=== PATIENT | male | born 1955 | race Caucasian/White ===

== ENCOUNTER 2016-11-10 05:40 | Inpatient (IN) | payer OTHER ==
[~2016-11-10 05:40] MED LIST: ALBUMIN HUMAN 25% 50 ML IV ONE; ALBUMIN HUMAN 5% 500 ML IVPB ONE; ASPIRIN 325 MG TAB PO ONE; ATORVASTATIN 10 MG TAB PO ONE; CALCIUM CHLORIDE 100 MG/ML 10 ML SYRINGE IV ONE; CHLORHEXIDINE GLUCONATE 15 ML CUP MUCOUS MEM ONE; CLEVIDIPINE BUTYRATE 25 MG in EMPTY BAG 1 BAG IV ONE; DEXTROSE 5% IN WATER 1,000 ML with POTASSIUM CHLORIDE 110 MEQ, MAGNESIUM SULFATE 16 MEQ... IV ONE; DEXTROSE 5% IN WATER 1,000 ML with POTASSIUM CHLORIDE 25 MEQ, SODIUM CHLORIDE 4MEQ/ML V... IV ONE; HEPARIN SODIUM 1,000 UNIT/ML VIAL IV ONE; HEPARIN SODIUM,PORCINE 5,000 UNIT in SODIUM CHLORIDE 0.9% 500 ML IV ONE; INSULIN REGULAR 100 UNIT in SODIUM CHLORIDE 0.9% 100 ML IV ONE; LACTATED RINGERS 1,000 ML IV ONE; LACTATED RINGERS 1,000 ML IV SCH; MAGNESIUM SULFATE MG 500 MG/ML VIAL IV ONE; METOPROLOL TARTRATE 12.5 MG TAB PO ONE; NITROGLYCERIN-D5W PMX 25 MG/250 ML BTL IV ONE; NITROGLYCERIN-D5W PMX 50 MG in DEXTROSE/WATER 1 250ML.BAG IV ONE; NOREPINEPHRIN 4 MG-0.9% NS PMX 4 MG/250 ML ML IV ONE; PAPAVERINE 360 MG in SODIUM CHLORIDE 0.9% 90 ML IV ONE; PHENYLEPHRINE 40 MG in SODIUM CHLORIDE 0.9% 250 ML IV ONE; PHENYLEPHRINE-0.9% NACL SYG 1 MG/10 ML SYRINGE IV ONE; PROPOFOL 50 ML IV ONE; PROTAMINE SULFATE 10 MG/ML 25 ML VIAL IV ONE; PROTAMINE SULFATE 250 MG in EMPTY BAG 1 BAG IV ONE; SODIUM BICARB 8.4% 50 ML SYR (1 MEQ/ML) IV ONE; SODIUM CHLORIDE 0.9% 1,000 ML IV ONE; ceFAZolin 1,000 MG in SODIUM CHLORIDE 0.9% IRRIGATIO 1,000 ML IRRIGATION ONE; ceFAZolin 2,000 MG in SODIUM CHLORIDE 0.9% 30 ML IVPB ONE
[2016-11-10] MEDS ORDERED: LIDOCAINE 2% SYG (PF) 100 MG/5 ML ONE (08:00)
[2016-11-10] MEDS ORDERED: HEPARIN SODIUM 1,000 UNIT/ML VIAL ONE (08:00)
[2016-11-10] MEDS ORDERED: ALBUMIN HUMAN 5% 250 ML BOTTLE IVPB ONE (08:00)
[2016-11-10] MEDS ORDERED: PROPOFOL 10 MG/ML 20 ML VIAL IV ONE (08:00)
[2016-11-10] MEDS ORDERED: ceFAZolin 1,000 MG VIAL ONE (08:00)
[2016-11-10] MEDS ORDERED: fentaNYL (PF) 50 MCG/ML 50 ML VIAL ONE (08:00)
[2016-11-10] MEDS ORDERED: ePHEDrine 50 MG/ML 1 ML AMP ONE (08:00)
[2016-11-10] MEDS ORDERED: fentaNYL (PF) 50 MCG/ML 2 ML AMP ONE (08:00)
[2016-11-10] MEDS ORDERED: ELECTROLYTE-R (PH 7.4) 1,000 ML IV.SOLN IV ONE (08:00)
[2016-11-10] MEDS ORDERED: MIDAZOLAM 2 MG/2 ML VIAL ONE (08:00)
[2016-11-10] MEDS ORDERED: HEPARIN SODIUM,PORCINE 10,000 UNIT/ML 1 ML VIAL ONE (08:00)
[2016-11-10] MEDS ORDERED: MAGNESIUM SULFATE 4 MEQ/ML 2 ML VIAL ONE (08:00)
[2016-11-10] MEDS ORDERED: POTASSIUM CHLORIDE OPEN HEART 20 MEQ/50 ML BAG IVPB ONE (08:00)
[2016-11-10] MEDS ORDERED: VECURONIUM 10 MG VIAL IV ONE (08:00)
[2016-11-10] MEDS ORDERED: PHENYLEPHRINE-0.9% NACL SYG 1 MG/10 ML SYRINGE ONE (08:00)
[2016-11-10] MEDS ORDERED: PROTAMINE SULFATE 10 MG/ML 5 ML VIAL IV ONE (08:00)
[2016-11-10] MEDS ORDERED: SODIUM CHLORIDE 0.9% IRRIG 1,000 ML BTL IRRIGATION ONE (08:00)
[2016-11-10 09:07] LABS: Glucose,Whole Blood 108 mg/dL (75-99)
[2016-11-10 09:19] LABS: ABG Base Excess 1.7 mmol/L; ABG HCO3 26 mmol/L (21-25); ABG Oxygen Saturation 96.9 % (94-97); ABG PCO2 43 mmHg (35-45); ABG PH 7.41 (7.35-7.45); ABG PO2 86 mmHg (83-108)
[2016-11-10 10:38] LABS: Glucose,Whole Blood 128 mg/dL (75-99)
[2016-11-10 11:15] LABS: Glucose,Whole Blood 116 mg/dL (75-99)
[2016-11-10 12:00] LABS: Glucose,Whole Blood 129 mg/dL (75-99)
[2016-11-10 12:55] LABS: Glucose,Whole Blood 128 mg/dL (75-99)
[2016-11-10] MEDS ORDERED: NITROGLYCERIN-D5W PMX 50 MG in DEXTROSE/WATER 1 250ML.BAG IV SCH (13:56)
[2016-11-10] MEDS ORDERED: BENZOCAINE/MENTHOL LOZENG 1 EACH LOZENGE MUCOUS MEM PRN (13:56)
[2016-11-10] MEDS ORDERED: Potassium Replacement Protocol 1 EACH MISC MISCELLANE PRN ×2 (13:56→20:04)
[2016-11-10] MEDS ORDERED: Magnesium Replacement Protocol 1 EACH MISC MISCELLANE PRN ×3 (13:56→20:05)
[2016-11-10] MEDS ORDERED: ONDANSETRON 4 MG/2 ML VIAL IVP PRN (13:56)
[2016-11-10] MEDS ORDERED: CALCIUM GLUCONATE 2,000 MG in SODIUM CHLORIDE 0.9% 100 ML IVPB PRN (13:56)
[2016-11-10] MEDS ORDERED: ASPIRIN 300 MG SUPP RECTAL ONE (13:56)
[2016-11-10] MEDS ORDERED: METOCLOPRAMIDE 5 MG/ML 2 ML VIAL IVP PRN (13:56)
[2016-11-10] MEDS ORDERED: Phosphorus Replacement Protoco 1 EACH MISC MISCELLANE PRN ×2 (13:56→20:11)
[2016-11-10 14:13] LABS: Glucose,Whole Blood 117 mg/dL (75-99)
[2016-11-10] MEDS: MORPHINE SULFATE 2 MG/ML SYRINGE IVP PRN ×3 (14:30→18:07)
[2016-11-10 14:38] LABS: Ionized Calcium 4.6 mg/dL (4.5-5.3)
[2016-11-10 14:45] LABS: Basophils % (A) 0 %; CH 33.5; CHCM 34.9; Eosinophils # (A) 0.1 k/uL (0-0.7); Eosinophils % (A) 2 %; HCT 29.5 % (39.0-53.0); HDW 2.31; Luc # (Auto) 0.07; Luc % (Auto) 1; Lymphocytes % (A) 16 %; MCH 32.5 pg (25.0-35.0); MCHC 33.8 g/dL (31.0-37.0); MCV 96.2 fL (80.0-100.0); Mean Platelet Volume 6.9; Monocytes # (A) 0.1 k/uL (0-1.0); Monocytes % (A) 2 %; Neutrophils # (A) 5.3 k/uL (1.3-7.7); Neutrophils % (A) 79 %; RBC 3.07 m/uL (4.30-5.90); RDW 13.7 % (11.5-15.5); WBC 6.7 k/uL (3.8-10.6); WBC (Perox) 7.07
[2016-11-10 14:46] LABS: ALT 31 U/L (21-72); AST 21 U/L (17-59); Alkaline Phosphatase 35 U/L (38-126); Anion Gap 9 mmol/L; Blood Urea Nitrogen 10 mg/dL (9-20); Calcium 8.1 mg/dL (8.4-10.2); Carbon Dioxide 24 mmol/L (22-30); Chloride 102 mmol/L (98-107); Glucose 116 mg/dL (74-99); Non-African American GFR(MDRD) >60 (>60 ml/min/1.73 sqM); Potassium 4.1 mmol/L (3.5-5.1); Sodium 135 mmol/L (137-145); Total Bilirubin 0.8 mg/dL (0.2-1.3); Total Protein 5.7 g/dL (6.3-8.2)
[2016-11-10 14:50] LABS: INR 1.2 (<1.1); Partial Thromboplastin Time 26.1 sec (22.0-30.0); Prothrombin Time 11.8 sec (9.0-12.0)
[2016-11-10 14:54] LABS: Glucose,Whole Blood 138 mg/dL (75-99)
--- NOTE | 2016-11-10 14:57 | XR ---
EXAMINATION TYPE: XR chest 1V portable DATE OF EXAM: 11/10/2016 2:31 PM HISTORY: Post Op CABG COMPARISON: 11/03/2016 TECHNIQUE: Single view of the chest is submitted. FINDINGS: Endotracheal tube, NG tube, SG catheter, mediastianal drains and chest tubes are appropriately placed . Post operative changes of CABG. No sizeable pneumothorax. There is a near complete opacification of the right hemithorax which may reflect large pleural effusi on or hemothorax. The heart is not enlarged. IMPRESSION: 1. Post operative changes of CABG. 2. There is a near complete opacification of the right hemithorax which may reflect large pleural eff usion or hemothorax.
[2016-11-10] MEDS: PROPOFOL 500 MG in EMPTY BAG 1 BAG IV SCH ×5 (15:10→21:50)
[2016-11-10] MEDS: LACTATED RINGERS 1,000 ML IV SCH (15:11)
--- NOTE | 2016-11-10 15:12 | XR ---
EXAMINATION TYPE: XR chest 1V portable DATE OF EXAM: 11/10/2016 3:08 PM HISTORY: Post Op CABG COMPARISON: 11/10/2016 TECHNIQUE: Single view of the chest is submitted. FINDINGS: Endotracheal tube, NG tube, SG catheter, mediastianal drains and chest tubes are appropriately placed . Post operative changes of CABG. No sizeable pneumothorax. Moderate opacification right hemithorax with slight improvement in aeration. Correlate for atelectasi s and/or pleural effusion. The left lung is clear. The heart is not enlarged. IMPRESSION: 1. Moderate opacification right hemithorax with slight improvement in aeration. Correlate for atelec tasis and/or pleural effusion. The left lung is clear.
[2016-11-10] MEDS: CLEVIDIPINE BUTYRATE 25 MG in EMPTY BAG 1 BAG IV SCH ×2 (15:13→19:00)
[2016-11-10 15:30] LABS: ABG Base Excess -0.2 mmol/L; ABG HCO3 24 mmol/L (21-25); ABG Oxygen Saturation 99.3 % (94-97); ABG PCO2 39 mmHg (35-45); ABG PO2 149 mmHg (83-108); ABG TCO2 25 mmol/L (19-24)
[2016-11-10 16:04] LABS: Glucose,Whole Blood 126 mg/dL (75-99)
[2016-11-10] MEDS: ceFAZolin 2 GM in SODIUM CHLORIDE 0.9% 100 ML IVPB SCH (16:06)
[2016-11-10] MEDS: IPRATROPIUM-ALBUTEROL 3 ML NEB INHALATION SCH ×3 (16:44→23:15)
[2016-11-10 16:59] LABS: Glucose,Whole Blood 128 mg/dL (75-99)
--- NOTE | 2016-11-10 17:07 | XR ---
EXAMINATION TYPE: XR chest 1V portable DATE OF EXAM: 11/10/2016 4:52 PM COMPARISON: NONE INDICATION: Previous abnormal chest, post bronchoscopy. TECHNIQUE: Single frontal view of the chest is obtained. FINDINGS: The heart size is normal. The pulmonary vasculature is normal. Increased lung markings are on the right. An endotracheal tube is present with the tip above the fela na. Nasogastric tube transverses the thorax. There may be a mediastinal tube present on the right. Sw an-Sergey catheter is present with tip in the distal right pulmonary artery. Right-sided chest tube is present. No pneumothorax is evident. Left-sided chest tube is present. No left pneumothorax is presen t. IMPRESSION: 1. Improving aeration to the right lung compared to the previous abnormal chest x-ray. 2. Multiple lines and catheters discussed above.
[2016-11-10 17:14] LABS: Basophils % (A) 0 %; CH 33.8; CHCM 35.9; Eosinophils # (A) 0.1 k/uL (0-0.7); Eosinophils % (A) 2 %; HGB 11.4 gm/dL (13.0-17.5); Luc # (Auto) 0.08; Luc % (Auto) 1; Lymphocytes # (A) 1.1 k/uL (1.0-4.8); Lymphocytes % (A) 16 %; MCH 33.7 pg (25.0-35.0); MCHC 35.7 g/dL (31.0-37.0); MCV 94.4 fL (80.0-100.0); Mean Platelet Volume 6.6; Monocytes # (A) 0.2 k/uL (0-1.0); Monocytes % (A) 3 %; Neutrophils # (A) 5.4 k/uL (1.3-7.7); Neutrophils % (A) 78 %; RBC 3.39 m/uL (4.30-5.90); RDW 13.4 % (11.5-15.5); WBC 6.9 k/uL (3.8-10.6); WBC (Perox) 7.53
[2016-11-10 18:00] LABS: Glucose,Whole Blood 140 mg/dL (75-99)
[2016-11-10] MEDS: ACETAMINOPHEN IV (For NPO) 1,000 MG in EMPTY BAG 1 BAG IVPB SCH (18:12)
--- NOTE | 2016-11-10 18:13 | P.CNPUL ---
History of Present Illness Consult date: 11/10/16 Requesting physician: Ollie Ortega Reason for consult: other (status post CABG, patient is on mechanical ventilation.) Chief complaint: status post CABG History of present illness: this is a 61-year-old white male with recent cardiac evaluation by Dr. Gilman, patient was found to have significant coronary artery disease. He underwent elective myocardial revascularization today, postoperatively he was on mechanical ventilation, and I was asked to see him on consultation. Based on a consultation dated 11/03/2016done by the nurse practitioner of Dr. Ortega, patient was scheduled for bypass grafting using internal mammary artery, patient is known to have history of hyperlipidemia, hypertension, nicotine dependence, patient chews tobacco, and he had a previous history of PTCA. Patient is also known to have strong family history of coronary artery disease. Upon arrival to the ICU post surgery, patient was noted to have significant opacification of the right lung, and we clearly determined that the patient has a mucus plugging involving mostly the right upper lobe, and right middle lobe. Upon arrival to the ICU, stat bronchoscopy was done, and I was able to clear mucous plugs from the right upper lobe mostly, some mucous plugs from the right middle lobe, and minimal purulent secretions in the right lower lobe. Left side was noted to be unremarkable. Review of Systems ROS unobtainable: due to endotracheal tube Past Medical History Past Medical History: Coronary Artery Disease (CAD), Hypertension, Myocardial Infarction (PA) Additional Past Medical History / Comment(s): gout Last Myocardial Infarction Date:: 1999 History of Any Multi-Drug Resistant Organisms: None Reported Past Surgical History: Heart Catheterization With Stent Additional Past Surgical History / Comment(s): stent x1 Past Anesthesia/Blood Transfusion Reactions: No Reported Reaction Date of Last Stent Placement:: 1999 Past Psychological History: No Psychological Hx Reported Smoking Status: Current every day smoker Past Alcohol Use History: Heavy Additional Past Alcohol Use History / Comment(s): chews tobacco, one tin last 3- 4 days, drinks 6-8 beers a day Past Drug Use History: None Reported - Past Family History Sister(s) Family Medical History: Cancer Additional Family Medical History / Comment(s): thyroid Medications and Allergies Home Medications Medication Instructions Recorded Confirmed Type Aspirin EC [Ecotrin] 325 mg PO DAILY 11/01/15 11/10/16 History Metoprolol Tartrate [Lopressor] 25 mg PO BID 11/01/15 11/10/16 History Atorvastatin [Lipitor] 40 mg PO HS 11/03/16 11/10/16 History Enalapril/Hydrochlorothiazide 1 tab PO DAILY 11/03/16 11/10/16 History [Vaseretic 10-25 mg] Thiamine [Vitamin B-1] 100 mg PO DAILY 11/07/16 11/10/16 History Allergies Allergy/AdvReac Type Severity Reaction Status Date / Time Penicillins Allergy Rash/Hives Verified 11/07/16 14:29 Physical Exam Vitals: Vital Signs Temp Pulse Pulse Resp BP BP BP 11/10/16 17:30 77 19 11/10/16 17:15 74 20 11/10/16 17:13 72 11/10/16 17:00 75 19 11/10/16 16:45 70 13 11/10/16 16:30 76 16 11/10/16 16:15 67 11 L 11/10/16 16:00 97.2 F L 65 75 11 L 117/77 11/10/16 15:45 65 12 11/10/16 15:30 65 12 11/10/16 15:15 67 12 11/10/16 15:00 71 24 11/10/16 14:45 65 12 11/10/16 14:30 75 17 117/77 11/10/16 14:15 73 12 117/77 11/10/16 13:56 95.9 F L 11/10/16 06:02 98.1 F 53 L 18 163/81 176/81 Pulse Ox 11/10/16 17:30 97 11/10/16 17:15 100 11/10/16 17:13 11/10/16 17:00 11/10/16 16:45 100 11/10/16 16:30 97 11/10/16 16:15 99 11/10/16 16:00 99 11/10/16 15:45 98 11/10/16 15:30 98 11/10/16 15:15 99 11/10/16 15:00 97 11/10/16 14:45 100 11/10/16 14:30 99 11/10/16 14:15 100 11/10/16 13:56 99 11/10/16 06:02 99 Intake and Output 11/10/16 11/10/1617 06:59 14:59 22:59 Intake Total 148.5 187.75 Output Total 1671 400 Balance -1522.5 -212.25 Intake: Intake, IV Titration 148.5 187.75 Amount Clevidipine Butyrate 25 12 12 mg In Empty Bag 1 bag @ 1 MG/HR 2 mls/hr IV .Q24H [facility] Rx#:[id number] Insulin Regular 100 unit 2 In Sodium Chloride 0.9% 100 ml @ Per Protocol IV .Q0M GAL[facility] Rx#:[id number] Lactated Ringers 1,000 ml 100 100 @ 50 mls/hr IV .Q20H [facility] Rx#:[id number] Nitroglycerin-D5w Pmx 50 4.5 4 mg In Dextrose/Water 1 250ml.bag @ 5 MCG/MIN 1.5 mls/hr IV .Q24H [facility] Rx#: [id number] Propofol 500 mg In Empty 32 69.75 Bag 1 bag @ Titrate IV . Q0M [facility] Rx#:[id number] Output: Chest Tube Drainage 161 100 Left Lateral Chest 20 0 Mediastinal 70 55 Right Lateral Chest 71 45 Urine 1010 300 Estimated Blood Loss 500 Other: Voiding Method Indwelling Catheter Weight 89.61 kg 89.61 kg Patient Weight 11/11/16 06:59 Weight 89.61 kg ABP, PAP, CO, CI - Last 8 Hours Arterial Blood Pressure 119/58 Arterial Blood Pressure 130/63 Arterial Blood Pressure 119/61 Arterial Blood Pressure 98/57 Arterial Blood Pressure 126/69 Arterial Blood Pressure 110/55 Arterial Blood Pressure 113/54 Arterial Blood Pressure 113/55 Arterial Blood Pressure 115/53 Arterial Blood Pressure 115/54 Arterial Blood Pressure 131/68 Arterial Blood Pressure 116/56 Arterial Blood Pressure 168/63 Arterial Blood Pressure 156/75 Pulmonary Artery Pressure 45/25 Pulmonary Artery Pressure 37/22 Pulmonary Artery Pressure 34/21 Pulmonary Artery Pressure 39/27 Pulmonary Artery Pressure 49/28 Pulmonary Artery Pressure 36/21 Pulmonary Artery Pressure 26/18 Pulmonary Artery Pressure 34/24 Pulmonary Artery Pressure 36/20 Pulmonary Artery Pressure 37/21 Pulmonary Artery Pressure 44/30 Pulmonary Artery Pressure 36/21 Pulmonary Artery Pressure 41/23 Pulmonary Artery Pressure 38/25 Cardiac Output 5.4 Cardiac Output 5.4 Cardiac Output 5.4 Cardiac Output 5.1 Cardiac Output 5.1 Cardiac Output 5.1 Cardiac Output 5.1 Cardiac Output 6 Cardiac Output 5.5 Cardiac Output 5.9 Cardiac Index 2.6 Cardiac Index 2.4 Cardiac Index 2.9 Cardiac Index 2.6 Cardiac Index 2.8 Physical Exam: Revealed a 61-year-old white male on mechanical ventilation, in no distress. HEENT:[Neck is supple.] [No neck masses.] [No thyromegaly.] [No JVD.] endotracheal tube was noted to be intact. Chest: [diminished breath sounds on the right side with expiratory rhonchi and wheezes noted bilaterally.] Cardiac Exam: [Normal S1 and S2, no S3 gallop, 2/6 systolic murmur throughout the precordium, positive pericardial rub] Abdomen: [Soft, nontender, no megaly, no rebound, no guarding, normal bowel sounds.] Extremities: [No clubbing, no edema, no cyanosis.] Neurological Exam: [cannot be assessed, patient is fully sedated on mechanical ventilation. Results - Laboratory Findings CBC and BMP: 11/10/16 16:55 11/10/16 14:11 ABG ABG pH 7.40 (7.35-7.45) 11/10/16 14:52 ABG pCO2 39 mmHg (35-45) 11/10/16 14:52 ABG pO2 149 mmHg (83-108) H 11/10/16 14:52 ABG O2 Saturation 99.3 % (94-97) H 11/10/16 14:52 PT/INR, D-dimer PT 11.8 sec (9.0-12.0) 11/10/16 14:11 INR 1.2 (<1.1) 11/10/16 14:11 Abnormal lab findings: Abnormal Labs 11/03/16 11/10/16 11/10/16 10:10 09:02 09:09 RBC Hgb Hct ABG pO2 ABG HCO3 26 H ABG Total CO2 ABG O2 Saturation Sodium Glucose POC Glucose (mg/dL) 108 H Calcium Alkaline Phosphatase Total Protein Crossmatch See Detail 11/10/16 11/10/16 11/10/16 10:35 11:14 11:58 RBC Hgb Hct ABG pO2 ABG HCO3 ABG Total CO2 ABG O2 Saturation Sodium Glucose POC Glucose (mg/dL) 128 H 116 H 129 H Calcium Alkaline Phosphatase Total Protein Crossmatch 11/10/16 11/10/1617 12:52 14:10 14:11 RBC 3.07 L Hgb 10.0 L D Hct 29.5 L ABG pO2 ABG HCO3 ABG Total CO2 ABG O2 Saturation Sodium Glucose POC Glucose (mg/dL) 128 H 117 H Calcium Alkaline Phosphatase Total Protein Crossmatch 11/10/16 11/10/16 11/10/16 14:11 14:52 14:53 RBC Hgb Hct ABG pO2 149 H ABG HCO3 ABG Total CO2 25 H ABG O2 Saturation 99.3 H Sodium 135 L Glucose 116 H POC Glucose (mg/dL) 138 H Calcium 8.1 L Alkaline Phosphatase 35 L Total Protein 5.7 L Crossmatch 11/10/16 11/10/16 11/10/16 16:03 16:55 16:55 RBC 3.39 L Hgb 11.4 L Hct 32.0 L ABG pO2 ABG HCO3 ABG Total CO2 ABG O2 Saturation Sodium Glucose POC Glucose (mg/dL) 126 H 128 H Calcium Alkaline Phosphatase Total Protein Crossmatch 11/10/16 17:59 RBC Hgb Hct ABG pO2 ABG HCO3 ABG Total CO2 ABG O2 Saturation Sodium Glucose POC Glucose (mg/dL) 140 H Calcium Alkaline Phosphatase Total Protein Crossmatch - Diagnostic Findings Chest x-ray: image reviewed (significant opacification noted of the right lung related to mucus plugging mostly involving the right upper lobe and right middle lobe) Assessment and Plan Plan: impression: 1 status post CABG, postoperative day #0. 2 history of nicotine dependence and suspect some component of COPD 3 history of documented coronary artery disease based on a recent cardiac catheterization 4 history ofpercutaneous revascularization of the proximal right coronary artery in 2000 5history of hypertension 6 history of myocardial infarction 7 status post bronchoscopy and bronchoalveolar lavage of the right upper lobe read lobe and right lower lobe upon arrival to the ICU. From the OR Recommendation: Patient will be kept on mechanical ventilation tonight, will be placed on bronchodilators, steroids, keep the patient on relatively high PEEP, and we will use a relatively higher tidal volumes. Based on the chest x-ray in a.m., may consider weaning and extubation. Discussed his condition with the family prior to bronchoscopy. Time with Patient: Greater than 30
[2016-11-10] MEDS: methylPREDNISolone SOD SUCCI 40 MG/ML 1 ML VIAL IV SCH (18:36)
[2016-11-10 19:09] LABS: Glucose,Whole Blood 147 mg/dL (75-99)
--- NOTE | 2016-11-10 19:23 | CONS ---
DATE OF CONSULTATION: REASON FOR CONSULTATION: Management of elevated blood sugars. Patient is a very pleasant 61-year-old gentleman who is admitted for coronary artery bypass grafting. Patient is intubated and sedated, calm at present. Patient is on 80% FiO2. Patient has 3 chest tubes, one right, left and sternal chest tube which is draining bloody fluid. Patient has near-complete whitening of the right chest, for which patient is undergoing extensive suctioning. Pulmonary will evaluate the patient as well. FiO2 is being tapered down. Patient will soon be extubated today or tomorrow, depending on his parameters and repeat chest x-ray findings. Patient's blood sugars are a bit elevated and patient is on IV insulin at this point of time. His elevated blood sugars are due to D5 nitroglycerin. Patient is getting IV insulin as per the protocol. Patient is also on clevidipine to prevent vasospasm. REVIEW OF SYSTEMS: Unable to obtain at this point of time because of his clinical condition. Medications were reviewed. Significant ones are discussed above. Past medical history is significant for: 1. Coronary artery disease. 2. Hypertension. 3. Myocardial infarction in the past. 4. Cardiac catheterization with stent placement in the past as well. SOCIAL HISTORY: Patient is a heavy smoker; smokes 3 to 4 cigarettes per day. Drinks about 6 to 8 beers a day. No drug abuse history. FAMILY HISTORY: Thyroid cancer. PHYSICAL EXAMINATION: VITAL SIGNS: Temperature 96.9, pulse of 68, respiratory rate of 12. Blood pressure is 117/77. Saturating at 98% on above-mentioned vent settings. Rest of the vent settings are PEEP of 5, set-up respiratory rate of 12, and patient is breathing over the ventilator. Patient is sedated, intubated, calm. RASS score of around minus 2 to minus 3. HEENT: Pupils are round and equally reacting to light. EOMI. No scleral icterus. No conjunctival pallor. Normocephalic, atraumatic. No pharyngeal erythema. No thyromegaly. CHEST EXAMINATION: Chest tubes as mentioned above. ABDOMEN: Soft, nontender, nondistended, normoactive bowel sounds. No palpable organomegaly. MUSCULOSKELETAL: No joint swelling or deformity. EXTREMITIES: No cyanosis, clubbing, or pedal edema. NEUROLOGICAL: RASS score minus 2 to minus 3. SKIN: No rashes. LABORATORY DATA: CBC, CMP essentially within normal limits. Chest x-ray findings as mentioned above. Moderate opacification of right hemithorax, for which patient already has a chest tube in, and also deep suctioning is being done. ASSESSMENT AND PLAN: 1. Acute hypoxic respiratory failure post cardiac catheterization. Patient is intubated, sedated. Pulmonary will evaluate the patient as well. Patient has near-complete opacity of the right chest. Patient already has a right chest tube and also undergoing deep suctioning. Further management as per pulmonary service. 2. Elevated blood sugars due to D5 with nitroglycerin. Continue with IV insulin as per the protocol from Cardiothoracic Surgery. 3. Myocardial infarction in the past. 4. Nicotine abuse. 5. Alcohol abuse. Patient is expected to have withdrawals. Will watch for any alcohol withdrawals. 6. Coronary artery disease, for which patient underwent CABG. Postoperative CABG management as per primary service. Thank you for letting me participate in this patient's care. Will continue to follow the patient.
[2016-11-10 19:24] LABS: Basophils % (A) 0 %; CH 33.5; CHCM 34.7; Eosinophils # (A) 0.1 k/uL (0-0.7); Eosinophils % (A) 1 %; HCT 32.8 % (39.0-53.0); HDW 2.31; HGB 11.1 gm/dL (13.0-17.5); Luc # (Auto) 0.06; Luc % (Auto) 1; Lymphocytes # (A) 0.7 k/uL (1.0-4.8); Lymphocytes % (A) 10 %; MCH 32.8 pg (25.0-35.0); MCHC 33.8 g/dL (31.0-37.0); Mean Platelet Volume 6.9; Monocytes # (A) 0.2 k/uL (0-1.0); Monocytes % (A) 3 %; Neutrophils # (A) 6.2 k/uL (1.3-7.7); Neutrophils % (A) 85 %; RBC 3.38 m/uL (4.30-5.90); RDW 13.8 % (11.5-15.5); WBC 7.3 k/uL (3.8-10.6)
[2016-11-10 19:31] LABS: ALT 31 U/L (21-72); AST 24 U/L (17-59); Alkaline Phosphatase 41 U/L (38-126); Anion Gap 9 mmol/L; Blood Urea Nitrogen 9 mg/dL (9-20); Calcium 8.3 mg/dL (8.4-10.2); Carbon Dioxide 24 mmol/L (22-30); Chloride 100 mmol/L (98-107); Glucose 142 mg/dL (74-99); Magnesium 1.9 mg/dL (1.6-2.3); Non-African American GFR(MDRD) >60 (>60 ml/min/1.73 sqM); Phosphorous 2.3 mg/dL (2.5-4.5); Potassium 3.9 mmol/L (3.5-5.1); Sodium 133 mmol/L (137-145); Total Bilirubin 0.6 mg/dL (0.2-1.3); Total Protein 6.2 g/dL (6.3-8.2)
[2016-11-10] MEDS: BUDESONIDE 1 MG/2 ML NEBU INHALATION SCH (19:31)
[2016-11-10 20:00] LABS: ABG Base Excess -1.9 mmol/L; ABG HCO3 21 mmol/L (21-25); ABG PCO2 30 mmHg (35-45); ABG PH 7.46 (7.35-7.45); ABG PO2 84 mmHg (83-108); ABG TCO2 22 mmol/L (19-24)
[2016-11-10 20:00] LABS: Glucose,Whole Blood 138 mg/dL (75-99)
[2016-11-10] MEDS: MAGNESIUM SULFATE-D5W PMX 1 GM in DEXTROSE/WATER 1 100ML.BAG IVPB SCH ×2 (20:26→21:25)
--- NOTE | 2016-11-10 20:46 | XR ---
EXAMINATION TYPE: XR chest 1V portable DATE OF EXAM: 11/10/2016 8:29 PM COMPARISON: Today HISTORY: Hypoxemia TECHNIQUE: Single frontal view of the chest is obtained. FINDINGS: There is no gross heart failure.. There is a right chest tube in good position. There is r ight jugular catheter with the tip probably in the right ventricle. Nasogastric tube is noted. Endotr acheal tube appears in good position. There is mild linear density at the lung bases. I see no pneumo thorax. There is a left chest tube noted. There is blunting of costophrenic angles. IMPRESSION: Patchy atelectasis at the lung bases with pleural effusions. No significant change katheryn red to exam earlier today at 5:00 PM.
[2016-11-10] MEDS ORDERED: POTASSIUM CHLORIDE ORAL LIQUID 40 MEQ/30 ML CUP NG-TUBE SCH (21:00)
[2016-11-10] MEDS ORDERED: SODIUM PHOSPHATE 10 MMOL in SODIUM CHLORIDE 0.9% 250 ML IVPB ONE (21:00)
[2016-11-10 21:02] LABS: Glucose,Whole Blood 192 mg/dL (75-99)
[2016-11-10] MEDS: INSULIN REGULAR 100 UNIT in SODIUM CHLORIDE 0.9% 100 ML IV SCH (21:16)
[2016-11-10] MEDS: HEPARIN SODIUM,PORCINE 5,000 UNIT/ML 1 ML VIAL SQ SCH (21:25)
[2016-11-10] MEDS: ALBUMIN HUMAN 5% 250 ML in EMPTY BAG 1 BAG IVPB PRN ×2 (21:51→22:49)
[2016-11-10 22:08] LABS: Glucose,Whole Blood 206 mg/dL (75-99)
--- NOTE | 2016-11-10 22:28 | OP ---
DATE OF SERVICE: SURGEON: Ollie Ortega MD HAT MARKER: Yony Bautista and Rianna JONES PREOPERATIVE DIAGNOSES: 1. Coronary artery disease, status post prior stenting to his right coronary artery. 2. Preserved Left ventricular function. 3. Hyperlipidemia. 4. Hypertension. 5. ETOH abuse. POSTOPERATIVE DIAGNOSES: 1. Coronary artery disease, status post prior stenting to his right coronary artery. 2. Preserved Left ventricular function. 3. Hyperlipidemia. 4. Hypertension. 5. ETOH abuse. OPERATION: 1. Total arterial non- aortic touch off-pump double coronary artery bypass grafting using in situ skeletonized right internal mammary artery to the left anterior descending artery across the anterior midline, in situ totally skeletonized left internal mammary artery to the first obtuse marginal artery. 2. Transesophageal echocardiogram and epiaortic scanning. 3. Intraoperative graft flow measurements using the [place] system. ANESTHESIA: ESTIMATED BLOOD LOSS: SPECIMENS REMOVED: COMPLICATIONS: OPERATIVE FINDINGS: INDICATION FOR SURGERY: Patient is a 61-year-old gentleman who underwent in 2000 stenting to his proximal right coronary artery. Patient failed a recent stress test and underwent cardiac catheterization that showed mild in-stent restenosis. However, he had severe stenosis of the left system. There is a small second obtuse marginal artery that is probably too small for bypass. Patient has been brought in for bypass to his LAD, and his first obtuse marginal artery with no plans to bypass the right coronary artery (non flow limiting in- stent restenosis) and this was decided along with the patient valve pipe irrigator. We will be using bilateral internal mammary artery in view of the patient's age. Risks, benefits, and alternatives were discussed with him. He understood them and agreed to proceed. DESCRIPTION OF THE PROCEDURE: Patient had a right internal jugular Draper-Sergey catheter and a right radial arterial line placed in the preoperative holding area. His PA pressure was 50/20 and cardiac index was 2.2. Subsequently he was brought to the operating room, where general endotracheal anesthesia was induced uneventfully. Patient received 2 grams of cefazolin intravenously. The Tay catheter was inserted. The chest, abdomen and both lower extremities were prepped and draped using ChloraPrep. Ioban was used to cover the skin. Transesophageal echocardiogram revealed mild mitral valve regurgitation and overall preserved left ventricular function. Midline sternotomy was performed and no bone wax was used. The left hemisternum was elevated and the left internal mammary artery was harvested in a totally skeletonized fashion. The left pleura was intentionally opened and in this process and was drained with a 8 [place] chest tube. The same was repeated on the right side. The right hemisternum was elevated and the right internal mammary artery was harvested in a totally skeletonized fashion. The right pleura was intentionally opened in this process was drained with 28 [place] chest tube the patient was given 5000 units of heparin initially before double clipping the left internal mammary artery before its bifurcation and transecting it and had an excellent pulsatile flow in it and was around 2.5 mm in diameter and we clipped the right internal mammary artery beyond the bifurcation and it had an excellent flow in it and was around 2 mm in diameter. Mediastinal fat was transected between 2 ties and epiaortic scanning revealed normal ascending aorta. Pericardium was opened in an inverted T fashion and pericardial cradle was created. Findings included a short aorta and a mildly enlarged heart. The [employer] system along with the exposed device were used to perform the surgery on a beating heart. Heparinization to achieve an ACT above 250 seconds was administered. The ACT was repeated every 20 to 30 minutes and additional heparin given if needed. The first distal anastomosis was between the in situ right internal mammary artery that crossed the midline and went anteriorly to the mid aspect of the left anterior descending artery, which was found in an intramyocardial position. That artery, accepted a 1.5 mm shunt, had profuse flow in it and the anastomosis was completed using Prolene 7-0 in continuous fashion. The anastomosis appeared satisfactory and graft flow measurement revealed a flow of 68 mL per minute with diastolic filling at 71%, showing excellent graft. Subsequently using the exposed device, we exposed the lateral wall. As predicted the second obtuse marginal artery was a small non- bypassable vessel and the first obtuse marginal artery site for bypass was seen proximally but was mainly intramyocardial. That artery was opened as it went intra-myocardial very proximally by the KATRINA, accepted a 2 mm shunt, had profuse flow in it and the left internal mammary artery was anastomosed to it using Prolene 7-0 in continuous fashion. The shunt was removed before completing the anastomosis, which was well tolerated. A deep groove was made on the right and on the left pleural pericardial fat to accommodate respective mammary medial to the lung and away from the posterior sternal table. There was no kinking noted of the grafts. Measurements of graft flow in the ROPER with the heart down and everything positioned remained excellent. Satisfied with the distal anastomoses, test dose and full dose protamine was given. A 36 [place] chest tube was left in the substernal place. The pericardial fat was loosely approximated over the conduits however, I could not cover the last third of the right internal mammary artery on the left side in view of paucity of fat. After ensuring adequate hemostasis and hemodynamics and after correct sponge, instrument and needle count, the sternum was approximated using 5 [id number] Blanco cable after interposing fibrillar between the sternal edges. Thorough irrigation with cefazolin followed. The rest of the closure proceeded in layers. Skin glue was applied. Patient did not receive any blood bank product and received 250 mL of Cell Saver.Patient was transferred to the ICU on low-dose nitroglycerin with excellent hemodynamics and normal EKG. Transesophageal echocardiogram done at the end of the case showed no changes. MTDD
[2016-11-10] MEDS ORDERED: PROPOFOL 10 MG/ML 50 ML VIAL IV ONE (23:30)
[2016-11-11] MEDS ORDERED: PROPOFOL 10 MG/ML 50 ML VIAL IV ONE ×2 (01:36)
[2016-11-11] MEDS: IPRATROPIUM-ALBUTEROL 3 ML NEB INHALATION SCH ×6 (03:07→23:24)
[2016-11-11 04:20] LABS: Glucose,Whole Blood 209 mg/dL (75-99)
[2016-11-11 04:20] LABS: Glucose,Whole Blood 182 mg/dL (75-99)
[2016-11-11 04:20] LABS: Glucose,Whole Blood 207 mg/dL (75-99)
[2016-11-11 04:20] LABS: Glucose,Whole Blood 192 mg/dL (75-99)
[2016-11-11 04:21] LABS: Glucose,Whole Blood 175 mg/dL (75-99)
[2016-11-11 04:44] LABS: Glucose,Whole Blood 165 mg/dL (75-99)
[2016-11-11 05:07] LABS: Basophils % (A) 0 %; CH 33.2; CHCM 34.3; Eosinophils % (A) 0 %; HCT 30.3 % (39.0-53.0); HDW 2.36; HGB 10.4 gm/dL (13.0-17.5); Luc # (Auto) 0.04; Luc % (Auto) 1; Lymphocytes # (A) 0.4 k/uL (1.0-4.8); Lymphocytes % (A) 6 %; MCH 33.4 pg (25.0-35.0); MCHC 34.4 g/dL (31.0-37.0); MCV 97.3 fL (80.0-100.0); Mean Platelet Volume 6.7; Monocytes # (A) 0.1 k/uL (0-1.0); Monocytes % (A) 2 %; Neutrophils # (A) 7.3 k/uL (1.3-7.7); Neutrophils % (A) 92 %; RBC 3.12 m/uL (4.30-5.90); RDW 13.7 % (11.5-15.5); WBC 7.9 k/uL (3.8-10.6); WBC (Perox) 8.42
[2016-11-11 05:12] LABS: INR 1.1 (<1.1); Partial Thromboplastin Time 24.1 sec (22.0-30.0)
[2016-11-11] MEDS: PROPOFOL 500 MG in EMPTY BAG 1 BAG IV SCH ×9 (05:14→21:50)
[2016-11-11 05:48] LABS: Glucose,Whole Blood 172 mg/dL (75-99)
[2016-11-11 05:59] LABS: Ionized Calcium 4.8 mg/dL (4.5-5.3)
[2016-11-11 06:06] LABS: ALT 22 U/L (21-72); AST 20 U/L (17-59); Alkaline Phosphatase 33 U/L (38-126); Anion Gap 17 mmol/L; Blood Urea Nitrogen 8 mg/dL (9-20); Calcium 8.5 mg/dL (8.4-10.2); Carbon Dioxide 19 mmol/L (22-30); Chloride 102 mmol/L (98-107); Glucose 162 mg/dL (74-99); Magnesium 2.5 mg/dL (1.6-2.3); Non-African American GFR(MDRD) >60 (>60 ml/min/1.73 sqM); Phosphorous 1.5 mg/dL (2.5-4.5); Potassium 3.4 mmol/L (3.5-5.1); Sodium 138 mmol/L (137-145); Total Bilirubin 0.4 mg/dL (0.2-1.3); Total Protein 6.1 g/dL (6.3-8.2)
[2016-11-11 06:52] LABS: Glucose,Whole Blood 170 mg/dL (75-99)
[2016-11-11] MEDS ORDERED: POTASSIUM CHLORIDE ORAL LIQUID 40 MEQ/30 ML CUP PO ONE ×2 (07:00→22:17)
[2016-11-11] MEDS: POTASSIUM CHLORIDE 10 MEQ in WATER FOR INJECTION 1 100ML.BAG IVPB SCH ×2 (07:00→08:05)
[2016-11-11] MEDS ORDERED: FUROSEMIDE 10 MG/ML 2 ML VIAL IV ONE ×2 (07:00→22:18)
[2016-11-11] MEDS: SODIUM PHOSPHATE 10 MMOL in SODIUM CHLORIDE 0.9% 250 ML IVPB SCH ×2 (07:08→09:29)
--- NOTE | 2016-11-11 07:19 | PCN ---
DATE OF PROCEDURE: PROCEDURE: Bronchoscopy and bronchoalveolar lavage of the right upper lobe, right middle lobe and right lower lobe. PREOPERATIVE DIAGNOSIS: Acute right lung collapse secondary to mucus plugging involving mostly the right upper lobe and right middle lobe. POSTOPERATIVE DIAGNOSIS: Acute right lung collapse secondary to mucus plugging involving mostly the right upper lobe and right middle lobe. ANESTHESIA USED: Patient was already on propofol, and he received morphine sulfate 2 mg in addition to the propofol drip. PROCEDURE: Patient was already on mechanical ventilation postoperatively from CABG. He was monitored, we were able to monitor his O2 saturation continuously, blood pressure was monitored continuously and cardiac rhythm was also continuously monitored. Patient was already on mechanical ventilation with endotracheal tube in place, and an adapter was applied to the endotracheal tube, which was also connected to mechanical ventilation. After adequate sedation, the bronchoscope was advanced through the adapter down to the endotracheal tube and down to the distal the trachea and stephanie. A thorough examination was done on the left side; there was no evidence of any endobronchial tumors or secretions on the left side. Left upper lobe, lingula, and left lower lobe were all well examined. However, as we entered the right mainstem bronchus, there was a significant mucous plugging involving the right upper lobe, completely occluding the right upper lobe. This was suctioned and the right upper lobe was lavaged. Minimal mucous plugs were noted in the right middle lobe and these were also suctioned. As we went down to the right lower lobe, there were minimal purulent secretions and these were suctioned easily. Procedure was well tolerated. No evidence of any immediate complications. The purulent secretions and mucous plugs were sent for different cultures.
[2016-11-11] MEDS: BUDESONIDE 1 MG/2 ML NEBU INHALATION SCH ×2 (07:54→19:18)
[2016-11-11 07:59] LABS: Glucose,Whole Blood 163 mg/dL (75-99)
[2016-11-11] MEDS: ACETAMINOPHEN IV (For NPO) 1,000 MG in EMPTY BAG 1 BAG IVPB SCH ×4 (08:04→19:48)
--- NOTE | 2016-11-11 08:05 | XR ---
EXAMINATION TYPE: XR chest 1V portable DATE OF EXAM: 11/11/2016 7:00 AM HISTORY: Post Operative Cardiac Surgery. REFERENCE: Previous study dated 11/10/2016. FINDINGS: There has been a previous midline sternotomy. The patient is ET tube, NG tube and [place] catheter remain in place, unchanged in appearance. The tip of the [place] catheter appears to be i n the main pulmonary outflow tract. Bilateral pleural drains are in place. There is left basilar atelectasis. There are small, bilateral effusions, worse on the left the right. Aeration at the right lung base has improved. The heart remains enlarged. IMPRESSION: CONTINUING POSTOPERATIVE CHANGE.
[2016-11-11] MEDS: ceFAZolin 2 GM in SODIUM CHLORIDE 0.9% 100 ML IVPB SCH ×3 (08:07)
[2016-11-11] MEDS: HEPARIN SODIUM,PORCINE 5,000 UNIT/ML 1 ML VIAL SQ SCH ×2 (08:07→15:17)
[2016-11-11] MEDS: methylPREDNISolone SOD SUCCI 40 MG/ML 1 ML VIAL IV SCH ×3 (08:07→15:18)
[2016-11-11] MEDS: METOPROLOL TARTRATE 12.5 MG TAB PO SCH ×3 (08:09→21:54)
[2016-11-11] MEDS: ASPIRIN 325 MG TAB PO SCH (08:09)
[2016-11-11] MEDS: PANTOPRAZOLE 40 MG/10 ML VIAL IVP SCH (08:10)
[2016-11-11 09:02] LABS: Glucose,Whole Blood 170 mg/dL (75-99)
[2016-11-11 09:11] LABS: ABG HCO3 19 mmol/L (21-25); ABG PCO2 35 mmHg (35-45); ABG PH 7.36 (7.35-7.45); ABG PO2 76 mmHg (83-108)
[2016-11-11 09:12] LABS: ABG Base Excess -5.6 mmol/L; ABG Oxygen Saturation 94.6 % (94-97); ABG TCO2 20 mmol/L (19-24)
[2016-11-11] MEDS: CLOPIDOGREL 75 MG TAB PO SCH (09:29)
[2016-11-11] MEDS: ATORVASTATIN 40 MG TAB PO SCH (09:29)
[2016-11-11 10:11] LABS: Glucose,Whole Blood 159 mg/dL (75-99)
[2016-11-11 11:09] LABS: Glucose,Whole Blood 149 mg/dL (75-99)
[2016-11-11 11:18] LABS: ABG Base Excess -3.9 mmol/L; ABG HCO3 20 mmol/L (21-25); ABG PCO2 33 mmHg (35-45); ABG PO2 63 mmHg (83-108); ABG TCO2 21 mmol/L (19-24)
--- NOTE | 2016-11-11 11:22 | P.PN ---
<Nasra Whaley - Last Filed: 11/11/16 11:11> Subjective Principal diagnosis: Coronary artery disease, status post prior stenting to his right coronary artery. Preserved left ventricular function. Hyperlipidemia. Hypertension. ETOH abuse. POD #1 total arterial non-aortic patch off-pump double coronary artery bypass grafting using in situ skeletonized right internal mammary artery to the left anterior descending artery across the anterior midline in situ totally skeletonized left internal mammary artery to the first obtuse marginal artery. Intraoperative transesophageal echocardiogram and epi-aortic scanning. Intraoperative graft flow measurements using the [employer] system Patient currently sedated on mechanical ventilation. Objective - Vital Signs Vital signs: Vital Signs Temp 98.2 F 11/10/16 20:00 Pulse 85 11/11/16 10:30 Resp 20 11/11/16 10:30 BP 158/82 11/11/16 10:30 Pulse Ox 93 L 11/11/16 10:30 Intake & Output 11/10/16 11/11/16 11/11/16 18:59 06:59 18:59 Intake Total 502.25 1819.469 865.933 Output Total 2351 1012 735 Balance -1848.75 807.469 130.933 Weight 89.61 kg 99.8 kg 99.8 kg Intake: Intake, IV Titration 502.25 1819.469 865.933 Amount ACETAMINOPHEN IV (For NPO 200 100 ) 1,000 mg In Empty Bag 1 bag @ 400 mls/hr IVPB Q6HR [facility] Rx#:[id number] Albumin Human 5% 250 ml 500 In Empty Bag 1 bag @ 250 mls/hr IVPB Q1HR [facility] Rx#: [id number] Clevidipine Butyrate 25 36 50.301 1.733 mg In Empty Bag 1 bag @ 1 MG/HR 2 mls/hr IV .Q24H [facility] Rx#:[id number] Insulin Regular 100 unit 4 13.018 60.684 In Sodium Chloride 0.9% 100 ml @ Per Protocol IV .Q0M [facility] Rx#:[id number] Lactated Ringers 1,000 ml 300 500 180 @ 20 mls/hr IV .Q24H [facility] Rx#:[id number] Magnesium Sulfate-D5w Pmx 200 1 gm In Dextrose/Water 1 100ml.bag @ 100 mls/hr IVPB Q1H [facility] Rx#: [id number] Nitroglycerin-D5w Pmx 50 10.5 52.65 17.600 mg In Dextrose/Water 1 250ml.bag @ 5 MCG/MIN 1.5 mls/hr IV .Q24H [facility] Rx#: [id number] Potassium Chloride 10 meq 100 In Water For Injection 1 100ml.bag @ 100 mls/hr IVPB Q1H [facility] Rx#: [id number] Propofol 500 mg In Empty 151.75 178.50 55.916 Bag 1 bag @ Titrate IV . Q0M [facility] Rx#:[id number] Sodium Phosphate 10 mmol 125 In Sodium Chloride 0.9% 250 ml @ 125 mls/hr IVPB ONCE ONE Rx#:[id number] Sodium Phosphate 10 mmol 250 In Sodium Chloride 0.9% 250 ml @ 125 mls/hr IVPB Q2H [facility] Rx#:[id number] ceFAZolin 2 gm In Sodium 100 Chloride 0.9% 100 ml @ 100 mls/hr IVPB Q8HR [facility] Rx#:[id number] Output: Chest Tube Drainage 341 252 50 Left Lateral Chest 20 62 20 Mediastinal 185 160 0 Right Lateral Chest 136 30 30 Urine 1510 760 685 Estimated Blood Loss 500 Other: Voiding Method Indwelling Catheter Indwelling Catheter Indwelling Catheter # Bowel Movements 0 0 ABP, PAP, CO, CI - Last Documented Arterial Blood Pressure 158/63 Pulmonary Artery Pressure 53/27 Cardiac Output 8.1 Cardiac Index 3.9 - Constitutional General appearance: Present: no acute distress - Respiratory Details: Lungs sounds diminished bilaterally. Respirations even, nonlabored on mechanical ventilation. Current settings tidal [place] 500, FiO2 50%, respiratory 20, PEEP 8. All chest tubes connected to -20 cm wall suction, no air leaks present. Left pleural chest tube draining to 23 mL serosanguineous fluid in the last 8 hours, 100 mL since surgery. Right pleural chest tube draining 10 mL serosanguineous fluid in the last 8 hours 250 mL since surgery. Mediastinal chest tube drained 110 mL serosanguineous fluid in the last 8 hours, 400 mL since surgery. - Cardiovascular Details: S1, S2 present. Regular rate and rhythm, normal sinus rhythm on telemetry. Sternum stable. Lima-Sergey catheter present through right internal jugular cordis line. Left radial arterial line present. Teds/SCDs present. - Gastrointestinal Gastrointestinal Comment(s): Abdomen soft, nontender, nondistended. Hypoactive bowel sounds present. OG tube present to low intermittent suction - Genitourinary Genitourinary Comment(s): Tay present draining clear, yellow urine. Urine output 60-125 mL per hour. - Integumentary Integumentary Comment(s): Anterior chest wall incision covered with dry intact silver dressing. - Psychiatric Psychiatric Comment(s): Currently sedated on mechanical ventilation. - Labs CBC & Chem 7: 11/11/16 04:30 11/11/16 04:30 Labs: Abnormal Lab Results - Last 24 Hours (Table) 11/03/16 11/10/16 11/10/16 Range/Units 10:10 11:14 11:58 RBC (4.30-5.90) m/uL Hgb (13.0-17.5) gm/dL Hct (39.0-53.0) % Lymphocytes # (1.0-4.8) k/uL ABG pH (7.35-7.45) ABG pCO2 (35-45) mmHg ABG pO2 (83-108) mmHg ABG HCO3 (21-25) mmol/L ABG Total CO2 (19-24) mmol/L ABG O2 Saturation (94-97) % Sodium (137-145) mmol/L Potassium (3.5-5.1) mmol/L Carbon Dioxide (22-30) mmol/L BUN (9-20) mg/dL Glucose (74-99) mg/dL POC Glucose (mg/dL) 116 H 129 H (75-99) mg/dL Calcium (8.4-10.2) mg/dL Phosphorus (2.5-4.5) mg/dL Magnesium (1.6-2.3) mg/dL Alkaline Phosphatase (38-126) U/L Total Protein (6.3-8.2) g/dL Crossmatch See Detail 11/10/16 11/10/16 11/10/16 Range/Units 12:52 14:10 14:11 RBC 3.07 L (4.30-5.90) m/uL Hgb 10.0 L D (13.0-17.5) gm/dL Hct 29.5 L (39.0-53.0) % Lymphocytes # (1.0-4.8) k/uL ABG pH (7.35-7.45) ABG pCO2 (35-45) mmHg ABG pO2 (83-108) mmHg ABG HCO3 (21-25) mmol/L ABG Total CO2 (19-24) mmol/L ABG O2 Saturation (94-97) % Sodium (137-145) mmol/L Potassium (3.5-5.1) mmol/L Carbon Dioxide (22-30) mmol/L BUN (9-20) mg/dL Glucose (74-99) mg/dL POC Glucose (mg/dL) 128 H 117 H (75-99) mg/dL Calcium (8.4-10.2) mg/dL Phosphorus (2.5-4.5) mg/dL Magnesium (1.6-2.3) mg/dL Alkaline Phosphatase (38-126) U/L Total Protein (6.3-8.2) g/dL Crossmatch 11/10/16 11/10/16 11/10/16 Range/Units 14:11 14:52 14:53 RBC (4.30-5.90) m/uL Hgb (13.0-17.5) gm/dL Hct (39.0-53.0) % Lymphocytes # (1.0-4.8) k/uL ABG pH (7.35-7.45) ABG pCO2 (35-45) mmHg ABG pO2 149 H (83-108) mmHg ABG HCO3 (21-25) mmol/L ABG Total CO2 25 H (19-24) mmol/L ABG O2 Saturation 99.3 H (94-97) % Sodium 135 L (137-145) mmol/L Potassium (3.5-5.1) mmol/L Carbon Dioxide (22-30) mmol/L BUN (9-20) mg/dL Glucose 116 H (74-99) mg/dL POC Glucose (mg/dL) 138 H (75-99) mg/dL Calcium 8.1 L (8.4-10.2) mg/dL Phosphorus (2.5-4.5) mg/dL Magnesium (1.6-2.3) mg/dL Alkaline Phosphatase 35 L (38-126) U/L Total Protein 5.7 L (6.3-8.2) g/dL Crossmatch 11/10/16 11/10/16 11/10/16 Range/Units 16:03 16:55 16:55 RBC 3.39 L (4.30-5.90) m/uL Hgb 11.4 L (13.0-17.5) gm/dL Hct 32.0 L (39.0-53.0) % Lymphocytes # (1.0-4.8) k/uL ABG pH (7.35-7.45) ABG pCO2 (35-45) mmHg ABG pO2 (83-108) mmHg ABG HCO3 (21-25) mmol/L ABG Total CO2 (19-24) mmol/L ABG O2 Saturation (94-97) % Sodium (137-145) mmol/L Potassium (3.5-5.1) mmol/L Carbon Dioxide (22-30) mmol/L BUN (9-20) mg/dL Glucose (74-99) mg/dL POC Glucose (mg/dL) 126 H 128 H (75-99) mg/dL Calcium (8.4-10.2) mg/dL Phosphorus (2.5-4.5) mg/dL Magnesium (1.6-2.3) mg/dL Alkaline Phosphatase (38-126) U/L Total Protein (6.3-8.2) g/dL Crossmatch 11/10/16 11/10/16 11/10/16 Range/Units 17:59 19:07 19:10 RBC 3.38 L (4.30-5.90) m/uL Hgb 11.1 L (13.0-17.5) gm/dL Hct 32.8 L (39.0-53.0) % Lymphocytes # 0.7 L (1.0-4.8) k/uL ABG pH (7.35-7.45) ABG pCO2 (35-45) mmHg ABG pO2 (83-108) mmHg ABG HCO3 (21-25) mmol/L ABG Total CO2 (19-24) mmol/L ABG O2 Saturation (94-97) % Sodium (137-145) mmol/L Potassium (3.5-5.1) mmol/L Carbon Dioxide (22-30) mmol/L BUN (9-20) mg/dL Glucose (74-99) mg/dL POC Glucose (mg/dL) 140 H 147 H (75-99) mg/dL Calcium (8.4-10.2) mg/dL Phosphorus (2.5-4.5) mg/dL Magnesium (1.6-2.3) mg/dL Alkaline Phosphatase (38-126) U/L Total Protein (6.3-8.2) g/dL Crossmatch 11/10/16 11/10/16 11/10/16 Range/Units 19:10 19:58 19:59 RBC (4.30-5.90) m/uL Hgb (13.0-17.5) gm/dL Hct (39.0-53.0) % Lymphocytes # (1.0-4.8) k/uL ABG pH 7.46 H (7.35-7.45) ABG pCO2 30 L (35-45) mmHg ABG pO2 (83-108) mmHg ABG HCO3 (21-25) mmol/L ABG Total CO2 (19-24) mmol/L ABG O2 Saturation (94-97) % Sodium 133 L (137-145) mmol/L Potassium (3.5-5.1) mmol/L Carbon Dioxide (22-30) mmol/L BUN (9-20) mg/dL Glucose 142 H (74-99) mg/dL POC Glucose (mg/dL) 138 H (75-99) mg/dL Calcium 8.3 L (8.4-10.2) mg/dL Phosphorus 2.3 L (2.5-4.5) mg/dL Magnesium (1.6-2.3) mg/dL Alkaline Phosphatase (38-126) U/L Total Protein 6.2 L (6.3-8.2) g/dL Crossmatch 11/10/16 11/10/16 11/10/16 Range/Units 21:00 22:03 23:04 RBC (4.30-5.90) m/uL Hgb (13.0-17.5) gm/dL Hct (39.0-53.0) % Lymphocytes # (1.0-4.8) k/uL ABG pH (7.35-7.45) ABG pCO2 (35-45) mmHg ABG pO2 (83-108) mmHg ABG HCO3 (21-25) mmol/L ABG Total CO2 (19-24) mmol/L ABG O2 Saturation (94-97) % Sodium (137-145) mmol/L Potassium (3.5-5.1) mmol/L Carbon Dioxide (22-30) mmol/L BUN (9-20) mg/dL Glucose (74-99) mg/dL POC Glucose (mg/dL) 192 H 206 H 209 H (75-99) mg/dL Calcium (8.4-10.2) mg/dL Phosphorus (2.5-4.5) mg/dL Magnesium (1.6-2.3) mg/dL Alkaline Phosphatase (38-126) U/L Total Protein (6.3-8.2) g/dL Crossmatch 11/10/16 11/11/16 11/11/16 Range/Units 23:58 01:31 02:34 RBC (4.30-5.90) m/uL Hgb (13.0-17.5) gm/dL Hct (39.0-53.0) % Lymphocytes # (1.0-4.8) k/uL ABG pH (7.35-7.45) ABG pCO2 (35-45) mmHg ABG pO2 (83-108) mmHg ABG HCO3 (21-25) mmol/L ABG Total CO2 (19-24) mmol/L ABG O2 Saturation (94-97) % Sodium (137-145) mmol/L Potassium (3.5-5.1) mmol/L Carbon Dioxide (22-30) mmol/L BUN (9-20) mg/dL Glucose (74-99) mg/dL POC Glucose (mg/dL) 207 H 192 H 182 H (75-99) mg/dL Calcium (8.4-10.2) mg/dL Phosphorus (2.5-4.5) mg/dL Magnesium (1.6-2.3) mg/dL Alkaline Phosphatase (38-126) U/L Total Protein (6.3-8.2) g/dL Crossmatch 11/11/16 11/11/16 11/11/16 Range/Units 03:48 04:30 04:30 RBC 3.12 L (4.30-5.90) m/uL Hgb 10.4 L (13.0-17.5) gm/dL Hct 30.3 L (39.0-53.0) % Lymphocytes # 0.4 L (1.0-4.8) k/uL ABG pH (7.35-7.45) ABG pCO2 (35-45) mmHg ABG pO2 (83-108) mmHg ABG HCO3 (21-25) mmol/L ABG Total CO2 (19-24) mmol/L ABG O2 Saturation (94-97) % Sodium (137-145) mmol/L Potassium 3.4 L (3.5-5.1) mmol/L Carbon Dioxide 19 L (22-30) mmol/L BUN 8 L (9-20) mg/dL Glucose 162 H (74-99) mg/dL POC Glucose (mg/dL) 175 H (75-99) mg/dL Calcium (8.4-10.2) mg/dL Phosphorus 1.5 L (2.5-4.5) mg/dL Magnesium 2.5 H (1.6-2.3) mg/dL Alkaline Phosphatase 33 L (38-126) U/L Total Protein 6.1 L (6.3-8.2) g/dL Crossmatch 11/11/16 11/11/16 11/11/16 Range/Units 04:43 05:47 06:49 RBC (4.30-5.90) m/uL Hgb (13.0-17.5) gm/dL Hct (39.0-53.0) % Lymphocytes # (1.0-4.8) k/uL ABG pH (7.35-7.45) ABG pCO2 (35-45) mmHg ABG pO2 (83-108) mmHg ABG HCO3 (21-25) mmol/L ABG Total CO2 (19-24) mmol/L ABG O2 Saturation (94-97) % Sodium (137-145) mmol/L Potassium (3.5-5.1) mmol/L Carbon Dioxide (22-30) mmol/L BUN (9-20) mg/dL Glucose (74-99) mg/dL POC Glucose (mg/dL) 165 H 172 H 170 H (75-99) mg/dL Calcium (8.4-10.2) mg/dL Phosphorus (2.5-4.5) mg/dL Magnesium (1.6-2.3) mg/dL Alkaline Phosphatase (38-126) U/L Total Protein (6.3-8.2) g/dL Crossmatch 11/11/16 11/11/16 11/11/16 Range/Units 07:58 09:00 09:03 RBC (4.30-5.90) m/uL Hgb (13.0-17.5) gm/dL Hct (39.0-53.0) % Lymphocytes # (1.0-4.8) k/uL ABG pH (7.35-7.45) ABG pCO2 (35-45) mmHg ABG pO2 76 L (83-108) mmHg ABG HCO3 19 L (21-25) mmol/L ABG Total CO2 (19-24) mmol/L ABG O2 Saturation (94-97) % Sodium (137-145) mmol/L Potassium (3.5-5.1) mmol/L Carbon Dioxide (22-30) mmol/L BUN (9-20) mg/dL Glucose (74-99) mg/dL POC Glucose (mg/dL) 163 H 170 H (75-99) mg/dL Calcium (8.4-10.2) mg/dL Phosphorus (2.5-4.5) mg/dL Magnesium (1.6-2.3) mg/dL Alkaline Phosphatase (38-126) U/L Total Protein (6.3-8.2) g/dL Crossmatch 11/11/16 11/11/16 Range/Units 10:10 11:08 RBC (4.30-5.90) m/uL Hgb (13.0-17.5) gm/dL Hct (39.0-53.0) % Lymphocytes # (1.0-4.8) k/uL ABG pH (7.35-7.45) ABG pCO2 (35-45) mmHg ABG pO2 (83-108) mmHg ABG HCO3 (21-25) mmol/L ABG Total CO2 (19-24) mmol/L ABG O2 Saturation (94-97) % Sodium (137-145) mmol/L Potassium (3.5-5.1) mmol/L Carbon Dioxide (22-30) mmol/L BUN (9-20) mg/dL Glucose (74-99) mg/dL POC Glucose (mg/dL) 159 H 149 H (75-99) mg/dL Calcium (8.4-10.2) mg/dL Phosphorus (2.5-4.5) mg/dL Magnesium (1.6-2.3) mg/dL Alkaline Phosphatase (38-126) U/L Total Protein (6.3-8.2) g/dL Crossmatch Microbiology - Last 24 Hours (Table) 11/10/16 16:40 Gram Stain - Preliminary Lung Aspirate - Right Bronchial Washings Culture - Preliminary 11/10/16 16:40 Fungal Culture - Preliminary Lung - Right 11/10/16 16:40 Acid Fast Bacilli Culture - Preliminary Lung - Right - Imaging and Cardiology Chest x-ray: report reviewed, image reviewed Assessment and Plan (1) Status post coronary artery bypass graft Status: Acute (2) Coronary artery disease Status: Acute (3) Family history of heart disease Status: Acute (4) History of PTCA Status: Acute (5) Hyperlipidemia Status: Acute (6) Hypertension Status: Acute (7) Nicotine dependence, chewing tobacco, uncomplicated Status: Acute Plan: 1. Continue aspirin, Lipitor, Plavix, heparin, Lopressor. 2. Ventilator management per pulmonology, wean O2 as tolerated. 3. Insulin drip/diabetic management per primary care service. 4. Will DC Lima today. 5. Potassium, magnesium replacement per protocol. 6. DC nitro drip. 7. Daily labs, chest x-rays. 8. GI/DVT prophylaxis. 9. More recommendations as patient progresses. Time with Patient: Greater than 30 <Thaddeus Kessler - Last Filed: 11/11/16 16:32> Objective - Vital Signs Vital signs: Vital Signs Temp 98.2 F 11/10/16 20:00 Pulse 62 11/11/16 16:00 Resp 20 11/11/16 16:00 BP 108/60 11/11/16 16:00 Pulse Ox 90 L 11/11/16 16:00 Intake & Output 11/10/16 11/11/16 11/11/16 18:59 06:59 18:59 Intake Total 502.25 8117.967 5225.116 Output Total 2351 1012 1595 Balance -1848.75 807.469 -17.884 Weight 89.61 kg 99.8 kg 99.8 kg Intake: Intake, IV Titration 502.25 0776.773 0750.116 Amount ACETAMINOPHEN IV (For NPO 200 200 ) 1,000 mg In Empty Bag 1 bag @ 400 mls/hr IVPB Q6HR [facility] Rx#:[id number] Albumin Human 5% 250 ml 500 In Empty Bag 1 bag @ 250 mls/hr IVPB Q1HR [facility] Rx#: [id number] Clevidipine Butyrate 25 36 50.301 7.266 mg In Empty Bag 1 bag @ 1 MG/HR 2 mls/hr IV .Q24H [facility] Rx#:[id number] Insulin Regular 100 unit 4 13.018 60.684 In Sodium Chloride 0.9% 100 ml @ Per Protocol IV .Q0M [facility] Rx#:[id number] Lactated Ringers 1,000 ml 300 500 430 @ 20 mls/hr IV .Q24H [facility] Rx#:[id number] Magnesium Sulfate-D5w Pmx 200 1 gm In Dextrose/Water 1 100ml.bag @ 100 mls/hr IVPB Q1H [facility] Rx#: [id number] Nitroglycerin-D5w Pmx 50 10.5 52.65 17.600 mg In Dextrose/Water 1 250ml.bag @ 5 MCG/MIN 1.5 mls/hr IV .Q24H [facility] Rx#: [id number] Potassium Chloride 10 meq 100 In Water For Injection 1 100ml.bag @ 100 mls/hr IVPB Q1H [facility] Rx#: [id number] Potassium Chloride 20 meq 100 In Water For Injection 1 100ml.bag @ 50 mls/hr IVPB ONCE ONE Rx#: [id number] Propofol 500 mg In Empty 151.75 178.50 131.566 Bag 1 bag @ Titrate IV . Q0M [facility] Rx#:[id number] Sodium Phosphate 10 mmol 125 In Sodium Chloride 0.9% 250 ml @ 125 mls/hr IVPB ONCE ONE Rx#:[id number] Sodium Phosphate 10 mmol 250 In Sodium Chloride 0.9% 250 ml @ 125 mls/hr IVPB Q2H [facility] Rx#:[id number] ceFAZolin 2 gm In Sodium 100 Chloride 0.9% 100 ml @ 100 mls/hr IVPB Q8HR [facility] Rx#:[id number] Other 180 Output: Chest Tube Drainage 341 252 140 Left Lateral Chest 20 62 40 Mediastinal 185 160 0 Right Lateral Chest 136 30 100 Urine 3532 613 1426 Estimated Blood Loss 500 Other: Voiding Method Indwelling Catheter Indwelling Catheter Indwelling Catheter # Bowel Movements 0 0 ABP, PAP, CO, CI - Last Documented Arterial Blood Pressure 133/54 Pulmonary Artery Pressure 44/21 Cardiac Output 6.8 Cardiac Index 3.3 - Labs CBC & Chem 7: 11/11/16 04:30 11/11/16 15:20 Labs: Abnormal Lab Results - Last 24 Hours (Table) 11/03/16 11/10/16 11/10/16 Range/Units 10:10 16:55 16:55 RBC 3.39 L (4.30-5.90) m/uL Hgb 11.4 L (13.0-17.5) gm/dL Hct 32.0 L (39.0-53.0) % Lymphocytes # (1.0-4.8) k/uL ABG pH (7.35-7.45) ABG pCO2 (35-45) mmHg ABG pO2 (83-108) mmHg ABG HCO3 (21-25) mmol/L ABG O2 Saturation (94-97) % Sodium (137-145) mmol/L Potassium (3.5-5.1) mmol/L Carbon Dioxide (22-30) mmol/L BUN (9-20) mg/dL Glucose (74-99) mg/dL POC Glucose (mg/dL) 128 H (75-99) mg/dL Calcium (8.4-10.2) mg/dL Phosphorus (2.5-4.5) mg/dL Magnesium (1.6-2.3) mg/dL Alkaline Phosphatase (38-126) U/L Total Protein (6.3-8.2) g/dL Crossmatch See Detail 11/10/16 11/10/16 11/10/16 Range/Units 17:59 19:07 19:10 RBC 3.38 L (4.30-5.90) m/uL Hgb 11.1 L (13.0-17.5) gm/dL Hct 32.8 L (39.0-53.0) % Lymphocytes # 0.7 L (1.0-4.8) k/uL ABG pH (7.35-7.45) ABG pCO2 (35-45) mmHg ABG pO2 (83-108) mmHg ABG HCO3 (21-25) mmol/L ABG O2 Saturation (94-97) % Sodium (137-145) mmol/L Potassium (3.5-5.1) mmol/L Carbon Dioxide (22-30) mmol/L BUN (9-20) mg/dL Glucose (74-99) mg/dL POC Glucose (mg/dL) 140 H 147 H (75-99) mg/dL Calcium (8.4-10.2) mg/dL Phosphorus (2.5-4.5) mg/dL Magnesium (1.6-2.3) mg/dL Alkaline Phosphatase (38-126) U/L Total Protein (6.3-8.2) g/dL Crossmatch 11/10/16 11/10/16 11/10/16 Range/Units 19:10 19:58 19:59 RBC (4.30-5.90) m/uL Hgb (13.0-17.5) gm/dL Hct (39.0-53.0) % Lymphocytes # (1.0-4.8) k/uL ABG pH 7.46 H (7.35-7.45) ABG pCO2 30 L (35-45) mmHg ABG pO2 (83-108) mmHg ABG HCO3 (21-25) mmol/L ABG O2 Saturation (94-97) % Sodium 133 L (137-145) mmol/L Potassium (3.5-5.1) mmol/L Carbon Dioxide (22-30) mmol/L BUN (9-20) mg/dL Glucose 142 H (74-99) mg/dL POC Glucose (mg/dL) 138 H (75-99) mg/dL Calcium 8.3 L (8.4-10.2) mg/dL Phosphorus 2.3 L (2.5-4.5) mg/dL Magnesium (1.6-2.3) mg/dL Alkaline Phosphatase (38-126) U/L Total Protein 6.2 L (6.3-8.2) g/dL Crossmatch 11/10/16 11/10/16 11/10/16 Range/Units 21:00 22:03 23:04 RBC (4.30-5.90) m/uL Hgb (13.0-17.5) gm/dL Hct (39.0-53.0) % Lymphocytes # (1.0-4.8) k/uL ABG pH (7.35-7.45) ABG pCO2 (35-45) mmHg ABG pO2 (83-108) mmHg ABG HCO3 (21-25) mmol/L ABG O2 Saturation (94-97) % Sodium (137-145) mmol/L Potassium (3.5-5.1) mmol/L Carbon Dioxide (22-30) mmol/L BUN (9-20) mg/dL Glucose (74-99) mg/dL POC Glucose (mg/dL) 192 H 206 H 209 H (75-99) mg/dL Calcium (8.4-10.2) mg/dL Phosphorus (2.5-4.5) mg/dL Magnesium (1.6-2.3) mg/dL Alkaline Phosphatase (38-126) U/L Total Protein (6.3-8.2) g/dL Crossmatch 11/10/16 11/11/16 11/11/16 Range/Units 23:58 01:31 02:34 RBC (4.30-5.90) m/uL Hgb (13.0-17.5) gm/dL Hct (39.0-53.0) % Lymphocytes # (1.0-4.8) k/uL ABG pH (7.35-7.45) ABG pCO2 (35-45) mmHg ABG pO2 (83-108) mmHg ABG HCO3 (21-25) mmol/L ABG O2 Saturation (94-97) % Sodium (137-145) mmol/L Potassium (3.5-5.1) mmol/L Carbon Dioxide (22-30) mmol/L BUN (9-20) mg/dL Glucose (74-99) mg/dL POC Glucose (mg/dL) 207 H 192 H 182 H (75-99) mg/dL Calcium (8.4-10.2) mg/dL Phosphorus (2.5-4.5) mg/dL Magnesium (1.6-2.3) mg/dL Alkaline Phosphatase (38-126) U/L Total Protein (6.3-8.2) g/dL Crossmatch 11/11/16 11/11/16 11/11/16 Range/Units 03:48 04:30 04:30 RBC 3.12 L (4.30-5.90) m/uL Hgb 10.4 L (13.0-17.5) gm/dL Hct 30.3 L (39.0-53.0) % Lymphocytes # 0.4 L (1.0-4.8) k/uL ABG pH (7.35-7.45) ABG pCO2 (35-45) mmHg ABG pO2 (83-108) mmHg ABG HCO3 (21-25) mmol/L ABG O2 Saturation (94-97) % Sodium (137-145) mmol/L Potassium 3.4 L (3.5-5.1) mmol/L Carbon Dioxide 19 L (22-30) mmol/L BUN 8 L (9-20) mg/dL Glucose 162 H (74-99) mg/dL POC Glucose (mg/dL) 175 H (75-99) mg/dL Calcium (8.4-10.2) mg/dL Phosphorus 1.5 L (2.5-4.5) mg/dL Magnesium 2.5 H (1.6-2.3) mg/dL Alkaline Phosphatase 33 L (38-126) U/L Total Protein 6.1 L (6.3-8.2) g/dL Crossmatch 11/11/16 11/11/16 11/11/16 Range/Units 04:43 05:47 06:49 RBC (4.30-5.90) m/uL Hgb (13.0-17.5) gm/dL Hct (39.0-53.0) % Lymphocytes # (1.0-4.8) k/uL ABG pH (7.35-7.45) ABG pCO2 (35-45) mmHg ABG pO2 (83-108) mmHg ABG HCO3 (21-25) mmol/L ABG O2 Saturation (94-97) % Sodium (137-145) mmol/L Potassium (3.5-5.1) mmol/L Carbon Dioxide (22-30) mmol/L BUN (9-20) mg/dL Glucose (74-99) mg/dL POC Glucose (mg/dL) 165 H 172 H 170 H (75-99) mg/dL Calcium (8.4-10.2) mg/dL Phosphorus (2.5-4.5) mg/dL Magnesium (1.6-2.3) mg/dL Alkaline Phosphatase (38-126) U/L Total Protein (6.3-8.2) g/dL Crossmatch 11/11/16 11/11/16 11/11/16 Range/Units 07:58 09:00 09:03 RBC (4.30-5.90) m/uL Hgb (13.0-17.5) gm/dL Hct (39.0-53.0) % Lymphocytes # (1.0-4.8) k/uL ABG pH (7.35-7.45) ABG pCO2 (35-45) mmHg ABG pO2 76 L (83-108) mmHg ABG HCO3 19 L (21-25) mmol/L ABG O2 Saturation (94-97) % Sodium (137-145) mmol/L Potassium (3.5-5.1) mmol/L Carbon Dioxide (22-30) mmol/L BUN (9-20) mg/dL Glucose (74-99) mg/dL POC Glucose (mg/dL) 163 H 170 H (75-99) mg/dL Calcium (8.4-10.2) mg/dL Phosphorus (2.5-4.5) mg/dL Magnesium (1.6-2.3) mg/dL Alkaline Phosphatase (38-126) U/L Total Protein (6.3-8.2) g/dL Crossmatch 11/11/16 11/11/16 11/11/16 Range/Units 10:10 11:08 11:13 RBC (4.30-5.90) m/uL Hgb (13.0-17.5) gm/dL Hct (39.0-53.0) % Lymphocytes # (1.0-4.8) k/uL ABG pH (7.35-7.45) ABG pCO2 33 L (35-45) mmHg ABG pO2 63 L (83-108) mmHg ABG HCO3 20 L (21-25) mmol/L ABG O2 Saturation 92.0 L (94-97) % Sodium (137-145) mmol/L Potassium (3.5-5.1) mmol/L Carbon Dioxide (22-30) mmol/L BUN (9-20) mg/dL Glucose (74-99) mg/dL POC Glucose (mg/dL) 159 H 149 H (75-99) mg/dL Calcium (8.4-10.2) mg/dL Phosphorus (2.5-4.5) mg/dL Magnesium (1.6-2.3) mg/dL Alkaline Phosphatase (38-126) U/L Total Protein (6.3-8.2) g/dL Crossmatch 11/11/16 11/11/16 11/11/16 Range/Units 13:02 14:02 15:16 RBC (4.30-5.90) m/uL Hgb (13.0-17.5) gm/dL Hct (39.0-53.0) % Lymphocytes # (1.0-4.8) k/uL ABG pH (7.35-7.45) ABG pCO2 (35-45) mmHg ABG pO2 (83-108) mmHg ABG HCO3 (21-25) mmol/L ABG O2 Saturation (94-97) % Sodium (137-145) mmol/L Potassium (3.5-5.1) mmol/L Carbon Dioxide (22-30) mmol/L BUN (9-20) mg/dL Glucose (74-99) mg/dL POC Glucose (mg/dL) 127 H 124 H 141 H (75-99) mg/dL Calcium (8.4-10.2) mg/dL Phosphorus (2.5-4.5) mg/dL Magnesium (1.6-2.3) mg/dL Alkaline Phosphatase (38-126) U/L Total Protein (6.3-8.2) g/dL Crossmatch 11/11/16 Range/Units 15:56 RBC (4.30-5.90) m/uL Hgb (13.0-17.5) gm/dL Hct (39.0-53.0) % Lymphocytes # (1.0-4.8) k/uL ABG pH (7.35-7.45) ABG pCO2 (35-45) mmHg ABG pO2 (83-108) mmHg ABG HCO3 (21-25) mmol/L ABG O2 Saturation (94-97) % Sodium (137-145) mmol/L Potassium (3.5-5.1) mmol/L Carbon Dioxide (22-30) mmol/L BUN (9-20) mg/dL Glucose (74-99) mg/dL POC Glucose (mg/dL) 134 H (75-99) mg/dL Calcium (8.4-10.2) mg/dL Phosphorus (2.5-4.5) mg/dL Magnesium (1.6-2.3) mg/dL Alkaline Phosphatase (38-126) U/L Total Protein (6.3-8.2) g/dL Crossmatch Microbiology - Last 24 Hours (Table) 11/10/16 16:40 Gram Stain - Preliminary Lung Aspirate - Right Bronchial Washings Culture - Preliminary 11/10/16 16:40 Fungal Culture - Preliminary Lung - Right 11/10/16 16:40 Acid Fast Bacilli Culture - Preliminary Lung - Right Assessment and Plan Plan: The patient was seen and examined. I agree with above assessment and plan. Patient had bronchoscopy performed yesterday for mucous plug. Today his chest x -rays clear. Pulmonary attempted to wean his ventilator setting afternoon however he failed. He remains intubated at this time. His Lima was removed. Otherwise he remains hemodynamically stable. We will try extubation again in the morning.
[2016-11-11] MEDS ORDERED: THIAMINE 100 MG TAB PO SCH (12:00)
--- NOTE | 2016-11-11 12:49 | CONS ---
DATE OF CONSULTATION: This is a 61-year-old gentleman who underwent aortocoronary bypass surgery with right internal mammary artery graft to LAD and a left internal mammary artery to OM. He is still intubated. There is some atelectasis with some oxygenation issues and this patient is going to probably be bronchoscoped today. However, he is in sinus rhythm, not on any drips other than a small dose of nitroglycerin, seems to be stable hemodynamically. PAST MEDICAL HISTORY: Remarkable for a recent cardiac cath by Dr. Gilman, which revealed significant disease involving the circumflex and LAD with calcification, RCA had a moderate noncritical disease. His LV function revealed anteroapical hypokinesia was about 45% to 50%. He also has a history of underlying hypertension and hyperlipidemia as well. Medications at home include aspirin, Lipitor, enalapril, metoprolol and thiamine. On examination, blood pressure is 150/80, pulse rate is about 90 per minute, sinus. HEENT unremarkable. Fundus was not examined by me. Neck is supple. No JVD. Heart exam reveals S1, S2 with distant heart sounds. No rub. Lungs reveal bilateral diminished air entry over both bases. Abdominal exam is soft. Central nervous system assessment was not performed. RECOMMENDATIONS: I am recommending that we will continue current medications. Dr. Jung is considering bronchoscopy for this patient. I will resume his cardiac oral medications when he is extubated. For now we will continue supportive care and ventilatory management is per Dr. Jung. Thank you very much for the consult.
[2016-11-11 13:05] LABS: Glucose,Whole Blood 127 mg/dL (75-99)
[2016-11-11] MEDS: MULTIVITAMINS, THERA LIQUID 237 ML BOTTLE PO SCH (13:08)
--- NOTE | 2016-11-11 13:25 | P.PN ---
Subjective Principal diagnosis: Status post CABG, postoperative day #1 This is a 61-year-old white male status post CABG, postoperative day #1, total arterial non-aortic patch off pump double coronary artery bypass grafting using in situ skeletonized right internal mammary artery to the left anterior descending across the anterior midline in situ totally skeletonized left internal mammary artery to the first obtuse marginal artery. Postoperatively patient was on mechanical ventilation, and upon arrival to the ICU he was found to have opacified right lung, he required bronchoscopy and extraction of mucous plugs mostly in the right upper lobe and right middle lobe. Remained on mechanical ventilation overnight, however this morning his gases are showing marginal oxygenation, his pO2 is only 63 on 50% and PEEP of 5. Patient was given a weaning trial with a pressure support of 8 and CPAP, ABG in half an hour is definitely poor showing very poor oxygenation, and his O2 saturation was in the 91% range. PO2 was only 63, hence I decided not to pursue any further weaning and extubation on this patient until his oxygenation improves better. Gram stain and cultures from the right upper lobe are pending. In the meantime the patient is receiving bronchodilators for underlying COPD, and he is also on steroids for significant wheezing noted yesterday after bronchoscopy. Patient remains on DuoNeb updrafts 4 times a day and when necessary. Objective - Vital Signs Vital signs: Vital Signs Temp 98.2 F 11/10/16 20:00 Pulse 77 11/11/16 13:00 Resp 5 L 11/11/16 13:00 BP 92/54 11/11/16 13:00 Pulse Ox 94 L 11/11/16 13:00 Intake & Output 11/10/16 11/11/16 11/11/16 18:59 06:59 18:59 Intake Total 502.25 1819.469 871.466 Output Total 2351 1012 735 Balance -1848.75 807.469 136.466 Weight 89.61 kg 99.8 kg 99.8 kg Intake: Intake, IV Titration 502.25 1819.469 871.466 Amount ACETAMINOPHEN IV (For NPO 200 100 ) 1,000 mg In Empty Bag 1 bag @ 400 mls/hr IVPB Q6HR [facility] Rx#:[id number] Albumin Human 5% 250 ml 500 In Empty Bag 1 bag @ 250 mls/hr IVPB Q1HR [facility] Rx#: [id number] Clevidipine Butyrate 25 36 50.301 7.266 mg In Empty Bag 1 bag @ 1 MG/HR 2 mls/hr IV .Q24H [facility] Rx#:[id number] Insulin Regular 100 unit 4 13.018 60.684 In Sodium Chloride 0.9% 100 ml @ Per Protocol IV .Q0M [facility] Rx#:[id number] Lactated Ringers 1,000 ml 300 500 180 @ 20 mls/hr IV .Q24H [facility] Rx#:[id number] Magnesium Sulfate-D5w Pmx 200 1 gm In Dextrose/Water 1 100ml.bag @ 100 mls/hr IVPB Q1H [facility] Rx#: [id number] Nitroglycerin-D5w Pmx 50 10.5 52.65 17.600 mg In Dextrose/Water 1 250ml.bag @ 5 MCG/MIN 1.5 mls/hr IV .Q24H [facility] Rx#: [id number] Potassium Chloride 10 meq 100 In Water For Injection 1 100ml.bag @ 100 mls/hr IVPB Q1H [facility] Rx#: [id number] Propofol 500 mg In Empty 151.75 178.50 55.916 Bag 1 bag @ Titrate IV . Q0M [facility] Rx#:[id number] Sodium Phosphate 10 mmol 125 In Sodium Chloride 0.9% 250 ml @ 125 mls/hr IVPB ONCE ONE Rx#:[id number] Sodium Phosphate 10 mmol 250 In Sodium Chloride 0.9% 250 ml @ 125 mls/hr IVPB Q2H [facility] Rx#:[id number] ceFAZolin 2 gm In Sodium 100 Chloride 0.9% 100 ml @ 100 mls/hr IVPB Q8HR [facility] Rx#:[id number] Output: Chest Tube Drainage 341 252 50 Left Lateral Chest 20 62 20 Mediastinal 185 160 0 Right Lateral Chest 136 30 30 Urine 1510 760 685 Estimated Blood Loss 500 Other: Voiding Method Indwelling Catheter Indwelling Catheter Indwelling Catheter # Bowel Movements 0 0 ABP, PAP, CO, CI - Last Documented Arterial Blood Pressure 126/54 Pulmonary Artery Pressure 42/22 Cardiac Output 7.7 Cardiac Index 3.7 - Exam Physical Exam: Revealed a 61-year-old white male on mechanical ventilation, in no distress. HEENT:[Neck is supple.] [No neck masses.] [No thyromegaly.] [No JVD.] endotracheal tube was noted to be intact. Chest: [diminished breath sounds on the right side with slight expiratory rhonchi and wheezes noted bilaterally.] Cardiac Exam: [Normal S1 and S2, no S3 gallop, 2/6 systolic murmur throughout the precordium, positive pericardial rub] Abdomen: [Soft, nontender, no megaly, no rebound, no guarding, normal bowel sounds.] Extremities: [No clubbing, no edema, no cyanosis.] Neurological Exam: [No gross focal neurologic deficit. Patient is awake, follows all instructions, but remains on mechanical ventilation. - Labs CBC & Chem 7: 11/11/16 04:30 11/11/16 04:30 Labs: Abnormal Lab Results - Last 24 Hours (Table) 11/03/16 11/10/16 11/10/16 Range/Units 10:10 14:10 14:11 RBC 3.07 L (4.30-5.90) m/uL Hgb 10.0 L D (13.0-17.5) gm/dL Hct 29.5 L (39.0-53.0) % Lymphocytes # (1.0-4.8) k/uL ABG pH (7.35-7.45) ABG pCO2 (35-45) mmHg ABG pO2 (83-108) mmHg ABG HCO3 (21-25) mmol/L ABG Total CO2 (19-24) mmol/L ABG O2 Saturation (94-97) % Sodium (137-145) mmol/L Potassium (3.5-5.1) mmol/L Carbon Dioxide (22-30) mmol/L BUN (9-20) mg/dL Glucose (74-99) mg/dL POC Glucose (mg/dL) 117 H (75-99) mg/dL Calcium (8.4-10.2) mg/dL Phosphorus (2.5-4.5) mg/dL Magnesium (1.6-2.3) mg/dL Alkaline Phosphatase (38-126) U/L Total Protein (6.3-8.2) g/dL Crossmatch See Detail 11/10/16 11/10/16 11/10/16 Range/Units 14:11 14:52 14:53 RBC (4.30-5.90) m/uL Hgb (13.0-17.5) gm/dL Hct (39.0-53.0) % Lymphocytes # (1.0-4.8) k/uL ABG pH (7.35-7.45) ABG pCO2 (35-45) mmHg ABG pO2 149 H (83-108) mmHg ABG HCO3 (21-25) mmol/L ABG Total CO2 25 H (19-24) mmol/L ABG O2 Saturation 99.3 H (94-97) % Sodium 135 L (137-145) mmol/L Potassium (3.5-5.1) mmol/L Carbon Dioxide (22-30) mmol/L BUN (9-20) mg/dL Glucose 116 H (74-99) mg/dL POC Glucose (mg/dL) 138 H (75-99) mg/dL Calcium 8.1 L (8.4-10.2) mg/dL Phosphorus (2.5-4.5) mg/dL Magnesium (1.6-2.3) mg/dL Alkaline Phosphatase 35 L (38-126) U/L Total Protein 5.7 L (6.3-8.2) g/dL Crossmatch 11/10/16 11/10/16 11/10/16 Range/Units 16:03 16:55 16:55 RBC 3.39 L (4.30-5.90) m/uL Hgb 11.4 L (13.0-17.5) gm/dL Hct 32.0 L (39.0-53.0) % Lymphocytes # (1.0-4.8) k/uL ABG pH (7.35-7.45) ABG pCO2 (35-45) mmHg ABG pO2 (83-108) mmHg ABG HCO3 (21-25) mmol/L ABG Total CO2 (19-24) mmol/L ABG O2 Saturation (94-97) % Sodium (137-145) mmol/L Potassium (3.5-5.1) mmol/L Carbon Dioxide (22-30) mmol/L BUN (9-20) mg/dL Glucose (74-99) mg/dL POC Glucose (mg/dL) 126 H 128 H (75-99) mg/dL Calcium (8.4-10.2) mg/dL Phosphorus (2.5-4.5) mg/dL Magnesium (1.6-2.3) mg/dL Alkaline Phosphatase (38-126) U/L Total Protein (6.3-8.2) g/dL Crossmatch 11/10/16 11/10/16 11/10/16 Range/Units 17:59 19:07 19:10 RBC 3.38 L (4.30-5.90) m/uL Hgb 11.1 L (13.0-17.5) gm/dL Hct 32.8 L (39.0-53.0) % Lymphocytes # 0.7 L (1.0-4.8) k/uL ABG pH (7.35-7.45) ABG pCO2 (35-45) mmHg ABG pO2 (83-108) mmHg ABG HCO3 (21-25) mmol/L ABG Total CO2 (19-24) mmol/L ABG O2 Saturation (94-97) % Sodium (137-145) mmol/L Potassium (3.5-5.1) mmol/L Carbon Dioxide (22-30) mmol/L BUN (9-20) mg/dL Glucose (74-99) mg/dL POC Glucose (mg/dL) 140 H 147 H (75-99) mg/dL Calcium (8.4-10.2) mg/dL Phosphorus (2.5-4.5) mg/dL Magnesium (1.6-2.3) mg/dL Alkaline Phosphatase (38-126) U/L Total Protein (6.3-8.2) g/dL Crossmatch 11/10/16 11/10/16 11/10/16 Range/Units 19:10 19:58 19:59 RBC (4.30-5.90) m/uL Hgb (13.0-17.5) gm/dL Hct (39.0-53.0) % Lymphocytes # (1.0-4.8) k/uL ABG pH 7.46 H (7.35-7.45) ABG pCO2 30 L (35-45) mmHg ABG pO2 (83-108) mmHg ABG HCO3 (21-25) mmol/L ABG Total CO2 (19-24) mmol/L ABG O2 Saturation (94-97) % Sodium 133 L (137-145) mmol/L Potassium (3.5-5.1) mmol/L Carbon Dioxide (22-30) mmol/L BUN (9-20) mg/dL Glucose 142 H (74-99) mg/dL POC Glucose (mg/dL) 138 H (75-99) mg/dL Calcium 8.3 L (8.4-10.2) mg/dL Phosphorus 2.3 L (2.5-4.5) mg/dL Magnesium (1.6-2.3) mg/dL Alkaline Phosphatase (38-126) U/L Total Protein 6.2 L (6.3-8.2) g/dL Crossmatch 11/10/16 11/10/16 11/10/16 Range/Units 21:00 22:03 23:04 RBC (4.30-5.90) m/uL Hgb (13.0-17.5) gm/dL Hct (39.0-53.0) % Lymphocytes # (1.0-4.8) k/uL ABG pH (7.35-7.45) ABG pCO2 (35-45) mmHg ABG pO2 (83-108) mmHg ABG HCO3 (21-25) mmol/L ABG Total CO2 (19-24) mmol/L ABG O2 Saturation (94-97) % Sodium (137-145) mmol/L Potassium (3.5-5.1) mmol/L Carbon Dioxide (22-30) mmol/L BUN (9-20) mg/dL Glucose (74-99) mg/dL POC Glucose (mg/dL) 192 H 206 H 209 H (75-99) mg/dL Calcium (8.4-10.2) mg/dL Phosphorus (2.5-4.5) mg/dL Magnesium (1.6-2.3) mg/dL Alkaline Phosphatase (38-126) U/L Total Protein (6.3-8.2) g/dL Crossmatch 11/10/16 11/11/16 11/11/16 Range/Units 23:58 01:31 02:34 RBC (4.30-5.90) m/uL Hgb (13.0-17.5) gm/dL Hct (39.0-53.0) % Lymphocytes # (1.0-4.8) k/uL ABG pH (7.35-7.45) ABG pCO2 (35-45) mmHg ABG pO2 (83-108) mmHg ABG HCO3 (21-25) mmol/L ABG Total CO2 (19-24) mmol/L ABG O2 Saturation (94-97) % Sodium (137-145) mmol/L Potassium (3.5-5.1) mmol/L Carbon Dioxide (22-30) mmol/L BUN (9-20) mg/dL Glucose (74-99) mg/dL POC Glucose (mg/dL) 207 H 192 H 182 H (75-99) mg/dL Calcium (8.4-10.2) mg/dL Phosphorus (2.5-4.5) mg/dL Magnesium (1.6-2.3) mg/dL Alkaline Phosphatase (38-126) U/L Total Protein (6.3-8.2) g/dL Crossmatch 11/11/16 11/11/16 11/11/16 Range/Units 03:48 04:30 04:30 RBC 3.12 L (4.30-5.90) m/uL Hgb 10.4 L (13.0-17.5) gm/dL Hct 30.3 L (39.0-53.0) % Lymphocytes # 0.4 L (1.0-4.8) k/uL ABG pH (7.35-7.45) ABG pCO2 (35-45) mmHg ABG pO2 (83-108) mmHg ABG HCO3 (21-25) mmol/L ABG Total CO2 (19-24) mmol/L ABG O2 Saturation (94-97) % Sodium (137-145) mmol/L Potassium 3.4 L (3.5-5.1) mmol/L Carbon Dioxide 19 L (22-30) mmol/L BUN 8 L (9-20) mg/dL Glucose 162 H (74-99) mg/dL POC Glucose (mg/dL) 175 H (75-99) mg/dL Calcium (8.4-10.2) mg/dL Phosphorus 1.5 L (2.5-4.5) mg/dL Magnesium 2.5 H (1.6-2.3) mg/dL Alkaline Phosphatase 33 L (38-126) U/L Total Protein 6.1 L (6.3-8.2) g/dL Crossmatch 11/11/16 11/11/16 11/11/16 Range/Units 04:43 05:47 06:49 RBC (4.30-5.90) m/uL Hgb (13.0-17.5) gm/dL Hct (39.0-53.0) % Lymphocytes # (1.0-4.8) k/uL ABG pH (7.35-7.45) ABG pCO2 (35-45) mmHg ABG pO2 (83-108) mmHg ABG HCO3 (21-25) mmol/L ABG Total CO2 (19-24) mmol/L ABG O2 Saturation (94-97) % Sodium (137-145) mmol/L Potassium (3.5-5.1) mmol/L Carbon Dioxide (22-30) mmol/L BUN (9-20) mg/dL Glucose (74-99) mg/dL POC Glucose (mg/dL) 165 H 172 H 170 H (75-99) mg/dL Calcium (8.4-10.2) mg/dL Phosphorus (2.5-4.5) mg/dL Magnesium (1.6-2.3) mg/dL Alkaline Phosphatase (38-126) U/L Total Protein (6.3-8.2) g/dL Crossmatch 11/11/16 11/11/16 11/11/16 Range/Units 07:58 09:00 09:03 RBC (4.30-5.90) m/uL Hgb (13.0-17.5) gm/dL Hct (39.0-53.0) % Lymphocytes # (1.0-4.8) k/uL ABG pH (7.35-7.45) ABG pCO2 (35-45) mmHg ABG pO2 76 L (83-108) mmHg ABG HCO3 19 L (21-25) mmol/L ABG Total CO2 (19-24) mmol/L ABG O2 Saturation (94-97) % Sodium (137-145) mmol/L Potassium (3.5-5.1) mmol/L Carbon Dioxide (22-30) mmol/L BUN (9-20) mg/dL Glucose (74-99) mg/dL POC Glucose (mg/dL) 163 H 170 H (75-99) mg/dL Calcium (8.4-10.2) mg/dL Phosphorus (2.5-4.5) mg/dL Magnesium (1.6-2.3) mg/dL Alkaline Phosphatase (38-126) U/L Total Protein (6.3-8.2) g/dL Crossmatch 11/11/16 11/11/16 11/11/16 Range/Units 10:10 11:08 11:13 RBC (4.30-5.90) m/uL Hgb (13.0-17.5) gm/dL Hct (39.0-53.0) % Lymphocytes # (1.0-4.8) k/uL ABG pH (7.35-7.45) ABG pCO2 33 L (35-45) mmHg ABG pO2 63 L (83-108) mmHg ABG HCO3 20 L (21-25) mmol/L ABG Total CO2 (19-24) mmol/L ABG O2 Saturation 92.0 L (94-97) % Sodium (137-145) mmol/L Potassium (3.5-5.1) mmol/L Carbon Dioxide (22-30) mmol/L BUN (9-20) mg/dL Glucose (74-99) mg/dL POC Glucose (mg/dL) 159 H 149 H (75-99) mg/dL Calcium (8.4-10.2) mg/dL Phosphorus (2.5-4.5) mg/dL Magnesium (1.6-2.3) mg/dL Alkaline Phosphatase (38-126) U/L Total Protein (6.3-8.2) g/dL Crossmatch 11/11/16 Range/Units 13:02 RBC (4.30-5.90) m/uL Hgb (13.0-17.5) gm/dL Hct (39.0-53.0) % Lymphocytes # (1.0-4.8) k/uL ABG pH (7.35-7.45) ABG pCO2 (35-45) mmHg ABG pO2 (83-108) mmHg ABG HCO3 (21-25) mmol/L ABG Total CO2 (19-24) mmol/L ABG O2 Saturation (94-97) % Sodium (137-145) mmol/L Potassium (3.5-5.1) mmol/L Carbon Dioxide (22-30) mmol/L BUN (9-20) mg/dL Glucose (74-99) mg/dL POC Glucose (mg/dL) 127 H (75-99) mg/dL Calcium (8.4-10.2) mg/dL Phosphorus (2.5-4.5) mg/dL Magnesium (1.6-2.3) mg/dL Alkaline Phosphatase (38-126) U/L Total Protein (6.3-8.2) g/dL Crossmatch Microbiology - Last 24 Hours (Table) 11/10/16 16:40 Gram Stain - Preliminary Lung Aspirate - Right Bronchial Washings Culture - Preliminary 11/10/16 16:40 Fungal Culture - Preliminary Lung - Right 11/10/16 16:40 Acid Fast Bacilli Culture - Preliminary Lung - Right Assessment and Plan Plan: impression: 1 status post CABG, postoperative day # 1. 2 history of nicotine dependence and suspect some component of COPD 3 history of documented coronary artery disease based on a recent cardiac catheterization 4 history ofpercutaneous revascularization of the proximal right coronary artery in 2000 5history of hypertension 6 history of myocardial infarction 7 status post bronchoscopy and bronchoalveolar lavage of the right upper lobe read lobe and right lower lobe upon arrival to the ICU. From the OR postoperative day #1 8 failure to wean on his postoperative day #1 mostly because of his underlying COPD and marginal pO2 when patient was given a weaning trial with pressure support of 8 and CPAP, his pO2 was only 63 with FiO2 of 50% and PEEP of 5. Hence the patient will be placed back on PEEP of 8 and FiO2 of 50%. We'll continue bronchodilators, and clearly not quite ready for extubation today. Recommendation: Patient will be kept on mechanical ventilation today, continue bronchodilators, steroids, keep the patient on relatively high PEEP, and we will use a relatively higher tidal volumes. Based on overall clinical improvement and improvement in his O2 saturation, may consider another weaning trial and extubation today. If not we'll address this tomorrow in a.m. Critical care time is 32 minutes Time with Patient: Greater than 30
[2016-11-11] MEDS ORDERED: MAGNESIUM HYDROXIDE 2,400 MG/10 ML CUP PO PRN (13:39)
[2016-11-11] MEDS ORDERED: HYDROcodone/APAP 5-325MG 1 EACH TAB PO PRN (13:39)
[2016-11-11] MEDS ORDERED: IPRATROPIUM-ALBUTEROL 3 ML NEB INHALATION PRN (13:40)
[2016-11-11 14:03] LABS: Glucose,Whole Blood 124 mg/dL (75-99)
[2016-11-11] MEDS: LACTATED RINGERS 1,000 ML IV SCH (14:08)
[2016-11-11 15:17] LABS: Glucose,Whole Blood 141 mg/dL (75-99)
[2016-11-11] MEDS ORDERED: Potassium Replacement Protocol 1 EACH MISC MISCELLANE PRN (15:52)
[2016-11-11] MEDS ORDERED: POTASSIUM CHLORIDE 20 MEQ in WATER FOR INJECTION 1 100ML.BAG IVPB ONE (15:52)
[2016-11-11 15:57] LABS: Glucose,Whole Blood 134 mg/dL (75-99)
[2016-11-11 17:19] LABS: Glucose,Whole Blood 123 mg/dL (75-99)
[2016-11-11 18:18] LABS: Glucose,Whole Blood 127 mg/dL (75-99)
[2016-11-11] MEDS: INSULIN REGULAR 100 UNIT in SODIUM CHLORIDE 0.9% 100 ML IV SCH (19:50)
[2016-11-11 20:30] LABS: Glucose,Whole Blood 131 mg/dL (75-99)
[2016-11-11] MEDS: SENNOSIDES-DOCUSATE SODIUM 1 EACH TAB PO SCH (21:53)
[2016-11-11 22:23] LABS: Glucose,Whole Blood 128 mg/dL (75-99)
[2016-11-12] MEDS: methylPREDNISolone SOD SUCCI 40 MG/ML 1 ML VIAL IV SCH ×3 (00:09→16:16)
[2016-11-12] MEDS: HEPARIN SODIUM,PORCINE 5,000 UNIT/ML 1 ML VIAL SQ SCH ×3 (00:09→16:16)
[2016-11-12] MEDS: PROPOFOL 500 MG in EMPTY BAG 1 BAG IV SCH ×12 (00:10→23:22)
[2016-11-12] MEDS: MORPHINE SULFATE 2 MG/ML SYRINGE IVP PRN ×3 (00:23→14:22)
[2016-11-12 00:37] LABS: Glucose,Whole Blood 126 mg/dL (75-99)
[2016-11-12] MEDS: IPRATROPIUM-ALBUTEROL 3 ML NEB INHALATION SCH ×6 (03:17→23:37)
[2016-11-12 03:28] LABS: Glucose,Whole Blood 121 mg/dL (75-99)
[2016-11-12 03:48] LABS: Basophils % (A) 0 %; CH 33.9; CHCM 35.7; Eosinophils % (A) 0 %; HCT 31.5 % (39.0-53.0); HGB 10.7 gm/dL (13.0-17.5); Luc # (Auto) 0.09; Luc % (Auto) 1; Lymphocytes # (A) 0.9 k/uL (1.0-4.8); Lymphocytes % (A) 7 %; MCH 32.3 pg (25.0-35.0); MCHC 33.9 g/dL (31.0-37.0); MCV 95.3 fL (80.0-100.0); Mean Platelet Volume 7.6; Monocytes # (A) 0.5 k/uL (0-1.0); Monocytes % (A) 4 %; Neutrophils # (A) 12.5 k/uL (1.3-7.7); Neutrophils % (A) 89 %; RBC 3.31 m/uL (4.30-5.90); RDW 13.6 % (11.5-15.5); WBC (Perox) 14.51
[2016-11-12 03:52] LABS: Prothrombin Time 10.6 sec (9.0-12.0)
[2016-11-12 03:58] LABS: Ionized Calcium 4.7 mg/dL (4.5-5.3)
[2016-11-12 04:07] LABS: ALT 24 U/L (21-72); AST 19 U/L (17-59); Alkaline Phosphatase 39 U/L (38-126); Anion Gap 15 mmol/L; Blood Urea Nitrogen 8 mg/dL (9-20); Calcium 8.8 mg/dL (8.4-10.2); Carbon Dioxide 22 mmol/L (22-30); Chloride 105 mmol/L (98-107); Glucose 121 mg/dL (74-99); Magnesium 2.3 mg/dL (1.6-2.3); Non-African American GFR(MDRD) >60 (>60 ml/min/1.73 sqM); Phosphorous 2.4 mg/dL (2.5-4.5); Potassium 3.8 mmol/L (3.5-5.1); Sodium 142 mmol/L (137-145); Total Bilirubin 0.3 mg/dL (0.2-1.3); Total Protein 5.9 g/dL (6.3-8.2)
[2016-11-12] MEDS ORDERED: SODIUM PHOSPHATE 10 MMOL in SODIUM CHLORIDE 0.9% 250 ML IVPB ONE (04:29)
[2016-11-12] MEDS ORDERED: POTASSIUM CHLORIDE ORAL LIQUID 40 MEQ/30 ML CUP NG-TUBE SCH (05:00)
[2016-11-12 05:33] LABS: Glucose,Whole Blood 147 mg/dL (75-99)
[2016-11-12] MEDS: LORazepam 2 MG/ML SYRINGE IV STA ×2 (07:00→07:29)
--- NOTE | 2016-11-12 07:50 | XR ---
EXAMINATION TYPE: XR chest 1V portable DATE OF EXAM: 11/12/2016 6:56 AM COMPARISON: Prior chest x-ray November 11 2016 HISTORY: Status post cardiac surgery, intubated TECHNIQUE: Single frontal view of the chest is obtained. FINDINGS: Endotracheal tube, NG tube are overlying appropriate positions, bilateral chest tubes are stable. No sizable pneumothorax or pleural effusion. Patient is post median sternotomy and the heart is enlarged. There are overlying cardiac leads. Lung volumes are somewhat low. Patchy basilar atelect atic changes are present bilaterally. IMPRESSION: Similar findings. Basilar atelectasis and cardiomegaly. Postop findings.
[2016-11-12] MEDS: BUDESONIDE 1 MG/2 ML NEBU INHALATION SCH ×2 (07:52→19:13)
[2016-11-12 08:05] LABS: Glucose,Whole Blood 146 mg/dL (75-99)
[2016-11-12] MEDS: ASPIRIN 325 MG TAB PO SCH (09:33)
[2016-11-12] MEDS: ATORVASTATIN 40 MG TAB PO SCH (09:33)
[2016-11-12] MEDS: CLOPIDOGREL 75 MG TAB PO SCH (09:33)
[2016-11-12] MEDS: METOPROLOL TARTRATE 12.5 MG TAB PO SCH ×2 (09:33→23:14)
[2016-11-12] MEDS: THIAMINE 100 MG TAB PO SCH ×2 (09:34→21:53)
[2016-11-12] MEDS: PANTOPRAZOLE 40 MG/10 ML VIAL IVP SCH (09:34)
[2016-11-12] MEDS: LORazepam 2 MG/ML SYRINGE IV PRN ×3 (09:47→15:43)
[2016-11-12 09:55] LABS: Glucose,Whole Blood 154 mg/dL (75-99)
[2016-11-12 10:29] LABS: ABG HCO3 19 mmol/L (21-25); ABG PCO2 33 mmHg (35-45); ABG PH 7.37 (7.35-7.45); ABG PO2 89 mmHg (83-108); ABG TCO2 20 mmol/L (19-24)
--- NOTE | 2016-11-12 11:29 | P.PN ---
Subjective Principal diagnosis: Coronary artery disease, status post prior stenting to his right coronary artery. Preserved left ventricular function. Hyperlipidemia. Hypertension. ETOH abuse. POD #2 total arterial non-aortic patch off-pump double coronary artery bypass grafting using in situ skeletonized right internal mammary artery to the left anterior descending artery across the anterior midline in situ totally skeletonized left internal mammary artery to the first obtuse marginal artery. Intraoperative transesophageal echocardiogram and epi-aortic scanning. Intraoperative graft flow measurements using the [employer] system Patient currently sedated on mechanical ventilation. Issues this morning with alcohol withdrawal requiring increased sedation. Objective - Vital Signs Vital signs: Vital Signs Temp 97.5 F L 11/12/16 09:00 Pulse 93 11/12/16 10:00 Resp 19 11/12/16 10:00 BP 109/57 11/12/16 10:00 Pulse Ox 95 11/12/16 10:00 Intake & Output 11/11/16 11/12/16 11/12/16 18:59 06:59 18:59 Intake Total 1692.116 711.748 196.875 Output Total 1899 1422 185 Balance -206.884 -710.252 11.875 Weight 99.8 kg 98.3 kg Intake: Intake, IV Titration 1512.116 711.748 196.875 Amount ACETAMINOPHEN IV (For NPO 200 ) 1,000 mg In Empty Bag 1 bag @ 400 mls/hr IVPB Q6HR [facility] Rx#:[id number] Clevidipine Butyrate 25 7.266 mg In Empty Bag 1 bag @ 1 MG/HR 2 mls/hr IV .Q24H [facility] Rx#:[id number] Insulin Regular 100 unit 60.684 31.798 In Sodium Chloride 0.9% 100 ml @ Per Protocol IV .Q0M [facility] Rx#:[id number] Lactated Ringers 1,000 ml 495 480 80 @ 20 mls/hr IV .Q24H [facility] Rx#:[id number] Nitroglycerin-D5w Pmx 50 17.600 mg In Dextrose/Water 1 250ml.bag @ 5 MCG/MIN 1.5 mls/hr IV .Q24H [facility] Rx#: [id number] Potassium Chloride 10 meq 100 In Water For Injection 1 100ml.bag @ 100 mls/hr IVPB Q1H [facility] Rx#: [id number] Potassium Chloride 20 meq 100 In Water For Injection 1 100ml.bag @ 50 mls/hr IVPB ONCE [facility] Rx#: [id number] Propofol 500 mg In Empty 181.566 199.95 116.875 Bag 1 bag @ Titrate IV . Q0M [facility] Rx#:[id number] Sodium Phosphate 10 mmol 250 In Sodium Chloride 0.9% 250 ml @ 125 mls/hr IVPB Q2H [facility] Rx#:[id number] ceFAZolin 2 gm In Sodium 100 Chloride 0.9% 100 ml @ 100 mls/hr IVPB Q8HR [facility] Rx#:[id number] Other 180 Output: Chest Tube Drainage 224 172 10 Left Lateral Chest 64 32 0 Mediastinal 20 110 0 Right Lateral Chest 140 30 10 Urine 1675 1250 175 Other: Voiding Method Indwelling Catheter Indwelling Catheter Indwelling Catheter # Bowel Movements 0 0 ABP, PAP, CO, CI - Last Documented Arterial Blood Pressure 119/54 Pulmonary Artery Pressure 46/23 Cardiac Output 6.8 Cardiac Index 3.3 - Constitutional General appearance: Present: no acute distress - Respiratory Details: Lung sounds diminished bilaterally. Resp even/non-labored on mechanical ventilation. Current settings: AC TV 500, FiO2 50%, RR 20, PEEP 8. Left pleural CT with 24 ml serosanguinous drainage in the last 8 hours, 50 ml in the last [address] with 30 ml serosanguinous drainage in the last 8 hours, 40 ml in the last 24 hours. Mediastinal chest tube with 40 ml in the last 8 hours, 250 ml in the last 24 hours. No airleak present. - Cardiovascular Details: S1/S2 present. Reg rate/rhythm, NSR on telemetry. Sternum stable. TEDs/SCDs present. - Gastrointestinal Gastrointestinal Comment(s): Abd soft/NT/ND. Hypoactive BS x 4 quad. OGT to LIS. - Genitourinary Genitourinary Comment(s): Tay present draining clear, yellow urine. Output 100-200 ml/hr. - Integumentary Integumentary Comment(s): Ant chest incision covered with dry/intact silver dressing. - Psychiatric Psychiatric Comment(s): Sedated on ventilator. Increased sedation required 2/2 agitation. - Allied health notes Allied health notes reviewed: nursing - Labs CBC & Chem 7: 11/12/16 03:30 11/12/16 03:30 Labs: Abnormal Lab Results - Last 24 Hours (Table) 11/11/16 11/11/16 11/11/16 Range/Units 11:13 13:02 14:02 WBC (3.8-10.6) k/uL RBC (4.30-5.90) m/uL Hgb (13.0-17.5) gm/dL Hct (39.0-53.0) % Neutrophils # (1.3-7.7) k/uL Lymphocytes # (1.0-4.8) k/uL ABG pCO2 33 L (35-45) mmHg ABG pO2 63 L (83-108) mmHg ABG HCO3 20 L (21-25) mmol/L ABG O2 Saturation 92.0 L (94-97) % BUN (9-20) mg/dL Glucose (74-99) mg/dL POC Glucose (mg/dL) 127 H 124 H (75-99) mg/dL Phosphorus (2.5-4.5) mg/dL Total Protein (6.3-8.2) g/dL 11/11/16 11/11/16 11/11/16 Range/Units 15:16 15:56 17:18 WBC (3.8-10.6) k/uL RBC (4.30-5.90) m/uL Hgb (13.0-17.5) gm/dL Hct (39.0-53.0) % Neutrophils # (1.3-7.7) k/uL Lymphocytes # (1.0-4.8) k/uL ABG pCO2 (35-45) mmHg ABG pO2 (83-108) mmHg ABG HCO3 (21-25) mmol/L ABG O2 Saturation (94-97) % BUN (9-20) mg/dL Glucose (74-99) mg/dL POC Glucose (mg/dL) 141 H 134 H 123 H (75-99) mg/dL Phosphorus (2.5-4.5) mg/dL Total Protein (6.3-8.2) g/dL 11/11/16 11/11/16 11/11/16 Range/Units 18:16 20:28 22:20 WBC (3.8-10.6) k/uL RBC (4.30-5.90) m/uL Hgb (13.0-17.5) gm/dL Hct (39.0-53.0) % Neutrophils # (1.3-7.7) k/uL Lymphocytes # (1.0-4.8) k/uL ABG pCO2 (35-45) mmHg ABG pO2 (83-108) mmHg ABG HCO3 (21-25) mmol/L ABG O2 Saturation (94-97) % BUN (9-20) mg/dL Glucose (74-99) mg/dL POC Glucose (mg/dL) 127 H 131 H 128 H (75-99) mg/dL Phosphorus (2.5-4.5) mg/dL Total Protein (6.3-8.2) g/dL 11/12/16 11/12/16 11/12/16 Range/Units 00:36 03:27 03:30 WBC (3.8-10.6) k/uL RBC (4.30-5.90) m/uL Hgb (13.0-17.5) gm/dL Hct (39.0-53.0) % Neutrophils # (1.3-7.7) k/uL Lymphocytes # (1.0-4.8) k/uL ABG pCO2 (35-45) mmHg ABG pO2 (83-108) mmHg ABG HCO3 (21-25) mmol/L ABG O2 Saturation (94-97) % BUN 8 L (9-20) mg/dL Glucose 121 H (74-99) mg/dL POC Glucose (mg/dL) 126 H 121 H (75-99) mg/dL Phosphorus 2.4 L (2.5-4.5) mg/dL Total Protein 5.9 L (6.3-8.2) g/dL 11/12/16 11/12/16 11/12/16 Range/Units 03:30 05:31 08:04 WBC 14.0 H (3.8-10.6) k/uL RBC 3.31 L (4.30-5.90) m/uL Hgb 10.7 L (13.0-17.5) gm/dL Hct 31.5 L (39.0-53.0) % Neutrophils # 12.5 H (1.3-7.7) k/uL Lymphocytes # 0.9 L (1.0-4.8) k/uL ABG pCO2 (35-45) mmHg ABG pO2 (83-108) mmHg ABG HCO3 (21-25) mmol/L ABG O2 Saturation (94-97) % BUN (9-20) mg/dL Glucose (74-99) mg/dL POC Glucose (mg/dL) 147 H 146 H (75-99) mg/dL Phosphorus (2.5-4.5) mg/dL Total Protein (6.3-8.2) g/dL 11/12/16 11/12/16 Range/Units 09:26 09:54 WBC (3.8-10.6) k/uL RBC (4.30-5.90) m/uL Hgb (13.0-17.5) gm/dL Hct (39.0-53.0) % Neutrophils # (1.3-7.7) k/uL Lymphocytes # (1.0-4.8) k/uL ABG pCO2 33 L (35-45) mmHg ABG pO2 (83-108) mmHg ABG HCO3 19 L (21-25) mmol/L ABG O2 Saturation (94-97) % BUN (9-20) mg/dL Glucose (74-99) mg/dL POC Glucose (mg/dL) 154 H (75-99) mg/dL Phosphorus (2.5-4.5) mg/dL Total Protein (6.3-8.2) g/dL Microbiology - Last 24 Hours (Table) 11/10/16 16:40 Gram Stain - Final Lung Aspirate - Right Bronchial Washings Culture - Final 11/10/16 16:40 Acid Fast Bacilli Smear - Final Lung - Right Acid Fast Bacilli Culture - Preliminary - Imaging and Cardiology Chest x-ray: report reviewed, image reviewed Assessment and Plan (1) Status post coronary artery bypass graft Status: Acute (2) Coronary artery disease Status: Acute (3) Family history of heart disease Status: Acute (4) History of PTCA Status: Acute (5) Hyperlipidemia Status: Acute (6) Hypertension Status: Acute (7) Nicotine dependence, chewing tobacco, uncomplicated Status: Acute Plan: 1. Continue aspirin, Lipitor, Plavix, heparin, Lopressor. 2. Ventilator management per pulmonology, wean O2 as tolerated. 3. Insulin drip/diabetic management per primary care service. 4. [facility] protocol added for alcohol withdrawal. 5. Potassium replacement per protocol. 6. Will DC mediastinal, right pleural CT today. 7. Daily labs, chest x-rays. 8. GI/DVT prophylaxis. 9. More recommendations as patient progresses. Time with Patient: Greater than 30
--- NOTE | 2016-11-12 11:49 | P.PN ---
Subjective Principal diagnosis: Status post CABG, postoperative day #2 This is a 61-year-old white male status post CABG, postoperative day #1, total arterial non-aortic patch off pump double coronary artery bypass grafting using in situ skeletonized right internal mammary artery to the left anterior descending across the anterior midline in situ totally skeletonized left internal mammary artery to the first obtuse marginal artery. Postoperatively patient was on mechanical ventilation, and upon arrival to the ICU he was found to have opacified right lung, he required bronchoscopy and extraction of mucous plugs mostly in the right upper lobe and right middle lobe. Remained on mechanical ventilation overnight, however this morning his gases are showing marginal oxygenation, his pO2 is only 63 on 50% and PEEP of 5. Patient was given a weaning trial with a pressure support of 8 and CPAP, ABG in half an hour is definitely poor showing very poor oxygenation, and his O2 saturation was in the 91% range. PO2 was only 63, hence I decided not to pursue any further weaning and extubation on this patient until his oxygenation improves better. Gram stain and cultures from the right upper lobe are pending. In the meantime the patient is receiving bronchodilators for underlying COPD, and he is also on steroids for significant wheezing noted yesterday after bronchoscopy. Patient remains on DuoNeb updrafts 4 times a day and when necessary. Reevaluated today on 11/12/2016, patient is status post CABG, postoperative day # 2 remains intubated and on mechanical ventilation. Yesterday patient could not be weaned and extubated mostly because of his marginal oxygenation. His pO2 was only 63 on 50% FiO2 and pressure support of 8 and CPAP. Hence decided not to extubate the patient, today the patient is having what seems to be a picture of alcohol withdrawal as soon as the propofol was weaned off. Hence we had to go back on the propofol, and the patient will be placed on the protocol. For alcohol withdrawal. ABG this morning seems to be a bit better, pO2 is 89 pCO2 is 33 pH of 7.37. Patient is slightly metabolically acidotic. Bicarb is 19. Hemoglobin is 10.7 WBC count is 14.0. Chest x-ray showed minimal areas of bands of atelectasis at the bases, but no further areas of collapse noted in the right upper lobe and right the lobe as seen 2 days ago. Objective - Vital Signs Vital signs: Vital Signs Temp 97.5 F L 11/12/16 09:00 Pulse 74 11/12/16 11:30 Resp 20 11/12/16 11:00 BP 97/49 11/12/16 11:00 Pulse Ox 94 L 11/12/16 11:00 Intake & Output 11/11/16 11/12/16 11/12/16 18:59 06:59 18:59 Intake Total 1692.116 711.748 216.875 Output Total 1899 1422 215 Balance -206.884 -710.252 1.875 Weight 99.8 kg 98.3 kg Intake: Intake, IV Titration 1512.116 711.748 216.875 Amount ACETAMINOPHEN IV (For NPO 200 ) 1,000 mg In Empty Bag 1 bag @ 400 mls/hr IVPB Q6HR [facility] Rx#:[id number] Clevidipine Butyrate 25 7.266 mg In Empty Bag 1 bag @ 1 MG/HR 2 mls/hr IV .Q24H [facility] Rx#:[id number] Insulin Regular 100 unit 60.684 31.798 In Sodium Chloride 0.9% 100 ml @ Per Protocol IV .Q0M [facility] Rx#:[id number] Lactated Ringers 1,000 ml 495 480 100 @ 20 mls/hr IV .Q24H [facility] Rx#:[id number] Nitroglycerin-D5w Pmx 50 17.600 mg In Dextrose/Water 1 250ml.bag @ 5 MCG/MIN 1.5 mls/hr IV .Q24H [facility] Rx#: [id number] Potassium Chloride 10 meq 100 In Water For Injection 1 100ml.bag @ 100 mls/hr IVPB Q1H [facility] Rx#: [id number] Potassium Chloride 20 meq 100 In Water For Injection 1 100ml.bag @ 50 mls/hr IVPB ONCE ONE Rx#: [id number] Propofol 500 mg In Empty 181.566 199.95 116.875 Bag 1 bag @ Titrate IV . Q0M [facility] Rx#:[id number] Sodium Phosphate 10 mmol 250 In Sodium Chloride 0.9% 250 ml @ 125 mls/hr IVPB Q2H [facility] Rx#:[id number] ceFAZolin 2 gm In Sodium 100 Chloride 0.9% 100 ml @ 100 mls/hr IVPB Q8HR [facility] Rx#:[id number] Other 180 Output: Chest Tube Drainage 224 172 10 Left Lateral Chest 64 32 0 Mediastinal 20 110 0 Right Lateral Chest 140 30 10 Urine 1675 1250 205 Other: Voiding Method Indwelling Catheter Indwelling Catheter Indwelling Catheter # Bowel Movements 0 0 ABP, PAP, CO, CI - Last Documented Arterial Blood Pressure 100/47 Pulmonary Artery Pressure 46/23 Cardiac Output 6.8 Cardiac Index 3.3 - Exam Physical Exam: Revealed a 61-year-old white male on mechanical ventilation, in no distress. HEENT:[Neck is supple.] [No neck masses.] [No thyromegaly.] [No JVD.] endotracheal tube was noted to be intact. Chest: [diminished breath sounds on the right side with slight expiratory rhonchi and wheezes noted bilaterally.] Cardiac Exam: [Normal S1 and S2, no S3 gallop, 2/6 systolic murmur throughout the precordium, positive pericardial rub] Abdomen: [Soft, nontender, no megaly, no rebound, no guarding, normal bowel sounds.] Extremities: [No clubbing, no edema, no cyanosis.] Neurological Exam: [Cannot be assessed today because patient is on a relatively high dose of propofol, and this was given because of clinical picture of alcohol withdrawal. - Labs CBC & Chem 7: 11/12/16 03:30 11/12/16 03:30 Labs: Abnormal Lab Results - Last 24 Hours (Table) 11/11/16 11/11/16 11/11/16 Range/Units 13:02 14:02 15:16 WBC (3.8-10.6) k/uL RBC (4.30-5.90) m/uL Hgb (13.0-17.5) gm/dL Hct (39.0-53.0) % Neutrophils # (1.3-7.7) k/uL Lymphocytes # (1.0-4.8) k/uL ABG pCO2 (35-45) mmHg ABG HCO3 (21-25) mmol/L BUN (9-20) mg/dL Glucose (74-99) mg/dL POC Glucose (mg/dL) 127 H 124 H 141 H (75-99) mg/dL Phosphorus (2.5-4.5) mg/dL Total Protein (6.3-8.2) g/dL 11/11/16 11/11/16 11/11/16 Range/Units 15:56 17:18 18:16 WBC (3.8-10.6) k/uL RBC (4.30-5.90) m/uL Hgb (13.0-17.5) gm/dL Hct (39.0-53.0) % Neutrophils # (1.3-7.7) k/uL Lymphocytes # (1.0-4.8) k/uL ABG pCO2 (35-45) mmHg ABG HCO3 (21-25) mmol/L BUN (9-20) mg/dL Glucose (74-99) mg/dL POC Glucose (mg/dL) 134 H 123 H 127 H (75-99) mg/dL Phosphorus (2.5-4.5) mg/dL Total Protein (6.3-8.2) g/dL 11/11/16 11/11/16 11/12/16 Range/Units 20:28 22:20 00:36 WBC (3.8-10.6) k/uL RBC (4.30-5.90) m/uL Hgb (13.0-17.5) gm/dL Hct (39.0-53.0) % Neutrophils # (1.3-7.7) k/uL Lymphocytes # (1.0-4.8) k/uL ABG pCO2 (35-45) mmHg ABG HCO3 (21-25) mmol/L BUN (9-20) mg/dL Glucose (74-99) mg/dL POC Glucose (mg/dL) 131 H 128 H 126 H (75-99) mg/dL Phosphorus (2.5-4.5) mg/dL Total Protein (6.3-8.2) g/dL 11/12/16 11/12/16 11/12/16 Range/Units 03:27 03:30 03:30 WBC 14.0 H (3.8-10.6) k/uL RBC 3.31 L (4.30-5.90) m/uL Hgb 10.7 L (13.0-17.5) gm/dL Hct 31.5 L (39.0-53.0) % Neutrophils # 12.5 H (1.3-7.7) k/uL Lymphocytes # 0.9 L (1.0-4.8) k/uL ABG pCO2 (35-45) mmHg ABG HCO3 (21-25) mmol/L BUN 8 L (9-20) mg/dL Glucose 121 H (74-99) mg/dL POC Glucose (mg/dL) 121 H (75-99) mg/dL Phosphorus 2.4 L (2.5-4.5) mg/dL Total Protein 5.9 L (6.3-8.2) g/dL 11/12/16 11/12/16 11/12/16 Range/Units 05:31 08:04 09:26 WBC (3.8-10.6) k/uL RBC (4.30-5.90) m/uL Hgb (13.0-17.5) gm/dL Hct (39.0-53.0) % Neutrophils # (1.3-7.7) k/uL Lymphocytes # (1.0-4.8) k/uL ABG pCO2 33 L (35-45) mmHg ABG HCO3 19 L (21-25) mmol/L BUN (9-20) mg/dL Glucose (74-99) mg/dL POC Glucose (mg/dL) 147 H 146 H (75-99) mg/dL Phosphorus (2.5-4.5) mg/dL Total Protein (6.3-8.2) g/dL 11/12/16 Range/Units 09:54 WBC (3.8-10.6) k/uL RBC (4.30-5.90) m/uL Hgb (13.0-17.5) gm/dL Hct (39.0-53.0) % Neutrophils # (1.3-7.7) k/uL Lymphocytes # (1.0-4.8) k/uL ABG pCO2 (35-45) mmHg ABG HCO3 (21-25) mmol/L BUN (9-20) mg/dL Glucose (74-99) mg/dL POC Glucose (mg/dL) 154 H (75-99) mg/dL Phosphorus (2.5-4.5) mg/dL Total Protein (6.3-8.2) g/dL Microbiology - Last 24 Hours (Table) 11/10/16 16:40 Gram Stain - Final Lung Aspirate - Right Bronchial Washings Culture - Final 11/10/16 16:40 Acid Fast Bacilli Smear - Final Lung - Right Acid Fast Bacilli Culture - Preliminary Assessment and Plan Plan: impression: 1 status post CABG, postoperative day # 2 2 history of nicotine dependence and suspect some component of COPD 3 history of documented coronary artery disease based on a recent cardiac catheterization 4 history ofpercutaneous revascularization of the proximal right coronary artery in 2000 5history of hypertension 6 history of myocardial infarction 7 status post bronchoscopy and bronchoalveolar lavage of the right upper lobe read lobe and right lower lobe upon arrival to the ICU. From the OR postoperative day #1 8 failure to wean on his postoperative day #1 mostly because of his underlying COPD and marginal pO2 when patient was given a weaning trial with pressure support of 8 and CPAP, his pO2 was only 63 with FiO2 of 50% and PEEP of 5. Hence the patient will be placed back on PEEP of 8 and FiO2 of 50%. We'll continue bronchodilators, and clearly not quite ready for extubation today. 9 suspect acute alcohol withdrawal considering the patient is a heavy drinker, hence the patient will be placed on the protocol, and I will hold on weaning trials today. PEEP will be placed on 5, FiO2 will remain at 50%. Continue assist control mode of mechanical ventilation, and address nutritional support. Recommendation: Patient will be kept on mechanical ventilation today, continue bronchodilators, steroids, we will address weeding and possibly extubation in the next 24 hours. Critical care time is 34 minutes Time with Patient: Greater than 30
[2016-11-12 12:04] LABS: Glucose,Whole Blood 172 mg/dL (75-99)
[2016-11-12] MEDS: MULTIVITAMINS, THERA LIQUID 237 ML BOTTLE PO SCH (12:06)
--- NOTE | 2016-11-12 14:03 | P.PN ---
Subjective Patient remains is intubated following coronary artery bypass grafting day to yesterday his weaning failed He may have alcohol withdrawal Electrolytes are reviewed On examination he is afebrile 97.5F, pulse rate in the 70s blood pressure 97/ 49 mmHg Impression Coronary artery disease status post coronary artery bypass grafting History of smoking COPD PCI to the RCA in 2000 hypertension Likely alcohol withdrawal Suggest Continue cardiac medications and continue ICU care post CABG and regarding alcohol withdrawal Objective - Vital Signs Vital signs: Vital Signs Temp 97.5 F L 11/12/16 09:00 Pulse 74 11/12/16 13:00 Resp 20 11/12/16 13:00 BP 129/64 11/12/16 13:00 Pulse Ox 94 L 11/12/16 13:00 Intake & Output 11/11/16 11/12/16 11/12/16 18:59 06:59 18:59 Intake Total 1692.116 711.748 372.458 Output Total 1899 1422 315 Balance -206.884 -710.252 57.458 Weight 99.8 kg 98.3 kg Intake: Intake, IV Titration 1512.116 711.748 372.458 Amount ACETAMINOPHEN IV (For NPO 200 ) 1,000 mg In Empty Bag 1 bag @ 400 mls/hr IVPB Q6HR [facility] Rx#:[id number] Clevidipine Butyrate 25 7.266 mg In Empty Bag 1 bag @ 1 MG/HR 2 mls/hr IV .Q24H [facility] Rx#:[id number] Insulin Regular 100 unit 60.684 31.798 65.583 In Sodium Chloride 0.9% 100 ml @ Per Protocol IV .Q0M [facility] Rx#:[id number] Lactated Ringers 1,000 ml 495 480 140 @ 20 mls/hr IV .Q24H [facility] Rx#:[id number] Nitroglycerin-D5w Pmx 50 17.600 mg In Dextrose/Water 1 250ml.bag @ 5 MCG/MIN 1.5 mls/hr IV .Q24H [facility] Rx#: [id number] Potassium Chloride 10 meq 100 In Water For Injection 1 100ml.bag @ 100 mls/hr IVPB Q1H [facility] Rx#: [id number] Potassium Chloride 20 meq 100 In Water For Injection 1 100ml.bag @ 50 mls/hr IVPB ONCE ONE Rx#: [id number] Propofol 500 mg In Empty 181.566 199.95 166.875 Bag 1 bag @ Titrate IV . Q0M [facility] Rx#:[id number] Sodium Phosphate 10 mmol 250 In Sodium Chloride 0.9% 250 ml @ 125 mls/hr IVPB Q2H [facility] Rx#:[id number] ceFAZolin 2 gm In Sodium 100 Chloride 0.9% 100 ml @ 100 mls/hr IVPB Q8HR [facility] Rx#:[id number] Other 180 Output: Chest Tube Drainage 224 172 40 Left Lateral Chest 64 32 10 Mediastinal 20 110 20 Right Lateral Chest 140 30 10 Urine 1675 1250 275 Other: Voiding Method Indwelling Catheter Indwelling Catheter Indwelling Catheter # Bowel Movements 0 0 ABP, PAP, CO, CI - Last Documented Arterial Blood Pressure 122/51 Pulmonary Artery Pressure 46/23 Cardiac Output 6.8 Cardiac Index 3.3 - Labs CBC & Chem 7: 11/12/16 03:30 11/12/16 03:30 Labs: Abnormal Lab Results - Last 24 Hours (Table) 11/11/16 11/11/16 11/11/16 Range/Units 14:02 15:16 15:56 WBC (3.8-10.6) k/uL RBC (4.30-5.90) m/uL Hgb (13.0-17.5) gm/dL Hct (39.0-53.0) % Neutrophils # (1.3-7.7) k/uL Lymphocytes # (1.0-4.8) k/uL ABG pCO2 (35-45) mmHg ABG HCO3 (21-25) mmol/L BUN (9-20) mg/dL Glucose (74-99) mg/dL POC Glucose (mg/dL) 124 H 141 H 134 H (75-99) mg/dL Phosphorus (2.5-4.5) mg/dL Total Protein (6.3-8.2) g/dL 11/11/16 11/11/16 11/11/16 Range/Units 17:18 18:16 20:28 WBC (3.8-10.6) k/uL RBC (4.30-5.90) m/uL Hgb (13.0-17.5) gm/dL Hct (39.0-53.0) % Neutrophils # (1.3-7.7) k/uL Lymphocytes # (1.0-4.8) k/uL ABG pCO2 (35-45) mmHg ABG HCO3 (21-25) mmol/L BUN (9-20) mg/dL Glucose (74-99) mg/dL POC Glucose (mg/dL) 123 H 127 H 131 H (75-99) mg/dL Phosphorus (2.5-4.5) mg/dL Total Protein (6.3-8.2) g/dL 11/11/16 11/12/16 11/12/16 Range/Units 22:20 00:36 03:27 WBC (3.8-10.6) k/uL RBC (4.30-5.90) m/uL Hgb (13.0-17.5) gm/dL Hct (39.0-53.0) % Neutrophils # (1.3-7.7) k/uL Lymphocytes # (1.0-4.8) k/uL ABG pCO2 (35-45) mmHg ABG HCO3 (21-25) mmol/L BUN (9-20) mg/dL Glucose (74-99) mg/dL POC Glucose (mg/dL) 128 H 126 H 121 H (75-99) mg/dL Phosphorus (2.5-4.5) mg/dL Total Protein (6.3-8.2) g/dL 11/12/16 11/12/16 11/12/16 Range/Units 03:30 03:30 05:31 WBC 14.0 H (3.8-10.6) k/uL RBC 3.31 L (4.30-5.90) m/uL Hgb 10.7 L (13.0-17.5) gm/dL Hct 31.5 L (39.0-53.0) % Neutrophils # 12.5 H (1.3-7.7) k/uL Lymphocytes # 0.9 L (1.0-4.8) k/uL ABG pCO2 (35-45) mmHg ABG HCO3 (21-25) mmol/L BUN 8 L (9-20) mg/dL Glucose 121 H (74-99) mg/dL POC Glucose (mg/dL) 147 H (75-99) mg/dL Phosphorus 2.4 L (2.5-4.5) mg/dL Total Protein 5.9 L (6.3-8.2) g/dL 11/12/16 11/12/16 11/12/16 Range/Units 08:04 09:26 09:54 WBC (3.8-10.6) k/uL RBC (4.30-5.90) m/uL Hgb (13.0-17.5) gm/dL Hct (39.0-53.0) % Neutrophils # (1.3-7.7) k/uL Lymphocytes # (1.0-4.8) k/uL ABG pCO2 33 L (35-45) mmHg ABG HCO3 19 L (21-25) mmol/L BUN (9-20) mg/dL Glucose (74-99) mg/dL POC Glucose (mg/dL) 146 H 154 H (75-99) mg/dL Phosphorus (2.5-4.5) mg/dL Total Protein (6.3-8.2) g/dL 11/12/16 Range/Units 12:03 WBC (3.8-10.6) k/uL RBC (4.30-5.90) m/uL Hgb (13.0-17.5) gm/dL Hct (39.0-53.0) % Neutrophils # (1.3-7.7) k/uL Lymphocytes # (1.0-4.8) k/uL ABG pCO2 (35-45) mmHg ABG HCO3 (21-25) mmol/L BUN (9-20) mg/dL Glucose (74-99) mg/dL POC Glucose (mg/dL) 172 H (75-99) mg/dL Phosphorus (2.5-4.5) mg/dL Total Protein (6.3-8.2) g/dL Microbiology - Last 24 Hours (Table) 11/10/16 16:40 Gram Stain - Final Lung Aspirate - Right Bronchial Washings Culture - Final 11/10/16 16:40 Acid Fast Bacilli Smear - Final Lung - Right Acid Fast Bacilli Culture - Preliminary
[2016-11-12 14:17] LABS: Glucose,Whole Blood 140 mg/dL (75-99)
[2016-11-12] MEDS: CLEVIDIPINE BUTYRATE 25 MG in EMPTY BAG 1 BAG IV SCH (14:18)
[2016-11-12] MEDS: LACTATED RINGERS 1,000 ML IV SCH (14:19)
[2016-11-12] MEDS ORDERED: FUROSEMIDE 10 MG/ML 2 ML VIAL IV ONE (15:15)
[2016-11-12 16:20] LABS: Glucose,Whole Blood 128 mg/dL (75-99)
--- NOTE | 2016-11-12 17:30 | PN ---
Patient is status post CABG, intubated at this point of time and patient is postoperative day 2. Please refer to pulmonology dictation for further details, unable to extubate. Suspicion is patient was having alcohol withdrawals as well and patient is presently on propofol and when it is being tapered off patient probably can go into withdrawals, right upper and lower lobe collapse appears to have improved. Patient continues to have 3 chest tubes. REVIEW OF SYSTEMS: Unable to obtain due to his clinical condition. MEDICATIONS SIGNIFICANT ONES: Patient is on atorvastatin, Plavix, clevidipine, hydrocodone acetaminophen, propofol, Reglan, metoprolol, morphine and thiamine supplementation. The patient is also on CIWA protocol. PHYSICAL EXAMINATION: Temperature is a 97.5, pulse of 74, respiratory rate of 19, blood pressure is 119/54. GENERAL: Patient is intubated, sedated, on propofol ( ) minus 2. HEENT: Pupils are round and equally reacting to light. EOMI. No scleral icterus. No conjunctival pallor. Normocephalic, atraumatic. No pharyngeal erythema. No thyromegaly. CARDIOVASCULAR: S1 and S2 present. A 2/6 systolic murmur in the aortic area. LUNG EXAMINATION: Minimal expiratory wheezing was appreciated. ABDOMEN: Soft, nontender, nondistended, normoactive bowel sounds. No palpable organomegaly. MUSCULOSKELETAL: No joint swelling or deformity. EXTREMITIES: No cyanosis, clubbing, or pedal edema. NEUROLOGICAL: Sedated on propofol. SKIN: No rashes. Laboratory data was reviewed. No significant abnormality since admission. Patient continues to be on IV insulin. ASSESSMENT AND PLAN: 1. Respiratory failure, post coronary artery bypass grafting. Patient continues to be intubated. 2. Chronic obstructive pulmonary disease with minimal exacerbation. 3. Coronary artery disease, status post coronary artery bypass graft. 4. Hypertension. 5. Right upper and lower lobe collapse, status post bronchoscopy. 6. Possible alcohol withdrawal. Plan is to continue with present medications. Weaning trials today and tomorrow. Will ( ) with other consultants. Continue with IV insulin drip.
[2016-11-12 17:56] LABS: Glucose,Whole Blood 132 mg/dL (75-99)
[2016-11-12 18:07] LABS: Glucose,Whole Blood 135 mg/dL (75-99)
[2016-11-12 20:25] LABS: Glucose,Whole Blood 162 mg/dL (75-99)
[2016-11-12] MEDS: SENNOSIDES-DOCUSATE SODIUM 1 EACH TAB PO SCH (21:54)
[2016-11-12 21:58] LABS: Glucose,Whole Blood 164 mg/dL (75-99)
[2016-11-13 00:11] LABS: Glucose,Whole Blood 151 mg/dL (75-99)
[2016-11-13] MEDS: methylPREDNISolone SOD SUCCI 40 MG/ML 1 ML VIAL IV SCH ×4 (00:13→23:21)
[2016-11-13] MEDS: HEPARIN SODIUM,PORCINE 5,000 UNIT/ML 1 ML VIAL SQ SCH ×4 (00:13→23:21)
[2016-11-13] MEDS: PROPOFOL 500 MG in EMPTY BAG 1 BAG IV SCH ×13 (00:55→23:22)
[2016-11-13 02:20] LABS: Glucose,Whole Blood 155 mg/dL (75-99)
[2016-11-13] MEDS: MORPHINE SULFATE 2 MG/ML SYRINGE IVP PRN ×3 (02:27→22:53)
[2016-11-13] MEDS: IPRATROPIUM-ALBUTEROL 3 ML NEB INHALATION SCH ×6 (03:15→23:15)
[2016-11-13] MEDS: LORazepam 2 MG/ML SYRINGE IV PRN ×3 (03:20→08:54)
[2016-11-13 04:10] LABS: Glucose,Whole Blood 147 mg/dL (75-99)
[2016-11-13 05:29] LABS: Basophils % (A) 0 %; CH 33.6; CHCM 35.2; Eosinophils % (A) 0 %; HCT 30.2 % (39.0-53.0); HDW 2.61; HGB 10.8 gm/dL (13.0-17.5); Luc # (Auto) 0.08; Luc % (Auto) 1; Lymphocytes # (A) 0.9 k/uL (1.0-4.8); Lymphocytes % (A) 6 %; MCH 34.3 pg (25.0-35.0); MCHC 35.7 g/dL (31.0-37.0); MCV 96.1 fL (80.0-100.0); Mean Platelet Volume 6.8; Monocytes # (A) 0.6 k/uL (0-1.0); Monocytes % (A) 4 %; Neutrophils # (A) 13.1 k/uL (1.3-7.7); Neutrophils % (A) 89 %; RBC 3.14 m/uL (4.30-5.90); WBC 14.7 k/uL (3.8-10.6); WBC (Perox) 15.16
[2016-11-13 05:36] LABS: Ionized Calcium 4.8 mg/dL (4.5-5.3)
[2016-11-13 05:49] LABS: ALT 30 U/L (21-72); AST 22 U/L (17-59); Alkaline Phosphatase 38 U/L (38-126); Anion Gap 11 mmol/L; Blood Urea Nitrogen 14 mg/dL (9-20); Calcium 8.6 mg/dL (8.4-10.2); Carbon Dioxide 24 mmol/L (22-30); Chloride 106 mmol/L (98-107); Glucose 151 mg/dL (74-99); Magnesium 2.2 mg/dL (1.6-2.3); Non-African American GFR(MDRD) >60 (>60 ml/min/1.73 sqM); Potassium 3.8 mmol/L (3.5-5.1); Sodium 141 mmol/L (137-145); Total Bilirubin 0.6 mg/dL (0.2-1.3); Total Protein 5.7 g/dL (6.3-8.2)
[2016-11-13 06:22] LABS: Glucose,Whole Blood 153 mg/dL (75-99)
[2016-11-13] MEDS ORDERED: Potassium Replacement Protocol 1 EACH MISC MISCELLANE PRN (06:29)
[2016-11-13] MEDS: INSULIN REGULAR 100 UNIT in SODIUM CHLORIDE 0.9% 100 ML IV SCH (06:44)
[2016-11-13] MEDS ORDERED: POTASSIUM CHLORIDE ORAL LIQUID 40 MEQ/30 ML CUP NG-TUBE SCH (07:00)
[2016-11-13] MEDS: BUDESONIDE 1 MG/2 ML NEBU INHALATION SCH ×2 (07:14→19:14)
[2016-11-13 08:09] LABS: Glucose,Whole Blood 161 mg/dL (75-99)
[2016-11-13] MEDS ORDERED: hydrALAZINE HCL 20 MG/ML 1 ML VIAL IVP PRN (08:13)
[2016-11-13] MEDS: ASPIRIN 325 MG TAB PO SCH (08:23)
[2016-11-13] MEDS: CLOPIDOGREL 75 MG TAB PO SCH (08:23)
[2016-11-13] MEDS: METOPROLOL TARTRATE 12.5 MG TAB PO SCH (08:23)
[2016-11-13] MEDS: ATORVASTATIN 40 MG TAB PO SCH (08:23)
[2016-11-13] MEDS: PANTOPRAZOLE 40 MG/10 ML VIAL IVP SCH (08:24)
[2016-11-13] MEDS: THIAMINE 100 MG TAB PO SCH ×2 (08:24→20:03)
[2016-11-13 08:57] LABS: ABG HCO3 24 mmol/L (21-25); ABG PCO2 30 mmHg (35-45); ABG PH 7.51 (7.35-7.45); ABG PO2 71 mmHg (83-108); ABG TCO2 25 mmol/L (19-24)
--- NOTE | 2016-11-13 09:05 | XR ---
EXAMINATION TYPE: XR chest 1V portable DATE OF EXAM: 11/13/2016 6:02 AM COMPARISON: Prior chest x-ray 12 November 2016 HISTORY: Postop cardiac surgery, intubated TECHNIQUE: Single frontal view of the chest is obtained. FINDINGS: Endotracheal tube, NG tube, left chest tube are present and are overlying appropriate posi tions. No sizable pneumothorax. Patient is rotated. Retrocardiac density is present, there is improve d aeration at the right lung base, right-sided chest tube has been removed. Median sternal drain is n o longer seen. IMPRESSION: Improvement in aeration, interval chest tube removal.
[2016-11-13 10:12] LABS: Glucose,Whole Blood 147 mg/dL (75-99)
[2016-11-13] MEDS: CHLORHEXIDINE GLUCONATE 15 ML CUP MUCOUS MEM SCH ×2 (10:27→20:03)
[2016-11-13] MEDS: BISACODYL 10 MG SUPP RECTAL PRN (10:27)
[2016-11-13] MEDS ORDERED: LISINOPRIL 5 MG TAB PO STA (10:32)
--- NOTE | 2016-11-13 11:36 | P.PN ---
Subjective Principal diagnosis: Coronary artery disease, status post prior stenting to his right coronary artery. Preserved left ventricular function. Hyperlipidemia. Hypertension. ETOH abuse. POD #3 total arterial non-aortic patch off-pump double coronary artery bypass grafting using in situ skeletonized right internal mammary artery to the left anterior descending artery across the anterior midline in situ totally skeletonized left internal mammary artery to the first obtuse marginal artery. Intraoperative transesophageal echocardiogram and epi-aortic scanning. Intraoperative graft flow measurements using the [facility] system Patient had postoperative intraparenchymal hemorrhage with increasing oxygen demand requiring bronchoscopy the night of surgery. Patient currently sedated on mechanical ventilation. The patient had hypertension overnight, and upon assessment this morning appeared to have an upward gaze. Objective - Vital Signs Vital signs: Vital Signs Temp 97.4 F L 11/13/16 08:00 Pulse 73 11/13/16 11:25 Resp 16 11/13/16 10:00 BP 119/68 11/13/16 10:00 Pulse Ox 94 L 11/13/16 10:00 Intake & Output 11/12/16 11/13/16 11/13/16 18:59 06:59 18:59 Intake Total 678.256 784.299 265.532 Output Total 1370 366 125 Balance -691.744 418.299 140.532 Weight 98.3 kg 96.4 kg Intake: Intake, IV Titration 608.256 604.299 215.532 Amount Insulin Regular 100 unit 85.301 15.699 8.282 In Sodium Chloride 0.9% 100 ml @ Per Protocol IV .Q0M [facility] Rx#:[id number] Lactated Ringers 1,000 ml 260 240 160 @ 20 mls/hr IV .Q24H [facility] Rx#:[id number] Propofol 500 mg In Empty 262.955 348.6 47.25 Bag 1 bag @ Titrate IV . Q0M [facility] Rx#:[id number] Tube Feeding 40 120 50 Other 30 60 Output: Chest Tube Drainage 40 20 4 Left Lateral Chest 10 20 4 Mediastinal 20 Right Lateral Chest 10 Gastric Drainage 400 Urine 930 346 121 Other: Voiding Method Indwelling Catheter Indwelling Catheter # Bowel Movements 0 ABP, PAP, CO, CI - Last Documented Arterial Blood Pressure 136/55 Pulmonary Artery Pressure 46/23 Cardiac Output 6.8 Cardiac Index 3.3 - Constitutional General appearance: Present: no acute distress - Respiratory Details: Lungs sounds diminished bilaterally. Respirations even, nonlabored on mechanical ventilation. Current settings tidal volume 500, FiO2 50%, respiratory rate 20, PEEP 5. Left pleural chest tube drained 14 mL serous drainage overnight, 50 mL in the last 24 hours. - Cardiovascular Details: S1, S2 present. Regular rate and rhythm, normal sinus rhythm on telemetry, was sinus bradycardia in the 50s overnight. Sternum stable. No edema present. Teds, SCDs present. - Gastrointestinal Gastrointestinal Comment(s): Abdomen soft, nontender, nondistended. Hypoactive bowel sounds 4 quadrants. Vital tube feeding at 20 mL/h. - Genitourinary Genitourinary Comment(s): Tay present draining clear, yellow urine. - Integumentary Integumentary Comment(s): Anterior chest wall incision covered with dry intact silver dressing. - Musculoskeletal Musculoskeletal: Present: generalized weakness - Labs CBC & Chem 7: 11/13/16 05:20 11/13/16 05:20 Labs: Abnormal Lab Results - Last 24 Hours (Table) 11/12/16 11/12/16 11/12/16 Range/Units 12:03 14:14 16:18 WBC (3.8-10.6) k/uL RBC (4.30-5.90) m/uL Hgb (13.0-17.5) gm/dL Hct (39.0-53.0) % Neutrophils # (1.3-7.7) k/uL Lymphocytes # (1.0-4.8) k/uL ABG pH (7.35-7.45) ABG pCO2 (35-45) mmHg ABG pO2 (83-108) mmHg ABG Total CO2 (19-24) mmol/L Glucose (74-99) mg/dL POC Glucose (mg/dL) 172 H 140 H 128 H (75-99) mg/dL Total Protein (6.3-8.2) g/dL Albumin (3.5-5.0) g/dL 11/12/16 11/12/16 11/12/16 Range/Units 17:55 18:05 20:21 WBC (3.8-10.6) k/uL RBC (4.30-5.90) m/uL Hgb (13.0-17.5) gm/dL Hct (39.0-53.0) % Neutrophils # (1.3-7.7) k/uL Lymphocytes # (1.0-4.8) k/uL ABG pH (7.35-7.45) ABG pCO2 (35-45) mmHg ABG pO2 (83-108) mmHg ABG Total CO2 (19-24) mmol/L Glucose (74-99) mg/dL POC Glucose (mg/dL) 132 H 135 H 162 H (75-99) mg/dL Total Protein (6.3-8.2) g/dL Albumin (3.5-5.0) g/dL 11/12/16 11/13/16 11/13/16 Range/Units 21:56 00:06 02:18 WBC (3.8-10.6) k/uL RBC (4.30-5.90) m/uL Hgb (13.0-17.5) gm/dL Hct (39.0-53.0) % Neutrophils # (1.3-7.7) k/uL Lymphocytes # (1.0-4.8) k/uL ABG pH (7.35-7.45) ABG pCO2 (35-45) mmHg ABG pO2 (83-108) mmHg ABG Total CO2 (19-24) mmol/L Glucose (74-99) mg/dL POC Glucose (mg/dL) 164 H 151 H 155 H (75-99) mg/dL Total Protein (6.3-8.2) g/dL Albumin (3.5-5.0) g/dL 11/13/16 11/13/16 11/13/16 Range/Units 04:09 05:20 05:20 WBC 14.7 H (3.8-10.6) k/uL RBC 3.14 L (4.30-5.90) m/uL Hgb 10.8 L (13.0-17.5) gm/dL Hct 30.2 L (39.0-53.0) % Neutrophils # 13.1 H (1.3-7.7) k/uL Lymphocytes # 0.9 L (1.0-4.8) k/uL ABG pH (7.35-7.45) ABG pCO2 (35-45) mmHg ABG pO2 (83-108) mmHg ABG Total CO2 (19-24) mmol/L Glucose 151 H (74-99) mg/dL POC Glucose (mg/dL) 147 H (75-99) mg/dL Total Protein 5.7 L (6.3-8.2) g/dL Albumin 3.2 L (3.5-5.0) g/dL 11/13/16 11/13/16 11/13/16 Range/Units 06:21 08:08 08:48 WBC (3.8-10.6) k/uL RBC (4.30-5.90) m/uL Hgb (13.0-17.5) gm/dL Hct (39.0-53.0) % Neutrophils # (1.3-7.7) k/uL Lymphocytes # (1.0-4.8) k/uL ABG pH 7.51 H (7.35-7.45) ABG pCO2 30 L (35-45) mmHg ABG pO2 71 L (83-108) mmHg ABG Total CO2 25 H (19-24) mmol/L Glucose (74-99) mg/dL POC Glucose (mg/dL) 153 H 161 H (75-99) mg/dL Total Protein (6.3-8.2) g/dL Albumin (3.5-5.0) g/dL 11/13/16 Range/Units 10:10 WBC (3.8-10.6) k/uL RBC (4.30-5.90) m/uL Hgb (13.0-17.5) gm/dL Hct (39.0-53.0) % Neutrophils # (1.3-7.7) k/uL Lymphocytes # (1.0-4.8) k/uL ABG pH (7.35-7.45) ABG pCO2 (35-45) mmHg ABG pO2 (83-108) mmHg ABG Total CO2 (19-24) mmol/L Glucose (74-99) mg/dL POC Glucose (mg/dL) 147 H (75-99) mg/dL Total Protein (6.3-8.2) g/dL Albumin (3.5-5.0) g/dL Microbiology - Last 24 Hours (Table) 11/10/16 16:40 Gram Stain - Final Lung Aspirate - Right Bronchial Washings Culture - Final - Imaging and Cardiology Chest x-ray: report reviewed, image reviewed Assessment and Plan (1) Status post coronary artery bypass graft Status: Acute (2) Coronary artery disease Status: Acute (3) Family history of heart disease Status: Acute (4) History of PTCA Status: Acute (5) Hyperlipidemia Status: Acute (6) Hypertension Status: Acute (7) Nicotine dependence, chewing tobacco, uncomplicated Status: Acute Plan: 1. Continue aspirin, Lipitor, Plavix, heparin. Increase Lopressor to 25 mg twice a day. Will add lisinopril 5 mg daily. 2. Ventilator management per pulmonology, wean O2 as tolerated. 3. Will obtain CT of the brain per pulmonary. 4. Insulin drip/diabetic management per primary care service. 5. Continue [place] protocol for alcohol withdrawal. 6. Obtain peripheral IVs, DC Cordis. DC pleural chest tube. 7. Give PRN Dulcolax suppository today. 8. Daily labs, chest x-rays. 9. GI/DVT prophylaxis. 10. More recommendations as patient progresses. Time with Patient: Greater than 30
--- NOTE | 2016-11-13 12:22 | P.PN ---
Subjective Principal diagnosis: Status post CABG, postoperative day #3 This is a 61-year-old white male status post CABG, postoperative day #1, total arterial non-aortic patch off pump double coronary artery bypass grafting using in situ skeletonized right internal mammary artery to the left anterior descending across the anterior midline in situ totally skeletonized left internal mammary artery to the first obtuse marginal artery. Postoperatively patient was on mechanical ventilation, and upon arrival to the ICU he was found to have opacified right lung, he required bronchoscopy and extraction of mucous plugs mostly in the right upper lobe and right middle lobe. Remained on mechanical ventilation overnight, however this morning his gases are showing marginal oxygenation, his pO2 is only 63 on 50% and PEEP of 5. Patient was given a weaning trial with a pressure support of 8 and CPAP, ABG in half an hour is definitely poor showing very poor oxygenation, and his O2 saturation was in the 91% range. PO2 was only 63, hence I decided not to pursue any further weaning and extubation on this patient until his oxygenation improves better. Gram stain and cultures from the right upper lobe are pending. In the meantime the patient is receiving bronchodilators for underlying COPD, and he is also on steroids for significant wheezing noted yesterday after bronchoscopy. Patient remains on DuoNeb updrafts 4 times a day and when necessary. Reevaluated today on 11/12/2016, patient is status post CABG, postoperative day # 2 remains intubated and on mechanical ventilation. Yesterday patient could not be weaned and extubated mostly because of his marginal oxygenation. His pO2 was only 63 on 50% FiO2 and pressure support of 8 and CPAP. Hence decided not to extubate the patient, today the patient is having what seems to be a picture of alcohol withdrawal as soon as the propofol was weaned off. Hence we had to go back on the propofol, and the patient will be placed on the protocol. For alcohol withdrawal. ABG this morning seems to be a bit better, pO2 is 89 pCO2 is 33 pH of 7.37. Patient is slightly metabolically acidotic. Bicarb is 19. Hemoglobin is 10.7 WBC count is 14.0. Chest x-ray showed minimal areas of bands of atelectasis at the bases, but no further areas of collapse noted in the right upper lobe and right the lobe as seen 2 days ago. Reevaluated today on 11/13/2016, patient is status post CABG, postoperative day # 3 remains intubated on mechanical ventilation. His gases are marginal. Today I awakened the patient, and I tried to evaluate his mental status, however the patient was noted to be extremely obtunded, his eyes were deviated upwards, and I could not assess his mental status because he was basically unresponsive. This was off propofol, patient also became extremely agitated, and we had to place him back on propofol. In the meantime I ordered a CT of the brain. Ending at this point. His blood pressure was noted to go high off propofol, patient was given Apresoline for high blood pressure. He is also on beta blockers. And he is on multiple other meds for hypertension. ABG today showed a pO2 of 71 pCO2 of 30 pH of 7.51, and this is on a FiO2 of 50% and PEEP of 5. Chest x-ray showed minimal atelectasis at the bases. And overall significant improvement in aeration of both lungs. Patient remains on the protocol for alcohol withdrawal in the meantime. Objective - Vital Signs Vital signs: Vital Signs Temp 97.4 F L 11/13/16 08:00 Pulse 63 11/13/16 11:35 Resp 16 11/13/16 10:00 BP 119/68 11/13/16 10:00 Pulse Ox 94 L 11/13/16 10:00 Intake & Output 11/12/16 11/13/16 11/13/16 18:59 06:59 18:59 Intake Total 678.256 784.299 265.532 Output Total 1370 366 125 Balance -691.744 418.299 140.532 Weight 98.3 kg 96.4 kg Intake: Intake, IV Titration 608.256 604.299 215.532 Amount Insulin Regular 100 unit 85.301 15.699 8.282 In Sodium Chloride 0.9% 100 ml @ Per Protocol IV .Q0M [facility] Rx#:[id number] Lactated Ringers 1,000 ml 260 240 160 @ 20 mls/hr IV .Q24H [facility] Rx#:[id number] Propofol 500 mg In Empty 262.955 348.6 47.25 Bag 1 bag @ Titrate IV . Q0M [facility] Rx#:[id number] Tube Feeding 40 120 50 Other 30 60 Output: Chest Tube Drainage 40 20 4 Left Lateral Chest 10 20 4 Mediastinal 20 Right Lateral Chest 10 Gastric Drainage 400 Urine 930 346 121 Other: Voiding Method Indwelling Catheter Indwelling Catheter # Bowel Movements 0 ABP, PAP, CO, CI - Last Documented Arterial Blood Pressure 136/55 Pulmonary Artery Pressure 46/23 Cardiac Output 6.8 Cardiac Index 3.3 - Exam Physical Exam: Revealed a 61-year-old white male on mechanical ventilation, in no distress. HEENT:[Neck is supple.] [No neck masses.] [No thyromegaly.] [No JVD.] endotracheal tube was noted to be intact. Chest: [diminished breath sounds on the right side with slight expiratory rhonchi and wheezes noted bilaterally.] Cardiac Exam: [Normal S1 and S2, no S3 gallop, 2/6 systolic murmur throughout the precordium, positive pericardial rub] Abdomen: [Soft, nontender, no megaly, no rebound, no guarding, normal bowel sounds.] Extremities: [No clubbing, no edema, no cyanosis.] Neurological Exam: [Patient was taken off propofol to assess his mental status, however he became extremely obtunded, stiff and rigid, and his eyes were noted to be deviating upwards, hence I recommended placing him back on propofol, given Ativan, and recommended a CT of the brain. Clearly the patient is not ready to be weaned or extubated today. - Labs CBC & Chem 7: 11/13/16 05:20 11/13/16 05:20 Labs: Abnormal Lab Results - Last 24 Hours (Table) 11/12/16 11/12/16 11/12/16 Range/Units 14:14 16:18 17:55 WBC (3.8-10.6) k/uL RBC (4.30-5.90) m/uL Hgb (13.0-17.5) gm/dL Hct (39.0-53.0) % Neutrophils # (1.3-7.7) k/uL Lymphocytes # (1.0-4.8) k/uL ABG pH (7.35-7.45) ABG pCO2 (35-45) mmHg ABG pO2 (83-108) mmHg ABG Total CO2 (19-24) mmol/L Glucose (74-99) mg/dL POC Glucose (mg/dL) 140 H 128 H 132 H (75-99) mg/dL Total Protein (6.3-8.2) g/dL Albumin (3.5-5.0) g/dL 11/12/16 11/12/16 11/12/16 Range/Units 18:05 20:21 21:56 WBC (3.8-10.6) k/uL RBC (4.30-5.90) m/uL Hgb (13.0-17.5) gm/dL Hct (39.0-53.0) % Neutrophils # (1.3-7.7) k/uL Lymphocytes # (1.0-4.8) k/uL ABG pH (7.35-7.45) ABG pCO2 (35-45) mmHg ABG pO2 (83-108) mmHg ABG Total CO2 (19-24) mmol/L Glucose (74-99) mg/dL POC Glucose (mg/dL) 135 H 162 H 164 H (75-99) mg/dL Total Protein (6.3-8.2) g/dL Albumin (3.5-5.0) g/dL 11/13/16 11/13/16 11/13/16 Range/Units 00:06 02:18 04:09 WBC (3.8-10.6) k/uL RBC (4.30-5.90) m/uL Hgb (13.0-17.5) gm/dL Hct (39.0-53.0) % Neutrophils # (1.3-7.7) k/uL Lymphocytes # (1.0-4.8) k/uL ABG pH (7.35-7.45) ABG pCO2 (35-45) mmHg ABG pO2 (83-108) mmHg ABG Total CO2 (19-24) mmol/L Glucose (74-99) mg/dL POC Glucose (mg/dL) 151 H 155 H 147 H (75-99) mg/dL Total Protein (6.3-8.2) g/dL Albumin (3.5-5.0) g/dL 11/13/16 11/13/16 11/13/16 Range/Units 05:20 05:20 06:21 WBC 14.7 H (3.8-10.6) k/uL RBC 3.14 L (4.30-5.90) m/uL Hgb 10.8 L (13.0-17.5) gm/dL Hct 30.2 L (39.0-53.0) % Neutrophils # 13.1 H (1.3-7.7) k/uL Lymphocytes # 0.9 L (1.0-4.8) k/uL ABG pH (7.35-7.45) ABG pCO2 (35-45) mmHg ABG pO2 (83-108) mmHg ABG Total CO2 (19-24) mmol/L Glucose 151 H (74-99) mg/dL POC Glucose (mg/dL) 153 H (75-99) mg/dL Total Protein 5.7 L (6.3-8.2) g/dL Albumin 3.2 L (3.5-5.0) g/dL 11/13/16 11/13/16 11/13/16 Range/Units 08:08 08:48 10:10 WBC (3.8-10.6) k/uL RBC (4.30-5.90) m/uL Hgb (13.0-17.5) gm/dL Hct (39.0-53.0) % Neutrophils # (1.3-7.7) k/uL Lymphocytes # (1.0-4.8) k/uL ABG pH 7.51 H (7.35-7.45) ABG pCO2 30 L (35-45) mmHg ABG pO2 71 L (83-108) mmHg ABG Total CO2 25 H (19-24) mmol/L Glucose (74-99) mg/dL POC Glucose (mg/dL) 161 H 147 H (75-99) mg/dL Total Protein (6.3-8.2) g/dL Albumin (3.5-5.0) g/dL Microbiology - Last 24 Hours (Table) 11/10/16 16:40 Gram Stain - Final Lung Aspirate - Right Bronchial Washings Culture - Final Assessment and Plan Plan: impression: 1 status post CABG, postoperative day # 3 2 history of nicotine dependence and suspect some component of COPD 3 history of documented coronary artery disease based on a recent cardiac catheterization 4 history ofpercutaneous revascularization of the proximal right coronary artery in 2000 5history of hypertension 6 history of myocardial infarction 7 status post bronchoscopy and bronchoalveolar lavage of the right upper lobe read lobe and right lower lobe upon arrival to the ICU. 8 failure to wean mostly secondary to relative hypoxemia, O2 saturation is very marginal, and it is in the 70s at 50%. And because of the mental status and suspected alcohol withdrawal is another major factor that delaying the weaning process. 9 suspect acute alcohol withdrawal considering the patient is a heavy drinker, hence the patient will be placed on the protocol, and I will hold on weaning trials today. PEEP will be placed on 5, FiO2 will remain at 50%. Continue assist control mode of mechanical ventilation, and address nutritional support. Arrange for a CT of the brain today Recommendation: Patient will be kept on mechanical ventilation today, continue bronchodilators, steroids, we'll continue to assess weaning process on a daily basis. Clearly the patient is not ready to be weaned or extubated today. Critical care time is 35 minutes. Time with Patient: Greater than 30
--- NOTE | 2016-11-13 12:43 | CT ---
EXAMINATION TYPE: CT brain wo con DATE OF EXAM: 11/13/2016 12:26 PM COMPARISON: NONE HISTORY: possible stroke post open heart CT DLP: 1037.1 mGycm Automated exposure control for dose reduction was used. FINDINGS: There is cerebral cortical atrophy. There is no mass effect nor midline shift. There is no sign of in tracranial hemorrhage. There is mild patchy hypodensity in the periventricular white matter. The calv arium is intact. IMPRESSION: Mild atrophy and chronic small vessel ischemia. No acute intracranial abnormality.
[2016-11-13 13:32] LABS: Glucose,Whole Blood 121 mg/dL (75-99)
[2016-11-13] MEDS: CLEVIDIPINE BUTYRATE 25 MG in EMPTY BAG 1 BAG IV SCH (13:54)
[2016-11-13] MEDS: MULTIVITAMINS, THERA LIQUID 237 ML BOTTLE PO SCH (14:52)
[2016-11-13] MEDS: LACTATED RINGERS 1,000 ML IV SCH (14:52)
[2016-11-13 15:11] LABS: Glucose,Whole Blood 133 mg/dL (75-99)
[2016-11-13 16:01] LABS: Glucose,Whole Blood 147 mg/dL (75-99)
[2016-11-13 17:42] LABS: Glucose,Whole Blood 139 mg/dL (75-99)
[2016-11-13 19:56] LABS: Glucose,Whole Blood 133 mg/dL (75-99)
[2016-11-13] MEDS: SENNOSIDES-DOCUSATE SODIUM 1 EACH TAB PO SCH (20:03)
[2016-11-13] MEDS: METOPROLOL TARTRATE 25 MG TAB PO SCH (20:04)
[2016-11-13 21:55] LABS: Glucose,Whole Blood 151 mg/dL (75-99)
[2016-11-14 00:49] LABS: Glucose,Whole Blood 133 mg/dL (75-99)
[2016-11-14] MEDS: PROPOFOL 500 MG in EMPTY BAG 1 BAG IV SCH ×9 (00:50→23:46)
[2016-11-14 02:05] LABS: Glucose,Whole Blood 181 mg/dL (75-99)
[2016-11-14] MEDS: IPRATROPIUM-ALBUTEROL 3 ML NEB INHALATION SCH ×6 (02:59→22:43)
[2016-11-14 04:36] LABS: Glucose,Whole Blood 152 mg/dL (75-99)
[2016-11-14 06:04] LABS: Glucose,Whole Blood 160 mg/dL (75-99)
[2016-11-14 07:04] LABS: Basophils % (A) 0 %; CH 33.3; Eosinophils # (A) 0.1 k/uL (0-0.7); Eosinophils % (A) 1 %; HCT 32.4 % (39.0-53.0); HDW 2.53; HGB 11.3 gm/dL (13.0-17.5); Luc # (Auto) 0.09; Luc % (Auto) 1; Lymphocytes # (A) 1.3 k/uL (1.0-4.8); Lymphocytes % (A) 10 %; MCH 34.2 pg (25.0-35.0); MCHC 34.8 g/dL (31.0-37.0); MCV 98.3 fL (80.0-100.0); Mean Platelet Volume 6.8; Monocytes # (A) 0.6 k/uL (0-1.0); Monocytes % (A) 4 %; Neutrophils # (A) 10.9 k/uL (1.3-7.7); Neutrophils % (A) 85 %; RDW 14.1 % (11.5-15.5); WBC 12.9 k/uL (3.8-10.6); WBC (Perox) 13.57
[2016-11-14] MEDS ORDERED: PROPOFOL 1,000 MG in EMPTY BAG 1 BAG IV SCH (07:26)
[2016-11-14] MEDS: BUDESONIDE 1 MG/2 ML NEBU INHALATION SCH ×2 (07:27→19:39)
[2016-11-14 07:31] LABS: Ionized Calcium 5.1 mg/dL (4.5-5.3)
--- NOTE | 2016-11-14 07:32 | XR ---
EXAMINATION TYPE: XR chest 1V portable DATE OF EXAM: 11/14/2016 6:56 AM Comparison: 11/13/2016 Clinical History: 61 year-old male tube placement Findings: ET tube tip difficult to clearly seen but estimated at 2.3 cm from the stephanie. NG tube courses below the diaphragm. Median sternotomy wires are present with post-CABG clips. Heart remains mildly enlarge d with diffuse interstitial dominance. Small left pleural effusion with patchy left basilar and retro cardiac opacity remains. No appreciable pneumothorax. Impression: Suspect small left pleural effusion with adjacent left basilar atelectasis and/or consolidation, not significantly changed from 11/13/2016. Correlate to exclude mild pulmonary vascular congestion.
[2016-11-14 07:36] LABS: Glucose,Whole Blood 149 mg/dL (75-99)
[2016-11-14 07:48] LABS: ABG Base Excess 1.7 mmol/L; ABG HCO3 25 mmol/L (21-25); ABG PCO2 34 mmHg (35-45); ABG PH 7.48 (7.35-7.45); ABG PO2 84 mmHg (83-108); ABG TCO2 26 mmol/L (19-24)
[2016-11-14] MEDS: HEPARIN SODIUM,PORCINE 5,000 UNIT/ML 1 ML VIAL SQ SCH ×3 (07:50→23:48)
[2016-11-14] MEDS: ASPIRIN 325 MG TAB PO SCH (08:02)
[2016-11-14] MEDS: METOPROLOL TARTRATE 25 MG TAB PO SCH ×2 (08:02→20:13)
[2016-11-14] MEDS: CHLORHEXIDINE GLUCONATE 15 ML CUP MUCOUS MEM SCH ×2 (08:02→20:13)
[2016-11-14] MEDS: ATORVASTATIN 40 MG TAB PO SCH (08:02)
[2016-11-14] MEDS: CLOPIDOGREL 75 MG TAB PO SCH (08:03)
[2016-11-14] MEDS: methylPREDNISolone SOD SUCCI 40 MG/ML 1 ML VIAL IV SCH ×2 (08:03→20:13)
[2016-11-14] MEDS: LISINOPRIL 5 MG TAB PO SCH (08:03)
[2016-11-14] MEDS: PANTOPRAZOLE 40 MG/10 ML VIAL IVP SCH (08:03)
[2016-11-14] MEDS: THIAMINE 100 MG TAB PO SCH ×2 (08:04→20:13)
[2016-11-14 08:08] LABS: ALT 25 U/L (21-72); AST 21 U/L (17-59); Alkaline Phosphatase 46 U/L (38-126); Anion Gap 8 mmol/L; Blood Urea Nitrogen 26 mg/dL (9-20); Calcium 8.7 mg/dL (8.4-10.2); Carbon Dioxide 25 mmol/L (22-30); Chloride 107 mmol/L (98-107); Glucose 160 mg/dL (74-99); Magnesium 2.6 mg/dL (1.6-2.3); Non-African American GFR(MDRD) >60 (>60 ml/min/1.73 sqM); Potassium 4.6 mmol/L (3.5-5.1); Sodium 140 mmol/L (137-145); Total Bilirubin 0.4 mg/dL (0.2-1.3); Total Protein 5.7 g/dL (6.3-8.2)
[2016-11-14 09:48] LABS: Glucose,Whole Blood 158 mg/dL (75-99)
--- NOTE | 2016-11-14 09:54 | P.PN ---
Subjective Principal diagnosis: Coronary artery disease, status post prior stenting to his right coronary artery. Preserved left ventricular function. Hyperlipidemia. Hypertension. ETOH abuse. POD #4 total arterial non-aortic patch off-pump double coronary artery bypass grafting using in situ skeletonized right internal mammary artery to the left anterior descending artery across the anterior midline in situ totally skeletonized left internal mammary artery to the first obtuse marginal artery. Intraoperative transesophageal echocardiogram and epi-aortic scanning. Intraoperative graft flow measurements using the [employer] system Patient had postoperative mucous plugging with increasing oxygen demand requiring bronchoscopy the night of surgery. Bronchial washings negative for bacteria/viruses to date. Pt developed postoperative alcohol withdrawal requiring increased sedation and continued mechanical ventilation. Patient currently sedated on mechanical ventilation. CT of brain performed yesterday negative for any acute process. Objective - Vital Signs Vital signs: Vital Signs Temp 98.3 F 11/14/16 08:00 Pulse 58 L 11/14/16 09:00 Resp 15 11/14/16 09:00 BP 106/65 11/14/16 09:00 Pulse Ox 93 L 11/14/16 09:00 Intake & Output 11/13/16 11/14/16 11/14/16 18:59 06:59 18:59 Intake Total 3617.499 3227.154 128.972 Output Total 396 506 40 Balance 762.628 927.154 88.972 Weight 97.4 kg Intake: Intake, IV Titration 538.628 553.154 48.972 Amount Insulin Regular 100 unit 21.378 10.317 1.7 In Sodium Chloride 0.9% 100 ml @ Per Protocol IV .Q0M [facility] Rx#:[id number] Lactated Ringers 1,000 ml 320 260 20 @ 20 mls/hr IV .Q24H [facility] Rx#:[id number] Propofol 1,000 mg In 27.272 Empty Bag 1 bag @ Titrate IV .Q0M [facility] Rx#: [id number] Propofol 500 mg In Empty 197.25 282.837 Bag 1 bag @ Titrate IV . Q0M [facility] Rx#:[id number] Tube Feeding 560 790 50 Other 60 90 30 Output: Chest Tube Drainage 4 Left Lateral Chest 4 Urine 392 506 40 Other: Voiding Method Indwelling Catheter Indwelling Catheter # Bowel Movements 1 1 ABP, PAP, CO, CI - Last Documented Arterial Blood Pressure 124/88 Pulmonary Artery Pressure 46/23 Cardiac Output 6.8 Cardiac Index 3.3 - Constitutional General appearance: Present: no acute distress - Respiratory Details: Lungs sounds diminished bilaterally. Respirations even, nonlabored on mechanical ventilation. Current settings tidal volume 500, FiO2 60%, respiratory rate 16, PEEP 5. - Cardiovascular Details: S1, S2 present. Regular rate and rhythm, normal sinus rhythm on telemetry, no events noted overnight on telemetry. Sternum stable. Teds/SCDs present. - Gastrointestinal Gastrointestinal Comment(s): Abdomen soft, nontender, nondistended. Active bowel sounds 4 quadrants. Vital tube feeding at 50 mL per hour through OG tube. - Genitourinary Genitourinary Comment(s): Tay present draining clear, yellow urine. - Integumentary Integumentary Comment(s): Anterior chest incision covered dry intact silver dressing. - Neurologic Neurologic Comment(s): Patient Sedated overnight, sedation holiday to be trialed this morning with hopes of weaning from mechanical ventilation. - Labs CBC & Chem 7: 11/14/16 06:50 11/14/16 06:50 Labs: Abnormal Lab Results - Last 24 Hours (Table) 11/13/16 11/13/16 11/13/16 Range/Units 10:10 13:31 15:09 WBC (3.8-10.6) k/uL RBC (4.30-5.90) m/uL Hgb (13.0-17.5) gm/dL Hct (39.0-53.0) % Neutrophils # (1.3-7.7) k/uL ABG pH (7.35-7.45) ABG pCO2 (35-45) mmHg ABG Total CO2 (19-24) mmol/L BUN (9-20) mg/dL Glucose (74-99) mg/dL POC Glucose (mg/dL) 147 H 121 H 133 H (75-99) mg/dL Magnesium (1.6-2.3) mg/dL Total Protein (6.3-8.2) g/dL Albumin (3.5-5.0) g/dL 11/13/16 11/13/16 11/13/16 Range/Units 16:00 17:41 19:54 WBC (3.8-10.6) k/uL RBC (4.30-5.90) m/uL Hgb (13.0-17.5) gm/dL Hct (39.0-53.0) % Neutrophils # (1.3-7.7) k/uL ABG pH (7.35-7.45) ABG pCO2 (35-45) mmHg ABG Total CO2 (19-24) mmol/L BUN (9-20) mg/dL Glucose (74-99) mg/dL POC Glucose (mg/dL) 147 H 139 H 133 H (75-99) mg/dL Magnesium (1.6-2.3) mg/dL Total Protein (6.3-8.2) g/dL Albumin (3.5-5.0) g/dL 11/13/16 11/14/16 11/14/16 Range/Units 21:53 00:48 02:04 WBC (3.8-10.6) k/uL RBC (4.30-5.90) m/uL Hgb (13.0-17.5) gm/dL Hct (39.0-53.0) % Neutrophils # (1.3-7.7) k/uL ABG pH (7.35-7.45) ABG pCO2 (35-45) mmHg ABG Total CO2 (19-24) mmol/L BUN (9-20) mg/dL Glucose (74-99) mg/dL POC Glucose (mg/dL) 151 H 133 H 181 H (75-99) mg/dL Magnesium (1.6-2.3) mg/dL Total Protein (6.3-8.2) g/dL Albumin (3.5-5.0) g/dL 11/14/16 11/14/16 11/14/16 Range/Units 04:32 06:01 06:50 WBC 12.9 H (3.8-10.6) k/uL RBC 3.30 L (4.30-5.90) m/uL Hgb 11.3 L (13.0-17.5) gm/dL Hct 32.4 L (39.0-53.0) % Neutrophils # 10.9 H (1.3-7.7) k/uL ABG pH (7.35-7.45) ABG pCO2 (35-45) mmHg ABG Total CO2 (19-24) mmol/L BUN (9-20) mg/dL Glucose (74-99) mg/dL POC Glucose (mg/dL) 152 H 160 H (75-99) mg/dL Magnesium (1.6-2.3) mg/dL Total Protein (6.3-8.2) g/dL Albumin (3.5-5.0) g/dL 11/14/16 11/14/16 11/14/16 Range/Units 06:50 07:32 07:33 WBC (3.8-10.6) k/uL RBC (4.30-5.90) m/uL Hgb (13.0-17.5) gm/dL Hct (39.0-53.0) % Neutrophils # (1.3-7.7) k/uL ABG pH 7.48 H (7.35-7.45) ABG pCO2 34 L (35-45) mmHg ABG Total CO2 26 H (19-24) mmol/L BUN 26 H (9-20) mg/dL Glucose 160 H (74-99) mg/dL POC Glucose (mg/dL) 149 H (75-99) mg/dL Magnesium 2.6 H (1.6-2.3) mg/dL Total Protein 5.7 L (6.3-8.2) g/dL Albumin 2.9 L (3.5-5.0) g/dL - Imaging and Cardiology Chest x-ray: report reviewed, image reviewed Assessment and Plan (1) Status post coronary artery bypass graft Status: Acute (2) Coronary artery disease Status: Acute (3) Family history of heart disease Status: Acute (4) History of PTCA Status: Acute (5) Hyperlipidemia Status: Acute (6) Hypertension Status: Acute (7) Nicotine dependence, chewing tobacco, uncomplicated Status: Acute Plan: 1. Continue aspirin, Lipitor, Plavix, heparin, Lopressor, lisinopril. 2. Ventilator management per pulmonology, wean O2 as tolerated. 3. Insulin/diabetic management per primary care service. 4. Continue [facility] protocol for alcohol withdrawal. 5. Daily labs, chest x-rays. 6. GI/DVT prophylaxis. 7. More recommendations as patient progresses. Time with Patient: Greater than 30
[2016-11-14] MEDS ORDERED: BENZOCAINE SPRAY 100 APPLIC/CAN MUCOUS MEM PRN (11:16)
--- NOTE | 2016-11-14 11:27 | P.PN ---
Subjective Principal diagnosis: Status post coronary artery bypass grafting, postoperative day #4. This is a 61-year-old white male status post CABG, postoperative day #1, total arterial non-aortic patch off pump double coronary artery bypass grafting using in situ skeletonized right internal mammary artery to the left anterior descending across the anterior midline in situ totally skeletonized left internal mammary artery to the first obtuse marginal artery. Postoperatively patient was on mechanical ventilation, and upon arrival to the ICU he was found to have opacified right lung, he required bronchoscopy and extraction of mucous plugs mostly in the right upper lobe and right middle lobe. Remained on mechanical ventilation overnight, however this morning his gases are showing marginal oxygenation, his pO2 is only 63 on 50% and PEEP of 5. Patient was given a weaning trial with a pressure support of 8 and CPAP, ABG in half an hour is definitely poor showing very poor oxygenation, and his O2 saturation was in the 91% range. PO2 was only 63, hence I decided not to pursue any further weaning and extubation on this patient until his oxygenation improves better. Gram stain and cultures from the right upper lobe are pending. In the meantime the patient is receiving bronchodilators for underlying COPD, and he is also on steroids for significant wheezing noted yesterday after bronchoscopy. Patient remains on DuoNeb updrafts 4 times a day and when necessary. Reevaluated today on 11/12/2016, patient is status post CABG, postoperative day # 2 remains intubated and on mechanical ventilation. Yesterday patient could not be weaned and extubated mostly because of his marginal oxygenation. His pO2 was only 63 on 50% FiO2 and pressure support of 8 and CPAP. Hence decided not to extubate the patient, today the patient is having what seems to be a picture of alcohol withdrawal as soon as the propofol was weaned off. Hence we had to go back on the propofol, and the patient will be placed on the protocol. For alcohol withdrawal. ABG this morning seems to be a bit better, pO2 is 89 pCO2 is 33 pH of 7.37. Patient is slightly metabolically acidotic. Bicarb is 19. Hemoglobin is 10.7 WBC count is 14.0. Chest x-ray showed minimal areas of bands of atelectasis at the bases, but no further areas of collapse noted in the right upper lobe and right the lobe as seen 2 days ago. Reevaluated today on 11/13/2016, patient is status post CABG, postoperative day # 3 remains intubated on mechanical ventilation. His gases are marginal. Today I awakened the patient, and I tried to evaluate his mental status, however the patient was noted to be extremely obtunded, his eyes were deviated upwards, and I could not assess his mental status because he was basically unresponsive. This was off propofol, patient also became extremely agitated, and we had to place him back on propofol. In the meantime I ordered a CT of the brain. Ending at this point. His blood pressure was noted to go high off propofol, patient was given Apresoline for high blood pressure. He is also on beta blockers. And he is on multiple other meds for hypertension. ABG today showed a pO2 of 71 pCO2 of 30 pH of 7.51, and this is on a FiO2 of 50% and PEEP of 5. Chest x-ray showed minimal atelectasis at the bases. And overall significant improvement in aeration of both lungs. Patient remains on the protocol for alcohol withdrawal in the meantime. The patient is seen again today 11/14/2016 in follow-up. He is status post CABG , postoperative day #4. He remains intubated on mechanical ventilator. Assist- control of 16, tidal volume 500, FiO2 60%, PEEP of 5. Arterial blood gases reveal a pO2 of 84, pCO2 34, pH 7.48. Mild respiratory alkalosis. Previous attempts to wean the patient failed based on significant hypertension with systolic pressure greater than 200, tachycardia as well. There was concern regarding possible alcohol withdrawal and he was started on the CIWA protocol. His initial chest x-ray had revealed a near complete white out of the right lung and he had undergone bronchoscopy with extraction of mucous plugging in the right upper and middle lobes. Today's chest x-ray show some mild pulmonary vascular congestion was small left pleural effusion/atelectasis. His current receiving lactated Ringer's at a KVO, Brovana at 40 mcg/kg/m. He is also receiving Vital HP tube feedings at 50 mL per hour which is at goal. Objective - Vital Signs Vital signs: Vital Signs Temp 98.3 F 11/14/16 08:00 Pulse 59 L 11/14/16 10:00 Resp 16 11/14/16 10:00 BP 119/69 11/14/16 10:00 Pulse Ox 94 L 11/14/16 10:00 Intake & Output 11/13/16 11/14/16 11/14/16 18:59 06:59 18:59 Intake Total 0856.989 3373.154 319.527 Output Total 396 506 120 Balance 762.628 927.154 199.527 Weight 97.4 kg Intake: Intake, IV Titration 538.628 553.154 139.527 Amount Insulin Regular 100 unit 21.378 10.317 1.7 In Sodium Chloride 0.9% 100 ml @ Per Protocol IV .Q0M [facility] Rx#:[id number] Lactated Ringers 1,000 ml 320 260 70 @ 20 mls/hr IV .Q24H [facility] Rx#:[id number] Propofol 1,000 mg In 67.827 Empty Bag 1 bag @ Titrate IV .Q0M [facility] Rx#: [id number] Propofol 500 mg In Empty 197.25 282.837 Bag 1 bag @ Titrate IV . Q0M [facility] Rx#:[id number] Tube Feeding 560 790 150 Other 60 90 30 Output: Chest Tube Drainage 4 Left Lateral Chest 4 Urine 392 506 120 Other: Voiding Method Indwelling Catheter Indwelling Catheter # Bowel Movements 1 1 ABP, PAP, CO, CI - Last Documented Arterial Blood Pressure 126/60 Pulmonary Artery Pressure 46/23 Cardiac Output 6.8 Cardiac Index 3.3 - Exam GENERAL EXAM: Intubated, sedated. HEAD: Normocephalic. EYES: Sluggish reaction of pupils, equal size. NOSE: Clear with pink turbinates. THROAT: No erythema or exudates. NECK: No masses, no JVD. CHEST: No chest wall deformity. LUNGS: Equal air entry with faint crackles in the bilateral posterior bases, more so on the left. CVS: S1 and S2 normal with no audible murmurs, regular rhythm. ABDOMEN: No hepatosplenomegaly, normal bowel sounds, no guarding or rigidity. Extremities: There is trace peripheral edema. No clubbing, no cyanosis. Peripheral pulses are intact. - Labs CBC & Chem 7: 11/14/16 06:50 11/14/16 06:50 Labs: Abnormal Lab Results - Last 24 Hours (Table) 11/13/16 11/13/16 11/13/16 Range/Units 13:31 15:09 16:00 WBC (3.8-10.6) k/uL RBC (4.30-5.90) m/uL Hgb (13.0-17.5) gm/dL Hct (39.0-53.0) % Neutrophils # (1.3-7.7) k/uL ABG pH (7.35-7.45) ABG pCO2 (35-45) mmHg ABG Total CO2 (19-24) mmol/L BUN (9-20) mg/dL Glucose (74-99) mg/dL POC Glucose (mg/dL) 121 H 133 H 147 H (75-99) mg/dL Magnesium (1.6-2.3) mg/dL Total Protein (6.3-8.2) g/dL Albumin (3.5-5.0) g/dL 11/13/16 11/13/16 11/13/16 Range/Units 17:41 19:54 21:53 WBC (3.8-10.6) k/uL RBC (4.30-5.90) m/uL Hgb (13.0-17.5) gm/dL Hct (39.0-53.0) % Neutrophils # (1.3-7.7) k/uL ABG pH (7.35-7.45) ABG pCO2 (35-45) mmHg ABG Total CO2 (19-24) mmol/L BUN (9-20) mg/dL Glucose (74-99) mg/dL POC Glucose (mg/dL) 139 H 133 H 151 H (75-99) mg/dL Magnesium (1.6-2.3) mg/dL Total Protein (6.3-8.2) g/dL Albumin (3.5-5.0) g/dL 11/14/16 11/14/16 11/14/16 Range/Units 00:48 02:04 04:32 WBC (3.8-10.6) k/uL RBC (4.30-5.90) m/uL Hgb (13.0-17.5) gm/dL Hct (39.0-53.0) % Neutrophils # (1.3-7.7) k/uL ABG pH (7.35-7.45) ABG pCO2 (35-45) mmHg ABG Total CO2 (19-24) mmol/L BUN (9-20) mg/dL Glucose (74-99) mg/dL POC Glucose (mg/dL) 133 H 181 H 152 H (75-99) mg/dL Magnesium (1.6-2.3) mg/dL Total Protein (6.3-8.2) g/dL Albumin (3.5-5.0) g/dL 11/14/16 11/14/16 11/14/16 Range/Units 06:01 06:50 06:50 WBC 12.9 H (3.8-10.6) k/uL RBC 3.30 L (4.30-5.90) m/uL Hgb 11.3 L (13.0-17.5) gm/dL Hct 32.4 L (39.0-53.0) % Neutrophils # 10.9 H (1.3-7.7) k/uL ABG pH (7.35-7.45) ABG pCO2 (35-45) mmHg ABG Total CO2 (19-24) mmol/L BUN 26 H (9-20) mg/dL Glucose 160 H (74-99) mg/dL POC Glucose (mg/dL) 160 H (75-99) mg/dL Magnesium 2.6 H (1.6-2.3) mg/dL Total Protein 5.7 L (6.3-8.2) g/dL Albumin 2.9 L (3.5-5.0) g/dL 11/14/16 11/14/16 11/14/16 Range/Units 07:32 07:33 09:46 WBC (3.8-10.6) k/uL RBC (4.30-5.90) m/uL Hgb (13.0-17.5) gm/dL Hct (39.0-53.0) % Neutrophils # (1.3-7.7) k/uL ABG pH 7.48 H (7.35-7.45) ABG pCO2 34 L (35-45) mmHg ABG Total CO2 26 H (19-24) mmol/L BUN (9-20) mg/dL Glucose (74-99) mg/dL POC Glucose (mg/dL) 149 H 158 H (75-99) mg/dL Magnesium (1.6-2.3) mg/dL Total Protein (6.3-8.2) g/dL Albumin (3.5-5.0) g/dL Assessment and Plan Plan: Impression: 1 status post CABG, postoperative day # 4 2 history of nicotine dependence and suspect some component of COPD 3 history of documented coronary artery disease based on a recent cardiac catheterization 4 history of percutaneous revascularization of the proximal right coronary artery in 2000 5 history of hypertension 6 history of myocardial infarction 7 status post bronchoscopy and bronchoalveolar lavage of the right upper lobe read lobe and right lower lobe upon arrival to the ICU. Bronchial washings are pending. 8 failure to wean mostly secondary to relative hypoxemia, O2 saturation is very marginal, and it is in the 70s at 50%. And because of the mental status and suspected alcohol withdrawal is another major factor that delaying the weaning process. 9 suspect acute alcohol withdrawal considering the patient is a heavy drinker Plan: The patient was seen and evaluated by Dr. Toro. His chest x-ray ABGs and labs were reviewed. We will initiate a daily interruption of sedation and weaning parameters if tolerated. We will continue with his current medications. He remains on heparin for DVT prophylaxis and Protonix for GI prophylaxis. Continue bronchodilators and IV Solu-Medrol. We will continue to follow and make further recommendations based on his clinical status. Critical care time 38 minutes. Time with Patient: Greater than 30
[2016-11-14 11:36] LABS: Glucose,Whole Blood 129 mg/dL (75-99)
[2016-11-14] MEDS: MULTIVITAMINS, THERA LIQUID 237 ML BOTTLE PO SCH (13:53)
[2016-11-14 14:00] LABS: Glucose,Whole Blood 150 mg/dL (75-99)
[2016-11-14 14:20] LABS: ABG PH 7.46 (7.35-7.45); ABG PO2 149 mmHg (83-108)
[2016-11-14 14:22] LABS: ABG Base Excess 1.5 mmol/L; ABG HCO3 24 mmol/L (21-25); ABG Oxygen Saturation 98.7 % (94-97); ABG PCO2 32 mmHg (35-45); ABG PH 7.49 (7.35-7.45); ABG PO2 108 mmHg (83-108); ABG TCO2 25 mmol/L (19-24)
[2016-11-14 14:23] LABS: ABG Base Excess -1.5 mmol/L; ABG HCO3 21 mmol/L (21-25); ABG Oxygen Saturation 99.5 % (94-97); ABG PCO2 30 mmHg (35-45); ABG PH 7.47 (7.35-7.45); ABG PO2 149 mmHg (83-108); ABG TCO2 22 mmol/L (19-24)
[2016-11-14 14:24] LABS: ABG Base Excess 0.4 mmol/L; ABG HCO3 23 mmol/L (21-25); ABG Oxygen Saturation 97.9 % (94-97); ABG PCO2 34 mmHg (35-45); ABG PH 7.46 (7.35-7.45); ABG PO2 96 mmHg (83-108); ABG TCO2 25 mmol/L (19-24)
[2016-11-14 14:25] LABS: ABG Base Excess -0.4 mmol/L; ABG HCO3 24 mmol/L (21-25); ABG Oxygen Saturation 99.2 % (94-97); ABG PCO2 41 mmHg (35-45); ABG PH 7.38 (7.35-7.45); ABG PO2 142 mmHg (83-108); ABG TCO2 25 mmol/L (19-24)
[2016-11-14 15:36] LABS: Glucose,Whole Blood 126 mg/dL (75-99)
--- NOTE | 2016-11-14 16:38 | P.PN ---
Subjective Principal diagnosis: Status post bypass surgery Patient is status post aorto coronary bypass surgery and has been having issues with respiratory failure requiring mechanical ventilation. Patient's postoperative day 4. Patient had acute pulmonary edema patient also had been having issues with alcohol withdrawal. At times are being made to wean him off the respirator. There is also history of COPD and any couldn't in dependents. Failure to wean seemed to mostly related to hypoxia. His blood pressure running about 135/57. Pulse rate is about 75. Patient is unresponsive at this time. Sedation is being held Objective - Vital Signs Vital signs: Vital Signs Temp 98.6 F 11/14/16 16:00 Pulse 75 11/14/16 16:11 Resp 23 11/14/16 16:00 BP 97/61 11/14/16 16:00 Pulse Ox 91 L 11/14/16 16:00 Intake & Output 11/13/16 11/14/16 11/14/16 18:59 06:59 18:59 Intake Total 8798.703 5792.154 873.292 Output Total 396 506 435 Balance 762.628 927.154 438.292 Weight 97.4 kg 97.4 kg Intake: Intake, IV Titration 538.628 553.154 333.292 Amount Insulin Regular 100 unit 21.378 10.317 3.167 In Sodium Chloride 0.9% 100 ml @ Per Protocol IV .Q0M [facility] Rx#:[id number] Lactated Ringers 1,000 ml 320 260 190 @ 20 mls/hr IV .Q24H [facility] Rx#:[id number] Propofol 1,000 mg In 82.724 Empty Bag 1 bag @ Titrate IV .Q0M [facility] Rx#: [id number] Propofol 500 mg In Empty 197.25 282.837 Bag 1 bag @ Titrate IV . Q0M [facility] Rx#:[id number] Propofol 500 mg In Empty 57.401 Bag 1 bag @ Titrate IV . Q0M [facility] Rx#:[id number] Tube Feeding 560 790 450 Other 60 90 90 Output: Chest Tube Drainage 4 Left Lateral Chest 4 Urine 392 506 435 Other: Voiding Method Indwelling Catheter Indwelling Catheter Indwelling Catheter # Bowel Movements 1 1 ABP, PAP, CO, CI - Last Documented Arterial Blood Pressure 135/57 Pulmonary Artery Pressure 46/23 Cardiac Output 6.8 Cardiac Index 3.3 - Labs CBC & Chem 7: 11/14/16 06:50 11/14/16 06:50 Labs: Abnormal Lab Results - Last 24 Hours (Table) 11/10/16 11/10/16 11/10/16 Range/Units 08:53 10:35 11:13 WBC (3.8-10.6) k/uL RBC (4.30-5.90) m/uL Hgb (13.0-17.5) gm/dL Hct (39.0-53.0) % Neutrophils # (1.3-7.7) k/uL ABG pH 7.46 H 7.49 H 7.47 H (7.35-7.45) ABG pCO2 32 L 30 L (35-45) mmHg ABG pO2 149 H 149 H (83-108) mmHg ABG Total CO2 25 H (19-24) mmol/L ABG O2 Saturation 98.7 H 99.5 H (94-97) % ABG Hematocrit 31 L (34.0-46.0) % BUN (9-20) mg/dL Glucose (74-99) mg/dL POC Glucose (mg/dL) (75-99) mg/dL Magnesium (1.6-2.3) mg/dL Total Protein (6.3-8.2) g/dL Albumin (3.5-5.0) g/dL 11/10/16 11/10/16 11/13/16 Range/Units 11:59 12:52 17:41 WBC (3.8-10.6) k/uL RBC (4.30-5.90) m/uL Hgb (13.0-17.5) gm/dL Hct (39.0-53.0) % Neutrophils # (1.3-7.7) k/uL ABG pH 7.46 H (7.35-7.45) ABG pCO2 34 L (35-45) mmHg ABG pO2 142 H (83-108) mmHg ABG Total CO2 25 H 25 H (19-24) mmol/L ABG O2 Saturation 97.9 H 99.2 H (94-97) % ABG Hematocrit 31 L 30 L (34.0-46.0) % BUN (9-20) mg/dL Glucose (74-99) mg/dL POC Glucose (mg/dL) 139 H (75-99) mg/dL Magnesium (1.6-2.3) mg/dL Total Protein (6.3-8.2) g/dL Albumin (3.5-5.0) g/dL 11/13/16 11/13/16 11/14/16 Range/Units 19:54 21:53 00:48 WBC (3.8-10.6) k/uL RBC (4.30-5.90) m/uL Hgb (13.0-17.5) gm/dL Hct (39.0-53.0) % Neutrophils # (1.3-7.7) k/uL ABG pH (7.35-7.45) ABG pCO2 (35-45) mmHg ABG pO2 (83-108) mmHg ABG Total CO2 (19-24) mmol/L ABG O2 Saturation (94-97) % ABG Hematocrit (34.0-46.0) % BUN (9-20) mg/dL Glucose (74-99) mg/dL POC Glucose (mg/dL) 133 H 151 H 133 H (75-99) mg/dL Magnesium (1.6-2.3) mg/dL Total Protein (6.3-8.2) g/dL Albumin (3.5-5.0) g/dL 11/14/16 11/14/16 11/14/16 Range/Units 02:04 04:32 06:01 WBC (3.8-10.6) k/uL RBC (4.30-5.90) m/uL Hgb (13.0-17.5) gm/dL Hct (39.0-53.0) % Neutrophils # (1.3-7.7) k/uL ABG pH (7.35-7.45) ABG pCO2 (35-45) mmHg ABG pO2 (83-108) mmHg ABG Total CO2 (19-24) mmol/L ABG O2 Saturation (94-97) % ABG Hematocrit (34.0-46.0) % BUN (9-20) mg/dL Glucose (74-99) mg/dL POC Glucose (mg/dL) 181 H 152 H 160 H (75-99) mg/dL Magnesium (1.6-2.3) mg/dL Total Protein (6.3-8.2) g/dL Albumin (3.5-5.0) g/dL 11/14/16 11/14/16 11/14/16 Range/Units 06:50 06:50 07:32 WBC 12.9 H (3.8-10.6) k/uL RBC 3.30 L (4.30-5.90) m/uL Hgb 11.3 L (13.0-17.5) gm/dL Hct 32.4 L (39.0-53.0) % Neutrophils # 10.9 H (1.3-7.7) k/uL ABG pH 7.48 H (7.35-7.45) ABG pCO2 34 L (35-45) mmHg ABG pO2 (83-108) mmHg ABG Total CO2 26 H (19-24) mmol/L ABG O2 Saturation (94-97) % ABG Hematocrit (34.0-46.0) % BUN 26 H (9-20) mg/dL Glucose 160 H (74-99) mg/dL POC Glucose (mg/dL) (75-99) mg/dL Magnesium 2.6 H (1.6-2.3) mg/dL Total Protein 5.7 L (6.3-8.2) g/dL Albumin 2.9 L (3.5-5.0) g/dL 11/14/16 11/14/16 11/14/16 Range/Units 07:33 09:46 11:35 WBC (3.8-10.6) k/uL RBC (4.30-5.90) m/uL Hgb (13.0-17.5) gm/dL Hct (39.0-53.0) % Neutrophils # (1.3-7.7) k/uL ABG pH (7.35-7.45) ABG pCO2 (35-45) mmHg ABG pO2 (83-108) mmHg ABG Total CO2 (19-24) mmol/L ABG O2 Saturation (94-97) % ABG Hematocrit (34.0-46.0) % BUN (9-20) mg/dL Glucose (74-99) mg/dL POC Glucose (mg/dL) 149 H 158 H 129 H (75-99) mg/dL Magnesium (1.6-2.3) mg/dL Total Protein (6.3-8.2) g/dL Albumin (3.5-5.0) g/dL 11/14/16 11/14/16 Range/Units 13:57 15:34 WBC (3.8-10.6) k/uL RBC (4.30-5.90) m/uL Hgb (13.0-17.5) gm/dL Hct (39.0-53.0) % Neutrophils # (1.3-7.7) k/uL ABG pH (7.35-7.45) ABG pCO2 (35-45) mmHg ABG pO2 (83-108) mmHg ABG Total CO2 (19-24) mmol/L ABG O2 Saturation (94-97) % ABG Hematocrit (34.0-46.0) % BUN (9-20) mg/dL Glucose (74-99) mg/dL POC Glucose (mg/dL) 150 H 126 H (75-99) mg/dL Magnesium (1.6-2.3) mg/dL Total Protein (6.3-8.2) g/dL Albumin (3.5-5.0) g/dL Assessment and Plan (1) Status post coronary artery bypass graft Status: Acute (2) Family history of heart disease Status: Acute (3) Hyperlipidemia Status: Acute (4) Hypertension Status: Acute (5) Nicotine dependence, chewing tobacco, uncomplicated Status: Acute Plan: Continue current support. Attempts to wean him of the ventilator. Patient is currently on Plavix and aspirin and Lipitor and metoprolol 25 mg by mouth twice a day. Patient will continue current medical therapy. Continue current supportive measures. Will follow
[2016-11-14] MEDS: LACTATED RINGERS 1,000 ML IV SCH (17:21)
[2016-11-14 18:10] LABS: Glucose,Whole Blood 124 mg/dL (75-99)
[2016-11-14] MEDS: LORazepam 2 MG/ML SYRINGE IV PRN ×2 (20:12→23:48)
[2016-11-14] MEDS: HYDROcodone/APAP 5-325MG 1 EACH TAB PO PRN ×2 (20:12→23:48)
[2016-11-14 20:27] LABS: Glucose,Whole Blood 143 mg/dL (75-99)
[2016-11-14] MEDS: SENNOSIDES-DOCUSATE SODIUM 1 EACH TAB PO SCH (20:27)
[2016-11-14 22:39] LABS: Glucose,Whole Blood 131 mg/dL (75-99)
[2016-11-15 00:28] LABS: Glucose,Whole Blood 153 mg/dL (75-99)
[2016-11-15] MEDS: PROPOFOL 500 MG in EMPTY BAG 1 BAG IV SCH ×8 (01:11→23:08)
[2016-11-15] MEDS: LORazepam 2 MG/ML SYRINGE IV PRN ×5 (01:43→21:45)
[2016-11-15 02:29] LABS: Glucose,Whole Blood 148 mg/dL (75-99)
[2016-11-15] MEDS: IPRATROPIUM-ALBUTEROL 3 ML NEB INHALATION SCH ×6 (03:25→23:13)
[2016-11-15] MEDS: HYDROcodone/APAP 5-325MG 1 EACH TAB PO PRN ×3 (03:52→15:49)
[2016-11-15 04:01] LABS: Glucose,Whole Blood 178 mg/dL (75-99)
[2016-11-15 04:07] LABS: Basophils % (A) 0 %; Eosinophils # (A) 0.1 k/uL (0-0.7); Eosinophils % (A) 1 %; HDW 2.32; HGB 10.3 gm/dL (13.0-17.5); Luc # (Auto) 0.14; Luc % (Auto) 1; Lymphocytes # (A) 1.5 k/uL (1.0-4.8); Lymphocytes % (A) 14 %; MCH 32.3 pg (25.0-35.0); MCHC 32.2 g/dL (31.0-37.0); MCV 100.4 fL (80.0-100.0); Macrocytosis Slight; Mean Platelet Volume 6.8; Monocytes # (A) 0.5 k/uL (0-1.0); Monocytes % (A) 5 %; Neutrophils # (A) 8.6 k/uL (1.3-7.7); Neutrophils % (A) 79 %; RBC 3.19 m/uL (4.30-5.90); RDW 14.3 % (11.5-15.5); WBC 10.9 k/uL (3.8-10.6); WBC (Perox) 11.81
[2016-11-15 04:21] LABS: ALT 26 U/L (21-72); AST 23 U/L (17-59); Alkaline Phosphatase 38 U/L (38-126); Anion Gap 7 mmol/L; Blood Urea Nitrogen 31 mg/dL (9-20); Calcium 8.5 mg/dL (8.4-10.2); Carbon Dioxide 27 mmol/L (22-30); Chloride 106 mmol/L (98-107); Glucose 170 mg/dL (74-99); Magnesium 2.5 mg/dL (1.6-2.3); Non-African American GFR(MDRD) >60 (>60 ml/min/1.73 sqM); Potassium 4.8 mmol/L (3.5-5.1); Sodium 140 mmol/L (137-145); Total Bilirubin 0.5 mg/dL (0.2-1.3); Total Protein 5.6 g/dL (6.3-8.2)
[2016-11-15 05:42] LABS: ABG Base Excess 3.1 mmol/L; ABG HCO3 28 mmol/L (21-25); ABG PCO2 44 mmHg (35-45); ABG PO2 84 mmHg (83-108); ABG TCO2 29 mmol/L (19-24)
[2016-11-15 07:40] LABS: Glucose,Whole Blood 166 mg/dL (75-99)
--- NOTE | 2016-11-15 07:40 | XR ---
EXAMINATION TYPE: XR chest 1V portable DATE OF EXAM: 11/15/2016 6:40 AM COMPARISON: 11/14/2016 INDICATION: Endotracheal tube adjustment TECHNIQUE: Single frontal view of the chest is obtained. FINDINGS: The heart size is mildly prominent. The pulmonary vasculature is normal. Mild left lower lobe infiltrate is present. Small left pleural effusion is not excluded. IMPRESSION: 1. Clinical correlation recommended for small left pleural effusion. 2. Endotracheal tube tip located 3 cm above the stephanie.
[2016-11-15] MEDS: BUDESONIDE 1 MG/2 ML NEBU INHALATION SCH ×2 (07:53→19:37)
[2016-11-15] MEDS: ASPIRIN 325 MG TAB PO SCH (08:12)
[2016-11-15] MEDS: PANTOPRAZOLE 40 MG/10 ML VIAL IVP SCH (08:12)
[2016-11-15] MEDS: METOPROLOL TARTRATE 25 MG TAB PO SCH ×2 (08:12→23:06)
[2016-11-15] MEDS: HEPARIN SODIUM,PORCINE 5,000 UNIT/ML 1 ML VIAL SQ SCH ×2 (08:12→15:49)
[2016-11-15] MEDS: ATORVASTATIN 40 MG TAB PO SCH (08:12)
[2016-11-15] MEDS: methylPREDNISolone SOD SUCCI 40 MG/ML 1 ML VIAL IV SCH ×2 (08:12→21:46)
[2016-11-15] MEDS: CHLORHEXIDINE GLUCONATE 15 ML CUP MUCOUS MEM SCH ×2 (08:12→21:46)
[2016-11-15] MEDS: THIAMINE 100 MG TAB PO SCH ×2 (08:13→21:44)
[2016-11-15] MEDS: CLOPIDOGREL 75 MG TAB PO SCH (08:13)
--- NOTE | 2016-11-15 08:52 | P.PN ---
<Nasra Whaley - Last Filed: 11/15/16 08:42> Subjective Principal diagnosis: Coronary artery disease, status post prior stenting to his right coronary artery. Preserved left ventricular function. Hyperlipidemia. Hypertension. ETOH abuse. POD #5 total arterial non-aortic patch off-pump double coronary artery bypass grafting using in situ skeletonized right internal mammary artery to the left anterior descending artery across the anterior midline in situ totally skeletonized left internal mammary artery to the first obtuse marginal artery. Intraoperative transesophageal echocardiogram and epi-aortic scanning. Intraoperative graft flow measurements using the [employer] system Patient had postoperative mucous plugging with increasing oxygen demand requiring bronchoscopy the night of surgery. Bronchial washings negative for bacteria/viruses to date. Pt developed postoperative alcohol withdrawal requiring increased sedation and continued mechanical ventilation. Patient remains sedated on mechanical ventilation. Trial wean yesterday resulted in pt having tachypnea and agitation, wean terminated quickly. Had increased oxygen demands last night, placed on 100% FiO2 per Dr. Toro with orders to wean down. Night nurse decreased propofol and utilized ativan per [facility] protocol. Objective - Vital Signs Vital signs: Vital Signs Temp 98.3 F 11/15/16 04:00 Pulse 73 11/15/16 08:16 Resp 20 11/15/16 08:00 BP 117/65 11/15/16 06:00 Pulse Ox 99 11/15/16 08:00 Intake & Output 11/14/16 11/15/16 11/15/16 18:59 06:59 18:59 Intake Total 8725.592 0990.272 259.934 Output Total 520 600 90 Balance 535.891 689.272 169.934 Weight 97.4 kg 97.3 kg Intake: Intake, IV Titration 415.891 499.272 79.934 Amount Insulin Regular 100 unit 3.167 In Sodium Chloride 0.9% 100 ml @ Per Protocol IV .Q0M [facility] Rx#:[id number] Lactated Ringers 1,000 ml 230 240 40 @ 20 mls/hr IV .Q24H [facility] Rx#:[id number] Propofol 1,000 mg In 82.724 Empty Bag 1 bag @ Titrate IV .Q0M [facility] Rx#: [id number] Propofol 500 mg In Empty 100.000 259.272 39.934 Bag 1 bag @ Titrate IV . Q0M [facility] Rx#:[id number] Tube Feeding 550 700 150 Other 90 90 30 Output: Urine 520 600 90 Other: Voiding Method Indwelling Catheter Indwelling Catheter Indwelling Catheter ABP, PAP, CO, CI - Last Documented Arterial Blood Pressure 133/57 Pulmonary Artery Pressure 46/23 Cardiac Output 6.8 Cardiac Index 3.3 - Constitutional General appearance: Present: no acute distress - Respiratory Details: Lung sounds diminished with ins/exp wheezes present. Resp even/non-labored on mechanical ventilation. Current settings TV 450, FiO2 90%, RR 20, PEEP 10. - Cardiovascular Details: S1/S2 present. Reg rate/rhythm, NSR on telemetry, no events noted overnight. Sternum stable. Heart hugger/teds/scds present. No edema present. - Gastrointestinal Gastrointestinal Comment(s): Abd soft/NT/ND. Active BS x 4 quad. Vital TF @ 50 ml/hr through OGT. - Genitourinary Genitourinary Comment(s): Tay present draining clear, yellow urine. Output 45-60 ml/hr. - Integumentary Integumentary Comment(s): Ant chest incision covered with dry/intact silver dressing. - Psychiatric Psychiatric Comment(s): Sedated on mechanical ventilation. - Allied health notes Allied health notes reviewed: nursing - Labs CBC & Chem 7: 11/15/16 04:00 11/15/16 04:00 Labs: Abnormal Lab Results - Last 24 Hours (Table) 11/10/16 11/10/16 11/10/16 Range/Units 08:53 10:35 11:13 WBC (3.8-10.6) k/uL RBC (4.30-5.90) m/uL Hgb (13.0-17.5) gm/dL Hct (39.0-53.0) % MCV (80.0-100.0) fL Neutrophils # (1.3-7.7) k/uL ABG pH 7.46 H 7.49 H 7.47 H (7.35-7.45) ABG pCO2 32 L 30 L (35-45) mmHg ABG pO2 149 H 149 H (83-108) mmHg ABG HCO3 (21-25) mmol/L ABG Total CO2 25 H (19-24) mmol/L ABG O2 Saturation 98.7 H 99.5 H (94-97) % ABG Hematocrit 31 L (34.0-46.0) % BUN (9-20) mg/dL Glucose (74-99) mg/dL POC Glucose (mg/dL) (75-99) mg/dL Magnesium (1.6-2.3) mg/dL Total Protein (6.3-8.2) g/dL Albumin (3.5-5.0) g/dL 11/10/16 11/10/16 11/14/16 Range/Units 11:59 12:52 09:46 WBC (3.8-10.6) k/uL RBC (4.30-5.90) m/uL Hgb (13.0-17.5) gm/dL Hct (39.0-53.0) % MCV (80.0-100.0) fL Neutrophils # (1.3-7.7) k/uL ABG pH 7.46 H (7.35-7.45) ABG pCO2 34 L (35-45) mmHg ABG pO2 142 H (83-108) mmHg ABG HCO3 (21-25) mmol/L ABG Total CO2 25 H 25 H (19-24) mmol/L ABG O2 Saturation 97.9 H 99.2 H (94-97) % ABG Hematocrit 31 L 30 L (34.0-46.0) % BUN (9-20) mg/dL Glucose (74-99) mg/dL POC Glucose (mg/dL) 158 H (75-99) mg/dL Magnesium (1.6-2.3) mg/dL Total Protein (6.3-8.2) g/dL Albumin (3.5-5.0) g/dL 11/14/16 11/14/16 11/14/16 Range/Units 11:35 13:57 15:34 WBC (3.8-10.6) k/uL RBC (4.30-5.90) m/uL Hgb (13.0-17.5) gm/dL Hct (39.0-53.0) % MCV (80.0-100.0) fL Neutrophils # (1.3-7.7) k/uL ABG pH (7.35-7.45) ABG pCO2 (35-45) mmHg ABG pO2 (83-108) mmHg ABG HCO3 (21-25) mmol/L ABG Total CO2 (19-24) mmol/L ABG O2 Saturation (94-97) % ABG Hematocrit (34.0-46.0) % BUN (9-20) mg/dL Glucose (74-99) mg/dL POC Glucose (mg/dL) 129 H 150 H 126 H (75-99) mg/dL Magnesium (1.6-2.3) mg/dL Total Protein (6.3-8.2) g/dL Albumin (3.5-5.0) g/dL 11/14/16 11/14/16 11/14/16 Range/Units 18:09 20:25 22:37 WBC (3.8-10.6) k/uL RBC (4.30-5.90) m/uL Hgb (13.0-17.5) gm/dL Hct (39.0-53.0) % MCV (80.0-100.0) fL Neutrophils # (1.3-7.7) k/uL ABG pH (7.35-7.45) ABG pCO2 (35-45) mmHg ABG pO2 (83-108) mmHg ABG HCO3 (21-25) mmol/L ABG Total CO2 (19-24) mmol/L ABG O2 Saturation (94-97) % ABG Hematocrit (34.0-46.0) % BUN (9-20) mg/dL Glucose (74-99) mg/dL POC Glucose (mg/dL) 124 H 143 H 131 H (75-99) mg/dL Magnesium (1.6-2.3) mg/dL Total Protein (6.3-8.2) g/dL Albumin (3.5-5.0) g/dL 11/15/16 11/15/16 11/15/16 Range/Units 00:27 02:27 03:59 WBC (3.8-10.6) k/uL RBC (4.30-5.90) m/uL Hgb (13.0-17.5) gm/dL Hct (39.0-53.0) % MCV (80.0-100.0) fL Neutrophils # (1.3-7.7) k/uL ABG pH (7.35-7.45) ABG pCO2 (35-45) mmHg ABG pO2 (83-108) mmHg ABG HCO3 (21-25) mmol/L ABG Total CO2 (19-24) mmol/L ABG O2 Saturation (94-97) % ABG Hematocrit (34.0-46.0) % BUN (9-20) mg/dL Glucose (74-99) mg/dL POC Glucose (mg/dL) 153 H 148 H 178 H (75-99) mg/dL Magnesium (1.6-2.3) mg/dL Total Protein (6.3-8.2) g/dL Albumin (3.5-5.0) g/dL 11/15/16 11/15/16 11/15/16 Range/Units 04:00 04:00 05:01 WBC 10.9 H (3.8-10.6) k/uL RBC 3.19 L (4.30-5.90) m/uL Hgb 10.3 L (13.0-17.5) gm/dL Hct 32.0 L (39.0-53.0) % MCV 100.4 H (80.0-100.0) fL Neutrophils # 8.6 H (1.3-7.7) k/uL ABG pH (7.35-7.45) ABG pCO2 (35-45) mmHg ABG pO2 (83-108) mmHg ABG HCO3 28 H (21-25) mmol/L ABG Total CO2 29 H (19-24) mmol/L ABG O2 Saturation (94-97) % ABG Hematocrit (34.0-46.0) % BUN 31 H (9-20) mg/dL Glucose 170 H (74-99) mg/dL POC Glucose (mg/dL) (75-99) mg/dL Magnesium 2.5 H (1.6-2.3) mg/dL Total Protein 5.6 L (6.3-8.2) g/dL Albumin 2.9 L (3.5-5.0) g/dL 11/15/16 Range/Units 07:37 WBC (3.8-10.6) k/uL RBC (4.30-5.90) m/uL Hgb (13.0-17.5) gm/dL Hct (39.0-53.0) % MCV (80.0-100.0) fL Neutrophils # (1.3-7.7) k/uL ABG pH (7.35-7.45) ABG pCO2 (35-45) mmHg ABG pO2 (83-108) mmHg ABG HCO3 (21-25) mmol/L ABG Total CO2 (19-24) mmol/L ABG O2 Saturation (94-97) % ABG Hematocrit (34.0-46.0) % BUN (9-20) mg/dL Glucose (74-99) mg/dL POC Glucose (mg/dL) 166 H (75-99) mg/dL Magnesium (1.6-2.3) mg/dL Total Protein (6.3-8.2) g/dL Albumin (3.5-5.0) g/dL - Imaging and Cardiology Chest x-ray: report reviewed, image reviewed Assessment and Plan (1) Status post coronary artery bypass graft Status: Acute (2) Coronary artery disease Status: Acute (3) Family history of heart disease Status: Acute (4) History of PTCA Status: Acute (5) Hyperlipidemia Status: Acute (6) Hypertension Status: Acute (7) Nicotine dependence, chewing tobacco, uncomplicated Status: Acute Plan: 1. Continue aspirin, Lipitor, Plavix, heparin, Lopressor, lisinopril. 2. Ventilator management per pulmonology, wean O2 as tolerated. 3. Insulin/diabetic management per primary care service. 4. Continue [facility] protocol for alcohol withdrawal. 5. Daily labs, chest x-rays. 6. GI/DVT prophylaxis. 7. More recommendations as patient progresses. Time with Patient: Greater than 30 <Thaddeus Kessler - Last Filed: 11/15/16 16:31> Objective - Vital Signs Vital signs: Vital Signs Temp 98.3 F 11/15/16 16:00 Pulse 55 L 11/15/16 16:00 Resp 20 11/15/16 16:00 BP 116/61 11/15/16 16:00 Pulse Ox 96 11/15/16 16:00 Intake & Output 11/14/16 11/15/16 11/15/16 18:59 06:59 18:59 Intake Total 9505.353 5521.272 1179.934 Output Total 520 600 665 Balance 535.891 689.272 514.934 Weight 97.4 kg 97.3 kg 97.3 kg Intake: Intake, IV Titration 415.891 499.272 339.934 Amount Insulin Regular 100 unit 3.167 0 In Sodium Chloride 0.9% 100 ml @ Per Protocol IV .Q0M [facility] Rx#:[id number] Lactated Ringers 1,000 ml 230 240 200 @ 20 mls/hr IV .Q24H [facility] Rx#:[id number] Propofol 1,000 mg In 82.724 Empty Bag 1 bag @ Titrate IV .Q0M [facility] Rx#: [id number] Propofol 500 mg In Empty 100.000 259.272 139.934 Bag 1 bag @ Titrate IV . Q0M [facility] Rx#:[id number] Tube Feeding 550 700 750 Other 90 90 90 Output: Urine 520 600 665 Other: Voiding Method Indwelling Catheter Indwelling Catheter Indwelling Catheter ABP, PAP, CO, CI - Last Documented Arterial Blood Pressure 89/63 Pulmonary Artery Pressure 46/23 Cardiac Output 6.8 Cardiac Index 3.3 - Labs CBC & Chem 7: 11/15/16 04:00 11/15/16 04:00 Labs: Abnormal Lab Results - Last 24 Hours (Table) 11/14/16 11/14/16 11/14/16 Range/Units 18:09 20:25 22:37 WBC (3.8-10.6) k/uL RBC (4.30-5.90) m/uL Hgb (13.0-17.5) gm/dL Hct (39.0-53.0) % MCV (80.0-100.0) fL Neutrophils # (1.3-7.7) k/uL ABG pO2 (83-108) mmHg ABG HCO3 (21-25) mmol/L ABG Total CO2 (19-24) mmol/L BUN (9-20) mg/dL Glucose (74-99) mg/dL POC Glucose (mg/dL) 124 H 143 H 131 H (75-99) mg/dL Magnesium (1.6-2.3) mg/dL Total Protein (6.3-8.2) g/dL Albumin (3.5-5.0) g/dL 11/15/16 11/15/16 11/15/16 Range/Units 00:27 02:27 03:59 WBC (3.8-10.6) k/uL RBC (4.30-5.90) m/uL Hgb (13.0-17.5) gm/dL Hct (39.0-53.0) % MCV (80.0-100.0) fL Neutrophils # (1.3-7.7) k/uL ABG pO2 (83-108) mmHg ABG HCO3 (21-25) mmol/L ABG Total CO2 (19-24) mmol/L BUN (9-20) mg/dL Glucose (74-99) mg/dL POC Glucose (mg/dL) 153 H 148 H 178 H (75-99) mg/dL Magnesium (1.6-2.3) mg/dL Total Protein (6.3-8.2) g/dL Albumin (3.5-5.0) g/dL 11/15/16 11/15/16 11/15/16 Range/Units 04:00 04:00 05:01 WBC 10.9 H (3.8-10.6) k/uL RBC 3.19 L (4.30-5.90) m/uL Hgb 10.3 L (13.0-17.5) gm/dL Hct 32.0 L (39.0-53.0) % MCV 100.4 H (80.0-100.0) fL Neutrophils # 8.6 H (1.3-7.7) k/uL ABG pO2 (83-108) mmHg ABG HCO3 28 H (21-25) mmol/L ABG Total CO2 29 H (19-24) mmol/L BUN 31 H (9-20) mg/dL Glucose 170 H (74-99) mg/dL POC Glucose (mg/dL) (75-99) mg/dL Magnesium 2.5 H (1.6-2.3) mg/dL Total Protein 5.6 L (6.3-8.2) g/dL Albumin 2.9 L (3.5-5.0) g/dL 11/15/16 11/15/16 11/15/16 Range/Units 07:37 10:24 10:56 WBC (3.8-10.6) k/uL RBC (4.30-5.90) m/uL Hgb (13.0-17.5) gm/dL Hct (39.0-53.0) % MCV (80.0-100.0) fL Neutrophils # (1.3-7.7) k/uL ABG pO2 77 L (83-108) mmHg ABG HCO3 26 H (21-25) mmol/L ABG Total CO2 27 H (19-24) mmol/L BUN (9-20) mg/dL Glucose (74-99) mg/dL POC Glucose (mg/dL) 166 H 148 H (75-99) mg/dL Magnesium (1.6-2.3) mg/dL Total Protein (6.3-8.2) g/dL Albumin (3.5-5.0) g/dL 11/15/16 11/15/16 11/15/16 Range/Units 12:44 14:14 16:08 WBC (3.8-10.6) k/uL RBC (4.30-5.90) m/uL Hgb (13.0-17.5) gm/dL Hct (39.0-53.0) % MCV (80.0-100.0) fL Neutrophils # (1.3-7.7) k/uL ABG pO2 (83-108) mmHg ABG HCO3 (21-25) mmol/L ABG Total CO2 (19-24) mmol/L BUN (9-20) mg/dL Glucose (74-99) mg/dL POC Glucose (mg/dL) 141 H 149 H 156 H (75-99) mg/dL Magnesium (1.6-2.3) mg/dL Total Protein (6.3-8.2) g/dL Albumin (3.5-5.0) g/dL Assessment and Plan Plan: The patient was seen and examined. I agree with the above assessment and plan. He is currently on CIWA protocol secondary to alcohol withdrawal.he remains ventilated on 10 of PEEP and 90% FiO2. His chest x-ray appears to be relatively clear. From a hemodynamic standpoint he is stable. He is receiving tube feeds. His creatinine is normal and he continues to make urine. His white blood cell count appears to be trending down. We will continue with supportive care for now and wean the ventilator as tolerated.
--- NOTE | 2016-11-15 09:22 | P.PN ---
Subjective Progress note dated 11/15/2016 This is a 61-year-old male who is status post bypass grafting. He is postop day #5. He remains intubated on mechanical ventilator. His vent settings include the assist control mode rate is 16 to be increased to 20 a tidal [place] of 500 be decreased to 450 and FiO2 of 90% and a PEEP of 5 which will be increased to 10. His arterial blood gases on those settings show a pO2 of only 84 pCO2 of 45 and appears to some 0.40. This was on 90%. He is getting lactated Ringer's at 20 mL an hour the Diprovan at 25 mics per kilogram per minute and insulin drip at 1 unit per hour and vital HP 50 with a goal of 50. Chest x-rays essentially unchanged. He does have a small left pleural effusion. Objective - Vital Signs Vital signs: Vital Signs Temp 98.9 F 11/15/16 09:00 Pulse 71 11/15/16 09:00 Resp 20 11/15/16 09:00 BP 117/65 11/15/16 06:00 Pulse Ox 93 L 11/15/16 09:00 Intake & Output 11/14/16 11/15/16 11/15/16 18:59 06:59 18:59 Intake Total 5722.720 9779.272 379.934 Output Total 520 600 180 Balance 535.891 689.272 199.934 Weight 97.4 kg 97.3 kg Intake: Intake, IV Titration 415.891 499.272 99.934 Amount Insulin Regular 100 unit 3.167 In Sodium Chloride 0.9% 100 ml @ Per Protocol IV .Q0M [facility] Rx#:[id number] Lactated Ringers 1,000 ml 230 240 60 @ 20 mls/hr IV .Q24H [facility] Rx#:[id number] Propofol 1,000 mg In 82.724 Empty Bag 1 bag @ Titrate IV .Q0M [facility] Rx#: [id number] Propofol 500 mg In Empty 100.000 259.272 39.934 Bag 1 bag @ Titrate IV . Q0M [facility] Rx#:[id number] Tube Feeding 550 700 250 Other 90 90 30 Output: Urine 520 600 180 Other: Voiding Method Indwelling Catheter Indwelling Catheter Indwelling Catheter ABP, PAP, CO, CI - Last Documented Arterial Blood Pressure 125/49 Pulmonary Artery Pressure 46/23 Cardiac Output 6.8 Cardiac Index 3.3 - Exam Now no acute distress. The patient remains intubated and sedated. HEENT examination is grossly unremarkable. Mucous members are moist. Endotracheal and NG tube noted. Neck supple. Full range of motion. No adenopathy or thyromegaly. Neck veins are flat. Cardiovascular examination reveals regular rhythm rate. S1-S2 normal. No distinct murmur noted. Lungs reveal diminished breath sounds throughout. A few scattered crackles. A few rhonchi are noted. Abdomen soft bowel sounds are heard. Extremities are intact. There is mild edema. Skin without rash. Neurologic examination cannot be adequately performed. - Labs CBC & Chem 7: 11/15/16 04:00 11/15/16 04:00 Labs: Abnormal Lab Results - Last 24 Hours (Table) 11/10/16 11/10/16 11/10/16 Range/Units 08:53 10:35 11:13 WBC (3.8-10.6) k/uL RBC (4.30-5.90) m/uL Hgb (13.0-17.5) gm/dL Hct (39.0-53.0) % MCV (80.0-100.0) fL Neutrophils # (1.3-7.7) k/uL ABG pH 7.46 H 7.49 H 7.47 H (7.35-7.45) ABG pCO2 32 L 30 L (35-45) mmHg ABG pO2 149 H 149 H (83-108) mmHg ABG HCO3 (21-25) mmol/L ABG Total CO2 25 H (19-24) mmol/L ABG O2 Saturation 98.7 H 99.5 H (94-97) % ABG Hematocrit 31 L (34.0-46.0) % BUN (9-20) mg/dL Glucose (74-99) mg/dL POC Glucose (mg/dL) (75-99) mg/dL Magnesium (1.6-2.3) mg/dL Total Protein (6.3-8.2) g/dL Albumin (3.5-5.0) g/dL 11/10/16 11/10/16 11/14/16 Range/Units 11:59 12:52 09:46 WBC (3.8-10.6) k/uL RBC (4.30-5.90) m/uL Hgb (13.0-17.5) gm/dL Hct (39.0-53.0) % MCV (80.0-100.0) fL Neutrophils # (1.3-7.7) k/uL ABG pH 7.46 H (7.35-7.45) ABG pCO2 34 L (35-45) mmHg ABG pO2 142 H (83-108) mmHg ABG HCO3 (21-25) mmol/L ABG Total CO2 25 H 25 H (19-24) mmol/L ABG O2 Saturation 97.9 H 99.2 H (94-97) % ABG Hematocrit 31 L 30 L (34.0-46.0) % BUN (9-20) mg/dL Glucose (74-99) mg/dL POC Glucose (mg/dL) 158 H (75-99) mg/dL Magnesium (1.6-2.3) mg/dL Total Protein (6.3-8.2) g/dL Albumin (3.5-5.0) g/dL 11/14/16 11/14/16 11/14/16 Range/Units 11:35 13:57 15:34 WBC (3.8-10.6) k/uL RBC (4.30-5.90) m/uL Hgb (13.0-17.5) gm/dL Hct (39.0-53.0) % MCV (80.0-100.0) fL Neutrophils # (1.3-7.7) k/uL ABG pH (7.35-7.45) ABG pCO2 (35-45) mmHg ABG pO2 (83-108) mmHg ABG HCO3 (21-25) mmol/L ABG Total CO2 (19-24) mmol/L ABG O2 Saturation (94-97) % ABG Hematocrit (34.0-46.0) % BUN (9-20) mg/dL Glucose (74-99) mg/dL POC Glucose (mg/dL) 129 H 150 H 126 H (75-99) mg/dL Magnesium (1.6-2.3) mg/dL Total Protein (6.3-8.2) g/dL Albumin (3.5-5.0) g/dL 11/14/16 11/14/16 11/14/16 Range/Units 18:09 20:25 22:37 WBC (3.8-10.6) k/uL RBC (4.30-5.90) m/uL Hgb (13.0-17.5) gm/dL Hct (39.0-53.0) % MCV (80.0-100.0) fL Neutrophils # (1.3-7.7) k/uL ABG pH (7.35-7.45) ABG pCO2 (35-45) mmHg ABG pO2 (83-108) mmHg ABG HCO3 (21-25) mmol/L ABG Total CO2 (19-24) mmol/L ABG O2 Saturation (94-97) % ABG Hematocrit (34.0-46.0) % BUN (9-20) mg/dL Glucose (74-99) mg/dL POC Glucose (mg/dL) 124 H 143 H 131 H (75-99) mg/dL Magnesium (1.6-2.3) mg/dL Total Protein (6.3-8.2) g/dL Albumin (3.5-5.0) g/dL 11/15/16 11/15/16 11/15/16 Range/Units 00:27 02:27 03:59 WBC (3.8-10.6) k/uL RBC (4.30-5.90) m/uL Hgb (13.0-17.5) gm/dL Hct (39.0-53.0) % MCV (80.0-100.0) fL Neutrophils # (1.3-7.7) k/uL ABG pH (7.35-7.45) ABG pCO2 (35-45) mmHg ABG pO2 (83-108) mmHg ABG HCO3 (21-25) mmol/L ABG Total CO2 (19-24) mmol/L ABG O2 Saturation (94-97) % ABG Hematocrit (34.0-46.0) % BUN (9-20) mg/dL Glucose (74-99) mg/dL POC Glucose (mg/dL) 153 H 148 H 178 H (75-99) mg/dL Magnesium (1.6-2.3) mg/dL Total Protein (6.3-8.2) g/dL Albumin (3.5-5.0) g/dL 11/15/16 11/15/16 11/15/16 Range/Units 04:00 04:00 05:01 WBC 10.9 H (3.8-10.6) k/uL RBC 3.19 L (4.30-5.90) m/uL Hgb 10.3 L (13.0-17.5) gm/dL Hct 32.0 L (39.0-53.0) % MCV 100.4 H (80.0-100.0) fL Neutrophils # 8.6 H (1.3-7.7) k/uL ABG pH (7.35-7.45) ABG pCO2 (35-45) mmHg ABG pO2 (83-108) mmHg ABG HCO3 28 H (21-25) mmol/L ABG Total CO2 29 H (19-24) mmol/L ABG O2 Saturation (94-97) % ABG Hematocrit (34.0-46.0) % BUN 31 H (9-20) mg/dL Glucose 170 H (74-99) mg/dL POC Glucose (mg/dL) (75-99) mg/dL Magnesium 2.5 H (1.6-2.3) mg/dL Total Protein 5.6 L (6.3-8.2) g/dL Albumin 2.9 L (3.5-5.0) g/dL 11/15/16 Range/Units 07:37 WBC (3.8-10.6) k/uL RBC (4.30-5.90) m/uL Hgb (13.0-17.5) gm/dL Hct (39.0-53.0) % MCV (80.0-100.0) fL Neutrophils # (1.3-7.7) k/uL ABG pH (7.35-7.45) ABG pCO2 (35-45) mmHg ABG pO2 (83-108) mmHg ABG HCO3 (21-25) mmol/L ABG Total CO2 (19-24) mmol/L ABG O2 Saturation (94-97) % ABG Hematocrit (34.0-46.0) % BUN (9-20) mg/dL Glucose (74-99) mg/dL POC Glucose (mg/dL) 166 H (75-99) mg/dL Magnesium (1.6-2.3) mg/dL Total Protein (6.3-8.2) g/dL Albumin (3.5-5.0) g/dL Assessment and Plan (1) Postoperative respiratory failure Status: Acute (2) Status post coronary artery bypass graft Status: Acute (3) Coronary artery disease Status: Acute (4) History of PTCA Status: Acute (5) Hyperlipidemia Status: Acute (6) Hypertension Status: Acute (7) Nicotine dependence, chewing tobacco, uncomplicated Status: Acute Plan: Plan dated 11/15/2016 The patient's vent will be changed a bit. We'll bump his rate up from 16-20. We'll decrease the tidal volume from 500 to 450. We'll increase the PEEP of 5- 10. I've asked respiratory to try to titrate down the FiO2. Hopefully this will happen once we increase the PEEP from 5-10. We'll continue to follow closely. X-rays labs medications are all reviewed. Prognosis is guarded. Time with Patient: Greater than 30
[2016-11-15] MEDS: LISINOPRIL 5 MG TAB PO SCH (09:25)
[2016-11-15 10:26] LABS: Glucose,Whole Blood 148 mg/dL (75-99)
[2016-11-15 11:04] LABS: ABG Base Excess 2.3 mmol/L; ABG HCO3 26 mmol/L (21-25); ABG PCO2 38 mmHg (35-45); ABG PH 7.45 (7.35-7.45); ABG PO2 77 mmHg (83-108); ABG TCO2 27 mmol/L (19-24)
--- NOTE | 2016-11-15 12:41 | P.PN ---
Subjective Date of service 11/14/2016. Progress note being dictated for Dr. Yoder. Interval history: This is a 61-year-old gentleman status post CABG, status post bronchoscopy related to significant mucus plugging, failure to wean, suspected EtOH abuse with early DTs and multiple other medical issues. Preliminary Bronchoscopy cultures negative.Unsuccessful prior weaning trials as patient becomes significantly hypertensive, tachycardic. Vent dependent, maintained on FiO2 of 60%/5 of PEEP. Continues on nebulized bronchodilators, IV steroids .Chest x-ray reporting mild pulmonary vascular congestion, small left pleural effusion, bibasilar atelectasis .Receiving vital HP at goal of 50ml/ hr.Maintained on insulin, Diprovan drips and CIWA protocol. Brain CT nonacute. Objective - Vital Signs Vital signs: Vital Signs Temp 98.6 F 11/14/16 16:00 Pulse 73 11/14/16 18:00 Resp 19 11/14/16 18:00 BP 119/68 11/14/16 18:00 Pulse Ox 96 11/14/16 18:00 Intake & Output 11/13/16 11/14/16 11/14/16 18:59 06:59 18:59 Intake Total 3410.953 8268.154 1055.891 Output Total 396 506 520 Balance 762.628 927.154 535.891 Weight 97.4 kg 97.4 kg Intake: Intake, IV Titration 538.628 553.154 415.891 Amount Insulin Regular 100 unit 21.378 10.317 3.167 In Sodium Chloride 0.9% 100 ml @ Per Protocol IV .Q0M [facility] Rx#:[id number] Lactated Ringers 1,000 ml 320 260 230 @ 20 mls/hr IV .Q24H [facility] Rx#:[id number] Propofol 1,000 mg In 82.724 Empty Bag 1 bag @ Titrate IV .Q0M [facility] Rx#: [id number] Propofol 500 mg In Empty 197.25 282.837 Bag 1 bag @ Titrate IV . Q0M [facility] Rx#:[id number] Propofol 500 mg In Empty 100.000 Bag 1 bag @ Titrate IV . Q0M [facility] Rx#:[id number] Tube Feeding 560 790 550 Other 60 90 90 Output: Chest Tube Drainage 4 Left Lateral Chest 4 Urine 392 506 520 Other: Voiding Method Indwelling Catheter Indwelling Catheter Indwelling Catheter # Bowel Movements 1 1 ABP, PAP, CO, CI - Last Documented Arterial Blood Pressure 148/59 Pulmonary Artery Pressure 46/23 Cardiac Output 6.8 Cardiac Index 3.3 - Exam PHYSICAL EXAM: VITAL SIGNS: As above GENERAL: [Sedated, intubated HEENT: [Pupils equal, conjunctiva normal.] NECK: [Supple, no JVD] RESPIRATORY EFFORT:[Normal] LUNGS: [Diminished throughout, bibasilar crackles] CARDIOVASCULAR[regular S1 and S2, no murmurs rubs or gallops, mild edema] GI: [Abdomen soft, nontender, positive bowel sounds.] PSYCH: [Alert and oriented -3, mood and affect normal.] NEURO: Unable to assess, patient sedated on Diprovan and vent dependent Microbiology 11/10/16 16:40 Lung Aspirate - Right Gram Stain - Final 11/10/16 16:40 Lung Aspirate - Right Bronchial Washings Culture - Final 11/10/16 16:40 Lung - Right Acid Fast Bacilli Smear - Final 11/10/16 16:40 Lung - Right Acid Fast Bacilli Culture - Preliminary 11/10/16 16:40 Lung - Right Fungal Culture - Preliminary - Labs CBC & Chem 7: 11/15/16 04:00 11/15/16 04:00 Labs: Abnormal Lab Results - Last 24 Hours (Table) 11/10/16 11/10/16 11/10/16 Range/Units 08:53 10:35 11:13 WBC (3.8-10.6) k/uL RBC (4.30-5.90) m/uL Hgb (13.0-17.5) gm/dL Hct (39.0-53.0) % Neutrophils # (1.3-7.7) k/uL ABG pH 7.46 H 7.49 H 7.47 H (7.35-7.45) ABG pCO2 32 L 30 L (35-45) mmHg ABG pO2 149 H 149 H (83-108) mmHg ABG Total CO2 25 H (19-24) mmol/L ABG O2 Saturation 98.7 H 99.5 H (94-97) % ABG Hematocrit 31 L (34.0-46.0) % BUN (9-20) mg/dL Glucose (74-99) mg/dL POC Glucose (mg/dL) (75-99) mg/dL Magnesium (1.6-2.3) mg/dL Total Protein (6.3-8.2) g/dL Albumin (3.5-5.0) g/dL 11/10/16 11/10/16 11/13/16 Range/Units 11:59 12:52 19:54 WBC (3.8-10.6) k/uL RBC (4.30-5.90) m/uL Hgb (13.0-17.5) gm/dL Hct (39.0-53.0) % Neutrophils # (1.3-7.7) k/uL ABG pH 7.46 H (7.35-7.45) ABG pCO2 34 L (35-45) mmHg ABG pO2 142 H (83-108) mmHg ABG Total CO2 25 H 25 H (19-24) mmol/L ABG O2 Saturation 97.9 H 99.2 H (94-97) % ABG Hematocrit 31 L 30 L (34.0-46.0) % BUN (9-20) mg/dL Glucose (74-99) mg/dL POC Glucose (mg/dL) 133 H (75-99) mg/dL Magnesium (1.6-2.3) mg/dL Total Protein (6.3-8.2) g/dL Albumin (3.5-5.0) g/dL 11/13/16 11/14/16 11/14/16 Range/Units 21:53 00:48 02:04 WBC (3.8-10.6) k/uL RBC (4.30-5.90) m/uL Hgb (13.0-17.5) gm/dL Hct (39.0-53.0) % Neutrophils # (1.3-7.7) k/uL ABG pH (7.35-7.45) ABG pCO2 (35-45) mmHg ABG pO2 (83-108) mmHg ABG Total CO2 (19-24) mmol/L ABG O2 Saturation (94-97) % ABG Hematocrit (34.0-46.0) % BUN (9-20) mg/dL Glucose (74-99) mg/dL POC Glucose (mg/dL) 151 H 133 H 181 H (75-99) mg/dL Magnesium (1.6-2.3) mg/dL Total Protein (6.3-8.2) g/dL Albumin (3.5-5.0) g/dL 11/14/16 11/14/16 11/14/16 Range/Units 04:32 06:01 06:50 WBC 12.9 H (3.8-10.6) k/uL RBC 3.30 L (4.30-5.90) m/uL Hgb 11.3 L (13.0-17.5) gm/dL Hct 32.4 L (39.0-53.0) % Neutrophils # 10.9 H (1.3-7.7) k/uL ABG pH (7.35-7.45) ABG pCO2 (35-45) mmHg ABG pO2 (83-108) mmHg ABG Total CO2 (19-24) mmol/L ABG O2 Saturation (94-97) % ABG Hematocrit (34.0-46.0) % BUN (9-20) mg/dL Glucose (74-99) mg/dL POC Glucose (mg/dL) 152 H 160 H (75-99) mg/dL Magnesium (1.6-2.3) mg/dL Total Protein (6.3-8.2) g/dL Albumin (3.5-5.0) g/dL 11/14/16 11/14/16 11/14/16 Range/Units 06:50 07:32 07:33 WBC (3.8-10.6) k/uL RBC (4.30-5.90) m/uL Hgb (13.0-17.5) gm/dL Hct (39.0-53.0) % Neutrophils # (1.3-7.7) k/uL ABG pH 7.48 H (7.35-7.45) ABG pCO2 34 L (35-45) mmHg ABG pO2 (83-108) mmHg ABG Total CO2 26 H (19-24) mmol/L ABG O2 Saturation (94-97) % ABG Hematocrit (34.0-46.0) % BUN 26 H (9-20) mg/dL Glucose 160 H (74-99) mg/dL POC Glucose (mg/dL) 149 H (75-99) mg/dL Magnesium 2.6 H (1.6-2.3) mg/dL Total Protein 5.7 L (6.3-8.2) g/dL Albumin 2.9 L (3.5-5.0) g/dL 11/14/16 11/14/16 11/14/16 Range/Units 09:46 11:35 13:57 WBC (3.8-10.6) k/uL RBC (4.30-5.90) m/uL Hgb (13.0-17.5) gm/dL Hct (39.0-53.0) % Neutrophils # (1.3-7.7) k/uL ABG pH (7.35-7.45) ABG pCO2 (35-45) mmHg ABG pO2 (83-108) mmHg ABG Total CO2 (19-24) mmol/L ABG O2 Saturation (94-97) % ABG Hematocrit (34.0-46.0) % BUN (9-20) mg/dL Glucose (74-99) mg/dL POC Glucose (mg/dL) 158 H 129 H 150 H (75-99) mg/dL Magnesium (1.6-2.3) mg/dL Total Protein (6.3-8.2) g/dL Albumin (3.5-5.0) g/dL 11/14/16 11/14/16 Range/Units 15:34 18:09 WBC (3.8-10.6) k/uL RBC (4.30-5.90) m/uL Hgb (13.0-17.5) gm/dL Hct (39.0-53.0) % Neutrophils # (1.3-7.7) k/uL ABG pH (7.35-7.45) ABG pCO2 (35-45) mmHg ABG pO2 (83-108) mmHg ABG Total CO2 (19-24) mmol/L ABG O2 Saturation (94-97) % ABG Hematocrit (34.0-46.0) % BUN (9-20) mg/dL Glucose (74-99) mg/dL POC Glucose (mg/dL) 126 H 124 H (75-99) mg/dL Magnesium (1.6-2.3) mg/dL Total Protein (6.3-8.2) g/dL Albumin (3.5-5.0) g/dL Assessment and Plan Plan: 1. CAD, [Status post CABG]. 2. [Acute hypoxic respiratory failure secondary to the above]. 3. [Exacerbation COPD]. 4. [Possible early DTs, on CIWA protocol]. 5. Right upper and lower lobe collapse secondary to mucus plugging status post bronchoscopy]. 6. [Hypertension]. 7. []. Plan: Continue on current medication regime ,monitoring and symptomatic treatment. Maintain CIWA protocol. Weaning trials as per pulmonary/ construction management assistant. Tube feeds at goal, maintain insulin drip. GI and DVT prophylaxis in place. Further recommendations to follow. The impression and plan of care has been dictated as directed. : I performed a H&P examination of this patient and discussed the same with the dictator. I agree with the dictator's note. Any additional findings/opinions/ etc. will be noted.
[2016-11-15 12:46] LABS: Glucose,Whole Blood 141 mg/dL (75-99)
[2016-11-15] MEDS: MULTIVITAMINS, THERA LIQUID 237 ML BOTTLE PO SCH (12:47)
[2016-11-15] MEDS: LACTATED RINGERS 1,000 ML IV SCH (12:48)
[2016-11-15 14:17] LABS: Glucose,Whole Blood 149 mg/dL (75-99)
[2016-11-15] MEDS: INSULIN REGULAR 100 UNIT in SODIUM CHLORIDE 0.9% 100 ML IV SCH (15:06)
[2016-11-15 16:10] LABS: Glucose,Whole Blood 156 mg/dL (75-99)
[2016-11-15 18:12] LABS: Glucose,Whole Blood 135 mg/dL (75-99)
[2016-11-15 20:15] LABS: Glucose,Whole Blood 141 mg/dL (75-99)
--- NOTE | 2016-11-15 20:33 | P.PN ---
Subjective Principal diagnosis: Status post bypass surgery, respiratory failure This is 60-year-old gentleman is status post prior to coronary bypass rigidity, postop day #5. Attempts to wean him up respirator have resulted in agitation and tachycardia. Patient apparently also showed evidence of alcohol withdrawal. Currently is back on full respiratory support and at times will be made for slow weaning process. Hemodynamically relatively stable. [place] [address]. Respiration of 20. Pulse is 71. chest x-ray shows left-sided pleural effusion. His renal function appear to be maintaining and patient has good urinary output. Lab values showed hemoglobin 10.3. His creatinine is 0.7 Objective - Vital Signs Vital signs: Vital Signs Temp 98.3 F 11/15/16 16:00 Pulse 73 11/15/16 20:03 Resp 20 11/15/16 19:00 BP 109/68 11/15/16 19:00 Pulse Ox 94 L 11/15/16 19:00 Intake & Output 11/15/16 11/15/16 11/16/16 06:59 18:59 06:59 Intake Total 5838.409 6524.175 70 Output Total 600 815 Balance 689.272 548.175 70 Weight 97.3 kg 97.3 kg Intake: Intake, IV Titration 499.272 423.175 20 Amount Insulin Regular 100 unit 0 In Sodium Chloride 0.9% 100 ml @ Per Protocol IV .Q0M [facility] Rx#:[id number] Lactated Ringers 1,000 ml 240 240 20 @ 20 mls/hr IV .Q24H [facility] Rx#:[id number] Propofol 500 mg In Empty 259.272 183.175 Bag 1 bag @ Titrate IV . Q0M [facility] Rx#:[id number] Tube Feeding 700 850 50 Other 90 90 Output: Urine 600 815 Other: Voiding Method Indwelling Catheter Indwelling Catheter ABP, PAP, CO, CI - Last Documented Arterial Blood Pressure 87/58 Pulmonary Artery Pressure 46/23 Cardiac Output 6.8 Cardiac Index 3.3 - Exam GENERAL EXAM: Patient is intubated and sedated HEENT: Normocephalic. NECK: No masses, no nuchal rigidity. CHEST: No chest wall deformity. LUNGS: Breath sounds at bases HEART: S1 and S2 normal with no audible mumurs or gallops. Regular rhythm, femorals equal on both sides.. ABDOMEN: No hepatosplenomegaly, normal bowel sounds, no guarding or rigidity. SKIN: No rashes CENTRAL NERVOUS SYSTEM: Sedated EXTREMITIES: No cyanosis, clubbing or edema. - Labs CBC & Chem 7: 11/15/16 04:00 11/15/16 04:00 Labs: Abnormal Lab Results - Last 24 Hours (Table) 11/14/16 11/15/16 11/15/16 Range/Units 22:37 00:27 02:27 WBC (3.8-10.6) k/uL RBC (4.30-5.90) m/uL Hgb (13.0-17.5) gm/dL Hct (39.0-53.0) % MCV (80.0-100.0) fL Neutrophils # (1.3-7.7) k/uL ABG pO2 (83-108) mmHg ABG HCO3 (21-25) mmol/L ABG Total CO2 (19-24) mmol/L BUN (9-20) mg/dL Glucose (74-99) mg/dL POC Glucose (mg/dL) 131 H 153 H 148 H (75-99) mg/dL Magnesium (1.6-2.3) mg/dL Total Protein (6.3-8.2) g/dL Albumin (3.5-5.0) g/dL 11/15/16 11/15/16 11/15/16 Range/Units 03:59 04:00 04:00 WBC 10.9 H (3.8-10.6) k/uL RBC 3.19 L (4.30-5.90) m/uL Hgb 10.3 L (13.0-17.5) gm/dL Hct 32.0 L (39.0-53.0) % MCV 100.4 H (80.0-100.0) fL Neutrophils # 8.6 H (1.3-7.7) k/uL ABG pO2 (83-108) mmHg ABG HCO3 (21-25) mmol/L ABG Total CO2 (19-24) mmol/L BUN 31 H (9-20) mg/dL Glucose 170 H (74-99) mg/dL POC Glucose (mg/dL) 178 H (75-99) mg/dL Magnesium 2.5 H (1.6-2.3) mg/dL Total Protein 5.6 L (6.3-8.2) g/dL Albumin 2.9 L (3.5-5.0) g/dL 11/15/16 11/15/16 11/15/16 Range/Units 05:01 07:37 10:24 WBC (3.8-10.6) k/uL RBC (4.30-5.90) m/uL Hgb (13.0-17.5) gm/dL Hct (39.0-53.0) % MCV (80.0-100.0) fL Neutrophils # (1.3-7.7) k/uL ABG pO2 (83-108) mmHg ABG HCO3 28 H (21-25) mmol/L ABG Total CO2 29 H (19-24) mmol/L BUN (9-20) mg/dL Glucose (74-99) mg/dL POC Glucose (mg/dL) 166 H 148 H (75-99) mg/dL Magnesium (1.6-2.3) mg/dL Total Protein (6.3-8.2) g/dL Albumin (3.5-5.0) g/dL 11/15/16 11/15/16 11/15/16 Range/Units 10:56 12:44 14:14 WBC (3.8-10.6) k/uL RBC (4.30-5.90) m/uL Hgb (13.0-17.5) gm/dL Hct (39.0-53.0) % MCV (80.0-100.0) fL Neutrophils # (1.3-7.7) k/uL ABG pO2 77 L (83-108) mmHg ABG HCO3 26 H (21-25) mmol/L ABG Total CO2 27 H (19-24) mmol/L BUN (9-20) mg/dL Glucose (74-99) mg/dL POC Glucose (mg/dL) 141 H 149 H (75-99) mg/dL Magnesium (1.6-2.3) mg/dL Total Protein (6.3-8.2) g/dL Albumin (3.5-5.0) g/dL 11/15/16 11/15/16 11/15/16 Range/Units 16:08 18:10 20:12 WBC (3.8-10.6) k/uL RBC (4.30-5.90) m/uL Hgb (13.0-17.5) gm/dL Hct (39.0-53.0) % MCV (80.0-100.0) fL Neutrophils # (1.3-7.7) k/uL ABG pO2 (83-108) mmHg ABG HCO3 (21-25) mmol/L ABG Total CO2 (19-24) mmol/L BUN (9-20) mg/dL Glucose (74-99) mg/dL POC Glucose (mg/dL) 156 H 135 H 141 H (75-99) mg/dL Magnesium (1.6-2.3) mg/dL Total Protein (6.3-8.2) g/dL Albumin (3.5-5.0) g/dL Assessment and Plan (1) Status post coronary artery bypass graft Status: Acute (2) Family history of heart disease Status: Acute (3) Hyperlipidemia Status: Acute (4) Hypertension Status: Acute (5) Nicotine dependence, chewing tobacco, uncomplicated Status: Acute Plan: Patient has respiratory failure and difficulty weaning off. Vital signs are otherwise stable and kidney functions remained stable. Respirator management as per the pulmonary. Further recommendations depend upon the clinical course. Patient may need a tracheostomy.
--- NOTE | 2016-11-15 20:59 | PN ---
DATE OF SERVICE: 11/15/2016 This 61-year-old gentleman who admitted with CAD, CABG, also had multiple medical problems, including acute respiratory failure. The patient was in DTs. The patient is on mechanical ventilation. The FiO2 is 90%. Seen and evaluated the patient along with the nurse practitioner. Please refer to the nurse practitioner's notes and impressions documented as a scribe for further information. Further recommendations to follow. Discussed with staff.
[2016-11-15 22:20] LABS: Glucose,Whole Blood 126 mg/dL (75-99)
[2016-11-15] MEDS: SENNOSIDES-DOCUSATE SODIUM 1 EACH TAB PO SCH (23:07)
[2016-11-16 00:11] LABS: Glucose,Whole Blood 144 mg/dL (75-99)
[2016-11-16] MEDS: HEPARIN SODIUM,PORCINE 5,000 UNIT/ML 1 ML VIAL SQ SCH ×3 (00:29→16:32)
[2016-11-16] MEDS: HYDROcodone/APAP 5-325MG 1 EACH TAB PO PRN (00:36)
[2016-11-16] MEDS: LORazepam 2 MG/ML SYRINGE IV PRN (01:38)
[2016-11-16] MEDS: PROPOFOL 500 MG in EMPTY BAG 1 BAG IV SCH ×7 (03:04→23:40)
[2016-11-16 03:15] LABS: Glucose,Whole Blood 126 mg/dL (75-99)
[2016-11-16] MEDS: IPRATROPIUM-ALBUTEROL 3 ML NEB INHALATION SCH ×6 (03:15→23:51)
[2016-11-16 06:02] LABS: ABG Base Excess 3.2 mmol/L; ABG HCO3 27 mmol/L (21-25); ABG PCO2 39 mmHg (35-45); ABG PH 7.46 (7.35-7.45); ABG PO2 79 mmHg (83-108); ABG TCO2 28 mmol/L (19-24)
[2016-11-16 06:13] LABS: Basophils % (A) 0 %; CH 32.8; CHCM 32.8; Eosinophils # (A) 0.1 k/uL (0-0.7); Eosinophils % (A) 0 %; HCT 32.2 % (39.0-53.0); HDW 2.39; HGB 10.7 gm/dL (13.0-17.5); Luc # (Auto) 0.27; Luc % (Auto) 2; Lymphocytes # (A) 1.7 k/uL (1.0-4.8); Lymphocytes % (A) 13 %; MCH 33.4 pg (25.0-35.0); MCHC 33.2 g/dL (31.0-37.0); MCV 100.6 fL (80.0-100.0); Macrocytosis Slight; Monocytes # (A) 0.9 k/uL (0-1.0); Monocytes % (A) 7 %; Neutrophils # (A) 10.3 k/uL (1.3-7.7); Neutrophils % (A) 78 %; RDW 14.1 % (11.5-15.5); WBC 13.2 k/uL (3.8-10.6); WBC (Perox) 13.83
[2016-11-16 06:30] LABS: Anion Gap 9 mmol/L; Calcium 8.5 mg/dL (8.4-10.2); Carbon Dioxide 25 mmol/L (22-30); Chloride 107 mmol/L (98-107); Glucose 144 mg/dL (74-99); Non-African American GFR(MDRD) >60 (>60 ml/min/1.73 sqM); Sodium 141 mmol/L (137-145); Total Bilirubin 0.9 mg/dL (0.2-1.3)
[2016-11-16 06:31] LABS: Prothrombin Time 9.9 sec (9.0-12.0)
[2016-11-16 06:33] LABS: Blood Urea Nitrogen 33 mg/dL (9-20); Potassium 5.2 mmol/L (3.5-5.1)
[2016-11-16 06:34] LABS: ALT 31 U/L (21-72); AST 38 U/L (17-59); Alkaline Phosphatase 35 U/L (38-126); Magnesium 2.5 mg/dL (1.6-2.3); Phosphorous 4.2 mg/dL (2.5-4.5)
[2016-11-16 07:22] LABS: Partial Thromboplastin Time 19.5 sec (22.0-30.0)
[2016-11-16] MEDS: BUDESONIDE 1 MG/2 ML NEBU INHALATION SCH ×2 (07:44→20:04)
[2016-11-16 07:53] LABS: Glucose,Whole Blood 143 mg/dL (75-99)
--- NOTE | 2016-11-16 08:08 | XR ---
EXAMINATION TYPE: XR chest 1V portable DATE OF EXAM: 11/16/2016 7:08 AM COMPARISON: 11/15/2016 HISTORY: SOB, Follow Up FINDINGS: Indwelling tubes and catheters are unchanged. No change in bibasilar opacities. Stable appearance of the cardio-mediastinal structures at this time. Pleural effusion unchanged. IMPRESSION: 1. Stable portable chest. Clinical correlation and follow up until resolution is recommended.
[2016-11-16] MEDS ORDERED: FUROSEMIDE 10 MG/ML 2 ML VIAL IV ONE (08:35)
[2016-11-16] MEDS: ASPIRIN 325 MG TAB PO SCH (09:16)
[2016-11-16] MEDS: ATORVASTATIN 40 MG TAB PO SCH (09:16)
[2016-11-16] MEDS: methylPREDNISolone SOD SUCCI 40 MG/ML 1 ML VIAL IV SCH ×2 (09:16→22:03)
[2016-11-16] MEDS: CLOPIDOGREL 75 MG TAB PO SCH (09:16)
[2016-11-16] MEDS: CHLORHEXIDINE GLUCONATE 15 ML CUP MUCOUS MEM SCH ×2 (09:16→22:03)
[2016-11-16] MEDS: LISINOPRIL 5 MG TAB PO SCH ×2 (09:16→22:03)
[2016-11-16] MEDS: METOPROLOL TARTRATE 25 MG TAB PO SCH ×2 (09:17→19:41)
[2016-11-16] MEDS: PANTOPRAZOLE 40 MG/10 ML VIAL IVP SCH (09:17)
[2016-11-16] MEDS: THIAMINE 100 MG TAB PO SCH ×2 (09:18→22:03)
[2016-11-16 09:59] LABS: Glucose,Whole Blood 136 mg/dL (75-99)
--- NOTE | 2016-11-16 10:22 | P.PN ---
Subjective Principal diagnosis: Coronary artery disease, status post prior stenting to his right coronary artery. Preserved left ventricular function. Hyperlipidemia. Hypertension. ETOH abuse. POD #6 total arterial non-aortic patch off-pump double coronary artery bypass grafting using in situ skeletonized right internal mammary artery to the left anterior descending artery across the anterior midline in situ totally skeletonized left internal mammary artery to the first obtuse marginal artery. Intraoperative transesophageal echocardiogram and epi-aortic scanning. Intraoperative graft flow measurements using the [employer] system Patient had postoperative mucous plugging with increasing oxygen demand requiring bronchoscopy the night of surgery. Bronchial washings negative for bacteria/viruses to date. Pt developed postoperative alcohol withdrawal requiring increased sedation and continued mechanical ventilation. Patient remains sedated on mechanical ventilation. ABGs reviewed from this morning on 80% FiO2 with a PEEP of 10. Per pulmonary PEEP increased to 13 with orders to try and wean down FiO2. No weaning trial today, no sedation holiday per pulmonology. Objective - Vital Signs Vital signs: Vital Signs Temp 99.0 F 11/16/16 08:00 Pulse 72 11/16/16 09:00 Resp 24 11/16/16 09:00 BP 120/71 11/16/16 09:00 Pulse Ox 95 11/16/16 09:00 Intake & Output 11/15/16 11/16/16 11/16/16 18:59 06:59 18:59 Intake Total 8341.066 7771.083 360 Output Total 815 1100 550 Balance 548.175 48.083 -190 Weight 97.3 kg 97.5 kg Intake: Intake, IV Titration 423.175 348.083 130 Amount Insulin Regular 100 unit 0 12.142 In Sodium Chloride 0.9% 100 ml @ Per Protocol IV .Q0M [facility] Rx#:[id number] Lactated Ringers 1,000 ml 240 240 80 @ 20 mls/hr IV .Q24H [facility] Rx#:[id number] Propofol 500 mg In Empty 183.175 95.941 50 Bag 1 bag @ Titrate IV . Q0M [facility] Rx#:[id number] Tube Feeding 850 800 200 Other 90 30 Output: Urine 815 1100 550 Other: Voiding Method Indwelling Catheter Indwelling Catheter # Bowel Movements 0 ABP, PAP, CO, CI - Last Documented Arterial Blood Pressure 138/75 Pulmonary Artery Pressure 46/23 Cardiac Output 6.8 Cardiac Index 3.3 - Constitutional General appearance: Present: no acute distress - Respiratory Details: Lungs sounds diminished bilaterally. Respirations even, nonlabored on mechanical ventilation. Current settings title volume 450, FiO2 80%, respiratory rate 20, PEEP of 13. - Cardiovascular Details: S1, S2 present. Regular rate and rhythm, normal sinus rhythm on telemetry, no events noted overnight on telemetry. Heart hugger/SCDs/teds present. Sternum stable. - Gastrointestinal Gastrointestinal Comment(s): Abdomen soft, nontender, nondistended. Active bowel sounds 4 quadrants. Vital tube feeding infusing and 50 mL per hour through OG tube. - Genitourinary Genitourinary Comment(s): Tay present draining clear, yellow urine. Output approximately 100 mL/h overnight. - Psychiatric Psychiatric Comment(s): Remains sedated on mechanical ventilation. - Allied health notes Allied health notes reviewed: nursing - Labs CBC & Chem 7: 11/16/16 05:55 11/16/16 05:55 Labs: Abnormal Lab Results - Last 24 Hours (Table) 11/15/16 11/15/16 11/15/16 Range/Units 10:24 10:56 12:44 WBC (3.8-10.6) k/uL RBC (4.30-5.90) m/uL Hgb (13.0-17.5) gm/dL Hct (39.0-53.0) % MCV (80.0-100.0) fL Neutrophils # (1.3-7.7) k/uL APTT (22.0-30.0) sec ABG pH (7.35-7.45) ABG pO2 77 L (83-108) mmHg ABG HCO3 26 H (21-25) mmol/L ABG Total CO2 27 H (19-24) mmol/L Potassium (3.5-5.1) mmol/L BUN (9-20) mg/dL Creatinine (0.66-1.25) mg/dL Glucose (74-99) mg/dL POC Glucose (mg/dL) 148 H 141 H (75-99) mg/dL Magnesium (1.6-2.3) mg/dL Alkaline Phosphatase (38-126) U/L Total Protein (6.3-8.2) g/dL Albumin (3.5-5.0) g/dL 11/15/16 11/15/16 11/15/16 Range/Units 14:14 16:08 18:10 WBC (3.8-10.6) k/uL RBC (4.30-5.90) m/uL Hgb (13.0-17.5) gm/dL Hct (39.0-53.0) % MCV (80.0-100.0) fL Neutrophils # (1.3-7.7) k/uL APTT (22.0-30.0) sec ABG pH (7.35-7.45) ABG pO2 (83-108) mmHg ABG HCO3 (21-25) mmol/L ABG Total CO2 (19-24) mmol/L Potassium (3.5-5.1) mmol/L BUN (9-20) mg/dL Creatinine (0.66-1.25) mg/dL Glucose (74-99) mg/dL POC Glucose (mg/dL) 149 H 156 H 135 H (75-99) mg/dL Magnesium (1.6-2.3) mg/dL Alkaline Phosphatase (38-126) U/L Total Protein (6.3-8.2) g/dL Albumin (3.5-5.0) g/dL 11/15/16 11/15/16 11/16/16 Range/Units 20:12 22:19 00:09 WBC (3.8-10.6) k/uL RBC (4.30-5.90) m/uL Hgb (13.0-17.5) gm/dL Hct (39.0-53.0) % MCV (80.0-100.0) fL Neutrophils # (1.3-7.7) k/uL APTT (22.0-30.0) sec ABG pH (7.35-7.45) ABG pO2 (83-108) mmHg ABG HCO3 (21-25) mmol/L ABG Total CO2 (19-24) mmol/L Potassium (3.5-5.1) mmol/L BUN (9-20) mg/dL Creatinine (0.66-1.25) mg/dL Glucose (74-99) mg/dL POC Glucose (mg/dL) 141 H 126 H 144 H (75-99) mg/dL Magnesium (1.6-2.3) mg/dL Alkaline Phosphatase (38-126) U/L Total Protein (6.3-8.2) g/dL Albumin (3.5-5.0) g/dL 11/16/16 11/16/16 11/16/16 Range/Units 03:13 05:53 05:55 WBC 13.2 H (3.8-10.6) k/uL RBC 3.20 L (4.30-5.90) m/uL Hgb 10.7 L (13.0-17.5) gm/dL Hct 32.2 L (39.0-53.0) % MCV 100.6 H (80.0-100.0) fL Neutrophils # 10.3 H (1.3-7.7) k/uL APTT (22.0-30.0) sec ABG pH 7.46 H (7.35-7.45) ABG pO2 79 L (83-108) mmHg ABG HCO3 27 H (21-25) mmol/L ABG Total CO2 28 H (19-24) mmol/L Potassium (3.5-5.1) mmol/L BUN (9-20) mg/dL Creatinine (0.66-1.25) mg/dL Glucose (74-99) mg/dL POC Glucose (mg/dL) 126 H (75-99) mg/dL Magnesium (1.6-2.3) mg/dL Alkaline Phosphatase (38-126) U/L Total Protein (6.3-8.2) g/dL Albumin (3.5-5.0) g/dL 11/16/16 11/16/16 11/16/16 Range/Units 05:55 05:55 07:50 WBC (3.8-10.6) k/uL RBC (4.30-5.90) m/uL Hgb (13.0-17.5) gm/dL Hct (39.0-53.0) % MCV (80.0-100.0) fL Neutrophils # (1.3-7.7) k/uL APTT 19.5 L (22.0-30.0) sec ABG pH (7.35-7.45) ABG pO2 (83-108) mmHg ABG HCO3 (21-25) mmol/L ABG Total CO2 (19-24) mmol/L Potassium 5.2 H (3.5-5.1) mmol/L BUN 33 H (9-20) mg/dL Creatinine 0.62 L (0.66-1.25) mg/dL Glucose 144 H (74-99) mg/dL POC Glucose (mg/dL) 143 H (75-99) mg/dL Magnesium 2.5 H (1.6-2.3) mg/dL Alkaline Phosphatase 35 L (38-126) U/L Total Protein 6.0 L (6.3-8.2) g/dL Albumin 3.0 L (3.5-5.0) g/dL 11/16/16 Range/Units 09:57 WBC (3.8-10.6) k/uL RBC (4.30-5.90) m/uL Hgb (13.0-17.5) gm/dL Hct (39.0-53.0) % MCV (80.0-100.0) fL Neutrophils # (1.3-7.7) k/uL APTT (22.0-30.0) sec ABG pH (7.35-7.45) ABG pO2 (83-108) mmHg ABG HCO3 (21-25) mmol/L ABG Total CO2 (19-24) mmol/L Potassium (3.5-5.1) mmol/L BUN (9-20) mg/dL Creatinine (0.66-1.25) mg/dL Glucose (74-99) mg/dL POC Glucose (mg/dL) 136 H (75-99) mg/dL Magnesium (1.6-2.3) mg/dL Alkaline Phosphatase (38-126) U/L Total Protein (6.3-8.2) g/dL Albumin (3.5-5.0) g/dL - Imaging and Cardiology Chest x-ray: image reviewed Assessment and Plan (1) Status post coronary artery bypass graft Status: Acute (2) Coronary artery disease Status: Acute (3) Family history of heart disease Status: Acute (4) History of PTCA Status: Acute (5) Hyperlipidemia Status: Acute (6) Hypertension Status: Acute (7) Nicotine dependence, chewing tobacco, uncomplicated Status: Acute Plan: 1. Continue aspirin, Lipitor, Plavix, heparin, Lopressor, lisinopril. 2. Ventilator management per pulmonology, wean O2 as tolerated. Wean Solu- Medrol per pulmonology. 3. Will give Lasix 20 mg IV push 1 today. 4. Insulin/diabetic management per primary care service. 5. Continue [facility] protocol for alcohol withdrawal. 6. Daily labs, chest x-rays. 7. GI/DVT prophylaxis. 8. More recommendations as patient progresses. Time with Patient: Greater than 30
--- NOTE | 2016-11-16 10:27 | P.PN ---
Subjective Progress note dated 11/15/2016 This is a 61-year-old male who is status post bypass grafting. He is postop day #5. He remains intubated on mechanical ventilator. His vent settings include the assist control mode rate is 16 to be increased to 20 a tidal [place] of 500 be decreased to 450 and FiO2 of 90% and a PEEP of 5 which will be increased to 10. His arterial blood gases on those settings show a pO2 of only 84 pCO2 of 45 and appears to some 0.40. This was on 90%. He is getting lactated Ringer's at 20 mL an hour the Diprovan at 25 mics per kilogram per minute and insulin drip at 1 unit per hour and vital HP 50 with a goal of 50. Chest x-rays essentially unchanged. He does have a small left pleural effusion. Progress note dated 11/16/2016 61-year-old male who is status post bypass grafting. He is postop day #6. He is intubated and on mechanical ventilator. He's had problems with hypoxemia. We will try to increase his PEEP up to 13. Currently he is on the assist control mode rate of 2010 of I'm 4 5080% PEEP of 13. It was just increased. Blood gases on a PEEP of 10 show a PaO2 of 79 a PaCO2 of 39 and a pH of 7.46. The patient is currently on propofol at 20 mics per kilogram per minute lactated Ringer's at 20 mL an hour insulin at 1 unit per hour and vital high protein at a rate of 50 with a goal of 50. He has not made much in the way of progress. Chest x-ray though is stable. Objective - Vital Signs Vital signs: Vital Signs Temp 99.0 F 11/16/16 08:00 Pulse 86 11/16/16 10:00 Resp 20 11/16/16 10:00 BP 124/73 11/16/16 10:00 Pulse Ox 93 L 11/16/16 10:00 Intake & Output 11/15/16 11/16/16 11/16/16 18:59 06:59 18:59 Intake Total 6449.109 7192.083 360 Output Total 815 1100 900 Balance 548.175 48.083 -540 Weight 97.3 kg 97.5 kg Intake: Intake, IV Titration 423.175 348.083 130 Amount Insulin Regular 100 unit 0 12.142 In Sodium Chloride 0.9% 100 ml @ Per Protocol IV .Q0M [facility] Rx#:[id number] Lactated Ringers 1,000 ml 240 240 80 @ 20 mls/hr IV .Q24H [facility] Rx#:[id number] Propofol 500 mg In Empty 183.175 95.941 50 Bag 1 bag @ Titrate IV . Q0M [facility] Rx#:[id number] Tube Feeding 850 800 200 Other 90 30 Output: Urine 815 1100 900 Other: Voiding Method Indwelling Catheter Indwelling Catheter # Bowel Movements 0 ABP, PAP, CO, CI - Last Documented Arterial Blood Pressure 151/88 Pulmonary Artery Pressure 46/23 Cardiac Output 6.8 Cardiac Index 3.3 - Exam Now no acute distress. The patient remains intubated and sedated. HEENT examination is grossly unremarkable. Mucous members are moist. Endotracheal and NG tube noted. Neck supple. Full range of motion. No adenopathy or thyromegaly. Neck veins are flat. Cardiovascular examination reveals regular rhythm rate. S1-S2 normal. No distinct murmur noted. Lungs reveal diminished breath sounds throughout. A few scattered crackles. A few rhonchi are noted. Abdomen soft bowel sounds are heard. Extremities are intact. There is mild edema. Skin without rash. Neurologic examination cannot be adequately performed. - Labs CBC & Chem 7: 11/16/16 05:55 11/16/16 05:55 Labs: Abnormal Lab Results - Last 24 Hours (Table) 11/15/16 11/15/16 11/15/16 Range/Units 10:24 10:56 12:44 WBC (3.8-10.6) k/uL RBC (4.30-5.90) m/uL Hgb (13.0-17.5) gm/dL Hct (39.0-53.0) % MCV (80.0-100.0) fL Neutrophils # (1.3-7.7) k/uL APTT (22.0-30.0) sec ABG pH (7.35-7.45) ABG pO2 77 L (83-108) mmHg ABG HCO3 26 H (21-25) mmol/L ABG Total CO2 27 H (19-24) mmol/L Potassium (3.5-5.1) mmol/L BUN (9-20) mg/dL Creatinine (0.66-1.25) mg/dL Glucose (74-99) mg/dL POC Glucose (mg/dL) 148 H 141 H (75-99) mg/dL Magnesium (1.6-2.3) mg/dL Alkaline Phosphatase (38-126) U/L Total Protein (6.3-8.2) g/dL Albumin (3.5-5.0) g/dL 11/15/16 11/15/16 11/15/16 Range/Units 14:14 16:08 18:10 WBC (3.8-10.6) k/uL RBC (4.30-5.90) m/uL Hgb (13.0-17.5) gm/dL Hct (39.0-53.0) % MCV (80.0-100.0) fL Neutrophils # (1.3-7.7) k/uL APTT (22.0-30.0) sec ABG pH (7.35-7.45) ABG pO2 (83-108) mmHg ABG HCO3 (21-25) mmol/L ABG Total CO2 (19-24) mmol/L Potassium (3.5-5.1) mmol/L BUN (9-20) mg/dL Creatinine (0.66-1.25) mg/dL Glucose (74-99) mg/dL POC Glucose (mg/dL) 149 H 156 H 135 H (75-99) mg/dL Magnesium (1.6-2.3) mg/dL Alkaline Phosphatase (38-126) U/L Total Protein (6.3-8.2) g/dL Albumin (3.5-5.0) g/dL 11/15/16 11/15/16 11/16/16 Range/Units 20:12 22:19 00:09 WBC (3.8-10.6) k/uL RBC (4.30-5.90) m/uL Hgb (13.0-17.5) gm/dL Hct (39.0-53.0) % MCV (80.0-100.0) fL Neutrophils # (1.3-7.7) k/uL APTT (22.0-30.0) sec ABG pH (7.35-7.45) ABG pO2 (83-108) mmHg ABG HCO3 (21-25) mmol/L ABG Total CO2 (19-24) mmol/L Potassium (3.5-5.1) mmol/L BUN (9-20) mg/dL Creatinine (0.66-1.25) mg/dL Glucose (74-99) mg/dL POC Glucose (mg/dL) 141 H 126 H 144 H (75-99) mg/dL Magnesium (1.6-2.3) mg/dL Alkaline Phosphatase (38-126) U/L Total Protein (6.3-8.2) g/dL Albumin (3.5-5.0) g/dL 11/16/16 11/16/16 11/16/16 Range/Units 03:13 05:53 05:55 WBC 13.2 H (3.8-10.6) k/uL RBC 3.20 L (4.30-5.90) m/uL Hgb 10.7 L (13.0-17.5) gm/dL Hct 32.2 L (39.0-53.0) % MCV 100.6 H (80.0-100.0) fL Neutrophils # 10.3 H (1.3-7.7) k/uL APTT (22.0-30.0) sec ABG pH 7.46 H (7.35-7.45) ABG pO2 79 L (83-108) mmHg ABG HCO3 27 H (21-25) mmol/L ABG Total CO2 28 H (19-24) mmol/L Potassium (3.5-5.1) mmol/L BUN (9-20) mg/dL Creatinine (0.66-1.25) mg/dL Glucose (74-99) mg/dL POC Glucose (mg/dL) 126 H (75-99) mg/dL Magnesium (1.6-2.3) mg/dL Alkaline Phosphatase (38-126) U/L Total Protein (6.3-8.2) g/dL Albumin (3.5-5.0) g/dL 11/16/16 11/16/16 11/16/16 Range/Units 05:55 05:55 07:50 WBC (3.8-10.6) k/uL RBC (4.30-5.90) m/uL Hgb (13.0-17.5) gm/dL Hct (39.0-53.0) % MCV (80.0-100.0) fL Neutrophils # (1.3-7.7) k/uL APTT 19.5 L (22.0-30.0) sec ABG pH (7.35-7.45) ABG pO2 (83-108) mmHg ABG HCO3 (21-25) mmol/L ABG Total CO2 (19-24) mmol/L Potassium 5.2 H (3.5-5.1) mmol/L BUN 33 H (9-20) mg/dL Creatinine 0.62 L (0.66-1.25) mg/dL Glucose 144 H (74-99) mg/dL POC Glucose (mg/dL) 143 H (75-99) mg/dL Magnesium 2.5 H (1.6-2.3) mg/dL Alkaline Phosphatase 35 L (38-126) U/L Total Protein 6.0 L (6.3-8.2) g/dL Albumin 3.0 L (3.5-5.0) g/dL 11/16/16 Range/Units 09:57 WBC (3.8-10.6) k/uL RBC (4.30-5.90) m/uL Hgb (13.0-17.5) gm/dL Hct (39.0-53.0) % MCV (80.0-100.0) fL Neutrophils # (1.3-7.7) k/uL APTT (22.0-30.0) sec ABG pH (7.35-7.45) ABG pO2 (83-108) mmHg ABG HCO3 (21-25) mmol/L ABG Total CO2 (19-24) mmol/L Potassium (3.5-5.1) mmol/L BUN (9-20) mg/dL Creatinine (0.66-1.25) mg/dL Glucose (74-99) mg/dL POC Glucose (mg/dL) 136 H (75-99) mg/dL Magnesium (1.6-2.3) mg/dL Alkaline Phosphatase (38-126) U/L Total Protein (6.3-8.2) g/dL Albumin (3.5-5.0) g/dL Assessment and Plan (1) Postoperative respiratory failure Status: Acute (2) Status post coronary artery bypass graft Status: Acute (3) Coronary artery disease Status: Acute (4) History of PTCA Status: Acute (5) Hyperlipidemia Status: Acute (6) Hypertension Status: Acute (7) Nicotine dependence, chewing tobacco, uncomplicated Status: Acute Plan: Plan dated 11/15/2016 The patient's vent will be changed a bit. We'll bump his rate up from 16-20. We'll decrease the tidal volume from 500 to 450. We'll increase the PEEP of 5- 10. I've asked respiratory to try to titrate down the FiO2. Hopefully this will happen once we increase the PEEP from 5-10. We'll continue to follow closely. X-rays labs medications are all reviewed. Prognosis is guarded. Plan dated 11/16/2016 The patient's vent will be changed a bit as we increase the PEEP to 13. I asked the respiratory therapist guarded titrate down the FiO2. Labs x-rays and medications are all reviewed. Additional recommendations suggestions are forthcoming. Prognosis is guarded. Time with Patient: Greater than 30
[2016-11-16 12:20] LABS: Glucose,Whole Blood 160 mg/dL (75-99)
[2016-11-16] MEDS: MULTIVITAMINS, THERA LIQUID 237 ML BOTTLE PO SCH (12:24)
[2016-11-16 13:48] LABS: Glucose,Whole Blood 153 mg/dL (75-99)
--- NOTE | 2016-11-16 15:52 | P.PN ---
Subjective Date of service 11/15/2016. Progress note being dictated for Dr. Jordan. Interval history: This is a 61-year-old gentleman status post CABG, status post bronchoscopy related to significant mucus plugging, failure to wean, suspected DTs and multiple other medical issues. Chest x-ray noted. Remains vent dependent currently on FiO2 of 90% with PEEP increased to +10. Unsuccessful weaning trials as patient becomes significantly agitated, hypertensive, tachycardic. Continues on nebulized bronchodilators, IV steroids .Receiving vital HP at goal of 50ml/hr.Maintained on insulin, Diprovan drips and CIWA protocol. Unable to perform review systems as patient sedated and on mechanical ventilation Active Medications Hydrocodone Bitart/Acetaminophen (Rufe 5-325) 2 each PO Q4HR PRN PRN Reason: Severe Pain Last Admin: 11/16/16 00:36 Dose: 2 each Hydrocodone Bitart/Acetaminophen (Rufe 5-325) 1 each PO Q4HR PRN PRN Reason: Moderate Pain Albuterol/Ipratropium (Duoneb 0.5 Mg-3 Mg/3 Ml Soln) 3 ml INHALATION RT-Q4H [facility] Last Admin: 11/16/16 15:43 Dose: 3 ml Albuterol/Ipratropium (Duoneb 0.5 Mg-3 Mg/3 Ml Soln) 3 ml INHALATION RT-Q2H PRN PRN Reason: Shortness Of Breath Or Wheezing Aspirin (Aspirin) 325 mg PO DAILY [facility] Last Admin: 11/16/16 09:16 Dose: 325 mg Atorvastatin Calcium (Lipitor) 40 mg PO DAILY [facility] Last Admin: 11/16/16 09:16 Dose: 40 mg Benzocaine (Hurricaine [place]) 1 applic MUCOUS MEM QID PRN PRN Reason: Mouth Irritation Last Admin: 11/14/16 11:36 Dose: 1 applic Benzocaine/Menthol (Cepacol Lozenge) 1 each MUCOUS MEM Q2H PRN PRN Reason: Sore Throat Bisacodyl (Dulcolax) 10 mg RECTAL DAILY PRN PRN Reason: Constipation Last Admin: 11/13/16 10:27 Dose: 10 mg Budesonide (Pulmicort) 1 mg INHALATION RT-BID [facility] Last Admin: 11/16/16 07:44 Dose: 1 mg Chlorhexidine Gluconate (Peridex) 15 ml MUCOUS MEM BID [facility] Last Admin: 11/16/16 09:16 Dose: 15 ml Clopidogrel Bisulfate (Plavix) 75 mg PO DAILY [facility] Last Admin: 11/16/16 09:16 Dose: 75 mg Heparin Sodium (Porcine) (Heparin) 5,000 unit SQ Q8HR [facility] Last Admin: 11/16/16 09:15 Dose: 5,000 unit Insulin Human Regular 100 unit (/ Sodium Chloride) 101 mls @ 0 mls/hr IV .Q0M [facility]; Per Protocol PRN Reason: Protocol Last Titration: 11/16/16 12:26 Dose: 2.5 units/hr, 2.52 mls/hr Lactated Ringer's (Lactated Ringers) 1,000 mls @ 20 mls/hr IV .Q24H [facility] Last Admin: 11/15/16 12:48 Dose: 20 mls/hr Propofol 500 mg/ IV Solution 50 mls @ 0 mls/hr IV .Q0M [facility]; Titrate PRN Reason: Protocol Last Admin: 11/16/16 14:39 Dose: 40 mcg/kg/min, 23.37 mls/hr Iron/Minerals/Multivitamins (Theragran Liquid) 15 ml PO DAILY@1200 [facility] Last Admin: 11/16/16 12:24 Dose: 15 ml Lisinopril (Zestril) 5 mg PO DAILY [facility] Last Admin: 11/16/16 09:16 Dose: 5 mg Lorazepam (Ativan) 1 mg IV Q2HR PRN PRN Reason: CIWA 8 or 9 Last Admin: 11/15/16 21:45 Dose: 1 mg Lorazepam (Ativan) 1 mg IV Q1HR PRN PRN Reason: CIWA 10 to 15 Last Admin: 11/15/16 03:51 Dose: 1 mg Lorazepam (Ativan) 2 mg IV Q1HR PRN PRN Reason: CIWA 16 or higher Last Admin: 11/16/16 01:38 Dose: 2 mg Magnesium Hydroxide (Milk Of Magnesia) 2,400 mg PO BID PRN PRN Reason: Constipation Methylprednisolone Sodium Succinate (Solu-Medrol) 40 mg IV Q12HR [facility] Last Admin: 11/16/16 09:16 Dose: 40 mg Metoclopramide HCl (Reglan) 10 mg IVP Q4H PRN PRN Reason: Nausea And Vomiting Metoprolol Tartrate (Lopressor) 25 mg PO BID [facility] Last Admin: 11/16/16 09:17 Dose: 25 mg Miscellaneous Information (Magnesium Per Protocol) 1 each MISCELLANE DAILY PRN ; Protocol PRN Reason: Per Protocol Miscellaneous Information (Phosphorus Per Protocol) 1 each MISCELLANE DAILY PRN ; Protocol PRN Reason: Per Protocol Miscellaneous Information (Potassium Per Protocol) 1 each MISCELLANE DAILY PRN ; Protocol PRN Reason: Per Protocol Morphine Sulfate (Morphine Sulfate (Inj)) 2 mg IVP Q2H PRN PRN Reason: Severe Pain Last Admin: 11/13/16 22:53 Dose: 2 mg Ondansetron HCl (Zofran) 4 mg IVP Q6HR PRN PRN Reason: Nausea And Vomiting Pantoprazole Sodium (Protonix) 40 mg IVP DAILY [facility] Last Admin: 11/16/16 09:17 Dose: 40 mg Senna/Docusate Sodium (Senokot-S) 2 each PO HS [facility] Last Admin: 11/15/16 23:07 Dose: 2 each Sodium Chloride (Saline Flush) 10 ml IV BID [facility] Last Admin: 11/16/16 09:17 Dose: 10 ml Thiamine HCl (Vitamin B-1) 100 mg PO BID [facility] Last Admin: 11/16/16 09:18 Dose: 100 mg Objective - Vital Signs Vital signs: Vital Signs Temp 98.3 F 11/15/16 16:00 Pulse 52 L 11/15/16 17:00 Resp 20 11/15/16 17:00 BP 104/56 11/15/16 17:00 Pulse Ox 96 11/15/16 17:00 Intake & Output 11/14/16 11/15/16 11/15/16 18:59 06:59 18:59 Intake Total 6540.568 1968.272 1179.934 Output Total 520 600 665 Balance 535.891 689.272 514.934 Weight 97.4 kg 97.3 kg 97.3 kg Intake: Intake, IV Titration 415.891 499.272 339.934 Amount Insulin Regular 100 unit 3.167 0 In Sodium Chloride 0.9% 100 ml @ Per Protocol IV .Q0M [facility] Rx#:[id number] Lactated Ringers 1,000 ml 230 240 200 @ 20 mls/hr IV .Q24H [facility] Rx#:[id number] Propofol 1,000 mg In 82.724 Empty Bag 1 bag @ Titrate IV .Q0M [facility] Rx#: [id number] Propofol 500 mg In Empty 100.000 259.272 139.934 Bag 1 bag @ Titrate IV . Q0M [facility] Rx#:[id number] Tube Feeding 550 700 750 Other 90 90 90 Output: Urine 520 600 665 Other: Voiding Method Indwelling Catheter Indwelling Catheter Indwelling Catheter ABP, PAP, CO, CI - Last Documented Arterial Blood Pressure 83/52 Pulmonary Artery Pressure 46/23 Cardiac Output 6.8 Cardiac Index 3.3 - Exam PHYSICAL EXAM: VITAL SIGNS: As above GENERAL: [Sedated, intubated HEENT: [Pupils equal, conjunctiva normal. Mucosa moist. ] NECK: [Supple, no JVD] RESPIRATORY EFFORT:[Normal] LUNGS: [Diminished throughout, bibasilar crackles, occasional rhonchi] CARDIOVASCULAR[regular S1 and S2, no murmurs rubs or gallops, mild edema] GI: [Abdomen soft, nontender, positive bowel sounds.] PSYCH: [Alert and oriented -3, mood and affect normal.] NEURO: Unable to assess, patient sedated on Diprovan and vent dependent Microbiology 11/10/16 16:40 Lung Aspirate - Right Gram Stain - Final 11/10/16 16:40 Lung Aspirate - Right Bronchial Washings Culture - Final 11/10/16 16:40 Lung - Right Acid Fast Bacilli Smear - Final 11/10/16 16:40 Lung - Right Acid Fast Bacilli Culture - Preliminary 11/10/16 16:40 Lung - Right Fungal Culture - Preliminary - Labs CBC & Chem 7: 11/16/16 05:55 11/16/16 05:55 Labs: Abnormal Lab Results - Last 24 Hours (Table) 11/14/16 11/14/16 11/14/16 Range/Units 18:09 20:25 22:37 WBC (3.8-10.6) k/uL RBC (4.30-5.90) m/uL Hgb (13.0-17.5) gm/dL Hct (39.0-53.0) % MCV (80.0-100.0) fL Neutrophils # (1.3-7.7) k/uL ABG pO2 (83-108) mmHg ABG HCO3 (21-25) mmol/L ABG Total CO2 (19-24) mmol/L BUN (9-20) mg/dL Glucose (74-99) mg/dL POC Glucose (mg/dL) 124 H 143 H 131 H (75-99) mg/dL Magnesium (1.6-2.3) mg/dL Total Protein (6.3-8.2) g/dL Albumin (3.5-5.0) g/dL 11/15/16 11/15/16 11/15/16 Range/Units 00:27 02:27 03:59 WBC (3.8-10.6) k/uL RBC (4.30-5.90) m/uL Hgb (13.0-17.5) gm/dL Hct (39.0-53.0) % MCV (80.0-100.0) fL Neutrophils # (1.3-7.7) k/uL ABG pO2 (83-108) mmHg ABG HCO3 (21-25) mmol/L ABG Total CO2 (19-24) mmol/L BUN (9-20) mg/dL Glucose (74-99) mg/dL POC Glucose (mg/dL) 153 H 148 H 178 H (75-99) mg/dL Magnesium (1.6-2.3) mg/dL Total Protein (6.3-8.2) g/dL Albumin (3.5-5.0) g/dL 11/15/16 11/15/16 11/15/16 Range/Units 04:00 04:00 05:01 WBC 10.9 H (3.8-10.6) k/uL RBC 3.19 L (4.30-5.90) m/uL Hgb 10.3 L (13.0-17.5) gm/dL Hct 32.0 L (39.0-53.0) % MCV 100.4 H (80.0-100.0) fL Neutrophils # 8.6 H (1.3-7.7) k/uL ABG pO2 (83-108) mmHg ABG HCO3 28 H (21-25) mmol/L ABG Total CO2 29 H (19-24) mmol/L BUN 31 H (9-20) mg/dL Glucose 170 H (74-99) mg/dL POC Glucose (mg/dL) (75-99) mg/dL Magnesium 2.5 H (1.6-2.3) mg/dL Total Protein 5.6 L (6.3-8.2) g/dL Albumin 2.9 L (3.5-5.0) g/dL 11/15/16 11/15/16 11/15/16 Range/Units 07:37 10:24 10:56 WBC (3.8-10.6) k/uL RBC (4.30-5.90) m/uL Hgb (13.0-17.5) gm/dL Hct (39.0-53.0) % MCV (80.0-100.0) fL Neutrophils # (1.3-7.7) k/uL ABG pO2 77 L (83-108) mmHg ABG HCO3 26 H (21-25) mmol/L ABG Total CO2 27 H (19-24) mmol/L BUN (9-20) mg/dL Glucose (74-99) mg/dL POC Glucose (mg/dL) 166 H 148 H (75-99) mg/dL Magnesium (1.6-2.3) mg/dL Total Protein (6.3-8.2) g/dL Albumin (3.5-5.0) g/dL 11/15/16 11/15/16 11/15/16 Range/Units 12:44 14:14 16:08 WBC (3.8-10.6) k/uL RBC (4.30-5.90) m/uL Hgb (13.0-17.5) gm/dL Hct (39.0-53.0) % MCV (80.0-100.0) fL Neutrophils # (1.3-7.7) k/uL ABG pO2 (83-108) mmHg ABG HCO3 (21-25) mmol/L ABG Total CO2 (19-24) mmol/L BUN (9-20) mg/dL Glucose (74-99) mg/dL POC Glucose (mg/dL) 141 H 149 H 156 H (75-99) mg/dL Magnesium (1.6-2.3) mg/dL Total Protein (6.3-8.2) g/dL Albumin (3.5-5.0) g/dL Assessment and Plan Plan: 1. CAD, [Status post CABG]. 2. [Acute hypoxic respiratory failure secondary to the above]. 3. [Exacerbation COPD]. 4. [Possible early DTs, on CIWA protocol]. 5. Right upper and lower lobe collapse secondary to mucus plugging status post bronchoscopy]. 6. [Hypertension]. 7. [Ongoing Nicotine dependence, chewing tobacco Plan: Continue on current medication regime ,monitoring and symptomatic treatment. Maintain CIWA protocol. Tube feeds at goal, maintained on IV steroids, continue with insulin drip. GI and DVT prophylaxis in place. Further recommendations to follow. The impression and plan of care has been dictated as directed. .: I performed a H&P examination of this patient and discussed the same with the dictator. I agree with the dictator's note. Any additional findings/opinions/ etc. will be noted.
--- NOTE | 2016-11-16 16:10 | P.PN ---
Subjective Date of service 11/16/2016. Progress note being dictated for Dr. Jordan. Interval history: This is a 61-year-old gentleman status post CABG, status post bronchoscopy related to significant mucus plugging, failure to wean, suspected DTs , history of EtOH abuse and multiple other medical issues. ABGs noted, FiO2 maintained at 80%/PEEP increased to +13. Chest x-ray stable. Maintained on diprovan, CIWA protocol and insulin drips. Continues on nebulized bronchodilators, IV steroids. No weaning trials today per pulmonary. Tolerating tube feeds at goal With minimal to no residuals. T-max 99.3, and WBC mildly increased up to 13.2 in a patient on steroids. Potassium 5.2 .Telemetry sinus rhythm. Objective - Vital Signs Vital signs: Vital Signs Temp 99.0 F 11/16/16 08:00 Pulse 78 11/16/16 13:00 Resp 17 11/16/16 13:00 BP 103/70 11/16/16 13:00 Pulse Ox 93 L 11/16/16 13:00 Intake & Output 11/15/16 11/16/16 11/16/16 18:59 06:59 18:59 Intake Total 1949.404 7472.083 639.574 Output Total 815 1100 1900 Balance 548.175 48.083 -1260.426 Weight 97.3 kg 97.5 kg 97.5 kg Intake: Intake, IV Titration 423.175 348.083 229.574 Amount Insulin Regular 100 unit 0 12.142 6.870 In Sodium Chloride 0.9% 100 ml @ Per Protocol IV .Q0M [facility] Rx#:[id number] Lactated Ringers 1,000 ml 240 240 140 @ 20 mls/hr IV .Q24H [facility] Rx#:[id number] Propofol 500 mg In Empty 183.175 95.941 82.704 Bag 1 bag @ Titrate IV . Q0M [facility] Rx#:[id number] Tube Feeding 850 800 350 Other 90 60 Output: Urine 815 1100 1900 Other: Voiding Method Indwelling Catheter Indwelling Catheter Indwelling Catheter # Bowel Movements 0 0 ABP, PAP, CO, CI - Last Documented Arterial Blood Pressure 124/64 Pulmonary Artery Pressure 46/23 Cardiac Output 6.8 Cardiac Index 3.3 - Exam PHYSICAL EXAM: VITAL SIGNS: As above GENERAL: [Sedated, intubated HEENT: [Pupils equal, conjunctiva normal. Mucosa moist. Endotracheal tube present. ] NECK: [Supple, no JVD] RESPIRATORY EFFORT:[Normal] LUNGS: [Diminished throughout, bibasilar crackles, rhonchi] CARDIOVASCULAR[regular S1 and S2, no murmurs rubs or gallops, mild edema] GI: [Abdomen soft, nontender, positive bowel sounds.] PSYCH: [Alert and oriented -3, mood and affect normal.] NEURO: Unable to assess, patient sedated on Diprovan and vent dependent Microbiology 11/10/16 16:40 Lung Aspirate - Right Gram Stain - Final 11/10/16 16:40 Lung Aspirate - Right Bronchial Washings Culture - Final 11/10/16 16:40 Lung - Right Acid Fast Bacilli Smear - Final 11/10/16 16:40 Lung - Right Acid Fast Bacilli Culture - Preliminary 11/10/16 16:40 Lung - Right Fungal Culture - Preliminary - Labs CBC & Chem 7: 11/16/16 05:55 11/16/16 05:55 Labs: Abnormal Lab Results - Last 24 Hours (Table) 11/15/16 11/15/16 11/15/16 Range/Units 14:14 16:08 18:10 WBC (3.8-10.6) k/uL RBC (4.30-5.90) m/uL Hgb (13.0-17.5) gm/dL Hct (39.0-53.0) % MCV (80.0-100.0) fL Neutrophils # (1.3-7.7) k/uL APTT (22.0-30.0) sec ABG pH (7.35-7.45) ABG pO2 (83-108) mmHg ABG HCO3 (21-25) mmol/L ABG Total CO2 (19-24) mmol/L Potassium (3.5-5.1) mmol/L BUN (9-20) mg/dL Creatinine (0.66-1.25) mg/dL Glucose (74-99) mg/dL POC Glucose (mg/dL) 149 H 156 H 135 H (75-99) mg/dL Magnesium (1.6-2.3) mg/dL Alkaline Phosphatase (38-126) U/L Total Protein (6.3-8.2) g/dL Albumin (3.5-5.0) g/dL 11/15/16 11/15/16 11/16/16 Range/Units 20:12 22:19 00:09 WBC (3.8-10.6) k/uL RBC (4.30-5.90) m/uL Hgb (13.0-17.5) gm/dL Hct (39.0-53.0) % MCV (80.0-100.0) fL Neutrophils # (1.3-7.7) k/uL APTT (22.0-30.0) sec ABG pH (7.35-7.45) ABG pO2 (83-108) mmHg ABG HCO3 (21-25) mmol/L ABG Total CO2 (19-24) mmol/L Potassium (3.5-5.1) mmol/L BUN (9-20) mg/dL Creatinine (0.66-1.25) mg/dL Glucose (74-99) mg/dL POC Glucose (mg/dL) 141 H 126 H 144 H (75-99) mg/dL Magnesium (1.6-2.3) mg/dL Alkaline Phosphatase (38-126) U/L Total Protein (6.3-8.2) g/dL Albumin (3.5-5.0) g/dL 11/16/16 11/16/16 11/16/16 Range/Units 03:13 05:53 05:55 WBC 13.2 H (3.8-10.6) k/uL RBC 3.20 L (4.30-5.90) m/uL Hgb 10.7 L (13.0-17.5) gm/dL Hct 32.2 L (39.0-53.0) % MCV 100.6 H (80.0-100.0) fL Neutrophils # 10.3 H (1.3-7.7) k/uL APTT (22.0-30.0) sec ABG pH 7.46 H (7.35-7.45) ABG pO2 79 L (83-108) mmHg ABG HCO3 27 H (21-25) mmol/L ABG Total CO2 28 H (19-24) mmol/L Potassium (3.5-5.1) mmol/L BUN (9-20) mg/dL Creatinine (0.66-1.25) mg/dL Glucose (74-99) mg/dL POC Glucose (mg/dL) 126 H (75-99) mg/dL Magnesium (1.6-2.3) mg/dL Alkaline Phosphatase (38-126) U/L Total Protein (6.3-8.2) g/dL Albumin (3.5-5.0) g/dL 11/16/16 11/16/16 11/16/16 Range/Units 05:55 05:55 07:50 WBC (3.8-10.6) k/uL RBC (4.30-5.90) m/uL Hgb (13.0-17.5) gm/dL Hct (39.0-53.0) % MCV (80.0-100.0) fL Neutrophils # (1.3-7.7) k/uL APTT 19.5 L (22.0-30.0) sec ABG pH (7.35-7.45) ABG pO2 (83-108) mmHg ABG HCO3 (21-25) mmol/L ABG Total CO2 (19-24) mmol/L Potassium 5.2 H (3.5-5.1) mmol/L BUN 33 H (9-20) mg/dL Creatinine 0.62 L (0.66-1.25) mg/dL Glucose 144 H (74-99) mg/dL POC Glucose (mg/dL) 143 H (75-99) mg/dL Magnesium 2.5 H (1.6-2.3) mg/dL Alkaline Phosphatase 35 L (38-126) U/L Total Protein 6.0 L (6.3-8.2) g/dL Albumin 3.0 L (3.5-5.0) g/dL 11/16/16 11/16/16 11/16/16 Range/Units 09:57 12:19 13:47 WBC (3.8-10.6) k/uL RBC (4.30-5.90) m/uL Hgb (13.0-17.5) gm/dL Hct (39.0-53.0) % MCV (80.0-100.0) fL Neutrophils # (1.3-7.7) k/uL APTT (22.0-30.0) sec ABG pH (7.35-7.45) ABG pO2 (83-108) mmHg ABG HCO3 (21-25) mmol/L ABG Total CO2 (19-24) mmol/L Potassium (3.5-5.1) mmol/L BUN (9-20) mg/dL Creatinine (0.66-1.25) mg/dL Glucose (74-99) mg/dL POC Glucose (mg/dL) 136 H 160 H 153 H (75-99) mg/dL Magnesium (1.6-2.3) mg/dL Alkaline Phosphatase (38-126) U/L Total Protein (6.3-8.2) g/dL Albumin (3.5-5.0) g/dL Assessment and Plan Plan: 1. CAD, [Status post CABG]. 2. [Acute hypoxic respiratory failure secondary to the above]. 3. [Exacerbation COPD]. 4. [Possible early DTs, on CIWA protocol]. 5. Right upper and lower lobe collapse secondary to mucus plugging status post bronchoscopy]. 6. [Hypertension]. 7. [Ongoing Nicotine dependence, chewing tobacco 8. Bibasilar atelectasis Plan: Continue on current medication regime ,monitoring and symptomatic treatment. Maintain CIWA protocol. Continues on insulin drip, as patient is maintained on IV steroids. Close monitoring of electrolytes. GI and DVT prophylaxis in place. Further recommendations to follow. The impression and plan of care has been dictated as directed. : I performed a H&P examination of this patient and discussed the same with the dictator. I agree with the dictator's note. Any additional findings/opinions/ etc. will be noted.
[2016-11-16] MEDS: LACTATED RINGERS 1,000 ML IV SCH (16:33)
[2016-11-16 16:38] LABS: Glucose,Whole Blood 144 mg/dL (75-99)
[2016-11-16] MEDS: BISACODYL 10 MG SUPP RECTAL PRN (17:18)
--- NOTE | 2016-11-16 18:05 | P.PN ---
Subjective Principal diagnosis: Status post CABG, respiratory failure This 60-year-old gentleman is status post prior to coronary bypass surgery. Patient has been having difficulty oxygenating and has been ventilator dependent. Patient also had history of alcohol withdrawal. Adjustments are being made in the respiratory settings and cutting down on PEEP. Hemodynamically patient is otherwise stable. Kidney function remained stable. He'll output is good. Patient may require tracheostomy if his pulmonary status doesn't improve. Objective - Vital Signs Vital signs: Vital Signs Temp 100.3 F H 11/16/16 16:00 Pulse 90 11/16/16 17:00 Resp 22 11/16/16 17:00 BP 84/52 11/16/16 15:00 Pulse Ox 91 L 11/16/16 17:00 Intake & Output 11/15/16 11/16/16 11/16/16 18:59 06:59 18:59 Intake Total 3412.695 9319.083 1036.870 Output Total 815 1100 2210 Balance 548.175 48.083 -1173.130 Weight 97.3 kg 97.5 kg 97.5 kg Intake: Intake, IV Titration 423.175 348.083 376.870 Amount Insulin Regular 100 unit 0 12.142 6.870 In Sodium Chloride 0.9% 100 ml @ Per Protocol IV .Q0M [facility] Rx#:[id number] Lactated Ringers 1,000 ml 240 240 220 @ 20 mls/hr IV .Q24H [facility] Rx#:[id number] Propofol 500 mg In Empty 183.175 95.941 150.000 Bag 1 bag @ Titrate IV . Q0M [facility] Rx#:[id number] Tube Feeding 850 800 550 Other 90 110 Output: Urine 815 1100 2210 Other: Voiding Method Indwelling Catheter Indwelling Catheter Indwelling Catheter # Bowel Movements 0 0 ABP, PAP, CO, CI - Last Documented Arterial Blood Pressure 100/40 Pulmonary Artery Pressure 46/23 Cardiac Output 6.8 Cardiac Index 3.3 - Exam GENERAL EXAM: Patient is intubated and sedated HEENT: Normocephalic. NECK: No masses, no nuchal rigidity. CHEST: No chest wall deformity. LUNGS: Breath sounds at bases HEART: S1 and S2 normal with no audible mumurs or gallops. Regular rhythm, femorals equal on both sides.. ABDOMEN: No hepatosplenomegaly, normal bowel sounds, no guarding or rigidity. SKIN: No rashes CENTRAL NERVOUS SYSTEM: Sedated EXTREMITIES: No cyanosis, clubbing or edema. - Labs CBC & Chem 7: 11/16/16 05:55 11/16/16 05:55 Labs: Abnormal Lab Results - Last 24 Hours (Table) 11/15/16 11/15/16 11/15/16 Range/Units 18:10 20:12 22:19 WBC (3.8-10.6) k/uL RBC (4.30-5.90) m/uL Hgb (13.0-17.5) gm/dL Hct (39.0-53.0) % MCV (80.0-100.0) fL Neutrophils # (1.3-7.7) k/uL APTT (22.0-30.0) sec ABG pH (7.35-7.45) ABG pO2 (83-108) mmHg ABG HCO3 (21-25) mmol/L ABG Total CO2 (19-24) mmol/L Potassium (3.5-5.1) mmol/L BUN (9-20) mg/dL Creatinine (0.66-1.25) mg/dL Glucose (74-99) mg/dL POC Glucose (mg/dL) 135 H 141 H 126 H (75-99) mg/dL Magnesium (1.6-2.3) mg/dL Alkaline Phosphatase (38-126) U/L Total Protein (6.3-8.2) g/dL Albumin (3.5-5.0) g/dL 11/16/16 11/16/16 11/16/16 Range/Units 00:09 03:13 05:53 WBC (3.8-10.6) k/uL RBC (4.30-5.90) m/uL Hgb (13.0-17.5) gm/dL Hct (39.0-53.0) % MCV (80.0-100.0) fL Neutrophils # (1.3-7.7) k/uL APTT (22.0-30.0) sec ABG pH 7.46 H (7.35-7.45) ABG pO2 79 L (83-108) mmHg ABG HCO3 27 H (21-25) mmol/L ABG Total CO2 28 H (19-24) mmol/L Potassium (3.5-5.1) mmol/L BUN (9-20) mg/dL Creatinine (0.66-1.25) mg/dL Glucose (74-99) mg/dL POC Glucose (mg/dL) 144 H 126 H (75-99) mg/dL Magnesium (1.6-2.3) mg/dL Alkaline Phosphatase (38-126) U/L Total Protein (6.3-8.2) g/dL Albumin (3.5-5.0) g/dL 11/16/16 11/16/16 11/16/16 Range/Units 05:55 05:55 05:55 WBC 13.2 H (3.8-10.6) k/uL RBC 3.20 L (4.30-5.90) m/uL Hgb 10.7 L (13.0-17.5) gm/dL Hct 32.2 L (39.0-53.0) % MCV 100.6 H (80.0-100.0) fL Neutrophils # 10.3 H (1.3-7.7) k/uL APTT 19.5 L (22.0-30.0) sec ABG pH (7.35-7.45) ABG pO2 (83-108) mmHg ABG HCO3 (21-25) mmol/L ABG Total CO2 (19-24) mmol/L Potassium 5.2 H (3.5-5.1) mmol/L BUN 33 H (9-20) mg/dL Creatinine 0.62 L (0.66-1.25) mg/dL Glucose 144 H (74-99) mg/dL POC Glucose (mg/dL) (75-99) mg/dL Magnesium 2.5 H (1.6-2.3) mg/dL Alkaline Phosphatase 35 L (38-126) U/L Total Protein 6.0 L (6.3-8.2) g/dL Albumin 3.0 L (3.5-5.0) g/dL 11/16/16 11/16/16 11/16/16 Range/Units 07:50 09:57 12:19 WBC (3.8-10.6) k/uL RBC (4.30-5.90) m/uL Hgb (13.0-17.5) gm/dL Hct (39.0-53.0) % MCV (80.0-100.0) fL Neutrophils # (1.3-7.7) k/uL APTT (22.0-30.0) sec ABG pH (7.35-7.45) ABG pO2 (83-108) mmHg ABG HCO3 (21-25) mmol/L ABG Total CO2 (19-24) mmol/L Potassium (3.5-5.1) mmol/L BUN (9-20) mg/dL Creatinine (0.66-1.25) mg/dL Glucose (74-99) mg/dL POC Glucose (mg/dL) 143 H 136 H 160 H (75-99) mg/dL Magnesium (1.6-2.3) mg/dL Alkaline Phosphatase (38-126) U/L Total Protein (6.3-8.2) g/dL Albumin (3.5-5.0) g/dL 11/16/16 11/16/16 Range/Units 13:47 16:35 WBC (3.8-10.6) k/uL RBC (4.30-5.90) m/uL Hgb (13.0-17.5) gm/dL Hct (39.0-53.0) % MCV (80.0-100.0) fL Neutrophils # (1.3-7.7) k/uL APTT (22.0-30.0) sec ABG pH (7.35-7.45) ABG pO2 (83-108) mmHg ABG HCO3 (21-25) mmol/L ABG Total CO2 (19-24) mmol/L Potassium (3.5-5.1) mmol/L BUN (9-20) mg/dL Creatinine (0.66-1.25) mg/dL Glucose (74-99) mg/dL POC Glucose (mg/dL) 153 H 144 H (75-99) mg/dL Magnesium (1.6-2.3) mg/dL Alkaline Phosphatase (38-126) U/L Total Protein (6.3-8.2) g/dL Albumin (3.5-5.0) g/dL Assessment and Plan (1) Status post coronary artery bypass graft Status: Acute (2) Family history of heart disease Status: Acute (3) Hyperlipidemia Status: Acute (4) Hypertension Status: Acute (5) Nicotine dependence, chewing tobacco, uncomplicated Status: Acute Plan: Continue with respiratory support. This is being managed by book reviewer. Hemodynamically otherwise stable. Continue current medical therapy. Follow up as needed
[2016-11-16 18:09] LABS: Glucose,Whole Blood 126 mg/dL (75-99)
[2016-11-16 19:15] LABS: Glucose,Whole Blood 140 mg/dL (75-99)
--- NOTE | 2016-11-16 20:35 | PCN ---
ARTERIAL LINE PLACEMENT Indication: Hemodynamic monitoring. A time-out was completed verifying correct patient, procedure, site, positioning, and implant(s) or special equipment if applicable. Daniel's test was performed to ensure adequate perfusion. The patient's right wrist was prepped and draped in sterile fashion. 1% Lidocaine was used to anesthetize the area. An 18G Arrow arterial line was introduced into the radial artery. The catheter was threaded over the guide wire and the needle was removed with appropriate pulsatile blood return. Blood loss was minimal. The catheter was then sutured in place to the skin and a sterile dressing applied. Perfusion to the extremity distal to the point of catheter insertion was checked and found to be adequate. The patient tolerated the procedure well and there were no complications.
[2016-11-16 21:02] LABS: Glucose,Whole Blood 112 mg/dL (75-99)
[2016-11-16] MEDS: SENNOSIDES-DOCUSATE SODIUM 1 EACH TAB PO SCH (22:05)
[2016-11-16 22:12] LABS: Glucose,Whole Blood 126 mg/dL (75-99)
[2016-11-16 22:28] LABS: Ionized Calcium 4.9 mg/dL (4.5-5.3)
[2016-11-16 22:38] LABS: ALT 47 U/L (21-72); AST 41 U/L (17-59); Alkaline Phosphatase 56 U/L (38-126); Anion Gap 5 mmol/L; Blood Urea Nitrogen 40 mg/dL (9-20); Calcium 8.5 mg/dL (8.4-10.2); Carbon Dioxide 30 mmol/L (22-30); Chloride 104 mmol/L (98-107); Glucose 129 mg/dL (74-99); Magnesium 2.4 mg/dL (1.6-2.3); Non-African American GFR(MDRD) >60 (>60 ml/min/1.73 sqM); Sodium 139 mmol/L (137-145); Total Bilirubin 0.6 mg/dL (0.2-1.3); Total Protein 5.5 g/dL (6.3-8.2)
--- NOTE | 2016-11-16 22:45 | PN ---
DATE OF SERVICE: 11/16/2016 This 61-year-old gentleman admitted to the hospital after CAD/CABG on mechanical ventilation. The patient needs high flow, high percentage oxygen at this time. Seen and evaluated the patient along with nurse practitioner. Please refer to the nurse practitioner notes and impression documented as a scribe for further information. Continue to monitor. Further recommendations to follow.
[2016-11-16 23:10] LABS: Glucose,Whole Blood 153 mg/dL (75-99)
[2016-11-17] MEDS ORDERED: DEXTROSE 5% IN WATER 100 ML with AMIODARONE 150 MG IV ONE ×2 (00:14→13:45)
[2016-11-17] MEDS: PROPOFOL 500 MG in EMPTY BAG 1 BAG IV SCH ×10 (00:52→22:58)
[2016-11-17] MEDS: AMIODARONE 450 MG in DEXTROSE 5% IN WATER 250 ML IV SCH ×4 (00:53→08:05)
[2016-11-17] MEDS: HEPARIN SODIUM,PORCINE 5,000 UNIT/ML 1 ML VIAL SQ SCH ×4 (00:53→23:58)
[2016-11-17 02:20] LABS: Glucose,Whole Blood 191 mg/dL (75-99)
[2016-11-17] MEDS: IPRATROPIUM-ALBUTEROL 3 ML NEB INHALATION SCH ×6 (03:32→23:21)
[2016-11-17 04:22] LABS: Basophils % (A) 0 %; CH 33.1; CHCM 34.4; Eosinophils % (A) 0 %; HCT 30.5 % (39.0-53.0); HDW 2.36; HGB 10.5 gm/dL (13.0-17.5); Luc # (Auto) 0.25; Luc % (Auto) 2; Lymphocytes # (A) 1.2 k/uL (1.0-4.8); Lymphocytes % (A) 9 %; MCH 33.3 pg (25.0-35.0); MCHC 34.4 g/dL (31.0-37.0); MCV 96.7 fL (80.0-100.0); Monocytes # (A) 1.1 k/uL (0-1.0); Monocytes % (A) 8 %; Neutrophils # (A) 11.4 k/uL (1.3-7.7); Neutrophils % (A) 82 %; RBC 3.16 m/uL (4.30-5.90); RDW 14.3 % (11.5-15.5); WBC (Perox) 14.79
[2016-11-17 04:32] LABS: Prothrombin Time 9.9 sec (9.0-12.0)
[2016-11-17 04:48] LABS: Partial Thromboplastin Time 22.3 sec (22.0-30.0)
[2016-11-17 05:26] LABS: ABG Base Excess -2.7 mmol/L; ABG HCO3 21 mmol/L (21-25); ABG PCO2 29 mmHg (35-45); ABG PH 7.47 (7.35-7.45); ABG PO2 169 mmHg (83-108); ABG TCO2 21 mmol/L (19-24)
[2016-11-17 05:29] LABS: ALT 42 U/L (21-72); AST 31 U/L (17-59); Alkaline Phosphatase 57 U/L (38-126); Anion Gap 9 mmol/L; Blood Urea Nitrogen 48 mg/dL (9-20); Calcium 8.6 mg/dL (8.4-10.2); Carbon Dioxide 25 mmol/L (22-30); Chloride 105 mmol/L (98-107); Glucose 162 mg/dL (74-99); Magnesium 2.4 mg/dL (1.6-2.3); Non-African American GFR(MDRD) >60 (>60 ml/min/1.73 sqM); Phosphorous 5.2 mg/dL (2.5-4.5); Potassium 4.4 mmol/L (3.5-5.1); Sodium 139 mmol/L (137-145); Total Bilirubin 0.5 mg/dL (0.2-1.3); Total Protein 5.4 g/dL (6.3-8.2)
[2016-11-17 06:59] LABS: Glucose,Whole Blood 134 mg/dL (75-99)
[2016-11-17] MEDS: BUDESONIDE 1 MG/2 ML NEBU INHALATION SCH ×2 (07:42→19:22)
--- NOTE | 2016-11-17 07:56 | XR ---
EXAMINATION TYPE: XR chest 1V portable DATE OF EXAM: 11/17/2016 7:03 AM COMPARISON: NONE INDICATION: Difficulty breathing, previous abnormal chest TECHNIQUE: Single frontal view of the chest is obtained. FINDINGS: The heart size is normal. The pulmonary vasculature is normal. Left lower lobe infiltrate is present. Small left pleural effusion is not excluded. Findings appear s table. Endotracheal tube is present with tip above the stephanie. Nasogastric tube transverses the thorax. Ster notomy wires are present. IMPRESSION: 1. Left lower lobe infiltrate and/or small left pleural effusion, stable. 2. Lines and catheters discussed above
[2016-11-17 08:06] LABS: Glucose,Whole Blood 162 mg/dL (75-99)
[2016-11-17] MEDS: methylPREDNISolone SOD SUCCI 40 MG/ML 1 ML VIAL IV SCH ×2 (08:11→20:08)
[2016-11-17] MEDS: ATORVASTATIN 40 MG TAB PO SCH (08:11)
[2016-11-17] MEDS: CHLORHEXIDINE GLUCONATE 15 ML CUP MUCOUS MEM SCH ×2 (08:11→20:17)
[2016-11-17] MEDS: ASPIRIN 325 MG TAB PO SCH (08:11)
[2016-11-17] MEDS: CLOPIDOGREL 75 MG TAB PO SCH (08:11)
[2016-11-17] MEDS: PANTOPRAZOLE 40 MG/10 ML VIAL IVP SCH (08:12)
[2016-11-17] MEDS: THIAMINE 100 MG TAB PO SCH ×2 (08:12→20:08)
[2016-11-17] MEDS: METOPROLOL TARTRATE 25 MG TAB PO SCH ×2 (09:38→21:24)
[2016-11-17] MEDS: LISINOPRIL 5 MG TAB PO SCH ×2 (09:38→19:37)
--- NOTE | 2016-11-17 09:46 | P.PN ---
Subjective Principal diagnosis: Coronary artery disease, status post prior stenting to his right coronary artery. Preserved left ventricular function. Hyperlipidemia. Hypertension. ETOH abuse. POD #7 total arterial non-aortic patch off-pump double coronary artery bypass grafting using in situ skeletonized right internal mammary artery to the left anterior descending artery across the anterior midline in situ totally skeletonized left internal mammary artery to the first obtuse marginal artery. Intraoperative transesophageal echocardiogram and epi-aortic scanning. Intraoperative graft flow measurements using the [employer] system Patient had postoperative mucous plugging with increasing oxygen demand requiring bronchoscopy the night of surgery. Bronchial washings negative for bacteria/viruses to date. Pt developed postoperative alcohol withdrawal requiring increased sedation and continued mechanical ventilation. Patient remains sedated on mechanical ventilation. ABGs reviewed from this morning on 70% FiO2 with a PEEP of 13. Patient went into A. fib RVR last night , started on amiodarone drip per cardiology. Blood pressure now very marginal with systolic pressures in the high 80s low 90s and maps in the 50s. Objective - Vital Signs Vital signs: Vital Signs Temp 98.8 F 11/17/16 08:00 Pulse 104 H 11/17/16 08:09 Resp 19 11/17/16 08:00 BP 85/60 11/17/16 08:00 Pulse Ox 97 11/17/16 08:00 Intake & Output 11/16/16 11/17/16 11/17/16 18:59 06:59 18:59 Intake Total 0757.306 1436.205 468.616 Output Total 2310 440 55 Balance -1086.000 777.205 413.616 Weight 97.5 kg 99.2 kg Intake: Intake, IV Titration 464.000 437.205 338.616 Amount Amiodarone 450 mg In 248.616 Dextrose 5% in Water 250 ml @ 1 MG/MIN 34.53 mls/ hr IV .Q7H31M [facility] Rx#: [id number] Insulin Regular 100 unit 6.870 34.902 In Sodium Chloride 0.9% 100 ml @ Per Protocol IV .Q0M [facility] Rx#:[id number] Lactated Ringers 1,000 ml 260 220 40 @ 20 mls/hr IV .Q24H [facility] Rx#:[id number] Propofol 500 mg In Empty 197.130 182.303 50 Bag 1 bag @ Titrate IV . Q0M [facility] Rx#:[id number] Tube Feeding 650 750 100 Other 110 30 30 Output: Urine 2310 440 55 Other: Voiding Method Indwelling Catheter Indwelling Catheter # Bowel Movements 0 1 ABP, PAP, CO, CI - Last Documented Arterial Blood Pressure 99/49 Pulmonary Artery Pressure 46/23 Cardiac Output 6.8 Cardiac Index 3.3 - Constitutional General appearance: Present: no acute distress - Respiratory Details: Lungs sounds diminished bilaterally. Respirations even, nonlabored on mechanical ventilation. Current settings tidal volume 450, FiO2 60%, respiratory rate 20, PEEP 13. Chest x-ray reviewed. - Cardiovascular Details: S1, S2 present. Tachycardia, irregular rate and rhythm, A. fib RVR on telemetry , currently on amiodarone drip. Sternum stable. No edema present. Heart hugger/teds/SCDs present. Blood pressure marginal this time. - Gastrointestinal Gastrointestinal Comment(s): Abdomen soft, nontender, nondistended. Active bowel sounds 4 quadrants. Tube feeding infusing at 50 mL per hour per OG tube. - Genitourinary Genitourinary Comment(s): Tay present draining marginal clear yellow urine. Output 30-40 mL per hour overnight - Integumentary Integumentary Comment(s): Anterior chest incision covered with dry intact silver dressing, changed yesterday. - Neurologic Neurologic Comment(s): Patient does open eyes, but does not follow commands. - Allied health notes Allied health notes reviewed: nursing - Labs CBC & Chem 7: 11/17/16 04:00 11/17/16 04:00 Labs: Abnormal Lab Results - Last 24 Hours (Table) 11/16/16 11/16/16 11/16/16 Range/Units 09:57 12:19 13:47 WBC (3.8-10.6) k/uL RBC (4.30-5.90) m/uL Hgb (13.0-17.5) gm/dL Hct (39.0-53.0) % Neutrophils # (1.3-7.7) k/uL Monocytes # (0-1.0) k/uL ABG pH (7.35-7.45) ABG pCO2 (35-45) mmHg ABG pO2 (83-108) mmHg ABG O2 Saturation (94-97) % BUN (9-20) mg/dL Glucose (74-99) mg/dL POC Glucose (mg/dL) 136 H 160 H 153 H (75-99) mg/dL Phosphorus (2.5-4.5) mg/dL Magnesium (1.6-2.3) mg/dL Total Protein (6.3-8.2) g/dL Albumin (3.5-5.0) g/dL 11/16/16 11/16/16 11/16/16 Range/Units 16:35 18:07 19:12 WBC (3.8-10.6) k/uL RBC (4.30-5.90) m/uL Hgb (13.0-17.5) gm/dL Hct (39.0-53.0) % Neutrophils # (1.3-7.7) k/uL Monocytes # (0-1.0) k/uL ABG pH (7.35-7.45) ABG pCO2 (35-45) mmHg ABG pO2 (83-108) mmHg ABG O2 Saturation (94-97) % BUN (9-20) mg/dL Glucose (74-99) mg/dL POC Glucose (mg/dL) 144 H 126 H 140 H (75-99) mg/dL Phosphorus (2.5-4.5) mg/dL Magnesium (1.6-2.3) mg/dL Total Protein (6.3-8.2) g/dL Albumin (3.5-5.0) g/dL 11/16/16 11/16/16 11/16/16 Range/Units 21:00 22:00 22:10 WBC (3.8-10.6) k/uL RBC (4.30-5.90) m/uL Hgb (13.0-17.5) gm/dL Hct (39.0-53.0) % Neutrophils # (1.3-7.7) k/uL Monocytes # (0-1.0) k/uL ABG pH (7.35-7.45) ABG pCO2 (35-45) mmHg ABG pO2 (83-108) mmHg ABG O2 Saturation (94-97) % BUN 40 H (9-20) mg/dL Glucose 129 H (74-99) mg/dL POC Glucose (mg/dL) 112 H 126 H (75-99) mg/dL Phosphorus (2.5-4.5) mg/dL Magnesium 2.4 H (1.6-2.3) mg/dL Total Protein 5.5 L (6.3-8.2) g/dL Albumin 2.8 L (3.5-5.0) g/dL 11/16/16 11/17/16 11/17/16 Range/Units 23:08 02:17 04:00 WBC 14.0 H (3.8-10.6) k/uL RBC 3.16 L (4.30-5.90) m/uL Hgb 10.5 L (13.0-17.5) gm/dL Hct 30.5 L (39.0-53.0) % Neutrophils # 11.4 H (1.3-7.7) k/uL Monocytes # 1.1 H (0-1.0) k/uL ABG pH (7.35-7.45) ABG pCO2 (35-45) mmHg ABG pO2 (83-108) mmHg ABG O2 Saturation (94-97) % BUN (9-20) mg/dL Glucose (74-99) mg/dL POC Glucose (mg/dL) 153 H 191 H (75-99) mg/dL Phosphorus (2.5-4.5) mg/dL Magnesium (1.6-2.3) mg/dL Total Protein (6.3-8.2) g/dL Albumin (3.5-5.0) g/dL 11/17/16 11/17/16 11/17/16 Range/Units 04:00 04:57 06:46 WBC (3.8-10.6) k/uL RBC (4.30-5.90) m/uL Hgb (13.0-17.5) gm/dL Hct (39.0-53.0) % Neutrophils # (1.3-7.7) k/uL Monocytes # (0-1.0) k/uL ABG pH 7.47 H (7.35-7.45) ABG pCO2 29 L (35-45) mmHg ABG pO2 169 H (83-108) mmHg ABG O2 Saturation 100.0 H (94-97) % BUN 48 H (9-20) mg/dL Glucose 162 H (74-99) mg/dL POC Glucose (mg/dL) 134 H (75-99) mg/dL Phosphorus 5.2 H (2.5-4.5) mg/dL Magnesium 2.4 H (1.6-2.3) mg/dL Total Protein 5.4 L (6.3-8.2) g/dL Albumin 2.7 L (3.5-5.0) g/dL 11/17/16 Range/Units 08:04 WBC (3.8-10.6) k/uL RBC (4.30-5.90) m/uL Hgb (13.0-17.5) gm/dL Hct (39.0-53.0) % Neutrophils # (1.3-7.7) k/uL Monocytes # (0-1.0) k/uL ABG pH (7.35-7.45) ABG pCO2 (35-45) mmHg ABG pO2 (83-108) mmHg ABG O2 Saturation (94-97) % BUN (9-20) mg/dL Glucose (74-99) mg/dL POC Glucose (mg/dL) 162 H (75-99) mg/dL Phosphorus (2.5-4.5) mg/dL Magnesium (1.6-2.3) mg/dL Total Protein (6.3-8.2) g/dL Albumin (3.5-5.0) g/dL - Imaging and Cardiology Chest x-ray: report reviewed, image reviewed Assessment and Plan (1) Status post coronary artery bypass graft Status: Acute (2) Coronary artery disease Status: Acute (3) Family history of heart disease Status: Acute (4) History of PTCA Status: Acute (5) Hyperlipidemia Status: Acute (6) Hypertension Status: Acute (7) Nicotine dependence, chewing tobacco, uncomplicated Status: Acute Plan: 1. Continue aspirin, Lipitor, Plavix, heparin. Lopressor and lisinopril to be held for systolic blood pressure less than 100. 2. Continue amiodarone drip for atrial fibrillation. 3. Added 250 g IV push digoxin 1 today. 4. Ventilator management per pulmonology, wean O2 as tolerated. Wean Solu- Medrol per pulmonology. 5. Insulin/diabetic management per primary care service. 6. Continue [facility] protocol for alcohol withdrawal. 7. Daily labs, chest x-rays. 8. GI/DVT prophylaxis. 9. More recommendations as patient progresses. Time with Patient: Greater than 30
[2016-11-17 10:07] LABS: Glucose,Whole Blood 157 mg/dL (75-99)
[2016-11-17 10:23] LABS: Glucose,Whole Blood 155 mg/dL (75-99)
[2016-11-17] MEDS: DIGOXIN 250 MCG/ML 2 ML AMP IVP SCH (10:38)
--- NOTE | 2016-11-17 10:51 | P.PN ---
Subjective Principal diagnosis: Status post coronary artery bypass grafting, postoperative day #4. This is a 61-year-old white male status post CABG, postoperative day #1, total arterial non-aortic patch off pump double coronary artery bypass grafting using in situ skeletonized right internal mammary artery to the left anterior descending across the anterior midline in situ totally skeletonized left internal mammary artery to the first obtuse marginal artery. Postoperatively patient was on mechanical ventilation, and upon arrival to the ICU he was found to have opacified right lung, he required bronchoscopy and extraction of mucous plugs mostly in the right upper lobe and right middle lobe. Remained on mechanical ventilation overnight, however this morning his gases are showing marginal oxygenation, his pO2 is only 63 on 50% and PEEP of 5. Patient was given a weaning trial with a pressure support of 8 and CPAP, ABG in half an hour is definitely poor showing very poor oxygenation, and his O2 saturation was in the 91% range. PO2 was only 63, hence I decided not to pursue any further weaning and extubation on this patient until his oxygenation improves better. Gram stain and cultures from the right upper lobe are pending. In the meantime the patient is receiving bronchodilators for underlying COPD, and he is also on steroids for significant wheezing noted yesterday after bronchoscopy. Patient remains on DuoNeb updrafts 4 times a day and when necessary. Reevaluated today on 11/12/2016, patient is status post CABG, postoperative day # 2 remains intubated and on mechanical ventilation. Yesterday patient could not be weaned and extubated mostly because of his marginal oxygenation. His pO2 was only 63 on 50% FiO2 and pressure support of 8 and CPAP. Hence decided not to extubate the patient, today the patient is having what seems to be a picture of alcohol withdrawal as soon as the propofol was weaned off. Hence we had to go back on the propofol, and the patient will be placed on the protocol. For alcohol withdrawal. ABG this morning seems to be a bit better, pO2 is 89 pCO2 is 33 pH of 7.37. Patient is slightly metabolically acidotic. Bicarb is 19. Hemoglobin is 10.7 WBC count is 14.0. Chest x-ray showed minimal areas of bands of atelectasis at the bases, but no further areas of collapse noted in the right upper lobe and right the lobe as seen 2 days ago. Reevaluated today on 11/13/2016, patient is status post CABG, postoperative day # 3 remains intubated on mechanical ventilation. His gases are marginal. Today I awakened the patient, and I tried to evaluate his mental status, however the patient was noted to be extremely obtunded, his eyes were deviated upwards, and I could not assess his mental status because he was basically unresponsive. This was off propofol, patient also became extremely agitated, and we had to place him back on propofol. In the meantime I ordered a CT of the brain. Ending at this point. His blood pressure was noted to go high off propofol, patient was given Apresoline for high blood pressure. He is also on beta blockers. And he is on multiple other meds for hypertension. ABG today showed a pO2 of 71 pCO2 of 30 pH of 7.51, and this is on a FiO2 of 50% and PEEP of 5. Chest x-ray showed minimal atelectasis at the bases. And overall significant improvement in aeration of both lungs. Patient remains on the protocol for alcohol withdrawal in the meantime. The patient is seen again today 11/14/2016 in follow-up. He is status post CABG , postoperative day #4. He remains intubated on mechanical ventilator. Assist- control of 16, tidal volume 500, FiO2 60%, PEEP of 5. Arterial blood gases reveal a pO2 of 84, pCO2 34, pH 7.48. Mild respiratory alkalosis. Previous attempts to wean the patient failed based on significant hypertension with systolic pressure greater than 200, tachycardia as well. There was concern regarding possible alcohol withdrawal and he was started on the CIWA protocol. His initial chest x-ray had revealed a near complete white out of the right lung and he had undergone bronchoscopy with extraction of mucous plugging in the right upper and middle lobes. Today's chest x-ray show some mild pulmonary vascular congestion was small left pleural effusion/atelectasis. His current receiving lactated Ringer's at a KVO, Brovana at 40 mcg/kg/m. He is also receiving Vital HP tube feedings at 50 mL per hour which is at goal. Progress note dated 11/15/2016 This is a 61-year-old male who is status post bypass grafting. He is postop day #5. He remains intubated on mechanical ventilator. His vent settings include the assist control mode rate is 16 to be increased to 20 a tidal [place] of 500 be decreased to 450 and FiO2 of 90% and a PEEP of 5 which will be increased to 10. His arterial blood gases on those settings show a pO2 of only 84 pCO2 of 45 and appears to some 0.40. This was on 90%. He is getting lactated Ringer's at 20 mL an hour the Diprovan at 25 mics per kilogram per minute and insulin drip at 1 unit per hour and vital HP 50 with a goal of 50. Chest x-rays essentially unchanged. He does have a small left pleural effusion. Progress note dated 11/16/2016 61-year-old male who is status post bypass grafting. He is postop day #6. He is intubated and on mechanical ventilator. He's had problems with hypoxemia. We will try to increase his PEEP up to 13. Currently he is on the assist control mode rate of 2010 of I'm 4 5080% PEEP of 13. It was just increased. Blood gases on a PEEP of 10 show a PaO2 of 79 a PaCO2 of 39 and a pH of 7.46. The patient is currently on propofol at 20 mics per kilogram per minute lactated Ringer's at 20 mL an hour insulin at 1 unit per hour and vital high protein at a rate of 50 with a goal of 50. He has not made much in the way of progress. Chest x-ray though is stable. The patient was seen again today 11/17/2016 in follow-up. He is postoperative day #7. He remains intubated and on the mechanical ventilator. Current settings are assist-control 20 tidal volume 450 FiO2 60% and a PEEP of 13. Morning blood gases revealed a pO2 of 169, pCO2 of 29, pH 7.47 on 70% FiO2. He remains on lactated Ringer's at KVO. Insulin at 2.5 units per hour. Propofol at 30 mcg/m. Amiodarone at 0.5 mg/m. He is on Vital HP 50 mL per hour which is at goal. His chest x-ray reveals a left lower lobe infiltrate and evidence of fluid volume overload. Objective - Vital Signs Vital signs: Vital Signs Temp 98.8 F 11/17/16 08:00 Pulse 119 H 11/17/16 10:00 Resp 20 11/17/16 10:00 BP 85/60 11/17/16 08:00 Pulse Ox 95 11/17/16 10:00 Intake & Output 11/16/16 11/17/16 11/17/16 18:59 06:59 18:59 Intake Total 2763.181 2246.205 680.818 Output Total 2310 440 130 Balance -1086.000 777.205 550.818 Weight 97.5 kg 99.2 kg Intake: Intake, IV Titration 464.000 437.205 450.818 Amount Amiodarone 450 mg In 248.616 Dextrose 5% in Water 250 ml @ 1 MG/MIN 34.53 mls/ hr IV .Q7H31M [facility] Rx#: [id number] Insulin Regular 100 unit 6.870 34.902 In Sodium Chloride 0.9% 100 ml @ Per Protocol IV .Q0M [facility] Rx#:[id number] Lactated Ringers 1,000 ml 260 220 80 @ 20 mls/hr IV .Q24H [facility] Rx#:[id number] Propofol 500 mg In Empty 197.130 182.303 122.202 Bag 1 bag @ Titrate IV . Q0M [facility] Rx#:[id number] Tube Feeding 650 750 200 Other 110 30 30 Output: Urine 2310 440 130 Other: Voiding Method Indwelling Catheter Indwelling Catheter # Bowel Movements 0 1 ABP, PAP, CO, CI - Last Documented Arterial Blood Pressure 90/47 Pulmonary Artery Pressure 46/23 Cardiac Output 6.8 Cardiac Index 3.3 - Exam GENERAL EXAM: Intubated, sedated. HEAD: Normocephalic. EYES: Sluggish reaction of pupils, equal size. NOSE: Clear with pink turbinates. THROAT: No erythema or exudates. NECK: No masses, no JVD. CHEST: No chest wall deformity. LUNGS: Equal air entry with faint crackles in the bilateral posterior bases, more so on the left. CVS: S1 and S2 normal with no audible murmurs, regular rhythm. ABDOMEN: No hepatosplenomegaly, normal bowel sounds, no guarding or rigidity. Extremities: There is trace peripheral edema. No clubbing, no cyanosis. Peripheral pulses are intact. - Labs CBC & Chem 7: 11/17/16 04:00 11/17/16 04:00 Labs: Abnormal Lab Results - Last 24 Hours (Table) 11/16/16 11/16/16 11/16/16 Range/Units 12:19 13:47 16:35 WBC (3.8-10.6) k/uL RBC (4.30-5.90) m/uL Hgb (13.0-17.5) gm/dL Hct (39.0-53.0) % Neutrophils # (1.3-7.7) k/uL Monocytes # (0-1.0) k/uL ABG pH (7.35-7.45) ABG pCO2 (35-45) mmHg ABG pO2 (83-108) mmHg ABG O2 Saturation (94-97) % BUN (9-20) mg/dL Glucose (74-99) mg/dL POC Glucose (mg/dL) 160 H 153 H 144 H (75-99) mg/dL Phosphorus (2.5-4.5) mg/dL Magnesium (1.6-2.3) mg/dL Total Protein (6.3-8.2) g/dL Albumin (3.5-5.0) g/dL 11/16/16 11/16/16 11/16/16 Range/Units 18:07 19:12 21:00 WBC (3.8-10.6) k/uL RBC (4.30-5.90) m/uL Hgb (13.0-17.5) gm/dL Hct (39.0-53.0) % Neutrophils # (1.3-7.7) k/uL Monocytes # (0-1.0) k/uL ABG pH (7.35-7.45) ABG pCO2 (35-45) mmHg ABG pO2 (83-108) mmHg ABG O2 Saturation (94-97) % BUN (9-20) mg/dL Glucose (74-99) mg/dL POC Glucose (mg/dL) 126 H 140 H 112 H (75-99) mg/dL Phosphorus (2.5-4.5) mg/dL Magnesium (1.6-2.3) mg/dL Total Protein (6.3-8.2) g/dL Albumin (3.5-5.0) g/dL 11/16/16 11/16/16 11/16/16 Range/Units 22:00 22:10 23:08 WBC (3.8-10.6) k/uL RBC (4.30-5.90) m/uL Hgb (13.0-17.5) gm/dL Hct (39.0-53.0) % Neutrophils # (1.3-7.7) k/uL Monocytes # (0-1.0) k/uL ABG pH (7.35-7.45) ABG pCO2 (35-45) mmHg ABG pO2 (83-108) mmHg ABG O2 Saturation (94-97) % BUN 40 H (9-20) mg/dL Glucose 129 H (74-99) mg/dL POC Glucose (mg/dL) 126 H 153 H (75-99) mg/dL Phosphorus (2.5-4.5) mg/dL Magnesium 2.4 H (1.6-2.3) mg/dL Total Protein 5.5 L (6.3-8.2) g/dL Albumin 2.8 L (3.5-5.0) g/dL 11/17/16 11/17/16 11/17/16 Range/Units 02:17 04:00 04:00 WBC 14.0 H (3.8-10.6) k/uL RBC 3.16 L (4.30-5.90) m/uL Hgb 10.5 L (13.0-17.5) gm/dL Hct 30.5 L (39.0-53.0) % Neutrophils # 11.4 H (1.3-7.7) k/uL Monocytes # 1.1 H (0-1.0) k/uL ABG pH (7.35-7.45) ABG pCO2 (35-45) mmHg ABG pO2 (83-108) mmHg ABG O2 Saturation (94-97) % BUN 48 H (9-20) mg/dL Glucose 162 H (74-99) mg/dL POC Glucose (mg/dL) 191 H (75-99) mg/dL Phosphorus 5.2 H (2.5-4.5) mg/dL Magnesium 2.4 H (1.6-2.3) mg/dL Total Protein 5.4 L (6.3-8.2) g/dL Albumin 2.7 L (3.5-5.0) g/dL 11/17/16 11/17/16 11/17/16 Range/Units 04:57 06:46 08:04 WBC (3.8-10.6) k/uL RBC (4.30-5.90) m/uL Hgb (13.0-17.5) gm/dL Hct (39.0-53.0) % Neutrophils # (1.3-7.7) k/uL Monocytes # (0-1.0) k/uL ABG pH 7.47 H (7.35-7.45) ABG pCO2 29 L (35-45) mmHg ABG pO2 169 H (83-108) mmHg ABG O2 Saturation 100.0 H (94-97) % BUN (9-20) mg/dL Glucose (74-99) mg/dL POC Glucose (mg/dL) 134 H 162 H (75-99) mg/dL Phosphorus (2.5-4.5) mg/dL Magnesium (1.6-2.3) mg/dL Total Protein (6.3-8.2) g/dL Albumin (3.5-5.0) g/dL 11/17/16 11/17/16 Range/Units 10:04 10:20 WBC (3.8-10.6) k/uL RBC (4.30-5.90) m/uL Hgb (13.0-17.5) gm/dL Hct (39.0-53.0) % Neutrophils # (1.3-7.7) k/uL Monocytes # (0-1.0) k/uL ABG pH (7.35-7.45) ABG pCO2 (35-45) mmHg ABG pO2 (83-108) mmHg ABG O2 Saturation (94-97) % BUN (9-20) mg/dL Glucose (74-99) mg/dL POC Glucose (mg/dL) 157 H 155 H (75-99) mg/dL Phosphorus (2.5-4.5) mg/dL Magnesium (1.6-2.3) mg/dL Total Protein (6.3-8.2) g/dL Albumin (3.5-5.0) g/dL Assessment and Plan Plan: Impression: 1 status post CABG, postoperative day #7 2 history of nicotine dependence and suspect some component of COPD 3 history of documented coronary artery disease based on a recent cardiac catheterization 4 history of percutaneous revascularization of the proximal right coronary artery in 2000 5 history of hypertension 6 history of myocardial infarction 7 status post bronchoscopy and bronchoalveolar lavage of the right upper lobe read lobe and right lower lobe upon arrival to the ICU. Bronchial washings are pending. 8 failure to wean mostly secondary to relative hypoxemia, O2 saturation is very marginal, and it is in the 70s at 50%. And because of the mental status and suspected alcohol withdrawal is another major factor that delaying the weaning process. 9 suspect acute alcohol withdrawal considering the patient is a heavy drinker Plan: The patient was seen and evaluated by Dr. Toro. His chest x-ray ABGs and labs were reviewed. His shunt has improved on the higher PEEP. We will continue to titrate down the FiO2 and while he maintains good O2 saturations we'll start to titrate down the PEEP as well. In the interim we will obtain ultrasound of the left chest to rule out any significant left pleural effusion that may require thoracentesis. We will continue to follow make further recommendations based on his clinical status. Critical care time 36 minutes. Time with Patient: Greater than 30
[2016-11-17] MEDS: INSULIN REGULAR 100 UNIT in SODIUM CHLORIDE 0.9% 100 ML IV SCH (11:48)
[2016-11-17 11:49] LABS: Glucose,Whole Blood 174 mg/dL (75-99)
[2016-11-17 12:19] LABS: Glucose,Whole Blood 177 mg/dL (75-99)
--- NOTE | 2016-11-17 13:00 | US ---
EXAMINATION TYPE: US chest DATE OF EXAM: 11/17/2016 12:29 PM COMPARISON: NONE CLINICAL HISTORY: left pleural effusion. left pleural effusion, exam done portable in ICU EXAM MEASUREMENTS: Left Pleural Effusion fluid pocket: 2.7 cm Left skin to fluid thickness: 3.5 cm Left side marked for possible thoracentesis outside the dept. Pulmonologists are able to review the images in the patient?s EMR. IMPRESSIONS: 1. Left-sided pleural effusion
[2016-11-17] MEDS: MULTIVITAMINS, THERA LIQUID 237 ML BOTTLE PO SCH (13:08)
[2016-11-17 13:09] LABS: Glucose,Whole Blood 178 mg/dL (75-99)
[2016-11-17 14:02] LABS: Glucose,Whole Blood 160 mg/dL (75-99)
[2016-11-17] MEDS ORDERED: LIDOCAINE 2% INJ 20 MG/ML SQ ONE (14:22)
--- NOTE | 2016-11-17 14:56 | XR ---
EXAMINATION TYPE: XR chest 1V confirm line [facility] DATE OF EXAM: 11/17/2016 2:49 PM COMPARISON: Prior chest x-ray October HISTORY: Status post PICC line placement TECHNIQUE: Single frontal view of the chest is obtained. FINDINGS: Interval placement of a left-sided PICC line, the tip is at the cavoatrial junction level. No pneumothorax. There may be small effusions. Heart remains enlarged, patient is post median sterno tessa. Endotracheal and NG tube are overlying appropriate positions. There are overlying cardiac leads . There is improvement in volume status, aeration. IMPRESSION: No evident complication status post PICC line placement.
[2016-11-17 15:06] LABS: Glucose,Whole Blood 145 mg/dL (75-99)
--- NOTE | 2016-11-17 15:23 | IR ---
EXAMINATION TYPE: IR cvc insert >=5 years DATE OF EXAM: 11/17/2016 2:58 PM COMPARISON: NONE HISTORY: Needs long-term intravenous access for therapy, intubated, congestive heart failure FINDINGS: Maximal barrier technique was utilized. The skin overlying the left basilic vein was local ized with ultrasound and noted to be compressible and patent by ultrasound. An ultrasound image was obtained and submitted on patient's chart. Sterile technique utilized with the ultrasound machine. Th e skin overlying was prepped and draped and Lidocaine used for local anesthesia. A skin osmani was mad e with a scalpel. Access was gained to the vein under direct ultrasound guidance with a 21-gauge nee dle and a 0.018 inch wire was advanced. Access site was dilated with a peel-away sheath and the cath eter tailored to length. Catheter advanced centrally and a post procedure chest x-ray verified place ment with the tip at the cavoatrial junction. Catheter was fixed to the skin with suture and a steri le dressing placed. Hemostasis achieved and the catheter was aspirated and flushed with sterile sali ne. The patient remained in stable condition. IMPRESSION: STATUS POST ULTRASOUND GUIDED PICC LINE PLACEMENT, READY FOR USE. THIS PROCEDURE WAS PER FORMED BY THE UNDERSIGNED.
[2016-11-17 16:02] LABS: Glucose,Whole Blood 141 mg/dL (75-99)
[2016-11-17] MEDS: LACTATED RINGERS 1,000 ML IV SCH (17:11)
[2016-11-17 17:13] LABS: Glucose,Whole Blood 151 mg/dL (75-99)
[2016-11-17 18:18] LABS: Glucose,Whole Blood 182 mg/dL (75-99)
[2016-11-17 19:06] LABS: Glucose,Whole Blood 145 mg/dL (75-99)
[2016-11-17 20:08] LABS: Glucose,Whole Blood 127 mg/dL (75-99)
[2016-11-17] MEDS: SENNOSIDES-DOCUSATE SODIUM 1 EACH TAB PO SCH (20:11)
[2016-11-17 21:15] LABS: Glucose,Whole Blood 130 mg/dL (75-99)
[2016-11-17] MEDS: HYDROcodone/APAP 5-325MG 1 EACH TAB PO PRN (21:24)
[2016-11-17] MEDS: LORazepam 2 MG/ML SYRINGE IV PRN (21:25)
--- NOTE | 2016-11-17 21:34 | P.PN ---
Subjective Principal diagnosis: Status post CABG, respiratory failure, atrial fibrillation This 60-year-old gentleman is status post prior to coronary bypass surgery. Patient has been having difficulty oxygenating and has been ventilator dependent. Patient also had history of alcohol withdrawal. Adjustments are being made in the respiratory settings and cutting down on PEEP. Hemodynamically patient is otherwise stable. Kidney function remained stable. Patient went into atrial fibrillation last night. He was started on IV amiodarone bolus and drip. Additional amiodarone was given this morning. His heart rate in the 60-90 range. Patient also had a PICC line placement Objective - Vital Signs Vital signs: Vital Signs Temp 99.4 F 11/17/16 20:00 Pulse 61 11/17/16 20:00 Resp 20 11/17/16 20:00 BP 99/64 11/17/16 18:00 Pulse Ox 90 L 11/17/16 20:00 Intake & Output 11/17/16 11/17/16 11/18/16 06:59 18:59 06:59 Intake Total 3060.014 9431.702 247.384 Output Total 440 505 100 Balance 015.997 5167.702 147.384 Weight 99.2 kg 99.2 kg 99.2 kg Intake: Intake, IV Titration 437.205 847.702 131.384 Amount Amiodarone 450 mg In 248.616 Dextrose 5% in Water 250 ml @ 1 MG/MIN 34.53 mls/ hr IV .Q7H31M [facility] Rx#: [id number] Dextrose 5% in Water 100 150 ml @ 618 mls/hr IV .Q10M ONE with Amiodarone 150 mg Rx#:[id number] Insulin Regular 100 unit 34.902 60.517 11.190 In Sodium Chloride 0.9% 100 ml @ Per Protocol IV .Q0M [facility] Rx#:[id number] Lactated Ringers 1,000 ml 220 220 40 @ 20 mls/hr IV .Q24H [facility] Rx#:[id number] Propofol 500 mg In Empty 182.303 168.569 80.194 Bag 1 bag @ Titrate IV . Q0M [facility] Rx#:[id number] Tube Feeding 750 658 86 Other 30 90 30 Output: Urine 440 505 100 Other: Voiding Method Indwelling Catheter Indwelling Catheter Indwelling Catheter # Bowel Movements 1 1 ABP, PAP, CO, CI - Last Documented Arterial Blood Pressure 119/72 Pulmonary Artery Pressure 46/23 Cardiac Output 6.8 Cardiac Index 3.3 - Exam GENERAL EXAM: Patient is intubated and sedated HEENT: Normocephalic. NECK: No masses, no nuchal rigidity. CHEST: No chest wall deformity. LUNGS: Breath sounds at bases HEART: S1 and S2 normal with no audible mumurs or gallops. Regular rhythm, femorals equal on both sides.. ABDOMEN: No hepatosplenomegaly, normal bowel sounds, no guarding or rigidity. SKIN: No rashes CENTRAL NERVOUS SYSTEM: Sedated EXTREMITIES: No cyanosis, clubbing or edema. - Labs CBC & Chem 7: 11/17/16 04:00 11/17/16 04:00 Labs: Abnormal Lab Results - Last 24 Hours (Table) 11/16/16 11/16/16 11/16/16 Range/Units 22:00 22:10 23:08 WBC (3.8-10.6) k/uL RBC (4.30-5.90) m/uL Hgb (13.0-17.5) gm/dL Hct (39.0-53.0) % Neutrophils # (1.3-7.7) k/uL Monocytes # (0-1.0) k/uL ABG pH (7.35-7.45) ABG pCO2 (35-45) mmHg ABG pO2 (83-108) mmHg ABG O2 Saturation (94-97) % BUN 40 H (9-20) mg/dL Glucose 129 H (74-99) mg/dL POC Glucose (mg/dL) 126 H 153 H (75-99) mg/dL Phosphorus (2.5-4.5) mg/dL Magnesium 2.4 H (1.6-2.3) mg/dL Total Protein 5.5 L (6.3-8.2) g/dL Albumin 2.8 L (3.5-5.0) g/dL 11/17/16 11/17/16 11/17/16 Range/Units 02:17 04:00 04:00 WBC 14.0 H (3.8-10.6) k/uL RBC 3.16 L (4.30-5.90) m/uL Hgb 10.5 L (13.0-17.5) gm/dL Hct 30.5 L (39.0-53.0) % Neutrophils # 11.4 H (1.3-7.7) k/uL Monocytes # 1.1 H (0-1.0) k/uL ABG pH (7.35-7.45) ABG pCO2 (35-45) mmHg ABG pO2 (83-108) mmHg ABG O2 Saturation (94-97) % BUN 48 H (9-20) mg/dL Glucose 162 H (74-99) mg/dL POC Glucose (mg/dL) 191 H (75-99) mg/dL Phosphorus 5.2 H (2.5-4.5) mg/dL Magnesium 2.4 H (1.6-2.3) mg/dL Total Protein 5.4 L (6.3-8.2) g/dL Albumin 2.7 L (3.5-5.0) g/dL 11/17/16 11/17/16 11/17/16 Range/Units 04:57 06:46 08:04 WBC (3.8-10.6) k/uL RBC (4.30-5.90) m/uL Hgb (13.0-17.5) gm/dL Hct (39.0-53.0) % Neutrophils # (1.3-7.7) k/uL Monocytes # (0-1.0) k/uL ABG pH 7.47 H (7.35-7.45) ABG pCO2 29 L (35-45) mmHg ABG pO2 169 H (83-108) mmHg ABG O2 Saturation 100.0 H (94-97) % BUN (9-20) mg/dL Glucose (74-99) mg/dL POC Glucose (mg/dL) 134 H 162 H (75-99) mg/dL Phosphorus (2.5-4.5) mg/dL Magnesium (1.6-2.3) mg/dL Total Protein (6.3-8.2) g/dL Albumin (3.5-5.0) g/dL 11/17/16 11/17/16 11/17/16 Range/Units 10:04 10:20 11:46 WBC (3.8-10.6) k/uL RBC (4.30-5.90) m/uL Hgb (13.0-17.5) gm/dL Hct (39.0-53.0) % Neutrophils # (1.3-7.7) k/uL Monocytes # (0-1.0) k/uL ABG pH (7.35-7.45) ABG pCO2 (35-45) mmHg ABG pO2 (83-108) mmHg ABG O2 Saturation (94-97) % BUN (9-20) mg/dL Glucose (74-99) mg/dL POC Glucose (mg/dL) 157 H 155 H 174 H (75-99) mg/dL Phosphorus (2.5-4.5) mg/dL Magnesium (1.6-2.3) mg/dL Total Protein (6.3-8.2) g/dL Albumin (3.5-5.0) g/dL 11/17/16 11/17/16 11/17/16 Range/Units 12:17 13:05 14:00 WBC (3.8-10.6) k/uL RBC (4.30-5.90) m/uL Hgb (13.0-17.5) gm/dL Hct (39.0-53.0) % Neutrophils # (1.3-7.7) k/uL Monocytes # (0-1.0) k/uL ABG pH (7.35-7.45) ABG pCO2 (35-45) mmHg ABG pO2 (83-108) mmHg ABG O2 Saturation (94-97) % BUN (9-20) mg/dL Glucose (74-99) mg/dL POC Glucose (mg/dL) 177 H 178 H 160 H (75-99) mg/dL Phosphorus (2.5-4.5) mg/dL Magnesium (1.6-2.3) mg/dL Total Protein (6.3-8.2) g/dL Albumin (3.5-5.0) g/dL 11/17/16 11/17/16 11/17/16 Range/Units 15:03 16:00 17:10 WBC (3.8-10.6) k/uL RBC (4.30-5.90) m/uL Hgb (13.0-17.5) gm/dL Hct (39.0-53.0) % Neutrophils # (1.3-7.7) k/uL Monocytes # (0-1.0) k/uL ABG pH (7.35-7.45) ABG pCO2 (35-45) mmHg ABG pO2 (83-108) mmHg ABG O2 Saturation (94-97) % BUN (9-20) mg/dL Glucose (74-99) mg/dL POC Glucose (mg/dL) 145 H 141 H 151 H (75-99) mg/dL Phosphorus (2.5-4.5) mg/dL Magnesium (1.6-2.3) mg/dL Total Protein (6.3-8.2) g/dL Albumin (3.5-5.0) g/dL 11/17/16 11/17/16 11/17/16 Range/Units 18:15 19:04 20:05 WBC (3.8-10.6) k/uL RBC (4.30-5.90) m/uL Hgb (13.0-17.5) gm/dL Hct (39.0-53.0) % Neutrophils # (1.3-7.7) k/uL Monocytes # (0-1.0) k/uL ABG pH (7.35-7.45) ABG pCO2 (35-45) mmHg ABG pO2 (83-108) mmHg ABG O2 Saturation (94-97) % BUN (9-20) mg/dL Glucose (74-99) mg/dL POC Glucose (mg/dL) 182 H 145 H 127 H (75-99) mg/dL Phosphorus (2.5-4.5) mg/dL Magnesium (1.6-2.3) mg/dL Total Protein (6.3-8.2) g/dL Albumin (3.5-5.0) g/dL 11/17/16 Range/Units 21:13 WBC (3.8-10.6) k/uL RBC (4.30-5.90) m/uL Hgb (13.0-17.5) gm/dL Hct (39.0-53.0) % Neutrophils # (1.3-7.7) k/uL Monocytes # (0-1.0) k/uL ABG pH (7.35-7.45) ABG pCO2 (35-45) mmHg ABG pO2 (83-108) mmHg ABG O2 Saturation (94-97) % BUN (9-20) mg/dL Glucose (74-99) mg/dL POC Glucose (mg/dL) 130 H (75-99) mg/dL Phosphorus (2.5-4.5) mg/dL Magnesium (1.6-2.3) mg/dL Total Protein (6.3-8.2) g/dL Albumin (3.5-5.0) g/dL Assessment and Plan (1) Status post coronary artery bypass graft Status: Acute (2) Family history of heart disease Status: Acute (3) Hyperlipidemia Status: Acute (4) Hypertension Status: Acute (5) Nicotine dependence, chewing tobacco, uncomplicated Status: Acute (6) Atrial fibrillation Status: Acute Plan: Patient developed atrial fibrillation last night requiring IV amiodarone. Patient is still having difficulty with oxygenation. Adjustments are being made by grubber. Patient may require tracheostomy. Prognosis is still guarded
[2016-11-17 22:00] LABS: Glucose,Whole Blood 119 mg/dL (75-99)
[2016-11-17] MEDS: MORPHINE SULFATE 2 MG/ML SYRINGE IVP PRN (22:59)
[2016-11-17 23:55] LABS: Glucose,Whole Blood 142 mg/dL (75-99)
[2016-11-18] MEDS: LORazepam 2 MG/ML SYRINGE IV PRN ×2 (00:48→05:46)
[2016-11-18 02:30] LABS: Glucose,Whole Blood 140 mg/dL (75-99)
[2016-11-18] MEDS: HYDROcodone/APAP 5-325MG 1 EACH TAB PO PRN ×2 (02:30→05:44)
[2016-11-18] MEDS: IPRATROPIUM-ALBUTEROL 3 ML NEB INHALATION SCH ×6 (03:34→23:39)
[2016-11-18 04:01] LABS: Glucose,Whole Blood 137 mg/dL (75-99)
[2016-11-18 04:19] LABS: Basophils % (A) 0 %; CH 32.9; CHCM 33.4; Eosinophils % (A) 0 %; HCT 29.2 % (39.0-53.0); HDW 2.26; HGB 9.6 gm/dL (13.0-17.5); Luc # (Auto) 0.22; Luc % (Auto) 2; Lymphocytes # (A) 1.2 k/uL (1.0-4.8); Lymphocytes % (A) 8 %; MCH 32.5 pg (25.0-35.0); MCHC 32.9 g/dL (31.0-37.0); MCV 98.8 fL (80.0-100.0); Mean Platelet Volume 7.1; Monocytes # (A) 0.9 k/uL (0-1.0); Monocytes % (A) 6 %; Neutrophils # (A) 11.8 k/uL (1.3-7.7); Neutrophils % (A) 84 %; RBC 2.96 m/uL (4.30-5.90); RDW 13.9 % (11.5-15.5); WBC 14.1 k/uL (3.8-10.6); WBC (Perox) 15.06
[2016-11-18] MEDS: AMIODARONE 450 MG in DEXTROSE 5% IN WATER 250 ML IV SCH ×4 (04:52→05:43)
[2016-11-18 04:58] LABS: ALT 47 U/L (21-72); AST 32 U/L (17-59); Alkaline Phosphatase 57 U/L (38-126); Anion Gap 8 mmol/L; Blood Urea Nitrogen 52 mg/dL (9-20); Calcium 8.4 mg/dL (8.4-10.2); Carbon Dioxide 27 mmol/L (22-30); Chloride 106 mmol/L (98-107); Glucose 132 mg/dL (74-99); Non-African American GFR(MDRD) >60 (>60 ml/min/1.73 sqM); Phosphorous 4.4 mg/dL (2.5-4.5); Potassium 4.3 mmol/L (3.5-5.1); Sodium 141 mmol/L (137-145); Total Bilirubin 0.5 mg/dL (0.2-1.3); Total Protein 5.3 g/dL (6.3-8.2)
[2016-11-18 05:22] LABS: ABG Base Excess 2.5 mmol/L; ABG HCO3 26 mmol/L (21-25); ABG PCO2 38 mmHg (35-45); ABG PH 7.46 (7.35-7.45); ABG PO2 92 mmHg (83-108); ABG TCO2 27 mmol/L (19-24)
[2016-11-18 05:25] LABS: Partial Thromboplastin Time 22.2 sec (22.0-30.0)
[2016-11-18] MEDS: PROPOFOL 500 MG in EMPTY BAG 1 BAG IV SCH ×2 (05:44→10:14)
[2016-11-18 07:14] LABS: Glucose,Whole Blood 119 mg/dL (75-99)
--- NOTE | 2016-11-18 07:33 | XR ---
EXAMINATION TYPE: XR chest 1V portable DATE OF EXAM: 11/18/2016 6:33 AM Comparison: 11/17/2016 Clinical History: 61-year-old male with tube placement Findings: ET tube is satisfactory. NG tube courses below the diaphragm. Median sternotomy wires are present wit h post-CABG clips in the mediastinum. Heart remains mildly enlarged. Mild diffuse interstitial promin ence is relatively similar. Left PICC tip appears to be in the right atrium. There is a [id number] rate left pleural effusion with adjacent left basilar opacity. Impression: 1. Correlate for continued mild pulmonary vascular congestion. 2. Small to moderate left pleural effusion with adjacent atelectasis and/or consolidation, slightly i ncreased in the interval.
--- NOTE | 2016-11-18 07:43 | PN ---
DATE OF SERVICE: 11/17/2016 This 61-year-old gentleman who was admitted after CAD, CABG also had acute hypoxic respiratory failure. The patient is on 50% FiO2. Possible delirium tremens also seen. Seen and evaluated the patient along with the nurse practitioner. Please refer to the nurse practitioner notes and impression documented for further information. See orders for details.
--- NOTE | 2016-11-18 08:08 | P.PN ---
Subjective Date of service 11/17/2016. Progress note being dictated for Dr. Jordan. Interval history: This is a 61-year-old gentleman status post CABG, status post bronchoscopy related to significant mucus plugging, failure to wean, suspected DTs , history of EtOH abuse and multiple other medical issues. ABGs noted, FiO2 weaned down to 50%, peep maintained at +13. Maintained on amiodarone, diprovan, CIWA protocol and insulin drips. During the night patient went into A. fib with RVR bolused and placed on amiodarone drip .chest x-ray reporting left lower lobe infiltrate, fluid volume overload.Ultrasound reporting left pleural effusion fluid pocket 2.7 cm, marked for potential thoracentesis. Unable to perform review of systems: Patient intubated and sedated Active Medications Hydrocodone Bitart/Acetaminophen (Henry 5-325) 2 each PO Q4HR PRN PRN Reason: Severe Pain Last Admin: 11/18/16 05:44 Dose: 2 each Hydrocodone Bitart/Acetaminophen (Henry 5-325) 1 each PO Q4HR PRN PRN Reason: Moderate Pain Albuterol/Ipratropium (Duoneb 0.5 Mg-3 Mg/3 Ml Soln) 3 ml INHALATION RT-Q4H COUNT INCLUDES THE [facility] Last Admin: 11/18/16 03:34 Dose: 3 ml Albuterol/Ipratropium (Duoneb 0.5 Mg-3 Mg/3 Ml Soln) 3 ml INHALATION RT-Q2H PRN PRN Reason: Shortness Of Breath Or Wheezing Amiodarone HCl (Cordarone) 300 mg PO BID COUNT INCLUDES THE [facility] Aspirin (Aspirin) 325 mg PO DAILY COUNT INCLUDES THE [facility] Last Admin: 11/17/16 08:11 Dose: 325 mg Atorvastatin Calcium (Lipitor) 40 mg PO DAILY COUNT INCLUDES THE [facility] Last Admin: 11/17/16 08:11 Dose: 40 mg Benzocaine (Hurricaine [place]) 1 applic MUCOUS MEM QID PRN PRN Reason: Mouth Irritation Last Admin: 11/14/16 11:36 Dose: 1 applic Benzocaine/Menthol (Cepacol Lozenge) 1 each MUCOUS MEM Q2H PRN PRN Reason: Sore Throat Bisacodyl (Dulcolax) 10 mg RECTAL DAILY PRN PRN Reason: Constipation Last Admin: 11/16/16 17:18 Dose: 10 mg Budesonide (Pulmicort) 1 mg INHALATION RT-BID COUNT INCLUDES THE [facility] Last Admin: 11/17/16 19:22 Dose: 1 mg Chlorhexidine Gluconate (Peridex) 15 ml MUCOUS MEM BID COUNT INCLUDES THE [facility] Last Admin: 11/17/16 20:17 Dose: 15 ml Clopidogrel Bisulfate (Plavix) 75 mg PO DAILY COUNT INCLUDES THE [facility] Last Admin: 11/17/16 08:11 Dose: 75 mg Digoxin (Lanoxin) 250 mcg IVP DAILY COUNT INCLUDES THE [facility] Last Admin: 11/17/16 10:38 Dose: 250 mcg Heparin Sodium (Porcine) (Heparin) 5,000 unit SQ Q8HR COUNT INCLUDES THE [facility] Last Admin: 11/17/16 23:58 Dose: 5,000 unit Insulin Human Regular 100 unit (/ Sodium Chloride) 101 mls @ 0 mls/hr IV .Q0M COUNT INCLUDES THE [facility]; Per Protocol PRN Reason: Protocol Last Titration: 11/17/16 23:55 Dose: 5 units/hr, 5.05 mls/hr Lactated Ringer's (Lactated Ringers) 1,000 mls @ 20 mls/hr IV .Q24H COUNT INCLUDES THE [facility] Last Admin: 11/17/16 17:11 Dose: 20 mls/hr Propofol 500 mg/ IV Solution 50 mls @ 0 mls/hr IV .Q0M COUNT INCLUDES THE [facility]; Titrate PRN Reason: Protocol Last Titration: 11/18/16 06:58 Dose: 15 mcg/kg/min, 8.76 mls/hr Iron/Minerals/Multivitamins (Theragran Liquid) 15 ml PO DAILY@1200 [facility] Last Admin: 11/17/16 13:08 Dose: 15 ml Lisinopril (Zestril) 5 mg PO BID COUNT INCLUDES THE [facility] Last Admin: 11/17/16 19:37 Dose: Not Given Lorazepam (Ativan) 1 mg IV Q2HR PRN PRN Reason: CIWA 8 or 9 Last Admin: 11/17/16 21:25 Dose: 1 mg Lorazepam (Ativan) 1 mg IV Q1HR PRN PRN Reason: CIWA 10 to 15 Last Admin: 11/15/16 03:51 Dose: 1 mg Lorazepam (Ativan) 2 mg IV Q1HR PRN PRN Reason: CIWA 16 or higher Last Admin: 11/18/16 05:46 Dose: 2 mg Magnesium Hydroxide (Milk Of Magnesia) 2,400 mg PO BID PRN PRN Reason: Constipation Methylprednisolone Sodium Succinate (Solu-Medrol) 40 mg IV Q12HR COUNT INCLUDES THE [facility] Last Admin: 11/17/16 20:08 Dose: 40 mg Metoclopramide HCl (Reglan) 10 mg IVP Q4H PRN PRN Reason: Nausea And Vomiting Metoprolol Tartrate (Lopressor) 25 mg PO BID COUNT INCLUDES THE [facility] Last Admin: 11/17/16 21:24 Dose: 25 mg Miscellaneous Information (Magnesium Per Protocol) 1 each MISCELLANE DAILY PRN ; Protocol PRN Reason: Per Protocol Miscellaneous Information (Phosphorus Per Protocol) 1 each MISCELLANE DAILY PRN ; Protocol PRN Reason: Per Protocol Miscellaneous Information (Potassium Per Protocol) 1 each MISCELLANE DAILY PRN ; Protocol PRN Reason: Per Protocol Morphine Sulfate (Morphine Sulfate (Inj)) 2 mg IVP Q2H PRN PRN Reason: Severe Pain Last Admin: 11/17/16 22:59 Dose: 2 mg Ondansetron HCl (Zofran) 4 mg IVP Q6HR PRN PRN Reason: Nausea And Vomiting Pantoprazole Sodium (Protonix) 40 mg IVP DAILY COUNT INCLUDES THE [facility] Last Admin: 11/17/16 08:12 Dose: 40 mg Senna/Docusate Sodium (Senokot-S) 2 each PO HS COUNT INCLUDES THE [facility] Last Admin: 11/17/16 20:11 Dose: 2 each Sodium Chloride (Saline Flush) 10 ml IV BID COUNT INCLUDES THE [facility] Last Admin: 11/17/16 20:08 Dose: 10 ml Sodium Chloride (Saline Flush) 20 ml IV Q4HR PRN PRN Reason: PICC Line Sodium Chloride (Saline Flush) 10 ml IV WEEKLY COUNT INCLUDES THE [facility] Sodium Chloride (Saline Flush) 10 ml IV Q4HR PRN PRN Reason: PICC Line Thiamine HCl (Vitamin B-1) 100 mg PO BID COUNT INCLUDES THE [facility] Last Admin: 11/17/16 20:08 Dose: 100 mg Objective - Vital Signs Vital signs: Vital Signs Temp 98.7 F 11/17/16 16:00 Pulse 64 11/17/16 17:21 Resp 22 11/17/16 17:00 BP 99/64 11/17/16 17:00 Pulse Ox 89 L 11/17/16 17:00 Intake & Output 11/16/16 11/17/16 11/17/16 18:59 06:59 18:59 Intake Total 9019.174 1907.205 1427.023 Output Total 2310 440 455 Balance -1086.000 777.205 972.023 Weight 97.5 kg 99.2 kg 99.2 kg Intake: Intake, IV Titration 464.000 437.205 808.023 Amount Amiodarone 450 mg In 248.616 Dextrose 5% in Water 250 ml @ 1 MG/MIN 34.53 mls/ hr IV .Q7H31M [facility] Rx#: [id number] Dextrose 5% in Water 100 150 ml @ 618 mls/hr IV .Q10M ONE with Amiodarone 150 mg Rx#:[id number] Insulin Regular 100 unit 6.870 34.902 45.838 In Sodium Chloride 0.9% 100 ml @ Per Protocol IV .Q0M [facility] Rx#:[id number] Lactated Ringers 1,000 ml 260 220 200 @ 20 mls/hr IV .Q24H [facility] Rx#:[id number] Propofol 500 mg In Empty 197.130 182.303 163.569 Bag 1 bag @ Titrate IV . Q0M COUNT INCLUDES THE [facility] Rx#:[id number] Tube Feeding 650 750 529 Other 110 30 90 Output: Urine 2310 440 455 Other: Voiding Method Indwelling Catheter Indwelling Catheter Indwelling Catheter # Bowel Movements 0 1 1 ABP, PAP, CO, CI - Last Documented Arterial Blood Pressure 121/51 Pulmonary Artery Pressure 46/23 Cardiac Output 6.8 Cardiac Index 3.3 - Exam PHYSICAL EXAM: VITAL SIGNS: As above GENERAL: [Sedated, intubated HEENT: [Pupils equal, conjunctiva normal. Mucosa moist. Endotracheal tube present. ] NECK: [Supple, no JVD] RESPIRATORY EFFORT:[Normal] LUNGS: [Diminished throughout, bibasilar crackles greater on the left, rhonchi] CARDIOVASCULAR[regular S1 and S2, no murmurs rubs or gallops, mild edema] GI: [Abdomen soft, nontender, positive bowel sounds.] NEURO: Unable to assess, patient sedated on Diprovan and vent dependent Microbiology 11/10/16 16:40 Lung Aspirate - Right Gram Stain - Final 11/10/16 16:40 Lung Aspirate - Right Bronchial Washings Culture - Final 11/10/16 16:40 Lung - Right Acid Fast Bacilli Smear - Final 11/10/16 16:40 Lung - Right Acid Fast Bacilli Culture - Preliminary 11/10/16 16:40 Lung - Right Fungal Culture - Preliminary - Labs CBC & Chem 7: 11/18/16 04:00 11/18/16 04:00 Labs: Abnormal Lab Results - Last 24 Hours (Table) 11/16/16 11/16/16 11/16/16 Range/Units 18:07 19:12 21:00 WBC (3.8-10.6) k/uL RBC (4.30-5.90) m/uL Hgb (13.0-17.5) gm/dL Hct (39.0-53.0) % Neutrophils # (1.3-7.7) k/uL Monocytes # (0-1.0) k/uL ABG pH (7.35-7.45) ABG pCO2 (35-45) mmHg ABG pO2 (83-108) mmHg ABG O2 Saturation (94-97) % BUN (9-20) mg/dL Glucose (74-99) mg/dL POC Glucose (mg/dL) 126 H 140 H 112 H (75-99) mg/dL Phosphorus (2.5-4.5) mg/dL Magnesium (1.6-2.3) mg/dL Total Protein (6.3-8.2) g/dL Albumin (3.5-5.0) g/dL 11/16/16 11/16/16 11/16/16 Range/Units 22:00 22:10 23:08 WBC (3.8-10.6) k/uL RBC (4.30-5.90) m/uL Hgb (13.0-17.5) gm/dL Hct (39.0-53.0) % Neutrophils # (1.3-7.7) k/uL Monocytes # (0-1.0) k/uL ABG pH (7.35-7.45) ABG pCO2 (35-45) mmHg ABG pO2 (83-108) mmHg ABG O2 Saturation (94-97) % BUN 40 H (9-20) mg/dL Glucose 129 H (74-99) mg/dL POC Glucose (mg/dL) 126 H 153 H (75-99) mg/dL Phosphorus (2.5-4.5) mg/dL Magnesium 2.4 H (1.6-2.3) mg/dL Total Protein 5.5 L (6.3-8.2) g/dL Albumin 2.8 L (3.5-5.0) g/dL 11/17/16 11/17/16 11/17/16 Range/Units 02:17 04:00 04:00 WBC 14.0 H (3.8-10.6) k/uL RBC 3.16 L (4.30-5.90) m/uL Hgb 10.5 L (13.0-17.5) gm/dL Hct 30.5 L (39.0-53.0) % Neutrophils # 11.4 H (1.3-7.7) k/uL Monocytes # 1.1 H (0-1.0) k/uL ABG pH (7.35-7.45) ABG pCO2 (35-45) mmHg ABG pO2 (83-108) mmHg ABG O2 Saturation (94-97) % BUN 48 H (9-20) mg/dL Glucose 162 H (74-99) mg/dL POC Glucose (mg/dL) 191 H (75-99) mg/dL Phosphorus 5.2 H (2.5-4.5) mg/dL Magnesium 2.4 H (1.6-2.3) mg/dL Total Protein 5.4 L (6.3-8.2) g/dL Albumin 2.7 L (3.5-5.0) g/dL 11/17/16 11/17/16 11/17/16 Range/Units 04:57 06:46 08:04 WBC (3.8-10.6) k/uL RBC (4.30-5.90) m/uL Hgb (13.0-17.5) gm/dL Hct (39.0-53.0) % Neutrophils # (1.3-7.7) k/uL Monocytes # (0-1.0) k/uL ABG pH 7.47 H (7.35-7.45) ABG pCO2 29 L (35-45) mmHg ABG pO2 169 H (83-108) mmHg ABG O2 Saturation 100.0 H (94-97) % BUN (9-20) mg/dL Glucose (74-99) mg/dL POC Glucose (mg/dL) 134 H 162 H (75-99) mg/dL Phosphorus (2.5-4.5) mg/dL Magnesium (1.6-2.3) mg/dL Total Protein (6.3-8.2) g/dL Albumin (3.5-5.0) g/dL 11/17/16 11/17/16 11/17/16 Range/Units 10:04 10:20 11:46 WBC (3.8-10.6) k/uL RBC (4.30-5.90) m/uL Hgb (13.0-17.5) gm/dL Hct (39.0-53.0) % Neutrophils # (1.3-7.7) k/uL Monocytes # (0-1.0) k/uL ABG pH (7.35-7.45) ABG pCO2 (35-45) mmHg ABG pO2 (83-108) mmHg ABG O2 Saturation (94-97) % BUN (9-20) mg/dL Glucose (74-99) mg/dL POC Glucose (mg/dL) 157 H 155 H 174 H (75-99) mg/dL Phosphorus (2.5-4.5) mg/dL Magnesium (1.6-2.3) mg/dL Total Protein (6.3-8.2) g/dL Albumin (3.5-5.0) g/dL 11/17/16 11/17/16 11/17/16 Range/Units 12:17 13:05 14:00 WBC (3.8-10.6) k/uL RBC (4.30-5.90) m/uL Hgb (13.0-17.5) gm/dL Hct (39.0-53.0) % Neutrophils # (1.3-7.7) k/uL Monocytes # (0-1.0) k/uL ABG pH (7.35-7.45) ABG pCO2 (35-45) mmHg ABG pO2 (83-108) mmHg ABG O2 Saturation (94-97) % BUN (9-20) mg/dL Glucose (74-99) mg/dL POC Glucose (mg/dL) 177 H 178 H 160 H (75-99) mg/dL Phosphorus (2.5-4.5) mg/dL Magnesium (1.6-2.3) mg/dL Total Protein (6.3-8.2) g/dL Albumin (3.5-5.0) g/dL 11/17/16 11/17/16 11/17/16 Range/Units 15:03 16:00 17:10 WBC (3.8-10.6) k/uL RBC (4.30-5.90) m/uL Hgb (13.0-17.5) gm/dL Hct (39.0-53.0) % Neutrophils # (1.3-7.7) k/uL Monocytes # (0-1.0) k/uL ABG pH (7.35-7.45) ABG pCO2 (35-45) mmHg ABG pO2 (83-108) mmHg ABG O2 Saturation (94-97) % BUN (9-20) mg/dL Glucose (74-99) mg/dL POC Glucose (mg/dL) 145 H 141 H 151 H (75-99) mg/dL Phosphorus (2.5-4.5) mg/dL Magnesium (1.6-2.3) mg/dL Total Protein (6.3-8.2) g/dL Albumin (3.5-5.0) g/dL Assessment and Plan Plan: 1. CAD, [Status post CABG]. 2. [Acute hypoxic respiratory failure secondary to the above]. 3. [Exacerbation COPD]. 4. [Possible early DTs, on CIWA protocol]. 5. Right upper and lower lobe collapse secondary to mucus plugging status post bronchoscopy]. 6. [Hypertension]. 7. [Ongoing Nicotine dependence, chewing tobacco 8. Bibasilar atelectasis 9. Left pleural effusion 10. A. fib with RVR Plan: Continue on current medication regime , amiodarone drip, IV steroids, nebulized bronchodilators , insulin drip monitoring and symptomatic treatment. Possible thoracentesis, left chest marked per ultrasound. Maintain CIWA protocol. GI and DVT prophylaxis in place. Further recommendations to follow. The impression and plan of care has been dictated as directed. : I performed a H&P examination of this patient and discussed the same with the dictator. I agree with the dictator's note. Any additional findings/opinions/ etc. will be noted.
[2016-11-18] MEDS: BUDESONIDE 1 MG/2 ML NEBU INHALATION SCH ×2 (08:19→20:35)
[2016-11-18 08:20] LABS: Glucose,Whole Blood 132 mg/dL (75-99)
--- NOTE | 2016-11-18 08:28 | P.PN ---
Subjective Progress note dated 11/15/2016 This is a 61-year-old male who is status post bypass grafting. He is postop day #5. He remains intubated on mechanical ventilator. His vent settings include the assist control mode rate is 16 to be increased to 20 a tidal [place] of 500 be decreased to 450 and FiO2 of 90% and a PEEP of 5 which will be increased to 10. His arterial blood gases on those settings show a pO2 of only 84 pCO2 of 45 and appears to some 0.40. This was on 90%. He is getting lactated Ringer's at 20 mL an hour the Diprovan at 25 mics per kilogram per minute and insulin drip at 1 unit per hour and vital HP 50 with a goal of 50. Chest x-rays essentially unchanged. He does have a small left pleural effusion. Progress note dated 11/16/2016 61-year-old male who is status post bypass grafting. He is postop day #6. He is intubated and on mechanical ventilator. He's had problems with hypoxemia. We will try to increase his PEEP up to 13. Currently he is on the assist control mode rate of 2010 of I'm 4 5080% PEEP of 13. It was just increased. Blood gases on a PEEP of 10 show a PaO2 of 79 a PaCO2 of 39 and a pH of 7.46. The patient is currently on propofol at 20 mics per kilogram per minute lactated Ringer's at 20 mL an hour insulin at 1 unit per hour and vital high protein at a rate of 50 with a goal of 50. He has not made much in the way of progress. Chest x-ray though is stable. Progress note dated 11/18/2016 61-year-old male status post bypass grafting. He is postop day #8. Surgery remains on the mechanical ventilator. Still requiring high concentrations of oxygen and high PEEP levels. Likely has developed acute lung injury/ARDS. The patient is currently on lactated Ringer's at 20 mL an hour. The patient's also on vital high protein at a rate of 43 with a goal of 43 mL an hour. Receiving propofol at 15 mics per kilogram per minute and insulin drip at 4 units an hour. The patient's vent settings with the assist control mode rate of 20 tidal volume 450 FiO2 80% PEEP of 13. Blood gases show a PaO2 of 92 a pCO2 of 38 patient some 0.46. In my opinion, all that's patient starts to show some significant improvement and, he likely end up with a tracheostomy and a feeding tube. His overall prognosis remains very poor as he is not really making much progress. Yesterday we did him down to 60% and 13 a PEEP and I thought that point I had broken shot and improved his respiratory status but today I see is back up to 80%. Again I think if he doesn't show much improvement over the weekend, I next week he'll be a candidate for tracheostomy and PEG tube placement. Objective - Vital Signs Vital signs: Vital Signs Temp 98.0 F 11/18/16 04:00 Pulse 67 11/18/16 08:19 Resp 21 11/18/16 07:00 BP 115/63 11/18/16 07:00 Pulse Ox 97 11/18/16 07:00 Intake & Output 11/17/16 11/18/16 11/18/16 18:59 06:59 18:59 Intake Total 1775.109 1550.947 137.330 Output Total 505 655 150 Balance 1090.702 510.947 -12.670 Weight 99.2 kg 96.5 kg Intake: Intake, IV Titration 847.702 430.947 94.330 Amount Amiodarone 450 mg In 248.616 Dextrose 5% in Water 250 ml @ 1 MG/MIN 34.53 mls/ hr IV .Q7H31M [facility] Rx#: [id number] Dextrose 5% in Water 100 150 ml @ 618 mls/hr IV .Q10M ONE with Amiodarone 150 mg Rx#:[id number] Insulin Regular 100 unit 60.517 26.542 42.504 In Sodium Chloride 0.9% 100 ml @ Per Protocol IV .Q0M [facility] Rx#:[id number] Lactated Ringers 1,000 ml 220 240 40 @ 20 mls/hr IV .Q24H [facility] Rx#:[id number] Propofol 500 mg In Empty 168.569 164.405 11.826 Bag 1 bag @ Titrate IV . Q0M [facility] Rx#:[id number] Tube Feeding 658 645 43 Other 90 90 Output: Urine 505 655 150 Other: Voiding Method Indwelling Catheter Indwelling Catheter # Bowel Movements 1 ABP, PAP, CO, CI - Last Documented Arterial Blood Pressure 147/58 Pulmonary Artery Pressure 46/23 Cardiac Output 6.8 Cardiac Index 3.3 - Exam Now no acute distress. The patient remains intubated and sedated. HEENT examination is grossly unremarkable. Mucous members are moist. Endotracheal and NG tube noted. Neck supple. Full range of motion. No adenopathy or thyromegaly. Neck veins are flat. Cardiovascular examination reveals regular rhythm rate. S1-S2 normal. No distinct murmur noted. Lungs reveal diminished breath sounds throughout. A few scattered crackles. A few rhonchi are noted. Abdomen soft bowel sounds are heard. Extremities are intact. There is mild edema. Skin without rash. Neurologic examination cannot be adequately performed. - Labs CBC & Chem 7: 11/18/16 04:00 11/18/16 04:00 Labs: Abnormal Lab Results - Last 24 Hours (Table) 11/17/16 11/17/16 11/17/16 Range/Units 10:04 10:20 11:46 WBC (3.8-10.6) k/uL RBC (4.30-5.90) m/uL Hgb (13.0-17.5) gm/dL Hct (39.0-53.0) % Neutrophils # (1.3-7.7) k/uL ABG pH (7.35-7.45) ABG HCO3 (21-25) mmol/L ABG Total CO2 (19-24) mmol/L ABG O2 Saturation (94-97) % BUN (9-20) mg/dL Glucose (74-99) mg/dL POC Glucose (mg/dL) 157 H 155 H 174 H (75-99) mg/dL Total Protein (6.3-8.2) g/dL Albumin (3.5-5.0) g/dL 11/17/16 11/17/16 11/17/16 Range/Units 12:17 13:05 14:00 WBC (3.8-10.6) k/uL RBC (4.30-5.90) m/uL Hgb (13.0-17.5) gm/dL Hct (39.0-53.0) % Neutrophils # (1.3-7.7) k/uL ABG pH (7.35-7.45) ABG HCO3 (21-25) mmol/L ABG Total CO2 (19-24) mmol/L ABG O2 Saturation (94-97) % BUN (9-20) mg/dL Glucose (74-99) mg/dL POC Glucose (mg/dL) 177 H 178 H 160 H (75-99) mg/dL Total Protein (6.3-8.2) g/dL Albumin (3.5-5.0) g/dL 11/17/16 11/17/16 11/17/16 Range/Units 15:03 16:00 17:10 WBC (3.8-10.6) k/uL RBC (4.30-5.90) m/uL Hgb (13.0-17.5) gm/dL Hct (39.0-53.0) % Neutrophils # (1.3-7.7) k/uL ABG pH (7.35-7.45) ABG HCO3 (21-25) mmol/L ABG Total CO2 (19-24) mmol/L ABG O2 Saturation (94-97) % BUN (9-20) mg/dL Glucose (74-99) mg/dL POC Glucose (mg/dL) 145 H 141 H 151 H (75-99) mg/dL Total Protein (6.3-8.2) g/dL Albumin (3.5-5.0) g/dL 11/17/16 11/17/16 11/17/16 Range/Units 18:15 19:04 20:05 WBC (3.8-10.6) k/uL RBC (4.30-5.90) m/uL Hgb (13.0-17.5) gm/dL Hct (39.0-53.0) % Neutrophils # (1.3-7.7) k/uL ABG pH (7.35-7.45) ABG HCO3 (21-25) mmol/L ABG Total CO2 (19-24) mmol/L ABG O2 Saturation (94-97) % BUN (9-20) mg/dL Glucose (74-99) mg/dL POC Glucose (mg/dL) 182 H 145 H 127 H (75-99) mg/dL Total Protein (6.3-8.2) g/dL Albumin (3.5-5.0) g/dL 11/17/16 11/17/1611/17/17 Range/Units 21:13 21:58 23:53 WBC (3.8-10.6) k/uL RBC (4.30-5.90) m/uL Hgb (13.0-17.5) gm/dL Hct (39.0-53.0) % Neutrophils # (1.3-7.7) k/uL ABG pH (7.35-7.45) ABG HCO3 (21-25) mmol/L ABG Total CO2 (19-24) mmol/L ABG O2 Saturation (94-97) % BUN (9-20) mg/dL Glucose (74-99) mg/dL POC Glucose (mg/dL) 130 H 119 H 142 H (75-99) mg/dL Total Protein (6.3-8.2) g/dL Albumin (3.5-5.0) g/dL 11/18/16 11/18/16 11/18/16 Range/Units 02:28 03:58 04:00 WBC (3.8-10.6) k/uL RBC (4.30-5.90) m/uL Hgb (13.0-17.5) gm/dL Hct (39.0-53.0) % Neutrophils # (1.3-7.7) k/uL ABG pH (7.35-7.45) ABG HCO3 (21-25) mmol/L ABG Total CO2 (19-24) mmol/L ABG O2 Saturation (94-97) % BUN 52 H (9-20) mg/dL Glucose 132 H (74-99) mg/dL POC Glucose (mg/dL) 140 H 137 H (75-99) mg/dL Total Protein 5.3 L (6.3-8.2) g/dL Albumin 2.6 L (3.5-5.0) g/dL 11/18/16 11/18/16 11/18/16 Range/Units 04:00 04:19 07:11 WBC 14.1 H (3.8-10.6) k/uL RBC 2.96 L (4.30-5.90) m/uL Hgb 9.6 L (13.0-17.5) gm/dL Hct 29.2 L (39.0-53.0) % Neutrophils # 11.8 H (1.3-7.7) k/uL ABG pH 7.46 H (7.35-7.45) ABG HCO3 26 H (21-25) mmol/L ABG Total CO2 27 H (19-24) mmol/L ABG O2 Saturation 98.0 H (94-97) % BUN (9-20) mg/dL Glucose (74-99) mg/dL POC Glucose (mg/dL) 119 H (75-99) mg/dL Total Protein (6.3-8.2) g/dL Albumin (3.5-5.0) g/dL 11/18/16 Range/Units 08:17 WBC (3.8-10.6) k/uL RBC (4.30-5.90) m/uL Hgb (13.0-17.5) gm/dL Hct (39.0-53.0) % Neutrophils # (1.3-7.7) k/uL ABG pH (7.35-7.45) ABG HCO3 (21-25) mmol/L ABG Total CO2 (19-24) mmol/L ABG O2 Saturation (94-97) % BUN (9-20) mg/dL Glucose (74-99) mg/dL POC Glucose (mg/dL) 132 H (75-99) mg/dL Total Protein (6.3-8.2) g/dL Albumin (3.5-5.0) g/dL Assessment and Plan (1) Postoperative respiratory failure Status: Acute (2) Status post coronary artery bypass graft Status: Acute (3) Coronary artery disease Status: Acute (4) History of PTCA Status: Acute (5) Hyperlipidemia Status: Acute (6) Hypertension Status: Acute (7) Nicotine dependence, chewing tobacco, uncomplicated Status: Acute Plan: Plan dated 11/15/2016 The patient's vent will be changed a bit. We'll bump his rate up from 16-20. We'll decrease the tidal volume from 500 to 450. We'll increase the PEEP of 5- 10. I've asked respiratory to try to titrate down the FiO2. Hopefully this will happen once we increase the PEEP from 5-10. We'll continue to follow closely. X-rays labs medications are all reviewed. Prognosis is guarded. Plan dated 11/16/2016 The patient's vent will be changed a bit as we increase the PEEP to 13. I asked the respiratory therapist guarded titrate down the FiO2. Labs x-rays and medications are all reviewed. Additional recommendations suggestions are forthcoming. Prognosis is guarded. Plan dated 11/18/2016 The patient is doing about the same. Oxygen requirements have actually gone up. Chest x-ray still showing a pattern of fluid overload. Currently the patient is on all the appropriate medications. We will attempt a daily eruption of sedation. Labs x-rays a medications are all reviewed. Again prognosis is very guarded. Time with Patient: Greater than 30
[2016-11-18] MEDS ORDERED: AMIODARONE 200 MG TAB PO SCH (09:00)
[2016-11-18] MEDS ORDERED: LISINOPRIL 5 MG TAB PO STA (09:20)
--- NOTE | 2016-11-18 09:21 | P.PN ---
Subjective Principal diagnosis: Coronary artery disease, status post prior stenting to his right coronary artery. Preserved left ventricular function. Hyperlipidemia. Hypertension. ETOH abuse. POD #8 total arterial non-aortic patch off-pump double coronary artery bypass grafting using in situ skeletonized right internal mammary artery to the left anterior descending artery across the anterior midline in situ totally skeletonized left internal mammary artery to the first obtuse marginal artery. Intraoperative transesophageal echocardiogram and epi-aortic scanning. Intraoperative graft flow measurements using the [employer] system Patient had postoperative mucous plugging with increasing oxygen demand requiring bronchoscopy the night of surgery. Bronchial washings negative for bacteria/viruses to date. Pt developed postoperative alcohol withdrawal requiring increased sedation and continued mechanical ventilation. Patient remains sedated on mechanical ventilation. ABGs reviewed from this morning on 80% FiO2 with a PEEP of 13. Patient continues to be intolerant of any attempt to wean down FiO2. Patient started yesterday back into normal sinus rhythm. Off amiodarone drip, transition to oral amiodarone with digoxin IV push daily. Objective - Vital Signs Vital signs: Vital Signs Temp 98.0 F 11/18/16 04:00 Pulse 67 11/18/16 08:19 Resp 21 11/18/16 07:00 BP 115/63 11/18/16 07:00 Pulse Ox 97 11/18/16 07:00 Intake & Output 11/17/16 11/18/16 11/18/16 18:59 06:59 18:59 Intake Total 4235.935 4678.947 137.330 Output Total 505 655 150 Balance 1090.702 510.947 -12.670 Weight 99.2 kg 96.5 kg Intake: Intake, IV Titration 847.702 430.947 94.330 Amount Amiodarone 450 mg In 248.616 Dextrose 5% in Water 250 ml @ 1 MG/MIN 34.53 mls/ hr IV .Q7H31M [facility] Rx#: [id number] Dextrose 5% in Water 100 150 ml @ 618 mls/hr IV .Q10M ONE with Amiodarone 150 mg Rx#:[id number] Insulin Regular 100 unit 60.517 26.542 42.504 In Sodium Chloride 0.9% 100 ml @ Per Protocol IV .Q0M [facility] Rx#:[id number] Lactated Ringers 1,000 ml 220 240 40 @ 20 mls/hr IV .Q24H [facility] Rx#:[id number] Propofol 500 mg In Empty 168.569 164.405 11.826 Bag 1 bag @ Titrate IV . Q0M [facility] Rx#:[id number] Tube Feeding 658 645 43 Other 90 90 Output: Urine 505 655 150 Other: Voiding Method Indwelling Catheter Indwelling Catheter # Bowel Movements 1 ABP, PAP, CO, CI - Last Documented Arterial Blood Pressure 147/58 Pulmonary Artery Pressure 46/23 Cardiac Output 6.8 Cardiac Index 3.3 - Constitutional General appearance: Present: no acute distress - Respiratory Details: Lungs sounds diminished bilaterally. Respirations even, nonlabored on mechanical ventilation. Current settings tidal volume 450, FiO2 80%, respiratory rate 20, PEEP 13. - Cardiovascular Details: S1, S2 present. Bradycardic rate and rhythm, sinus bradycardia on telemetry. Sternum stable. Heart hugger/teds for/SCDs present. Left arm PICC line present. - Gastrointestinal Gastrointestinal Comment(s): Abdomen soft, nontender, nondistended. Active bowel sounds 4 quadrants. Tube feeding infusing and 43 mL/h through OG tube. - Genitourinary Genitourinary Comment(s): Tay present draining clear, yellow urine. Urine output 50 mL/h overnight. - Integumentary Integumentary Comment(s): Anterior chest incision covered with dry intact silver dressing. - Psychiatric Psychiatric Comment(s): Remains sedated on mechanical ventilation. - Allied health notes Allied health notes reviewed: nursing - Labs CBC & Chem 7: 11/18/16 04:00 11/18/16 04:00 Labs: Abnormal Lab Results - Last 24 Hours (Table) 11/17/16 11/17/16 11/17/16 Range/Units 10:04 10:20 11:46 WBC (3.8-10.6) k/uL RBC (4.30-5.90) m/uL Hgb (13.0-17.5) gm/dL Hct (39.0-53.0) % Neutrophils # (1.3-7.7) k/uL ABG pH (7.35-7.45) ABG HCO3 (21-25) mmol/L ABG Total CO2 (19-24) mmol/L ABG O2 Saturation (94-97) % BUN (9-20) mg/dL Glucose (74-99) mg/dL POC Glucose (mg/dL) 157 H 155 H 174 H (75-99) mg/dL Total Protein (6.3-8.2) g/dL Albumin (3.5-5.0) g/dL 11/17/16 11/17/16 11/17/16 Range/Units 12:17 13:05 14:00 WBC (3.8-10.6) k/uL RBC (4.30-5.90) m/uL Hgb (13.0-17.5) gm/dL Hct (39.0-53.0) % Neutrophils # (1.3-7.7) k/uL ABG pH (7.35-7.45) ABG HCO3 (21-25) mmol/L ABG Total CO2 (19-24) mmol/L ABG O2 Saturation (94-97) % BUN (9-20) mg/dL Glucose (74-99) mg/dL POC Glucose (mg/dL) 177 H 178 H 160 H (75-99) mg/dL Total Protein (6.3-8.2) g/dL Albumin (3.5-5.0) g/dL 11/17/16 11/17/16 11/17/16 Range/Units 15:03 16:00 17:10 WBC (3.8-10.6) k/uL RBC (4.30-5.90) m/uL Hgb (13.0-17.5) gm/dL Hct (39.0-53.0) % Neutrophils # (1.3-7.7) k/uL ABG pH (7.35-7.45) ABG HCO3 (21-25) mmol/L ABG Total CO2 (19-24) mmol/L ABG O2 Saturation (94-97) % BUN (9-20) mg/dL Glucose (74-99) mg/dL POC Glucose (mg/dL) 145 H 141 H 151 H (75-99) mg/dL Total Protein (6.3-8.2) g/dL Albumin (3.5-5.0) g/dL 11/17/16 11/17/16 11/17/16 Range/Units 18:15 19:04 20:05 WBC (3.8-10.6) k/uL RBC (4.30-5.90) m/uL Hgb (13.0-17.5) gm/dL Hct (39.0-53.0) % Neutrophils # (1.3-7.7) k/uL ABG pH (7.35-7.45) ABG HCO3 (21-25) mmol/L ABG Total CO2 (19-24) mmol/L ABG O2 Saturation (94-97) % BUN (9-20) mg/dL Glucose (74-99) mg/dL POC Glucose (mg/dL) 182 H 145 H 127 H (75-99) mg/dL Total Protein (6.3-8.2) g/dL Albumin (3.5-5.0) g/dL 11/17/16 11/17/16 11/17/16 Range/Units 21:13 21:58 23:53 WBC (3.8-10.6) k/uL RBC (4.30-5.90) m/uL Hgb (13.0-17.5) gm/dL Hct (39.0-53.0) % Neutrophils # (1.3-7.7) k/uL ABG pH (7.35-7.45) ABG HCO3 (21-25) mmol/L ABG Total CO2 (19-24) mmol/L ABG O2 Saturation (94-97) % BUN (9-20) mg/dL Glucose (74-99) mg/dL POC Glucose (mg/dL) 130 H 119 H 142 H (75-99) mg/dL Total Protein (6.3-8.2) g/dL Albumin (3.5-5.0) g/dL 11/18/16 11/18/16 11/18/16 Range/Units 02:28 03:58 04:00 WBC (3.8-10.6) k/uL RBC (4.30-5.90) m/uL Hgb (13.0-17.5) gm/dL Hct (39.0-53.0) % Neutrophils # (1.3-7.7) k/uL ABG pH (7.35-7.45) ABG HCO3 (21-25) mmol/L ABG Total CO2 (19-24) mmol/L ABG O2 Saturation (94-97) % BUN 52 H (9-20) mg/dL Glucose 132 H (74-99) mg/dL POC Glucose (mg/dL) 140 H 137 H (75-99) mg/dL Total Protein 5.3 L (6.3-8.2) g/dL Albumin 2.6 L (3.5-5.0) g/dL 11/18/16 11/18/16 11/18/16 Range/Units 04:00 04:19 07:11 WBC 14.1 H (3.8-10.6) k/uL RBC 2.96 L (4.30-5.90) m/uL Hgb 9.6 L (13.0-17.5) gm/dL Hct 29.2 L (39.0-53.0) % Neutrophils # 11.8 H (1.3-7.7) k/uL ABG pH 7.46 H (7.35-7.45) ABG HCO3 26 H (21-25) mmol/L ABG Total CO2 27 H (19-24) mmol/L ABG O2 Saturation 98.0 H (94-97) % BUN (9-20) mg/dL Glucose (74-99) mg/dL POC Glucose (mg/dL) 119 H (75-99) mg/dL Total Protein (6.3-8.2) g/dL Albumin (3.5-5.0) g/dL 11/18/16 Range/Units 08:17 WBC (3.8-10.6) k/uL RBC (4.30-5.90) m/uL Hgb (13.0-17.5) gm/dL Hct (39.0-53.0) % Neutrophils # (1.3-7.7) k/uL ABG pH (7.35-7.45) ABG HCO3 (21-25) mmol/L ABG Total CO2 (19-24) mmol/L ABG O2 Saturation (94-97) % BUN (9-20) mg/dL Glucose (74-99) mg/dL POC Glucose (mg/dL) 132 H (75-99) mg/dL Total Protein (6.3-8.2) g/dL Albumin (3.5-5.0) g/dL - Imaging and Cardiology Chest x-ray: image reviewed Assessment and Plan (1) Status post coronary artery bypass graft Status: Acute (2) Coronary artery disease Status: Acute (3) Family history of heart disease Status: Acute (4) History of PTCA Status: Acute (5) Hyperlipidemia Status: Acute (6) Hypertension Status: Acute (7) Nicotine dependence, chewing tobacco, uncomplicated Status: Acute Plan: 1. Continue aspirin, Lipitor, Plavix, heparin, Lopressor, lisinopril, digoxin. 2. Continue amiodarone for atrial fibrillation prophylaxis. 3. Ventilator management per pulmonology, wean O2 as tolerated. Wean Solu- Medrol per pulmonology. 4. If/when able to wean from ventilator, may want to consider switching propofol to Precedex for sedation. 5. Insulin/diabetic management per primary care service. 6. Continue CIWA protocol for alcohol withdrawal. 7. Daily labs, chest x-rays. 8. GI/DVT prophylaxis. 9. More recommendations as patient progresses. Time with Patient: Greater than 30
--- NOTE | 2016-11-18 09:59 | CDI ---
In responding to this query, please exercise your independent professional judgment. The [facility] Coding Staff and Clinical Documentation Specialists appreciate your assistance in clarifying documentation, maintaining compliance with coding guidelines, accurately documenting patients condition and capturing severity of illness. The fact that a question is asked does not imply that any particular answer is desired or expected. Communication forms are a method of clarifying documentation and are not made part of the Legal Health Record. Thank you in advance for your clarification. Last Revision, September 2015 Harris Clemens [address] [place] [address] Documentation Clarification Form Date: 11/18/2016 9:36:00 AM From: Pau Hubbard RN, CCDS Admit Date: 11/10/2016 5:40:00 AM Patient Name: Emmanuel Gonzalez Visit Number: [id number] Dr. Ollie Ortega/Nasra Whaley CNP Postoperative Respiratory failure is documented in the Pulmonary and Medical Progress Notes. Patients Admitting Diagnosis: CAD in for Elective CABG Post-Operative Diagnosis: 1. Coronary artery disease, status post prior stenting to his right coronary artery. 2. Preserved Left ventricular function. 3. Hyperlipidemia. 4. Hypertension. 5. ETOH abuse. Procedure performed: Total arterial non- aortic touch off-pump double coronary artery bypass grafting using in situ skeletonized right internal mammary artery to the left anterior descending artery across the anterior midline, in situ totally skeletonized left internal mammary artery to the first obtuse marginal artery. 2. Transesophageal echocardiogram and epiaortic scanning. 3. Intraoperative graft flow measurements using the medistim system. History/Risk Factors: ETOH, current smoker, possible COPD, CABG with post operative mucus plugging and bronchoscopy Clinical Indicators: 11/18 Pulmonary Progress Note: "Patient is at current P-op Day #8. Still requiring high concentrations of oxygen and high PEEP levels. Likely has developed acute lung injury/ARDS. The patient's vent settings with the assist control mode rate of 20 tidal volume 450 FiO2 80% PEEP of 13. Blood gases show a PaO2 of 92 a pCO2 of 38 patients some 0.46. In my opinion, all that's patient starts to show some significant improvement and, he likely end up with a tracheostomy and a feeding tube. His overall prognosis remains very poor as he is not really making much progress. Yesterday we did him down to 60% and 13 a PEEP and I thought that point I had broken shot and improved his respiratory status but today I see is back up to 80%. Again I think if he doesn't show much improvement over the weekend, I next week he'll be a candidate for tracheostomy and PEG tube placement. Postoperative respiratory failure." Treatment: (see above Pulmonary Progress note) Consults: Pulmonary, Cardiology Ventilation is maintained beyond 48hrs after surgery In order to accurately reflect this patients severity of illness, please clarify if the post-operative diagnosis is: An expected post-procedural or post-surgical condition Integral to the procedure Inherent to the procedure An unexpected post-procedural or post-surgical condition, related to the patients underlying medical comorbidities Other, please specify Unable to determine Please document in your progress notes and discharge summary in order to capture severity of illness and risk of mortality. Include clinical findings that support your diagnosis. FYI: Press F11 to launch patient chart Place X here if this finding has no clinical significance, is not applicable or if you are not able to provide any additional documentation. TAISHA
[2016-11-18] MEDS ORDERED: PROPOFOL 150 ML IV ONE (10:04)
[2016-11-18 10:13] LABS: Glucose,Whole Blood 124 mg/dL (75-99)
[2016-11-18] MEDS: THIAMINE 100 MG TAB PO SCH ×2 (10:15→20:03)
[2016-11-18] MEDS: HEPARIN SODIUM,PORCINE 5,000 UNIT/ML 1 ML VIAL SQ SCH ×2 (10:15→16:21)
[2016-11-18] MEDS: PANTOPRAZOLE 40 MG/10 ML VIAL IVP SCH (10:15)
[2016-11-18] MEDS: INSULIN REGULAR 100 UNIT in SODIUM CHLORIDE 0.9% 100 ML IV SCH (10:16)
[2016-11-18] MEDS: ASPIRIN 325 MG TAB PO SCH (10:17)
[2016-11-18] MEDS: CHLORHEXIDINE GLUCONATE 15 ML CUP MUCOUS MEM SCH ×2 (10:17→20:05)
[2016-11-18] MEDS: methylPREDNISolone SOD SUCCI 40 MG/ML 1 ML VIAL IV SCH ×2 (10:17→20:05)
[2016-11-18] MEDS: METOPROLOL TARTRATE 25 MG TAB PO SCH ×2 (10:35→20:03)
[2016-11-18] MEDS: ATORVASTATIN 40 MG TAB PO SCH (10:36)
[2016-11-18] MEDS: CLOPIDOGREL 75 MG TAB PO SCH (10:37)
[2016-11-18 12:11] LABS: Glucose,Whole Blood 109 mg/dL (75-99)
[2016-11-18 12:28] LABS: Glucose,Whole Blood 124 mg/dL (75-99)
[2016-11-18] MEDS: MULTIVITAMINS, THERA LIQUID 237 ML BOTTLE PO SCH (12:34)
[2016-11-18 13:38] LABS: Glucose,Whole Blood 134 mg/dL (75-99)
--- NOTE | 2016-11-18 15:24 | P.PN ---
Subjective Principal diagnosis: Status post CABG, respiratory failure, atrial fibrillation This 60-year-old gentleman is status post prior to coronary bypass surgery. Patient has been having difficulty oxygenating and has been ventilator dependent. Patient also had history of alcohol withdrawal. Adjustments are being made in the respiratory settings and cutting down on PEEP. Hemodynamically patient is otherwise stable. Kidney function remained stable. Patient went into atrial fibrillation last night. He was started on IV amiodarone bolus and drip. Additional amiodarone was given this morning. His heart rate in the 60-90 range. Patient also had a PICC line placement. Patient is reevaluated on 18 of November. Patient is still intubated and sedated. Having difficulty with oxygenation. Patient may need a tracheostomy. His heart rate is well controlled. His kidney function remained stable. We' ll continue current medical therapy. Objective - Vital Signs Vital signs: Vital Signs Temp 99 F 11/18/16 11:00 Pulse 79 11/18/16 15:00 Resp 24 11/18/16 15:00 BP 120/64 11/18/16 15:00 Pulse Ox 94 L 11/18/16 15:00 Intake & Output 11/17/16 11/18/16 11/18/16 18:59 06:59 18:59 Intake Total 5530.277 7772.947 857.099 Output Total 505 655 885 Balance 1090.702 510.947 -27.901 Weight 99.2 kg 96.5 kg 96.5 kg Intake: Intake, IV Titration 847.702 430.947 281.099 Amount Amiodarone 450 mg In 248.616 Dextrose 5% in Water 250 ml @ 1 MG/MIN 34.53 mls/ hr IV .Q7H31M [facility] Rx#: [id number] Dextrose 5% in Water 100 150 ml @ 618 mls/hr IV .Q10M ONE with Amiodarone 150 mg Rx#:[id number] Insulin Regular 100 unit 60.517 26.542 52.335 In Sodium Chloride 0.9% 100 ml @ Per Protocol IV .Q0M [facility] Rx#:[id number] Lactated Ringers 1,000 ml 220 240 180 @ 20 mls/hr IV .Q24H [facility] Rx#:[id number] Propofol 500 mg In Empty 168.569 164.405 48.764 Bag 1 bag @ Titrate IV . Q0M [facility] Rx#:[id number] Tube Feeding 658 645 516 Other 90 90 60 Output: Urine 505 655 885 Other: Voiding Method Indwelling Catheter Indwelling Catheter Indwelling Catheter # Bowel Movements 1 ABP, PAP, CO, CI - Last Documented Arterial Blood Pressure 152/64 Pulmonary Artery Pressure 46/23 Cardiac Output 6.8 Cardiac Index 3.3 - Labs CBC & Chem 7: 11/18/16 04:00 11/18/16 04:00 Labs: Abnormal Lab Results - Last 24 Hours (Table) 11/17/16 11/17/16 11/17/16 Range/Units 16:00 17:10 18:15 WBC (3.8-10.6) k/uL RBC (4.30-5.90) m/uL Hgb (13.0-17.5) gm/dL Hct (39.0-53.0) % Neutrophils # (1.3-7.7) k/uL ABG pH (7.35-7.45) ABG HCO3 (21-25) mmol/L ABG Total CO2 (19-24) mmol/L ABG O2 Saturation (94-97) % BUN (9-20) mg/dL Glucose (74-99) mg/dL POC Glucose (mg/dL) 141 H 151 H 182 H (75-99) mg/dL Magnesium (1.6-2.3) mg/dL Total Protein (6.3-8.2) g/dL Albumin (3.5-5.0) g/dL 11/17/16 11/17/16 11/17/16 Range/Units 19:04 20:05 21:13 WBC (3.8-10.6) k/uL RBC (4.30-5.90) m/uL Hgb (13.0-17.5) gm/dL Hct (39.0-53.0) % Neutrophils # (1.3-7.7) k/uL ABG pH (7.35-7.45) ABG HCO3 (21-25) mmol/L ABG Total CO2 (19-24) mmol/L ABG O2 Saturation (94-97) % BUN (9-20) mg/dL Glucose (74-99) mg/dL POC Glucose (mg/dL) 145 H 127 H 130 H (75-99) mg/dL Magnesium (1.6-2.3) mg/dL Total Protein (6.3-8.2) g/dL Albumin (3.5-5.0) g/dL 11/17/16 11/17/16 11/18/16 Range/Units 21:58 23:53 02:28 WBC (3.8-10.6) k/uL RBC (4.30-5.90) m/uL Hgb (13.0-17.5) gm/dL Hct (39.0-53.0) % Neutrophils # (1.3-7.7) k/uL ABG pH (7.35-7.45) ABG HCO3 (21-25) mmol/L ABG Total CO2 (19-24) mmol/L ABG O2 Saturation (94-97) % BUN (9-20) mg/dL Glucose (74-99) mg/dL POC Glucose (mg/dL) 119 H 142 H 140 H (75-99) mg/dL Magnesium (1.6-2.3) mg/dL Total Protein (6.3-8.2) g/dL Albumin (3.5-5.0) g/dL 11/18/16 11/18/16 11/18/16 Range/Units 03:58 04:00 04:00 WBC 14.1 H (3.8-10.6) k/uL RBC 2.96 L (4.30-5.90) m/uL Hgb 9.6 L (13.0-17.5) gm/dL Hct 29.2 L (39.0-53.0) % Neutrophils # 11.8 H (1.3-7.7) k/uL ABG pH (7.35-7.45) ABG HCO3 (21-25) mmol/L ABG Total CO2 (19-24) mmol/L ABG O2 Saturation (94-97) % BUN 52 H (9-20) mg/dL Glucose 132 H (74-99) mg/dL POC Glucose (mg/dL) 137 H (75-99) mg/dL Magnesium (1.6-2.3) mg/dL Total Protein 5.3 L (6.3-8.2) g/dL Albumin 2.6 L (3.5-5.0) g/dL 11/18/16 11/18/16 11/18/16 Range/Units 04:00 04:19 07:11 WBC (3.8-10.6) k/uL RBC (4.30-5.90) m/uL Hgb (13.0-17.5) gm/dL Hct (39.0-53.0) % Neutrophils # (1.3-7.7) k/uL ABG pH 7.46 H (7.35-7.45) ABG HCO3 26 H (21-25) mmol/L ABG Total CO2 27 H (19-24) mmol/L ABG O2 Saturation 98.0 H (94-97) % BUN (9-20) mg/dL Glucose (74-99) mg/dL POC Glucose (mg/dL) 119 H (75-99) mg/dL Magnesium 2.8 H (1.6-2.3) mg/dL Total Protein (6.3-8.2) g/dL Albumin (3.5-5.0) g/dL 11/18/16 11/18/16 11/18/16 Range/Units 08:17 10:09 12:09 WBC (3.8-10.6) k/uL RBC (4.30-5.90) m/uL Hgb (13.0-17.5) gm/dL Hct (39.0-53.0) % Neutrophils # (1.3-7.7) k/uL ABG pH (7.35-7.45) ABG HCO3 (21-25) mmol/L ABG Total CO2 (19-24) mmol/L ABG O2 Saturation (94-97) % BUN (9-20) mg/dL Glucose (74-99) mg/dL POC Glucose (mg/dL) 132 H 124 H 109 H (75-99) mg/dL Magnesium (1.6-2.3) mg/dL Total Protein (6.3-8.2) g/dL Albumin (3.5-5.0) g/dL 11/18/16 11/18/16 Range/Units 12:25 13:34 WBC (3.8-10.6) k/uL RBC (4.30-5.90) m/uL Hgb (13.0-17.5) gm/dL Hct (39.0-53.0) % Neutrophils # (1.3-7.7) k/uL ABG pH (7.35-7.45) ABG HCO3 (21-25) mmol/L ABG Total CO2 (19-24) mmol/L ABG O2 Saturation (94-97) % BUN (9-20) mg/dL Glucose (74-99) mg/dL POC Glucose (mg/dL) 124 H 134 H (75-99) mg/dL Magnesium (1.6-2.3) mg/dL Total Protein (6.3-8.2) g/dL Albumin (3.5-5.0) g/dL Assessment and Plan (1) Status post coronary artery bypass graft Status: Acute (2) Family history of heart disease Status: Acute (3) Hyperlipidemia Status: Acute (4) Hypertension Status: Acute (5) Nicotine dependence, chewing tobacco, uncomplicated Status: Acute (6) Atrial fibrillation Status: Acute Plan: No significant improvement in clinical status. Patient's heart rate is well controlled. Patient is on an amiodarone. He is not on anticoagulation at this time. If patient were to go into atrial fibrillation again, anticoagulation therapy to be started. Prognosis is guarded
--- NOTE | 2016-11-18 15:46 | P.PN ---
Subjective Date of service 11/18/2016. Progress note being dictated for Dr. Jordan. Interval history: This is a 61-year-old gentleman status post CABG, status post bronchoscopy related to significant mucus plugging, failure to wean, DTs and multiple other medical issues. ABGs noted, FiO2 increased to 80%, +13 peep. Chest x-ray reporting mild pulmonary vascular congestion, small to moderate left pleural effusion with adjacent atelectasis/consolidation increased. Maintained on oral amiodarone, diprovan, CIWA protocol and insulin drips. Objective - Vital Signs Vital signs: Vital Signs Temp 99 F 11/18/16 11:00 Pulse 79 11/18/16 15:00 Resp 24 11/18/16 15:00 BP 120/64 11/18/16 15:00 Pulse Ox 94 L 11/18/16 15:00 Intake & Output 11/17/16 11/18/16 11/18/16 18:59 06:59 18:59 Intake Total 7512.182 6578.947 857.099 Output Total 505 655 885 Balance 1090.702 510.947 -27.901 Weight 99.2 kg 96.5 kg 96.5 kg Intake: Intake, IV Titration 847.702 430.947 281.099 Amount Amiodarone 450 mg In 248.616 Dextrose 5% in Water 250 ml @ 1 MG/MIN 34.53 mls/ hr IV .Q7H31M [facility] Rx#: [id number] Dextrose 5% in Water 100 150 ml @ 618 mls/hr IV .Q10M ONE with Amiodarone 150 mg Rx#:[id number] Insulin Regular 100 unit 60.517 26.542 52.335 In Sodium Chloride 0.9% 100 ml @ Per Protocol IV .Q0M [facility] Rx#:[id number] Lactated Ringers 1,000 ml 220 240 180 @ 20 mls/hr IV .Q24H [facility] Rx#:[id number] Propofol 500 mg In Empty 168.569 164.405 48.764 Bag 1 bag @ Titrate IV . Q0M [facility] Rx#:[id number] Tube Feeding 658 645 516 Other 90 90 60 Output: Urine 505 655 885 Other: Voiding Method Indwelling Catheter Indwelling Catheter Indwelling Catheter # Bowel Movements 1 ABP, PAP, CO, CI - Last Documented Arterial Blood Pressure 152/64 Pulmonary Artery Pressure 46/23 Cardiac Output 6.8 Cardiac Index 3.3 - Exam PHYSICAL EXAM: VITAL SIGNS: As above GENERAL: [Sedated, intubated HEENT: [Pupils equal, conjunctiva normal. Mucosa moist. Endotracheal tube present. ] NECK: [Supple, no JVD] RESPIRATORY EFFORT:[Normal] LUNGS: [Diminished throughout, bibasilar crackles greater on the left, rhonchi] CARDIOVASCULAR[regular S1 and S2, no murmurs rubs or gallops, mild edema] GI: [Abdomen soft, nontender, positive bowel sounds.] NEURO: Unable to assess, patient sedated on Diprovan and vent dependent Microbiology 11/10/16 16:40 Lung Aspirate - Right Gram Stain - Final 11/10/16 16:40 Lung Aspirate - Right Bronchial Washings Culture - Final 11/10/16 16:40 Lung - Right Acid Fast Bacilli Smear - Final 11/10/16 16:40 Lung - Right Acid Fast Bacilli Culture - Preliminary 11/10/16 16:40 Lung - Right Fungal Culture - Preliminary - Labs CBC & Chem 7: 11/18/16 04:00 11/18/16 04:00 Labs: Abnormal Lab Results - Last 24 Hours (Table) 11/17/16 11/17/16 11/17/16 Range/Units 16:00 17:10 18:15 WBC (3.8-10.6) k/uL RBC (4.30-5.90) m/uL Hgb (13.0-17.5) gm/dL Hct (39.0-53.0) % Neutrophils # (1.3-7.7) k/uL ABG pH (7.35-7.45) ABG HCO3 (21-25) mmol/L ABG Total CO2 (19-24) mmol/L ABG O2 Saturation (94-97) % BUN (9-20) mg/dL Glucose (74-99) mg/dL POC Glucose (mg/dL) 141 H 151 H 182 H (75-99) mg/dL Magnesium (1.6-2.3) mg/dL Total Protein (6.3-8.2) g/dL Albumin (3.5-5.0) g/dL 11/17/16 11/17/1617 Range/Units 19:04 20:05 21:13 WBC (3.8-10.6) k/uL RBC (4.30-5.90) m/uL Hgb (13.0-17.5) gm/dL Hct (39.0-53.0) % Neutrophils # (1.3-7.7) k/uL ABG pH (7.35-7.45) ABG HCO3 (21-25) mmol/L ABG Total CO2 (19-24) mmol/L ABG O2 Saturation (94-97) % BUN (9-20) mg/dL Glucose (74-99) mg/dL POC Glucose (mg/dL) 145 H 127 H 130 H (75-99) mg/dL Magnesium (1.6-2.3) mg/dL Total Protein (6.3-8.2) g/dL Albumin (3.5-5.0) g/dL 11/17/16 11/17/16 11/18/16 Range/Units 21:58 23:53 02:28 WBC (3.8-10.6) k/uL RBC (4.30-5.90) m/uL Hgb (13.0-17.5) gm/dL Hct (39.0-53.0) % Neutrophils # (1.3-7.7) k/uL ABG pH (7.35-7.45) ABG HCO3 (21-25) mmol/L ABG Total CO2 (19-24) mmol/L ABG O2 Saturation (94-97) % BUN (9-20) mg/dL Glucose (74-99) mg/dL POC Glucose (mg/dL) 119 H 142 H 140 H (75-99) mg/dL Magnesium (1.6-2.3) mg/dL Total Protein (6.3-8.2) g/dL Albumin (3.5-5.0) g/dL 11/18/16 11/18/16 11/18/16 Range/Units 03:58 04:00 04:00 WBC 14.1 H (3.8-10.6) k/uL RBC 2.96 L (4.30-5.90) m/uL Hgb 9.6 L (13.0-17.5) gm/dL Hct 29.2 L (39.0-53.0) % Neutrophils # 11.8 H (1.3-7.7) k/uL ABG pH (7.35-7.45) ABG HCO3 (21-25) mmol/L ABG Total CO2 (19-24) mmol/L ABG O2 Saturation (94-97) % BUN 52 H (9-20) mg/dL Glucose 132 H (74-99) mg/dL POC Glucose (mg/dL) 137 H (75-99) mg/dL Magnesium (1.6-2.3) mg/dL Total Protein 5.3 L (6.3-8.2) g/dL Albumin 2.6 L (3.5-5.0) g/dL 11/18/16 11/18/16 11/18/16 Range/Units 04:00 04:19 07:11 WBC (3.8-10.6) k/uL RBC (4.30-5.90) m/uL Hgb (13.0-17.5) gm/dL Hct (39.0-53.0) % Neutrophils # (1.3-7.7) k/uL ABG pH 7.46 H (7.35-7.45) ABG HCO3 26 H (21-25) mmol/L ABG Total CO2 27 H (19-24) mmol/L ABG O2 Saturation 98.0 H (94-97) % BUN (9-20) mg/dL Glucose (74-99) mg/dL POC Glucose (mg/dL) 119 H (75-99) mg/dL Magnesium 2.8 H (1.6-2.3) mg/dL Total Protein (6.3-8.2) g/dL Albumin (3.5-5.0) g/dL 11/18/16 11/18/16 11/18/16 Range/Units 08:17 10:09 12:09 WBC (3.8-10.6) k/uL RBC (4.30-5.90) m/uL Hgb (13.0-17.5) gm/dL Hct (39.0-53.0) % Neutrophils # (1.3-7.7) k/uL ABG pH (7.35-7.45) ABG HCO3 (21-25) mmol/L ABG Total CO2 (19-24) mmol/L ABG O2 Saturation (94-97) % BUN (9-20) mg/dL Glucose (74-99) mg/dL POC Glucose (mg/dL) 132 H 124 H 109 H (75-99) mg/dL Magnesium (1.6-2.3) mg/dL Total Protein (6.3-8.2) g/dL Albumin (3.5-5.0) g/dL 11/18/16 11/18/16 Range/Units 12:25 13:34 WBC (3.8-10.6) k/uL RBC (4.30-5.90) m/uL Hgb (13.0-17.5) gm/dL Hct (39.0-53.0) % Neutrophils # (1.3-7.7) k/uL ABG pH (7.35-7.45) ABG HCO3 (21-25) mmol/L ABG Total CO2 (19-24) mmol/L ABG O2 Saturation (94-97) % BUN (9-20) mg/dL Glucose (74-99) mg/dL POC Glucose (mg/dL) 124 H 134 H (75-99) mg/dL Magnesium (1.6-2.3) mg/dL Total Protein (6.3-8.2) g/dL Albumin (3.5-5.0) g/dL Assessment and Plan Plan: 1. CAD, [Status post CABG]. 2. [Acute hypoxic respiratory failure secondary to the above]. 3. [Exacerbation COPD]. 4. [Possible early DTs, on CIWA protocol]. 5. Right upper and lower lobe collapse secondary to mucus plugging status post bronchoscopy]. 6. [Hypertension]. 7. [Ongoing Nicotine dependence, chewing tobacco 8. Bibasilar atelectasis 9. Left pleural effusion 10. A. fib with RVR Plan: Continue on current medication regime , amiodarone, IV steroids, nebulized bronchodilators , insulin drip monitoring and symptomatic treatment. Potential thoracentesis and PEG tube pending patient's progress over the weekend. Maintain CIWA protocol. GI and DVT prophylaxis in place. Further recommendations to follow. The impression and plan of care has been dictated as directed. : I performed a H&P examination of this patient and discussed the same with the dictator. I agree with the dictator's note. Any additional findings/opinions/ etc. will be noted.
[2016-11-18 15:52] LABS: Glucose,Whole Blood 136 mg/dL (75-99)
[2016-11-18] MEDS: LACTATED RINGERS 1,000 ML IV SCH (17:49)
[2016-11-18 18:17] LABS: Glucose,Whole Blood 136 mg/dL (75-99)
[2016-11-18 20:02] LABS: Glucose,Whole Blood 119 mg/dL (75-99)
[2016-11-18] MEDS: SENNOSIDES-DOCUSATE SODIUM 1 EACH TAB PO SCH (20:03)
[2016-11-18] MEDS: LISINOPRIL 10 MG TAB PO SCH (20:03)
[2016-11-18] MEDS: AMIODARONE 200 MG TAB PO SCH (20:04)
[2016-11-18 22:28] LABS: Glucose,Whole Blood 106 mg/dL (75-99)
--- NOTE | 2016-11-18 23:02 | PN ---
DATE OF SERVICE: 11/18/2016 This 61-year-old gentleman who was admitted after CAD, CABG also had acute hypoxic respiratory failure. The patient is necessitating currently 80% FiO2 and 450 tidal volume, 13 of PEEP. Seen and evaluated the patient along with nurse practitioner. Please refer to the nurse practitioner notes and impression documented as a scribe for further information. The patient had features ARDS. Please refer to nurse practitioner notes and impressions documented as a scribe for further information.
[2016-11-18 23:16] LABS: Glucose,Whole Blood 132 mg/dL (75-99)
[2016-11-19 00:28] LABS: Glucose,Whole Blood 130 mg/dL (75-99)
[2016-11-19] MEDS: HEPARIN SODIUM,PORCINE 5,000 UNIT/ML 1 ML VIAL SQ SCH ×3 (00:29→16:08)
[2016-11-19] MEDS ORDERED: METOPROLOL TARTRATE 5 MG/5 ML VIAL IVP STA (01:44)
[2016-11-19] MEDS ORDERED: AMIODARONE 200 MG TAB PO STA (01:45)
[2016-11-19 02:22] LABS: Glucose,Whole Blood 146 mg/dL (75-99)
[2016-11-19] MEDS: IPRATROPIUM-ALBUTEROL 3 ML NEB INHALATION SCH ×4 (03:17→11:16)
[2016-11-19 03:59] LABS: Glucose,Whole Blood 129 mg/dL (75-99)
[2016-11-19 04:45] LABS: Basophils % (A) 0 %; CH 32.9; Eosinophils % (A) 0 %; HCT 30.1 % (39.0-53.0); HGB 10.3 gm/dL (13.0-17.5); Luc # (Auto) 0.32; Luc % (Auto) 2; Lymphocytes # (A) 1.1 k/uL (1.0-4.8); Lymphocytes % (A) 8 %; MCH 33.1 pg (25.0-35.0); MCHC 34.2 g/dL (31.0-37.0); Mean Platelet Volume 7.2; Monocytes % (A) 7 %; Neutrophils # (A) 12.2 k/uL (1.3-7.7); Neutrophils % (A) 83 %; RBC 3.11 m/uL (4.30-5.90); RDW 13.9 % (11.5-15.5); WBC 14.7 k/uL (3.8-10.6); WBC (Perox) 14.96
[2016-11-19 04:53] LABS: Prothrombin Time 10.3 sec (9.0-12.0)
[2016-11-19 05:10] LABS: ALT 71 U/L (21-72); AST 59 U/L (17-59); Alkaline Phosphatase 64 U/L (38-126); Anion Gap 8 mmol/L; Blood Urea Nitrogen 38 mg/dL (9-20); Calcium 8.5 mg/dL (8.4-10.2); Carbon Dioxide 27 mmol/L (22-30); Chloride 109 mmol/L (98-107); Glucose 133 mg/dL (74-99); Non-African American GFR(MDRD) >60 (>60 ml/min/1.73 sqM); Phosphorous 3.8 mg/dL (2.5-4.5); Potassium 4.3 mmol/L (3.5-5.1); Sodium 144 mmol/L (137-145); Total Bilirubin 0.5 mg/dL (0.2-1.3); Total Protein 5.4 g/dL (6.3-8.2)
[2016-11-19 05:36] LABS: ABG PCO2 39 mmHg (35-45); ABG PH 7.43 (7.35-7.45)
[2016-11-19 05:37] LABS: ABG Base Excess 1.8 mmol/L; ABG HCO3 26 mmol/L (21-25); ABG PO2 106 mmHg (83-108); ABG TCO2 27 mmol/L (19-24)
[2016-11-19 05:57] LABS: Glucose,Whole Blood 117 mg/dL (75-99)
[2016-11-19] MEDS: PROPOFOL 500 MG in EMPTY BAG 1 BAG IV SCH ×2 (06:46→18:02)
--- NOTE | 2016-11-19 07:45 | XR ---
EXAMINATION TYPE: XR chest 1V portable DATE OF EXAM: 11/19/2016 7:02 AM COMPARISON: NONE INDICATION: Previous abnormal chest, pleural effusion TECHNIQUE: Single frontal view of the chest is obtained. FINDINGS: The heart size is mildly prominent. The pulmonary vasculature is normal. Small left pleural effusion may be present. This is improving. Subsegmental atelectasis is present at the bilateral lung bases greater on the left. Endotracheal tube is present with tip above stephanie. Nasogastric tube transverses the thorax. Catheter enters on the left the tips in the right atrium. EKG leads overlie the chest. IMPRESSION: 1. Small left pleural effusion with bibasilar subsegmental atelectasis. Findings are improving from c omparison. 2. Lines and catheters discussed above
[2016-11-19] MEDS: BUDESONIDE 1 MG/2 ML NEBU INHALATION SCH ×2 (07:51→20:31)
[2016-11-19] MEDS ORDERED: PROPOFOL 150 ML IV ONE (08:14)
[2016-11-19] MEDS: DIGOXIN 250 MCG/ML 2 ML AMP IVP SCH (08:27)
[2016-11-19] MEDS: AMIODARONE 200 MG TAB PO SCH ×2 (08:28→20:26)
[2016-11-19] MEDS: CHLORHEXIDINE GLUCONATE 15 ML CUP MUCOUS MEM SCH ×2 (08:28→20:27)
[2016-11-19] MEDS: ASPIRIN 325 MG TAB PO SCH (08:28)
[2016-11-19] MEDS: CLOPIDOGREL 75 MG TAB PO SCH (08:28)
[2016-11-19] MEDS: LISINOPRIL 10 MG TAB PO SCH ×2 (08:29→20:26)
[2016-11-19] MEDS: METOPROLOL TARTRATE 25 MG TAB PO SCH ×2 (08:29→20:21)
[2016-11-19] MEDS: methylPREDNISolone SOD SUCCI 40 MG/ML 1 ML VIAL IV SCH ×2 (08:29→20:21)
[2016-11-19] MEDS: PANTOPRAZOLE 40 MG/10 ML VIAL IVP SCH (08:29)
[2016-11-19] MEDS: THIAMINE 100 MG TAB PO SCH ×2 (08:29→20:21)
[2016-11-19 08:31] LABS: Glucose,Whole Blood 113 mg/dL (75-99)
[2016-11-19] MEDS ORDERED: DIGOXIN 250 MCG/ML 2 ML AMP IVP ONE (10:00)
[2016-11-19 10:16] LABS: Glucose,Whole Blood 125 mg/dL (75-99)
[2016-11-19 10:55] LABS: ABG Base Excess 1.2 mmol/L; ABG HCO3 25 mmol/L (21-25); ABG PCO2 35 mmHg (35-45); ABG PH 7.47 (7.35-7.45); ABG PO2 84 mmHg (83-108); ABG TCO2 26 mmol/L (19-24)
[2016-11-19] MEDS: ATORVASTATIN 40 MG TAB PO SCH (11:34)
[2016-11-19] MEDS: MULTIVITAMINS, THERA LIQUID 237 ML BOTTLE PO SCH (11:35)
--- NOTE | 2016-11-19 11:48 | PN ---
DATE OF SERVICE: 11/19/2016 This is a 61-year-old gentleman who is status post coronary artery bypass grafting, postoperative day #9. The patient does remain on the mechanical ventilator with settings of assist control 20, tidal volume 450, FiO2 45%, PEEP of 10, arterial blood gases are pO2 of 106, pCO2 38, pH 7.43. His current cash controller are lactated Ringer's at 20 mL per hour, Diprivan at 10 mcg/kg per minute, insulin drip at 2 units per hour. He is currently being nourished with Vital HP at 43 mL per hour, which is at goal. He did have issues with atrial fibrillation with rapid ventricular response last evening and the patient is currently tachycardic. We were able to wean down his FiO2 from 60% to 45% and his PEEP from 13 down to 10. Follow-up blood gases are pending. On physical exam, the patient remains sedated and intubated. Vital signs reveal blood pressure 143/74, heart rate 138, respirations 30, temperature is 99.7. He is 95% O2 saturation on 45% FiO2. His head is normocephalic. Sclerae anicteric. Oral endotracheal and gastric tubes are secured in place. His neck is supple. Trachea midline. His heart is currently irregularly irregular. S1, S2. His lungs have few scattered rhonchi, crackles in the posterior bases. His abdomen is soft. There is trace peripheral edema. No clubbing. No cyanosis. Peripheral pulses are intact. INVESTIGATIONS: Lab results reveal WBC 14.7, hemoglobin 10.3, platelet count 422,000. Sodium 144, potassium 4.3, chloride 109, CO2 of 27, BUN 38, creatinine 0.80. His medications are reviewed. IMPRESSION: 1. Coronary artery disease, status post coronary artery bypass grafting, postoperative day #9. 2. Acute hypoxic respiratory failure requiring prolonged ventilator dependence. 3. Hyperlipidemia. 4. Hypertension. 5. Atrial fibrillation. PLAN: The patient was seen and evaluated by Dr. Toro. His chest x-ray, ABGs and labs were reviewed. We will continue with daily interruption of sedation and weaning trials. His overall prognosis is quite guarded. We will continue to follow and make further recommendations based on his clinical status. Critical care time is 38 minutes.
--- NOTE | 2016-11-19 12:36 | P.PN ---
<Madhu Brush L - Last Filed: 11/19/16 12:21> Progress Note - Text CV Surgery Nursing Principal diagnosis: Coronary artery disease, status post prior stenting to his right coronary artery. Preserved left ventricular function. Hyperlipidemia. Hypertension. ETOH abuse. POD #9 total arterial non-aortic patch off-pump double coronary artery bypass grafting using in situ skeletonized right internal mammary artery to the left anterior descending artery across the anterior midline in situ totally skeletonized left internal mammary artery to the first obtuse marginal artery. Intraoperative transesophageal echocardiogram and epi-aortic scanning. Intraoperative graft flow measurements using the [employer] system Patient had postoperative mucous plugging with increasing oxygen demand requiring bronchoscopy the night of surgery. Bronchial washings negative for bacteria/viruses to date. Pt developed postoperative alcohol withdrawal requiring increased sedation and continued mechanical ventilation. Patient remains sedated on mechanical ventilation support. Patient is not moving his extremities to verbal command, although the patient is opening and closing his eyes to verbal stimuli and command. Vital Signs: Afebrile Vital Signs - 24 hr 11/18/16 11/18/16 11/18/16 13:00 14:00 15:00 Temperature Pulse Rate 68 72 79 Respiratory 23 22 24 Rate Blood Pressure 110/60 120/64 120/64 O2 Sat by Pulse 95 93 L 94 L Oximetry 11/18/16 11/18/16 11/18/16 16:00 16:47 17:00 Temperature 99.9 F H Pulse Rate 77 81 79 Respiratory 25 H 19 Rate Blood Pressure 140/75 140/75 O2 Sat by Pulse 92 L 91 L Oximetry 11/18/16 11/18/16 11/18/16 18:00 19:00 20:00 Temperature 98.6 F 99.0 F Pulse Rate 78 80 79 Respiratory 25 H 26 H 26 H Rate Blood Pressure 122/72 122/72 148/89 O2 Sat by Pulse 93 L 94 L 93 L Oximetry 11/18/16 11/18/16 11/18/16 20:35 20:50 21:00 Temperature Pulse Rate 73 73 72 Respiratory 22 Rate Blood Pressure 148/89 O2 Sat by Pulse 96 Oximetry 11/18/16 11/18/16 11/18/16 22:00 22:32 23:00 Temperature Pulse Rate 85 74 77 Respiratory 24 17 22 Rate Blood Pressure 127/68 127/68 127/68 O2 Sat by Pulse 93 L 95 94 L Oximetry 11/18/16 11/18/16 11/19/16 23:47 23:59 00:00 Temperature 99.1 F Pulse Rate 77 80 79 Respiratory 22 Rate Blood Pressure 136/70 O2 Sat by Pulse 94 L Oximetry 11/19/16 11/19/16 11/19/16 01:00 02:00 03:00 Temperature Pulse Rate 79 138 H 88 Respiratory 23 23 21 Rate Blood Pressure 136/70 104/79 104/79 O2 Sat by Pulse 94 L 95 97 Oximetry 11/19/16 11/19/16 11/19/16 03:22 03:55 04:00 Temperature 98.9 F Pulse Rate 75 77 74 Respiratory 22 Rate Blood Pressure 104/67 O2 Sat by Pulse 96 Oximetry 11/19/16 11/19/16 11/19/16 05:00 06:00 07:00 Temperature Pulse Rate 71 72 70 Respiratory 20 25 H 21 Rate Blood Pressure 104/67 O2 Sat by Pulse 97 97 97 Oximetry 11/19/16 11/19/16 11/19/16 07:54 08:00 09:00 Temperature 99.7 F H Pulse Rate 147 H 138 H 96 Respiratory 31 H 25 H Rate Blood Pressure 113/78 O2 Sat by Pulse 95 94 L Oximetry 11/19/16 11/19/16 11/19/16 10:00 11:00 11:22 Temperature 98.8 F Pulse Rate 139 H 136 H 139 H Respiratory 23 26 H Rate Blood Pressure 113/78 O2 Sat by Pulse 94 L 95 Oximetry 11/19/16 11:52 Temperature Pulse Rate 138 H Respiratory Rate Blood Pressure O2 Sat by Pulse Oximetry ABP, PAP, CO, CI - Last 8 Hours Arterial Blood Pressure 132/71 Arterial Blood Pressure 108/66 Arterial Blood Pressure 136/69 Arterial Blood Pressure 143/74 Arterial Blood Pressure 127/60 Arterial Blood Pressure 119/70 Arterial Blood Pressure 117/56 Labs: Short CBC 11/19/16 Range/Units 04:20 WBC 14.7 H (3.8-10.6) k/uL Hgb 10.3 L (13.0-17.5) gm/dL Hct 30.1 L (39.0-53.0) % Plt Count 422 (150-450) k/uL Neutrophils # 12.2 H (1.3-7.7) k/uL BMP 11/19/16 04:20 Sodium 144 Potassium 4.3 Chloride 109 H Carbon Dioxide 27 BUN 38 H Creatinine 0.80 Glucose 133 H Calcium 8.5 Liver Function 11/19/16 Range/Units 04:20 Total Bilirubin 0.5 (0.2-1.3) mg/dL AST 59 (17-59) U/L ALT 71 (21-72) U/L Alkaline Phosphatase 64 (38-126) U/L Albumin 2.6 L (3.5-5.0) g/dL IV Fluids: Lactated Ringer's at 20 mL per hour Insulin drip at 4 units per hour Propofol at 10 mcg/kg/m. Lungs: Few scattered rhonchi throughout, diminished bilateral bases. Respirations are unlabored with mechanical ventilator support. Current ventilator settings are as follows, AC 20, TV 450, FiO2 45%, peep 10. O2 sat: 95% with mechanical ventilator support, with FiO2 45%. Heart: S1S2, regular rhythm and rate, negative for S3, gallop or murmur. Bedside telemetry currently showing atrial fibrillation with rapid ventricular response heart rate 145. Sternum stable, chest incision clean with silverlon dressing clean and dry. Heart hugger in place. Knee-high CEZAR hose and sequential compression devices in place to bilateral lower extremities. Abdomen: Soft, Positive bowel sounds present in all 4 quadrants. OG tube in place with vital high-protein tube feeding infusing at 43 mL per hour which is goal. CBGs: 117-132 mg/dL with the last 24 hours. U/O: Adequate, Tay catheter for accurate I&O. 635 mL output in the last 8 hours. 24 hr Total: Intake & Output 11/17/16 11/18/16 11/19/16 11/20/16 06:59 06:59 06:59 06:59 Intake Total 2441.205 2761.649 1430.326 379.690 Output Total 2750 1160 2290 415 Balance -878.044 6210.649 -859.674 -35.310 Weight 99.2 kg 96.5 kg 99.3 kg Active Medications Hydrocodone Bitart/Acetaminophen ([place] 5-325) 2 each PO Q4HR PRN PRN Reason: Severe Pain Last Admin: 11/18/16 05:44 Dose: 2 each Hydrocodone Bitart/Acetaminophen ([place] 5-325) 1 each PO Q4HR PRN PRN Reason: Moderate Pain Albuterol/Ipratropium (Duoneb 0.5 Mg-3 Mg/3 Ml Soln) 3 ml INHALATION RT-Q4H [facility] Last Admin: 11/19/16 11:16 Dose: 3 ml Albuterol/Ipratropium (Duoneb 0.5 Mg-3 Mg/3 Ml Soln) 3 ml INHALATION RT-Q2H PRN PRN Reason: Shortness Of Breath Or Wheezing Amiodarone HCl (Cordarone) 200 mg PO BID [facility] Last Admin: 11/19/16 08:28 Dose: 200 mg Aspirin (Aspirin) 325 mg PO DAILY [facility] Last Admin: 11/19/16 08:28 Dose: 325 mg Atorvastatin Calcium (Lipitor) 40 mg PO DAILY [facility] Last Admin: 11/19/16 11:34 Dose: 40 mg Benzocaine (Hurricaine [place]) 1 applic MUCOUS MEM QID PRN PRN Reason: Mouth Irritation Last Admin: 11/14/16 11:36 Dose: 1 applic Benzocaine/Menthol (Cepacol Lozenge) 1 each MUCOUS MEM Q2H PRN PRN Reason: Sore Throat Bisacodyl (Dulcolax) 10 mg RECTAL DAILY PRN PRN Reason: Constipation Last Admin: 11/16/16 17:18 Dose: 10 mg Budesonide (Pulmicort) 1 mg INHALATION RT-BID [facility] Last Admin: 11/19/16 07:51 Dose: 1 mg Chlorhexidine Gluconate (Peridex) 15 ml MUCOUS MEM BID [facility] Last Admin: 11/19/16 08:28 Dose: 15 ml Clopidogrel Bisulfate (Plavix) 75 mg PO DAILY [facility] Last Admin: 11/19/16 08:28 Dose: 75 mg Digoxin (Lanoxin) 125 mcg IVP DAILY [facility] Last Admin: 11/19/16 08:27 Dose: 125 mcg Heparin Sodium (Porcine) (Heparin) 5,000 unit SQ Q8HR [facility] Last Admin: 11/19/16 08:28 Dose: 5,000 unit Insulin Human Regular 100 unit (/ Sodium Chloride) 101 mls @ 0 mls/hr IV .Q0M [facility]; Per Protocol PRN Reason: Protocol Last Titration: 11/19/16 11:34 Dose: 3.5 units/hr, 3.53 mls/hr Lactated Ringer's (Lactated Ringers) 1,000 mls @ 20 mls/hr IV .Q24H [facility] Last Admin: 11/18/16 17:49 Dose: 20 mls/hr Propofol 500 mg/ IV Solution 50 mls @ 0 mls/hr IV .Q0M [facility]; Titrate PRN Reason: Protocol Last Titration: 11/19/16 11:34 Dose: 0 mcg/kg/min, 0 mls/hr Iron/Minerals/Multivitamins (Theragran Liquid) 15 ml PO DAILY@1200 [facility] Last Admin: 11/19/16 11:35 Dose: 15 ml Lisinopril (Zestril) 10 mg PO BID [facility] Last Admin: 11/19/16 08:29 Dose: 10 mg Lorazepam (Ativan) 1 mg IV Q2HR PRN PRN Reason: CIWA 8 or 9 Last Admin: 11/17/16 21:25 Dose: 1 mg Lorazepam (Ativan) 1 mg IV Q1HR PRN PRN Reason: CIWA 10 to 15 Last Admin: 11/15/16 03:51 Dose: 1 mg Lorazepam (Ativan) 2 mg IV Q1HR PRN PRN Reason: CIWA 16 or higher Last Admin: 11/18/16 05:46 Dose: 2 mg Magnesium Hydroxide (Milk Of Magnesia) 2,400 mg PO BID PRN PRN Reason: Constipation Methylprednisolone Sodium Succinate (Solu-Medrol) 40 mg IV Q12HR [facility] Last Admin: 11/19/16 08:29 Dose: 40 mg Metoclopramide HCl (Reglan) 10 mg IVP Q4H PRN PRN Reason: Nausea And Vomiting Metoprolol Tartrate (Lopressor) 25 mg PO BID [facility] Last Admin: 11/19/16 08:29 Dose: 25 mg Miscellaneous Information (Magnesium Per Protocol) 1 each MISCELLANE DAILY PRN ; Protocol PRN Reason: Per Protocol Miscellaneous Information (Phosphorus Per Protocol) 1 each MISCELLANE DAILY PRN ; Protocol PRN Reason: Per Protocol Miscellaneous Information (Potassium Per Protocol) 1 each MISCELLANE DAILY PRN ; Protocol PRN Reason: Per Protocol Morphine Sulfate (Morphine Sulfate (Inj)) 2 mg IVP Q2H PRN PRN Reason: Severe Pain Last Admin: 11/17/16 22:59 Dose: 2 mg Ondansetron HCl (Zofran) 4 mg IVP Q6HR PRN PRN Reason: Nausea And Vomiting Pantoprazole Sodium (Protonix) 40 mg IVP DAILY [facility] Last Admin: 11/19/16 08:29 Dose: 40 mg Senna/Docusate Sodium (Senokot-S) 2 each PO HS [facility] Last Admin: 11/18/16 20:03 Dose: 2 each Sodium Chloride (Saline Flush) 10 ml IV BID [facility] Last Admin: 11/19/16 11:34 Dose: 10 ml Sodium Chloride (Saline Flush) 20 ml IV Q4HR PRN PRN Reason: PICC Line Sodium Chloride (Saline Flush) 10 ml IV WEEKLY [facility] Sodium Chloride (Saline Flush) 10 ml IV Q4HR PRN PRN Reason: PICC Line Thiamine HCl (Vitamin B-1) 100 mg PO BID [facility] Last Admin: 11/19/16 08:29 Dose: 100 mg Plan: 1. Continue aspirin, Lipitor, Plavix, heparin, Lopressor, lisinopril, digoxin. Extra dose of digoxin given this a.m. 0.125 g IV 1. 2. Continue amiodarone for atrial fibrillation prophylaxis. Extra dose of amiodarone was given last p.m. Per the OG tube. 3. Ventilator management per pulmonology, wean O2 as tolerated. FiO2 decreased to 45% and PEEP decreased to 10 this a.m. 4. Physical therapy for range of motion exercises. 5. Insulin/diabetic management per primary care service. 6. Continue CIWA protocol for alcohol withdrawal. 7. Daily labs, chest x-rays. Digoxin level in a.m. 8. GI/DVT prophylaxis. 9. Diprivan drip placed on hold to evaluate underlying mentation. 10. More recommendations as patient progresses. <Thaddeus Kessler - Last Filed: 11/22/16 11:42> Progress Note - Text The patient was seen and examined. I agree with the above assessment and plan. He is opening his eyes but is overall quite debilitated and not really moving his extremities. He has been on CIWA protocol secondary to alcohol withdrawal. He has had intermittent atrial fibrillation but is currently in normal sinus rhythm. We'll continue to wean the vent as tolerated. He may need tracheostomy later this week if not extubated.
[2016-11-19] MEDS: INSULIN REGULAR 100 UNIT in SODIUM CHLORIDE 0.9% 100 ML IV SCH (12:48)
[2016-11-19 12:49] LABS: Glucose,Whole Blood 168 mg/dL (75-99)
[2016-11-19 14:27] LABS: Glucose,Whole Blood 127 mg/dL (75-99)
[2016-11-19] MEDS ORDERED: DEXTROSE 5% IN WATER 100 ML with AMIODARONE 150 MG IV ONE ×2 (15:00→22:55)
[2016-11-19] MEDS: LACTATED RINGERS 1,000 ML IV SCH (15:06)
[2016-11-19] MEDS: AMIODARONE 450 MG in DEXTROSE 5% IN WATER 250 ML IV SCH ×4 (15:07→23:33)
[2016-11-19] MEDS ORDERED: IPRATROPIUM 0.5 MG/2.5 ML NEBU INHALATION PRN (16:00)
[2016-11-19] MEDS ORDERED: LEVALBUTEROL NEB (CONC) 1.25 MG/0.5 ML AMP INHALATION PRN (16:00)
[2016-11-19 16:08] LABS: Glucose,Whole Blood 130 mg/dL (75-99)
[2016-11-19] MEDS: IPRATROPIUM 0.5 MG/2.5 ML NEBU INHALATION SCH ×3 (16:18→23:42)
[2016-11-19] MEDS: LEVALBUTEROL NEB (CONC) 1.25 MG/0.5 ML AMP INHALATION SCH ×3 (16:18→23:42)
[2016-11-19 16:29] LABS: Magnesium 2.7 mg/dL (1.6-2.3); Potassium 4.4 mmol/L (3.5-5.1)
[2016-11-19 17:52] LABS: Glucose,Whole Blood 127 mg/dL (75-99)
--- NOTE | 2016-11-19 17:57 | P.PN ---
Subjective Principal diagnosis: Status post CABG, respiratory failure, atrial fibrillation This patient is status post aortic coronary bypass surgery. Patient has been intubated. Has been having difficulty extubating and weaning him off the respirator because of oxygenation issues. Patient is off sedation. He seemed to be waking up and following simple commands. He went into atrial fibrillation /flutter last night. Patient's heart rate is still in the range of 140. We'll going to reinitiate his IV amiodarone. Patient has received extra digoxin this morning his blood pressure is 150/76. Respiration rate is about 29. Pulse is in the 130s. Objective - Vital Signs Vital signs: Vital Signs Temp 99.1 F 11/19/16 16:00 Pulse 135 H 11/19/16 16:00 Resp 29 H 11/19/16 16:00 BP 113/78 11/19/16 10:00 Pulse Ox 94 L 11/19/16 16:00 Intake & Output 11/18/16 11/19/16 11/19/16 18:59 06:59 18:59 Intake Total 960.099 817.459 0532.708 Output Total 1285 1005 1055 Balance -324.901 -534.773 602.708 Weight 96.5 kg 99.3 kg 99.3 kg Intake: Intake, IV Titration 341.099 341.227 918.708 Amount Amiodarone 450 mg In 34.53 Dextrose 5% in Water 250 ml @ 1 MG/MIN 34.53 mls/ hr IV .Q7H31M [facility] Rx#: [id number] Dextrose 5% in Water 100 618 ml @ 618 mls/hr IV .Q10M ONE with Amiodarone 150 mg Rx#:[id number] Insulin Regular 100 unit 52.335 71.375 38.146 In Sodium Chloride 0.9% 100 ml @ Per Protocol IV .Q0M [facility] Rx#:[id number] Lactated Ringers 1,000 ml 240 240 200 @ 20 mls/hr IV .Q24H [facility] Rx#:[id number] Propofol 500 mg In Empty 48.764 29.852 28.032 Bag 1 bag @ Titrate IV . Q0M [facility] Rx#:[id number] Tube Feeding 559 129 559 Other 60 180 Output: Urine 1285 1005 1055 Other: Voiding Method Indwelling Catheter Indwelling Catheter Indwelling Catheter ABP, PAP, CO, CI - Last Documented Arterial Blood Pressure 155/76 Pulmonary Artery Pressure 46/23 Cardiac Output 6.8 Cardiac Index 3.3 - Exam GENERAL EXAM: Patient is intubated but off sedation and seems to be waking up HEENT: Normocephalic. NECK: No masses, no nuchal rigidity. CHEST: No chest wall deformity. LUNGS: Breath sounds at bases HEART: S1 and S2 normal with no audible mumurs or gallops. Regular rhythm, femorals equal on both sides.. ABDOMEN: No hepatosplenomegaly, normal bowel sounds, no guarding or rigidity. SKIN: No rashes CENTRAL NERVOUS SYSTEM: Sedated EXTREMITIES: No cyanosis, clubbing or edema. - Labs CBC & Chem 7: 11/19/16 04:20 11/19/16 16:09 Labs: Abnormal Lab Results - Last 24 Hours (Table) 11/18/16 11/18/16 11/18/16 Range/Units 18:14 19:59 22:15 WBC (3.8-10.6) k/uL RBC (4.30-5.90) m/uL Hgb (13.0-17.5) gm/dL Hct (39.0-53.0) % Neutrophils # (1.3-7.7) k/uL APTT (22.0-30.0) sec ABG pH (7.35-7.45) ABG HCO3 (21-25) mmol/L ABG Total CO2 (19-24) mmol/L ABG O2 Saturation (94-97) % Chloride (98-107) mmol/L BUN (9-20) mg/dL Glucose (74-99) mg/dL POC Glucose (mg/dL) 136 H 119 H 106 H (75-99) mg/dL Magnesium (1.6-2.3) mg/dL Total Protein (6.3-8.2) g/dL Albumin (3.5-5.0) g/dL 11/18/16 11/19/16 11/19/16 Range/Units 23:14 00:25 02:20 WBC (3.8-10.6) k/uL RBC (4.30-5.90) m/uL Hgb (13.0-17.5) gm/dL Hct (39.0-53.0) % Neutrophils # (1.3-7.7) k/uL APTT (22.0-30.0) sec ABG pH (7.35-7.45) ABG HCO3 (21-25) mmol/L ABG Total CO2 (19-24) mmol/L ABG O2 Saturation (94-97) % Chloride (98-107) mmol/L BUN (9-20) mg/dL Glucose (74-99) mg/dL POC Glucose (mg/dL) 132 H 130 H 146 H (75-99) mg/dL Magnesium (1.6-2.3) mg/dL Total Protein (6.3-8.2) g/dL Albumin (3.5-5.0) g/dL 11/19/16 11/19/16 11/19/16 Range/Units 03:56 04:20 04:20 WBC (3.8-10.6) k/uL RBC (4.30-5.90) m/uL Hgb (13.0-17.5) gm/dL Hct (39.0-53.0) % Neutrophils # (1.3-7.7) k/uL APTT 21.0 L (22.0-30.0) sec ABG pH (7.35-7.45) ABG HCO3 (21-25) mmol/L ABG Total CO2 (19-24) mmol/L ABG O2 Saturation (94-97) % Chloride 109 H (98-107) mmol/L BUN 38 H (9-20) mg/dL Glucose 133 H (74-99) mg/dL POC Glucose (mg/dL) 129 H (75-99) mg/dL Magnesium (1.6-2.3) mg/dL Total Protein 5.4 L (6.3-8.2) g/dL Albumin 2.6 L (3.5-5.0) g/dL 11/19/16 11/19/16 11/19/16 Range/Units 04:20 04:35 05:55 WBC 14.7 H (3.8-10.6) k/uL RBC 3.11 L (4.30-5.90) m/uL Hgb 10.3 L (13.0-17.5) gm/dL Hct 30.1 L (39.0-53.0) % Neutrophils # 12.2 H (1.3-7.7) k/uL APTT (22.0-30.0) sec ABG pH (7.35-7.45) ABG HCO3 26 H (21-25) mmol/L ABG Total CO2 27 H (19-24) mmol/L ABG O2 Saturation 98.0 H (94-97) % Chloride (98-107) mmol/L BUN (9-20) mg/dL Glucose (74-99) mg/dL POC Glucose (mg/dL) 117 H (75-99) mg/dL Magnesium (1.6-2.3) mg/dL Total Protein (6.3-8.2) g/dL Albumin (3.5-5.0) g/dL 11/19/16 11/19/16 11/19/16 Range/Units 08:30 10:10 10:13 WBC (3.8-10.6) k/uL RBC (4.30-5.90) m/uL Hgb (13.0-17.5) gm/dL Hct (39.0-53.0) % Neutrophils # (1.3-7.7) k/uL APTT (22.0-30.0) sec ABG pH 7.47 H (7.35-7.45) ABG HCO3 (21-25) mmol/L ABG Total CO2 26 H (19-24) mmol/L ABG O2 Saturation (94-97) % Chloride (98-107) mmol/L BUN (9-20) mg/dL Glucose (74-99) mg/dL POC Glucose (mg/dL) 113 H 125 H (75-99) mg/dL Magnesium (1.6-2.3) mg/dL Total Protein (6.3-8.2) g/dL Albumin (3.5-5.0) g/dL 11/19/16 11/19/16 11/19/16 Range/Units 12:46 14:21 16:05 WBC (3.8-10.6) k/uL RBC (4.30-5.90) m/uL Hgb (13.0-17.5) gm/dL Hct (39.0-53.0) % Neutrophils # (1.3-7.7) k/uL APTT (22.0-30.0) sec ABG pH (7.35-7.45) ABG HCO3 (21-25) mmol/L ABG Total CO2 (19-24) mmol/L ABG O2 Saturation (94-97) % Chloride (98-107) mmol/L BUN (9-20) mg/dL Glucose (74-99) mg/dL POC Glucose (mg/dL) 168 H 127 H 130 H (75-99) mg/dL Magnesium (1.6-2.3) mg/dL Total Protein (6.3-8.2) g/dL Albumin (3.5-5.0) g/dL 11/19/16 11/19/16 Range/Units 16:09 17:50 WBC (3.8-10.6) k/uL RBC (4.30-5.90) m/uL Hgb (13.0-17.5) gm/dL Hct (39.0-53.0) % Neutrophils # (1.3-7.7) k/uL APTT (22.0-30.0) sec ABG pH (7.35-7.45) ABG HCO3 (21-25) mmol/L ABG Total CO2 (19-24) mmol/L ABG O2 Saturation (94-97) % Chloride (98-107) mmol/L BUN (9-20) mg/dL Glucose (74-99) mg/dL POC Glucose (mg/dL) 127 H (75-99) mg/dL Magnesium 2.7 H (1.6-2.3) mg/dL Total Protein (6.3-8.2) g/dL Albumin (3.5-5.0) g/dL Assessment and Plan (1) Status post coronary artery bypass graft Status: Acute (2) Family history of heart disease Status: Acute (3) Hyperlipidemia Status: Acute (4) Hypertension Status: Acute (5) Nicotine dependence, chewing tobacco, uncomplicated Status: Acute (6) Atrial fibrillation Status: Acute Plan: Initiate IV Cordarone drip with a bolus. Continue the beta blockers and digoxin. Attempts to wean him off the respirator continued. Patient may need a tracheostomy. Prognosis is guarded
[2016-11-19 20:08] LABS: Glucose,Whole Blood 125 mg/dL (75-99)
[2016-11-19] MEDS: SENNOSIDES-DOCUSATE SODIUM 1 EACH TAB PO SCH (20:32)
[2016-11-19 22:10] LABS: Glucose,Whole Blood 118 mg/dL (75-99)
[2016-11-19 23:24] LABS: Glucose,Whole Blood 114 mg/dL (75-99)
[2016-11-19] MEDS ORDERED: CALCIUM GLUCONATE 1,000 MG in SODIUM CHLORIDE 0.9% 100 ML IVPB ONE (23:26)
[2016-11-19] MEDS ORDERED: ALBUMIN HUMAN 5% 250 ML in EMPTY BAG 1 BAG IVPB STA (23:27)
[2016-11-20] MEDS: HYDROcodone/APAP 5-325MG 1 EACH TAB PO PRN (00:04)
[2016-11-20] MEDS: HEPARIN SODIUM,PORCINE 5,000 UNIT/ML 1 ML VIAL SQ SCH ×2 (00:46→09:13)
[2016-11-20 01:57] LABS: Glucose,Whole Blood 150 mg/dL (75-99)
[2016-11-20] MEDS: LORazepam 2 MG/ML SYRINGE IV PRN ×2 (02:21→06:19)
[2016-11-20] MEDS: IPRATROPIUM 0.5 MG/2.5 ML NEBU INHALATION SCH ×6 (02:43→23:28)
[2016-11-20] MEDS: LEVALBUTEROL NEB (CONC) 1.25 MG/0.5 ML AMP INHALATION SCH ×6 (02:43→23:28)
[2016-11-20 04:13] LABS: Glucose,Whole Blood 151 mg/dL (75-99)
[2016-11-20 05:02] LABS: ABG PCO2 33 mmHg (35-45); ABG PH 7.45 (7.35-7.45)
[2016-11-20 05:03] LABS: ABG HCO3 23 mmol/L (21-25); ABG PO2 101 mmHg (83-108); ABG TCO2 24 mmol/L (19-24)
[2016-11-20 05:22] LABS: ALT 91 U/L (21-72); AST 52 U/L (17-59); Alkaline Phosphatase 59 U/L (38-126); Anion Gap 9 mmol/L; Blood Urea Nitrogen 42 mg/dL (9-20); Calcium 8.7 mg/dL (8.4-10.2); Carbon Dioxide 25 mmol/L (22-30); Chloride 111 mmol/L (98-107); Digoxin 0.5 ng/mL; Glucose 155 mg/dL (74-99); Non-African American GFR(MDRD) >60 (>60 ml/min/1.73 sqM); Potassium 4.5 mmol/L (3.5-5.1); Sodium 145 mmol/L (137-145); Total Bilirubin 0.7 mg/dL (0.2-1.3); Total Protein 5.6 g/dL (6.3-8.2)
[2016-11-20 06:39] LABS: Glucose,Whole Blood 127 mg/dL (75-99)
[2016-11-20] MEDS: BUDESONIDE 1 MG/2 ML NEBU INHALATION SCH ×2 (07:46→19:45)
[2016-11-20 07:57] LABS: Basophils % (A) 0 %; CH 32.6; CHCM 32.9; Eosinophils % (A) 0 %; HCT 31.3 % (39.0-53.0); HDW 2.48; HGB 10.5 gm/dL (13.0-17.5); Luc # (Auto) 0.25; Luc % (Auto) 2; Lymphocytes # (A) 1.3 k/uL (1.0-4.8); Lymphocytes % (A) 9 %; MCH 33.5 pg (25.0-35.0); MCHC 33.6 g/dL (31.0-37.0); MCV 99.6 fL (80.0-100.0); Mean Platelet Volume 7.9; Monocytes # (A) 0.8 k/uL (0-1.0); Monocytes % (A) 5 %; Neutrophils # (A) 13.1 k/uL (1.3-7.7); Neutrophils % (A) 85 %; RBC 3.14 m/uL (4.30-5.90); WBC 15.5 k/uL (3.8-10.6)
[2016-11-20 08:04] LABS: Magnesium 2.7 mg/dL (1.6-2.3); Phosphorous 4.8 mg/dL (2.5-4.5)
[2016-11-20 08:09] LABS: Glucose,Whole Blood 145 mg/dL (75-99)
--- NOTE | 2016-11-20 08:12 | XR ---
EXAMINATION TYPE: XR chest 1V portable DATE OF EXAM: 11/20/2016 8:08 AM COMPARISON: NONE INDICATION: Shortness of breath TECHNIQUE: Single frontal view of the chest is obtained. FINDINGS: The heart size is mildly prominent. The pulmonary vasculature is normal. Left lower lobe infiltrate is present. There is silhouetting left diaphragm. Endotracheal tube is present above the stephanie. Nasogastric tube transverses the thorax tip in the abd omen. Catheter enters on the left tip in right atrium. Sternotomy wires are in the midline. EKG leads overlie the chest. IMPRESSION: 1. Left lower lobe infiltrate. Correlate for pneumonia. Follow-up is recommended. 2. Lines and catheters discussed above.
[2016-11-20] MEDS: AMIODARONE 200 MG TAB PO SCH ×2 (08:17→20:09)
--- NOTE | 2016-11-20 08:26 | PN ---
DATE OF SERVICE: 11/19/2016 This 61-year-old gentleman who was admitted after CAD/CABG also had respiratory failure. The patient appears to be slightly more responsive today. FIO2 down to 40%. The patient also had atrial fibrillation. The patient being closely monitored in the ICU. Past medical history reviewed. Review of systems could not be taken. PHYSICAL EXAMINATION: Pulse is 135 and regular. Blood pressure is ntd respiratory rate 29, temperature normal, pulse ox 95% on FIO2. HEENT: Conjunctivae normal. Oral mucosa moist. NECK: Neck is no jugular venous distention. No carotid bruit. No lymph node enlargement. CARDIOVASCULAR: S1, S2 muffled. No S3, no S4. RESPIRATORY: Breath sounds diminished at the bases. A few scattered rhonchi and crackles. ABDOMEN: Soft, nontender. No mass palpable. LEGS: No edema. No swelling. CENTRAL NERVOUS SYSTEM: No focal deficits. LABS: ABGs noted. Otherwise, WBC 14.7. Hemoglobin 10.3. Sodium 144. ASSESSMENT: 1. Coronary artery disease status post coronary artery bypass grafting. 2. Acute hypoxic respiratory failure, on mechanical ventilation. 3. Chronic obstructive pulmonary disease, acute exacerbation. 4. Early delirium tremens, CIWA protocol. 5. Right upper and lower lobe collapse secondary to mucous plugging and chest bronchoscopy. 6. Hypertension history. 7. Ongoing nicotine dependence. 8. Chewing tobacco. 9. Bibasilar atelectasis. 10. Left pleural effusion. 11. Atrial fibrillation with rapid ventricular rate. 12. FULL CODE. RECOMMENDATIONS AND DISCUSSION: In this 61-year-old gentleman who was admitted with multiple medical problems as mentioned earlier at this time I recommend to continue current medications, continue symptomatic treatment, bronchodilators, monitor blood sugars closely with insulin drip. Otherwise mechanical ventilation by Dr. Toro. Further recommendations to follow. MTDD
[2016-11-20] MEDS ORDERED: METOPROLOL TARTRATE 5 MG/5 ML VIAL IVP ONE (09:05)
[2016-11-20] MEDS: methylPREDNISolone SOD SUCCI 40 MG/ML 1 ML VIAL IV SCH ×2 (09:12→20:07)
[2016-11-20] MEDS: DIGOXIN 250 MCG/ML 2 ML AMP IVP SCH (09:12)
[2016-11-20] MEDS: PANTOPRAZOLE 40 MG/10 ML VIAL IVP SCH (09:12)
[2016-11-20] MEDS: CLOPIDOGREL 75 MG TAB PO SCH (09:13)
[2016-11-20] MEDS: ATORVASTATIN 40 MG TAB PO SCH (09:13)
[2016-11-20] MEDS: ASPIRIN 325 MG TAB PO SCH (09:13)
[2016-11-20] MEDS: CHLORHEXIDINE GLUCONATE 15 ML CUP MUCOUS MEM SCH ×2 (09:13→20:07)
[2016-11-20] MEDS: THIAMINE 100 MG TAB PO SCH ×2 (09:14→20:06)
[2016-11-20 10:29] LABS: Glucose,Whole Blood 150 mg/dL (75-99)
[2016-11-20] MEDS: LISINOPRIL 10 MG TAB PO SCH ×2 (10:44→20:09)
[2016-11-20 11:10] LABS: ABG HCO3 22 mmol/L (21-25); ABG Oxygen Saturation 98.1 % (94-97); ABG PCO2 32 mmHg (35-45); ABG PH 7.46 (7.35-7.45); ABG PO2 99 mmHg (83-108); ABG TCO2 23 mmol/L (19-24)
[2016-11-20] MEDS: HEPARIN SODIUM,PORCINE 5,000 UNIT/ML 1 ML VIAL IV PRN ×2 (11:18→16:59)
[2016-11-20] MEDS: HEPARIN SODIUM,PORCINE/D5W PMX 25,000 UNIT in DEXTROSE/WATER 1 500ML.BAG IV SCH (11:19)
[2016-11-20] MEDS: SODIUM CHLORIDE 0.9% 1,000 ML IV SCH (11:20)
[2016-11-20] MEDS: INSULIN REGULAR 100 UNIT in SODIUM CHLORIDE 0.9% 100 ML IV SCH (11:24)
[2016-11-20] MEDS: MULTIVITAMINS, THERA LIQUID 237 ML BOTTLE PO SCH (11:25)
[2016-11-20] MEDS ORDERED: DIGOXIN 100 MCG/ML 1 ML AMP IVP ONE (11:30)
[2016-11-20 12:38] LABS: Glucose,Whole Blood 129 mg/dL (75-99)
[2016-11-20] MEDS ORDERED: PROPOFOL 50 ML IV ONE (13:15)
[2016-11-20 13:56] LABS: Glucose,Whole Blood 148 mg/dL (75-99)
[2016-11-20] MEDS: PROPOFOL 500 MG in EMPTY BAG 1 BAG IV SCH ×3 (14:00→23:49)
--- NOTE | 2016-11-20 15:15 | PN ---
DATE OF SERVICE: 11/20/2016 This is a 61-year-old gentleman who is status post coronary artery bypass grafting, postoperative day #10. He does remain on the mechanical ventilator at settings of assist control 20, tidal volume 450, FiO2 of 40% and a PEEP of 10. His morning blood gases revealed a pO2 of 101, pCO2 of 33 and a pH of 7.45. His current drips are lactated Ringer's at 20 mL per hour, insulin at 3.5 units/h. Currently off Diprivan for daily interruption of sedation. He is on amiodarone drip at 0.5 mg per minute. He is being nourished with Vital HP at 43 mL per hour, which is goal. He did have some issues with hypotension last night and received albumin well. He has had ongoing issues with atrial fibrillation. His chest x-ray today reveals atelectasis of the left mid lung. On physical exam, he is alert and following some simple commands, but remained very weak. Vital signs reveal blood pressure 153/85, heart rate 141, respirations 22, temperature is 97.8. He is 97% O2 saturation on 40% FiO2. His head is normocephalic. Sclerae anicteric. Oral endotracheal and gastric tubes are secured in place. His neck is supple. Trachea midline. His heart is irregularly irregular. S1, S2, tachycardic. His lungs have few scattered rhonchi, crackles in the posterior bases. His abdomen is soft. There is trace peripheral edema. No clubbing. No cyanosis. Peripheral pulses are intact. INVESTIGATIONS: Chest x-ray reveals atelectasis of the left mid lung and infiltrate of the left lower lobe. Lab results reveal WBCs 15.5, hemoglobin 10.5, platelet count 418,000. Sodium 145, potassium 4.5, chloride 111, CO2 of 25, BUN 42, creatinine 0.80. Digoxin level 0.5. Medications are reviewed. IMPRESSION: 1. Coronary artery disease, status post coronary artery bypass grafting, postoperative day #10. 2. Acute hypoxic respiratory failure requiring prolonged ventilatory dependence, status post bronchoscopy with bronchioalveolar with negative cultures. 3. Hyperlipidemia. 4. Hypertension. 5. Atrial fibrillation with a rapid ventricular response. 6. History of excessive alcohol use with suspected alcohol withdrawal. PLAN: The patient was seen and evaluated by Dr. Toro. His chest x-ray, ABGs and labs were reviewed. We did give the patient another a daily interruption of sedation. He remains quite weak and not pulling good tidal volumes on pressure support and CPAP. There was also no cuff leak detected. Will continue with his current vent settings other then we will drop from PEEP from 10 down to 5. We will continue to give him daily interruption of sedation and weaning trials. Will repeat his chest x-ray, ABGs and labs in the a.m. We will continue to follow and make further recommendations based on his clinical status. Critical care time is 35 minutes.
--- NOTE | 2016-11-20 15:49 | P.PN ---
Progress Note - Text CV Surgery Nursing Principal diagnosis: Coronary artery disease, status post prior stenting to his right coronary artery. Preserved left ventricular function. Hyperlipidemia. Hypertension. ETOH abuse. POD #10 total arterial non-aortic patch off-pump double coronary artery bypass grafting using in situ skeletonized right internal mammary artery to the left anterior descending artery across the anterior midline in situ totally skeletonized left internal mammary artery to the first obtuse marginal artery. Intraoperative transesophageal echocardiogram and epi-aortic scanning. Intraoperative graft flow measurements using the [employer] system Patient had postoperative mucous plugging with increasing oxygen demand requiring bronchoscopy the night of surgery. Bronchial washings negative for bacteria/viruses to date. Pt developed postoperative alcohol withdrawal requiring increased sedation and continued mechanical ventilation. Patient is awake and alert, following simple commands appropriately moving all 4 extremities. He is currently on a CPAP trial. Vital Signs: Afebrile Vital Signs - 24 hr 11/19/16 11/19/16 11/19/16 11:22 11:52 12:00 Temperature Pulse Rate 139 H 138 H 139 H Respiratory 24 Rate Blood Pressure O2 Sat by Pulse 93 L Oximetry 11/19/16 11/19/16 11/19/16 13:00 14:00 15:00 Temperature Pulse Rate 138 H 130 H 143 H Respiratory 29 H 23 23 Rate Blood Pressure O2 Sat by Pulse 94 L 93 L 93 L Oximetry 11/19/16 11/19/16 11/19/16 16:00 17:00 18:00 Temperature 99.1 F Pulse Rate 135 H 141 H 139 H Respiratory 29 H 20 20 Rate Blood Pressure 92/69 92/69 O2 Sat by Pulse 94 L 92 L 93 L Oximetry 11/19/16 11/19/16 11/19/16 19:00 20:00 21:00 Temperature 97.0 F L Pulse Rate 138 H 140 H 139 H Respiratory 24 28 H 20 Rate Blood Pressure 109/80 109/80 O2 Sat by Pulse 93 L 92 L 92 L Oximetry 11/19/16 11/19/16 11/19/16 22:00 23:00 23:38 Temperature 99.1 F Pulse Rate 138 H 140 H 140 H Respiratory 23 22 24 Rate Blood Pressure O2 Sat by Pulse 92 L 93 L 91 L Oximetry 11/20/16 11/20/16 11/20/16 00:00 01:00 02:00 Temperature Pulse Rate 141 H 134 H 133 H Respiratory 24 20 29 H Rate Blood Pressure 100/71 100/71 O2 Sat by Pulse 92 L 95 95 Oximetry 11/20/16 11/20/16 11/20/16 03:00 04:00 05:00 Temperature Pulse Rate 113 H 102 H 122 H Respiratory 20 20 22 Rate Blood Pressure O2 Sat by Pulse 93 L 95 95 Oximetry 11/20/16 11/20/16 11/20/16 06:00 07:00 07:50 Temperature Pulse Rate 126 H 106 H 102 H Respiratory 20 20 Rate Blood Pressure 109/73 O2 Sat by Pulse 95 94 L Oximetry 11/20/16 11/20/16 11/20/16 08:00 08:15 09:00 Temperature 97.8 F Pulse Rate 71 107 H 141 H Respiratory 22 22 Rate Blood Pressure 109/73 O2 Sat by Pulse 97 97 Oximetry 11/20/16 10:00 Temperature Pulse Rate 98 Respiratory 20 Rate Blood Pressure O2 Sat by Pulse 95 Oximetry ABP, PAP, CO, CI - Last 8 Hours Arterial Blood Pressure 153/77 Arterial Blood Pressure 153/85 Arterial Blood Pressure 161/82 Arterial Blood Pressure 110/62 Arterial Blood Pressure 143/83 Arterial Blood Pressure 121/72 Arterial Blood Pressure 111/56 Labs: Short CBC 11/20/16 Range/Units 04:45 WBC 15.5 H (3.8-10.6) k/uL Hgb 10.5 L (13.0-17.5) gm/dL Hct 31.3 L (39.0-53.0) % Plt Count 418 (150-450) k/uL Neutrophils # 13.1 H (1.3-7.7) k/uL BMP 11/19/16 11/20/16 16:09 04:45 Sodium 145 Potassium 4.4 4.5 Chloride 111 H Carbon Dioxide 25 BUN 42 H Creatinine 0.80 Glucose 155 H Calcium 8.7 Liver Function 11/20/16 Range/Units 04:45 Total Bilirubin 0.7 (0.2-1.3) mg/dL AST 52 (17-59) U/L ALT 91 H (21-72) U/L Alkaline Phosphatase 59 (38-126) U/L Albumin 2.8 L (3.5-5.0) g/dL IV Fluids: lactated Ringer's at 20 mL/h Insulin drip at 3.5 units per hour. Lungs: few scattered rhonchi throughout, diminished bilateral bases. Respirations are unlabored with mechanical ventilator support. Current ventilator settings are as follows, CPAP 5, FiO2 40%, pressure support 5. O2 sat: 98% with 40% FiO2 support. Heart: S1S2, irregular rhythm with a tachycardic rate, negative for S3, gallop or murmur. Bedside telemetry showing atrial flutter heart rate 143. Sternum stable, chest incision clean with silverlon dressing clean and dry. Heart hugger in place. Knee high CEZAR hose and sequential compression devices in place to bilateral lower extremities. Abdomen: Soft, Positive bowel sounds present in all 4 quadrants, OG tube in place with vital high-protein to feeding infusing at 43 mL per hour which is goal. 30 mL of water flushes every 4 hours. CBGs: 114-150 mg/dL in the last 24 hours. U/O: adequate, Tay catheter for accurate I&O. 24 hr Total: Intake & Output 11/18/16 11/19/16 11/20/16 11/21/16 06:59 06:59 06:59 06:59 Intake Total 2761.649 3331.313 7565.276 406.938 Output Total 1160 2290 1910 565 Balance 1601.649 -859.674 864.276 -158.062 Weight 96.5 kg 99.3 kg 99.9 kg 99.9 kg Active Medications Hydrocodone Bitart/Acetaminophen (Fisher 5-325) 2 each PO Q4HR PRN PRN Reason: Severe Pain Last Admin: 11/20/16 00:04 Dose: 2 each Hydrocodone Bitart/Acetaminophen (Fisher 5-325) 1 each PO Q4HR PRN PRN Reason: Moderate Pain Amiodarone HCl (Cordarone) 200 mg PO BID [facility] Last Admin: 11/20/16 08:17 Dose: Not Given Aspirin (Aspirin) 325 mg PO DAILY [facility] Last Admin: 11/20/16 09:13 Dose: 325 mg Atorvastatin Calcium (Lipitor) 40 mg PO DAILY [facility] Last Admin: 11/20/16 09:13 Dose: 40 mg Benzocaine (Hurricaine Patten) 1 applic MUCOUS MEM QID PRN PRN Reason: Mouth Irritation Last Admin: 11/14/16 11:36 Dose: 1 applic Benzocaine/Menthol (Cepacol Lozenge) 1 each MUCOUS MEM Q2H PRN PRN Reason: Sore Throat Bisacodyl (Dulcolax) 10 mg RECTAL DAILY PRN PRN Reason: Constipation Last Admin: 11/16/16 17:18 Dose: 10 mg Budesonide (Pulmicort) 1 mg INHALATION RT-BID [facility] Last Admin: 11/20/16 07:46 Dose: 1 mg Chlorhexidine Gluconate (Peridex) 15 ml MUCOUS MEM BID [facility] Last Admin: 11/20/16 09:13 Dose: 15 ml Digoxin (Lanoxin) 250 mcg IVP DAILY [facility] Digoxin (Lanoxin Pediatric) 125 mcg IVP ONCE ONE Stop: 11/20/16 11:31 Heparin Sodium (Porcine) (Heparin) 0 unit IV PER PROTOCOL PRN; Protocol PRN Reason: Low PTT Insulin Human Regular 100 unit (/ Sodium Chloride) 101 mls @ 0 mls/hr IV .Q0M [facility]; Per Protocol PRN Reason: Protocol Last Titration: 11/20/16 10:44 Dose: 4 units/hr, 4.04 mls/hr Propofol 500 mg/ IV Solution 50 mls @ 0 mls/hr IV .Q0M [facility]; Titrate PRN Reason: Protocol Last Titration: 11/20/16 02:53 Dose: Infused Amiodarone HCl 450 mg/ (Dextrose/Water) 259 mls @ 34.53 mls/hr IV .Q7H31M [facility]; 1 MG/MIN PRN Reason: Protocol Stop: 11/20/16 15:16 Last Admin: 11/19/16 23:33 Dose: 0.5 mg/min, 17.26 mls/hr Heparin Sodium/Dextrose 25,000 (unit/ IV Solution) 500 mls @ 19.98 mls/hr IV .Q24H [facility]; 10 UNITS/KG/HR PRN Reason: Protocol Sodium Chloride (Saline 0.9%) 1,000 mls @ 20 mls/hr IV .Q24H [facility] Ipratropium [place] (Atrovent Nebulized) 0.5 mg INHALATION RT-Q4H [facility] Last Admin: 11/20/16 07:47 Dose: 0.5 mg Ipratropium [place] (Atrovent Nebulized) 0.5 mg INHALATION RT-Q2H PRN PRN Reason: Shortness Of Breath Or Wheezing Iron/Minerals/Multivitamins (Theragran Liquid) 15 ml PO DAILY@1200 [facility] Last Admin: 11/19/16 11:35 Dose: 15 ml Levalbuterol HCl (Xopenex Nebulized (Conc)) 1.25 mg INHALATION RT-Q4H [facility] Last Admin: 11/20/16 07:47 Dose: 1.25 mg Levalbuterol HCl (Xopenex Nebulized (Conc)) 1.25 mg INHALATION RT-Q2H PRN PRN Reason: Shortness Of Breath Lisinopril (Zestril) 10 mg PO BID [facility] Last Admin: 11/20/16 10:44 Dose: Not Given Lorazepam (Ativan) 1 mg IV Q2HR PRN PRN Reason: CIWA 8 or 9 Last Admin: 11/20/16 06:19 Dose: 1 mg Lorazepam (Ativan) 1 mg IV Q1HR PRN PRN Reason: CIWA 10 to 15 Last Admin: 11/15/16 03:51 Dose: 1 mg Lorazepam (Ativan) 2 mg IV Q1HR PRN PRN Reason: CIWA 16 or higher Last Admin: 11/20/16 02:21 Dose: 2 mg Magnesium Hydroxide (Milk Of Magnesia) 2,400 mg PO BID PRN PRN Reason: Constipation Methylprednisolone Sodium Succinate (Solu-Medrol) 40 mg IV Q12HR [facility] Last Admin: 11/20/16 09:12 Dose: 40 mg Metoclopramide HCl (Reglan) 10 mg IVP Q4H PRN PRN Reason: Nausea And Vomiting Metoprolol Tartrate (Lopressor) 50 mg PO TID [facility] Miscellaneous Information (Magnesium Per Protocol) 1 each MISCELLANE DAILY PRN ; Protocol PRN Reason: Per Protocol Miscellaneous Information (Phosphorus Per Protocol) 1 each MISCELLANE DAILY PRN ; Protocol PRN Reason: Per Protocol Miscellaneous Information (Potassium Per Protocol) 1 each MISCELLANE DAILY PRN ; Protocol PRN Reason: Per Protocol Morphine Sulfate (Morphine Sulfate (Inj)) 2 mg IVP Q2H PRN PRN Reason: Severe Pain Last Admin: 11/17/16 22:59 Dose: 2 mg Ondansetron HCl (Zofran) 4 mg IVP Q6HR PRN PRN Reason: Nausea And Vomiting Pantoprazole Sodium (Protonix) 40 mg IVP DAILY [facility] Last Admin: 11/20/16 09:12 Dose: 40 mg Senna/Docusate Sodium (Senokot-S) 2 each PO HS [facility] Last Admin: 11/19/16 20:32 Dose: 2 each Sodium Chloride (Saline Flush) 10 ml IV BID [facility] Last Admin: 11/20/16 09:14 Dose: 10 ml Sodium Chloride (Saline Flush) 20 ml IV Q4HR PRN PRN Reason: PICC Line Sodium Chloride (Saline Flush) 10 ml IV WEEKLY [facility] Sodium Chloride (Saline Flush) 10 ml IV Q4HR PRN PRN Reason: PICC Line Thiamine HCl (Vitamin B-1) 100 mg PO BID [facility] Last Admin: 11/20/16 09:14 Dose: 100 mg Plan: 1. Continue aspirin, Lipitor, Lopressor, lisinopril, digoxin. Extra dose of digoxin given this a.m. 0.125 mg IV 1. Digoxin will be increased to 0.25 mg IV daily. 2. Continue amiodarone for atrial fibrillation/atrial flutter prophylaxis. 3. Ventilator management per Dr Toro, wean O2 as tolerated. CPAP trial and progress. 4. Physical therapy for range of motion exercises. 5. Insulin/diabetic management per primary care service. 6. Continue CIWA protocol for alcohol withdrawal. 7. Daily labs, chest x-rays. Digoxin level in a.m. 8. GI/DVT prophylaxis. 9. Diprivan drip placed on hold to evaluate underlying mentation. 10. Heparin protocol initiated for atrial fibrillation/atrial flutter. 11. Water flushes for the tube feeding have an increased to 100 mL every 4 hours. 12. More recommendations as patient progresses.
[2016-11-20 15:54] LABS: Glucose,Whole Blood 145 mg/dL (75-99)
[2016-11-20] MEDS ORDERED: PROPOFOL 150 ML IV ONE (16:42)
[2016-11-20 16:46] LABS: Anion Gap 8 mmol/L; Blood Urea Nitrogen 42 mg/dL (9-20); Calcium 8.4 mg/dL (8.4-10.2); Carbon Dioxide 24 mmol/L (22-30); Chloride 111 mmol/L (98-107); Glucose 147 mg/dL (74-99); Magnesium 2.6 mg/dL (1.6-2.3); Non-African American GFR(MDRD) >60 (>60 ml/min/1.73 sqM); Potassium 4.2 mmol/L (3.5-5.1); Sodium 143 mmol/L (137-145)
[2016-11-20] MEDS: METOPROLOL TARTRATE 50 MG TAB PO SCH ×2 (16:54→23:22)
[2016-11-20] MEDS: AMIODARONE 450 MG in DEXTROSE 5% IN WATER 250 ML IV SCH ×4 (18:38→18:39)
[2016-11-20 19:58] LABS: Glucose,Whole Blood 136 mg/dL (75-99)
[2016-11-20] MEDS: SENNOSIDES-DOCUSATE SODIUM 1 EACH TAB PO SCH (20:07)
[2016-11-20] MEDS: LACTULOSE 20 GM/30 ML CUP PO SCH (20:08)
--- NOTE | 2016-11-20 20:11 | P.PN ---
Subjective Principal diagnosis: Status post CABG, respiratory failure, atrial fibrillation This patient is status post aorto coronary bypass surgery. Patient has been in ICU for a long time requiring ventilatory support. Patient is also in flutter with rapid ventricular response. Patient has been resistant to the treatment. Patient has been treated with multiple medications including beta blockers and digoxin and also amiodarone. Patient's metoprolol dose was increased to 50 mg 3 times a day. Rest of the medication to be continued. His the sedation is being weaned off. He seemed to be responding appropriately Objective - Vital Signs Vital signs: Vital Signs Temp 98.4 F 11/20/16 16:00 Pulse 56 L 11/20/16 20:00 Resp 17 11/20/16 19:00 BP 109/73 11/20/16 08:00 Pulse Ox 94 L 11/20/16 19:00 Intake & Output 11/20/16 11/20/16 11/21/16 06:59 18:59 06:59 Intake Total 222.638 6336.251 117.2 Output Total 755 1300 30 Balance 112.188 710.251 87.2 Weight 99.9 kg 99.9 kg Intake: IV 20 0.9 at 20 ml/hr 20 Intake, IV Titration 695.188 855.251 31.2 Amount Amiodarone 450 mg In 257.814 249.407 Dextrose 5% in Water 250 ml @ 1 MG/MIN 34.53 mls/ hr IV .Q7H31M [facility] Rx#: [id number] Calcium Gluconate 1,000 100 mg In Sodium Chloride 0.9 % 100 ml @ 100 mls/hr IVPB ONCE ONE Rx#: [id number] Heparin Sodium,Porcine/ 251.415 D5w Pmx 25,000 unit In Dextrose/Water 1 500ml. bag @ 10 UNITS/KG/HR 19. 98 mls/hr IV .Q24H [facility] Rx #:[id number] Insulin Regular 100 unit 47.374 42.706 In Sodium Chloride 0.9% 100 ml @ Per Protocol IV .Q0M [facility] Rx#:[id number] Lactated Ringers 1,000 ml 240 60 @ 20 mls/hr IV .Q24H [facility] Rx#:[id number] Propofol 150 ml As IV . 33.9 11.2 [facility] Rx#:[id number] Propofol 50 ml As IV .STK 11.2 -[facility] Rx#:[id number] Propofol 500 mg In Empty 50.000 46.623 Bag 1 bag @ Titrate IV . Q0M [facility] Rx#:[id number] Sodium Chloride 0.9% 1, 160 20 000 ml @ 20 mls/hr IV . Q24H [facility] Rx#:[id number] Tube Feeding 172 645 86 Other 490 Output: Urine 755 1300 30 Other: Voiding Method Indwelling Catheter Indwelling Catheter ABP, PAP, CO, CI - Last Documented Arterial Blood Pressure 120/53 Pulmonary Artery Pressure 46/23 Cardiac Output 6.8 Cardiac Index 3.3 - Exam GENERAL EXAM: Patient is intubated but off sedation and seems to be waking up HEENT: Normocephalic. NECK: No masses, no nuchal rigidity. CHEST: No chest wall deformity. LUNGS: Breath sounds at bases HEART: S1 and S2 normal with no audible mumurs or gallops. Regular rhythm, femorals equal on both sides.. ABDOMEN: No hepatosplenomegaly, normal bowel sounds, no guarding or rigidity. SKIN: No rashes CENTRAL NERVOUS SYSTEM: Sedated EXTREMITIES: No cyanosis, clubbing or edema. - Labs CBC & Chem 7: 11/20/16 04:45 11/20/16 15:56 Labs: Abnormal Lab Results - Last 24 Hours (Table) 11/19/16 11/19/16 11/19/16 Range/Units 20:05 22:08 23:22 WBC (3.8-10.6) k/uL RBC (4.30-5.90) m/uL Hgb (13.0-17.5) gm/dL Hct (39.0-53.0) % Neutrophils # (1.3-7.7) k/uL APTT (22.0-30.0) sec ABG pH (7.35-7.45) ABG pCO2 (35-45) mmHg ABG O2 Saturation (94-97) % Chloride (98-107) mmol/L BUN (9-20) mg/dL Glucose (74-99) mg/dL POC Glucose (mg/dL) 125 H 118 H 114 H (75-99) mg/dL Phosphorus (2.5-4.5) mg/dL Magnesium (1.6-2.3) mg/dL ALT (21-72) U/L Total Protein (6.3-8.2) g/dL Albumin (3.5-5.0) g/dL 11/20/16 11/20/16 11/20/16 Range/Units 01:54 04:10 04:30 WBC (3.8-10.6) k/uL RBC (4.30-5.90) m/uL Hgb (13.0-17.5) gm/dL Hct (39.0-53.0) % Neutrophils # (1.3-7.7) k/uL APTT (22.0-30.0) sec ABG pH (7.35-7.45) ABG pCO2 33 L (35-45) mmHg ABG O2 Saturation 98.0 H (94-97) % Chloride (98-107) mmol/L BUN (9-20) mg/dL Glucose (74-99) mg/dL POC Glucose (mg/dL) 150 H 151 H (75-99) mg/dL Phosphorus (2.5-4.5) mg/dL Magnesium (1.6-2.3) mg/dL ALT (21-72) U/L Total Protein (6.3-8.2) g/dL Albumin (3.5-5.0) g/dL 11/20/16 11/20/16 11/20/16 Range/Units 04:45 04:45 04:45 WBC 15.5 H (3.8-10.6) k/uL RBC 3.14 L (4.30-5.90) m/uL Hgb 10.5 L (13.0-17.5) gm/dL Hct 31.3 L (39.0-53.0) % Neutrophils # 13.1 H (1.3-7.7) k/uL APTT (22.0-30.0) sec ABG pH (7.35-7.45) ABG pCO2 (35-45) mmHg ABG O2 Saturation (94-97) % Chloride 111 H (98-107) mmol/L BUN 42 H (9-20) mg/dL Glucose 155 H (74-99) mg/dL POC Glucose (mg/dL) (75-99) mg/dL Phosphorus 4.8 H (2.5-4.5) mg/dL Magnesium 2.7 H (1.6-2.3) mg/dL ALT 91 H (21-72) U/L Total Protein 5.6 L (6.3-8.2) g/dL Albumin 2.8 L (3.5-5.0) g/dL 11/20/16 11/20/16 11/20/16 Range/Units 06:37 08:02 09:40 WBC (3.8-10.6) k/uL RBC (4.30-5.90) m/uL Hgb (13.0-17.5) gm/dL Hct (39.0-53.0) % Neutrophils # (1.3-7.7) k/uL APTT (22.0-30.0) sec ABG pH 7.46 H (7.35-7.45) ABG pCO2 32 L (35-45) mmHg ABG O2 Saturation 98.1 H (94-97) % Chloride (98-107) mmol/L BUN (9-20) mg/dL Glucose (74-99) mg/dL POC Glucose (mg/dL) 127 H 145 H (75-99) mg/dL Phosphorus (2.5-4.5) mg/dL Magnesium (1.6-2.3) mg/dL ALT (21-72) U/L Total Protein (6.3-8.2) g/dL Albumin (3.5-5.0) g/dL 11/20/16 11/20/16 11/20/16 Range/Units 10:12 10:16 12:24 WBC (3.8-10.6) k/uL RBC (4.30-5.90) m/uL Hgb (13.0-17.5) gm/dL Hct (39.0-53.0) % Neutrophils # (1.3-7.7) k/uL APTT 20.6 L (22.0-30.0) sec ABG pH (7.35-7.45) ABG pCO2 (35-45) mmHg ABG O2 Saturation (94-97) % Chloride (98-107) mmol/L BUN (9-20) mg/dL Glucose (74-99) mg/dL POC Glucose (mg/dL) 150 H 129 H (75-99) mg/dL Phosphorus (2.5-4.5) mg/dL Magnesium (1.6-2.3) mg/dL ALT (21-72) U/L Total Protein (6.3-8.2) g/dL Albumin (3.5-5.0) g/dL 11/20/16 11/20/16 11/20/16 Range/Units 13:54 15:50 15:56 WBC (3.8-10.6) k/uL RBC (4.30-5.90) m/uL Hgb (13.0-17.5) gm/dL Hct (39.0-53.0) % Neutrophils # (1.3-7.7) k/uL APTT 41.4 H (22.0-30.0) sec ABG pH (7.35-7.45) ABG pCO2 (35-45) mmHg ABG O2 Saturation (94-97) % Chloride (98-107) mmol/L BUN (9-20) mg/dL Glucose (74-99) mg/dL POC Glucose (mg/dL) 148 H 145 H (75-99) mg/dL Phosphorus (2.5-4.5) mg/dL Magnesium (1.6-2.3) mg/dL ALT (21-72) U/L Total Protein (6.3-8.2) g/dL Albumin (3.5-5.0) g/dL 11/20/16 11/20/16 Range/Units 15:56 19:54 WBC (3.8-10.6) k/uL RBC (4.30-5.90) m/uL Hgb (13.0-17.5) gm/dL Hct (39.0-53.0) % Neutrophils # (1.3-7.7) k/uL APTT (22.0-30.0) sec ABG pH (7.35-7.45) ABG pCO2 (35-45) mmHg ABG O2 Saturation (94-97) % Chloride 111 H (98-107) mmol/L BUN 42 H (9-20) mg/dL Glucose 147 H (74-99) mg/dL POC Glucose (mg/dL) 136 H (75-99) mg/dL Phosphorus (2.5-4.5) mg/dL Magnesium 2.6 H (1.6-2.3) mg/dL ALT (21-72) U/L Total Protein (6.3-8.2) g/dL Albumin (3.5-5.0) g/dL Assessment and Plan (1) Status post coronary artery bypass graft Status: Acute (2) Family history of heart disease Status: Acute (3) Hyperlipidemia Status: Acute (4) Hypertension Status: Acute (5) Nicotine dependence, chewing tobacco, uncomplicated Status: Acute (6) Atrial fibrillation Status: Acute Plan: Patient seemed to be showing some improvement. He is heart rhythm is in atrial flutter and seems to be difficult to control his heart rate. We'll going to increase the dose of the beta erika as blood pressure seemed to be more stable. We'll also give him IV beta erika. Rest of the medication to be continued. Pulmonary management by Dr. Toro.
--- NOTE | 2016-11-20 20:56 | PN ---
DATE OF SERVICE: 11/20/2016 This 61 -year-old gentleman admitted after CAD/CABG, acute respiratory failure. The patient is on mechanical ventilation and sedated. FIO2 is being titrated down. The most recent chest x-ray showed left lower lobe infiltrate. Pulmonary has seen the patient and is being closely monitored at this time. The vent settings are 450, tidal volume FIO2 40% and PEEP of 10. Blood gas are reviewed. The patient's insulin drip at 4.5 units per hour. Past medical history reviewed. Review of systems could not be obtained, the patient is mechanically sedated. Current medications are reviewed and include: 1. [place] 5 mg q.4h p.r.n. 2. Cordarone 200 mg p.o. b.i.d. 3. Aspirin 320 mg daily. 4. Lipitor 40 mg daily. 5. Hurricaine spray. 7. Pulmicort 1 mg b.i.d. 8. Peridex. 9. Heparin. 10. Atrovent updrafts q.i.d. 11. Xopenex. 12. Zestril. 13. Ativan. 14. Solu-Medrol 40 IV b.i.d. 15. Protonix 40 daily. PHYSICAL EXAMINATION: The patient is mechanically sedated and ventilated. Pulse 82, blood pressure 120/61, respiratory rate 23, temperature normal, pulse ox 98% on 40% FIO2. HEENT: Conjunctivae normal. Oral mucosa moist. NECK: No jugular venous distention. No carotid bruit. No lymph node enlargement. CARDIOVASCULAR: S1, S2 muffled. RESPIRATORY: Breath sounds diminished at the bases. A few scattered rhonchi and crackles. ABDOMEN: Soft, nontender. Legs: No edema. CENTRAL NERVOUS SYSTEM: Mechanically sedated. LABS: At this time shows WBC 15.5, hemoglobin is 10.5. Otherwise, ABGs noted. Glucose 148, 114 and magnesium is 2.7. Albumin is 2.8. ASSESSMENT: 1. Coronary artery disease, status post coronary artery bypass grafting. 2. Acute hypoxic respiratory failure on mechanical ventilation. 3. Chronic obstructive pulmonary disease, acute exacerbation. 4. Delirium tremens. [facility] protocol. 5. Right upper and lower lobe collapse secondary to mucous plugging and bronchoscopy. 6. Hypertension, history, essential. 7. Ongoing nicotine dependence. 8. History of chewing tobacco. 9. Bibasilar atelectasis. 10. Left pleural effusion. 11. Atrial fibrillation with rapid ventricular rate. 12. FULL CODE. RECOMMENDATIONS AND DISCUSSION: In this 61-year-old gentleman who presented with multiple complex medical issues, we will monitor the patient closely. Continue current medications. Continue symptomatic treatment. Mechanical ventilation by Dr. Toro. The white count is elevated. Recommended to continue bronchodilators. Steroids. There is no recent fever. Recommend cultures, blood and urine and sputum. Continue to monitor. Chest x-ray reviewed. Further recommendations to follow. MTDD
[2016-11-20 22:11] LABS: Glucose,Whole Blood 156 mg/dL (75-99)
[2016-11-20 23:50] LABS: Glucose,Whole Blood 141 mg/dL (75-99)
[2016-11-21] MEDS: LORazepam 2 MG/ML SYRINGE IV PRN ×3 (00:15→21:48)
[2016-11-21] MEDS: MORPHINE SULFATE 2 MG/ML SYRINGE IVP PRN ×2 (00:35→19:36)
[2016-11-21 01:54] LABS: Glucose,Whole Blood 91 mg/dL (75-99)
[2016-11-21 02:59] LABS: Glucose,Whole Blood 182 mg/dL (75-99)
[2016-11-21] MEDS: IPRATROPIUM 0.5 MG/2.5 ML NEBU INHALATION SCH ×6 (03:14→23:21)
[2016-11-21] MEDS: LEVALBUTEROL NEB (CONC) 1.25 MG/0.5 ML AMP INHALATION SCH ×6 (03:14→23:21)
[2016-11-21 04:13] LABS: Glucose,Whole Blood 203 mg/dL (75-99)
[2016-11-21 04:34] LABS: Basophils % (A) 0 %; CH 32.6; CHCM 33.5; Eosinophils % (A) 0 %; HCT 29.6 % (39.0-53.0); HDW 2.55; Luc # (Auto) 0.14; Luc % (Auto) 1; Lymphocytes # (A) 1.2 k/uL (1.0-4.8); Lymphocytes % (A) 7 %; MCHC 33.9 g/dL (31.0-37.0); MCV 97.5 fL (80.0-100.0); Mean Platelet Volume 7.4; Monocytes # (A) 0.7 k/uL (0-1.0); Monocytes % (A) 4 %; Neutrophils # (A) 14.4 k/uL (1.3-7.7); Neutrophils % (A) 88 %; RBC 3.03 m/uL (4.30-5.90); RDW 13.8 % (11.5-15.5); WBC 16.5 k/uL (3.8-10.6); WBC (Perox) 16.91
[2016-11-21 04:41] LABS: INR 1.1 (<1.1); Partial Thromboplastin Time 50.6 sec (22.0-30.0); Prothrombin Time 11.5 sec (9.0-12.0)
[2016-11-21 04:59] LABS: ABG Base Excess -1.6 mmol/L; ABG HCO3 22 mmol/L (21-25); ABG PCO2 36 mmHg (35-45); ABG PH 7.41 (7.35-7.45); ABG PO2 77 mmHg (83-108); ABG TCO2 23 mmol/L (19-24)
[2016-11-21 05:04] LABS: ALT 100 U/L (21-72); AST 55 U/L (17-59); Alkaline Phosphatase 60 U/L (38-126); Anion Gap 10 mmol/L; Blood Urea Nitrogen 40 mg/dL (9-20); Calcium 8.4 mg/dL (8.4-10.2); Carbon Dioxide 24 mmol/L (22-30); Chloride 110 mmol/L (98-107); Glucose 177 mg/dL (74-99); Non-African American GFR(MDRD) >60 (>60 ml/min/1.73 sqM); Sodium 144 mmol/L (137-145); Total Bilirubin 0.5 mg/dL (0.2-1.3); Total Protein 5.3 g/dL (6.3-8.2)
[2016-11-21] MEDS: PROPOFOL 500 MG in EMPTY BAG 1 BAG IV SCH ×2 (05:05→06:56)
[2016-11-21 06:09] LABS: Magnesium 2.6 mg/dL (1.6-2.3); Phosphorous 5.3 mg/dL (2.5-4.5)
[2016-11-21 06:35] LABS: Glucose,Whole Blood 119 mg/dL (75-99)
--- NOTE | 2016-11-21 07:41 | XR ---
EXAMINATION TYPE: XR chest 1V portable DATE OF EXAM: 11/21/2016 7:00 AM CLINICAL HISTORY: Difficulty breathing progress study. TECHNIQUE: Single AP portable upright view of the chest is obtained. COMPARISON: Chest x-ray from one day earlier FINDINGS: An endotracheal, orogastric tube, and left-sided subclavian venous catheter are stable in appearance. Sternal wires and mediastinal clips are redemonstrated. There are small bilateral pleural effusions redemonstrated. Increasing left lung opacity is now prese nt. Cardiomegaly is again seen. Osseous structures are intact. IMPRESSION: Cardiomegaly with small bilateral pleural effusions redemonstrated, worsening diffuse lef t lung edema and/or infiltrates is noted.
[2016-11-21] MEDS: BUDESONIDE 1 MG/2 ML NEBU INHALATION SCH ×2 (07:51→20:06)
[2016-11-21 07:59] LABS: Glucose,Whole Blood 122 mg/dL (75-99)
[2016-11-21] MEDS: AMIODARONE 200 MG TAB PO SCH ×2 (09:00→20:49)
[2016-11-21] MEDS: ATORVASTATIN 40 MG TAB PO SCH (09:01)
[2016-11-21] MEDS: CHLORHEXIDINE GLUCONATE 15 ML CUP MUCOUS MEM SCH ×2 (09:01→20:49)
[2016-11-21] MEDS: DIGOXIN 250 MCG/ML 2 ML AMP IVP SCH (09:03)
[2016-11-21] MEDS: LACTULOSE 20 GM/30 ML CUP PO SCH ×2 (09:03→20:51)
[2016-11-21] MEDS: methylPREDNISolone SOD SUCCI 40 MG/ML 1 ML VIAL IV SCH (09:03)
[2016-11-21] MEDS: PANTOPRAZOLE 40 MG/10 ML VIAL IVP SCH (09:04)
[2016-11-21] MEDS: HEPARIN SODIUM,PORCINE/D5W PMX 25,000 UNIT in DEXTROSE/WATER 1 500ML.BAG IV SCH (09:04)
[2016-11-21] MEDS: THIAMINE 100 MG TAB PO SCH ×2 (09:04→20:50)
[2016-11-21] MEDS: METOPROLOL TARTRATE 50 MG TAB PO SCH ×2 (09:04→21:00)
--- NOTE | 2016-11-21 09:34 | P.PN ---
Progress Note - Text CV Surgery Nursing POD: #11, off-pump double coronary artery bypass graft using in situ skeletonized right internal mammary artery to left anterior descending artery in situ totally skeletonized left internal mammary artery to the first obtuse marginal artery, intraoperative transesophageal echocardiogram and epi-aortic ultrasonography, intraoperative graft flow measurements using the [place] [employer] system Patient is sedated on the ventilator, no distress noted. Vital Signs: Afebrile, T-max 98.7F Vital Signs - 24 hr 11/20/16 11/20/16 11/20/16 10:00 11:00 11:35 Temperature 98.7 F Pulse Rate 98 92 93 Respiratory 20 27 H Rate O2 Sat by Pulse 95 94 L Oximetry 11/20/16 11/20/16 11/20/16 11:56 12:00 13:00 Temperature Pulse Rate 74 82 86 Respiratory 23 22 Rate O2 Sat by Pulse 92 L 92 L Oximetry 11/20/16 11/20/16 11/20/16 14:00 15:00 15:52 Temperature Pulse Rate 55 L 61 59 L Respiratory 20 20 Rate O2 Sat by Pulse 91 L 91 L Oximetry 11/20/16 11/20/16 11/20/16 16:00 16:07 17:00 Temperature 98.4 F Pulse Rate 60 60 62 Respiratory 27 H 27 H Rate O2 Sat by Pulse 93 L 93 L Oximetry 11/20/16 11/20/16 11/20/16 18:00 19:00 19:45 Temperature Pulse Rate 58 L 58 L 56 L Respiratory 22 17 Rate O2 Sat by Pulse 93 L 94 L Oximetry 11/20/16 11/20/16 11/20/16 20:00 21:00 22:00 Temperature 97.9 F Pulse Rate 57 L 54 L 52 L Respiratory 20 21 20 Rate O2 Sat by Pulse 93 L 95 91 L Oximetry 11/20/16 11/20/16 11/21/16 23:00 23:36 00:00 Temperature 98.5 F Pulse Rate 58 L 62 60 Respiratory 20 20 Rate O2 Sat by Pulse 92 L 94 L Oximetry 11/21/16 11/21/16 11/21/16 00:05 01:00 02:00 Temperature Pulse Rate 60 55 L 59 L Respiratory 20 20 Rate O2 Sat by Pulse 93 L 93 L Oximetry 11/21/16 11/21/16 11/21/16 03:00 03:18 03:42 Temperature Pulse Rate 61 55 L 63 Respiratory 26 H Rate O2 Sat by Pulse 93 L Oximetry 11/21/16 11/21/16 11/21/16 04:00 05:00 06:00 Temperature 98.2 F Pulse Rate 66 57 L 55 L Respiratory 30 H 20 20 Rate O2 Sat by Pulse 97 95 96 Oximetry 11/21/16 11/21/16 11/21/16 07:00 07:51 08:00 Temperature 98.5 F Pulse Rate 56 L 55 L 57 L Respiratory 20 20 Rate O2 Sat by Pulse 96 95 Oximetry 11/21/16 08:09 Temperature Pulse Rate 57 L Respiratory Rate O2 Sat by Pulse Oximetry ABP, PAP, CO, CI - Last 8 Hours Arterial Blood Pressure 102/51 Arterial Blood Pressure 108/55 Arterial Blood Pressure 122/56 Arterial Blood Pressure 121/56 Arterial Blood Pressure 127/59 Arterial Blood Pressure 138/56 Arterial Blood Pressure 125/50 Labs: Short CBC 11/21/16 Range/Units 04:00 WBC 16.5 H (3.8-10.6) k/uL Hgb 10.0 L (13.0-17.5) gm/dL Hct 29.6 L (39.0-53.0) % Plt Count 392 (150-450) k/uL Neutrophils # 14.4 H (1.3-7.7) k/uL BMP 11/20/16 11/21/16 15:56 04:00 Sodium 143 144 Potassium 4.2 4.0 Chloride 111 H 110 H Carbon Dioxide 24 24 BUN 42 H 40 H Creatinine 0.73 0.80 Glucose 147 H 177 H Calcium 8.4 8.4 Liver Function 11/21/16 Range/Units 04:00 Total Bilirubin 0.5 (0.2-1.3) mg/dL AST 55 (17-59) U/L ALT 100 H (21-72) U/L Alkaline Phosphatase 60 (38-126) U/L Albumin 2.6 L (3.5-5.0) g/dL IV Fluids: Propofol drip at 30 mics Insulin drip at 4 units per hour Heparin drip at 10 units per kilogram per hour Lungs: Breath sounds diminished bilateral bases O2 sat: 96% on ventilator with an FiO2 of 60% and PEEP of 5 Heart: S1S2, regular rate and rhythm bedside telemetry shows a sinus bradycardia with a rate of 56 Sternum stable, chest incision clean with silverlon dressing clean and dry. Abdomen: Soft, Positive bowel sounds present in all 4 quadrants. CBGs: 119-203 mg/dL U/O: Tay catheter to dependent drainage drained 745 mL the last 12 hours Intake & Output 11/19/16 11/20/16 11/21/16 11/22/16 06:59 06:59 06:59 06:59 Intake Total 4808.391 8028.276 3165.755 387.515 Output Total 2290 1910 2045 Balance -859.674 176.741 7519.755 387.515 Weight 99.3 kg 99.9 kg 101 kg Active Medications Hydrocodone Bitart/Acetaminophen ([place] 5-325) 2 each PO Q4HR PRN PRN Reason: Severe Pain Last Admin: 11/20/16 00:04 Dose: 2 each Hydrocodone Bitart/Acetaminophen ([place] 5-325) 1 each PO Q4HR PRN PRN Reason: Moderate Pain Amiodarone HCl (Cordarone) 200 mg PO BID [facility] Last Admin: 11/21/16 09:00 Dose: 200 mg Aspirin (Aspirin) 325 mg PO DAILY [facility] Last Admin: 11/20/16 09:13 Dose: 325 mg Atorvastatin Calcium (Lipitor) 40 mg PO DAILY [facility] Last Admin: 11/21/16 09:01 Dose: 40 mg Benzocaine (Hurricaine [place]) 1 applic MUCOUS MEM QID PRN PRN Reason: Mouth Irritation Last Admin: 11/14/16 11:36 Dose: 1 applic Benzocaine/Menthol (Cepacol Lozenge) 1 each MUCOUS MEM Q2H PRN PRN Reason: Sore Throat Bisacodyl (Dulcolax) 10 mg RECTAL DAILY PRN PRN Reason: Constipation Last Admin: 11/16/16 17:18 Dose: 10 mg Budesonide (Pulmicort) 1 mg INHALATION RT-BID [facility] Last Admin: 11/21/16 07:51 Dose: Not Given Chlorhexidine Gluconate (Peridex) 15 ml MUCOUS MEM BID [facility] Last Admin: 11/21/16 09:01 Dose: 15 ml Digoxin (Lanoxin) 250 mcg IVP DAILY [facility] Last Admin: 11/21/16 09:03 Dose: 250 mcg Heparin Sodium (Porcine) (Heparin) 0 unit IV PER PROTOCOL PRN; Protocol PRN Reason: Low PTT Last Admin: 11/20/16 16:59 Dose: 2,497 unit Insulin Human Regular 100 unit (/ Sodium Chloride) 101 mls @ 0 mls/hr IV .Q0M [facility]; Per Protocol PRN Reason: Protocol Last Titration: 11/21/16 06:00 Dose: 4 units/hr, 4.04 mls/hr Propofol 500 mg/ IV Solution 50 mls @ 0 mls/hr IV .Q0M [facility]; Titrate PRN Reason: Protocol Last Admin: 11/21/16 06:56 Dose: 30 mcg/kg/min, 17.53 mls/hr Heparin Sodium/Dextrose 25,000 (unit/ IV Solution) 500 mls @ 19.98 mls/hr IV .Q24H [place]; 10 UNITS/KG/HR PRN Reason: Protocol Last Admin: 11/21/16 09:04 Dose: 12 units/kg/hr, 23.97 mls/hr Sodium Chloride (Saline 0.9%) 1,000 mls @ 20 mls/hr IV .Q24H [facility] Last Admin: 11/20/16 11:20 Dose: 20 mls/hr Ipratropium [place] (Atrovent Nebulized) 0.5 mg INHALATION RT-Q4H [facility] Last Admin: 11/21/16 07:51 Dose: 0.5 mg Ipratropium [place] (Atrovent Nebulized) 0.5 mg INHALATION RT-Q2H PRN PRN Reason: Shortness Of Breath Or Wheezing Iron/Minerals/Multivitamins (Theragran Liquid) 15 ml PO DAILY@1200 [facility] Last Admin: 11/20/16 11:25 Dose: 15 ml Lactulose (Cephulac) 30 gm PO BID [facility] Last Admin: 11/21/16 09:03 Dose: Not Given Levalbuterol HCl (Xopenex Nebulized (Conc)) 1.25 mg INHALATION RT-Q4H [facility] Last Admin: 11/21/16 07:51 Dose: 1.25 mg Levalbuterol HCl (Xopenex Nebulized (Conc)) 1.25 mg INHALATION RT-Q2H PRN PRN Reason: Shortness Of Breath Lisinopril (Zestril) 10 mg PO BID [facility] Last Admin: 11/20/16 20:09 Dose: Not Given Lorazepam (Ativan) 1 mg IV Q2HR PRN PRN Reason: CIWA 8 or 9 Last Admin: 11/21/16 00:15 Dose: 1 mg Lorazepam (Ativan) 1 mg IV Q1HR PRN PRN Reason: CIWA 10 to 15 Last Admin: 11/15/16 03:51 Dose: 1 mg Lorazepam (Ativan) 2 mg IV Q1HR PRN PRN Reason: CIWA 16 or higher Last Admin: 11/20/16 02:21 Dose: 2 mg Magnesium Hydroxide (Milk Of Magnesia) 2,400 mg PO BID PRN PRN Reason: Constipation Methylprednisolone Sodium Succinate (Solu-Medrol) 40 mg IV Q12HR [facility] Last Admin: 11/21/16 09:03 Dose: 40 mg Metoclopramide HCl (Reglan) 10 mg IVP Q4H PRN PRN Reason: Nausea And Vomiting Metoprolol Tartrate (Lopressor) 50 mg PO TID [facility] Last Admin: 11/21/16 09:04 Dose: 50 mg Miscellaneous Information (Magnesium Per Protocol) 1 each MISCELLANE DAILY PRN ; Protocol PRN Reason: Per Protocol Miscellaneous Information (Phosphorus Per Protocol) 1 each MISCELLANE DAILY PRN ; Protocol PRN Reason: Per Protocol Miscellaneous Information (Potassium Per Protocol) 1 each MISCELLANE DAILY PRN ; Protocol PRN Reason: Per Protocol Morphine Sulfate (Morphine Sulfate (Inj)) 2 mg IVP Q2H PRN PRN Reason: Severe Pain Last Admin: 11/21/16 00:35 Dose: 2 mg Ondansetron HCl (Zofran) 4 mg IVP Q6HR PRN PRN Reason: Nausea And Vomiting Pantoprazole Sodium (Protonix) 40 mg IVP DAILY [facility] Last Admin: 11/21/16 09:04 Dose: 40 mg Senna/Docusate Sodium (Senokot-S) 2 each PO HS [facility] Last Admin: 11/20/16 20:07 Dose: 2 each Sodium Chloride (Saline Flush) 10 ml IV BID [facility] Last Admin: 11/21/16 09:04 Dose: Not Given Sodium Chloride (Saline Flush) 20 ml IV Q4HR PRN PRN Reason: PICC Line Sodium Chloride (Saline Flush) 10 ml IV WEEKLY [facility] Sodium Chloride (Saline Flush) 10 ml IV Q4HR PRN PRN Reason: PICC Line Thiamine HCl (Vitamin B-1) 100 mg PO BID [facility] Last Admin: 11/21/16 09:04 Dose: 100 mg Plan: Continue vent wean as tolerated per pulmonary Slow progress
[2016-11-21 09:49] LABS: Glucose,Whole Blood 136 mg/dL (75-99)
--- NOTE | 2016-11-21 09:52 | P.PN ---
Subjective Principal diagnosis: Status post CABG, respiratory failure, atrial fibrillation This 60-year-old gentleman with history of prior to coronary bypass surgery has been having difficulty with oxygenation. Patient has been on ventilator support. Patient had atrial fibrillation and flutter with a rapid ventricular response. Patient converted back to sinus rhythm, yesterday. He is maintaining sinus rhythm. He chest x-ray shows left-sided pleural effusion. Patient is sedated. It appears that patient is following commands and is fully awake. Attempts are being made to see if he can tolerate extubation. If not patient may require tracheostomy in the middle of the week. Patient may also require pleural tap. The Objective - Vital Signs Vital signs: Vital Signs Temp 98.5 F 11/21/16 08:00 Pulse 57 L 11/21/16 08:09 Resp 20 11/21/16 08:00 BP 109/73 11/20/16 08:00 Pulse Ox 95 11/21/16 08:00 Intake & Output 11/20/16 11/21/16 11/21/16 18:59 06:59 18:59 Intake Total 2010.251 1155.504 387.515 Output Total 1300 745 Balance 710.251 410.504 387.515 Weight 99.9 kg 101 kg Intake: IV 20 240 0.9 at 20 ml/hr 20 240 Intake, IV Titration 855.251 227.504 387.515 Amount Amiodarone 450 mg In 249.407 Dextrose 5% in Water 250 ml @ 1 MG/MIN 34.53 mls/ hr IV .Q7H31M [facility] Rx#: [id number] Heparin Sodium,Porcine/ 251.415 387.515 D5w Pmx 25,000 unit In Dextrose/Water 1 500ml. bag @ 10 UNITS/KG/HR 19. 98 mls/hr IV .Q24H [facility] Rx #:[id number] Insulin Regular 100 unit 42.706 63.873 In Sodium Chloride 0.9% 100 ml @ Per Protocol IV .Q0M [facility] Rx#:[id number] Lactated Ringers 1,000 ml 60 @ 20 mls/hr IV .Q24H [facility] Rx#:[id number] Propofol 150 ml As IV . 33.9 11.2 [facility] Rx#:[id number] Propofol 50 ml As IV .STK 11.2 [facility] Rx#:[id number] Propofol 500 mg In Empty 46.623 132.431 Bag 1 bag @ Titrate IV . Q0M [facility] Rx#:[id number] Sodium Chloride 0.9% 1, 160 20 000 ml @ 20 mls/hr IV . Q24H [facility] Rx#:[id number] Tube Feeding 645 688 Other 490 Output: Urine 1300 745 Other: Voiding Method Indwelling Catheter Indwelling Catheter # Bowel Movements 1 ABP, PAP, CO, CI - Last Documented Arterial Blood Pressure 102/51 Pulmonary Artery Pressure 46/23 Cardiac Output 6.8 Cardiac Index 3.3 - Exam GENERAL EXAM: Patient is intubated but off sedation and seems to be waking up HEENT: Normocephalic. NECK: No masses, no nuchal rigidity. CHEST: No chest wall deformity. LUNGS: Breath sounds at bases HEART: S1 and S2 normal with no audible mumurs or gallops. Regular rhythm, femorals equal on both sides.. ABDOMEN: No hepatosplenomegaly, normal bowel sounds, no guarding or rigidity. SKIN: No rashes CENTRAL NERVOUS SYSTEM: Sedated EXTREMITIES: No cyanosis, clubbing or edema. - Labs CBC & Chem 7: 11/21/16 04:00 11/21/16 04:00 Labs: Abnormal Lab Results - Last 24 Hours (Table) 11/20/16 11/20/16 11/20/16 Range/Units 09:40 10:12 10:16 WBC (3.8-10.6) k/uL RBC (4.30-5.90) m/uL Hgb (13.0-17.5) gm/dL Hct (39.0-53.0) % Neutrophils # (1.3-7.7) k/uL APTT 20.6 L (22.0-30.0) sec ABG pH 7.46 H (7.35-7.45) ABG pCO2 32 L (35-45) mmHg ABG pO2 (83-108) mmHg ABG O2 Saturation 98.1 H (94-97) % Chloride (98-107) mmol/L BUN (9-20) mg/dL Glucose (74-99) mg/dL POC Glucose (mg/dL) 150 H (75-99) mg/dL Phosphorus (2.5-4.5) mg/dL Magnesium (1.6-2.3) mg/dL ALT (21-72) U/L Total Protein (6.3-8.2) g/dL Albumin (3.5-5.0) g/dL 11/20/16 11/20/16 11/20/16 Range/Units 12:24 13:54 15:50 WBC (3.8-10.6) k/uL RBC (4.30-5.90) m/uL Hgb (13.0-17.5) gm/dL Hct (39.0-53.0) % Neutrophils # (1.3-7.7) k/uL APTT (22.0-30.0) sec ABG pH (7.35-7.45) ABG pCO2 (35-45) mmHg ABG pO2 (83-108) mmHg ABG O2 Saturation (94-97) % Chloride (98-107) mmol/L BUN (9-20) mg/dL Glucose (74-99) mg/dL POC Glucose (mg/dL) 129 H 148 H 145 H (75-99) mg/dL Phosphorus (2.5-4.5) mg/dL Magnesium (1.6-2.3) mg/dL ALT (21-72) U/L Total Protein (6.3-8.2) g/dL Albumin (3.5-5.0) g/dL 11/20/16 11/20/16 11/20/16 Range/Units 15:56 15:56 19:54 WBC (3.8-10.6) k/uL RBC (4.30-5.90) m/uL Hgb (13.0-17.5) gm/dL Hct (39.0-53.0) % Neutrophils # (1.3-7.7) k/uL APTT 41.4 H (22.0-30.0) sec ABG pH (7.35-7.45) ABG pCO2 (35-45) mmHg ABG pO2 (83-108) mmHg ABG O2 Saturation (94-97) % Chloride 111 H (98-107) mmol/L BUN 42 H (9-20) mg/dL Glucose 147 H (74-99) mg/dL POC Glucose (mg/dL) 136 H (75-99) mg/dL Phosphorus (2.5-4.5) mg/dL Magnesium 2.6 H (1.6-2.3) mg/dL ALT (21-72) U/L Total Protein (6.3-8.2) g/dL Albumin (3.5-5.0) g/dL 11/20/16 11/20/16 11/20/16 Range/Units 22:08 23:00 23:47 WBC (3.8-10.6) k/uL RBC (4.30-5.90) m/uL Hgb (13.0-17.5) gm/dL Hct (39.0-53.0) % Neutrophils # (1.3-7.7) k/uL APTT 60.7 H (22.0-30.0) sec ABG pH (7.35-7.45) ABG pCO2 (35-45) mmHg ABG pO2 (83-108) mmHg ABG O2 Saturation (94-97) % Chloride (98-107) mmol/L BUN (9-20) mg/dL Glucose (74-99) mg/dL POC Glucose (mg/dL) 156 H 141 H (75-99) mg/dL Phosphorus (2.5-4.5) mg/dL Magnesium (1.6-2.3) mg/dL ALT (21-72) U/L Total Protein (6.3-8.2) g/dL Albumin (3.5-5.0) g/dL 11/21/16 11/21/16 11/21/16 Range/Units 02:57 04:00 04:00 WBC 16.5 H (3.8-10.6) k/uL RBC 3.03 L (4.30-5.90) m/uL Hgb 10.0 L (13.0-17.5) gm/dL Hct 29.6 L (39.0-53.0) % Neutrophils # 14.4 H (1.3-7.7) k/uL APTT (22.0-30.0) sec ABG pH (7.35-7.45) ABG pCO2 (35-45) mmHg ABG pO2 (83-108) mmHg ABG O2 Saturation (94-97) % Chloride 110 H (98-107) mmol/L BUN 40 H (9-20) mg/dL Glucose 177 H (74-99) mg/dL POC Glucose (mg/dL) 182 H (75-99) mg/dL Phosphorus (2.5-4.5) mg/dL Magnesium (1.6-2.3) mg/dL ALT 100 H (21-72) U/L Total Protein 5.3 L (6.3-8.2) g/dL Albumin 2.6 L (3.5-5.0) g/dL 11/21/16 11/21/16 11/21/16 Range/Units 04:00 04:00 04:09 WBC (3.8-10.6) k/uL RBC (4.30-5.90) m/uL Hgb (13.0-17.5) gm/dL Hct (39.0-53.0) % Neutrophils # (1.3-7.7) k/uL APTT 50.6 H (22.0-30.0) sec ABG pH (7.35-7.45) ABG pCO2 (35-45) mmHg ABG pO2 (83-108) mmHg ABG O2 Saturation (94-97) % Chloride (98-107) mmol/L BUN (9-20) mg/dL Glucose (74-99) mg/dL POC Glucose (mg/dL) 203 H (75-99) mg/dL Phosphorus 5.3 H (2.5-4.5) mg/dL Magnesium 2.6 H (1.6-2.3) mg/dL ALT (21-72) U/L Total Protein (6.3-8.2) g/dL Albumin (3.5-5.0) g/dL 11/21/16 11/21/16 11/21/16 Range/Units 04:50 06:32 07:56 WBC (3.8-10.6) k/uL RBC (4.30-5.90) m/uL Hgb (13.0-17.5) gm/dL Hct (39.0-53.0) % Neutrophils # (1.3-7.7) k/uL APTT (22.0-30.0) sec ABG pH (7.35-7.45) ABG pCO2 (35-45) mmHg ABG pO2 77 L (83-108) mmHg ABG O2 Saturation (94-97) % Chloride (98-107) mmol/L BUN (9-20) mg/dL Glucose (74-99) mg/dL POC Glucose (mg/dL) 119 H 122 H (75-99) mg/dL Phosphorus (2.5-4.5) mg/dL Magnesium (1.6-2.3) mg/dL ALT (21-72) U/L Total Protein (6.3-8.2) g/dL Albumin (3.5-5.0) g/dL Microbiology - Last 24 Hours (Table) 11/20/16 17:44 Urine Culture - Preliminary Urine,Catheterized Assessment and Plan (1) Status post coronary artery bypass graft Status: Acute (2) Family history of heart disease Status: Acute (3) Hyperlipidemia Status: Acute (4) Hypertension Status: Acute (5) Nicotine dependence, chewing tobacco, uncomplicated Status: Acute (6) Atrial fibrillation Status: Acute Plan: We will continue his current management. Patient may need a pleural tap. Possible tracheostomy, if his mental status doesn't improve within next 48 hours
[2016-11-21] MEDS ORDERED: FUROSEMIDE 10 MG/ML 2 ML VIAL IV ONE (10:00)
[2016-11-21] MEDS: ASPIRIN 325 MG TAB PO SCH (10:36)
[2016-11-21] MEDS: ALBUMIN HUMAN 25% 50 ML in EMPTY BAG 1 BAG IVPB SCH ×2 (10:36→11:25)
[2016-11-21] MEDS: LISINOPRIL 10 MG TAB PO SCH ×2 (11:21→20:50)
[2016-11-21] MEDS: SODIUM CHLORIDE 0.9% 1,000 ML IV SCH (11:28)
[2016-11-21 11:51] LABS: Glucose,Whole Blood 127 mg/dL (75-99)
[2016-11-21] MEDS: MULTIVITAMINS, THERA LIQUID 237 ML BOTTLE PO SCH (12:35)
[2016-11-21 13:26] LABS: ABG Base Excess -0.6 mmol/L; ABG HCO3 21 mmol/L (21-25); ABG PCO2 26 mmHg (35-45); ABG PH 7.53 (7.35-7.45); ABG PO2 63 mmHg (83-108); ABG TCO2 22 mmol/L (19-24)
[2016-11-21 14:13] LABS: Glucose,Whole Blood 122 mg/dL (75-99)
[2016-11-21 15:43] LABS: ABG Base Excess -0.8 mmol/L; ABG HCO3 22 mmol/L (21-25); ABG PCO2 29 mmHg (35-45); ABG PH 7.49 (7.35-7.45); ABG PO2 101 mmHg (83-108); ABG TCO2 23 mmol/L (19-24)
[2016-11-21 16:12] LABS: Glucose,Whole Blood 127 mg/dL (75-99)
--- NOTE | 2016-11-21 16:26 | P.PN ---
Subjective Date of service 11/21/2016. Progress note being dictated for Dr. Jordan. Interval history: This is a 61-year-old gentleman status post CABG, status post bronchoscopy related to significant mucus plugging, failure to wean, DTs and multiple other medical issues. Chest x-ray reporting small bilateral pleural effusions, worsening diffuse left edema and/or infiltrates. FiO2 weaned down to 50%/+5 of PEEP. Now on pressure support, Sedation currently on hold, at bedside, patient currently tolerating, calm. Telemetry sinus rhythm. Receiving albumin followed by Lasix. Objective - Vital Signs Vital signs: Vital Signs Temp 97.9 F 11/21/16 12:00 Pulse 72 11/21/16 16:03 Resp 20 11/21/16 15:00 BP 109/73 11/20/16 08:00 Pulse Ox 93 L 11/21/16 15:00 Intake & Output 11/20/16 11/21/16 11/21/16 18:59 06:59 18:59 Intake Total 2010.251 1155.504 667.554 Output Total 1746 572 7211 Balance 710.251 410.504 -392.446 Weight 99.9 kg 101 kg 101 kg Intake: IV 20 240 160 0.9 at 20 ml/hr 20 240 60 Sodium Chloride 0.9% 1, 100 000 ml @ 20 mls/hr IV . Q24H [facility] Rx#:[id number] Intake, IV Titration 855.251 227.504 421.554 Amount Amiodarone 450 mg In 249.407 Dextrose 5% in Water 250 ml @ 1 MG/MIN 34.53 mls/ hr IV .Q7H31M [facility] Rx#: [id number] Heparin Sodium,Porcine/ 251.415 387.515 D5w Pmx 25,000 unit In Dextrose/Water 1 500ml. bag @ 10 UNITS/KG/HR 19. 98 mls/hr IV .Q24H [facility] Rx #:[id number] Insulin Regular 100 unit 42.706 63.873 In Sodium Chloride 0.9% 100 ml @ Per Protocol IV .Q0M [facility] Rx#:[id number] Lactated Ringers 1,000 ml 60 @ 20 mls/hr IV .Q24H [facility] Rx#:[id number] Propofol 150 ml As IV . 33.9 11.2 [facility] Rx#:[id number] Propofol 50 ml As IV .STK 11.2 [facility] Rx#:[id number] Propofol 500 mg In Empty 46.623 132.431 34.039 Bag 1 bag @ Titrate IV . Q0M [facility] Rx#:[id number] Sodium Chloride 0.9% 1, 160 20 000 ml @ 20 mls/hr IV . Q24H [facility] Rx#:[id number] Tube Feeding 645 688 86 Other 490 Output: Urine 6357 488 0776 Other: Voiding Method Indwelling Catheter Indwelling Catheter # Bowel Movements 1 ABP, PAP, CO, CI - Last Documented Arterial Blood Pressure 163/68 Pulmonary Artery Pressure 46/23 Cardiac Output 6.8 Cardiac Index 3.3 - Exam PHYSICAL EXAM: VITAL SIGNS: As above GENERAL: Intubated, sedation recently turned off, eyes open, alert, calm, attempting to follow commands HEENT: [Pupils equal, conjunctiva normal. Mucosa moist. Endotracheal tube present. ] NECK: [Supple, no JVD] RESPIRATORY EFFORT:[Normal] LUNGS: [Diminished throughout, fine bibasilar crackles, scattered rhonchi CARDIOVASCULAR[regular S1 and S2, occasional mild bradycardia, no murmurs rubs or gallops, mild edema] GI: [Abdomen soft, nontender, positive bowel sounds.] Microbiology 11/21/16 04:40 Sputum Sputum Culture - Preliminary 11/10/16 16:40 Lung - Right Fungal Culture - Preliminary Yeast species 11/20/16 17:44 Urine,Catheterized Urine Culture - Preliminary 11/10/16 16:40 Lung Aspirate - Right Gram Stain - Final 11/10/16 16:40 Lung Aspirate - Right Bronchial Washings Culture - Final 11/10/16 16:40 Lung - Right Acid Fast Bacilli Smear - Final 11/10/16 16:40 Lung - Right Acid Fast Bacilli Culture - Preliminary - Labs CBC & Chem 7: 11/21/16 04:00 11/21/16 04:00 Labs: Abnormal Lab Results - Last 24 Hours (Table) 11/20/16 11/20/16 11/20/16 Range/Units 15:56 15:56 19:54 WBC (3.8-10.6) k/uL RBC (4.30-5.90) m/uL Hgb (13.0-17.5) gm/dL Hct (39.0-53.0) % Neutrophils # (1.3-7.7) k/uL APTT 41.4 H (22.0-30.0) sec ABG pH (7.35-7.45) ABG pCO2 (35-45) mmHg ABG pO2 (83-108) mmHg ABG O2 Saturation (94-97) % Chloride 111 H (98-107) mmol/L BUN 42 H (9-20) mg/dL Glucose 147 H (74-99) mg/dL POC Glucose (mg/dL) 136 H (75-99) mg/dL Phosphorus (2.5-4.5) mg/dL Magnesium 2.6 H (1.6-2.3) mg/dL ALT (21-72) U/L Total Protein (6.3-8.2) g/dL Albumin (3.5-5.0) g/dL 11/20/16 11/20/16 11/20/16 Range/Units 22:08 23:00 23:47 WBC (3.8-10.6) k/uL RBC (4.30-5.90) m/uL Hgb (13.0-17.5) gm/dL Hct (39.0-53.0) % Neutrophils # (1.3-7.7) k/uL APTT 60.7 H (22.0-30.0) sec ABG pH (7.35-7.45) ABG pCO2 (35-45) mmHg ABG pO2 (83-108) mmHg ABG O2 Saturation (94-97) % Chloride (98-107) mmol/L BUN (9-20) mg/dL Glucose (74-99) mg/dL POC Glucose (mg/dL) 156 H 141 H (75-99) mg/dL Phosphorus (2.5-4.5) mg/dL Magnesium (1.6-2.3) mg/dL ALT (21-72) U/L Total Protein (6.3-8.2) g/dL Albumin (3.5-5.0) g/dL 11/21/16 11/21/16 11/21/16 Range/Units 02:57 04:00 04:00 WBC 16.5 H (3.8-10.6) k/uL RBC 3.03 L (4.30-5.90) m/uL Hgb 10.0 L (13.0-17.5) gm/dL Hct 29.6 L (39.0-53.0) % Neutrophils # 14.4 H (1.3-7.7) k/uL APTT (22.0-30.0) sec ABG pH (7.35-7.45) ABG pCO2 (35-45) mmHg ABG pO2 (83-108) mmHg ABG O2 Saturation (94-97) % Chloride 110 H (98-107) mmol/L BUN 40 H (9-20) mg/dL Glucose 177 H (74-99) mg/dL POC Glucose (mg/dL) 182 H (75-99) mg/dL Phosphorus (2.5-4.5) mg/dL Magnesium (1.6-2.3) mg/dL ALT 100 H (21-72) U/L Total Protein 5.3 L (6.3-8.2) g/dL Albumin 2.6 L (3.5-5.0) g/dL 11/21/16 11/21/16 11/21/16 Range/Units 04:00 04:00 04:09 WBC (3.8-10.6) k/uL RBC (4.30-5.90) m/uL Hgb (13.0-17.5) gm/dL Hct (39.0-53.0) % Neutrophils # (1.3-7.7) k/uL APTT 50.6 H (22.0-30.0) sec ABG pH (7.35-7.45) ABG pCO2 (35-45) mmHg ABG pO2 (83-108) mmHg ABG O2 Saturation (94-97) % Chloride (98-107) mmol/L BUN (9-20) mg/dL Glucose (74-99) mg/dL POC Glucose (mg/dL) 203 H (75-99) mg/dL Phosphorus 5.3 H (2.5-4.5) mg/dL Magnesium 2.6 H (1.6-2.3) mg/dL ALT (21-72) U/L Total Protein (6.3-8.2) g/dL Albumin (3.5-5.0) g/dL 11/21/16 11/21/16 11/21/16 Range/Units 04:50 06:32 07:56 WBC (3.8-10.6) k/uL RBC (4.30-5.90) m/uL Hgb (13.0-17.5) gm/dL Hct (39.0-53.0) % Neutrophils # (1.3-7.7) k/uL APTT (22.0-30.0) sec ABG pH (7.35-7.45) ABG pCO2 (35-45) mmHg ABG pO2 77 L (83-108) mmHg ABG O2 Saturation (94-97) % Chloride (98-107) mmol/L BUN (9-20) mg/dL Glucose (74-99) mg/dL POC Glucose (mg/dL) 119 H 122 H (75-99) mg/dL Phosphorus (2.5-4.5) mg/dL Magnesium (1.6-2.3) mg/dL ALT (21-72) U/L Total Protein (6.3-8.2) g/dL Albumin (3.5-5.0) g/dL 11/21/16 11/21/16 11/21/16 Range/Units 09:48 11:49 12:19 WBC (3.8-10.6) k/uL RBC (4.30-5.90) m/uL Hgb (13.0-17.5) gm/dL Hct (39.0-53.0) % Neutrophils # (1.3-7.7) k/uL APTT (22.0-30.0) sec ABG pH 7.53 H (7.35-7.45) ABG pCO2 26 L (35-45) mmHg ABG pO2 63 L (83-108) mmHg ABG O2 Saturation (94-97) % Chloride (98-107) mmol/L BUN (9-20) mg/dL Glucose (74-99) mg/dL POC Glucose (mg/dL) 136 H 127 H (75-99) mg/dL Phosphorus (2.5-4.5) mg/dL Magnesium (1.6-2.3) mg/dL ALT (21-72) U/L Total Protein (6.3-8.2) g/dL Albumin (3.5-5.0) g/dL 11/21/16 11/21/16 Range/Units 14:12 15:35 WBC (3.8-10.6) k/uL RBC (4.30-5.90) m/uL Hgb (13.0-17.5) gm/dL Hct (39.0-53.0) % Neutrophils # (1.3-7.7) k/uL APTT (22.0-30.0) sec ABG pH 7.49 H (7.35-7.45) ABG pCO2 29 L (35-45) mmHg ABG pO2 (83-108) mmHg ABG O2 Saturation 98.0 H (94-97) % Chloride (98-107) mmol/L BUN (9-20) mg/dL Glucose (74-99) mg/dL POC Glucose (mg/dL) 122 H (75-99) mg/dL Phosphorus (2.5-4.5) mg/dL Magnesium (1.6-2.3) mg/dL ALT (21-72) U/L Total Protein (6.3-8.2) g/dL Albumin (3.5-5.0) g/dL Microbiology - Last 24 Hours (Table) 11/21/16 04:40 Sputum Culture - Preliminary Sputum 11/10/16 16:40 Fungal Culture - Preliminary Lung - Right Yeast species 11/20/16 17:44 Urine Culture - Preliminary Urine,Catheterized Assessment and Plan Plan: 1. CAD, [Status post CABG]. 2. [Acute hypoxic respiratory failure secondary to the above]. 3. [Acute Exacerbation COPD]. 4. DTs, on CIWA protocol]. 5. Right upper and lower lobe collapse secondary to mucus plugging status post bronchoscopy]. 6. [Hypertension]. 7. [Ongoing Nicotine dependence, chewing tobacco 8. Bibasilar atelectasis 9. Left pleural effusion 10. A. fib with RVR Plan: Continue on current medication regime , amiodarone, IV steroids, nebulized bronchodilators , insulin drip monitoring and symptomatic treatment. Sedation currently off, potential vent weaning as per pulmonary, otherwise tracheostomy and PEG tube being discussed. Maintain CIWA protocol. GI and DVT prophylaxis in place. Follow cultures closely, afebrile, elevated WBC, though patient on steroids. Further recommendations to follow. The impression and plan of care has been dictated as directed. : I performed a H&P examination of this patient and discussed the same with the dictator. I agree with the dictator's note. Any additional findings/opinions/ etc. will be noted.
--- NOTE | 2016-11-21 17:32 | P.PN ---
Subjective 61-year-old male patient with status post carotid bypass surgery and the patient is postop day #11. The patient has failed to wean off the mechanical ventilator. Immediately postop the patient had pulmonate complications including mucous plugs and atelectasis of the left lung. He required bronchoscopy and therapeutic airway suctioning and all of the respiratory cultures came back negative. This morning, the patient was on a volume cycled assist-control mode of ventilation at the rate of 20, tidal volume 450, FiO2 of 40% and a PEEP of 5. I reviewed the blood gases and I reviewed also the chest x -ray. I noted that the patient was unable to tolerate assist-control mode. Attempts to wean him off the sedation Emily as the patient was becoming restless and a successful the mechanical ventilator. Based on this, I switched this patient to a pressure support mode of ventilation and I was able to completely wean him off sedation. He was wide awake all he was hardly able to wiggle his toes or move his fingers and he was unable to raise his had or arms against gravity. He was having copious amount of rest or secretions and he was requiring frequent suctioning. At a later stage, switch this patient to a pressure control mode of ventilation with a PEEP of 7 and a pressure control of 20 and his FiO2 was At 60%. He remains hemodynamically stable. He is producing adequate amount of urine output. No pressors at this point. No fever. No chills. Chest tubes have been all removed. He is tolerating tube feeds. Atelectatic discussion with the cardiothoracic surgeon and will plan to proceed with a PEG and trach if the patient ultimately failed weaning. 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 Objective - Vital Signs Vital signs: Vital Signs Temp 97.9 F 11/21/16 12:00 Pulse 73 11/21/16 16:23 Resp 20 11/21/16 15:00 BP 109/73 11/20/16 08:00 Pulse Ox 93 L 11/21/16 16:00 Intake & Output 11/20/16 11/21/16 11/21/16 18:59 06:59 18:59 Intake Total 2009.251 1155.504 667.554 Output Total 5976 229 7891 Balance 710.251 410.504 -392.446 Weight 99.9 kg 101 kg 101 kg Intake: IV 20 240 160 0.9 at 20 ml/hr 20 240 60 Sodium Chloride 0.9% 1, 100 000 ml @ 20 mls/hr IV . Q24H [facility] Rx#:[id number] Intake, IV Titration 855.251 227.504 421.554 Amount Amiodarone 450 mg In 249.407 Dextrose 5% in Water 250 ml @ 1 MG/MIN 34.53 mls/ hr IV .Q7H31M [facility] Rx#: [id number] Heparin Sodium,Porcine/ 251.415 387.515 D5w Pmx 25,000 unit In Dextrose/Water 1 500ml. bag @ 10 UNITS/KG/HR 19. 98 mls/hr IV .Q24H [facility] Rx #:[id number] Insulin Regular 100 unit 42.706 63.873 In Sodium Chloride 0.9% 100 ml @ Per Protocol IV .Q0M ON LICENSE OF [facility] Rx#:[id number] Lactated Ringers 1,000 ml 60 @ 20 mls/hr IV .Q24H ON LICENSE OF [facility] Rx#:[id number] Propofol 150 ml As IV . 33.9 11.2 [facility] Rx#:[id number] Propofol 50 ml As IV .STK 11.2 [facility] Rx#:[id number] Propofol 500 mg In Empty 46.623 132.431 34.039 Bag 1 bag @ Titrate IV . Q0M ON LICENSE OF [facility] Rx#:[id number] Sodium Chloride 0.9% 1, 160 20 000 ml @ 20 mls/hr IV . Q24H ON LICENSE OF [facility] Rx#:[id number] Tube Feeding 645 688 86 Other 490 Output: Urine 4293 728 6107 Other: Voiding Method Indwelling Catheter Indwelling Catheter Indwelling Catheter # Bowel Movements 1 ABP, PAP, CO, CI - Last Documented Arterial Blood Pressure 163/68 Pulmonary Artery Pressure 46/23 Cardiac Output 6.8 Cardiac Index 3.3 - Exam Head exam was generally normal. There was no scleral icterus or corneal arcus. Mucous membranes were moist.Neck was supple and without jugular venous distension, thyromegaly, or carotid bruits. Carotids were easily palpable bilaterally. There was no adenopathy. Lung sounds are diminished in lung bases especially in the left lung base. No wheezes overall currently crackles. Sounds are irregular, normal S1-S2, sternal stable clean and intact. No chest tubes are in place.Abdominal exam revealed normal bowel sounds. The abdomen was soft, non-tender, and without masses, organomegaly, or appreciable enlargement of the abdominal aorta.Examination of the extremities revealed easily palpable radial, femoral and pedal pulses. There was no cyanosis, clubbing or edema. Neurologically the patient is awake and he can follow some simple commands. Nevertheless is very hard for him to move his extremities against gravity. He has a positive cough and gag. Unable to raise his head of the bed. Reflexes are diminished in all extremities symmetrically. - Labs CBC & Chem 7: 11/21/16 04:00 11/21/16 04:00 Labs: Abnormal Lab Results - Last 24 Hours (Table) 11/20/16 11/20/16 11/20/16 Range/Units 19:54 22:08 23:00 WBC (3.8-10.6) k/uL RBC (4.30-5.90) m/uL Hgb (13.0-17.5) gm/dL Hct (39.0-53.0) % Neutrophils # (1.3-7.7) k/uL APTT 60.7 H (22.0-30.0) sec ABG pH (7.35-7.45) ABG pCO2 (35-45) mmHg ABG pO2 (83-108) mmHg ABG O2 Saturation (94-97) % Chloride (98-107) mmol/L BUN (9-20) mg/dL Glucose (74-99) mg/dL POC Glucose (mg/dL) 136 H 156 H (75-99) mg/dL Phosphorus (2.5-4.5) mg/dL Magnesium (1.6-2.3) mg/dL ALT (21-72) U/L Total Protein (6.3-8.2) g/dL Albumin (3.5-5.0) g/dL 11/20/16 11/21/16 11/21/16 Range/Units 23:47 02:57 04:00 WBC (3.8-10.6) k/uL RBC (4.30-5.90) m/uL Hgb (13.0-17.5) gm/dL Hct (39.0-53.0) % Neutrophils # (1.3-7.7) k/uL APTT (22.0-30.0) sec ABG pH (7.35-7.45) ABG pCO2 (35-45) mmHg ABG pO2 (83-108) mmHg ABG O2 Saturation (94-97) % Chloride 110 H (98-107) mmol/L BUN 40 H (9-20) mg/dL Glucose 177 H (74-99) mg/dL POC Glucose (mg/dL) 141 H 182 H (75-99) mg/dL Phosphorus (2.5-4.5) mg/dL Magnesium (1.6-2.3) mg/dL ALT 100 H (21-72) U/L Total Protein 5.3 L (6.3-8.2) g/dL Albumin 2.6 L (3.5-5.0) g/dL 11/21/16 11/21/16 11/21/16 Range/Units 04:00 04:00 04:00 WBC 16.5 H (3.8-10.6) k/uL RBC 3.03 L (4.30-5.90) m/uL Hgb 10.0 L (13.0-17.5) gm/dL Hct 29.6 L (39.0-53.0) % Neutrophils # 14.4 H (1.3-7.7) k/uL APTT 50.6 H (22.0-30.0) sec ABG pH (7.35-7.45) ABG pCO2 (35-45) mmHg ABG pO2 (83-108) mmHg ABG O2 Saturation (94-97) % Chloride (98-107) mmol/L BUN (9-20) mg/dL Glucose (74-99) mg/dL POC Glucose (mg/dL) (75-99) mg/dL Phosphorus 5.3 H (2.5-4.5) mg/dL Magnesium 2.6 H (1.6-2.3) mg/dL ALT (21-72) U/L Total Protein (6.3-8.2) g/dL Albumin (3.5-5.0) g/dL 11/21/16 11/21/16 11/21/16 Range/Units 04:09 04:50 06:32 WBC (3.8-10.6) k/uL RBC (4.30-5.90) m/uL Hgb (13.0-17.5) gm/dL Hct (39.0-53.0) % Neutrophils # (1.3-7.7) k/uL APTT (22.0-30.0) sec ABG pH (7.35-7.45) ABG pCO2 (35-45) mmHg ABG pO2 77 L (83-108) mmHg ABG O2 Saturation (94-97) % Chloride (98-107) mmol/L BUN (9-20) mg/dL Glucose (74-99) mg/dL POC Glucose (mg/dL) 203 H 119 H (75-99) mg/dL Phosphorus (2.5-4.5) mg/dL Magnesium (1.6-2.3) mg/dL ALT (21-72) U/L Total Protein (6.3-8.2) g/dL Albumin (3.5-5.0) g/dL 11/21/16 11/21/16 11/21/16 Range/Units 07:56 09:48 11:49 WBC (3.8-10.6) k/uL RBC (4.30-5.90) m/uL Hgb (13.0-17.5) gm/dL Hct (39.0-53.0) % Neutrophils # (1.3-7.7) k/uL APTT (22.0-30.0) sec ABG pH (7.35-7.45) ABG pCO2 (35-45) mmHg ABG pO2 (83-108) mmHg ABG O2 Saturation (94-97) % Chloride (98-107) mmol/L BUN (9-20) mg/dL Glucose (74-99) mg/dL POC Glucose (mg/dL) 122 H 136 H 127 H (75-99) mg/dL Phosphorus (2.5-4.5) mg/dL Magnesium (1.6-2.3) mg/dL ALT (21-72) U/L Total Protein (6.3-8.2) g/dL Albumin (3.5-5.0) g/dL 11/21/16 11/21/16 11/21/16 Range/Units 12:19 14:12 15:35 WBC (3.8-10.6) k/uL RBC (4.30-5.90) m/uL Hgb (13.0-17.5) gm/dL Hct (39.0-53.0) % Neutrophils # (1.3-7.7) k/uL APTT (22.0-30.0) sec ABG pH 7.53 H 7.49 H (7.35-7.45) ABG pCO2 26 L 29 L (35-45) mmHg ABG pO2 63 L (83-108) mmHg ABG O2 Saturation 98.0 H (94-97) % Chloride (98-107) mmol/L BUN (9-20) mg/dL Glucose (74-99) mg/dL POC Glucose (mg/dL) 122 H (75-99) mg/dL Phosphorus (2.5-4.5) mg/dL Magnesium (1.6-2.3) mg/dL ALT (21-72) U/L Total Protein (6.3-8.2) g/dL Albumin (3.5-5.0) g/dL 11/21/16 Range/Units 16:10 WBC (3.8-10.6) k/uL RBC (4.30-5.90) m/uL Hgb (13.0-17.5) gm/dL Hct (39.0-53.0) % Neutrophils # (1.3-7.7) k/uL APTT (22.0-30.0) sec ABG pH (7.35-7.45) ABG pCO2 (35-45) mmHg ABG pO2 (83-108) mmHg ABG O2 Saturation (94-97) % Chloride (98-107) mmol/L BUN (9-20) mg/dL Glucose (74-99) mg/dL POC Glucose (mg/dL) 127 H (75-99) mg/dL Phosphorus (2.5-4.5) mg/dL Magnesium (1.6-2.3) mg/dL ALT (21-72) U/L Total Protein (6.3-8.2) g/dL Albumin (3.5-5.0) g/dL Microbiology - Last 24 Hours (Table) 11/21/16 04:40 Sputum Culture - Preliminary Sputum 11/10/16 16:40 Fungal Culture - Preliminary Lung - Right Yeast species 11/20/16 17:44 Urine Culture - Preliminary Urine,Catheterized Assessment and Plan Plan: Assessment 1 Coronary artery disease status post carotid bypass surgery and the patient is postop day #11 2 prolonged postoperative ventilator-dependent history failure, multifactorial. 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 Plan My plan is to keep this patient off sedation for the longest period of time and assess his motor function and since the patient was handed any further weaning without having to resort to tracheostomy tube insertion and PEG tube insertion. If this measures failed, alternative weaning process needs to be considered including a PEG and trach. I discussed this with Dr. Dave Lamar from cardiothoracic surgery. For now, we'll give the patient off sedation pedal check periodic weaning parameters. We'll try to keep him on a pressure control mode of ventilation with seems to be much more comfortable for this patient as the patient has become much more synchronous to this mode of ventilation. Will do daily chest x-rays. We'll avoid Diprivan. We'll diuresis patient gently with IV Lasix 20 mg every 12 hours. We'll continue to follow make further recommendations based on his progress. Is a critically care evaluation was done in 40 minutes.
[2016-11-21 18:23] LABS: Glucose,Whole Blood 123 mg/dL (75-99)
[2016-11-21 19:49] LABS: Glucose,Whole Blood 125 mg/dL (75-99)
[2016-11-21] MEDS: SENNOSIDES-DOCUSATE SODIUM 1 EACH TAB PO SCH (20:51)
--- NOTE | 2016-11-21 21:38 | PN ---
DATE OF SERVICE: 11/21/2016 This 61 -year-old gentleman was admitted with coronary artery disease, coronary artery bypass grafting is still on mechanical ventilation. The patient is on pressor support and ventilation. Seen and evaluated the patient along with nurse practitioner. Please refer to the nurse practitioner notes and impression documented as a scribe for further information. Further recommendations to follow.
[2016-11-21] MEDS: INSULIN REGULAR 100 UNIT in SODIUM CHLORIDE 0.9% 100 ML IV SCH (21:50)
[2016-11-21 22:19] LABS: Glucose,Whole Blood 110 mg/dL (75-99)
[2016-11-22 00:26] LABS: Glucose,Whole Blood 130 mg/dL (75-99)
[2016-11-22] MEDS: LORazepam 2 MG/ML SYRINGE IV PRN (00:57)
[2016-11-22 02:40] LABS: Glucose,Whole Blood 84 mg/dL (75-99)
[2016-11-22] MEDS: LEVALBUTEROL NEB (CONC) 1.25 MG/0.5 ML AMP INHALATION SCH ×6 (03:11→23:28)
[2016-11-22] MEDS: IPRATROPIUM 0.5 MG/2.5 ML NEBU INHALATION SCH ×6 (03:11→23:28)
[2016-11-22 03:37] LABS: Glucose,Whole Blood 91 mg/dL (75-99)
[2016-11-22 04:45] LABS: Basophils # (A) 0.1 k/uL (0-0.2); Basophils % (A) 0 %; CH 32.9; CHCM 33.8; Eosinophils # (A) 0.1 k/uL (0-0.7); Eosinophils % (A) 0 %; HCT 28.2 % (39.0-53.0); HDW 2.56; HGB 9.5 gm/dL (13.0-17.5); Luc # (Auto) 0.24; Luc % (Auto) 2; Lymphocytes % (A) 19 %; MCH 33.1 pg (25.0-35.0); MCHC 33.9 g/dL (31.0-37.0); MCV 97.7 fL (80.0-100.0); Mean Platelet Volume 7.9; Monocytes # (A) 0.9 k/uL (0-1.0); Monocytes % (A) 6 %; Neutrophils # (A) 11.8 k/uL (1.3-7.7); Neutrophils % (A) 74 %; RBC 2.88 m/uL (4.30-5.90); RDW 13.9 % (11.5-15.5); WBC (Perox) 15.95
[2016-11-22 04:49] LABS: Glucose,Whole Blood 110 mg/dL (75-99)
[2016-11-22 04:56] LABS: INR 1.2 (<1.1); Partial Thromboplastin Time 55.4 sec (22.0-30.0)
[2016-11-22 05:27] LABS: ABG Base Excess -0.6 mmol/L; ABG HCO3 22 mmol/L (21-25); ABG PCO2 27 mmHg (35-45); ABG PH 7.52 (7.35-7.45); ABG PO2 88 mmHg (83-108); ABG TCO2 23 mmol/L (19-24)
[2016-11-22 05:30] LABS: ALT 84 U/L (21-72); AST 37 U/L (17-59); Alkaline Phosphatase 53 U/L (38-126); Anion Gap 9 mmol/L; Blood Urea Nitrogen 34 mg/dL (9-20); Calcium 8.3 mg/dL (8.4-10.2); Carbon Dioxide 23 mmol/L (22-30); Chloride 109 mmol/L (98-107); Digoxin 0.7 ng/mL; Glucose 107 mg/dL (74-99); Magnesium 2.3 mg/dL (1.6-2.3); Non-African American GFR(MDRD) >60 (>60 ml/min/1.73 sqM); Phosphorous 3.6 mg/dL (2.5-4.5); Potassium 3.5 mmol/L (3.5-5.1); Sodium 141 mmol/L (137-145); Total Bilirubin 0.9 mg/dL (0.2-1.3); Total Protein 5.4 g/dL (6.3-8.2)
[2016-11-22] MEDS: BUDESONIDE 1 MG/2 ML NEBU INHALATION SCH ×2 (07:14→19:09)
[2016-11-22 07:32] LABS: Glucose,Whole Blood 110 mg/dL (75-99)
--- NOTE | 2016-11-22 07:41 | XR ---
EXAMINATION TYPE: XR chest 1V portable DATE OF EXAM: 11/22/2016 6:55 AM HISTORY: Post Op CABG COMPARISON: NONE TECHNIQUE: Single view of the chest is submitted. FINDINGS: Endotracheal tube, NG tube, SG catheter are appropriately placed. Post operative changes of CABG. No sizeable pneumothorax. Moderate pleural parenchymal opacity throughout the left lung and right lung base. The heart is enlarged. IMPRESSION: 1. Post operative changes of CABG.
[2016-11-22 08:28] LABS: Glucose,Whole Blood 101 mg/dL (75-99)
--- NOTE | 2016-11-22 08:34 | P.PN ---
Subjective 61-year-old male patient with status post carotid bypass surgery and the patient is postop day #11. The patient has failed to wean off the mechanical ventilator. Immediately postop the patient had pulmonate complications including mucous plugs and atelectasis of the left lung. He required bronchoscopy and therapeutic airway suctioning and all of the respiratory cultures came back negative. This morning, the patient was on a volume cycled assist-control mode of ventilation at the rate of 20, tidal volume 450, FiO2 of 40% and a PEEP of 5. I reviewed the blood gases and I reviewed also the chest x -ray. I noted that the patient was unable to tolerate assist-control mode. Attempts to wean him off the sedation Emily as the patient was becoming restless and a successful the mechanical ventilator. Based on this, I switched this patient to a pressure support mode of ventilation and I was able to completely wean him off sedation. He was wide awake all he was hardly able to wiggle his toes or move his fingers and he was unable to raise his had or arms against gravity. He was having copious amount of rest or secretions and he was requiring frequent suctioning. At a later stage, switch this patient to a pressure control mode of ventilation with a PEEP of 7 and a pressure control of 20 and his FiO2 was At 60%. He remains hemodynamically stable. He is producing adequate amount of urine output. No pressors at this point. No fever. No chills. Chest tubes have been all removed. He is tolerating tube feeds. Atelectatic discussion with the cardiothoracic surgeon and will plan to proceed with a PEG and trach if the patient ultimately failed weaning. 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 On 11/22/2016 the patient remains intubated on a mechanical ventilator. I was able to the sedation completely on the patient. He is awake at this point and he had been awake throughout the night. He is following simple commands. Motor functions are nearly absent. The patient is extremely weak. He can wiggle his toes and occasionally bend his knees. Otherwise he cannot raise his arms and legs against gravity. He has a cough reflex. He can blink his eyes and raises eyebrows. Reflexes are significantly diminished in the upper and lower extremities bilaterally. Is on a pressure control mode of ventilation at the rate of 18, PC 18, PEEP of 7 and FiO2 of 50%. Still having significant respiratory secretions through the orotracheal tube. The chest x-ray from today shows moderate parenchymal opacity within the left lung base and the right lung base. There is some atelectatic changes in the lung bases more so on the left. The patient has also postop changes related to coronary artery bypass surgery. No fever. No chills. Hemodynamically stable. Producing adequate amount of urine output and the patient was diuresis with a combination of albumin and Lasix. He is on tube feeds. Objective - Vital Signs Vital signs: Vital Signs Temp 98.9 F 11/22/16 04:00 Pulse 69 11/22/16 07:33 Resp 20 11/22/16 07:00 BP 109/73 11/20/16 08:00 Pulse Ox 92 L 11/22/16 07:00 Intake & Output 11/21/16 11/22/16 11/22/16 18:59 06:59 18:59 Intake Total 739.635 292.753 20 Output Total 1560 910 60 Balance -820.365 -617.247 -40 Weight 101 kg 100.5 kg Intake: IV 220 240 20 0.9 at 20 ml/hr 60 Sodium Chloride 0.9% 1, 160 240 20 000 ml @ 20 mls/hr IV . Q24H [facility] Rx#:[id number] Intake, IV Titration 433.635 9.753 Amount Heparin Sodium,Porcine/ 387.515 D5w Pmx 25,000 unit In Dextrose/Water 1 500ml. bag @ 10 UNITS/KG/HR 19. 98 mls/hr IV .Q24H [facility] Rx #:[id number] Insulin Regular 100 unit 12.081 9.753 In Sodium Chloride 0.9% 100 ml @ Per Protocol IV .Q0M [facility] Rx#:[id number] Propofol 500 mg In Empty 34.039 Bag 1 bag @ Titrate IV . Q0M [facility] Rx#:[id number] Tube Feeding 86 43 Output: Urine 1560 910 60 Other: Voiding Method Indwelling Catheter Indwelling Catheter ABP, PAP, CO, CI - Last Documented Arterial Blood Pressure 112/48 Pulmonary Artery Pressure 46/23 Cardiac Output 6.8 Cardiac Index 3.3 - Exam Head exam was generally normal. There was no scleral icterus or corneal arcus. Mucous membranes were moist.Neck was supple and without jugular venous distension, thyromegaly, or carotid bruits. Carotids were easily palpable bilaterally. There was no adenopathy. Lung sounds are diminished in lung bases especially in the left lung base. No wheezes overall currently crackles. Sounds are irregular, normal S1-S2, sternal stable clean and intact. No chest tubes are in place.Abdominal exam revealed normal bowel sounds. The abdomen was soft, non-tender, and without masses, organomegaly, or appreciable enlargement of the abdominal aorta.Examination of the extremities revealed easily palpable radial, femoral and pedal pulses. There was no cyanosis, clubbing or edema. Neurologically the patient is awake and he can follow some simple commands. Nevertheless is very hard for him to move his extremities against gravity. He has a positive cough and gag. Unable to raise his head of the bed. Reflexes are diminished , nearly absent, in all extremities symmetrically. - Labs CBC & Chem 7: 11/22/16 04:30 11/22/16 04:30 Labs: Abnormal Lab Results - Last 24 Hours (Table) 11/21/16 11/21/16 11/21/16 Range/Units 09:48 11:49 12:19 WBC (3.8-10.6) k/uL RBC (4.30-5.90) m/uL Hgb (13.0-17.5) gm/dL Hct (39.0-53.0) % Neutrophils # (1.3-7.7) k/uL APTT (22.0-30.0) sec ABG pH 7.53 H (7.35-7.45) ABG pCO2 26 L (35-45) mmHg ABG pO2 63 L (83-108) mmHg ABG O2 Saturation (94-97) % Chloride (98-107) mmol/L BUN (9-20) mg/dL Glucose (74-99) mg/dL POC Glucose (mg/dL) 136 H 127 H (75-99) mg/dL Calcium (8.4-10.2) mg/dL ALT (21-72) U/L Total Protein (6.3-8.2) g/dL Albumin (3.5-5.0) g/dL 11/21/16 11/21/16 11/21/16 Range/Units 14:12 15:35 16:10 WBC (3.8-10.6) k/uL RBC (4.30-5.90) m/uL Hgb (13.0-17.5) gm/dL Hct (39.0-53.0) % Neutrophils # (1.3-7.7) k/uL APTT (22.0-30.0) sec ABG pH 7.49 H (7.35-7.45) ABG pCO2 29 L (35-45) mmHg ABG pO2 (83-108) mmHg ABG O2 Saturation 98.0 H (94-97) % Chloride (98-107) mmol/L BUN (9-20) mg/dL Glucose (74-99) mg/dL POC Glucose (mg/dL) 122 H 127 H (75-99) mg/dL Calcium (8.4-10.2) mg/dL ALT (21-72) U/L Total Protein (6.3-8.2) g/dL Albumin (3.5-5.0) g/dL 11/21/16 11/21/16 11/21/16 Range/Units 18:22 19:47 22:17 WBC (3.8-10.6) k/uL RBC (4.30-5.90) m/uL Hgb (13.0-17.5) gm/dL Hct (39.0-53.0) % Neutrophils # (1.3-7.7) k/uL APTT (22.0-30.0) sec ABG pH (7.35-7.45) ABG pCO2 (35-45) mmHg ABG pO2 (83-108) mmHg ABG O2 Saturation (94-97) % Chloride (98-107) mmol/L BUN (9-20) mg/dL Glucose (74-99) mg/dL POC Glucose (mg/dL) 123 H 125 H 110 H (75-99) mg/dL Calcium (8.4-10.2) mg/dL ALT (21-72) U/L Total Protein (6.3-8.2) g/dL Albumin (3.5-5.0) g/dL 11/22/16 11/22/16 11/22/16 Range/Units 00:05 04:30 04:30 WBC 16.0 H (3.8-10.6) k/uL RBC 2.88 L (4.30-5.90) m/uL Hgb 9.5 L (13.0-17.5) gm/dL Hct 28.2 L (39.0-53.0) % Neutrophils # 11.8 H (1.3-7.7) k/uL APTT (22.0-30.0) sec ABG pH (7.35-7.45) ABG pCO2 (35-45) mmHg ABG pO2 (83-108) mmHg ABG O2 Saturation (94-97) % Chloride 109 H (98-107) mmol/L BUN 34 H (9-20) mg/dL Glucose 107 H (74-99) mg/dL POC Glucose (mg/dL) 130 H (75-99) mg/dL Calcium 8.3 L (8.4-10.2) mg/dL ALT 84 H (21-72) U/L Total Protein 5.4 L (6.3-8.2) g/dL Albumin 2.7 L (3.5-5.0) g/dL 11/22/16 11/22/16 11/22/16 Range/Units 04:30 04:30 05:01 WBC (3.8-10.6) k/uL RBC (4.30-5.90) m/uL Hgb (13.0-17.5) gm/dL Hct (39.0-53.0) % Neutrophils # (1.3-7.7) k/uL APTT 55.4 H (22.0-30.0) sec ABG pH 7.52 H (7.35-7.45) ABG pCO2 27 L (35-45) mmHg ABG pO2 (83-108) mmHg ABG O2 Saturation 98.0 H (94-97) % Chloride (98-107) mmol/L BUN (9-20) mg/dL Glucose (74-99) mg/dL POC Glucose (mg/dL) 110 H (75-99) mg/dL Calcium (8.4-10.2) mg/dL ALT (21-72) U/L Total Protein (6.3-8.2) g/dL Albumin (3.5-5.0) g/dL 11/22/16 11/22/16 Range/Units 07:13 08:08 WBC (3.8-10.6) k/uL RBC (4.30-5.90) m/uL Hgb (13.0-17.5) gm/dL Hct (39.0-53.0) % Neutrophils # (1.3-7.7) k/uL APTT (22.0-30.0) sec ABG pH (7.35-7.45) ABG pCO2 (35-45) mmHg ABG pO2 (83-108) mmHg ABG O2 Saturation (94-97) % Chloride (98-107) mmol/L BUN (9-20) mg/dL Glucose (74-99) mg/dL POC Glucose (mg/dL) 110 H 101 H (75-99) mg/dL Calcium (8.4-10.2) mg/dL ALT (21-72) U/L Total Protein (6.3-8.2) g/dL Albumin (3.5-5.0) g/dL Microbiology - Last 24 Hours (Table) 11/21/16 02:00 Blood Culture - Preliminary Blood No Growth after 24 hours 11/21/16 04:40 Gram Stain - Preliminary Sputum Sputum Culture - Preliminary 11/20/16 17:44 Urine Culture - Preliminary Urine,Catheterized Gram Neg Bacilli 11/10/16 16:40 Fungal Culture - Preliminary Lung - Right Yeast species Assessment and Plan Plan: Assessment 1 Coronary artery disease status post carotid bypass surgery and the patient is postop day #12 2 prolonged postoperative ventilator-dependent history failure, multifactorial. The active issue for now as the significant neuromuscular weakness that has complicated the patient's recovery. 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 Plan Keep the patient off sedation. Proceed with daily physical therapy and with the range of motion. Continue the pressure control mode of ventilation. Cut on the pressure controlled down to 18 and keep the PEEP at 7 and gradually weaned off the FiO2. I've already drop the FiO2 down to 50% I intend to drop even further to 40% and his saturations allow. Chest x-ray was reviewed. Frequent suctioning. Chest PT. We'll check a set of weaning parameters although in my opinion I don't think the patient is ready for any further weaning based on his significant neuromuscular weakness. The patient has been diuresed adequately. Continue the tube feeds. Neuromuscular weakness extensive and the patient may need a prolonged time for recovery. I think it's reasonable to consider PEG and trach knowing that the patient's recovery may take prolonged period of time. I discussed this further with a cardiothoracic surgeon. We'll continue the supportive care. Continue the tube feeds. Avoid sedation if possible. Continued IV heparin for now. Continue insulin drip. We 'll continue to follow. This occurred cavers was done and 35 minutes. Time with Patient: Greater than 30
[2016-11-22] MEDS: POTASSIUM CHLORIDE ORAL LIQUID 40 MEQ/30 ML CUP NG-TUBE SCH ×2 (08:49→10:21)
[2016-11-22] MEDS: HEPARIN SODIUM,PORCINE/D5W PMX 25,000 UNIT in DEXTROSE/WATER 1 500ML.BAG IV SCH (08:50)
[2016-11-22] MEDS: AMIODARONE 200 MG TAB PO SCH ×2 (08:50→20:03)
[2016-11-22] MEDS: ASPIRIN 325 MG TAB PO SCH (08:50)
[2016-11-22] MEDS: DIGOXIN 250 MCG/ML 2 ML AMP IVP SCH (08:51)
[2016-11-22] MEDS: CHLORHEXIDINE GLUCONATE 15 ML CUP MUCOUS MEM SCH ×2 (08:51→20:03)
[2016-11-22] MEDS: ATORVASTATIN 40 MG TAB PO SCH (08:51)
[2016-11-22] MEDS: PANTOPRAZOLE 40 MG/10 ML VIAL IVP SCH (08:52)
[2016-11-22] MEDS: LACTULOSE 20 GM/30 ML CUP PO SCH ×2 (08:52→20:04)
[2016-11-22] MEDS: METOPROLOL TARTRATE 50 MG TAB PO SCH ×2 (08:52→20:04)
[2016-11-22] MEDS: THIAMINE 100 MG TAB PO SCH ×2 (08:53→20:04)
[2016-11-22 10:05] LABS: Glucose,Whole Blood 107 mg/dL (75-99)
[2016-11-22] MEDS: LISINOPRIL 10 MG TAB PO SCH ×2 (10:21→20:04)
--- NOTE | 2016-11-22 10:42 | P.PN ---
Subjective Principal diagnosis: Status post CABG, respiratory failure, atrial fibrillation and inability to extubate because of poor oxygenation This 60-year-old gentleman with history of prior to coronary bypass surgery has been having difficulty with oxygenation. Patient has been on ventilator support. Patient had atrial fibrillation and flutter with a rapid ventricular response. Patient converted back to sinus rhythm, yesterday. He is maintaining sinus rhythm. He chest x-ray shows left-sided pleural effusion. Patient is sedated. It appears that patient is following commands and is fully awake. Attempts are being made to see if he can tolerate extubation. If not patient may require tracheostomy in the middle of the week. Patient is reexamined on 22 of November. Patient is still intubated. Patient apparently has generalized weakness and unable cough or take deep breaths. Patient is being taken off the sedation and another trial of CPAP will be tried. If patient fails, may need tracheostomy. Patient went back into flutter with rapid ventricular response. His blood pressure is low. He is going to be taken off the sedation. Once her blood pressure is more stable, will give IV Lopressor to control the heart rate. He is on IV amiodarone and also digoxin. Patient is on anticoagulation in the form of heparin. Objective - Vital Signs Vital signs: Vital Signs Temp 99.0 F 11/22/16 08:00 Pulse 119 H 11/22/16 10:00 Resp 21 11/22/16 10:00 BP 109/73 11/20/16 08:00 Pulse Ox 96 11/22/16 10:00 Intake & Output 11/21/16 11/22/16 11/22/16 18:59 06:59 18:59 Intake Total 739.635 792.753 359 Output Total 1560 910 215 Balance -820.365 -117.247 144 Weight 101 kg 100.5 kg Intake: IV 220 240 80 0.9 at 20 ml/hr 60 Sodium Chloride 0.9% 1, 160 240 80 000 ml @ 20 mls/hr IV . Q24H [facility] Rx#:[id number] Intake, IV Titration 433.635 509.753 0 Amount Heparin Sodium,Porcine/ 387.515 500 D5w Pmx 25,000 unit In Dextrose/Water 1 500ml. bag @ 10 UNITS/KG/HR 19. 98 mls/hr IV .Q24H [facility] Rx #:[id number] Insulin Regular 100 unit 12.081 9.753 In Sodium Chloride 0.9% 100 ml @ Per Protocol IV .Q0M [facility] Rx#:[id number] Propofol 500 mg In Empty 34.039 0 Bag 1 bag @ Titrate IV . Q0M [facility] Rx#:[id number] Tube Feeding 86 43 129 Other 150 Output: Urine 1560 910 215 Other: Voiding Method Indwelling Catheter Indwelling Catheter ABP, PAP, CO, CI - Last Documented Arterial Blood Pressure 84/52 Pulmonary Artery Pressure 46/23 Cardiac Output 6.8 Cardiac Index 3.3 - Exam GENERAL EXAM: Patient is sleepy but arousable HEENT: Normocephalic. NECK: No masses, no nuchal rigidity. CHEST: No chest wall deformity. LUNGS: Breath sounds at bases HEART: S1 and S2 normal with no audible mumurs or gallops. Regular rhythm, femorals equal on both sides.. ABDOMEN: No hepatosplenomegaly, normal bowel sounds, no guarding or rigidity. SKIN: No rashes CENTRAL NERVOUS SYSTEM: Sedated EXTREMITIES: No cyanosis, clubbing or edema. - Labs CBC & Chem 7: 11/22/16 04:30 11/22/16 04:30 Labs: Abnormal Lab Results - Last 24 Hours (Table) 11/21/16 11/21/16 11/21/16 Range/Units 11:49 12:19 14:12 WBC (3.8-10.6) k/uL RBC (4.30-5.90) m/uL Hgb (13.0-17.5) gm/dL Hct (39.0-53.0) % Neutrophils # (1.3-7.7) k/uL APTT (22.0-30.0) sec ABG pH 7.53 H (7.35-7.45) ABG pCO2 26 L (35-45) mmHg ABG pO2 63 L (83-108) mmHg ABG O2 Saturation (94-97) % Chloride (98-107) mmol/L BUN (9-20) mg/dL Glucose (74-99) mg/dL POC Glucose (mg/dL) 127 H 122 H (75-99) mg/dL Calcium (8.4-10.2) mg/dL ALT (21-72) U/L Total Protein (6.3-8.2) g/dL Albumin (3.5-5.0) g/dL 11/21/16 11/21/16 11/21/16 Range/Units 15:35 16:10 18:22 WBC (3.8-10.6) k/uL RBC (4.30-5.90) m/uL Hgb (13.0-17.5) gm/dL Hct (39.0-53.0) % Neutrophils # (1.3-7.7) k/uL APTT (22.0-30.0) sec ABG pH 7.49 H (7.35-7.45) ABG pCO2 29 L (35-45) mmHg ABG pO2 (83-108) mmHg ABG O2 Saturation 98.0 H (94-97) % Chloride (98-107) mmol/L BUN (9-20) mg/dL Glucose (74-99) mg/dL POC Glucose (mg/dL) 127 H 123 H (75-99) mg/dL Calcium (8.4-10.2) mg/dL ALT (21-72) U/L Total Protein (6.3-8.2) g/dL Albumin (3.5-5.0) g/dL 11/21/16 11/21/16 11/22/16 Range/Units 19:47 22:17 00:05 WBC (3.8-10.6) k/uL RBC (4.30-5.90) m/uL Hgb (13.0-17.5) gm/dL Hct (39.0-53.0) % Neutrophils # (1.3-7.7) k/uL APTT (22.0-30.0) sec ABG pH (7.35-7.45) ABG pCO2 (35-45) mmHg ABG pO2 (83-108) mmHg ABG O2 Saturation (94-97) % Chloride (98-107) mmol/L BUN (9-20) mg/dL Glucose (74-99) mg/dL POC Glucose (mg/dL) 125 H 110 H 130 H (75-99) mg/dL Calcium (8.4-10.2) mg/dL ALT (21-72) U/L Total Protein (6.3-8.2) g/dL Albumin (3.5-5.0) g/dL 11/22/16 11/22/16 11/22/16 Range/Units 04:30 04:30 04:30 WBC 16.0 H (3.8-10.6) k/uL RBC 2.88 L (4.30-5.90) m/uL Hgb 9.5 L (13.0-17.5) gm/dL Hct 28.2 L (39.0-53.0) % Neutrophils # 11.8 H (1.3-7.7) k/uL APTT 55.4 H (22.0-30.0) sec ABG pH (7.35-7.45) ABG pCO2 (35-45) mmHg ABG pO2 (83-108) mmHg ABG O2 Saturation (94-97) % Chloride 109 H (98-107) mmol/L BUN 34 H (9-20) mg/dL Glucose 107 H (74-99) mg/dL POC Glucose (mg/dL) (75-99) mg/dL Calcium 8.3 L (8.4-10.2) mg/dL ALT 84 H (21-72) U/L Total Protein 5.4 L (6.3-8.2) g/dL Albumin 2.7 L (3.5-5.0) g/dL 11/22/16 11/22/16 11/22/16 Range/Units 04:30 05:01 07:13 WBC (3.8-10.6) k/uL RBC (4.30-5.90) m/uL Hgb (13.0-17.5) gm/dL Hct (39.0-53.0) % Neutrophils # (1.3-7.7) k/uL APTT (22.0-30.0) sec ABG pH 7.52 H (7.35-7.45) ABG pCO2 27 L (35-45) mmHg ABG pO2 (83-108) mmHg ABG O2 Saturation 98.0 H (94-97) % Chloride (98-107) mmol/L BUN (9-20) mg/dL Glucose (74-99) mg/dL POC Glucose (mg/dL) 110 H 110 H (75-99) mg/dL Calcium (8.4-10.2) mg/dL ALT (21-72) U/L Total Protein (6.3-8.2) g/dL Albumin (3.5-5.0) g/dL 11/22/16 11/22/16 Range/Units 08:08 10:03 WBC (3.8-10.6) k/uL RBC (4.30-5.90) m/uL Hgb (13.0-17.5) gm/dL Hct (39.0-53.0) % Neutrophils # (1.3-7.7) k/uL APTT (22.0-30.0) sec ABG pH (7.35-7.45) ABG pCO2 (35-45) mmHg ABG pO2 (83-108) mmHg ABG O2 Saturation (94-97) % Chloride (98-107) mmol/L BUN (9-20) mg/dL Glucose (74-99) mg/dL POC Glucose (mg/dL) 101 H 107 H (75-99) mg/dL Calcium (8.4-10.2) mg/dL ALT (21-72) U/L Total Protein (6.3-8.2) g/dL Albumin (3.5-5.0) g/dL Microbiology - Last 24 Hours (Table) 11/21/16 02:00 Blood Culture - Preliminary Blood No Growth after 24 hours 11/21/16 04:40 Gram Stain - Preliminary Sputum Sputum Culture - Preliminary 11/20/16 17:44 Urine Culture - Preliminary Urine,Catheterized Gram Neg Bacilli 11/10/16 16:40 Fungal Culture - Preliminary Lung - Right Yeast species Assessment and Plan (1) Status post coronary artery bypass graft Status: Acute (2) Family history of heart disease Status: Acute (3) Hyperlipidemia Status: Acute (4) Hypertension Status: Acute (5) Nicotine dependence, chewing tobacco, uncomplicated Status: Acute (6) Atrial fibrillation Status: Acute Plan: Patient is still intubated. May require tracheostomy if fails to extubate him failed within next 24 hours. Patient also went back into atrial flutter with rapid ventricular response. We will try to give IV Lopressor along with the digoxin and amiodarone. Prognosis is guarded
[2016-11-22] MEDS ORDERED: ALBUMIN HUMAN 25% 50 ML in EMPTY BAG 1 BAG IVPB ONE (10:57)
[2016-11-22] MEDS ORDERED: FUROSEMIDE 10 MG/ML 2 ML VIAL IV ONE (10:58)
[2016-11-22 11:54] LABS: Glucose,Whole Blood 124 mg/dL (75-99)
[2016-11-22] MEDS: SODIUM CHLORIDE 0.9% 1,000 ML IV SCH (11:58)
[2016-11-22] MEDS: MULTIVITAMINS, THERA LIQUID 237 ML BOTTLE PO SCH (11:58)
[2016-11-22] MEDS: PROPOFOL 500 MG in EMPTY BAG 1 BAG IV SCH ×3 (12:14→21:34)
--- NOTE | 2016-11-22 12:30 | P.PN ---
<Madhu Brush L - Last Filed: 11/22/16 11:54> Progress Note - Text CV Surgery Nursing Principal diagnosis: Coronary artery disease, status post prior stenting to his right coronary artery. Preserved left ventricular function. Hyperlipidemia. Hypertension. ETOH abuse. POD #12 total arterial non-aortic patch off-pump double coronary artery bypass grafting using in situ skeletonized right internal mammary artery to the left anterior descending artery across the anterior midline in situ totally skeletonized left internal mammary artery to the first obtuse marginal artery. Intraoperative transesophageal echocardiogram and epi-aortic scanning. Intraoperative graft flow measurements using the [employer] system Patient had postoperative mucous plugging with increasing oxygen demand requiring bronchoscopy the night of surgery. Bronchial washings negative for bacteria/viruses to date. Pt developed postoperative alcohol withdrawal requiring increased sedation and continued mechanical ventilation. Patient awake and alert,, with postoperative weakness he is unable to move his upper extremities, some finger movement noted bilaterally, he is able to wiggle his toes bilaterally. He remains intubated with mechanical ventilator support. Vital Signs: Afebrile Vital Signs - 24 hr 11/21/16 11/21/16 11/21/16 13:00 14:00 15:00 Temperature Pulse Rate 61 66 66 Respiratory 21 22 20 Rate O2 Sat by Pulse 89 L 93 L 93 L Oximetry 11/21/16 11/21/16 11/21/16 16:00 16:03 16:23 Temperature Pulse Rate 71 72 73 Respiratory 20 Rate O2 Sat by Pulse 75 L Oximetry 11/21/16 11/21/16 11/21/16 17:00 18:00 19:00 Temperature Pulse Rate 75 72 71 Respiratory 20 19 13 Rate O2 Sat by Pulse 92 L 93 L 93 L Oximetry 11/21/16 11/21/16 11/21/16 20:00 20:07 20:28 Temperature Pulse Rate 69 67 73 Respiratory 20 Rate O2 Sat by Pulse 89 L Oximetry 11/21/16 11/21/16 11/21/16 21:00 22:00 23:00 Temperature Pulse Rate 67 65 73 Respiratory 20 20 20 Rate O2 Sat by Pulse 92 L 93 L 94 L Oximetry 11/21/16 11/21/16 11/22/16 23:13 23:24 00:00 Temperature 98 F Pulse Rate 70 71 71 Respiratory 23 Rate O2 Sat by Pulse 99 Oximetry 11/22/16 11/22/16 11/22/16 01:00 02:00 03:00 Temperature Pulse Rate 70 65 59 L Respiratory 19 20 19 Rate O2 Sat by Pulse 95 94 L 95 Oximetry 11/22/16 11/22/16 11/22/16 03:02 03:13 03:26 Temperature Pulse Rate 60 59 L Respiratory 19 Rate O2 Sat by Pulse Oximetry 11/22/16 11/22/16 11/22/16 04:00 05:00 06:00 Temperature 98.9 F Pulse Rate 68 63 79 Respiratory 19 20 20 Rate O2 Sat by Pulse 95 95 93 L Oximetry 11/22/16 11/22/16 11/22/16 07:00 07:21 07:33 Temperature Pulse Rate 78 75 69 Respiratory 20 Rate O2 Sat by Pulse 92 L Oximetry 11/22/16 11/22/16 11/22/16 08:00 09:00 09:30 Temperature 99.0 F Pulse Rate 75 79 85 Respiratory 20 26 H 33 H Rate O2 Sat by Pulse 94 L 97 97 Oximetry 11/22/16 11/22/16 11/22/16 10:00 11:30 11:44 Temperature Pulse Rate 119 H 66 69 Respiratory 21 Rate O2 Sat by Pulse 96 Oximetry ABP, PAP, CO, CI - Last 8 Hours Arterial Blood Pressure 84/52 Arterial Blood Pressure 166/70 Arterial Blood Pressure 144/65 Arterial Blood Pressure 124/60 Arterial Blood Pressure 112/48 Arterial Blood Pressure 164/64 Arterial Blood Pressure 110/50 Labs: Short CBC 11/22/16 Range/Units 04:30 WBC 16.0 H (3.8-10.6) k/uL Hgb 9.5 L (13.0-17.5) gm/dL Hct 28.2 L (39.0-53.0) % Plt Count 389 (150-450) k/uL Neutrophils # 11.8 H (1.3-7.7) k/uL BMP 11/22/16 04:30 Sodium 141 Potassium 3.5 Chloride 109 H Carbon Dioxide 23 BUN 34 H Creatinine 0.70 Glucose 107 H Calcium 8.3 L Liver Function 11/22/16 Range/Units 04:30 Total Bilirubin 0.9 (0.2-1.3) mg/dL AST 37 (17-59) U/L ALT 84 H (21-72) U/L Alkaline Phosphatase 53 (38-126) U/L Albumin 2.7 L (3.5-5.0) g/dL ABG ABG pH 7.52 (7.35-7.45) H 11/22/16 05:01 ABG pCO2 27 mmHg (35-45) L 11/22/16 05:01 ABG pO2 88 mmHg (83-108) 11/22/16 05:01 ABG O2 Saturation 98.0 % (94-97) H 11/22/16 05:01 PT/INR, D-dimer PT 12.0 sec (9.0-12.0) 11/22/16 04:30 INR 1.2 (<1.1) 11/22/16 04:30 Potassium replacement was completed per protocol. IV Fluids: 0.9% normal saline at 20 mL per hour Insulin drip at 1 unit per hour Heparin drip at 12 units per kilogram per hour following protocol. Lungs: Few scattered rhonchi throughout, diminished bilateral bases. Respirations are unlabored with mechanical ventilator support. Current ventilator settings are as follows: AC 20, pressure control ventilation 18 over 0.80, FiO2 50%, peep 7. O2 sat: 97% with mechanical ventilator support, current FiO2 setting 50%. Heart: S1S2, regular rhythm and rate, negative for S3, gallop or murmur. Bedside telemetry showing normal sinus rhythm heart rate 83. Sternum stable, chest incision clean. Silver dressing was removed due to some serosanguineous drainage noted to the distal part of the dressing. Sternal incision with mild serosanguineous drainage. Knee-high CEZAR hose and sequential compression devices in place to bilateral lower x-rays. Abdomen: Soft, Positive bowel sounds present in all 4 quadrants, OG tube in place with vital high-protein to feeding infusing at 43 mL per hour which is goal. 150 mL of water flushes every 4 hours. CBGs: 91-125 mg/dL in the last 24 hours. U/O: Adequate, Tay catheter for accurate I&O. 585 mL output in the last 8 hours. 24 hr Total: Intake & Output 11/20/16 11/21/16 11/22/16 11/23/16 06:59 06:59 06:59 06:59 Intake Total 2774.276 3165.755 1532.388 374.961 Output Total 1910 2045 2470 215 Balance 786.468 1501.755 937.612 159.961 Weight 99.9 kg 101 kg 100.5 kg Active Medications Hydrocodone Bitart/Acetaminophen ([place] 5-325) 2 each PO Q4HR PRN PRN Reason: Severe Pain Last Admin: 11/20/16 00:04 Dose: 2 each Hydrocodone Bitart/Acetaminophen ([place] 5-325) 1 each PO Q4HR PRN PRN Reason: Moderate Pain Amiodarone HCl (Cordarone) 200 mg PO BID [facility] Last Admin: 11/22/16 08:50 Dose: 200 mg Aspirin (Aspirin) 325 mg PO DAILY [facility] Last Admin: 11/22/16 08:50 Dose: 325 mg Atorvastatin Calcium (Lipitor) 40 mg PO DAILY [facility] Last Admin: 11/22/16 08:51 Dose: 40 mg Benzocaine (Hurricaine [place]) 1 applic MUCOUS MEM QID PRN PRN Reason: Mouth Irritation Last Admin: 11/14/16 11:36 Dose: 1 applic Benzocaine/Menthol (Cepacol Lozenge) 1 each MUCOUS MEM Q2H PRN PRN Reason: Sore Throat Bisacodyl (Dulcolax) 10 mg RECTAL DAILY PRN PRN Reason: Constipation Last Admin: 11/16/16 17:18 Dose: 10 mg Budesonide (Pulmicort) 1 mg INHALATION RT-BID [facility] Last Admin: 11/22/16 07:14 Dose: 1 mg Chlorhexidine Gluconate (Peridex) 15 ml MUCOUS MEM BID [facility] Last Admin: 11/22/16 08:51 Dose: 15 ml Digoxin (Lanoxin) 250 mcg IVP DAILY [facility] Last Admin: 11/22/16 08:51 Dose: 250 mcg Heparin Sodium (Porcine) (Heparin) 0 unit IV PER PROTOCOL PRN; Protocol PRN Reason: Low PTT Last Admin: 11/20/16 16:59 Dose: 2,497 unit Insulin Human Regular 100 unit (/ Sodium Chloride) 101 mls @ 0 mls/hr IV .Q0M [facility]; Per Protocol PRN Reason: Protocol Last Titration: 11/22/16 02:00 Dose: 0 units/hr, 0 mls/hr Propofol 500 mg/ IV Solution 50 mls @ 0 mls/hr IV .Q0M [facility]; Titrate PRN Reason: Protocol Last Admin: 11/22/16 12:14 Dose: 20 mcg/kg/min, 11.68 mls/hr Heparin Sodium/Dextrose 25,000 (unit/ IV Solution) 500 mls @ 19.98 mls/hr IV .Q24H [facility]; 10 UNITS/KG/HR PRN Reason: Protocol Last Admin: 11/22/16 08:50 Dose: 12 units/kg/hr, 23.97 mls/hr Sodium Chloride (Saline 0.9%) 1,000 mls @ 20 mls/hr IV .Q24H [facility] Last Admin: 11/22/16 11:58 Dose: 20 mls/hr Ipratropium [place] (Atrovent Nebulized) 0.5 mg INHALATION RT-Q4H [facility] Last Admin: 11/22/16 07:14 Dose: 0.5 mg Iron/Minerals/Multivitamins (Theragran Liquid) 15 ml PO DAILY@1200 [facility] Last Admin: 11/22/16 11:58 Dose: 15 ml Lactulose (Cephulac) 30 gm PO BID [facility] Last Admin: 11/22/16 08:52 Dose: Not Given Levalbuterol HCl (Xopenex Nebulized (Conc)) 1.25 mg INHALATION RT-Q4H [facility] Last Admin: 11/22/16 07:14 Dose: 1.25 mg Lisinopril (Zestril) 10 mg PO BID [facility] Last Admin: 11/22/16 10:21 Dose: Not Given Lorazepam (Ativan) 1 mg IV Q2HR PRN PRN Reason: CIWA 8 or 9 Last Admin: 11/22/16 00:57 Dose: 1 mg Lorazepam (Ativan) 1 mg IV Q1HR PRN PRN Reason: CIWA 10 to 15 Last Admin: 11/15/16 03:51 Dose: 1 mg Lorazepam (Ativan) 2 mg IV Q1HR PRN PRN Reason: CIWA 16 or higher Last Admin: 11/20/16 02:21 Dose: 2 mg Magnesium Hydroxide (Milk Of Magnesia) 2,400 mg PO BID PRN PRN Reason: Constipation Metoclopramide HCl (Reglan) 10 mg IVP Q4H PRN PRN Reason: Nausea And Vomiting Metoprolol Tartrate (Lopressor) 50 mg PO BID [facility] Last Admin: 11/22/16 08:52 Dose: 50 mg Miscellaneous Information (Magnesium Per Protocol) 1 each MISCELLANE DAILY PRN ; Protocol PRN Reason: Per Protocol Miscellaneous Information (Phosphorus Per Protocol) 1 each MISCELLANE DAILY PRN ; Protocol PRN Reason: Per Protocol Miscellaneous Information (Potassium Per Protocol) 1 each MISCELLANE DAILY PRN ; Protocol PRN Reason: Per Protocol Morphine Sulfate (Morphine Sulfate (Inj)) 2 mg IVP Q2H PRN PRN Reason: Severe Pain Last Admin: 11/21/16 19:36 Dose: 2 mg Ondansetron HCl (Zofran) 4 mg IVP Q6HR PRN PRN Reason: Nausea And Vomiting Pantoprazole Sodium (Protonix) 40 mg IVP DAILY [facility] Last Admin: 11/22/16 08:52 Dose: 40 mg Senna/Docusate Sodium (Senokot-S) 2 each PO HS [facility] Last Admin: 11/21/16 20:51 Dose: Not Given Sodium Chloride (Saline Flush) 10 ml IV BID [facility] Last Admin: 11/22/16 08:52 Dose: Not Given Sodium Chloride (Saline Flush) 20 ml IV Q4HR PRN PRN Reason: PICC Line Sodium Chloride (Saline Flush) 10 ml IV WEEKLY [facility] Sodium Chloride (Saline Flush) 10 ml IV Q4HR PRN PRN Reason: PICC Line Thiamine HCl (Vitamin B-1) 100 mg PO BID [facility] Last Admin: 11/22/16 08:53 Dose: 100 mg Plan: 1. Continue aspirin, Lipitor, Lopressor, lisinopril, digoxin. 2. Continue amiodarone for atrial fibrillation/atrial flutter prophylaxis. Cardiology to manage. 3. Ventilator management and pulmonary management per Dr Whelan. 4. Physical therapy for range of motion exercises. 5. Insulin/diabetic management per primary care service. 6. Ativan discontinued. 7. Daily labs, chest x-rays. Albumin 25% 1 followed by Lasix 20 mg IV for hypotension. 8. GI/DVT prophylaxis. 9. Diprivan drip placed on hold to evaluate underlying mentation. 10. Heparin protocol continued for atrial fibrillation/atrial flutter. 11. Tube feedings continued as ordered.. 12. More recommendations as patient progresses. <Thaddeus Kessler - Last Filed: 11/22/16 13:04> Progress Note - Text The patient was seen and examined. Agree with the above assessment and plan. We will try to minimize his sedation as much as possible. He seems more awake today but he remains profoundly weak. He is currently on pressure control ventilation with 7 of PEEP and 50% FiO2. He also has a fair amount of secretions. I am worried that he will not tolerate extubation. He will likely need tracheostomy later this week. Otherwise he remains in atrial fibrillation with rapid ventricular response this morning. He is currently on amiodarone, Lopressor, digoxin, and intravenous heparin.
[2016-11-22 14:22] LABS: Hemoglobin A1C 6.3 % (4.2-6.1)
[2016-11-22 16:02] LABS: Glucose,Whole Blood 137 mg/dL (75-99)
[2016-11-22] MEDS: LEVOFLOXACIN 750MG-D5W PMX 750 MG in DEXTROSE/WATER 1 150ML.BAG IVPB SCH (17:43)
[2016-11-22] MEDS: INSULIN LISPRO (humaLOG) 300 UNIT/3 ML VIAL SQ SCH ×2 (17:43→20:04)
[2016-11-22 18:07] LABS: Glucose,Whole Blood 150 mg/dL (75-99)
[2016-11-22 20:00] LABS: Glucose,Whole Blood 135 mg/dL (75-99)
[2016-11-22] MEDS: SENNOSIDES-DOCUSATE SODIUM 1 EACH TAB PO SCH (20:03)
--- NOTE | 2016-11-22 21:18 | PN ---
DATE OF SERVICE: 11/22/2016 This 61-year-old gentleman was admitted with CAD, CABG; still on mechanical ventilation. The patient failed weaning today. PEG tube and tracheostomy are also being considered at this time. Patient has a significant history of COPD and EtOH, also. Patient is mechanically ventilated and sedated. Patient also had an episode of atrial fibrillation, currently in normal sinus rhythm. PHYSICAL EXAMINATION: Pulse is 136, blood pressure 125/46, respiration 67, temperature normal, pulse ox 96% on 50% FiO2. HEENT: Conjunctivae normal. NECK: No jugular venous distention. CARDIOVASCULAR SYSTEM: S1, S2 muffled. RESPIRATORY SYSTEM: Breath sounds diminished at the bases. A few rhonchi. ABDOMEN: Soft. NERVOUS SYSTEM: Patient is mechanically ventilated and sedated. LABS: Accu-Cheks 107, 124. ABGs noted. WBC 16. Hemoglobin is 9.5. ASSESSMENT: 1. Coronary artery disease, status post coronary artery bypass grafting. 2. Acute hypoxic respiratory failure, on mechanical ventilation. 3. Chronic obstructive pulmonary disease, acute exacerbation. 4. Delirium tremens, on CIWA protocol. 5. Right upper and lower lobe collapse secondary to mucus plugging and status post bronchoscopy. 6. Hypertension, essential. 7. History of nicotine dependence. 8. Bibasilar atelectasis. 9. History of ethanol. 10. Left pleural effusion. 11. Paroxysmal atrial fibrillation with a rapid ventricular rate. 12. Increased white count. 13. Anemia, normocytic. RECOMMENDATIONS AND DISCUSSION: I recommend to continue with the current medications, continue with the monitoring, symptomatic treatment. Continue with the bronchodilators. Closely follow with Pulmonary, Dr. Whelan. Possible PEG tube and tracheostomy. Guarded prognosis because of multiple complex medical issues. Monitor blood sugars closely. Further recommendations to follow.
[2016-11-23 00:10] LABS: Glucose,Whole Blood 100 mg/dL (75-99)
[2016-11-23] MEDS: INSULIN LISPRO (humaLOG) 300 UNIT/3 ML VIAL SQ SCH ×6 (00:12→20:39)
[2016-11-23] MEDS: MORPHINE SULFATE 2 MG/ML SYRINGE IVP PRN ×3 (01:05→22:16)
[2016-11-23] MEDS: LEVALBUTEROL NEB (CONC) 1.25 MG/0.5 ML AMP INHALATION SCH ×6 (03:09→23:18)
[2016-11-23] MEDS: IPRATROPIUM 0.5 MG/2.5 ML NEBU INHALATION SCH ×6 (03:09→23:18)
[2016-11-23 04:20] LABS: Basophils % (A) 0 %; CH 32.4; CHCM 34.2; Eosinophils # (A) 0.2 k/uL (0-0.7); Eosinophils % (A) 2 %; HCT 24.5 % (39.0-53.0); HGB 8.5 gm/dL (13.0-17.5); Luc # (Auto) 0.11; Luc % (Auto) 1; Lymphocytes % (A) 8 %; MCH 33.2 pg (25.0-35.0); MCHC 34.8 g/dL (31.0-37.0); MCV 95.4 fL (80.0-100.0); Mean Platelet Volume 7.7; Monocytes # (A) 0.5 k/uL (0-1.0); Monocytes % (A) 4 %; Neutrophils # (A) 10.8 k/uL (1.3-7.7); Neutrophils % (A) 85 %; RBC 2.57 m/uL (4.30-5.90); RDW 13.9 % (11.5-15.5); WBC 12.6 k/uL (3.8-10.6); WBC (Perox) 12.55
[2016-11-23 04:27] LABS: INR 1.3 (<1.1); Prothrombin Time 12.9 sec (9.0-12.0)
[2016-11-23 04:52] LABS: Magnesium 2.2 mg/dL (1.6-2.3); Phosphorous 3.6 mg/dL (2.5-4.5)
[2016-11-23 05:13] LABS: ABG PCO2 26 mmHg (35-45); ABG PH 7.51 (7.35-7.45)
[2016-11-23 05:14] LABS: ABG HCO3 21 mmol/L (21-25); ABG PO2 79 mmHg (83-108); ABG TCO2 22 mmol/L (19-24)
[2016-11-23] MEDS: PROPOFOL 500 MG in EMPTY BAG 1 BAG IV SCH ×2 (05:24→23:40)
[2016-11-23 05:27] LABS: Glucose,Whole Blood 157 mg/dL (75-99)
[2016-11-23] MEDS ORDERED: CALCIUM GLUCONATE 1,000 MG in SODIUM CHLORIDE 0.9% 100 ML IVPB ONE (05:38)
[2016-11-23] MEDS ORDERED: ALBUMIN HUMAN 5% 250 ML in EMPTY BAG 1 BAG IVPB ONE ×2 (05:39→14:08)
[2016-11-23] MEDS: BUDESONIDE 1 MG/2 ML NEBU INHALATION SCH ×2 (07:16→20:02)
[2016-11-23 07:34] LABS: Glucose,Whole Blood 143 mg/dL (75-99)
[2016-11-23 07:43] LABS: Anion Gap 9 mmol/L; Blood Urea Nitrogen 39 mg/dL (9-20); Calcium 7.8 mg/dL (8.4-10.2); Carbon Dioxide 21 mmol/L (22-30); Chloride 110 mmol/L (98-107); Glucose 130 mg/dL (74-99); Non-African American GFR(MDRD) >60 (>60 ml/min/1.73 sqM); Potassium 3.8 mmol/L (3.5-5.1); Sodium 140 mmol/L (137-145)
[2016-11-23] MEDS: CHLORHEXIDINE GLUCONATE 15 ML CUP MUCOUS MEM SCH ×2 (08:27→20:29)
[2016-11-23] MEDS: AMIODARONE 200 MG TAB PO SCH ×2 (08:27→20:30)
[2016-11-23] MEDS: ASPIRIN 325 MG TAB PO SCH (08:27)
[2016-11-23] MEDS: ATORVASTATIN 40 MG TAB PO SCH (08:27)
[2016-11-23] MEDS: LACTULOSE 20 GM/30 ML CUP PO SCH ×2 (08:27→20:29)
[2016-11-23] MEDS: PANTOPRAZOLE 40 MG/10 ML VIAL IVP SCH (08:28)
[2016-11-23] MEDS: LISINOPRIL 10 MG TAB PO SCH ×2 (08:28→21:35)
[2016-11-23] MEDS: THIAMINE 100 MG TAB PO SCH ×2 (08:29→20:30)
[2016-11-23] MEDS: METOPROLOL TARTRATE 50 MG TAB PO SCH ×2 (08:29→12:34)
[2016-11-23] MEDS: DIGOXIN 250 MCG TAB OG-TUBE SCH (08:29)
--- NOTE | 2016-11-23 10:33 | XR ---
EXAMINATION TYPE: XR chest 1V portable DATE OF EXAM: 11/23/2016 7:04 AM COMPARISON: 11/22/2016 INDICATION: Postop CABG previous abnormal chest TECHNIQUE: Single frontal view of the chest is obtained. FINDINGS: The heart size is borderline prominent. The pulmonary vasculature is normal. There is improving infiltrate at the left base. Mild residual silhouettes the left diaphragm. Endotracheal tube is present with tip above the stephanie. Nasogastric tube transverses the thorax. IMPRESSION: 1. Improving left lower lobe infiltrate. 2. Lines and catheters discussed above
[2016-11-23] MEDS: DIGOXIN 250 MCG/ML 2 ML AMP IVP SCH (10:46)
[2016-11-23] MEDS: LISINOPRIL 5 MG TAB PO SCH (10:47)
[2016-11-23] MEDS: METOPROLOL TARTRATE 25 MG TAB PO SCH ×2 (10:47→20:39)
[2016-11-23] MEDS: HYDROcodone/APAP 5-325MG 1 EACH TAB PO PRN (11:21)
[2016-11-23] MEDS: HEPARIN SODIUM,PORCINE/D5W PMX 25,000 UNIT in DEXTROSE/WATER 1 500ML.BAG IV SCH (11:27)
--- NOTE | 2016-11-23 11:28 | P.PN ---
Progress Note - Text CV Surgery Nursing Principal diagnosis: Coronary artery disease, status post prior stenting to his right coronary artery. Preserved left ventricular function. Hyperlipidemia. Hypertension. ETOH abuse. POD #13 total arterial non-aortic patch off-pump double coronary artery bypass grafting using in situ skeletonized right internal mammary artery to the left anterior descending artery across the anterior midline in situ totally skeletonized left internal mammary artery to the first obtuse marginal artery. Intraoperative transesophageal echocardiogram and epi-aortic scanning. Intraoperative graft flow measurements using the [employer] system Patient had postoperative mucous plugging with increasing oxygen demand requiring bronchoscopy the night of surgery. Bronchial washings negative for bacteria/viruses to date. Pt developed postoperative alcohol withdrawal requiring increased sedation and continued mechanical ventilation. He remains sedated with mechanical ventilator support, he is alert and following some simple commands. Still remains with generalized weakness, although moving his upper and lower extremities more so today. Vital Signs: Afebrile Vital Signs - 24 hr 11/22/16 11/22/16 11/22/16 11:30 11:44 12:00 Temperature 98.1 F Pulse Rate 74 69 64 Respiratory 24 20 Rate O2 Sat by Pulse 97 94 L Oximetry 11/22/16 11/22/16 11/22/16 12:30 13:00 13:30 Temperature Pulse Rate 67 63 66 Respiratory 22 19 25 H Rate O2 Sat by Pulse 95 95 97 Oximetry 11/22/16 11/22/16 11/22/16 14:00 14:30 15:00 Temperature Pulse Rate 61 67 136 H Respiratory 21 20 67 H Rate O2 Sat by Pulse 97 96 96 Oximetry 11/22/16 11/22/16 11/22/16 15:20 15:30 16:00 Temperature 98.2 F Pulse Rate 62 65 62 Respiratory 58 H 22 Rate O2 Sat by Pulse 94 L 95 Oximetry 11/22/16 11/22/16 11/22/16 16:06 16:30 17:00 Temperature Pulse Rate 62 60 61 Respiratory 20 22 Rate O2 Sat by Pulse Oximetry 11/22/16 11/22/16 11/22/16 17:30 18:00 18:30 Temperature Pulse Rate 60 59 L 65 Respiratory 22 22 25 H Rate O2 Sat by Pulse Oximetry 11/22/16 11/22/16 11/22/16 19:00 19:18 19:30 Temperature Pulse Rate 70 69 71 Respiratory 27 H 28 H Rate O2 Sat by Pulse 94 L Oximetry 11/22/16 11/22/16 11/22/16 19:31 20:00 20:30 Temperature 100.5 F H Pulse Rate 72 73 63 Respiratory 27 H 22 Rate O2 Sat by Pulse 95 98 Oximetry 11/22/16 11/22/16 11/22/16 21:00 21:30 22:00 Temperature 98.9 F Pulse Rate 64 61 61 Respiratory 22 30 H 26 H Rate O2 Sat by Pulse 97 96 96 Oximetry 11/22/16 11/22/16 11/22/16 22:30 23:00 23:12 Temperature Pulse Rate 60 60 60 Respiratory 29 H 22 24 Rate O2 Sat by Pulse 98 98 98 Oximetry 11/22/16 11/22/16 11/22/16 23:20 23:30 23:32 Temperature Pulse Rate 70 77 67 Respiratory 30 H Rate O2 Sat by Pulse 95 Oximetry 11/23/16 11/23/16 11/23/16 00:00 01:00 02:00 Temperature Pulse Rate 66 74 75 Respiratory 22 32 H 33 H Rate O2 Sat by Pulse 99 95 94 L Oximetry 11/23/16 11/23/16 11/23/16 03:00 03:11 04:00 Temperature 100.3 F H Pulse Rate 74 71 77 Respiratory 29 H 25 H Rate O2 Sat by Pulse 96 96 Oximetry 11/23/16 11/23/16 11/23/16 05:00 06:00 07:00 Temperature Pulse Rate 74 80 86 Respiratory 29 H 26 H 28 H Rate O2 Sat by Pulse 94 L 94 L 94 L Oximetry 11/23/16 11/23/16 07:21 07:41 Temperature Pulse Rate 78 79 Respiratory Rate O2 Sat by Pulse Oximetry ABP, PAP, CO, CI - Last 8 Hours Arterial Blood Pressure 119/38 Arterial Blood Pressure 130/43 Arterial Blood Pressure 90/40 Arterial Blood Pressure 91/41 Labs: Short CBC 11/23/16 Range/Units 04:05 WBC 12.6 H (3.8-10.6) k/uL Hgb 8.5 L (13.0-17.5) gm/dL Hct 24.5 L (39.0-53.0) % Plt Count 324 (150-450) k/uL Neutrophils # 10.8 H (1.3-7.7) k/uL BMP 11/23/16 04:05 Sodium 140 Potassium 3.8 Chloride 110 H Carbon Dioxide 21 L BUN 39 H Creatinine 1.01 Glucose 130 H Calcium 7.8 L ABG ABG pH 7.51 (7.35-7.45) H 11/23/16 04:47 ABG pCO2 26 mmHg (35-45) L 11/23/16 04:47 ABG pO2 79 mmHg (83-108) L 11/23/16 04:47 ABG O2 Saturation 97.0 % (94-97) 11/23/16 04:47 PT/INR, D-dimer PT 12.9 sec (9.0-12.0) H 11/23/16 04:05 INR 1.3 (<1.1) 11/23/16 04:05 Microbiology 11/21/16 04:40 Sputum Gram Stain - Final 11/21/16 04:40 Sputum Sputum Culture - Final Moraxella(branhamella) catarra 11/21/16 02:00 Blood Blood Culture - Preliminary No Growth after 48 hours 11/20/16 17:44 Urine,Catheterized Urine Culture - Final Klebsiella pneumoniae 11/10/16 16:40 Lung - Right Fungal Culture - Preliminary Rhiannon tropicalis 11/10/16 16:40 Lung Aspirate - Right Gram Stain - Final 11/10/16 16:40 Lung Aspirate - Right Bronchial Washings Culture - Final 11/10/16 16:40 Lung - Right Acid Fast Bacilli Smear - Final 11/10/16 16:40 Lung - Right Acid Fast Bacilli Culture - Preliminary IV Fluids: 0.9% normal saline at 20 mL per hour Heparin drip at 14 units per kilogram per hour. Propofol drip currently on hold at this time for weaning trial. Lungs: Few scattered rhonchi throughout, diminished bilateral bases. Respirations are unlabored with mechanical ventilator support. Current ventilator settings are as follows: Before meals 20 pressure control ventilation 18/0.80, FiO2 50%, PEEP 7. O2 sat: 95% with mechanical ventilator support, current ventilator setting FiO2 is 50%. Heart: S1S2, regular rhythm and rate, negative for S3, gallop or murmur. Bedside telemetry showing normal sinus rhythm heart rate 77 Sternum stable, chest incision dressing clean and dry. No drainage noted. Heart hugger in place, will need assistance using a heart hugger with coughing due to his generalized weakness. Knee-high CEZAR hose and sequential compression devices in place to bilateral lower extremities. Abdomen: Soft, Positive bowel sounds present in all 4 quadrants, OG tube with tube feeding of vital high-protein infusing at 43 mL per hour which is goal and with 150 mL automatic water flushes every 4 hours. Last bowel movement was . CBGs: 100-157 mg/dL in the last 24 hours. U/O: Adequate, Tay catheter for accurate I&O. 520 mL output in the last 8 hours. 24 hr Total: Intake & Output 11/21/16 11/22/16 11/23/16 11/24/16 06:59 06:59 06:59 06:59 Intake Total 3165.755 5773.309 9193.230 563 Output Total 2045 2470 1790 40 Balance 1120.755 -937.612 723.230 523 Weight 101 kg 100.5 kg 101.6 kg Active Medications Hydrocodone Bitart/Acetaminophen ([place] 5-325) 2 each PO Q4HR PRN PRN Reason: Severe Pain Last Admin: 11/23/16 11:21 Dose: 2 each Hydrocodone Bitart/Acetaminophen ([place] 5-325) 1 each PO Q4HR PRN PRN Reason: Moderate Pain Amiodarone HCl (Cordarone) 200 mg PO BID [facility] Last Admin: 11/23/16 08:27 Dose: 200 mg Aspirin (Aspirin) 325 mg PO DAILY [facility] Last Admin: 11/23/16 08:27 Dose: 325 mg Atorvastatin Calcium (Lipitor) 40 mg PO DAILY [facility] Last Admin: 11/23/16 08:27 Dose: 40 mg Benzocaine (Hurricaine [place]) 1 applic MUCOUS MEM QID PRN PRN Reason: Mouth Irritation Last Admin: 11/14/16 11:36 Dose: 1 applic Benzocaine/Menthol (Cepacol Lozenge) 1 each MUCOUS MEM Q2H PRN PRN Reason: Sore Throat Bisacodyl (Dulcolax) 10 mg RECTAL DAILY PRN PRN Reason: Constipation Last Admin: 11/16/16 17:18 Dose: 10 mg Budesonide (Pulmicort) 1 mg INHALATION RT-BID [facility] Last Admin: 11/23/16 07:16 Dose: 1 mg Chlorhexidine Gluconate (Peridex) 15 ml MUCOUS MEM BID [facility] Last Admin: 11/23/16 08:27 Dose: 15 ml Digoxin (Lanoxin) 250 mcg OG-TUBE DAILY [facility] Last Admin: 11/23/16 08:29 Dose: 250 mcg Heparin Sodium (Porcine) (Heparin) 0 unit IV PER PROTOCOL PRN; Protocol PRN Reason: Low PTT Last Admin: 11/20/16 16:59 Dose: 2,497 unit Propofol 500 mg/ IV Solution 50 mls @ 0 mls/hr IV .Q0M [facility]; Titrate PRN Reason: Protocol Last Admin: 11/23/16 05:24 Dose: 20 mcg/kg/min, 11.68 mls/hr Heparin Sodium/Dextrose 25,000 (unit/ IV Solution) 500 mls @ 19.98 mls/hr IV .Q24H [place]; 10 UNITS/KG/HR PRN Reason: Protocol Last Titration: 11/23/16 07:54 Dose: Infused Sodium Chloride (Saline 0.9%) 1,000 mls @ 20 mls/hr IV .Q24H [facility] Last Admin: 11/22/16 11:58 Dose: 20 mls/hr Levofloxacin 750 mg/ IV (Solution) 150 mls @ 100 mls/hr IVPB Q24H [facility] Last Admin: 11/22/16 17:43 Dose: 100 mls/hr Insulin Human Lispro (Humalog) 0 unit SQ Q4H [facility] PRN Reason: Protocol Last Admin: 11/23/16 08:26 Dose: 1 unit Ipratropium [place] (Atrovent Nebulized) 0.5 mg INHALATION RT-Q4H [facility] Last Admin: 11/23/16 11:11 Dose: 0.5 mg Iron/Minerals/Multivitamins (Theragran Liquid) 15 ml PO DAILY@1200 [facility] Last Admin: 11/22/16 11:58 Dose: 15 ml Lactulose (Cephulac) 30 gm PO BID [facility] Last Admin: 11/23/16 08:27 Dose: 30 gm Levalbuterol HCl (Xopenex Nebulized (Conc)) 1.25 mg INHALATION RT-Q4H [facility] Last Admin: 11/23/16 11:11 Dose: 1.25 mg Lisinopril (Zestril) 10 mg PO BID [facility] Last Admin: 11/23/16 08:28 Dose: Not Given Magnesium Hydroxide (Milk Of Magnesia) 2,400 mg PO BID PRN PRN Reason: Constipation Metoclopramide HCl (Reglan) 10 mg IVP Q4H PRN PRN Reason: Nausea And Vomiting Metoprolol Tartrate (Lopressor) 50 mg PO BID [facility] Last Admin: 11/23/16 08:29 Dose: Not Given Miscellaneous Information (Magnesium Per Protocol) 1 each MISCELLANE DAILY PRN ; Protocol PRN Reason: Per Protocol Miscellaneous Information (Phosphorus Per Protocol) 1 each MISCELLANE DAILY PRN ; Protocol PRN Reason: Per Protocol Miscellaneous Information (Potassium Per Protocol) 1 each MISCELLANE DAILY PRN ; Protocol PRN Reason: Per Protocol Morphine Sulfate (Morphine Sulfate (Inj)) 2 mg IVP Q2H PRN PRN Reason: Severe Pain Last Admin: 11/23/16 07:10 Dose: 2 mg Ondansetron HCl (Zofran) 4 mg IVP Q6HR PRN PRN Reason: Nausea And Vomiting Pantoprazole Sodium (Protonix) 40 mg IVP DAILY [facility] Last Admin: 11/23/16 08:28 Dose: 40 mg Senna/Docusate Sodium (Senokot-S) 2 each PO HS [facility] Last Admin: 11/22/16 20:03 Dose: 2 each Sodium Chloride (Saline Flush) 10 ml IV BID [facility] Last Admin: 11/23/16 08:28 Dose: 10 ml Sodium Chloride (Saline Flush) 20 ml IV Q4HR PRN PRN Reason: PICC Line Sodium Chloride (Saline Flush) 10 ml IV WEEKLY [facility] Sodium Chloride (Saline Flush) 10 ml IV Q4HR PRN PRN Reason: PICC Line Thiamine HCl (Vitamin B-1) 100 mg PO BID [facility] Last Admin: 11/23/16 08:29 Dose: 100 mg Plan: 1. Continue aspirin, Lipitor, Lopressor, lisinopril, digoxin. 2. Continue amiodarone for atrial fibrillation/atrial flutter prophylaxis. Cardiology to manage. 3. Ventilator management and pulmonary management per Dr Whelan. 4. Physical therapy for range of motion exercises. 5. Insulin/diabetic management per primary care service. 6. Change Tay catheter, patient had a positive urine culture yesterday for Klebsiella pneumoniae. 7. Daily labs, chest x-rays. 8. GI/DVT prophylaxis. 9. Diprivan drip is on hold to evaluate underlying mentation and possible attempt to wean from the ventilator. 10. Heparin protocol continued for atrial fibrillation/atrial flutter. 11. Tube feedings continued as ordered. Change automatic water flushes to 100 mL every 4 hours. 12. More recommendations as patient progresses.
[2016-11-23] MEDS: MULTIVITAMINS, THERA LIQUID 237 ML BOTTLE PO SCH (11:29)
[2016-11-23] MEDS: SODIUM CHLORIDE 0.9% 1,000 ML IV SCH (11:29)
[2016-11-23 12:02] LABS: Glucose,Whole Blood 141 mg/dL (75-99)
[2016-11-23 12:57] LABS: Glucose,Whole Blood 189 mg/dL (75-99)
--- NOTE | 2016-11-23 13:23 | P.PN ---
Subjective 61-year-old male patient with status post carotid bypass surgery and the patient is postop day #11. The patient has failed to wean off the mechanical ventilator. Immediately postop the patient had pulmonate complications including mucous plugs and atelectasis of the left lung. He required bronchoscopy and therapeutic airway suctioning and all of the respiratory cultures came back negative. This morning, the patient was on a volume cycled assist-control mode of ventilation at the rate of 20, tidal volume 450, FiO2 of 40% and a PEEP of 5. I reviewed the blood gases and I reviewed also the chest x -ray. I noted that the patient was unable to tolerate assist-control mode. Attempts to wean him off the sedation Emily as the patient was becoming restless and a successful the mechanical ventilator. Based on this, I switched this patient to a pressure support mode of ventilation and I was able to completely wean him off sedation. He was wide awake all he was hardly able to wiggle his toes or move his fingers and he was unable to raise his had or arms against gravity. He was having copious amount of rest or secretions and he was requiring frequent suctioning. At a later stage, switch this patient to a pressure control mode of ventilation with a PEEP of 7 and a pressure control of 20 and his FiO2 was At 60%. He remains hemodynamically stable. He is producing adequate amount of urine output. No pressors at this point. No fever. No chills. Chest tubes have been all removed. He is tolerating tube feeds. Atelectatic discussion with the cardiothoracic surgeon and will plan to proceed with a PEG and trach if the patient ultimately failed weaning. 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 On 11/22/2016 the patient remains intubated on a mechanical ventilator. I was able to the sedation completely on the patient. He is awake at this point and he had been awake throughout the night. He is following simple commands. Motor functions are nearly absent. The patient is extremely weak. He can wiggle his toes and occasionally bend his knees. Otherwise he cannot raise his arms and legs against gravity. He has a cough reflex. He can blink his eyes and raises eyebrows. Reflexes are significantly diminished in the upper and lower extremities bilaterally. Is on a pressure control mode of ventilation at the rate of 18, PC 18, PEEP of 7 and FiO2 of 50%. Still having significant respiratory secretions through the orotracheal tube. The chest x-ray from today shows moderate parenchymal opacity within the left lung base and the right lung base. There is some atelectatic changes in the lung bases more so on the left. The patient has also postop changes related to coronary artery bypass surgery. No fever. No chills. Hemodynamically stable. Producing adequate amount of urine output and the patient was diuresis with a combination of albumin and Lasix. He is on tube feeds. On 11/23/2016 the patient remains on a mechanical ventilator. Seems to be much more awake compared to yesterday. Motor functions remain weak over the patient is doing more activity and movement on today's evaluation. We were able to bring the patient is sitting up position for a total of 2 hours today. He tolerated well and following that he had a coughing spells and he had to be placed in bed. He remains in the same vent setting with a pressure control of 18, PEEP of 7, FiO2 of 50% and rate of 18. Chest x-ray shows adequate expansion of the left lung with a few being in good location. Sputum analysis showed Moraxella catarrhalis and the based on that the patient was started on Levaquin. Note that he had also Klebsiella PNEUMONIA IN HIS URINE, AND BOTH OF THESE MICROORGANISMS SHOULD RESPOND TO LEVAQUIN. Meanwhile, the patient is receiving enteral feeding for nutritional support. IV Solu Medrol is been discontinued. We'll doing daily physical therapy and passive range of motion. He remains on IV heparin. He remains on IV insulin for blood sugar control. Morning blood gases showed a pH of 7.51 with a pCO2 of 26 and pO2 of 79. Weaning parameters are still poor as the patient has rapid shallow breathing index around 120 and the patient becomes tachypneic and the LOW tidal volumes. Objective - Vital Signs Vital signs: Vital Signs Temp 100.3 F H 11/23/16 04:00 Pulse 90 11/23/16 11:33 Resp 28 H 11/23/16 07:00 BP 109/73 11/20/16 08:00 Pulse Ox 94 L 11/23/16 07:00 Intake & Output 11/22/16 11/23/16 11/23/16 18:59 06:59 18:59 Intake Total 7766.297 7128 613 Output Total 950 840 40 Balance 492.230 231 573 Weight 100.5 kg 101.6 kg Intake: IV 240 240 20 Sodium Chloride 0.9% 1, 240 240 20 000 ml @ 20 mls/hr IV . Q24H [facility] Rx#:[id number] Intake, IV Titration 257.230 100 550 Amount Albumin Human 25% 50 ml 50 In Empty Bag 1 bag @ 100 mls/hr IVPB ONCE ONE Rx#: [id number] Heparin Sodium,Porcine/ 500 D5w Pmx 25,000 unit In Dextrose/Water 1 500ml. bag @ 10 UNITS/KG/HR 19. 98 mls/hr IV .Q24H [facility] Rx #:[id number] Levofloxacin 750Mg-D5w 150 Pmx 750 mg In Dextrose/ Water 1 150ml.bag @ 100 mls/hr IVPB Q24H [facility] Rx#: [id number] Propofol 500 mg In Empty 57.230 100 50 Bag 1 bag @ Titrate IV . Q0M [facility] Rx#:[id number] Tube Feeding 645 731 43 Other 300 Output: Urine 950 840 40 Other: Voiding Method Indwelling Catheter Indwelling Catheter ABP, PAP, CO, CI - Last Documented Arterial Blood Pressure 119/38 Pulmonary Artery Pressure 46/23 Cardiac Output 6.8 Cardiac Index 3.3 - Exam Head exam was generally normal. There was no scleral icterus or corneal arcus. Mucous membranes were moist.Neck was supple and without jugular venous distension, thyromegaly, or carotid bruits. Carotids were easily palpable bilaterally. There was no adenopathy. Lung sounds are diminished in lung bases especially in the left lung base. No wheezes overall currently crackles. Sounds are irregular, normal S1-S2, sternal stable clean and intact. No chest tubes are in place.Abdominal exam revealed normal bowel sounds. The abdomen was soft, non-tender, and without masses, organomegaly, or appreciable enlargement of the abdominal aorta.Examination of the extremities revealed easily palpable radial, femoral and pedal pulses. There was no cyanosis, clubbing or edema. Neurologically the patient is awake and he can follow some simple commands. Nevertheless is very hard for him to move his extremities against gravity. He has a positive cough and gag. Unable to raise his head of the bed. Reflexes are diminished , nearly absent, in all extremities symmetrically. - Labs CBC & Chem 7: 11/23/16 04:05 04/26/17 04:05 Labs: Abnormal Lab Results - Last 24 Hours (Table) 11/22/16 11/22/16 11/22/16 Range/Units 04:30 16:00 18:04 WBC (3.8-10.6) k/uL RBC (4.30-5.90) m/uL Hgb (13.0-17.5) gm/dL Hct (39.0-53.0) % Neutrophils # (1.3-7.7) k/uL PT (9.0-12.0) sec APTT (22.0-30.0) sec ABG pH (7.35-7.45) ABG pCO2 (35-45) mmHg ABG pO2 (83-108) mmHg Chloride (98-107) mmol/L Carbon Dioxide (22-30) mmol/L BUN (9-20) mg/dL Glucose (74-99) mg/dL POC Glucose (mg/dL) 137 H 150 H (75-99) mg/dL Hemoglobin A1c 6.3 H (4.2-6.1) % Calcium (8.4-10.2) mg/dL TSH (0.465-4.680) mIU/L 11/22/16 11/23/16 11/23/16 Range/Units 19:59 00:09 04:05 WBC 12.6 H (3.8-10.6) k/uL RBC 2.57 L (4.30-5.90) m/uL Hgb 8.5 L (13.0-17.5) gm/dL Hct 24.5 L (39.0-53.0) % Neutrophils # 10.8 H (1.3-7.7) k/uL PT (9.0-12.0) sec APTT (22.0-30.0) sec ABG pH (7.35-7.45) ABG pCO2 (35-45) mmHg ABG pO2 (83-108) mmHg Chloride (98-107) mmol/L Carbon Dioxide (22-30) mmol/L BUN (9-20) mg/dL Glucose (74-99) mg/dL POC Glucose (mg/dL) 135 H 100 H (75-99) mg/dL Hemoglobin A1c (4.2-6.1) % Calcium (8.4-10.2) mg/dL TSH (0.465-4.680) mIU/L 11/23/16 11/23/16 11/23/16 Range/Units 04:05 04:05 04:05 WBC (3.8-10.6) k/uL RBC (4.30-5.90) m/uL Hgb (13.0-17.5) gm/dL Hct (39.0-53.0) % Neutrophils # (1.3-7.7) k/uL PT 12.9 H (9.0-12.0) sec APTT (22.0-30.0) sec ABG pH (7.35-7.45) ABG pCO2 (35-45) mmHg ABG pO2 (83-108) mmHg Chloride 110 H (98-107) mmol/L Carbon Dioxide 21 L (22-30) mmol/L BUN 39 H (9-20) mg/dL Glucose 130 H (74-99) mg/dL POC Glucose (mg/dL) (75-99) mg/dL Hemoglobin A1c (4.2-6.1) % Calcium 7.8 L (8.4-10.2) mg/dL TSH 0.454 L (0.465-4.680) mIU/L 11/23/16 11/23/16 11/23/16 Range/Units 04:05 04:47 05:26 WBC (3.8-10.6) k/uL RBC (4.30-5.90) m/uL Hgb (13.0-17.5) gm/dL Hct (39.0-53.0) % Neutrophils # (1.3-7.7) k/uL PT (9.0-12.0) sec APTT 42.5 H (22.0-30.0) sec ABG pH 7.51 H (7.35-7.45) ABG pCO2 26 L (35-45) mmHg ABG pO2 79 L (83-108) mmHg Chloride (98-107) mmol/L Carbon Dioxide (22-30) mmol/L BUN (9-20) mg/dL Glucose (74-99) mg/dL POC Glucose (mg/dL) 157 H (75-99) mg/dL Hemoglobin A1c (4.2-6.1) % Calcium (8.4-10.2) mg/dL TSH (0.465-4.680) mIU/L 11/23/16 11/23/16 11/23/16 Range/Units 07:31 12:00 12:55 WBC (3.8-10.6) k/uL RBC (4.30-5.90) m/uL Hgb (13.0-17.5) gm/dL Hct (39.0-53.0) % Neutrophils # (1.3-7.7) k/uL PT (9.0-12.0) sec APTT (22.0-30.0) sec ABG pH (7.35-7.45) ABG pCO2 (35-45) mmHg ABG pO2 (83-108) mmHg Chloride (98-107) mmol/L Carbon Dioxide (22-30) mmol/L BUN (9-20) mg/dL Glucose (74-99) mg/dL POC Glucose (mg/dL) 143 H 141 H 189 H (75-99) mg/dL Hemoglobin A1c (4.2-6.1) % Calcium (8.4-10.2) mg/dL TSH (0.465-4.680) mIU/L Microbiology - Last 24 Hours (Table) 11/21/16 04:40 Gram Stain - Final Sputum Sputum Culture - Final Moraxella(branhamella) catarra 11/21/16 02:00 Blood Culture - Preliminary Blood No Growth after 48 hours 11/20/16 17:44 Urine Culture - Final Urine,Catheterized Klebsiella pneumoniae 11/10/16 16:40 Fungal Culture - Preliminary Lung - Right Rhiannon tropicalis Assessment and Plan Plan: Assessment 1 Coronary artery disease status post carotid bypass surgery and the patient is postop day #13 2 prolonged postoperative ventilator-dependent history failure, multifactorial. The active issue for now as the significant neuromuscular weakness that has complicated the patient's recovery. On 11/23/2016 the patient remains on a pressure control mode of ventilation. Weaning parameters are weak. The patient has profound neuromuscular weakness which is the main obstacle to hours further weaning. 3 recurrent mucous plugs with excessive respiratory secretions requiring bronchoscopy and a peak airway suctioning and a bronchoscopy cultures came back negative for any microbial growth The most recent sputum analysis showing Moraxella catarrhalis and the patient is currently on Levaquin. 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 Proceed with daily physical therapy and with the range of motion. Continue the pressure control mode of ventilation. Cut on the pressure controlled down to 18 and keep the PEEP at 7 and gradually weaned off the FiO2. I've already drop the FiO2 down to 50% the patient remains profoundly weak and he has poor weaning parameters and does not seem to be a good candidate for further weaning at this point in time. Nevertheless, he was able to sit up on a chair while being intubated and is gradually getting stronger and the motor functions gradually improving. Mentation is appropriate and the patient is alert and this point. The patient will be continued on vent support. The patient will be treated with Levaquin regarding Moraxella catarrhalis in his sputum. This will also cover for his Klebsiella pneumonia his urine. The ultimate plan is still consider tracheostomy tube insertion within next 24-48 hours specially if he fails to wean further. We'll continue to follow make further recommendations accordingly. This is a critically care evaluation that was done and 32 minutes. Time with Patient: Greater than 30
[2016-11-23] MEDS ORDERED: ALBUMIN HUMAN 5% 250 ML IVPB ONE ×2 (14:07→14:40)
[2016-11-23 16:16] LABS: Glucose,Whole Blood 133 mg/dL (75-99)
[2016-11-23] MEDS: LEVOFLOXACIN 750MG-D5W PMX 750 MG in DEXTROSE/WATER 1 150ML.BAG IVPB SCH (16:16)
--- NOTE | 2016-11-23 16:41 | P.PN ---
Subjective This is a 60-year-old gentleman that is status post CABG postop day 11. Failure to wean from mechanical ventilator. Patient is seen in consultation for medical management. Patient is currently on pressure control ventilation with PTCA of 18 cm water Depo 7 FiO2 50% and respiratory rate of 18. Patient is awake however not responsive appropriately. Is moving his all 4 extremities to command This a.m. patient apparently was having episodes of hypotension as patient was going into atrial fibrillation. Weaning trials were attempted this a.m. with a pressure support of 7 according to verbal report patient apparently had tachypnea within 5 minutes hence was restarted on full pressure-controlled ventilation. Objective - Vital Signs Vital signs: Vital Signs Temp 100.0 F H 11/23/16 12:00 Pulse 120 H 11/23/16 14:00 Resp 26 H 11/23/16 14:00 BP 94/62 11/23/16 12:00 Pulse Ox 96 11/23/16 14:00 Intake & Output 11/22/16 11/23/16 11/23/16 18:59 06:59 18:59 Intake Total 1236.541 4885 1597 Output Total 950 840 522 Balance 492.043 540 5977 Weight 100.5 kg 101.6 kg Intake: IV 240 240 160 Sodium Chloride 0.9% 1, 240 240 160 000 ml @ 20 mls/hr IV . Q24H [facility] Rx#:[id number] Intake, IV Titration 257.237 376 7219 Amount Albumin Human 25% 50 ml 50 In Empty Bag 1 bag @ 100 mls/hr IVPB ONCE ONE Rx#: [id number] Albumin Human 5% 250 ml 500 In Empty Bag 1 bag @ 250 mls/hr IVPB ONCE ONE Rx#: [id number] Heparin Sodium,Porcine/ 500 D5w Pmx 25,000 unit In Dextrose/Water 1 500ml. bag @ 10 UNITS/KG/HR 19. 98 mls/hr IV .Q24H [facility] Rx #:[id number] Levofloxacin 750Mg-D5w 150 Pmx 750 mg In Dextrose/ Water 1 150ml.bag @ 100 mls/hr IVPB Q24H [facility] Rx#: [id number] Propofol 500 mg In Empty 57.230 100 50 Bag 1 bag @ Titrate IV . Q0M [facility] Rx#:[id number] Tube Feeding 645 731 387 Other 300 Output: Urine 950 840 522 Other: Voiding Method Indwelling Catheter Indwelling Catheter ABP, PAP, CO, CI - Last Documented Arterial Blood Pressure 71/44 Pulmonary Artery Pressure 46/23 Cardiac Output 6.8 Cardiac Index 3.3 - Exam Gen. appearance intubated awake however not appropriate to commands Lungs diminished breath sounds no rhonchi wheezing or crackles appreciated Heart S1-S2 heard no significant murmurs appreciated Abdomen is soft nontender no organomegaly Lower extremities no significant edema Neuro is deferred vent settings were discussed above - Labs CBC & Chem 7: 11/23/16 04:05 11/23/16 04:05 Labs: Abnormal Lab Results - Last 24 Hours (Table) 11/22/16 11/22/16 11/23/16 Range/Units 18:04 19:59 00:09 WBC (3.8-10.6) k/uL RBC (4.30-5.90) m/uL Hgb (13.0-17.5) gm/dL Hct (39.0-53.0) % Neutrophils # (1.3-7.7) k/uL PT (9.0-12.0) sec APTT (22.0-30.0) sec ABG pH (7.35-7.45) ABG pCO2 (35-45) mmHg ABG pO2 (83-108) mmHg Chloride (98-107) mmol/L Carbon Dioxide (22-30) mmol/L BUN (9-20) mg/dL Glucose (74-99) mg/dL POC Glucose (mg/dL) 150 H 135 H 100 H (75-99) mg/dL Calcium (8.4-10.2) mg/dL TSH (0.465-4.680) mIU/L 11/23/16 11/23/16 11/23/16 Range/Units 04:05 04:05 04:05 WBC 12.6 H (3.8-10.6) k/uL RBC 2.57 L (4.30-5.90) m/uL Hgb 8.5 L (13.0-17.5) gm/dL Hct 24.5 L (39.0-53.0) % Neutrophils # 10.8 H (1.3-7.7) k/uL PT 12.9 H (9.0-12.0) sec APTT (22.0-30.0) sec ABG pH (7.35-7.45) ABG pCO2 (35-45) mmHg ABG pO2 (83-108) mmHg Chloride (98-107) mmol/L Carbon Dioxide (22-30) mmol/L BUN (9-20) mg/dL Glucose (74-99) mg/dL POC Glucose (mg/dL) (75-99) mg/dL Calcium (8.4-10.2) mg/dL TSH 0.454 L (0.465-4.680) mIU/L 11/23/16 11/23/16 11/23/16 Range/Units 04:05 04:05 04:47 WBC (3.8-10.6) k/uL RBC (4.30-5.90) m/uL Hgb (13.0-17.5) gm/dL Hct (39.0-53.0) % Neutrophils # (1.3-7.7) k/uL PT (9.0-12.0) sec APTT 42.5 H (22.0-30.0) sec ABG pH 7.51 H (7.35-7.45) ABG pCO2 26 L (35-45) mmHg ABG pO2 79 L (83-108) mmHg Chloride 110 H (98-107) mmol/L Carbon Dioxide 21 L (22-30) mmol/L BUN 39 H (9-20) mg/dL Glucose 130 H (74-99) mg/dL POC Glucose (mg/dL) (75-99) mg/dL Calcium 7.8 L (8.4-10.2) mg/dL TSH (0.465-4.680) mIU/L 11/23/16 11/23/16 11/23/16 Range/Units 05:26 07:31 12:00 WBC (3.8-10.6) k/uL RBC (4.30-5.90) m/uL Hgb (13.0-17.5) gm/dL Hct (39.0-53.0) % Neutrophils # (1.3-7.7) k/uL PT (9.0-12.0) sec APTT (22.0-30.0) sec ABG pH (7.35-7.45) ABG pCO2 (35-45) mmHg ABG pO2 (83-108) mmHg Chloride (98-107) mmol/L Carbon Dioxide (22-30) mmol/L BUN (9-20) mg/dL Glucose (74-99) mg/dL POC Glucose (mg/dL) 157 H 143 H 141 H (75-99) mg/dL Calcium (8.4-10.2) mg/dL TSH (0.465-4.680) mIU/L 11/23/16 11/23/16 11/23/16 Range/Units 12:50 12:55 16:14 WBC (3.8-10.6) k/uL RBC (4.30-5.90) m/uL Hgb (13.0-17.5) gm/dL Hct (39.0-53.0) % Neutrophils # (1.3-7.7) k/uL PT (9.0-12.0) sec APTT 56.5 H (22.0-30.0) sec ABG pH (7.35-7.45) ABG pCO2 (35-45) mmHg ABG pO2 (83-108) mmHg Chloride (98-107) mmol/L Carbon Dioxide (22-30) mmol/L BUN (9-20) mg/dL Glucose (74-99) mg/dL POC Glucose (mg/dL) 189 H 133 H (75-99) mg/dL Calcium (8.4-10.2) mg/dL TSH (0.465-4.680) mIU/L Microbiology - Last 24 Hours (Table) 11/21/16 04:40 Gram Stain - Final Sputum Sputum Culture - Final Moraxella(branhamella) catarra 11/21/16 02:00 Blood Culture - Preliminary Blood No Growth after 48 hours 11/20/16 17:44 Urine Culture - Final Urine,Catheterized Klebsiella pneumoniae 11/10/16 16:40 Fungal Culture - Preliminary Lung - Right Rhiannon tropicalis Assessment and Plan Plan: #1 acute hypoxic respiratory failure as expected however prolonged due to other comorbidities from the recent surgery #2 CAD status post CABG postop day 13 #3 critical care polyneuropathy #4 history of hypertension #5 dyslipidemia #6 proximal atrial fibrillation recurrent episodes of A. fib with RVR. #7 history of significant alcohol use status post a prolonged episode of delirium tremens #8 gout #9 diabetes mellitus currently on insulin drip. #10 dysphagia secondary to above #11 M .catarrhalis tracheal bronchitis Plan Continue ongoing care patient will likely need a PEG and trach. This is day 13 of ventilation support. The environmental advisor feels that it is likely due to significant weakness. Microbiology was reviewed continue ongoing care with the current antibiotic therapy if susceptibilities change will likely need to add additional medications were axilla catarrhalis tracheobronchitis
[2016-11-23] MEDS ORDERED: BISACODYL 10 MG SUPP RECTAL STA (16:45)
[2016-11-23 20:40] LABS: Glucose,Whole Blood 143 mg/dL (75-99)
--- NOTE | 2016-11-23 21:23 | P.PN ---
Subjective Principal diagnosis: Status post CABG, respiratory failure, atrial fibrillation and inability to extubate because of poor oxygenation This 60-year-old gentleman with history of prior to coronary bypass surgery has been having difficulty with oxygenation. Patient has been on ventilator support. Patient had atrial fibrillation and flutter with a rapid ventricular response. Patient converted back to sinus rhythm, yesterday. He is maintaining sinus rhythm. He chest x-ray shows left-sided pleural effusion. Patient is sedated. It appears that patient is following commands and is fully awake. Attempts are being made to see if he can tolerate extubation. If not patient may require tracheostomy in the middle of the week. Patient is reexamined on 22 of November. Patient is still intubated. Patient apparently has generalized weakness and unable cough or take deep breaths. Patient is being taken off the sedation and another trial of CPAP will be tried. If patient fails, may need tracheostomy. Patient went back into flutter with rapid ventricular response. His blood pressure is low. He is going to be taken off the sedation. Once her blood pressure is more stable, will give IV Lopressor to control the heart rate. He is on IV amiodarone and also digoxin. Patient is on anticoagulation in the form of heparin. Patient is examined on November 23. Patient is still intubated. There are making attempts to see if he can be extubated. It appears that patient has been making more effort and seems to be gained some strength. If attempts fail tracheostomy may be considered within next 24 hours and patient has been having intermittent atrial fibrillation and episodes of hypotension. The dose of the Lopressor was cut back to 25 mg by mouth 3 times a day. Otherwise patient clinical status is stable. We'll follow Objective - Vital Signs Vital signs: Vital Signs Temp 102.1 F H 11/23/16 17:00 Pulse 81 11/23/16 20:31 Resp 23 11/23/16 19:00 BP 94/62 11/23/16 12:00 Pulse Ox 95 11/23/16 19:00 Intake & Output 11/23/16 11/23/16 11/24/16 06:59 18:59 06:59 Intake Total 1071 1826 43 Output Total 840 812 Balance 231 1014 43 Weight 101.6 kg Intake: IV 240 260 Sodium Chloride 0.9% 1, 240 260 000 ml @ 20 mls/hr IV . Q24H [facility] Rx#:[id number] Intake, IV Titration 100 1050 Amount Albumin Human 5% 250 ml 500 In Empty Bag 1 bag @ 250 mls/hr IVPB ONCE ONE Rx#: [id number] Heparin Sodium,Porcine/ 500 D5w Pmx 25,000 unit In Dextrose/Water 1 500ml. bag @ 10 UNITS/KG/HR 19. 98 mls/hr IV .Q24H [facility] Rx #:[id number] Propofol 500 mg In Empty 100 50 Bag 1 bag @ Titrate IV . Q0M [facility] Rx#:[id number] Tube Feeding 731 516 43 Output: Urine 840 812 Other: Voiding Method Indwelling Catheter Indwelling Catheter # Bowel Movements 1 ABP, PAP, CO, CI - Last Documented Arterial Blood Pressure 157/64 Pulmonary Artery Pressure 46/23 Cardiac Output 6.8 Cardiac Index 3.3 - Exam GENERAL EXAM: Patient is sleepy but arousable HEENT: Normocephalic. NECK: No masses, no nuchal rigidity. CHEST: No chest wall deformity. LUNGS: Breath sounds at bases HEART: S1 and S2 normal with no audible mumurs or gallops. Regular rhythm, femorals equal on both sides.. ABDOMEN: No hepatosplenomegaly, normal bowel sounds, no guarding or rigidity. SKIN: No rashes CENTRAL NERVOUS SYSTEM: Sedated EXTREMITIES: No cyanosis, clubbing or edema. - Labs CBC & Chem 7: 11/23/16 04:05 11/23/16 04:05 Labs: Abnormal Lab Results - Last 24 Hours (Table) 11/23/16 11/23/16 11/23/16 Range/Units 00:09 04:05 04:05 WBC 12.6 H (3.8-10.6) k/uL RBC 2.57 L (4.30-5.90) m/uL Hgb 8.5 L (13.0-17.5) gm/dL Hct 24.5 L (39.0-53.0) % Neutrophils # 10.8 H (1.3-7.7) k/uL PT 12.9 H (9.0-12.0) sec APTT (22.0-30.0) sec ABG pH (7.35-7.45) ABG pCO2 (35-45) mmHg ABG pO2 (83-108) mmHg Chloride (98-107) mmol/L Carbon Dioxide (22-30) mmol/L BUN (9-20) mg/dL Glucose (74-99) mg/dL POC Glucose (mg/dL) 100 H (75-99) mg/dL Calcium (8.4-10.2) mg/dL TSH (0.465-4.680) mIU/L 11/23/16 11/23/16 11/23/16 Range/Units 04:05 04:05 04:05 WBC (3.8-10.6) k/uL RBC (4.30-5.90) m/uL Hgb (13.0-17.5) gm/dL Hct (39.0-53.0) % Neutrophils # (1.3-7.7) k/uL PT (9.0-12.0) sec APTT 42.5 H (22.0-30.0) sec ABG pH (7.35-7.45) ABG pCO2 (35-45) mmHg ABG pO2 (83-108) mmHg Chloride 110 H (98-107) mmol/L Carbon Dioxide 21 L (22-30) mmol/L BUN 39 H (9-20) mg/dL Glucose 130 H (74-99) mg/dL POC Glucose (mg/dL) (75-99) mg/dL Calcium 7.8 L (8.4-10.2) mg/dL TSH 0.454 L (0.465-4.680) mIU/L 11/23/16 11/23/16 11/23/16 Range/Units 04:47 05:26 07:31 WBC (3.8-10.6) k/uL RBC (4.30-5.90) m/uL Hgb (13.0-17.5) gm/dL Hct (39.0-53.0) % Neutrophils # (1.3-7.7) k/uL PT (9.0-12.0) sec APTT (22.0-30.0) sec ABG pH 7.51 H (7.35-7.45) ABG pCO2 26 L (35-45) mmHg ABG pO2 79 L (83-108) mmHg Chloride (98-107) mmol/L Carbon Dioxide (22-30) mmol/L BUN (9-20) mg/dL Glucose (74-99) mg/dL POC Glucose (mg/dL) 157 H 143 H (75-99) mg/dL Calcium (8.4-10.2) mg/dL TSH (0.465-4.680) mIU/L 11/23/16 11/23/16 11/23/16 Range/Units 12:00 12:50 12:55 WBC (3.8-10.6) k/uL RBC (4.30-5.90) m/uL Hgb (13.0-17.5) gm/dL Hct (39.0-53.0) % Neutrophils # (1.3-7.7) k/uL PT (9.0-12.0) sec APTT 56.5 H (22.0-30.0) sec ABG pH (7.35-7.45) ABG pCO2 (35-45) mmHg ABG pO2 (83-108) mmHg Chloride (98-107) mmol/L Carbon Dioxide (22-30) mmol/L BUN (9-20) mg/dL Glucose (74-99) mg/dL POC Glucose (mg/dL) 141 H 189 H (75-99) mg/dL Calcium (8.4-10.2) mg/dL TSH (0.465-4.680) mIU/L 11/23/16 11/23/16 Range/Units 16:14 20:38 WBC (3.8-10.6) k/uL RBC (4.30-5.90) m/uL Hgb (13.0-17.5) gm/dL Hct (39.0-53.0) % Neutrophils # (1.3-7.7) k/uL PT (9.0-12.0) sec APTT (22.0-30.0) sec ABG pH (7.35-7.45) ABG pCO2 (35-45) mmHg ABG pO2 (83-108) mmHg Chloride (98-107) mmol/L Carbon Dioxide (22-30) mmol/L BUN (9-20) mg/dL Glucose (74-99) mg/dL POC Glucose (mg/dL) 133 H 143 H (75-99) mg/dL Calcium (8.4-10.2) mg/dL TSH (0.465-4.680) mIU/L Microbiology - Last 24 Hours (Table) 11/21/16 04:40 Gram Stain - Final Sputum Sputum Culture - Final Moraxella(branhamella) catarra 11/21/16 02:00 Blood Culture - Preliminary Blood No Growth after 48 hours 11/20/16 17:44 Urine Culture - Final Urine,Catheterized Klebsiella pneumoniae Assessment and Plan (1) Status post coronary artery bypass graft Status: Acute (2) Family history of heart disease Status: Acute (3) Hyperlipidemia Status: Acute (4) Hypertension Status: Acute (5) Nicotine dependence, chewing tobacco, uncomplicated Status: Acute (6) Atrial fibrillation Status: Acute Plan: Patient is a status post CABG. Having difficulty with oxygenation and has been intubated for long time. It appears that patient has developed generalized weakness and hasn't been showing good physical effort. However this seemed to be some encouragement and attempts were made again tomorrow. If patient fails to be extubated within 24 hours, the Evin is being planned. Low dose of beta erika to be continued to control Cardec arrhythmias along with amiodarone and digoxin. Patient is on heparin. Once the patient has been made regarding tracheostomy, patient will be started on by mouth anticoagulant agent
[2016-11-23] MEDS: SENNOSIDES-DOCUSATE SODIUM 1 EACH TAB PO SCH (22:40)
[2016-11-23] MEDS: hydrALAZINE HCL 20 MG/ML 1 ML VIAL IVP PRN (23:00)
[2016-11-24] MEDS: INSULIN LISPRO (humaLOG) 300 UNIT/3 ML VIAL SQ SCH ×7 (00:22→23:30)
[2016-11-24 00:24] LABS: Glucose,Whole Blood 170 mg/dL (75-99)
[2016-11-24] MEDS: IPRATROPIUM 0.5 MG/2.5 ML NEBU INHALATION SCH ×6 (03:12→23:21)
[2016-11-24] MEDS: LEVALBUTEROL NEB (CONC) 1.25 MG/0.5 ML AMP INHALATION SCH ×6 (03:13→23:21)
[2016-11-24 03:24] LABS: Glucose,Whole Blood 139 mg/dL (75-99)
[2016-11-24 04:32] LABS: Basophils # (A) 0.1 k/uL (0-0.2); Basophils % (A) 0 %; CH 32.4; CHCM 33.2; Eosinophils # (A) 0.1 k/uL (0-0.7); Eosinophils % (A) 1 %; HCT 24.2 % (39.0-53.0); HDW 2.72; HGB 7.9 gm/dL (13.0-17.5); Luc # (Auto) 0.15; Luc % (Auto) 1; Lymphocytes # (A) 1.5 k/uL (1.0-4.8); Lymphocytes % (A) 8 %; MCHC 32.6 g/dL (31.0-37.0); MCV 98.2 fL (80.0-100.0); Mean Platelet Volume 8.2; Monocytes # (A) 0.5 k/uL (0-1.0); Monocytes % (A) 3 %; Neutrophils # (A) 16.9 k/uL (1.3-7.7); Neutrophils % (A) 88 %; RBC 2.46 m/uL (4.30-5.90); RDW 14.4 % (11.5-15.5); WBC 19.2 k/uL (3.8-10.6); WBC (Perox) 19.35
[2016-11-24 04:42] LABS: INR 1.4 (<1.1); Partial Thromboplastin Time 65.6 sec (22.0-30.0); Prothrombin Time 13.5 sec (9.0-12.0)
[2016-11-24 05:13] LABS: Anion Gap 13 mmol/L; Blood Urea Nitrogen 44 mg/dL (9-20); Calcium 8.1 mg/dL (8.4-10.2); Carbon Dioxide 21 mmol/L (22-30); Chloride 109 mmol/L (98-107); Glucose 125 mg/dL (74-99); Magnesium 2.5 mg/dL (1.6-2.3); Non-African American GFR(MDRD) >60 (>60 ml/min/1.73 sqM); Phosphorous 3.4 mg/dL (2.5-4.5); Sodium 143 mmol/L (137-145)
[2016-11-24 05:21] LABS: Potassium 2.9 mmol/L (3.5-5.1)
[2016-11-24] MEDS ORDERED: Potassium Replacement Protocol 1 EACH MISC MISCELLANE PRN (05:21)
[2016-11-24 05:42] LABS: ABG Base Excess -2.4 mmol/L; ABG HCO3 21 mmol/L (21-25); ABG PCO2 30 mmHg (35-45); ABG PH 7.46 (7.35-7.45); ABG PO2 108 mmHg (83-108); ABG TCO2 22 mmol/L (19-24)
[2016-11-24] MEDS: POTASSIUM CHLORIDE ORAL LIQUID 40 MEQ/30 ML CUP NG-TUBE SCH ×3 (06:04→06:22)
--- NOTE | 2016-11-24 07:18 | XR ---
EXAMINATION TYPE: XR chest 1V portable DATE OF EXAM: 11/24/2016 6:33 AM Comparison: 11/23/2016 Clinical History: 61-year-old male on mechanical ventilator Findings: ET tube and NG tube remain in place. Left PICC tip in the right atrium. Median sternotomy wires are p resent. Heart remains mild to moderately enlarged. On vasculature appear within normal limits. Continued smal l left pleural effusion with prominent left basilar and retrocardiac opacity. Impression: 1. Stable [id number] cardiomegaly. 2. Continued small left effusion with prominent left basilar and retrocardiac consolidation and/or at electasis.
--- NOTE | 2016-11-24 07:23 | XR ---
EXAMINATION TYPE: XR abdomen 1V DATE OF EXAM: 11/24/2016 6:33 AM CLINICAL DATA: 61-year-old male with distended abdomen, [facility] COMPARISON: None FINDINGS: Chest is reported separately. Supine imaging limited for assessment of free air. Diffusely air distended colon, mildly dilated at the level of the hepatic flexure at 9.8 cm. No defin ite dilated small bowel loops seen. IMPRESSION: 1. Supine imaging limited for assessment of free air. 2. Diffusely air distended colon with some segments dilated up to 9.8 cm. Diffuse colonic ileus is fa vored. Distal colonic obstruction considered unlikely given the lack of significant stool. 3. No evidence for small bowel obstruction.
[2016-11-24] MEDS: BUDESONIDE 1 MG/2 ML NEBU INHALATION SCH ×2 (07:34→19:09)
[2016-11-24] MEDS ORDERED: METOCLOPRAMIDE 5 MG/ML 2 ML VIAL IVP STA (07:54)
[2016-11-24 07:58] LABS: Glucose,Whole Blood 132 mg/dL (75-99)
[2016-11-24] MEDS: ATORVASTATIN 40 MG TAB PO SCH (08:45)
[2016-11-24] MEDS: ASPIRIN 325 MG TAB PO SCH (08:45)
[2016-11-24] MEDS: AMIODARONE 200 MG TAB PO SCH ×2 (08:45→21:16)
[2016-11-24] MEDS: CHLORHEXIDINE GLUCONATE 15 ML CUP MUCOUS MEM SCH ×2 (08:45→21:10)
[2016-11-24] MEDS: DIGOXIN 250 MCG TAB OG-TUBE SCH (08:45)
[2016-11-24] MEDS: PANTOPRAZOLE 40 MG/10 ML VIAL IVP SCH (08:46)
[2016-11-24] MEDS: METOPROLOL TARTRATE 25 MG TAB PO SCH ×2 (08:46→21:16)
[2016-11-24] MEDS: HEPARIN SODIUM,PORCINE/D5W PMX 25,000 UNIT in DEXTROSE/WATER 1 500ML.BAG IV SCH (08:47)
[2016-11-24] MEDS: THIAMINE 100 MG TAB PO SCH ×2 (08:47→21:18)
[2016-11-24] MEDS: D5-0.45% NACL WITH KCL 20MEQ/L 1,000 ML IV SCH (08:48)
[2016-11-24] MEDS ORDERED: MORPHINE SULFATE 2 MG/ML SYRINGE IVP PRN (11:40)
--- NOTE | 2016-11-24 11:48 | XR ---
EXAMINATION TYPE: XR chest 1V portable DATE OF EXAM: 11/24/2016 11:24 AM Comparison: Earlier today Clinical History: 61-year-old male NG tube placement Findings: Limited exam due to excessively lordotic positioning. Left PICC tip within the right atrium. Median sternotomy wires. Cardiomegaly and small left effusion with retrocardiac and left basilar opacity. NG tube appears to course into the stomach. However, it then loops around with tip near the location of the GE junction. Impression: 1. NG tube placed and courses below the diaphragms but then appears to loop around with tip close to the region of the GE junction. 2. Lordotic exam is otherwise stable.
[2016-11-24 12:08] LABS: Glucose,Whole Blood 175 mg/dL (75-99)
[2016-11-24] MEDS: LISINOPRIL 10 MG TAB PO SCH ×2 (12:22→21:16)
[2016-11-24] MEDS: hydrALAZINE HCL 20 MG/ML 1 ML VIAL IVP PRN (12:22)
[2016-11-24] MEDS: SODIUM CHLORIDE 0.9% 1,000 ML IV SCH (12:22)
[2016-11-24] MEDS: LACTULOSE 20 GM/30 ML CUP PO SCH (12:22)
[2016-11-24] MEDS: MULTIVITAMINS, THERA LIQUID 237 ML BOTTLE PO SCH (12:23)
--- NOTE | 2016-11-24 14:02 | P.PN ---
Subjective 61-year-old male patient with status post carotid bypass surgery and the patient is postop day #11. The patient has failed to wean off the mechanical ventilator. Immediately postop the patient had pulmonate complications including mucous plugs and atelectasis of the left lung. He required bronchoscopy and therapeutic airway suctioning and all of the respiratory cultures came back negative. This morning, the patient was on a volume cycled assist-control mode of ventilation at the rate of 20, tidal volume 450, FiO2 of 40% and a PEEP of 5. I reviewed the blood gases and I reviewed also the chest x -ray. I noted that the patient was unable to tolerate assist-control mode. Attempts to wean him off the sedation Emily as the patient was becoming restless and a successful the mechanical ventilator. Based on this, I switched this patient to a pressure support mode of ventilation and I was able to completely wean him off sedation. He was wide awake all he was hardly able to wiggle his toes or move his fingers and he was unable to raise his had or arms against gravity. He was having copious amount of rest or secretions and he was requiring frequent suctioning. At a later stage, switch this patient to a pressure control mode of ventilation with a PEEP of 7 and a pressure control of 20 and his FiO2 was At 60%. He remains hemodynamically stable. He is producing adequate amount of urine output. No pressors at this point. No fever. No chills. Chest tubes have been all removed. He is tolerating tube feeds. Atelectatic discussion with the cardiothoracic surgeon and will plan to proceed with a PEG and trach if the patient ultimately failed weaning. 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 On 11/22/2016 the patient remains intubated on a mechanical ventilator. I was able to the sedation completely on the patient. He is awake at this point and he had been awake throughout the night. He is following simple commands. Motor functions are nearly absent. The patient is extremely weak. He can wiggle his toes and occasionally bend his knees. Otherwise he cannot raise his arms and legs against gravity. He has a cough reflex. He can blink his eyes and raises eyebrows. Reflexes are significantly diminished in the upper and lower extremities bilaterally. Is on a pressure control mode of ventilation at the rate of 18, PC 18, PEEP of 7 and FiO2 of 50%. Still having significant respiratory secretions through the orotracheal tube. The chest x-ray from today shows moderate parenchymal opacity within the left lung base and the right lung base. There is some atelectatic changes in the lung bases more so on the left. The patient has also postop changes related to coronary artery bypass surgery. No fever. No chills. Hemodynamically stable. Producing adequate amount of urine output and the patient was diuresis with a combination of albumin and Lasix. He is on tube feeds. On 11/23/2016 the patient remains on a mechanical ventilator. Seems to be much more awake compared to yesterday. Motor functions remain weak over the patient is doing more activity and movement on today's evaluation. We were able to bring the patient is sitting up position for a total of 2 hours today. He tolerated well and following that he had a coughing spells and he had to be placed in bed. He remains in the same vent setting with a pressure control of 18, PEEP of 7, FiO2 of 50% and rate of 18. Chest x-ray shows adequate expansion of the left lung with a few being in good location. Sputum analysis showed Moraxella catarrhalis and the based on that the patient was started on Levaquin. Note that he had also Klebsiella PNEUMONIA IN HIS URINE, AND BOTH OF THESE MICROORGANISMS SHOULD RESPOND TO LEVAQUIN. Meanwhile, the patient is receiving enteral feeding for nutritional support. IV Solu Medrol is been discontinued. We'll doing daily physical therapy and passive range of motion. He remains on IV heparin. He remains on IV insulin for blood sugar control. Morning blood gases showed a pH of 7.51 with a pCO2 of 26 and pO2 of 79. Weaning parameters are still poor as the patient has rapid shallow breathing index around 120 and the patient becomes tachypneic and the LOW tidal volumes. On 11/24/2016 the patient is being seen in follow-up. Earlier this morning the patient was still mechanical ventilator on a pressure control mode. Chest x- ray from earlier this morning showed no significant abnormalities. There was improvement in aeration in lung bases bilaterally especially on the left. NG tube was still in a good location below the diaphragm. Meanwhile affect abdominal film was done this morning and that showed a component of ileus. Note that overnight, the patient's tube feeds were discontinued knowing that he had 2 bouts of emesis. Nevertheless, despite ongoing gastrointestinal abnormalities, the patient is doing very well while being on mechanical ventilator and is awake and alert. We checked his weaning parameters this morning and the numbers looked very well. He was given a pressure support of 5 and PEEP of 5 and a breathing trial for a total of 30 minutes and following that we made a decision to extubate this patient. This was a difficult decision to make knowing that the patient had an underlying abdominal ileus and he is still having significant motor weakness in the upper and lower extremities. Nevertheless, I noted that his motor function is improved his cough improved and he had very decent weaning parameters. I suspected that this will be his last chance of being extubated and if not successful, he will need a PEG and trach with the next 24 hours. Based on this, I extubated this patient. He remains on IV heparin. He remains on IV insulin. He is also on Levaquin. He is afebrile. He is awake and following commands. Motor function is gradually improving. No other new complaints otherwise for now. Noted post extubation, the patient was placed on 5 L of oxygen nasal cannula with saturation of 94-95%. He continued to bleed comfortably. He was placed in sitting up position in ICU. Objective - Vital Signs Vital signs: Vital Signs Temp 98.2 F 11/24/16 12:00 Pulse 76 11/24/16 12:30 Resp 42 H 11/24/16 12:30 BP 94/62 11/23/16 12:00 Pulse Ox 95 11/24/16 12:30 Intake & Output 11/23/16 11/24/16 11/24/16 18:59 06:59 18:59 Intake Total 1826 998 340 Output Total 812 1185 270 Balance 1014 -187 70 Weight 100.3 kg 100.3 kg Intake: IV 260 240 20 Sodium Chloride 0.9% 1, 260 240 20 000 ml @ 20 mls/hr IV . Q24H [facility] Rx#:[id number] Intake, IV Titration 1050 500 320 Amount Albumin Human 5% 250 ml 500 In Empty Bag 1 bag @ 250 mls/hr IVPB ONCE ONE Rx#: [id number] D5-0.45% NaCl with KCl 320 20Meq/l 1,000 ml @ 80 mls /hr IV .[id number] [facility] Rx#: [id number] Heparin Sodium,Porcine/ 500 500 D5w Pmx 25,000 unit In Dextrose/Water 1 500ml. bag @ 10 UNITS/KG/HR 19. 98 mls/hr IV .Q24H [facility] Rx #:[id number] Propofol 500 mg In Empty 50 Bag 1 bag @ Titrate IV . Q0M [facility] Rx#:[id number] Tube Feeding 516 258 0 Output: Urine 812 1185 270 Other: Voiding Method Indwelling Catheter Indwelling Catheter # Bowel Movements 1 1 ABP, PAP, CO, CI - Last Documented Arterial Blood Pressure 152/40 Pulmonary Artery Pressure 46/23 Cardiac Output 6.8 Cardiac Index 3.3 - Exam Head exam was generally normal. There was no scleral icterus or corneal arcus. Mucous membranes were moist.Neck was supple and without jugular venous distension, thyromegaly, or carotid bruits. Carotids were easily palpable bilaterally. There was no adenopathy. The patient has an NG tube in place and the patient has no stridor. He has some degree of crowding of the posterior oropharynx. Mucosal membranes are dry. Lung sounds are diminished in lung bases bilaterally otherwise clear. Heart sounds are regular, positive S1-S2, no cervical murmurs appreciated and sternum stable clean and intact. Abdomen is slightly distended. This positive tympany. Bowel sounds are hypoactive. There is no direct tenderness. No rebound tensile guarding.Examination of the extremities revealed easily palpable radial, femoral and pedal pulses. There was no cyanosis, clubbing or edema. Neurologically, the patient is awake and alert. He is, indicating. No focal neurological deficit. Motor function is extremely weak overall improved compared to yesterday. - Labs CBC & Chem 7: 11/24/16 04:25 11/24/16 11:28 Labs: Abnormal Lab Results - Last 24 Hours (Table) 11/23/16 11/23/16 11/24/16 Range/Units 16:14 20:38 00:22 WBC (3.8-10.6) k/uL RBC (4.30-5.90) m/uL Hgb (13.0-17.5) gm/dL Hct (39.0-53.0) % Neutrophils # (1.3-7.7) k/uL PT (9.0-12.0) sec APTT (22.0-30.0) sec ABG pH (7.35-7.45) ABG pCO2 (35-45) mmHg ABG O2 Saturation (94-97) % Potassium (3.5-5.1) mmol/L Chloride (98-107) mmol/L Carbon Dioxide (22-30) mmol/L BUN (9-20) mg/dL Glucose (74-99) mg/dL POC Glucose (mg/dL) 133 H 143 H 170 H (75-99) mg/dL Calcium (8.4-10.2) mg/dL Magnesium (1.6-2.3) mg/dL 11/24/16 11/24/16 11/24/16 Range/Units 03:22 04:25 04:25 WBC 19.2 H (3.8-10.6) k/uL RBC 2.46 L (4.30-5.90) m/uL Hgb 7.9 L (13.0-17.5) gm/dL Hct 24.2 L (39.0-53.0) % Neutrophils # 16.9 H (1.3-7.7) k/uL PT 13.5 H (9.0-12.0) sec APTT 65.6 H (22.0-30.0) sec ABG pH (7.35-7.45) ABG pCO2 (35-45) mmHg ABG O2 Saturation (94-97) % Potassium (3.5-5.1) mmol/L Chloride (98-107) mmol/L Carbon Dioxide (22-30) mmol/L BUN (9-20) mg/dL Glucose (74-99) mg/dL POC Glucose (mg/dL) 139 H (75-99) mg/dL Calcium (8.4-10.2) mg/dL Magnesium (1.6-2.3) mg/dL 11/24/16 11/24/16 11/24/16 Range/Units 04:25 05:19 07:56 WBC (3.8-10.6) k/uL RBC (4.30-5.90) m/uL Hgb (13.0-17.5) gm/dL Hct (39.0-53.0) % Neutrophils # (1.3-7.7) k/uL PT (9.0-12.0) sec APTT (22.0-30.0) sec ABG pH 7.46 H (7.35-7.45) ABG pCO2 30 L (35-45) mmHg ABG O2 Saturation 99.0 H (94-97) % Potassium 2.9 L* (3.5-5.1) mmol/L Chloride 109 H (98-107) mmol/L Carbon Dioxide 21 L (22-30) mmol/L BUN 44 H (9-20) mg/dL Glucose 125 H (74-99) mg/dL POC Glucose (mg/dL) 132 H (75-99) mg/dL Calcium 8.1 L (8.4-10.2) mg/dL Magnesium 2.5 H (1.6-2.3) mg/dL 11/24/16 Range/Units 12:04 WBC (3.8-10.6) k/uL RBC (4.30-5.90) m/uL Hgb (13.0-17.5) gm/dL Hct (39.0-53.0) % Neutrophils # (1.3-7.7) k/uL PT (9.0-12.0) sec APTT (22.0-30.0) sec ABG pH (7.35-7.45) ABG pCO2 (35-45) mmHg ABG O2 Saturation (94-97) % Potassium (3.5-5.1) mmol/L Chloride (98-107) mmol/L Carbon Dioxide (22-30) mmol/L BUN (9-20) mg/dL Glucose (74-99) mg/dL POC Glucose (mg/dL) 175 H (75-99) mg/dL Calcium (8.4-10.2) mg/dL Magnesium (1.6-2.3) mg/dL Microbiology - Last 24 Hours (Table) 11/10/16 16:40 Acid Fast Bacilli Smear - Final Lung - Right Acid Fast Bacilli Culture - Preliminary 11/21/16 02:00 Blood Culture - Preliminary Blood No Growth after 72 hours Assessment and Plan Plan: Assessment 1 Coronary artery disease status post carotid bypass surgery and the patient is postop day #14 2 prolonged postoperative ventilator-dependent history failure, multifactorial. The active issue for now as the significant neuromuscular weakness that has complicated the patient's recovery. On 11/23/2016 the patient remains on a pressure control mode of ventilation. Weaning parameters are weak. The patient has profound neuromuscular weakness which is the main obstacle to hours further weaning. On 11/24/2016, the patient was extubated with the above-mentioned concerns. . There is a chest and the patient may fail extubation based on the fact that he still weak and he has an abdominal ileus which probably may affect his breathing. As such, we would monitor this patient very closely in the intensive care unit and consider reintubation if he fails and proceed with a PEG and trach in a.m. if he is unable to tolerate extubation. 3 recurrent mucous plugs with excessive respiratory secretions requiring bronchoscopy and a peak airway suctioning and a bronchoscopy cultures came back negative for any microbial growth The most recent sputum analysis showing Moraxella catarrhalis and the patient is currently on Levaquin. 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 Plan Monitor the patient closely in the intensive care unit. Consider reintubation if he failed extubation. There is a concern that the patient may fill based on the fact that he is still having significant neuromuscular weakness and he has developed a colonic ileus. Stop tube feeds for now. He was given Reglan. Give Colace. Continue the rest of the supportive care. We'll proceed with a PEG and trach if the patient fails this extubation. He is being monitored very closely is in the intensive care unit. We'll continue to follow make further recommendations based on his progress. The case was discussed with the cardiothoracic surgeon. Evaluation was done in 40 minutes. Time with Patient: Greater than 30
[2016-11-24] MEDS: POTASSIUM CHLORIDE 10 MEQ in WATER FOR INJECTION 1 100ML.BAG IVPB SCH ×4 (14:35→23:26)
--- NOTE | 2016-11-24 15:17 | P.PN ---
Subjective Principal diagnosis: Status post CABG, respiratory failure, atrial fibrillation and inability to extubate because of poor oxygenation This is a 60-year-old gentleman who is status post prior to coronary bypass surgery. Patient had a prolonged stay in ICU on mechanical ventilator support. He is also had some neuromuscular weakness. Today patient was extubated and so far he seems to be tolerating. He did develop some ileus and abdominal distention. Patient does have all sounds and having some stools. His potassium was low in the morning but it is supplemented. Is a concern that if he continues to this problem. Patient may require reintubation. At this time. Patient is maintaining sinus rhythm. We'll continue his current medical therapy. Tube Feeding is held for now Objective - Vital Signs Vital signs: Vital Signs Temp 98.2 F 11/24/16 12:00 Pulse 70 11/24/16 14:00 Resp 14 11/24/16 14:00 BP 94/62 11/23/16 12:00 Pulse Ox 98 11/24/16 14:00 Intake & Output 11/23/16 11/24/16 11/24/16 18:59 06:59 18:59 Intake Total 1826 998 500 Output Total 812 1185 450 Balance 1014 -187 50 Weight 100.3 kg 100.3 kg Intake: IV 260 240 20 Sodium Chloride 0.9% 1, 260 240 20 000 ml @ 20 mls/hr IV . Q24H [facility] Rx#:[id number] Intake, IV Titration 1050 500 480 Amount Albumin Human 5% 250 ml 500 In Empty Bag 1 bag @ 250 mls/hr IVPB ONCE ONE Rx#: [id number] D5-0.45% NaCl with KCl 480 20Meq/l 1,000 ml @ 80 mls /hr IV .[id number] [facility] Rx#: [id number] Heparin Sodium,Porcine/ 500 500 D5w Pmx 25,000 unit In Dextrose/Water 1 500ml. bag @ 10 UNITS/KG/HR 19. 98 mls/hr IV .Q24H [facility] Rx #:[id number] Propofol 500 mg In Empty 50 Bag 1 bag @ Titrate IV . Q0M [facility] Rx#:[id number] Tube Feeding 516 258 0 Output: Urine 812 1185 450 Other: Voiding Method Indwelling Catheter Indwelling Catheter # Bowel Movements 1 1 ABP, PAP, CO, CI - Last Documented Arterial Blood Pressure 138/50 Pulmonary Artery Pressure 46/23 Cardiac Output 6.8 Cardiac Index 3.3 - Exam GENERAL EXAM: Patient is more alert HEENT: Normocephalic. NECK: No masses, no nuchal rigidity. CHEST: No chest wall deformity. LUNGS: Breath sounds at bases HEART: S1 and S2 normal with no audible mumurs or gallops. Regular rhythm, femorals equal on both sides.. ABDOMEN: Distended and tympanic. Bowel sounds are present. SKIN: No rashes CENTRAL NERVOUS SYSTEM: Sedated EXTREMITIES: No cyanosis, clubbing or edema. - Labs CBC & Chem 7: 11/24/16 04:25 11/24/16 11:28 Labs: Abnormal Lab Results - Last 24 Hours (Table) 11/23/16 11/23/16 11/24/16 Range/Units 16:14 20:38 00:22 WBC (3.8-10.6) k/uL RBC (4.30-5.90) m/uL Hgb (13.0-17.5) gm/dL Hct (39.0-53.0) % Neutrophils # (1.3-7.7) k/uL PT (9.0-12.0) sec APTT (22.0-30.0) sec ABG pH (7.35-7.45) ABG pCO2 (35-45) mmHg ABG O2 Saturation (94-97) % Potassium (3.5-5.1) mmol/L Chloride (98-107) mmol/L Carbon Dioxide (22-30) mmol/L BUN (9-20) mg/dL Glucose (74-99) mg/dL POC Glucose (mg/dL) 133 H 143 H 170 H (75-99) mg/dL Calcium (8.4-10.2) mg/dL Magnesium (1.6-2.3) mg/dL 11/24/16 11/24/16 11/24/16 Range/Units 03:22 04:25 04:25 WBC 19.2 H (3.8-10.6) k/uL RBC 2.46 L (4.30-5.90) m/uL Hgb 7.9 L (13.0-17.5) gm/dL Hct 24.2 L (39.0-53.0) % Neutrophils # 16.9 H (1.3-7.7) k/uL PT 13.5 H (9.0-12.0) sec APTT 65.6 H (22.0-30.0) sec ABG pH (7.35-7.45) ABG pCO2 (35-45) mmHg ABG O2 Saturation (94-97) % Potassium (3.5-5.1) mmol/L Chloride (98-107) mmol/L Carbon Dioxide (22-30) mmol/L BUN (9-20) mg/dL Glucose (74-99) mg/dL POC Glucose (mg/dL) 139 H (75-99) mg/dL Calcium (8.4-10.2) mg/dL Magnesium (1.6-2.3) mg/dL 11/24/16 11/24/16 11/24/16 Range/Units 04:25 05:19 07:56 WBC (3.8-10.6) k/uL RBC (4.30-5.90) m/uL Hgb (13.0-17.5) gm/dL Hct (39.0-53.0) % Neutrophils # (1.3-7.7) k/uL PT (9.0-12.0) sec APTT (22.0-30.0) sec ABG pH 7.46 H (7.35-7.45) ABG pCO2 30 L (35-45) mmHg ABG O2 Saturation 99.0 H (94-97) % Potassium 2.9 L* (3.5-5.1) mmol/L Chloride 109 H (98-107) mmol/L Carbon Dioxide 21 L (22-30) mmol/L BUN 44 H (9-20) mg/dL Glucose 125 H (74-99) mg/dL POC Glucose (mg/dL) 132 H (75-99) mg/dL Calcium 8.1 L (8.4-10.2) mg/dL Magnesium 2.5 H (1.6-2.3) mg/dL 11/24/16 Range/Units 12:04 WBC (3.8-10.6) k/uL RBC (4.30-5.90) m/uL Hgb (13.0-17.5) gm/dL Hct (39.0-53.0) % Neutrophils # (1.3-7.7) k/uL PT (9.0-12.0) sec APTT (22.0-30.0) sec ABG pH (7.35-7.45) ABG pCO2 (35-45) mmHg ABG O2 Saturation (94-97) % Potassium (3.5-5.1) mmol/L Chloride (98-107) mmol/L Carbon Dioxide (22-30) mmol/L BUN (9-20) mg/dL Glucose (74-99) mg/dL POC Glucose (mg/dL) 175 H (75-99) mg/dL Calcium (8.4-10.2) mg/dL Magnesium (1.6-2.3) mg/dL Microbiology - Last 24 Hours (Table) 11/10/16 16:40 Acid Fast Bacilli Smear - Final Lung - Right Acid Fast Bacilli Culture - Preliminary 11/21/16 02:00 Blood Culture - Preliminary Blood No Growth after 72 hours Assessment and Plan (1) Status post coronary artery bypass graft Status: Acute (2) Family history of heart disease Status: Acute (3) Hyperlipidemia Status: Acute (4) Hypertension Status: Acute (5) Nicotine dependence, chewing tobacco, uncomplicated Status: Acute (6) Atrial fibrillation Status: Acute Plan: Patient is extubated and alert and oriented and following commands. Patient has ileus that is being addressed. Patient is maintaining sinus rhythm. Tube feeding is being held. Continue the rest of the medication
--- NOTE | 2016-11-24 15:27 | XR ---
EXAMINATION TYPE: XR abdomen 2V DATE OF EXAM: 11/24/2016 3:11 PM CLINICAL DATA: 61-year-old male with abdominal distention, [facility] COMPARISON: Earlier today FINDINGS: Retrocardiac and left basilar opacity is redemonstrated. NG tube is partially obscured by motion celine fact. There appears to be progressive distention at the level of the right hemicolon now measuring up to 11.9 cm versus 9.8 cm, earlier today. IMPRESSION: Diffuse gaseous distention of the colon redemonstrated. There is progressive dilatation at the right hemicolon now measuring up to 11.9 cm versus 9.8 cm, previously.
[2016-11-24] MEDS ORDERED: methylPREDNISolone SOD SUCCI 125 MG/2 ML VIAL IV STA (16:08)
--- NOTE | 2016-11-24 16:46 | P.PN ---
<Madhu Brush Jose - Last Filed: 11/24/16 16:46> Progress Note - Text CV Surgery Nursing Principal diagnosis: Coronary artery disease, status post prior stenting to his right coronary artery. Preserved left ventricular function. Hyperlipidemia. Hypertension. ETOH abuse. POD #14 total arterial non-aortic patch off-pump double coronary artery bypass grafting using in situ skeletonized right internal mammary artery to the left anterior descending artery across the anterior midline in situ totally skeletonized left internal mammary artery to the first obtuse marginal artery. Intraoperative transesophageal echocardiogram and epi-aortic scanning. Intraoperative graft flow measurements using the [employer] system POD #14 ,Patient had postoperative mucous plugging with increasing oxygen demand requiring bronchoscopy the night of surgery. Bronchial washings negative for bacteria/viruses to date. Pt developed postoperative alcohol withdrawal requiring increased sedation and continued mechanical ventilation. He remains with mechanical ventilator support, he is alert and following some simple commands. Still remains with generalized weakness, although moving his upper and lower extremities more so today. He is shaking his head appropriately to yes and no questions. Vital Signs: Afebrile Vital Signs - 24 hr 11/23/16 11/23/16 11/23/16 11:16 11:33 12:00 Temperature 100.0 F H Pulse Rate 80 90 88 Respiratory 25 H Rate Blood Pressure 94/62 O2 Sat by Pulse 94 L Oximetry 11/23/16 11/23/16 11/23/16 13:00 14:00 15:00 Temperature Pulse Rate 131 H 120 H 122 H Respiratory 27 H 26 H 31 H Rate Blood Pressure O2 Sat by Pulse 95 96 96 Oximetry 11/23/16 11/23/16 11/23/16 16:00 17:00 17:16 Temperature 102.1 F H Pulse Rate 79 79 82 Respiratory 23 25 H Rate Blood Pressure O2 Sat by Pulse 95 94 L Oximetry 11/23/16 11/23/16 11/23/16 17:33 18:00 19:00 Temperature Pulse Rate 95 88 89 Respiratory 29 H 23 Rate Blood Pressure O2 Sat by Pulse 95 95 Oximetry 11/23/16 11/23/16 11/23/16 20:00 20:20 20:31 Temperature 99.5 F Pulse Rate 77 80 81 Respiratory 19 Rate Blood Pressure O2 Sat by Pulse 95 Oximetry 11/23/16 11/23/16 11/23/16 21:00 22:00 23:00 Temperature Pulse Rate 75 71 73 Respiratory 20 21 20 Rate Blood Pressure O2 Sat by Pulse 97 97 97 Oximetry 11/23/16 11/23/16 11/23/16 23:31 23:41 23:42 Temperature Pulse Rate 74 76 77 Respiratory 24 Rate Blood Pressure O2 Sat by Pulse 96 Oximetry 11/23/16 11/24/16 11/24/16 23:47 00:00 01:00 Temperature 99 F Pulse Rate 72 68 Respiratory 21 18 Rate Blood Pressure O2 Sat by Pulse 97 97 96 Oximetry 11/24/16 11/24/16 11/24/16 02:00 03:00 03:10 Temperature Pulse Rate 69 71 Respiratory 24 25 H Rate Blood Pressure O2 Sat by Pulse 97 97 97 Oximetry 11/24/16 11/24/16 11/24/16 03:11 03:13 03:28 Temperature Pulse Rate 68 69 Respiratory 25 H Rate Blood Pressure O2 Sat by Pulse Oximetry 11/24/16 11/24/16 11/24/16 04:00 05:00 06:00 Temperature Pulse Rate 68 68 69 Respiratory 16 24 30 H Rate Blood Pressure O2 Sat by Pulse 98 97 99 Oximetry 11/24/16 11/24/16 11/24/16 07:00 07:41 08:00 Temperature 98.1 F Pulse Rate 69 60 64 Respiratory 25 H 21 Rate Blood Pressure O2 Sat by Pulse 97 98 Oximetry 11/24/16 11/24/16 11/24/16 08:05 09:00 09:30 Temperature Pulse Rate 67 70 71 Respiratory 20 20 Rate Blood Pressure O2 Sat by Pulse 98 99 Oximetry 11/24/16 11/24/16 10:00 10:30 Temperature Pulse Rate 63 65 Respiratory 23 18 Rate Blood Pressure O2 Sat by Pulse 99 98 Oximetry ABP, PAP, CO, CI - Last 8 Hours Arterial Blood Pressure 140/54 Arterial Blood Pressure 123/76 Arterial Blood Pressure 176/70 Arterial Blood Pressure 173/68 Arterial Blood Pressure 145/64 Arterial Blood Pressure 126/54 Arterial Blood Pressure 127/51 Arterial Blood Pressure 127/51 Arterial Blood Pressure 121/53 Labs: Short CBC 11/24/16 Range/Units 04:25 WBC 19.2 H (3.8-10.6) k/uL Hgb 7.9 L (13.0-17.5) gm/dL Hct 24.2 L (39.0-53.0) % Plt Count 280 (150-450) k/uL Neutrophils # 16.9 H (1.3-7.7) k/uL BMP 11/24/16 04:25 Sodium 143 Potassium 2.9 L* Chloride 109 H Carbon Dioxide 21 L BUN 44 H Creatinine 1.11 Glucose 125 H Calcium 8.1 L ABG ABG pH 7.46 (7.35-7.45) H 11/24/16 05:19 ABG pCO2 30 mmHg (35-45) L 11/24/16 05:19 ABG pO2 108 mmHg (83-108) 11/24/16 05:19 ABG O2 Saturation 99.0 % (94-97) H 11/24/16 05:19 PT/INR, D-dimer PT 13.5 sec (9.0-12.0) H 11/24/16 04:25 INR 1.4 (<1.1) 11/24/16 04:25 Microbiology 11/10/16 16:40 Lung - Right Acid Fast Bacilli Smear - Final 11/10/16 16:40 Lung - Right Acid Fast Bacilli Culture - Preliminary 11/21/16 02:00 Blood Blood Culture - Preliminary No Growth after 72 hours 11/21/16 04:40 Sputum Gram Stain - Final 11/21/16 04:40 Sputum Sputum Culture - Final Moraxella(branhamella) catarra 11/20/16 17:44 Urine,Catheterized Urine Culture - Final Klebsiella pneumoniae 11/10/16 16:40 Lung - Right Fungal Culture - Preliminary Rhiannon tropicalis 11/10/16 16:40 Lung Aspirate - Right Gram Stain - Final 11/10/16 16:40 Lung Aspirate - Right Bronchial Washings Culture - Final IV Fluids: 0.9% normal saline at 20 mL/h Heparin drip at 14 units per kilogram per hour. Diprivan drip is on hold at this time in in anticipation for possible extubation. Lungs: Few scattered rhonchi throughout, diminished bilateral bases. Respirations are unlabored and symmetrical with mechanical ventilator support. Current ventilator settings are as follows: AC 20, pressure control 18/0.82, FiO2 45%, PEEP 7. Intake adjacent O2 sat: 98% with mechanical ventilator support, current FiO2 setting is at 45%. Heart: S1S2, Regular rhythm and rate, negative for S3, gallop or murmur. Bedside telemetry showing normal sinus rhythm heart rate 68. Sternum stable, chest incision clean with dressing clean and dry. no drainage noted. Heart hugger in place. Knee-high CEZAR hose and sequential compression devices in place to bilateral lower extremities. Abdomen: Soft, distended, Positive bowel sounds present in all 4 quadrants, patient has had 3 bowel movements in the last 24 hours. NG tube in place, 600 mL of drainage out in the last 8 hours. Emesis 2 reported from the nurse, NG tube placed. CBGs: 110-143 mg/dL in the last 24 hours. U/O: Adequate, Tay catheter for accurate I&O, 635 mL output in the last 8 hours. 24 hr Total: Intake & Output 11/22/16 11/23/16 11/24/16 11/25/16 06:59 06:59 06:59 06:59 Intake Total 1004.148 6827.230 2824 260 Output Total 2470 1790 1997 210 Balance -937.612 723.230 827 50 Weight 100.5 kg 101.6 kg 100.3 kg 100.3 kg Active Medications Hydrocodone Bitart/Acetaminophen (Newell 5-325) 2 each PO Q4HR PRN PRN Reason: Severe Pain Last Admin: 11/23/16 11:21 Dose: 2 each Hydrocodone Bitart/Acetaminophen (Newell 5-325) 1 each PO Q4HR PRN PRN Reason: Moderate Pain Amiodarone HCl (Cordarone) 200 mg PO BID [facility] Last Admin: 11/24/16 08:45 Dose: 200 mg Aspirin (Aspirin) 325 mg PO DAILY [facility] Last Admin: 11/24/16 08:45 Dose: 325 mg Atorvastatin Calcium (Lipitor) 40 mg PO DAILY [facility] Last Admin: 11/24/16 08:45 Dose: 40 mg Benzocaine (Hurricaine Floral) 1 applic MUCOUS MEM QID PRN PRN Reason: Mouth Irritation Last Admin: 11/14/16 11:36 Dose: 1 applic Benzocaine/Menthol (Cepacol Lozenge) 1 each MUCOUS MEM Q2H PRN PRN Reason: Sore Throat Bisacodyl (Dulcolax) 10 mg RECTAL DAILY PRN PRN Reason: Constipation Last Admin: 11/16/16 17:18 Dose: 10 mg Budesonide (Pulmicort) 1 mg INHALATION RT-BID [facility] Last Admin: 11/24/16 07:34 Dose: 1 mg Chlorhexidine Gluconate (Peridex) 15 ml MUCOUS MEM BID [facility] Last Admin: 11/24/16 08:45 Dose: 15 ml Digoxin (Lanoxin) 250 mcg OG-TUBE DAILY [facility] Last Admin: 11/24/16 08:45 Dose: 250 mcg Heparin Sodium (Porcine) (Heparin) 0 unit IV PER PROTOCOL PRN; Protocol PRN Reason: Low PTT Last Admin: 11/20/16 16:59 Dose: 2,497 unit Hydralazine HCl (Apresoline) 10 mg IVP Q4HR PRN PRN Reason: Blood Pressure - High Last Admin: 11/23/16 23:00 Dose: 10 mg Propofol 500 mg/ IV Solution 50 mls @ 0 mls/hr IV .Q0M [facility]; Titrate PRN Reason: Protocol Last Admin: 11/23/16 23:40 Dose: 20 mcg/kg/min, 11.68 mls/hr Heparin Sodium/Dextrose 25,000 (unit/ IV Solution) 500 mls @ 19.98 mls/hr IV .Q24H [facility]; 10 UNITS/KG/HR PRN Reason: Protocol Last Admin: 11/24/16 08:47 Dose: 14 units/kg/hr, 27.97 mls/hr Sodium Chloride (Saline 0.9%) 1,000 mls @ 20 mls/hr IV .Q24H [facility] Last Admin: 11/23/16 11:29 Dose: 20 mls/hr Levofloxacin 750 mg/ IV (Solution) 150 mls @ 100 mls/hr IVPB Q24H [facility] Last Admin: 11/23/16 16:16 Dose: 100 mls/hr Potassium Chloride/Dextrose/Sod Cl (D5%-1/2ns-Kcl 20 Meq/L Iv Solution) 1,000 mls @ 80 mls/hr IV .[id number] [facility] Last Admin: 11/24/16 08:48 Dose: 80 mls/hr Insulin Human Lispro (Humalog) 0 unit SQ Q4H [facility] PRN Reason: Protocol Last Admin: 11/24/16 08:44 Dose: Not Given Ipratropium Osgood (Atrovent Nebulized) 0.5 mg INHALATION RT-Q4H [facility] Last Admin: 11/24/16 11:08 Dose: 0.5 mg Iron/Minerals/Multivitamins (Theragran Liquid) 15 ml PO DAILY@1200 [facility] Last Admin: 11/23/16 11:29 Dose: 15 ml Lactulose (Cephulac) 30 gm PO BID [facility] Last Admin: 11/23/16 20:29 Dose: 30 gm Levalbuterol HCl (Xopenex Nebulized (Conc)) 1.25 mg INHALATION RT-Q4H [facility] Last Admin: 11/24/16 11:08 Dose: 1.25 mg Lisinopril (Zestril) 10 mg PO BID [facility] Last Admin: 11/23/16 21:35 Dose: 10 mg Magnesium Hydroxide (Milk Of Magnesia) 2,400 mg PO BID PRN PRN Reason: Constipation Metoclopramide HCl (Reglan) 10 mg IVP Q4H PRN PRN Reason: Nausea And Vomiting Metoprolol Tartrate (Lopressor) 25 mg PO BID [facility] Last Admin: 11/24/16 08:46 Dose: 25 mg Miscellaneous Information (Magnesium Per Protocol) 1 each MISCELLANE DAILY PRN ; Protocol PRN Reason: Per Protocol Miscellaneous Information (Phosphorus Per Protocol) 1 each MISCELLANE DAILY PRN ; Protocol PRN Reason: Per Protocol Miscellaneous Information (Potassium Per Protocol) 1 each MISCELLANE DAILY PRN ; Protocol PRN Reason: Per Protocol Miscellaneous Information (Potassium Per Protocol) 1 each MISCELLANE DAILY PRN ; Protocol PRN Reason: Per Protocol Morphine Sulfate (Morphine Sulfate (Inj)) 2 mg IVP Q2H PRN PRN Reason: Severe Pain Last Admin: 11/23/16 22:16 Dose: 2 mg Ondansetron HCl (Zofran) 4 mg IVP Q6HR PRN PRN Reason: Nausea And Vomiting Pantoprazole Sodium (Protonix) 40 mg IVP DAILY [facility] Last Admin: 11/24/16 08:46 Dose: 40 mg Senna/Docusate Sodium (Senokot-S) 2 each PO HS [facility] Last Admin: 11/23/16 22:40 Dose: Not Given Sodium Chloride (Saline Flush) 10 ml IV BID [facility] Last Admin: 11/24/16 08:46 Dose: Not Given Sodium Chloride (Saline Flush) 20 ml IV Q4HR PRN PRN Reason: PICC Line Sodium Chloride (Saline Flush) 10 ml IV WEEKLY [facility] Last Admin: 11/24/16 08:46 Dose: Not Given Sodium Chloride (Saline Flush) 10 ml IV Q4HR PRN PRN Reason: PICC Line Thiamine HCl (Vitamin B-1) 100 mg PO BID [facility] Last Admin: 11/24/16 08:47 Dose: 100 mg Plan: 1. Continue aspirin, Lipitor, Lopressor, lisinopril, digoxin. 2. Continue amiodarone for atrial fibrillation/atrial flutter prophylaxis. Cardiology managing. 3. Ventilator management and pulmonary management per Dr Whelan. Possible extubation today. 4. Physical therapy for range of motion exercises. 5. Insulin/diabetic management per primary care service. 6. Potassium will be replaced per protocol, D5 0.45 normal saline with 20 of KCl initiated at 80 mL per hour. 7. Daily labs, chest x-rays. 8. GI/DVT prophylaxis. 9. Diprivan drip is on hold to evaluate underlying mentation and possible attempt to wean from the ventilator. 10. Heparin protocol continued for atrial fibrillation/atrial flutter. 11. Tube feedings on hold at this time, patient had an emesis 2 early this a.m. NG tube has been placed and is on low intermittent suction. 12. More recommendations as patient progresses. <Thaddeus Kessler - Last Filed: 11/24/16 16:56> Progress Note - Text The patient was seen and examined. I agree with the above assessment and plan. He was extubated earlier today. He is currently awake and follows commands and moves all extremities. However he is lethargic and significantly debilitated. He appears to have some stridor this afternoon. We will administer Solu-Medrol and keep a close eye on his pulmonary status. His abdomen is distended but I am told has improved since earlier this morning. There are no peritoneal signs. Rectal tube was placed secondary to dilated bowel. He already has an NG tube. He remains on intravenous heparin. His blood pressure is stable. We'll continue with physical therapy as tolerated.
--- NOTE | 2016-11-24 17:19 | P.PN ---
Subjective This is a 60-year-old gentleman that is status post CABG postop day 11. Failure to wean from mechanical ventilator. Patient is seen in consultation for medical management. Patient is currently on pressure control ventilation with PTCA of 18 cm water Depo 7 FiO2 50% and respiratory rate of 18. Patient is awake however not responsive appropriately. Is moving his all 4 extremities to command This a.m. patient apparently was having episodes of hypotension as patient was going into atrial fibrillation. Weaning trials were attempted this a.m. with a pressure support of 7 according to verbal report patient apparently had tachypnea within 5 minutes hence was restarted on full pressure-controlled ventilation. 11/24/16 No new overnight events Pt was extubated doing well appears to be confused Concern for abdominal distention 2 episodes of emesis No fevers, chills. NG in place Objective - Vital Signs Vital signs: Vital Signs Temp 98.2 F 11/24/16 12:00 Pulse 73 11/24/16 15:41 Resp 14 11/24/16 14:00 BP 94/62 11/23/16 12:00 Pulse Ox 98 11/24/16 14:00 Intake & Output 11/23/16 11/24/16 11/24/16 18:59 06:59 18:59 Intake Total 1826 998 500 Output Total 812 1185 450 Balance 1014 -187 50 Weight 100.3 kg 100.3 kg Intake: IV 260 240 20 Sodium Chloride 0.9% 1, 260 240 20 000 ml @ 20 mls/hr IV . Q24H [facility] Rx#:[id number] Intake, IV Titration 1050 500 480 Amount Albumin Human 5% 250 ml 500 In Empty Bag 1 bag @ 250 mls/hr IVPB ONCE ONE Rx#: [id number] D5-0.45% NaCl with KCl 480 20Meq/l 1,000 ml @ 80 mls /hr IV .[id number] [facility] Rx#: [id number] Heparin Sodium,Porcine/ 500 500 D5w Pmx 25,000 unit In Dextrose/Water 1 500ml. bag @ 10 UNITS/KG/HR 19. 98 mls/hr IV .Q24H [facility] Rx #:[id number] Propofol 500 mg In Empty 50 Bag 1 bag @ Titrate IV . Q0M [facility] Rx#:[id number] Tube Feeding 516 258 0 Output: Urine 812 1185 450 Other: Voiding Method Indwelling Catheter Indwelling Catheter # Bowel Movements 1 1 ABP, PAP, CO, CI - Last Documented Arterial Blood Pressure 138/50 Pulmonary Artery Pressure 46/23 Cardiac Output 6.8 Cardiac Index 3.3 - Exam Gen. appearanceawake answers some questions appropriately Lungs diminished breath sounds no rhonchi wheezing or crackles appreciated Heart S1-S2 heard no significant murmurs appreciated Abdomen is soft nontender no organomegaly, some distention. Lower extremities no significant edema Neuro awake moving all four extremities - Labs CBC & Chem 7: 11/24/16 04:25 11/24/16 11:28 Labs: Abnormal Lab Results - Last 24 Hours (Table) 11/23/16 11/24/16 11/24/16 Range/Units 20:38 00:22 03:22 WBC (3.8-10.6) k/uL RBC (4.30-5.90) m/uL Hgb (13.0-17.5) gm/dL Hct (39.0-53.0) % Neutrophils # (1.3-7.7) k/uL PT (9.0-12.0) sec APTT (22.0-30.0) sec ABG pH (7.35-7.45) ABG pCO2 (35-45) mmHg ABG O2 Saturation (94-97) % Potassium (3.5-5.1) mmol/L Chloride (98-107) mmol/L Carbon Dioxide (22-30) mmol/L BUN (9-20) mg/dL Glucose (74-99) mg/dL POC Glucose (mg/dL) 143 H 170 H 139 H (75-99) mg/dL Calcium (8.4-10.2) mg/dL Magnesium (1.6-2.3) mg/dL 11/24/16 11/24/16 11/24/16 Range/Units 04:25 04:25 04:25 WBC 19.2 H (3.8-10.6) k/uL RBC 2.46 L (4.30-5.90) m/uL Hgb 7.9 L (13.0-17.5) gm/dL Hct 24.2 L (39.0-53.0) % Neutrophils # 16.9 H (1.3-7.7) k/uL PT 13.5 H (9.0-12.0) sec APTT 65.6 H (22.0-30.0) sec ABG pH (7.35-7.45) ABG pCO2 (35-45) mmHg ABG O2 Saturation (94-97) % Potassium 2.9 L* (3.5-5.1) mmol/L Chloride 109 H (98-107) mmol/L Carbon Dioxide 21 L (22-30) mmol/L BUN 44 H (9-20) mg/dL Glucose 125 H (74-99) mg/dL POC Glucose (mg/dL) (75-99) mg/dL Calcium 8.1 L (8.4-10.2) mg/dL Magnesium 2.5 H (1.6-2.3) mg/dL 11/24/16 11/24/16 11/24/16 Range/Units 05:19 07:56 12:04 WBC (3.8-10.6) k/uL RBC (4.30-5.90) m/uL Hgb (13.0-17.5) gm/dL Hct (39.0-53.0) % Neutrophils # (1.3-7.7) k/uL PT (9.0-12.0) sec APTT (22.0-30.0) sec ABG pH 7.46 H (7.35-7.45) ABG pCO2 30 L (35-45) mmHg ABG O2 Saturation 99.0 H (94-97) % Potassium (3.5-5.1) mmol/L Chloride (98-107) mmol/L Carbon Dioxide (22-30) mmol/L BUN (9-20) mg/dL Glucose (74-99) mg/dL POC Glucose (mg/dL) 132 H 175 H (75-99) mg/dL Calcium (8.4-10.2) mg/dL Magnesium (1.6-2.3) mg/dL Microbiology - Last 24 Hours (Table) 11/10/16 16:40 Acid Fast Bacilli Smear - Final Lung - Right Acid Fast Bacilli Culture - Preliminary 11/21/16 02:00 Blood Culture - Preliminary Blood No Growth after 72 hours Assessment and Plan Plan: #1 acute hypoxic respiratory failure as expected however prolonged due to other comorbidities. #2 CAD status post CABG postop day 13 #3 critical care polyneuropathy #4 history of hypertension #5 dyslipidemia #6 proximal atrial fibrillation recurrent episodes of A. fib with RVR. #7 history of significant alcohol use status post a prolonged episode of delirium tremens #8 gout #9 diabetes mellitus currently on insulin drip. #10 dysphagia secondary to above #11 M .catarrhalis tracheal bronchitis 12. Colonic distention. Plan s/p extubation tolerating well Abdominal xr reviewed rectal tube to be placed Continue ongoing care.
[2016-11-24] MEDS: LEVOFLOXACIN 750MG-D5W PMX 750 MG in DEXTROSE/WATER 1 150ML.BAG IVPB SCH (18:29)
[2016-11-24 18:32] LABS: Glucose,Whole Blood 164 mg/dL (75-99)
[2016-11-24 20:52] LABS: Glucose,Whole Blood 177 mg/dL (75-99)
[2016-11-24 21:35] LABS: Magnesium 2.5 mg/dL (1.6-2.3); Potassium 3.6 mmol/L (3.5-5.1)
[2016-11-24 23:42] LABS: Glucose,Whole Blood 176 mg/dL (75-99)
[2016-11-25] MEDS: LEVALBUTEROL NEB (CONC) 1.25 MG/0.5 ML AMP INHALATION SCH ×5 (03:08→19:39)
[2016-11-25] MEDS: IPRATROPIUM 0.5 MG/2.5 ML NEBU INHALATION SCH ×5 (03:08→19:39)
[2016-11-25] MEDS: INSULIN LISPRO (humaLOG) 300 UNIT/3 ML VIAL SQ SCH ×2 (04:52→08:23)
[2016-11-25 04:56] LABS: Glucose,Whole Blood 198 mg/dL (75-99)
[2016-11-25] MEDS: D5-0.45% NACL WITH KCL 20MEQ/L 1,000 ML IV SCH ×2 (05:00→09:13)
[2016-11-25 05:02] LABS: Basophils % (A) 0 %; CH 32.7; CHCM 33.8; Eosinophils % (A) 0 %; HCT 25.7 % (39.0-53.0); HDW 3.06; HGB 8.7 gm/dL (13.0-17.5); Luc % (Auto) 1; Lymphocytes # (A) 0.7 k/uL (1.0-4.8); Lymphocytes % (A) 5 %; MCH 33.1 pg (25.0-35.0); MCHC 33.9 g/dL (31.0-37.0); MCV 97.5 fL (80.0-100.0); Mean Platelet Volume 7.4; Monocytes # (A) 0.3 k/uL (0-1.0); Monocytes % (A) 2 %; Neutrophils # (A) 13.9 k/uL (1.3-7.7); Neutrophils % (A) 92 %; RBC 2.64 m/uL (4.30-5.90); RDW 14.2 % (11.5-15.5); WBC 15.1 k/uL (3.8-10.6)
[2016-11-25 05:49] LABS: ALT 62 U/L (21-72); AST 33 U/L (17-59); Alkaline Phosphatase 71 U/L (38-126); Anion Gap 9 mmol/L; Blood Urea Nitrogen 24 mg/dL (9-20); Calcium 8.4 mg/dL (8.4-10.2); Carbon Dioxide 21 mmol/L (22-30); Chloride 112 mmol/L (98-107); Digoxin 0.7 ng/mL; Glucose 194 mg/dL (74-99); Non-African American GFR(MDRD) >60 (>60 ml/min/1.73 sqM); Potassium 3.6 mmol/L (3.5-5.1); Sodium 142 mmol/L (137-145); Total Bilirubin 1.2 mg/dL (0.2-1.3); Total Protein 5.8 g/dL (6.3-8.2)
--- NOTE | 2016-11-25 06:48 | XR ---
EXAMINATION TYPE: XR chest 1V portable DATE OF EXAM: 11/25/2016 6:33 AM CLINICAL HISTORY: Postop CABG procedure. TECHNIQUE: Single AP portable upright view of the chest is obtained. COMPARISON: Chest x-ray from one day earlier FINDINGS: A nasogastric tube is stable in appearance. Post CABG changes with mediastinal clips and s ternal wires is redemonstrated. There is persistent cardiomegaly with central vascular congestion and small bilateral pleural effusions. There is more prominent left basilar opacity. No sizable pneumoth orax is seen bilaterally. Osseous structures are intact. IMPRESSION: Overall stable findings, cardiomegaly and central vascular congestion with small bilate ral pleural effusions and more focal left basilar infiltrate and/or atelectasis all redemonstrated.
[2016-11-25] MEDS: SENNOSIDES-DOCUSATE SODIUM 1 EACH TAB PO SCH ×2 (07:47→20:25)
[2016-11-25] MEDS: LACTULOSE 20 GM/30 ML CUP PO SCH ×2 (07:47→10:07)
[2016-11-25] MEDS: BUDESONIDE 1 MG/2 ML NEBU INHALATION SCH ×2 (07:56→19:39)
[2016-11-25 08:03] LABS: Glucose,Whole Blood 219 mg/dL (75-99)
[2016-11-25] MEDS: POTASSIUM CHLORIDE 10 MEQ in WATER FOR INJECTION 1 100ML.BAG IVPB SCH ×4 (08:14→15:22)
[2016-11-25 08:22] LABS: Glucose,Whole Blood 208 mg/dL (75-99)
[2016-11-25] MEDS: ASPIRIN 325 MG TAB PO SCH (08:25)
[2016-11-25] MEDS: AMIODARONE 200 MG TAB PO SCH ×2 (08:25→20:24)
[2016-11-25] MEDS: DIGOXIN 250 MCG TAB OG-TUBE SCH (08:25)
[2016-11-25] MEDS: PANTOPRAZOLE 40 MG/10 ML VIAL IVP SCH (08:25)
[2016-11-25] MEDS: CHLORHEXIDINE GLUCONATE 15 ML CUP MUCOUS MEM SCH (08:25)
[2016-11-25] MEDS: ATORVASTATIN 40 MG TAB PO SCH (08:25)
[2016-11-25] MEDS: METOPROLOL TARTRATE 25 MG TAB PO SCH ×2 (08:26→20:24)
[2016-11-25] MEDS: THIAMINE 100 MG TAB PO SCH ×2 (08:26→20:24)
[2016-11-25 08:37] LABS: INR 1.2 (<1.1); Partial Thromboplastin Time 40.1 sec (22.0-30.0); Prothrombin Time 11.7 sec (9.0-12.0)
[2016-11-25] MEDS: INSULIN REGULAR 100 UNIT in SODIUM CHLORIDE 0.9% 100 ML IV SCH (09:11)
[2016-11-25 09:12] LABS: Glucose,Whole Blood 192 mg/dL (75-99)
[2016-11-25] MEDS: LISINOPRIL 10 MG TAB PO SCH ×2 (09:13→20:24)
--- NOTE | 2016-11-25 09:19 | XR ---
EXAMINATION TYPE: XR abdomen 1V DATE OF EXAM: 11/25/2016 9:09 AM CLINICAL HISTORY: Abdominal distention progress study. TECHNIQUE: 3 AP portable supine and upright views of the abdomen are acquired.. COMPARISON: Abdominal x-ray from one day earlier. FINDINGS: Sternal wires and mediastinal clips are redemonstrated. There is persistent cardiomegaly wi th left basilar opacity consistent with infiltrate and/or atelectasis and probable small left pleural effusion. There is coiled nasogastric tube. There are persistent gaseous dilated small and large bowel loops th roughout the visualized abdomen and pelvis. Degree of gaseous distention is most prominent in colonic loops and fairly stable. Monitoring device overlies pubic symphysis. No pneumoperitoneum is seen. Vi sualized osseous structures are intact. IMPRESSION: Persistent overall nonspecific bowel gas pattern favoring ileus not significantly changed from prior.
[2016-11-25] MEDS: HEPARIN SODIUM,PORCINE/D5W PMX 25,000 UNIT in DEXTROSE/WATER 1 500ML.BAG IV SCH (09:21)
[2016-11-25 09:46] LABS: Glucose,Whole Blood 192 mg/dL (75-99)
[2016-11-25 11:13] LABS: Glucose,Whole Blood 154 mg/dL (75-99)
[2016-11-25 12:10] LABS: Glucose,Whole Blood 154 mg/dL (75-99)
[2016-11-25] MEDS: SODIUM CHLORIDE 0.9% 1,000 ML IV SCH (12:19)
[2016-11-25] MEDS: MULTIVITAMINS, THERA LIQUID 237 ML BOTTLE PO SCH (13:08)
[2016-11-25 13:09] LABS: Glucose,Whole Blood 136 mg/dL (75-99)
[2016-11-25 14:15] LABS: Glucose,Whole Blood 143 mg/dL (75-99)
[2016-11-25 15:23] LABS: Glucose,Whole Blood 133 mg/dL (75-99)
[2016-11-25 15:58] LABS: Glucose,Whole Blood 124 mg/dL (75-99)
[2016-11-25] MEDS: LEVOFLOXACIN 750MG-D5W PMX 750 MG in DEXTROSE/WATER 1 150ML.BAG IVPB SCH (16:30)
[2016-11-25] MEDS: HEPARIN SODIUM,PORCINE 5,000 UNIT/ML 1 ML VIAL IV PRN (16:34)
--- NOTE | 2016-11-25 16:48 | P.PN ---
Subjective 61-year-old male patient with status post carotid bypass surgery and the patient is postop day #11. The patient has failed to wean off the mechanical ventilator. Immediately postop the patient had pulmonate complications including mucous plugs and atelectasis of the left lung. He required bronchoscopy and therapeutic airway suctioning and all of the respiratory cultures came back negative. This morning, the patient was on a volume cycled assist-control mode of ventilation at the rate of 20, tidal volume 450, FiO2 of 40% and a PEEP of 5. I reviewed the blood gases and I reviewed also the chest x -ray. I noted that the patient was unable to tolerate assist-control mode. Attempts to wean him off the sedation Emily as the patient was becoming restless and a successful the mechanical ventilator. Based on this, I switched this patient to a pressure support mode of ventilation and I was able to completely wean him off sedation. He was wide awake all he was hardly able to wiggle his toes or move his fingers and he was unable to raise his had or arms against gravity. He was having copious amount of rest or secretions and he was requiring frequent suctioning. At a later stage, switch this patient to a pressure control mode of ventilation with a PEEP of 7 and a pressure control of 20 and his FiO2 was At 60%. He remains hemodynamically stable. He is producing adequate amount of urine output. No pressors at this point. No fever. No chills. Chest tubes have been all removed. He is tolerating tube feeds. Atelectatic discussion with the cardiothoracic surgeon and will plan to proceed with a PEG and trach if the patient ultimately failed weaning. 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 On 11/22/2016 the patient remains intubated on a mechanical ventilator. I was able to the sedation completely on the patient. He is awake at this point and he had been awake throughout the night. He is following simple commands. Motor functions are nearly absent. The patient is extremely weak. He can wiggle his toes and occasionally bend his knees. Otherwise he cannot raise his arms and legs against gravity. He has a cough reflex. He can blink his eyes and raises eyebrows. Reflexes are significantly diminished in the upper and lower extremities bilaterally. Is on a pressure control mode of ventilation at the rate of 18, PC 18, PEEP of 7 and FiO2 of 50%. Still having significant respiratory secretions through the orotracheal tube. The chest x-ray from today shows moderate parenchymal opacity within the left lung base and the right lung base. There is some atelectatic changes in the lung bases more so on the left. The patient has also postop changes related to coronary artery bypass surgery. No fever. No chills. Hemodynamically stable. Producing adequate amount of urine output and the patient was diuresis with a combination of albumin and Lasix. He is on tube feeds. On 11/23/2016 the patient remains on a mechanical ventilator. Seems to be much more awake compared to yesterday. Motor functions remain weak over the patient is doing more activity and movement on today's evaluation. We were able to bring the patient is sitting up position for a total of 2 hours today. He tolerated well and following that he had a coughing spells and he had to be placed in bed. He remains in the same vent setting with a pressure control of 18, PEEP of 7, FiO2 of 50% and rate of 18. Chest x-ray shows adequate expansion of the left lung with a few being in good location. Sputum analysis showed Moraxella catarrhalis and the based on that the patient was started on Levaquin. Note that he had also Klebsiella PNEUMONIA IN HIS URINE, AND BOTH OF THESE MICROORGANISMS SHOULD RESPOND TO LEVAQUIN. Meanwhile, the patient is receiving enteral feeding for nutritional support. IV Solu Medrol is been discontinued. We'll doing daily physical therapy and passive range of motion. He remains on IV heparin. He remains on IV insulin for blood sugar control. Morning blood gases showed a pH of 7.51 with a pCO2 of 26 and pO2 of 79. Weaning parameters are still poor as the patient has rapid shallow breathing index around 120 and the patient becomes tachypneic and the LOW tidal volumes. On 11/24/2016 the patient is being seen in follow-up. Earlier this morning the patient was still mechanical ventilator on a pressure control mode. Chest x- ray from earlier this morning showed no significant abnormalities. There was improvement in aeration in lung bases bilaterally especially on the left. NG tube was still in a good location below the diaphragm. Meanwhile affect abdominal film was done this morning and that showed a component of ileus. Note that overnight, the patient's tube feeds were discontinued knowing that he had 2 bouts of emesis. Nevertheless, despite ongoing gastrointestinal abnormalities, the patient is doing very well while being on mechanical ventilator and is awake and alert. We checked his weaning parameters this morning and the numbers looked very well. He was given a pressure support of 5 and PEEP of 5 and a breathing trial for a total of 30 minutes and following that we made a decision to extubate this patient. This was a difficult decision to make knowing that the patient had an underlying abdominal ileus and he is still having significant motor weakness in the upper and lower extremities. Nevertheless, I noted that his motor function is improved his cough improved and he had very decent weaning parameters. I suspected that this will be his last chance of being extubated and if not successful, he will need a PEG and trach with the next 24 hours. Based on this, I extubated this patient. He remains on IV heparin. He remains on IV insulin. He is also on Levaquin. He is afebrile. He is awake and following commands. Motor function is gradually improving. No other new complaints otherwise for now. Noted post extubation, the patient was placed on 5 L of oxygen nasal cannula with saturation of 94-95%He continued to bleed comfortably. He was placed in sitting up position in ICU. 11/25/2016, the patient is being seen in follow-up in the intensive care unit. The patient has been extubated and has been off the mechanical ventilator for the past 24 hours. He is breathing comfortably. No significant rest or distress. NG tube is in place. There is considerable amount of output from the NG tube still in the abdomen is distended although less compared to yesterday. He had colonic ileus and some dilatation of the small bowel. A rectal tube was inserted and abdomen was quite deflated. He is producing some loose liquidy bowel movements yesterday and small amounts. Rectal examination was done and the patient does not have any impacted stool. No abdominal pain. No fever. No chills. He is in sinus rhythm for the time being and stable hemodynamics. Is producing adequate amount of urine output. All of the surgical wound sites are clean and intact. Neurologically is awake. There has been obvious improvement in the motor function and the patient is talking and communicating at this point. He remains on IV heparin. He remains on IV insulin for blood sugar control. White cell count is at 15.1. Hemoglobin is stable at 8.7. Objective - Vital Signs Vital signs: Vital Signs Temp 97.3 F L 11/25/16 16:00 Pulse 68 11/25/16 16:04 Resp 20 11/25/16 16:00 BP 127/67 11/25/16 16:00 Pulse Ox 99 11/25/16 16:00 Intake & Output 11/24/16 11/25/16 11/25/16 18:59 06:59 18:59 Intake Total 1020 1560 1157.658 Output Total 1210 1060 1065 Balance -190 500 92.658 Weight 100.3 kg 97.7 kg Intake: IV 20 27 0.9 for pressure bag 27 Sodium Chloride 0.9% 1, 20 000 ml @ 20 mls/hr IV . Q24H [facility] Rx#:[id number] Intake, IV Titration 1000 1500 1130.658 Amount D5-0.45% NaCl with KCl 800 800 480 20Meq/l 1,000 ml @ 80 mls /hr IV .[id number] [facility] Rx#: [id number] Heparin Sodium,Porcine/ 500 227.981 D5w Pmx 25,000 unit In Dextrose/Water 1 500ml. bag @ 10 UNITS/KG/HR 19. 98 mls/hr IV .Q24H [facility] Rx #:[id number] Insulin Regular 100 unit 22.677 In Sodium Chloride 0.9% 100 ml @ Per Protocol IV .Q0M [facility] Rx#:[id number] Potassium Chloride 10 meq 200 In Water For Injection 1 100ml.bag @ 100 mls/hr IVPB Q1H [facility] Rx#: [id number] Potassium Chloride 10 meq 200 In Water For Injection 1 100ml.bag @ 100 mls/hr IVPB Q1H [facility] Rx#: [id number] Potassium Chloride 10 meq 400 In Water For Injection 1 100ml.bag @ 100 mls/hr IVPB Q1H [facility] Rx#: [id number] Tube Feeding 0 Other 60 Output: Gastric Drainage 600 500 Urine 610 1060 565 Other: Voiding Method Indwelling Catheter Indwelling Catheter Indwelling Catheter # Bowel Movements 1 2 ABP, PAP, CO, CI - Last Documented Arterial Blood Pressure 178/87 Pulmonary Artery Pressure 46/23 Cardiac Output 6.8 Cardiac Index 3.3 - Exam Head exam was generally normal. There was no scleral icterus or corneal arcus. Mucous membranes were moist.Neck was supple and without jugular venous distension, thyromegaly, or carotid bruits. Carotids were easily palpable bilaterally. There was no adenopathy. The patient has an NG tube in place and the patient has no stridor. He has some degree of crowding of the posterior oropharynx. Mucosal membranes are dry. Lung sounds are diminished in lung bases bilaterally otherwise clear. Heart sounds are regular, positive S1-S2, no cervical murmurs appreciated and sternum stable clean and intact. Abdomen is slightly distended. This positive tympany. Bowel sounds are hypoactive. There is no direct tenderness. No rebound tensile guarding.Examination of the extremities revealed easily palpable radial, femoral and pedal pulses. There was no cyanosis, clubbing or edema. Neurologically, the patient is awake and alert. He is, indicating. No focal neurological deficit. Motor function is weak although improved compared to yesterday. The patient is able to raise his arms and legs against gravity. There is no focal neurological deficit at this point. He has a decent cough. He is also communicating and verbal. - Labs CBC & Chem 7: 11/25/16 04:50 11/25/16 12:15 Labs: Abnormal Lab Results - Last 24 Hours (Table) 11/24/16 11/24/16 11/24/16 Range/Units 18:31 20:45 20:48 WBC (3.8-10.6) k/uL RBC (4.30-5.90) m/uL Hgb (13.0-17.5) gm/dL Hct (39.0-53.0) % Neutrophils # (1.3-7.7) k/uL Lymphocytes # (1.0-4.8) k/uL APTT (22.0-30.0) sec Chloride (98-107) mmol/L Carbon Dioxide (22-30) mmol/L BUN (9-20) mg/dL Glucose (74-99) mg/dL POC Glucose (mg/dL) 164 H 177 H (75-99) mg/dL Magnesium 2.5 H (1.6-2.3) mg/dL Total Protein (6.3-8.2) g/dL Albumin (3.5-5.0) g/dL 11/24/16 11/25/16 11/25/16 Range/Units 23:29 04:50 04:50 WBC 15.1 H (3.8-10.6) k/uL RBC 2.64 L (4.30-5.90) m/uL Hgb 8.7 L (13.0-17.5) gm/dL Hct 25.7 L (39.0-53.0) % Neutrophils # 13.9 H (1.3-7.7) k/uL Lymphocytes # 0.7 L (1.0-4.8) k/uL APTT (22.0-30.0) sec Chloride 112 H (98-107) mmol/L Carbon Dioxide 21 L (22-30) mmol/L BUN 24 H (9-20) mg/dL Glucose 194 H (74-99) mg/dL POC Glucose (mg/dL) 176 H (75-99) mg/dL Magnesium (1.6-2.3) mg/dL Total Protein 5.8 L (6.3-8.2) g/dL Albumin 2.9 L (3.5-5.0) g/dL 11/25/16 11/25/16 11/25/16 Range/Units 04:50 04:52 07:59 WBC (3.8-10.6) k/uL RBC (4.30-5.90) m/uL Hgb (13.0-17.5) gm/dL Hct (39.0-53.0) % Neutrophils # (1.3-7.7) k/uL Lymphocytes # (1.0-4.8) k/uL APTT (22.0-30.0) sec Chloride (98-107) mmol/L Carbon Dioxide (22-30) mmol/L BUN (9-20) mg/dL Glucose (74-99) mg/dL POC Glucose (mg/dL) 198 H 219 H (75-99) mg/dL Magnesium 2.7 H (1.6-2.3) mg/dL Total Protein (6.3-8.2) g/dL Albumin (3.5-5.0) g/dL 11/25/16 11/25/16 11/25/16 Range/Units 08:10 08:20 09:09 WBC (3.8-10.6) k/uL RBC (4.30-5.90) m/uL Hgb (13.0-17.5) gm/dL Hct (39.0-53.0) % Neutrophils # (1.3-7.7) k/uL Lymphocytes # (1.0-4.8) k/uL APTT 40.1 H (22.0-30.0) sec Chloride (98-107) mmol/L Carbon Dioxide (22-30) mmol/L BUN (9-20) mg/dL Glucose (74-99) mg/dL POC Glucose (mg/dL) 208 H 192 H (75-99) mg/dL Magnesium (1.6-2.3) mg/dL Total Protein (6.3-8.2) g/dL Albumin (3.5-5.0) g/dL 11/25/16 11/25/16 11/25/16 Range/Units 09:44 11:12 12:08 WBC (3.8-10.6) k/uL RBC (4.30-5.90) m/uL Hgb (13.0-17.5) gm/dL Hct (39.0-53.0) % Neutrophils # (1.3-7.7) k/uL Lymphocytes # (1.0-4.8) k/uL APTT (22.0-30.0) sec Chloride (98-107) mmol/L Carbon Dioxide (22-30) mmol/L BUN (9-20) mg/dL Glucose (74-99) mg/dL POC Glucose (mg/dL) 192 H 154 H 154 H (75-99) mg/dL Magnesium (1.6-2.3) mg/dL Total Protein (6.3-8.2) g/dL Albumin (3.5-5.0) g/dL 11/25/16 11/25/16 11/25/16 Range/Units 13:07 14:12 15:20 WBC (3.8-10.6) k/uL RBC (4.30-5.90) m/uL Hgb (13.0-17.5) gm/dL Hct (39.0-53.0) % Neutrophils # (1.3-7.7) k/uL Lymphocytes # (1.0-4.8) k/uL APTT 43.8 H (22.0-30.0) sec Chloride (98-107) mmol/L Carbon Dioxide (22-30) mmol/L BUN (9-20) mg/dL Glucose (74-99) mg/dL POC Glucose (mg/dL) 136 H 143 H (75-99) mg/dL Magnesium (1.6-2.3) mg/dL Total Protein (6.3-8.2) g/dL Albumin (3.5-5.0) g/dL 11/25/16 11/25/16 Range/Units 15:20 15:57 WBC (3.8-10.6) k/uL RBC (4.30-5.90) m/uL Hgb (13.0-17.5) gm/dL Hct (39.0-53.0) % Neutrophils # (1.3-7.7) k/uL Lymphocytes # (1.0-4.8) k/uL APTT (22.0-30.0) sec Chloride (98-107) mmol/L Carbon Dioxide (22-30) mmol/L BUN (9-20) mg/dL Glucose (74-99) mg/dL POC Glucose (mg/dL) 133 H 124 H (75-99) mg/dL Magnesium (1.6-2.3) mg/dL Total Protein (6.3-8.2) g/dL Albumin (3.5-5.0) g/dL Microbiology - Last 24 Hours (Table) 11/21/16 02:00 Blood Culture - Preliminary Blood No Growth after 96 hours Assessment and Plan Plan: Assessment 1 Coronary artery disease status post carotid bypass surgery and the patient is postop day #15 2 prolonged postoperative ventilator-dependent history failure, multifactorial. The active issue for now as the significant neuromuscular weakness that has complicated the patient's recovery. On 11/23/2016 the patient remains on a pressure control mode of ventilation. Weaning parameters are weak. The patient has profound neuromuscular weakness which is the main obstacle to hours further weaning. On 11/24/2016, the patient was extubated with the above-mentioned concerns. . There is a chest and the patient may fail extubation based on the fact that he still weak and he has an abdominal ileus which probably may affect his breathing. As such, we would monitor this patient very closely in the intensive care unit and consider reintubation if he fails and proceed with a PEG and trach in a.m. if he is unable to tolerate extubation. On 11/25/2016, the patient is being seen in follow-up. The patient is still extubated. Chest x-ray findings are stable with atelectatic changes small effusion the lung bases. Affect is slightly worse on the left. Nevertheless, sedation status remains unchanged and the patient is still breathing comfortably despite the ongoing abdominal ileus and distention. 3 recurrent mucous plugs with excessive respiratory secretions requiring bronchoscopy and a peak airway suctioning and a bronchoscopy cultures came back negative for any microbial growth The most recent sputum analysis showing Moraxella catarrhalis and the patient is currently on Levaquin. 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 NG tube is in place. Rectal tube was also inserted and then removed. 9 postoperative anemia, currently hemoglobin is stable 10 alcoholism, recovered from DT 11 gout 12 diabetes mellitus, currently on an insulin drip 13 distention of the bowel, favored a colonic ileus. Plan Monitor the patient closely in the intensive care unit. Consider reintubation there be any decompensation in the respiratory status. Meanwhile, neurologically the patient is getting stronger. NG tube will be kept in place. Keep the patient nothing by mouth for another 24 hours. Add Reglan 10 mg every 6 hours for both motility. Milk of magnesia twice a day. Early mobility if possible. Continue to the insulin drip for blood sugar control. Continued IV heparin. No signs of ischemic bowel. No signs of intra-abdominal source of sepsis. We'll continue to follow. Aggressive pulmonary toileting. Initiate use the incentive spirometer. Keep NG tube in place. Keep the patient ICU for another 24 hours. Will need close monitoring. This is a critically care evaluate her stool was done in 32 min Time with Patient: Greater than 30
[2016-11-25 17:24] LABS: Glucose,Whole Blood 138 mg/dL (75-99)
--- NOTE | 2016-11-25 17:32 | P.PN ---
Progress Note - Text CV Surgery Nursing Principal diagnosis: Coronary artery disease, status post prior stenting to his right coronary artery. Preserved left ventricular function. Hyperlipidemia. Hypertension. ETOH abuse. POD #15 total arterial non-aortic patch off-pump double coronary artery bypass grafting using in situ skeletonized right internal mammary artery to the left anterior descending artery across the anterior midline in situ totally skeletonized left internal mammary artery to the first obtuse marginal artery. Intraoperative transesophageal echocardiogram and epi-aortic scanning. Intraoperative graft flow measurements using the [employer] system POD #54 ,Patient had postoperative mucous plugging with increasing oxygen demand requiring bronchoscopy the night of surgery. Bronchial washings negative for bacteria/viruses to date. Patient developed postoperative alcohol withdrawal requiring increased sedation and continued mechanical ventilation. The patient is awake and alert, he shakes his head no when asked if having any pain. Moving all 4 extremities appropriately. Oriented 2, person and place. Reoriented to date. Vital Signs: Afebrile Vital Signs - 24 hr 11/24/16 11/24/16 11/24/16 09:00 09:30 10:00 Temperature Pulse Rate 70 71 63 Respiratory 20 20 23 Rate Blood Pressure O2 Sat by Pulse 98 99 99 Oximetry 11/24/16 11/24/16 11/24/16 10:30 11:00 11:12 Temperature Pulse Rate 65 76 67 Respiratory 18 25 H Rate Blood Pressure O2 Sat by Pulse 98 98 Oximetry 11/24/16 11/24/16 11/24/16 11:24 11:30 12:00 Temperature 98.2 F Pulse Rate 68 77 75 Respiratory 19 24 Rate Blood Pressure O2 Sat by Pulse 96 98 Oximetry 11/24/16 11/24/16 11/24/16 12:30 13:00 13:30 Temperature Pulse Rate 76 94 97 Respiratory 42 H 25 H 25 H Rate Blood Pressure O2 Sat by Pulse 95 94 L 95 Oximetry 11/24/16 11/24/16 11/24/16 14:00 15:00 15:29 Temperature Pulse Rate 70 80 77 Respiratory 14 25 H Rate Blood Pressure O2 Sat by Pulse 98 96 Oximetry 11/24/16 11/24/16 11/24/16 15:41 16:00 16:30 Temperature Pulse Rate 73 86 78 Respiratory 25 H 20 Rate Blood Pressure 132/67 O2 Sat by Pulse 90 L 99 Oximetry 11/24/16 11/24/16 11/24/16 17:00 17:30 18:00 Temperature Pulse Rate 76 77 82 Respiratory 19 23 24 Rate Blood Pressure 132/67 130/70 130/70 O2 Sat by Pulse 98 99 96 Oximetry 11/24/16 11/24/16 11/24/16 18:30 19:00 19:12 Temperature Pulse Rate 72 76 73 Respiratory 22 25 H Rate Blood Pressure 129/71 129/71 O2 Sat by Pulse 99 97 Oximetry 11/24/16 11/24/16 11/24/16 19:27 20:00 20:30 Temperature 98 F Pulse Rate 87 78 75 Respiratory 19 26 H Rate Blood Pressure 129/71 154/71 O2 Sat by Pulse 97 98 Oximetry 11/24/16 11/24/16 11/24/16 21:00 21:30 22:00 Temperature Pulse Rate 76 72 64 Respiratory 23 20 19 Rate Blood Pressure 154/71 139/72 139/72 O2 Sat by Pulse 100 99 98 Oximetry 11/24/16 11/24/16 11/24/16 23:00 23:24 23:37 Temperature Pulse Rate 66 74 73 Respiratory 19 Rate Blood Pressure 134/70 O2 Sat by Pulse 99 Oximetry 11/25/16 11/25/16 11/25/16 00:00 01:00 02:00 Temperature 98.1 F Pulse Rate 69 76 76 Respiratory 22 28 H 28 H Rate Blood Pressure 142/73 131/69 149/76 O2 Sat by Pulse 99 100 97 Oximetry 11/25/16 11/25/16 11/25/16 03:00 03:10 03:20 Temperature Pulse Rate 72 75 76 Respiratory 23 Rate Blood Pressure 148/73 O2 Sat by Pulse 95 Oximetry 11/25/16 11/25/16 11/25/16 04:00 05:00 06:00 Temperature 97.9 F Pulse Rate 81 75 73 Respiratory 25 H 21 24 Rate Blood Pressure 146/79 154/78 148/75 O2 Sat by Pulse 95 95 96 Oximetry 11/25/16 11/25/16 11/25/16 07:00 07:56 08:13 Temperature Pulse Rate 77 107 H 113 H Respiratory 20 Rate Blood Pressure 147/73 O2 Sat by Pulse 98 100 Oximetry ABP, PAP, CO, CI - Last 8 Hours Arterial Blood Pressure 179/81 Arterial Blood Pressure 167/69 Arterial Blood Pressure 165/69 Arterial Blood Pressure 163/69 Arterial Blood Pressure 165/71 Arterial Blood Pressure 184/75 Arterial Blood Pressure 148/96 Labs: Short CBC 11/25/16 Range/Units 04:50 WBC 15.1 H (3.8-10.6) k/uL Hgb 8.7 L (13.0-17.5) gm/dL Hct 25.7 L (39.0-53.0) % Plt Count 292 (150-450) k/uL Neutrophils # 13.9 H (1.3-7.7) k/uL BMP 11/24/16 11/24/16 11/25/16 11:28 20:45 04:50 Sodium 142 Potassium 3.6 3.6 3.6 Chloride 112 H Carbon Dioxide 21 L BUN 24 H Creatinine 0.70 Glucose 194 H Calcium 8.4 Liver Function 11/25/16 Range/Units 04:50 Total Bilirubin 1.2 (0.2-1.3) mg/dL AST 33 (17-59) U/L ALT 62 (21-72) U/L Alkaline Phosphatase 71 (38-126) U/L Albumin 2.9 L (3.5-5.0) g/dL ABG ABG pH 7.46 (7.35-7.45) H 11/24/16 05:19 ABG pCO2 30 mmHg (35-45) L 11/24/16 05:19 ABG pO2 108 mmHg (83-108) 11/24/16 05:19 ABG O2 Saturation 99.0 % (94-97) H 11/24/16 05:19 PT/INR, D-dimer PT 11.7 sec (9.0-12.0) 11/25/16 08:10 INR 1.2 (<1.1) 11/25/16 08:10 Microbiology 11/21/16 02:00 Blood Blood Culture - Preliminary No Growth after 96 hours 11/10/16 16:40 Lung - Right Acid Fast Bacilli Smear - Final 11/10/16 16:40 Lung - Right Acid Fast Bacilli Culture - Preliminary 11/21/16 04:40 Sputum Gram Stain - Final 11/21/16 04:40 Sputum Sputum Culture - Final Moraxella(branhamella) catarra 11/20/16 17:44 Urine,Catheterized Urine Culture - Final Klebsiella pneumoniae 11/10/16 16:40 Lung - Right Fungal Culture - Preliminary Rhiannon tropicalis 11/10/16 16:40 Lung Aspirate - Right Gram Stain - Final 11/10/16 16:40 Lung Aspirate - Right Bronchial Washings Culture - Final IV Fluids: D5/0.45 normal saline with 20 mEq of KCl at 80 mL per hour Heparin drip at 14 units per kilogram per hour Lungs: Scattered rhonchi throughout, diminished bilateral bases left greater than right. Respirations are symmetrical and unlabored. He was extubated yesterday 11/24/2016 at 10:15 AM. No further stridor noted this a.m. O2 sat: 98% on 10 L high flow nasal cannula. I/S: 250 mL to 500 mL, reviewed with the patient the importance of using his incentive spirometry. The patient will need a lot of encouragement with the incentive spirometry. Heart: S1S2, regular rhythm and rate, negative for S3, gallop or murmur. Bedside telemetry showing normal sinus rhythm heart rate 78. Sternum stable, chest incision clean with dressing clean and dry. Heart hugger in place. Knee-high CEZAR hose and sequential compression devices in place to bilateral lower extremities. Abdomen: Soft and nondistended. Positive tympanic bowel sounds present in all 4 quadrants. NG tube in place to low intermittent wall suction, with 400 mL of bile-colored drainage in the last 8 hours. There are 5 bowel movements recorded in the last 24 hours. Patient denies nausea. No further emesis. Rectal tube has been placed off and on per secondary to his dilated bowel. CBGs: 110-198 mg/dL in the last 24 hours. U/O: Adequate, Tay catheter for accurate I&O. 700 mL of output in the last 8 hours. 24 hr Total: Intake & Output 11/23/16 11/24/16 11/25/16 11/26/16 06:59 06:59 06:59 06:59 Intake Total 2513.230 2824 2080 80 Output Total 1790 1997 9590 450 Balance 723.230 827 190 370 Weight 101.6 kg 100.3 kg 97.7 kg Active Medications Hydrocodone Bitart/Acetaminophen ([place] 5-325) 2 each PO Q4HR PRN PRN Reason: Severe Pain Last Admin: 11/23/16 11:21 Dose: 2 each Hydrocodone Bitart/Acetaminophen ([place] 5-325) 1 each PO Q4HR PRN PRN Reason: Moderate Pain Amiodarone HCl (Cordarone) 200 mg PO BID [facility] Last Admin: 11/25/16 08:25 Dose: 200 mg Aspirin (Aspirin) 325 mg PO DAILY [facility] Last Admin: 11/25/16 08:25 Dose: 325 mg Atorvastatin Calcium (Lipitor) 40 mg PO DAILY [facility] Last Admin: 11/25/16 08:25 Dose: 40 mg Benzocaine (Hurricaine [place]) 1 applic MUCOUS MEM QID PRN PRN Reason: Mouth Irritation Last Admin: 11/14/16 11:36 Dose: 1 applic Bisacodyl (Dulcolax) 10 mg RECTAL DAILY PRN PRN Reason: Constipation Last Admin: 11/16/16 17:18 Dose: 10 mg Budesonide (Pulmicort) 1 mg INHALATION RT-BID [facility] Last Admin: 11/25/16 07:56 Dose: 1 mg Chlorhexidine Gluconate (Peridex) 15 ml MUCOUS MEM BID [facility] Last Admin: 11/25/16 08:25 Dose: Not Given Digoxin (Lanoxin) 250 mcg OG-TUBE DAILY [facility] Last Admin: 11/25/16 08:25 Dose: 250 mcg Heparin Sodium (Porcine) (Heparin) 0 unit IV PER PROTOCOL PRN; Protocol PRN Reason: Low PTT Last Admin: 11/20/16 16:59 Dose: 2,497 unit Hydralazine HCl (Apresoline) 10 mg IVP Q4HR PRN PRN Reason: Blood Pressure - High Last Admin: 11/24/16 12:22 Dose: 10 mg Propofol 500 mg/ IV Solution 50 mls @ 0 mls/hr IV .Q0M [facility]; Titrate PRN Reason: Protocol Last Admin: 11/23/16 23:40 Dose: 20 mcg/kg/min, 11.68 mls/hr Heparin Sodium/Dextrose 25,000 (unit/ IV Solution) 500 mls @ 19.98 mls/hr IV .Q24H [facility]; 10 UNITS/KG/HR PRN Reason: Protocol Last Admin: 11/24/16 08:47 Dose: 14 units/kg/hr, 27.97 mls/hr Sodium Chloride (Saline 0.9%) 1,000 mls @ 20 mls/hr IV .Q24H [facility] Last Admin: 11/24/16 12:22 Dose: 20 mls/hr Levofloxacin 750 mg/ IV (Solution) 150 mls @ 100 mls/hr IVPB Q24H [facility] Last Admin: 11/24/16 18:29 Dose: 100 mls/hr Potassium Chloride/Dextrose/Sod Cl (D5%-1/2ns-Kcl 20 Meq/L Iv Solution) 1,000 mls @ 80 mls/hr IV .[id number] [facility] Last Admin: 11/25/16 05:00 Dose: 80 mls/hr Insulin Human Regular 100 unit (/ Sodium Chloride) 101 mls @ 0 mls/hr IV .Q0M [facility]; Per Protocol PRN Reason: Protocol Ipratropium [place] (Atrovent Nebulized) 0.5 mg INHALATION RT-Q4H [facility] Last Admin: 11/25/16 07:56 Dose: 0.5 mg Iron/Minerals/Multivitamins (Theragran Liquid) 15 ml PO DAILY@1200 [facility] Last Admin: 11/24/16 12:23 Dose: Not Given Lactulose (Cephulac) 30 gm PO BID [facility] Last Admin: 11/25/16 07:47 Dose: Not Given Levalbuterol HCl (Xopenex Nebulized (Conc)) 1.25 mg INHALATION RT-Q4H [facility] Last Admin: 11/25/16 07:56 Dose: 1.25 mg Lisinopril (Zestril) 10 mg PO BID [facility] Last Admin: 11/24/16 21:16 Dose: 10 mg Magnesium Hydroxide (Milk Of Magnesia) 2,400 mg PO BID PRN PRN Reason: Constipation Metoclopramide HCl (Reglan) 10 mg IVP Q4H PRN PRN Reason: Nausea And Vomiting Metoprolol Tartrate (Lopressor) 25 mg PO BID [facility] Last Admin: 11/25/16 08:26 Dose: 25 mg Miscellaneous Information (Magnesium Per Protocol) 1 each MISCELLANE DAILY PRN ; Protocol PRN Reason: Per Protocol Miscellaneous Information (Phosphorus Per Protocol) 1 each MISCELLANE DAILY PRN ; Protocol PRN Reason: Per Protocol Miscellaneous Information (Potassium Per Protocol) 1 each MISCELLANE DAILY PRN ; Protocol PRN Reason: Per Protocol Morphine Sulfate (Morphine Sulfate (Inj)) 2 mg IVP Q4H PRN PRN Reason: Severe Pain Ondansetron HCl (Zofran) 4 mg IVP Q6HR PRN PRN Reason: Nausea And Vomiting Pantoprazole Sodium (Protonix) 40 mg IVP DAILY [facility] Last Admin: 11/25/16 08:25 Dose: 40 mg Senna/Docusate Sodium (Senokot-S) 2 each PO HS [facility] Last Admin: 11/25/16 07:47 Dose: Not Given Sodium Chloride (Saline Flush) 10 ml IV BID [facility] Last Admin: 11/25/16 08:26 Dose: Not Given Sodium Chloride (Saline Flush) 20 ml IV Q4HR PRN PRN Reason: PICC Line Sodium Chloride (Saline Flush) 10 ml IV WEEKLY [facility] Last Admin: 11/24/16 08:46 Dose: Not Given Sodium Chloride (Saline Flush) 10 ml IV Q4HR PRN PRN Reason: PICC Line Thiamine HCl (Vitamin B-1) 100 mg PO BID [facility] Last Admin: 11/25/16 08:26 Dose: 100 mg Plan: 1. Continue aspirin, Lipitor, Lopressor, lisinopril, digoxin. 2. Continue amiodarone for atrial fibrillation/atrial flutter prophylaxis. Cardiology managing. 3. Pulmonary management per Dr Whelan. The patient was extubated yesterday 11/24/2016 at 10:15 AM. 4. Physical therapy for increase activity as tolerated. 5. Insulin/diabetic management per primary care service. 6. Potassium will be replaced per protocol, D5 0.45 normal saline with 20 of KCl continued at 80 mL per hour. 7. Daily labs, chest x-rays. 8. GI/DVT prophylaxis. 9. Continue Levaquin IV piggyback 750 mg per positive Moraxella sputum culture. 10. Heparin protocol continued for atrial fibrillation/atrial flutter. 11. Tube feedings on hold at this time, patient had an emesis 2 early this a.m. NG tube has been placed and is on low intermittent suction. 12. More recommendations as patient progresses.
--- NOTE | 2016-11-25 17:39 | P.PN ---
Subjective This is a 60-year-old gentleman that is status post CABG postop day 11. Failure to wean from mechanical ventilator. Patient is seen in consultation for medical management. Patient is currently on pressure control ventilation with PTCA of 18 cm water Depo 7 FiO2 50% and respiratory rate of 18. Patient is awake however not responsive appropriately. Is moving his all 4 extremities to command This a.m. patient apparently was having episodes of hypotension as patient was going into atrial fibrillation. Weaning trials were attempted this a.m. with a pressure support of 7 according to verbal report patient apparently had tachypnea within 5 minutes hence was restarted on full pressure-controlled ventilation. 11/24/16 No new overnight events Pt was extubated doing well appears to be confused Concern for abdominal distention 2 episodes of emesis No fevers, chills. NG in place 11/25/16 On 7 lo2 has a cough, with thick sputum, however pt is unable to produce it due to a weak cough Is more appropriate today No significant abdominal tenderness reported. Objective - Vital Signs Vital signs: Vital Signs Temp 97.3 F L 11/25/16 16:00 Pulse 76 11/25/16 17:00 Resp 22 11/25/16 17:00 BP 131/70 11/25/16 17:00 Pulse Ox 94 L 11/25/16 17:00 Intake & Output 11/24/16 11/25/16 11/25/16 18:59 06:59 18:59 Intake Total 1020 1560 1264.522 Output Total 1210 1060 1115 Balance -190 500 149.522 Weight 100.3 kg 97.7 kg Intake: IV 20 30 0.9 for pressure bag 30 Sodium Chloride 0.9% 1, 20 000 ml @ 20 mls/hr IV . Q24H [facility] Rx#:[id number] Intake, IV Titration 1000 1500 1234.522 Amount D5-0.45% NaCl with KCl 800 800 480 20Meq/l 1,000 ml @ 80 mls /hr IV .[id number] [facility] Rx#: [id number] Heparin Sodium,Porcine/ 500 227.981 D5w Pmx 25,000 unit In Dextrose/Water 1 500ml. bag @ 10 UNITS/KG/HR 19. 98 mls/hr IV .Q24H [facility] Rx #:[id number] Insulin Regular 100 unit 26.541 In Sodium Chloride 0.9% 100 ml @ Per Protocol IV .Q0M [facility] Rx#:[id number] Levofloxacin 750Mg-D5w 100 Pmx 750 mg In Dextrose/ Water 1 150ml.bag @ 100 mls/hr IVPB Q24H [facility] Rx#: [id number] Potassium Chloride 10 meq 200 In Water For Injection 1 100ml.bag @ 100 mls/hr IVPB Q1H [facility] Rx#: [id number] Potassium Chloride 10 meq 200 In Water For Injection 1 100ml.bag @ 100 mls/hr IVPB Q1H [facility] Rx#: [id number] Potassium Chloride 10 meq 400 In Water For Injection 1 100ml.bag @ 100 mls/hr IVPB Q1H [facility] Rx#: [id number] Tube Feeding 0 Other 60 Output: Gastric Drainage 600 500 Urine 610 1060 615 Other: Voiding Method Indwelling Catheter Indwelling Catheter Indwelling Catheter # Bowel Movements 1 2 ABP, PAP, CO, CI - Last Documented Arterial Blood Pressure 174/58 Pulmonary Artery Pressure 46/23 Cardiac Output 6.8 Cardiac Index 3.3 - Exam Gen. appearanceawake answers some questions appropriately Lungs diminished breath sounds wheezing appreciated rhochi bilaterally. Heart S1-S2 heard no significant murmurs appreciated Abdomen is soft nontender no organomegaly, some distention. Lower extremities no significant edema Neuro awake moving all four extremities - Labs CBC & Chem 7: 11/25/16 04:50 11/25/16 12:15 Labs: Abnormal Lab Results - Last 24 Hours (Table) 11/24/16 11/24/16 11/24/16 Range/Units 18:31 20:45 20:48 WBC (3.8-10.6) k/uL RBC (4.30-5.90) m/uL Hgb (13.0-17.5) gm/dL Hct (39.0-53.0) % Neutrophils # (1.3-7.7) k/uL Lymphocytes # (1.0-4.8) k/uL APTT (22.0-30.0) sec Chloride (98-107) mmol/L Carbon Dioxide (22-30) mmol/L BUN (9-20) mg/dL Glucose (74-99) mg/dL POC Glucose (mg/dL) 164 H 177 H (75-99) mg/dL Magnesium 2.5 H (1.6-2.3) mg/dL Total Protein (6.3-8.2) g/dL Albumin (3.5-5.0) g/dL 11/24/16 11/25/16 11/25/16 Range/Units 23:29 04:50 04:50 WBC 15.1 H (3.8-10.6) k/uL RBC 2.64 L (4.30-5.90) m/uL Hgb 8.7 L (13.0-17.5) gm/dL Hct 25.7 L (39.0-53.0) % Neutrophils # 13.9 H (1.3-7.7) k/uL Lymphocytes # 0.7 L (1.0-4.8) k/uL APTT (22.0-30.0) sec Chloride 112 H (98-107) mmol/L Carbon Dioxide 21 L (22-30) mmol/L BUN 24 H (9-20) mg/dL Glucose 194 H (74-99) mg/dL POC Glucose (mg/dL) 176 H (75-99) mg/dL Magnesium (1.6-2.3) mg/dL Total Protein 5.8 L (6.3-8.2) g/dL Albumin 2.9 L (3.5-5.0) g/dL 11/25/16 11/25/16 11/25/16 Range/Units 04:50 04:52 07:59 WBC (3.8-10.6) k/uL RBC (4.30-5.90) m/uL Hgb (13.0-17.5) gm/dL Hct (39.0-53.0) % Neutrophils # (1.3-7.7) k/uL Lymphocytes # (1.0-4.8) k/uL APTT (22.0-30.0) sec Chloride (98-107) mmol/L Carbon Dioxide (22-30) mmol/L BUN (9-20) mg/dL Glucose (74-99) mg/dL POC Glucose (mg/dL) 198 H 219 H (75-99) mg/dL Magnesium 2.7 H (1.6-2.3) mg/dL Total Protein (6.3-8.2) g/dL Albumin (3.5-5.0) g/dL 11/25/16 11/25/16 11/25/16 Range/Units 08:10 08:20 09:09 WBC (3.8-10.6) k/uL RBC (4.30-5.90) m/uL Hgb (13.0-17.5) gm/dL Hct (39.0-53.0) % Neutrophils # (1.3-7.7) k/uL Lymphocytes # (1.0-4.8) k/uL APTT 40.1 H (22.0-30.0) sec Chloride (98-107) mmol/L Carbon Dioxide (22-30) mmol/L BUN (9-20) mg/dL Glucose (74-99) mg/dL POC Glucose (mg/dL) 208 H 192 H (75-99) mg/dL Magnesium (1.6-2.3) mg/dL Total Protein (6.3-8.2) g/dL Albumin (3.5-5.0) g/dL 11/25/16 11/25/16 11/25/16 Range/Units 09:44 11:12 12:08 WBC (3.8-10.6) k/uL RBC (4.30-5.90) m/uL Hgb (13.0-17.5) gm/dL Hct (39.0-53.0) % Neutrophils # (1.3-7.7) k/uL Lymphocytes # (1.0-4.8) k/uL APTT (22.0-30.0) sec Chloride (98-107) mmol/L Carbon Dioxide (22-30) mmol/L BUN (9-20) mg/dL Glucose (74-99) mg/dL POC Glucose (mg/dL) 192 H 154 H 154 H (75-99) mg/dL Magnesium (1.6-2.3) mg/dL Total Protein (6.3-8.2) g/dL Albumin (3.5-5.0) g/dL 11/25/16 11/25/16 11/25/16 Range/Units 13:07 14:12 15:20 WBC (3.8-10.6) k/uL RBC (4.30-5.90) m/uL Hgb (13.0-17.5) gm/dL Hct (39.0-53.0) % Neutrophils # (1.3-7.7) k/uL Lymphocytes # (1.0-4.8) k/uL APTT 43.8 H (22.0-30.0) sec Chloride (98-107) mmol/L Carbon Dioxide (22-30) mmol/L BUN (9-20) mg/dL Glucose (74-99) mg/dL POC Glucose (mg/dL) 136 H 143 H (75-99) mg/dL Magnesium (1.6-2.3) mg/dL Total Protein (6.3-8.2) g/dL Albumin (3.5-5.0) g/dL 11/25/16 11/25/16 11/25/16 Range/Units 15:20 15:57 17:22 WBC (3.8-10.6) k/uL RBC (4.30-5.90) m/uL Hgb (13.0-17.5) gm/dL Hct (39.0-53.0) % Neutrophils # (1.3-7.7) k/uL Lymphocytes # (1.0-4.8) k/uL APTT (22.0-30.0) sec Chloride (98-107) mmol/L Carbon Dioxide (22-30) mmol/L BUN (9-20) mg/dL Glucose (74-99) mg/dL POC Glucose (mg/dL) 133 H 124 H 138 H (75-99) mg/dL Magnesium (1.6-2.3) mg/dL Total Protein (6.3-8.2) g/dL Albumin (3.5-5.0) g/dL Microbiology - Last 24 Hours (Table) 11/21/16 02:00 Blood Culture - Preliminary Blood No Growth after 96 hours Assessment and Plan Plan: #1 acute hypoxic respiratory failure as expected however prolonged due to other comorbidities. #2 CAD status post CABG postop day 13 #3 critical care polyneuropathy #4 history of hypertension #5 dyslipidemia #6 proximal atrial fibrillation recurrent episodes of A. fib with RVR. #7 history of significant alcohol use status post a prolonged episode of delirium tremens #8 gout #9 diabetes mellitus currently on insulin drip. #10 dysphagia secondary to above #11 M .catarrhalis tracheal bronchitis 12. ileus. Plan one dose of solumedrol breathing tx pulmonary hygeine tolerating well Abdominal xr reviewed Continue ongoing care.
[2016-11-25 18:02] LABS: Glucose,Whole Blood 160 mg/dL (75-99)
--- NOTE | 2016-11-25 18:17 | P.PN ---
Subjective Principal diagnosis: Status post CABG, respiratory failure, atrial fibrillation and inability to extubate because of poor oxygenation This is a 60-year-old gentleman who is status post prior to coronary bypass surgery. Patient had a prolonged stay in ICU on mechanical ventilator support. He is also had some neuromuscular weakness. Today patient was extubated and so far he seems to be tolerating. He did develop some ileus and abdominal distention. Patient does have all sounds and having some stools. His potassium was low in the morning but it is supplemented. Is a concern that if he continues to this problem. Patient may require reintubation. At this time. Patient is maintaining sinus rhythm. We'll continue his current medical therapy. Tube Feeding is held for now. This patient is reevaluated on 25 of November. Patient remains extubated. Patient seemed to be tachypneic be tolerating very well so far. His abdomen is still tympanic but bowel sounds are present. Patient is having some loose bowel movements. Patient is having intermittent atrial fibrillation. He seems to be back in sinus rhythm. We will continue current medical therapy. Pulmonary is keeping a close eye on his pulmonary status. Incentive spirometry. Increase activity as tolerated. Objective - Vital Signs Vital signs: Vital Signs Temp 97.3 F L 11/25/16 16:00 Pulse 76 11/25/16 17:00 Resp 22 11/25/16 17:00 BP 131/70 11/25/16 17:00 Pulse Ox 94 L 11/25/16 17:00 Intake & Output 11/24/16 11/25/16 11/25/16 18:59 06:59 18:59 Intake Total 1020 1560 1266.088 Output Total 1210 1060 1115 Balance -190 500 151.088 Weight 100.3 kg 97.7 kg Intake: IV 20 30 0.9 for pressure bag 30 Sodium Chloride 0.9% 1, 20 000 ml @ 20 mls/hr IV . Q24H [facility] Rx#:[id number] Intake, IV Titration 1000 1500 1236.088 Amount D5-0.45% NaCl with KCl 800 800 480 20Meq/l 1,000 ml @ 80 mls /hr IV .[id number] [facility] Rx#: [id number] Heparin Sodium,Porcine/ 500 227.981 D5w Pmx 25,000 unit In Dextrose/Water 1 500ml. bag @ 10 UNITS/KG/HR 19. 98 mls/hr IV .Q24H [facility] Rx #:[id number] Insulin Regular 100 unit 28.107 In Sodium Chloride 0.9% 100 ml @ Per Protocol IV .Q0M [facility] Rx#:[id number] Levofloxacin 750Mg-D5w 100 Pmx 750 mg In Dextrose/ Water 1 150ml.bag @ 100 mls/hr IVPB Q24H [facility] Rx#: [id number] Potassium Chloride 10 meq 200 In Water For Injection 1 100ml.bag @ 100 mls/hr IVPB Q1H [facility] Rx#: [id number] Potassium Chloride 10 meq 200 In Water For Injection 1 100ml.bag @ 100 mls/hr IVPB Q1H [facility] Rx#: [id number] Potassium Chloride 10 meq 400 In Water For Injection 1 100ml.bag @ 100 mls/hr IVPB Q1H [facility] Rx#: [id number] Tube Feeding 0 Other 60 Output: Gastric Drainage 600 500 Urine 610 1060 615 Other: Voiding Method Indwelling Catheter Indwelling Catheter Indwelling Catheter # Bowel Movements 1 2 ABP, PAP, CO, CI - Last Documented Arterial Blood Pressure 174/58 Pulmonary Artery Pressure 46/23 Cardiac Output 6.8 Cardiac Index 3.3 - Exam GENERAL EXAM: Patient is more alert HEENT: Normocephalic. NECK: No masses, no nuchal rigidity. CHEST: No chest wall deformity. LUNGS: Breath sounds at bases HEART: S1 and S2 normal with no audible mumurs or gallops. Regular rhythm, femorals equal on both sides.. ABDOMEN: Distended and tympanic. Bowel sounds are present. SKIN: No rashes CENTRAL NERVOUS SYSTEM: Sedated EXTREMITIES: No cyanosis, clubbing or edema. - Labs CBC & Chem 7: 11/25/16 04:50 11/25/16 12:15 Labs: Abnormal Lab Results - Last 24 Hours (Table) 11/24/16 11/24/16 11/24/16 Range/Units 18:31 20:45 20:48 WBC (3.8-10.6) k/uL RBC (4.30-5.90) m/uL Hgb (13.0-17.5) gm/dL Hct (39.0-53.0) % Neutrophils # (1.3-7.7) k/uL Lymphocytes # (1.0-4.8) k/uL APTT (22.0-30.0) sec Chloride (98-107) mmol/L Carbon Dioxide (22-30) mmol/L BUN (9-20) mg/dL Glucose (74-99) mg/dL POC Glucose (mg/dL) 164 H 177 H (75-99) mg/dL Magnesium 2.5 H (1.6-2.3) mg/dL Total Protein (6.3-8.2) g/dL Albumin (3.5-5.0) g/dL 11/24/16 11/25/16 11/25/16 Range/Units 23:29 04:50 04:50 WBC 15.1 H (3.8-10.6) k/uL RBC 2.64 L (4.30-5.90) m/uL Hgb 8.7 L (13.0-17.5) gm/dL Hct 25.7 L (39.0-53.0) % Neutrophils # 13.9 H (1.3-7.7) k/uL Lymphocytes # 0.7 L (1.0-4.8) k/uL APTT (22.0-30.0) sec Chloride 112 H (98-107) mmol/L Carbon Dioxide 21 L (22-30) mmol/L BUN 24 H (9-20) mg/dL Glucose 194 H (74-99) mg/dL POC Glucose (mg/dL) 176 H (75-99) mg/dL Magnesium (1.6-2.3) mg/dL Total Protein 5.8 L (6.3-8.2) g/dL Albumin 2.9 L (3.5-5.0) g/dL 11/25/16 11/25/16 11/25/16 Range/Units 04:50 04:52 07:59 WBC (3.8-10.6) k/uL RBC (4.30-5.90) m/uL Hgb (13.0-17.5) gm/dL Hct (39.0-53.0) % Neutrophils # (1.3-7.7) k/uL Lymphocytes # (1.0-4.8) k/uL APTT (22.0-30.0) sec Chloride (98-107) mmol/L Carbon Dioxide (22-30) mmol/L BUN (9-20) mg/dL Glucose (74-99) mg/dL POC Glucose (mg/dL) 198 H 219 H (75-99) mg/dL Magnesium 2.7 H (1.6-2.3) mg/dL Total Protein (6.3-8.2) g/dL Albumin (3.5-5.0) g/dL 11/25/16 11/25/16 11/25/16 Range/Units 08:10 08:20 09:09 WBC (3.8-10.6) k/uL RBC (4.30-5.90) m/uL Hgb (13.0-17.5) gm/dL Hct (39.0-53.0) % Neutrophils # (1.3-7.7) k/uL Lymphocytes # (1.0-4.8) k/uL APTT 40.1 H (22.0-30.0) sec Chloride (98-107) mmol/L Carbon Dioxide (22-30) mmol/L BUN (9-20) mg/dL Glucose (74-99) mg/dL POC Glucose (mg/dL) 208 H 192 H (75-99) mg/dL Magnesium (1.6-2.3) mg/dL Total Protein (6.3-8.2) g/dL Albumin (3.5-5.0) g/dL 11/25/16 11/25/16 11/25/16 Range/Units 09:44 11:12 12:08 WBC (3.8-10.6) k/uL RBC (4.30-5.90) m/uL Hgb (13.0-17.5) gm/dL Hct (39.0-53.0) % Neutrophils # (1.3-7.7) k/uL Lymphocytes # (1.0-4.8) k/uL APTT (22.0-30.0) sec Chloride (98-107) mmol/L Carbon Dioxide (22-30) mmol/L BUN (9-20) mg/dL Glucose (74-99) mg/dL POC Glucose (mg/dL) 192 H 154 H 154 H (75-99) mg/dL Magnesium (1.6-2.3) mg/dL Total Protein (6.3-8.2) g/dL Albumin (3.5-5.0) g/dL 11/25/16 11/25/16 11/25/16 Range/Units 13:07 14:12 15:20 WBC (3.8-10.6) k/uL RBC (4.30-5.90) m/uL Hgb (13.0-17.5) gm/dL Hct (39.0-53.0) % Neutrophils # (1.3-7.7) k/uL Lymphocytes # (1.0-4.8) k/uL APTT 43.8 H (22.0-30.0) sec Chloride (98-107) mmol/L Carbon Dioxide (22-30) mmol/L BUN (9-20) mg/dL Glucose (74-99) mg/dL POC Glucose (mg/dL) 136 H 143 H (75-99) mg/dL Magnesium (1.6-2.3) mg/dL Total Protein (6.3-8.2) g/dL Albumin (3.5-5.0) g/dL 11/25/16 11/25/16 11/25/16 Range/Units 15:20 15:57 17:22 WBC (3.8-10.6) k/uL RBC (4.30-5.90) m/uL Hgb (13.0-17.5) gm/dL Hct (39.0-53.0) % Neutrophils # (1.3-7.7) k/uL Lymphocytes # (1.0-4.8) k/uL APTT (22.0-30.0) sec Chloride (98-107) mmol/L Carbon Dioxide (22-30) mmol/L BUN (9-20) mg/dL Glucose (74-99) mg/dL POC Glucose (mg/dL) 133 H 124 H 138 H (75-99) mg/dL Magnesium (1.6-2.3) mg/dL Total Protein (6.3-8.2) g/dL Albumin (3.5-5.0) g/dL 11/25/16 Range/Units 18:00 WBC (3.8-10.6) k/uL RBC (4.30-5.90) m/uL Hgb (13.0-17.5) gm/dL Hct (39.0-53.0) % Neutrophils # (1.3-7.7) k/uL Lymphocytes # (1.0-4.8) k/uL APTT (22.0-30.0) sec Chloride (98-107) mmol/L Carbon Dioxide (22-30) mmol/L BUN (9-20) mg/dL Glucose (74-99) mg/dL POC Glucose (mg/dL) 160 H (75-99) mg/dL Magnesium (1.6-2.3) mg/dL Total Protein (6.3-8.2) g/dL Albumin (3.5-5.0) g/dL Microbiology - Last 24 Hours (Table) 11/21/16 02:00 Blood Culture - Preliminary Blood No Growth after 96 hours Assessment and Plan (1) Status post coronary artery bypass graft Status: Acute (2) Family history of heart disease Status: Acute (3) Hyperlipidemia Status: Acute (4) Hypertension Status: Acute (5) Nicotine dependence, chewing tobacco, uncomplicated Status: Acute (6) Atrial fibrillation Status: Acute Plan: Patient clinical status seemed to be rather stable. Abdomen still shows findings of ileus. Is having intermittent atrial fibrillation. Pulmonary is keeping a close eye on his respiratory status. Patient is on amiodarone and Lopressor along with digoxin. We'll continue current medical therapy. Incentive spirometry.
[2016-11-25] MEDS: METOCLOPRAMIDE 5 MG/ML 2 ML VIAL IVP SCH (18:41)
[2016-11-25] MEDS ORDERED: POTASSIUM CHLORIDE 20 MEQ in WATER FOR INJECTION 1 100ML.BAG IVPB ONE (18:46)
[2016-11-25 18:58] LABS: Glucose,Whole Blood 136 mg/dL (75-99)
[2016-11-25 20:22] LABS: Glucose,Whole Blood 123 mg/dL (75-99)
[2016-11-25 21:11] LABS: Glucose,Whole Blood 120 mg/dL (75-99)
[2016-11-25] MEDS ORDERED: IPRATROPIUM-ALBUTEROL 3 ML NEB INHALATION PRN ×2 (21:32→21:33)
[2016-11-25 22:05] LABS: Glucose,Whole Blood 127 mg/dL (75-99)
[2016-11-25 23:07] LABS: Glucose,Whole Blood 109 mg/dL (75-99)
[2016-11-26] MEDS: D5-0.45% NACL WITH KCL 20MEQ/L 1,000 ML IV SCH ×2 (00:09→17:22)
[2016-11-26] MEDS: METOCLOPRAMIDE 5 MG/ML 2 ML VIAL IVP SCH ×4 (00:09→19:35)
[2016-11-26 00:10] LABS: Glucose,Whole Blood 127 mg/dL (75-99)
[2016-11-26] MEDS: HEPARIN SODIUM,PORCINE/D5W PMX 25,000 UNIT in DEXTROSE/WATER 1 500ML.BAG IV SCH ×2 (00:10→15:20)
[2016-11-26 00:55] LABS: Glucose,Whole Blood 129 mg/dL (75-99)
[2016-11-26 03:29] LABS: Glucose,Whole Blood 114 mg/dL (75-99)
[2016-11-26 04:27] LABS: Basophils % (A) 0 %; CH 32.1; CHCM 32.9; Eosinophils % (A) 0 %; HCT 25.6 % (39.0-53.0); HDW 3.07; HGB 8.3 gm/dL (13.0-17.5); Luc % (Auto) 1; Lymphocytes # (A) 1.7 k/uL (1.0-4.8); Lymphocytes % (A) 11 %; MCH 31.9 pg (25.0-35.0); MCHC 32.5 g/dL (31.0-37.0); MCV 98.3 fL (80.0-100.0); Mean Platelet Volume 7.8; Monocytes # (A) 0.5 k/uL (0-1.0); Monocytes % (A) 4 %; Neutrophils # (A) 12.9 k/uL (1.3-7.7); Neutrophils % (A) 84 %; RDW 14.6 % (11.5-15.5); WBC 15.5 k/uL (3.8-10.6); WBC (Perox) 14.85
[2016-11-26 04:55] LABS: ALT 62 U/L (21-72); AST 38 U/L (17-59); Alkaline Phosphatase 65 U/L (38-126); Anion Gap 7 mmol/L; Blood Urea Nitrogen 20 mg/dL (9-20); Calcium 8.3 mg/dL (8.4-10.2); Carbon Dioxide 24 mmol/L (22-30); Chloride 113 mmol/L (98-107); Glucose 104 mg/dL (74-99); Non-African American GFR(MDRD) >60 (>60 ml/min/1.73 sqM); Potassium 3.8 mmol/L (3.5-5.1); Sodium 144 mmol/L (137-145); Total Bilirubin 1.2 mg/dL (0.2-1.3); Total Protein 5.8 g/dL (6.3-8.2)
[2016-11-26 05:28] LABS: Glucose,Whole Blood 99 mg/dL (75-99)
[2016-11-26] MEDS: POTASSIUM CHLORIDE 10 MEQ in WATER FOR INJECTION 1 100ML.BAG IVPB SCH ×2 (06:45→08:09)
--- NOTE | 2016-11-26 06:47 | XR ---
EXAMINATION TYPE: XR chest 1V portable DATE OF EXAM: 11/26/2016 6:34 AM CLINICAL HISTORY: Difficulty breathing progress study. TECHNIQUE: Single AP portable upright view of the chest is obtained. COMPARISON: Chest x-ray from one day earlier FINDINGS: A nasogastric tube and left-sided PICC line are stable in appearance. Sternal wires are red emonstrated. There is persistent cardiomegaly with small bilateral pleural effusions and left basilar atelectasis and/or infiltrate. Some multilevel spurring in the spine is present. IMPRESSION: Overall stable findings, cardiomegaly with mild central vascular congestion and small b ilateral pleural effusions as well as more focal left basilar atelectasis and/or infiltrate all redem onstrated.
[2016-11-26 07:00] LABS: Glucose,Whole Blood 113 mg/dL (75-99)
[2016-11-26] MEDS: BUDESONIDE 1 MG/2 ML NEBU INHALATION SCH ×2 (07:17→19:34)
[2016-11-26] MEDS: IPRATROPIUM-ALBUTEROL 3 ML NEB INHALATION SCH ×4 (07:17→19:34)
[2016-11-26 07:49] LABS: Glucose,Whole Blood 116 mg/dL (75-99)
[2016-11-26] MEDS: AMIODARONE 200 MG TAB PO SCH ×2 (08:10→20:56)
[2016-11-26] MEDS: ATORVASTATIN 40 MG TAB PO SCH (08:10)
[2016-11-26] MEDS: PANTOPRAZOLE 40 MG/10 ML VIAL IVP SCH (08:10)
[2016-11-26] MEDS: THIAMINE 100 MG TAB PO SCH ×2 (08:11→20:56)
[2016-11-26] MEDS: DIGOXIN 250 MCG TAB OG-TUBE SCH (08:13)
[2016-11-26] MEDS: LISINOPRIL 10 MG TAB PO SCH ×2 (08:13→20:56)
[2016-11-26 09:21] LABS: Glucose,Whole Blood 116 mg/dL (75-99)
[2016-11-26] MEDS: METOPROLOL TARTRATE 25 MG TAB PO SCH ×2 (09:27→20:57)
[2016-11-26] MEDS: ASPIRIN 325 MG TAB PO SCH (09:27)
[2016-11-26] MEDS ORDERED: RX INFO: IV CONTRAST WAS GIVEN 1 EACH MISC MISCELLANE PRN ×2 (10:03→13:20)
--- NOTE | 2016-11-26 10:12 | P.PN ---
Subjective 61-year-old male patient with status post carotid bypass surgery and the patient is postop day #11. The patient has failed to wean off the mechanical ventilator. Immediately postop the patient had pulmonate complications including mucous plugs and atelectasis of the left lung. He required bronchoscopy and therapeutic airway suctioning and all of the respiratory cultures came back negative. This morning, the patient was on a volume cycled assist-control mode of ventilation at the rate of 20, tidal volume 450, FiO2 of 40% and a PEEP of 5. I reviewed the blood gases and I reviewed also the chest x -ray. I noted that the patient was unable to tolerate assist-control mode. Attempts to wean him off the sedation Emily as the patient was becoming restless and a successful the mechanical ventilator. Based on this, I switched this patient to a pressure support mode of ventilation and I was able to completely wean him off sedation. He was wide awake all he was hardly able to wiggle his toes or move his fingers and he was unable to raise his had or arms against gravity. He was having copious amount of rest or secretions and he was requiring frequent suctioning. At a later stage, switch this patient to a pressure control mode of ventilation with a PEEP of 7 and a pressure control of 20 and his FiO2 was At 60%. He remains hemodynamically stable. He is producing adequate amount of urine output. No pressors at this point. No fever. No chills. Chest tubes have been all removed. He is tolerating tube feeds. Atelectatic discussion with the cardiothoracic surgeon and will plan to proceed with a PEG and trach if the patient ultimately failed weaning. 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 On 11/22/2016 the patient remains intubated on a mechanical ventilator. I was able to the sedation completely on the patient. He is awake at this point and he had been awake throughout the night. He is following simple commands. Motor functions are nearly absent. The patient is extremely weak. He can wiggle his toes and occasionally bend his knees. Otherwise he cannot raise his arms and legs against gravity. He has a cough reflex. He can blink his eyes and raises eyebrows. Reflexes are significantly diminished in the upper and lower extremities bilaterally. Is on a pressure control mode of ventilation at the rate of 18, PC 18, PEEP of 7 and FiO2 of 50%. Still having significant respiratory secretions through the orotracheal tube. The chest x-ray from today shows moderate parenchymal opacity within the left lung base and the right lung base. There is some atelectatic changes in the lung bases more so on the left. The patient has also postop changes related to coronary artery bypass surgery. No fever. No chills. Hemodynamically stable. Producing adequate amount of urine output and the patient was diuresis with a combination of albumin and Lasix. He is on tube feeds. On 11/23/2016 the patient remains on a mechanical ventilator. Seems to be much more awake compared to yesterday. Motor functions remain weak over the patient is doing more activity and movement on today's evaluation. We were able to bring the patient is sitting up position for a total of 2 hours today. He tolerated well and following that he had a coughing spells and he had to be placed in bed. He remains in the same vent setting with a pressure control of 18, PEEP of 7, FiO2 of 50% and rate of 18. Chest x-ray shows adequate expansion of the left lung with a few being in good location. Sputum analysis showed Moraxella catarrhalis and the based on that the patient was started on Levaquin. Note that he had also Klebsiella PNEUMONIA IN HIS URINE, AND BOTH OF THESE MICROORGANISMS SHOULD RESPOND TO LEVAQUIN. Meanwhile, the patient is receiving enteral feeding for nutritional support. IV Solu Medrol is been discontinued. We'll doing daily physical therapy and passive range of motion. He remains on IV heparin. He remains on IV insulin for blood sugar control. Morning blood gases showed a pH of 7.51 with a pCO2 of 26 and pO2 of 79. Weaning parameters are still poor as the patient has rapid shallow breathing index around 120 and the patient becomes tachypneic and the LOW tidal volumes. On 11/24/2016 the patient is being seen in follow-up. Earlier this morning the patient was still mechanical ventilator on a pressure control mode. Chest x- ray from earlier this morning showed no significant abnormalities. There was improvement in aeration in lung bases bilaterally especially on the left. NG tube was still in a good location below the diaphragm. Meanwhile affect abdominal film was done this morning and that showed a component of ileus. Note that overnight, the patient's tube feeds were discontinued knowing that he had 2 bouts of emesis. Nevertheless, despite ongoing gastrointestinal abnormalities, the patient is doing very well while being on mechanical ventilator and is awake and alert. We checked his weaning parameters this morning and the numbers looked very well. He was given a pressure support of 5 and PEEP of 5 and a breathing trial for a total of 30 minutes and following that we made a decision to extubate this patient. This was a difficult decision to make knowing that the patient had an underlying abdominal ileus and he is still having significant motor weakness in the upper and lower extremities. Nevertheless, I noted that his motor function is improved his cough improved and he had very decent weaning parameters. I suspected that this will be his last chance of being extubated and if not successful, he will need a PEG and trach with the next 24 hours. Based on this, I extubated this patient. He remains on IV heparin. He remains on IV insulin. He is also on Levaquin. He is afebrile. He is awake and following commands. Motor function is gradually improving. No other new complaints otherwise for now. Noted post extubation, the patient was placed on 5 L of oxygen nasal cannula with saturation of 94-95%He continued to bleed comfortably. He was placed in sitting up position in ICU. 11/25/2016, the patient is being seen in follow-up in the intensive care unit. The patient has been extubated and has been off the mechanical ventilator for the past 24 hours. He is breathing comfortably. No significant rest or distress. NG tube is in place. There is considerable amount of output from the NG tube still in the abdomen is distended although less compared to yesterday. He had colonic ileus and some dilatation of the small bowel. A rectal tube was inserted and abdomen was quite deflated. He is producing some loose liquidy bowel movements yesterday and small amounts. Rectal examination was done and the patient does not have any impacted stool. No abdominal pain. No fever. No chills. He is in sinus rhythm for the time being and stable hemodynamics. Is producing adequate amount of urine output. All of the surgical wound sites are clean and intact. Neurologically is awake. There has been obvious improvement in the motor function and the patient is talking and communicating at this point. He remains on IV heparin. He remains on IV insulin for blood sugar control. White cell count is at 15.1. Hemoglobin is stable at 8.7. On 11/26/2016, the patient is being seen in follow-up. The patient is awake. Following commands and communicating. As mentioned earlier, profoundly weak although that has been steady and slow improvement in his motor function. NG tube in place. Abdomen remains distended. Flexeril of the abdomen shows ileus both large and small bowel. No bowel functional mobility at all over the past 12 hours. The patient is on Reglan. From the pulmonary standpoint, he is calm and comfortable. No labored breathing. Actually taking well on 3 L of oxygen by nasal cannula. The chest exit from today shows stable at ectatic changes small effusion the lung bases bilaterally. NG tube in place. Output is minimal at this point. Abdomen is tender get is soft and nontender. Bowel sounds are very hypoactive. Repeat abdominal films was reviewed and there is concern of ongoing large and small bowel ileus. He is on IV heparin. Remains on IV insulin for blood sugar control. Remains nothing by mouth for the time being. No leukocytosis. Cardiac rhythm is sinus. Objective - Vital Signs Vital signs: Vital Signs Temp 97.7 F 11/26/16 08:00 Pulse 72 11/26/16 09:00 Resp 21 11/26/16 09:00 BP 142/69 11/26/16 09:00 Pulse Ox 97 11/26/16 09:00 Intake & Output 11/25/16 11/26/16 11/26/16 18:59 06:59 18:59 Intake Total 1363.552 462.885 169 Output Total 1150 600 190 Balance 213.552 -137.115 -21 Weight 98.9 kg 98.9 kg Intake: IV 33 33 9 0.9 for pressure bag 33 33 9 Intake, IV Titration 1330.552 369.885 160 Amount D5-0.45% NaCl with KCl 520 80 160 20Meq/l 1,000 ml @ 80 mls /hr IV .[id number] [facility] Rx#: [id number] Heparin Sodium,Porcine/ 227.981 272.019 D5w Pmx 25,000 unit In Dextrose/Water 1 500ml. bag @ 10 UNITS/KG/HR 19. 98 mls/hr IV .Q24H [facility] Rx #:[id number] Insulin Regular 100 unit 32.571 17.866 0 In Sodium Chloride 0.9% 100 ml @ Per Protocol IV .Q0M [facility] Rx#:[id number] Levofloxacin 750Mg-D5w 150 Pmx 750 mg In Dextrose/ Water 1 150ml.bag @ 100 mls/hr IVPB Q24H [facility] Rx#: [id number] Potassium Chloride 10 meq 400 In Water For Injection 1 100ml.bag @ 100 mls/hr IVPB Q1H [facility] Rx#: [id number] Other 60 Output: Gastric Drainage 500 Urine 650 600 190 Other: Voiding Method Indwelling Catheter Indwelling Catheter # Bowel Movements 2 2 ABP, PAP, CO, CI - Last Documented Arterial Blood Pressure 172/58 Pulmonary Artery Pressure 46/23 Cardiac Output 6.8 Cardiac Index 3.3 - Exam Head exam was generally normal. There was no scleral icterus or corneal arcus. Mucous membranes were moist.Neck was supple and without jugular venous distension, thyromegaly, or carotid bruits. Carotids were easily palpable bilaterally. There was no adenopathy. The patient has an NG tube in place and the patient has no stridor. He has some degree of crowding of the posterior oropharynx. Mucosal membranes are dry. Lung sounds are diminished in lung bases bilaterally otherwise clear. Heart sounds are regular, positive S1-S2, no cervical murmurs appreciated and sternum stable clean and intact. Abdomen is distended. This positive tympany. Bowel sounds are hypoactive. There is no direct tenderness. No rebound tensile guarding.Examination of the extremities revealed easily palpable radial, femoral and pedal pulses. There was no cyanosis, clubbing or edema. Neurologically, the patient is awake and alert. He is, indicating. No focal neurological deficit. Motor function is weak although improved compared to yesterday. The patient is able to raise his arms and legs against gravity. There is no focal neurological deficit at this point. He has a decent cough. He is also communicating and verbal. - Labs CBC & Chem 7: 11/26/16 04:10 11/26/16 04:10 Labs: Abnormal Lab Results - Last 24 Hours (Table) 11/25/16 11/25/16 11/25/16 Range/Units 11:12 12:08 13:07 WBC (3.8-10.6) k/uL RBC (4.30-5.90) m/uL Hgb (13.0-17.5) gm/dL Hct (39.0-53.0) % Neutrophils # (1.3-7.7) k/uL APTT (22.0-30.0) sec Chloride (98-107) mmol/L Glucose (74-99) mg/dL POC Glucose (mg/dL) 154 H 154 H 136 H (75-99) mg/dL Calcium (8.4-10.2) mg/dL Total Protein (6.3-8.2) g/dL Albumin (3.5-5.0) g/dL 11/25/16 11/25/16 11/25/16 Range/Units 14:12 15:20 15:20 WBC (3.8-10.6) k/uL RBC (4.30-5.90) m/uL Hgb (13.0-17.5) gm/dL Hct (39.0-53.0) % Neutrophils # (1.3-7.7) k/uL APTT 43.8 H (22.0-30.0) sec Chloride (98-107) mmol/L Glucose (74-99) mg/dL POC Glucose (mg/dL) 143 H 133 H (75-99) mg/dL Calcium (8.4-10.2) mg/dL Total Protein (6.3-8.2) g/dL Albumin (3.5-5.0) g/dL 11/25/16 11/25/16 11/25/16 Range/Units 15:57 17:22 18:00 WBC (3.8-10.6) k/uL RBC (4.30-5.90) m/uL Hgb (13.0-17.5) gm/dL Hct (39.0-53.0) % Neutrophils # (1.3-7.7) k/uL APTT (22.0-30.0) sec Chloride (98-107) mmol/L Glucose (74-99) mg/dL POC Glucose (mg/dL) 124 H 138 H 160 H (75-99) mg/dL Calcium (8.4-10.2) mg/dL Total Protein (6.3-8.2) g/dL Albumin (3.5-5.0) g/dL 11/25/16 11/25/16 11/25/16 Range/Units 18:57 20:21 21:08 WBC (3.8-10.6) k/uL RBC (4.30-5.90) m/uL Hgb (13.0-17.5) gm/dL Hct (39.0-53.0) % Neutrophils # (1.3-7.7) k/uL APTT (22.0-30.0) sec Chloride (98-107) mmol/L Glucose (74-99) mg/dL POC Glucose (mg/dL) 136 H 123 H 120 H (75-99) mg/dL Calcium (8.4-10.2) mg/dL Total Protein (6.3-8.2) g/dL Albumin (3.5-5.0) g/dL 11/25/16 11/25/16 11/25/16 Range/Units 22:03 22:05 23:05 WBC (3.8-10.6) k/uL RBC (4.30-5.90) m/uL Hgb (13.0-17.5) gm/dL Hct (39.0-53.0) % Neutrophils # (1.3-7.7) k/uL APTT 51.6 H (22.0-30.0) sec Chloride (98-107) mmol/L Glucose (74-99) mg/dL POC Glucose (mg/dL) 127 H 109 H (75-99) mg/dL Calcium (8.4-10.2) mg/dL Total Protein (6.3-8.2) g/dL Albumin (3.5-5.0) g/dL 11/26/16 11/26/16 11/26/16 Range/Units 00:08 00:53 03:15 WBC (3.8-10.6) k/uL RBC (4.30-5.90) m/uL Hgb (13.0-17.5) gm/dL Hct (39.0-53.0) % Neutrophils # (1.3-7.7) k/uL APTT (22.0-30.0) sec Chloride (98-107) mmol/L Glucose (74-99) mg/dL POC Glucose (mg/dL) 127 H 129 H 114 H (75-99) mg/dL Calcium (8.4-10.2) mg/dL Total Protein (6.3-8.2) g/dL Albumin (3.5-5.0) g/dL 11/26/16 11/26/16 11/26/16 Range/Units 04:10 04:10 04:10 WBC 15.5 H (3.8-10.6) k/uL RBC 2.60 L (4.30-5.90) m/uL Hgb 8.3 L (13.0-17.5) gm/dL Hct 25.6 L (39.0-53.0) % Neutrophils # 12.9 H (1.3-7.7) k/uL APTT 54.5 H (22.0-30.0) sec Chloride 113 H (98-107) mmol/L Glucose 104 H (74-99) mg/dL POC Glucose (mg/dL) (75-99) mg/dL Calcium 8.3 L (8.4-10.2) mg/dL Total Protein 5.8 L (6.3-8.2) g/dL Albumin 2.7 L (3.5-5.0) g/dL 11/26/16 11/26/16 11/26/16 Range/Units 06:58 07:40 09:19 WBC (3.8-10.6) k/uL RBC (4.30-5.90) m/uL Hgb (13.0-17.5) gm/dL Hct (39.0-53.0) % Neutrophils # (1.3-7.7) k/uL APTT (22.0-30.0) sec Chloride (98-107) mmol/L Glucose (74-99) mg/dL POC Glucose (mg/dL) 113 H 116 H 116 H (75-99) mg/dL Calcium (8.4-10.2) mg/dL Total Protein (6.3-8.2) g/dL Albumin (3.5-5.0) g/dL Microbiology - Last 24 Hours (Table) 11/21/16 02:00 Blood Culture - Preliminary Blood No Growth after 120 hours Assessment and Plan Plan: Assessment 1 Coronary artery disease status post carotid bypass surgery and the patient is postop day #16 2 prolonged postoperative ventilator-dependent history failure, multifactorial. Patient has extubated. Nevertheless, the active ongoing problems for now is his neuromuscular weakness and ongoing ileus. Patient has a combination of large and small bowel ileus as evident on the flat film the abdomen. NG tube still in place. 3 recurrent mucous plugs with excessive respiratory secretions requiring bronchoscopy and a peak airway suctioning and a bronchoscopy cultures came back negative for any microbial growth. The most recent sputum analysis showing Moraxella catarrhalis and the patient is currently on Levaquin. Chest x-ray from today is showing atelectatic changes in lung bases bilaterally. Nevertheless the patient is oxygenating well and there is no respiratory distress at this point. 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 Despite this, the patient is having a nontoxic abdomen. No abdominal tenderness. No leukocytosis. No fever. No acidosis. NG tube is in place and the patient is still nothing by mouth. 9 postoperative anemia, currently hemoglobin is stable 10 alcoholism, recovered from DT 11 gout 12 diabetes mellitus, currently on an insulin drip Monitor the patient closely in the intensive care unit. I will keep NG tube in place. I will keep the patient nothing by mouth. I will consult general surgery. I will order a CAT scan of the abdomen and pelvis with oral contrast and will do 4 hour prep and this will hopefully facilitate some bowel activity and movement and I will review the CAT scan findings once the images are completed. Meanwhile, we will also sitter initiation of TPN for nutritional support. We'll ask dietary to make recommendations on TPN formula. Will need for antibiotic modification. White cell count is not elevated. Continue the Levaquin. Physical therapy. Sit up the patient on a cardiac chair. We'll continue to follow.
--- NOTE | 2016-11-26 10:14 | XR ---
EXAMINATION TYPE: XR abdomen 1V DATE OF EXAM: 11/26/2016 9:19 AM CLINICAL HISTORY: Abdominal pain and ileus. TECHNIQUE: 2 supine portable KUB images of the abdomen are obtained COMPARISON: Abdominal x-ray from one day earlier.. FINDINGS: Sternal wires and mediastinal clips are redemonstrated. There is persistent cardiomegaly wi th small left pleural effusion and left basilar atelectasis and/or infiltrate. There is persistent coiled nasogastric tube. Gas is seen in nondistended stomach. There are gas promi nent colonic loops along the periphery of the abdomen is redemonstrated. Degree of distention is felt stable or slightly improved. Most prominent area is the cecum which is felt stable. There is paucity of small bowel gas. Visualized gas is noted in nondistended small bowel loops in the lower abdomen a nd pelvis. A monitoring device overlies pubic symphysis. Visualized osseous structures are intact. IMPRESSION: Overall nonspecific bowel gas pattern remains present. Favor colonic ileus. No significant change fro m one day earlier.
[2016-11-26] MEDS: IOHEXOL 350 MG/ML 25 ML BOTTLE (ORAL USE) PO PRN ×2 (10:32→13:19)
--- NOTE | 2016-11-26 10:37 | P.GSCN ---
History of Present Illness Consult date: 11/26/16 Reason for Consult: Ileus History of present illness: This is a 61-year-old male who underwent a CABG approximately 2-1/2 weeks ago. Patient had a prolonged ventilation due to issues with DTs. The patient's been extubated for several days. He's had abdominal distention. His x-ray today shows evidence of a colonic ileus. Patient denies any abdominal pain. He states he feels mildly distended. He does not appear to be in any significant abdominal discomfort. He denies any chest pain. Review of Systems - Constitutional Reports as per HPI Past Medical History Past Medical History: Coronary Artery Disease (CAD), Hypertension, Myocardial Infarction (SC) Additional Past Medical History / Comment(s): gout Last Myocardial Infarction Date:: 1999 History of Any Multi-Drug Resistant Organisms: None Reported Past Surgical History: Heart Catheterization With Stent Additional Past Surgical History / Comment(s): stent x1 Past Anesthesia/Blood Transfusion Reactions: No Reported Reaction Date of Last Stent Placement:: 1999 Past Psychological History: No Psychological Hx Reported Smoking Status: Current every day smoker Past Alcohol Use History: Heavy Additional Past Alcohol Use History / Comment(s): chews tobacco, one tin last 3- 4 days, drinks 6-8 beers a day Past Drug Use History: None Reported - Past Family History Sister(s) Family Medical History: Cancer Additional Family Medical History / Comment(s): thyroid Medications and Allergies Home Medications Medication Instructions Recorded Confirmed Type Aspirin EC [Ecotrin] 325 mg PO DAILY 11/01/15 11/10/16 History Metoprolol Tartrate [Lopressor] 25 mg PO BID 11/01/15 11/10/16 History Atorvastatin [Lipitor] 40 mg PO HS 11/03/16 11/10/16 History Enalapril/Hydrochlorothiazide 1 tab PO DAILY 11/03/16 11/10/16 History [Vaseretic 10-25 mg] Thiamine [Vitamin B-1] 100 mg PO DAILY 11/07/16 11/10/16 History Allergies Allergy/AdvReac Type Severity Reaction Status Date / Time Penicillins Allergy Rash/Hives Verified 11/07/16 14:29 Surgical - Exam Vital Signs Temp Pulse Resp BP Pulse Ox 98.1 F 53 L 18 163/81 99 11/10/16 06:02 11/10/16 06:02 11/10/16 06:02 11/10/16 06:02 11/10/16 06:02 - General well developed, no distress - Eyes PERRL - ENT normal pinna - Neck no masses - Respiratory normal expansion - Cardiovascular Rhythm: regular - Abdomen Abdomen is soft. It is distended. There is no tenderness. No rebound or guarding. Results - Labs 11/26/16 04:10 11/26/16 04:10 Abnormal Lab Results - Last 24 Hours (Table) 11/25/16 11/25/16 11/25/16 Range/Units 11:12 12:08 13:07 WBC (3.8-10.6) k/uL RBC (4.30-5.90) m/uL Hgb (13.0-17.5) gm/dL Hct (39.0-53.0) % Neutrophils # (1.3-7.7) k/uL APTT (22.0-30.0) sec Chloride (98-107) mmol/L Glucose (74-99) mg/dL POC Glucose (mg/dL) 154 H 154 H 136 H (75-99) mg/dL Calcium (8.4-10.2) mg/dL Total Protein (6.3-8.2) g/dL Albumin (3.5-5.0) g/dL 11/25/16 11/25/16 11/25/16 Range/Units 14:12 15:20 15:20 WBC (3.8-10.6) k/uL RBC (4.30-5.90) m/uL Hgb (13.0-17.5) gm/dL Hct (39.0-53.0) % Neutrophils # (1.3-7.7) k/uL APTT 43.8 H (22.0-30.0) sec Chloride (98-107) mmol/L Glucose (74-99) mg/dL POC Glucose (mg/dL) 143 H 133 H (75-99) mg/dL Calcium (8.4-10.2) mg/dL Total Protein (6.3-8.2) g/dL Albumin (3.5-5.0) g/dL 11/25/16 11/25/16 11/25/16 Range/Units 15:57 17:22 18:00 WBC (3.8-10.6) k/uL RBC (4.30-5.90) m/uL Hgb (13.0-17.5) gm/dL Hct (39.0-53.0) % Neutrophils # (1.3-7.7) k/uL APTT (22.0-30.0) sec Chloride (98-107) mmol/L Glucose (74-99) mg/dL POC Glucose (mg/dL) 124 H 138 H 160 H (75-99) mg/dL Calcium (8.4-10.2) mg/dL Total Protein (6.3-8.2) g/dL Albumin (3.5-5.0) g/dL 11/25/16 11/25/16 11/25/16 Range/Units 18:57 20:21 21:08 WBC (3.8-10.6) k/uL RBC (4.30-5.90) m/uL Hgb (13.0-17.5) gm/dL Hct (39.0-53.0) % Neutrophils # (1.3-7.7) k/uL APTT (22.0-30.0) sec Chloride (98-107) mmol/L Glucose (74-99) mg/dL POC Glucose (mg/dL) 136 H 123 H 120 H (75-99) mg/dL Calcium (8.4-10.2) mg/dL Total Protein (6.3-8.2) g/dL Albumin (3.5-5.0) g/dL 11/25/16 11/25/16 11/25/16 Range/Units 22:03 22:05 23:05 WBC (3.8-10.6) k/uL RBC (4.30-5.90) m/uL Hgb (13.0-17.5) gm/dL Hct (39.0-53.0) % Neutrophils # (1.3-7.7) k/uL APTT 51.6 H (22.0-30.0) sec Chloride (98-107) mmol/L Glucose (74-99) mg/dL POC Glucose (mg/dL) 127 H 109 H (75-99) mg/dL Calcium (8.4-10.2) mg/dL Total Protein (6.3-8.2) g/dL Albumin (3.5-5.0) g/dL 11/26/16 11/26/16 11/26/16 Range/Units 00:08 00:53 03:15 WBC (3.8-10.6) k/uL RBC (4.30-5.90) m/uL Hgb (13.0-17.5) gm/dL Hct (39.0-53.0) % Neutrophils # (1.3-7.7) k/uL APTT (22.0-30.0) sec Chloride (98-107) mmol/L Glucose (74-99) mg/dL POC Glucose (mg/dL) 127 H 129 H 114 H (75-99) mg/dL Calcium (8.4-10.2) mg/dL Total Protein (6.3-8.2) g/dL Albumin (3.5-5.0) g/dL 11/26/16 11/26/16 11/26/16 Range/Units 04:10 04:10 04:10 WBC 15.5 H (3.8-10.6) k/uL RBC 2.60 L (4.30-5.90) m/uL Hgb 8.3 L (13.0-17.5) gm/dL Hct 25.6 L (39.0-53.0) % Neutrophils # 12.9 H (1.3-7.7) k/uL APTT 54.5 H (22.0-30.0) sec Chloride 113 H (98-107) mmol/L Glucose 104 H (74-99) mg/dL POC Glucose (mg/dL) (75-99) mg/dL Calcium 8.3 L (8.4-10.2) mg/dL Total Protein 5.8 L (6.3-8.2) g/dL Albumin 2.7 L (3.5-5.0) g/dL 11/26/16 11/26/16 11/26/16 Range/Units 06:58 07:40 09:19 WBC (3.8-10.6) k/uL RBC (4.30-5.90) m/uL Hgb (13.0-17.5) gm/dL Hct (39.0-53.0) % Neutrophils # (1.3-7.7) k/uL APTT (22.0-30.0) sec Chloride (98-107) mmol/L Glucose (74-99) mg/dL POC Glucose (mg/dL) 113 H 116 H 116 H (75-99) mg/dL Calcium (8.4-10.2) mg/dL Total Protein (6.3-8.2) g/dL Albumin (3.5-5.0) g/dL Microbiology - Last 24 Hours (Table) 11/21/16 02:00 Blood Culture - Preliminary Blood No Growth after 120 hours Diabetes panel 11/25/16 11/25/16 11/25/16 Range/Units 12:15 17:55 22:05 Sodium (137-145) mmol/L Potassium 3.7 3.5 4.0 (3.5-5.1) mmol/L Chloride (98-107) mmol/L Carbon Dioxide (22-30) mmol/L BUN (9-20) mg/dL Creatinine (0.66-1.25) mg/dL Glucose (74-99) mg/dL Calcium (8.4-10.2) mg/dL AST (17-59) U/L ALT (21-72) U/L Alkaline Phosphatase (38-126) U/L Total Protein (6.3-8.2) g/dL Albumin (3.5-5.0) g/dL 11/26/16 Range/Units 04:10 Sodium 144 (137-145) mmol/L Potassium 3.8 (3.5-5.1) mmol/L Chloride 113 H (98-107) mmol/L Carbon Dioxide 24 (22-30) mmol/L BUN 20 (9-20) mg/dL Creatinine 0.70 (0.66-1.25) mg/dL Glucose 104 H (74-99) mg/dL Calcium 8.3 L (8.4-10.2) mg/dL AST 38 (17-59) U/L ALT 62 (21-72) U/L Alkaline Phosphatase 65 (38-126) U/L Total Protein 5.8 L (6.3-8.2) g/dL Albumin 2.7 L (3.5-5.0) g/dL Calcium panel 11/26/16 Range/Units 04:10 Calcium 8.3 L (8.4-10.2) mg/dL Albumin 2.7 L (3.5-5.0) g/dL Pituitary panel 11/25/16 11/25/16 11/25/16 Range/Units 12:15 17:55 22:05 Sodium (137-145) mmol/L Potassium 3.7 3.5 4.0 (3.5-5.1) mmol/L Chloride (98-107) mmol/L Carbon Dioxide (22-30) mmol/L BUN (9-20) mg/dL Creatinine (0.66-1.25) mg/dL Glucose (74-99) mg/dL Calcium (8.4-10.2) mg/dL 11/26/16 Range/Units 04:10 Sodium 144 (137-145) mmol/L Potassium 3.8 (3.5-5.1) mmol/L Chloride 113 H (98-107) mmol/L Carbon Dioxide 24 (22-30) mmol/L BUN 20 (9-20) mg/dL Creatinine 0.70 (0.66-1.25) mg/dL Glucose 104 H (74-99) mg/dL Calcium 8.3 L (8.4-10.2) mg/dL Adrenal panel 11/25/16 11/25/16 11/25/16 Range/Units 12:15 17:55 22:05 Sodium (137-145) mmol/L Potassium 3.7 3.5 4.0 (3.5-5.1) mmol/L Chloride (98-107) mmol/L Carbon Dioxide (22-30) mmol/L BUN (9-20) mg/dL Creatinine (0.66-1.25) mg/dL Glucose (74-99) mg/dL Calcium (8.4-10.2) mg/dL Total Bilirubin (0.2-1.3) mg/dL AST (17-59) U/L ALT (21-72) U/L Alkaline Phosphatase (38-126) U/L Total Protein (6.3-8.2) g/dL Albumin (3.5-5.0) g/dL 11/26/16 Range/Units 04:10 Sodium 144 (137-145) mmol/L Potassium 3.8 (3.5-5.1) mmol/L Chloride 113 H (98-107) mmol/L Carbon Dioxide 24 (22-30) mmol/L BUN 20 (9-20) mg/dL Creatinine 0.70 (0.66-1.25) mg/dL Glucose 104 H (74-99) mg/dL Calcium 8.3 L (8.4-10.2) mg/dL Total Bilirubin 1.2 (0.2-1.3) mg/dL AST 38 (17-59) U/L ALT 62 (21-72) U/L Alkaline Phosphatase 65 (38-126) U/L Total Protein 5.8 L (6.3-8.2) g/dL Albumin 2.7 L (3.5-5.0) g/dL - Imaging Abdominal x-ray: report reviewed (Dilated colon) Assessment and Plan Plan: Abdominal distention secondary to colonic ileus. Patient left CAT scan of the abdomen and pelvis performed today. He is currently on Reglan. We will follow him closely.
--- NOTE | 2016-11-26 10:44 | P.PN ---
Progress Note - Text CV Surgery Nursing POD: #16 off-pump double coronary artery bypass graft using in situ skeletonized right internal mammary artery to left anterior descending coronary artery across the anterior midline and in situ totally skeletonized left internal mammary artery to the first obtuse marginal branch, intraoperative transesophageal echocardiogram and epi-aortic ultrasonography, intraoperative graft flow measurements using the [employer] system. Postop day #16 flexible bronchoscopy with bronchial washings Patient awake and alert but very weak, no distress noted, no specific complaints. Vital Signs: Afebrile , T-max is 98.9F Vital Signs - 24 hr 11/25/16 11/25/16 11/25/16 11:00 11:53 12:00 Temperature 97.3 F L Pulse Rate 68 69 66 Respiratory 19 19 Rate Blood Pressure 145/79 150/69 O2 Sat by Pulse 98 98 Oximetry 11/25/16 11/25/16 11/25/16 12:06 13:00 14:00 Temperature Pulse Rate 71 72 69 Respiratory 25 H 18 Rate Blood Pressure 147/80 150/82 O2 Sat by Pulse 97 98 Oximetry 11/25/16 11/25/16 11/25/16 15:00 15:52 16:00 Temperature 97.3 F L Pulse Rate 64 67 69 Respiratory 14 20 Rate Blood Pressure 134/70 127/67 O2 Sat by Pulse 93 L 99 Oximetry 11/25/16 11/25/16 11/25/16 16:04 17:00 18:00 Temperature Pulse Rate 68 76 72 Respiratory 22 20 Rate Blood Pressure 131/70 108/60 O2 Sat by Pulse 94 L 96 Oximetry 11/25/16 11/25/16 11/25/16 19:00 19:39 20:00 Temperature 98.3 F Pulse Rate 68 66 71 Respiratory 23 21 Rate Blood Pressure 125/64 120/67 O2 Sat by Pulse 96 100 Oximetry 11/25/16 11/25/16 11/25/16 20:04 21:00 22:00 Temperature Pulse Rate 72 68 64 Respiratory 35 H 21 Rate Blood Pressure 118/60 129/65 O2 Sat by Pulse 94 L 97 Oximetry 11/25/16 11/25/16 11/26/16 22:10 23:00 00:00 Temperature 98.3 F Pulse Rate 65 65 68 Respiratory 22 18 21 Rate Blood Pressure 130/67 130/67 140/73 O2 Sat by Pulse 94 L 97 96 Oximetry 11/26/16 11/26/16 11/26/16 01:00 02:00 03:00 Temperature Pulse Rate 69 63 61 Respiratory 16 19 18 Rate Blood Pressure 135/75 146/78 133/78 O2 Sat by Pulse 96 95 96 Oximetry 11/26/16 11/26/16 11/26/16 04:00 05:00 06:00 Temperature 98.9 F Pulse Rate 66 65 66 Respiratory 18 17 22 Rate Blood Pressure 141/76 140/74 141/78 O2 Sat by Pulse 92 L 95 95 Oximetry 11/26/16 11/26/16 11/26/16 07:00 07:18 07:33 Temperature Pulse Rate 65 69 70 Respiratory 18 Rate Blood Pressure 149/82 O2 Sat by Pulse 95 Oximetry 11/26/16 11/26/16 11/26/16 08:00 09:00 10:00 Temperature 97.7 F Pulse Rate 72 72 63 Respiratory 21 21 24 Rate Blood Pressure 149/70 142/69 145/81 O2 Sat by Pulse 97 97 96 Oximetry Labs: Short CBC 11/26/16 Range/Units 04:10 WBC 15.5 H (3.8-10.6) k/uL Hgb 8.3 L (13.0-17.5) gm/dL Hct 25.6 L (39.0-53.0) % Plt Count 299 (150-450) k/uL Neutrophils # 12.9 H (1.3-7.7) k/uL BMP 11/25/16 11/25/16 11/25/16 12:15 17:55 22:05 Sodium Potassium 3.7 3.5 4.0 Chloride Carbon Dioxide BUN Creatinine Glucose Calcium 11/26/16 04:10 Sodium 144 Potassium 3.8 Chloride 113 H Carbon Dioxide 24 BUN 20 Creatinine 0.70 Glucose 104 H Calcium 8.3 L Liver Function 11/26/16 Range/Units 04:10 Total Bilirubin 1.2 (0.2-1.3) mg/dL AST 38 (17-59) U/L ALT 62 (21-72) U/L Alkaline Phosphatase 65 (38-126) U/L Albumin 2.7 L (3.5-5.0) g/dL Microbiology 11/21/16 02:00 Blood Blood Culture - Preliminary No Growth after 120 hours 11/10/16 16:40 Lung - Right Acid Fast Bacilli Smear - Final 11/10/16 16:40 Lung - Right Acid Fast Bacilli Culture - Preliminary 11/21/16 04:40 Sputum Gram Stain - Final 11/21/16 04:40 Sputum Sputum Culture - Final Moraxella(branhamella) catarra 11/20/16 17:44 Urine,Catheterized Urine Culture - Final Klebsiella pneumoniae 11/10/16 16:40 Lung - Right Fungal Culture - Preliminary Rhiannon tropicalis 11/10/16 16:40 Lung Aspirate - Right Gram Stain - Final 11/10/16 16:40 Lung Aspirate - Right Bronchial Washings Culture - Final Lungs: voice is hoarse, respirations are even and nonlabored, breath sounds with coarse scattered rhonchi bilaterally O2 sat: 96% on 4 L of oxygen delivered via nasal cannula I/S: 650 mL Heart: S1S2, regular rate and rhythm, bedside telemetry shows a normal sinus rhythm with a rate of 69 Sternum stable, chest incision clean with silverlon dressing clean and dry. Abdomen: large, hyperactive bowel sounds present in all 4 quadrants. CBGs: 109-136 mg/dL U/O: Tay to dependent drainage with adequate urine output Intake & Output 11/24/16 11/25/16 11/26/16 11/27/16 06:59 06:59 06:59 06:59 Intake Total 2823 2580 1826.437 172 Output Total 19960 1750 235 Balance 827 310 76.437 -63 Weight 100.3 kg 97.7 kg 98.9 kg 98.9 kg Active Medications Hydrocodone Bitart/Acetaminophen ([place] 5-325) 2 each PO Q4HR PRN PRN Reason: Severe Pain Last Admin: 11/23/16 11:21 Dose: 2 each Hydrocodone Bitart/Acetaminophen ([place] 5-325) 1 each PO Q4HR PRN PRN Reason: Moderate Pain Albuterol/Ipratropium (Duoneb 0.5 Mg-3 Mg/3 Ml Soln) 3 ml INHALATION RT-QID [facility] Last Admin: 11/26/16 07:17 Dose: 3 ml Albuterol/Ipratropium (Duoneb 0.5 Mg-3 Mg/3 Ml Soln) 3 ml INHALATION RT-QID PRN PRN Reason: Shortness Of Breath Or Wheezing Amiodarone HCl (Cordarone) 200 mg PO BID [facility] Last Admin: 11/26/16 08:10 Dose: 200 mg Aspirin (Aspirin) 325 mg PO DAILY [facility] Last Admin: 11/26/16 09:27 Dose: 325 mg Atorvastatin Calcium (Lipitor) 40 mg PO DAILY [facility] Last Admin: 11/26/16 08:10 Dose: 40 mg Benzocaine (Hurricaine Staley) 1 applic MUCOUS MEM QID PRN PRN Reason: Mouth Irritation Last Admin: 11/14/16 11:36 Dose: 1 applic Bisacodyl (Dulcolax) 10 mg RECTAL DAILY PRN PRN Reason: Constipation Last Admin: 11/16/16 17:18 Dose: 10 mg Budesonide (Pulmicort) 1 mg INHALATION RT-BID [facility] Last Admin: 11/26/16 07:17 Dose: 1 mg Digoxin (Lanoxin) 250 mcg OG-TUBE DAILY [facility] Last Admin: 11/26/16 08:13 Dose: 250 mcg Heparin Sodium (Porcine) (Heparin) 0 unit IV PER PROTOCOL PRN; Protocol PRN Reason: Low PTT Last Admin: 11/25/16 16:34 Dose: 2,440 unit Hydralazine HCl (Apresoline) 10 mg IVP Q4HR PRN PRN Reason: Blood Pressure - High Last Admin: 11/24/16 12:22 Dose: 10 mg Heparin Sodium/Dextrose 25,000 (unit/ IV Solution) 500 mls @ 19.98 mls/hr IV .Q24H [facility]; 10 UNITS/KG/HR PRN Reason: Protocol Last Admin: 11/26/16 00:10 Dose: 18 units/kg/hr, 35.96 mls/hr Levofloxacin 750 mg/ IV (Solution) 150 mls @ 100 mls/hr IVPB Q24H [facility] Last Admin: 11/25/16 16:30 Dose: 100 mls/hr Potassium Chloride/Dextrose/Sod Cl (D5%-1/2ns-Kcl 20 Meq/L Iv Solution) 1,000 mls @ 80 mls/hr IV .[id number] [facility] Last Admin: 11/26/16 00:09 Dose: 80 mls/hr Insulin Human Regular 100 unit (/ Sodium Chloride) 101 mls @ 0 mls/hr IV .Q0M [facility]; Per Protocol PRN Reason: Protocol Last Titration: 11/26/16 07:59 Dose: 1.5 unit/hr, 1.51 mls/hr Iohexol (Omnipaque 350 Mg/Ml (For Oral Use)) 25 ml PO Q60M PRN PRN Reason: CT Scan Stop: 11/27/16 10:03 Last Admin: 11/26/16 10:32 Dose: 25 ml Iron/Minerals/Multivitamins (Theragran Liquid) 15 ml PO DAILY@1200 [facility] Last Admin: 11/25/16 13:08 Dose: 15 ml Lisinopril (Zestril) 10 mg PO BID [facility] Last Admin: 11/26/16 08:13 Dose: 10 mg Magnesium Hydroxide (Milk Of Magnesia) 2,400 mg PO BID PRN PRN Reason: Constipation Metoclopramide HCl (Reglan) 10 mg IVP Q6HR [facility] Last Admin: 11/26/16 06:30 Dose: 10 mg Metoprolol Tartrate (Lopressor) 25 mg PO BID [facility] Last Admin: 11/26/16 09:27 Dose: 25 mg Miscellaneous Information (Magnesium Per Protocol) 1 each MISCELLANE DAILY PRN ; Protocol PRN Reason: Per Protocol Miscellaneous Information (Phosphorus Per Protocol) 1 each MISCELLANE DAILY PRN ; Protocol PRN Reason: Per Protocol Miscellaneous Information (Potassium Per Protocol) 1 each MISCELLANE DAILY PRN ; Protocol PRN Reason: Per Protocol Miscellaneous Information (Rx Info: Iv Contrast Was Given) 1 each MISCELLANE DAILY PRN PRN Reason: Per Protocol Stop: 11/28/16 10:03 Morphine Sulfate (Morphine Sulfate (Inj)) 2 mg IVP Q4H PRN PRN Reason: Severe Pain Ondansetron HCl (Zofran) 4 mg IVP Q6HR PRN PRN Reason: Nausea And Vomiting Pantoprazole Sodium (Protonix) 40 mg IVP DAILY [facility] Last Admin: 11/26/16 08:10 Dose: 40 mg Senna/Docusate Sodium (Senokot-S) 2 each PO HS [facility] Last Admin: 11/25/16 20:25 Dose: Not Given Sodium Chloride (Saline Flush) 10 ml IV BID [facility] Last Admin: 11/26/16 08:10 Dose: 10 ml Sodium Chloride (Saline Flush) 20 ml IV Q4HR PRN PRN Reason: PICC Line Sodium Chloride (Saline Flush) 10 ml IV WEEKLY [facility] Last Admin: 11/24/16 08:46 Dose: Not Given Sodium Chloride (Saline Flush) 10 ml IV Q4HR PRN PRN Reason: PICC Line Thiamine HCl (Vitamin B-1) 100 mg PO BID [facility] Last Admin: 11/26/16 08:11 Dose: 100 mg plan: Abdominal x-rays suggestive of ileusgeneral surgery on consult Continue aggressive pulmonary toilet utilizing coughing and deep breathing, incentive spirometry, and inhalation treatments per respiratory therapy department Continue to increase activity as toleratedPT and OT following
[2016-11-26 12:35] LABS: Glucose,Whole Blood 123 mg/dL (75-99)
[2016-11-26] MEDS ORDERED: MVI, ADULT NO.4 WITH VIT K 10 ML, TRACE (CONC-1ML/DOSE) 1 ML, SODIUM ACETATE 30 MEQ, PO... IV SCH ×6 (13:00)
[2016-11-26 13:50] LABS: Glucose,Whole Blood 125 mg/dL (75-99)
[2016-11-26] MEDS: INSULIN REGULAR 100 UNIT in SODIUM CHLORIDE 0.9% 100 ML IV SCH (15:21)
--- NOTE | 2016-11-26 15:33 | CT ---
EXAMINATION TYPE: CT ChestAbdPelvis w con DATE OF EXAM: 11/26/2016 3:09 PM COMPARISON: Chest x-ray and abdominal x-ray from earlier today HISTORY: ileus and abnormal CXR. Post open cardiac procedure. CT DLP: 2072.8 mGycm. Automated Exposure Control for Dose Reduction was Utilized. CONTRAST: CT scan of the thorax, abdomen and pelvis is performed with oral and with IV Contrast, patient inject ed with 100 mL of Omnipaque 300. FINDINGS: LUNGS: There is small to moderate-sized left pleural effusion with associated compressive atelectasis in the lower lobe. No significant right-sided effusion is seen. There is dependent atelectasis in th e right lung as well as dependent atelectasis and/or consolidation in the right upper lobe abutting t he fissure. MEDIASTINUM: There are no greater than 1 cm hilar or mediastinal lymph nodes. There is [place] coronar y artery calcification. There is post CABG changes with mediastinal clips and sternal wires however p resent. There is cardiomegaly with small pericardial effusion. There is abnormal focal low density [place] units are between 20 and 30 could reflect fluid or soft tissue especially inferiorly causing some sternal diastases seen near level of xiphoid on axial image 34, mediastinitis for sternal infec tion cannot be excluded at this level. Clinical correlation advised. OTHER: There is asymmetric mild increased fluid over the right pectoralis muscle could reflect cellul itis or soft tissue infection at this level. This is centered near axial image 8 in the upper thorax . LIVER/GB: No significant abnormality is appreciated. PANCREAS: No significant abnormality is seen. SPLEEN: No significant abnormality is seen. ADRENALS: No significant abnormality is seen. KIDNEYS: Tay catheter is seen in somewhat decompressed bladder. BOWEL: There is nasogastric tube seen in decompressed stomach. There is no suspicious dilatation of s mall bowel loops. Contrast extends to cecum which is wandering in the right mid abdomen anteriorly. T erminal ileum is noted on axial image 77 posteriorly and appears unremarkable except for abnormal pos ition. There is normal contrast filled appendix seen extending to right of midline on axial image 81. There is air-fluid level in slightly prominent colon. Colon remains prominent in its entire course t o the level of the anus. Findings suggest postoperative ileus. GENITAL ORGANS: No gross abnormality seen. LYMPH NODES: No greater than 1cm abdominal or pelvic lymph nodes are appreciated. OSSEOUS STRUCTURES: No significant abnormality is seen. OTHER: There is mild to moderate diffuse soft tissue anasarca in the abdomen and pelvis. This is susp ected product of desired fluid overload state. There is mild calcified atherosclerotic change in the pelvic iliac vessels. IMPRESSION: 1. Overall nonobstructive bowel gas pattern. Diffuse colonic prominence is seen suggesting colonic il eus. Wondering cecum is noted. 2. Post CABG changes with slightly more suspicious focal fluid or soft tissue at level of lower osorio um, cannot exclude sternal infection or mediastinal infection at this level if suspected clinically. Clinical correlation advised. 3. Cardiomegaly with small pericardial effusion and small to moderate-sized left pleural effusion. Th ere is left basilar atelectasis and/or consolidation. There is posterior right upper lung atelectasis and/or consolidation.
[2016-11-26 16:02] LABS: Glucose,Whole Blood 123 mg/dL (75-99)
[2016-11-26] MEDS: LEVOFLOXACIN 750MG-D5W PMX 750 MG in DEXTROSE/WATER 1 150ML.BAG IVPB SCH (17:22)
[2016-11-26 17:59] LABS: Glucose,Whole Blood 130 mg/dL (75-99)
[2016-11-26] MEDS ORDERED: HALOPERIDOL LACTATE 5 MG/ML 1 ML VIAL IVP PRN (18:07)
[2016-11-26 19:17] LABS: Glucose,Whole Blood 127 mg/dL (75-99)
[2016-11-26] MEDS: MULTIVITAMINS, THERA LIQUID 237 ML BOTTLE PO SCH (19:35)
[2016-11-26 20:19] LABS: Glucose,Whole Blood 129 mg/dL (75-99)
[2016-11-26] MEDS: SENNOSIDES-DOCUSATE SODIUM 1 EACH TAB PO SCH (20:56)
[2016-11-26 21:10] LABS: Glucose,Whole Blood 135 mg/dL (75-99)
[2016-11-26 22:00] LABS: Glucose,Whole Blood 121 mg/dL (75-99)
[2016-11-26 22:41] LABS: Magnesium 2.6 mg/dL (1.6-2.3); Phosphorous 2.3 mg/dL (2.5-4.5)
[2016-11-26 23:17] LABS: Glucose,Whole Blood 109 mg/dL (75-99)
[2016-11-27] MEDS: D5-0.45% NACL WITH KCL 20MEQ/L 1,000 ML IV SCH ×2 (00:19→21:17)
[2016-11-27] MEDS: METOCLOPRAMIDE 5 MG/ML 2 ML VIAL IVP SCH ×4 (00:19→17:44)
[2016-11-27 00:20] LABS: Glucose,Whole Blood 128 mg/dL (75-99)
[2016-11-27 01:07] LABS: Glucose,Whole Blood 133 mg/dL (75-99)
[2016-11-27 02:27] LABS: Glucose,Whole Blood 132 mg/dL (75-99)
[2016-11-27 04:19] LABS: Glucose,Whole Blood 155 mg/dL (75-99)
[2016-11-27 04:43] LABS: Basophils % (A) 0 %; CH 32.1; CHCM 33.1; Eosinophils # (A) 0.3 k/uL (0-0.7); Eosinophils % (A) 3 %; HCT 26.5 % (39.0-53.0); HDW 2.92; HGB 8.6 gm/dL (13.0-17.5); Luc # (Auto) 0.23; Luc % (Auto) 2; Lymphocytes # (A) 1.9 k/uL (1.0-4.8); Lymphocytes % (A) 19 %; MCH 31.8 pg (25.0-35.0); MCHC 32.5 g/dL (31.0-37.0); MCV 97.8 fL (80.0-100.0); Mean Platelet Volume 7.5; Monocytes # (A) 0.7 k/uL (0-1.0); Monocytes % (A) 7 %; Neutrophils # (A) 7.3 k/uL (1.3-7.7); Neutrophils % (A) 70 %; RBC 2.71 m/uL (4.30-5.90); RDW 14.6 % (11.5-15.5); WBC 10.5 k/uL (3.8-10.6); WBC (Perox) 10.16
[2016-11-27 05:21] LABS: Anion Gap 6 mmol/L; Blood Urea Nitrogen 14 mg/dL (9-20); Calcium 8.1 mg/dL (8.4-10.2); Carbon Dioxide 24 mmol/L (22-30); Chloride 107 mmol/L (98-107); Glucose 132 mg/dL (74-99); Magnesium 2.1 mg/dL (1.6-2.3); Non-African American GFR(MDRD) >60 (>60 ml/min/1.73 sqM); Potassium 3.9 mmol/L (3.5-5.1); Sodium 137 mmol/L (137-145)
[2016-11-27 06:40] LABS: Glucose,Whole Blood 137 mg/dL (75-99)
[2016-11-27] MEDS: IPRATROPIUM-ALBUTEROL 3 ML NEB INHALATION SCH ×4 (07:37→20:04)
[2016-11-27] MEDS: BUDESONIDE 1 MG/2 ML NEBU INHALATION SCH ×2 (07:37→20:05)
--- NOTE | 2016-11-27 07:38 | XR ---
EXAMINATION TYPE: XR chest 1V portable DATE OF EXAM: 11/27/2016 6:29 AM CLINICAL HISTORY: Difficulty breathing progress study. TECHNIQUE: Single AP portable upright view of the chest is obtained. COMPARISON: Chest x-ray and CT cap from one day earlier FINDINGS: A nasogastric tube and left-sided PICC line are stable in appearance. Sternal wires and me diastinal clips from CABG procedure are redemonstrated. There is persistent cardiomegaly with small l eft pleural effusion and left basilar atelectasis and/or infiltrate redemonstrated. Osseous structure s are intact. IMPRESSION: Overall stable findings, cardiomegaly with small left pleural effusion and left basilar atelectasis and/or infiltrate all redemonstrated.
[2016-11-27 08:04] LABS: Glucose,Whole Blood 131 mg/dL (75-99)
[2016-11-27] MEDS: POTASSIUM CHLORIDE 10 MEQ in WATER FOR INJECTION 1 100ML.BAG IVPB SCH ×2 (08:08→09:12)
[2016-11-27] MEDS: METOPROLOL TARTRATE 25 MG TAB PO SCH ×3 (08:09→21:17)
[2016-11-27] MEDS: PANTOPRAZOLE 40 MG/10 ML VIAL IVP SCH (08:09)
[2016-11-27] MEDS: ATORVASTATIN 40 MG TAB PO SCH (08:10)
[2016-11-27] MEDS: DIGOXIN 250 MCG TAB OG-TUBE SCH (08:10)
[2016-11-27] MEDS: LISINOPRIL 10 MG TAB PO SCH ×2 (08:10→21:17)
[2016-11-27] MEDS: ASPIRIN 325 MG TAB PO SCH (08:10)
[2016-11-27] MEDS: THIAMINE 100 MG TAB PO SCH ×2 (08:10→21:17)
[2016-11-27] MEDS: AMIODARONE 200 MG TAB PO SCH ×2 (08:10→21:17)
[2016-11-27 09:08] LABS: Glucose,Whole Blood 144 mg/dL (75-99)
[2016-11-27 10:17] LABS: Glucose,Whole Blood 130 mg/dL (75-99)
--- NOTE | 2016-11-27 10:39 | P.PN ---
Subjective 61-year-old male patient with status post carotid bypass surgery and the patient is postop day #11. The patient has failed to wean off the mechanical ventilator. Immediately postop the patient had pulmonate complications including mucous plugs and atelectasis of the left lung. He required bronchoscopy and therapeutic airway suctioning and all of the respiratory cultures came back negative. This morning, the patient was on a volume cycled assist-control mode of ventilation at the rate of 20, tidal volume 450, FiO2 of 40% and a PEEP of 5. I reviewed the blood gases and I reviewed also the chest x -ray. I noted that the patient was unable to tolerate assist-control mode. Attempts to wean him off the sedation Emily as the patient was becoming restless and a successful the mechanical ventilator. Based on this, I switched this patient to a pressure support mode of ventilation and I was able to completely wean him off sedation. He was wide awake all he was hardly able to wiggle his toes or move his fingers and he was unable to raise his had or arms against gravity. He was having copious amount of rest or secretions and he was requiring frequent suctioning. At a later stage, switch this patient to a pressure control mode of ventilation with a PEEP of 7 and a pressure control of 20 and his FiO2 was At 60%. He remains hemodynamically stable. He is producing adequate amount of urine output. No pressors at this point. No fever. No chills. Chest tubes have been all removed. He is tolerating tube feeds. Atelectatic discussion with the cardiothoracic surgeon and will plan to proceed with a PEG and trach if the patient ultimately failed weaning. 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 On 11/22/2016 the patient remains intubated on a mechanical ventilator. I was able to the sedation completely on the patient. He is awake at this point and he had been awake throughout the night. He is following simple commands. Motor functions are nearly absent. The patient is extremely weak. He can wiggle his toes and occasionally bend his knees. Otherwise he cannot raise his arms and legs against gravity. He has a cough reflex. He can blink his eyes and raises eyebrows. Reflexes are significantly diminished in the upper and lower extremities bilaterally. Is on a pressure control mode of ventilation at the rate of 18, PC 18, PEEP of 7 and FiO2 of 50%. Still having significant respiratory secretions through the orotracheal tube. The chest x-ray from today shows moderate parenchymal opacity within the left lung base and the right lung base. There is some atelectatic changes in the lung bases more so on the left. The patient has also postop changes related to coronary artery bypass surgery. No fever. No chills. Hemodynamically stable. Producing adequate amount of urine output and the patient was diuresis with a combination of albumin and Lasix. He is on tube feeds. On 11/23/2016 the patient remains on a mechanical ventilator. Seems to be much more awake compared to yesterday. Motor functions remain weak over the patient is doing more activity and movement on today's evaluation. We were able to bring the patient is sitting up position for a total of 2 hours today. He tolerated well and following that he had a coughing spells and he had to be placed in bed. He remains in the same vent setting with a pressure control of 18, PEEP of 7, FiO2 of 50% and rate of 18. Chest x-ray shows adequate expansion of the left lung with a few being in good location. Sputum analysis showed Moraxella catarrhalis and the based on that the patient was started on Levaquin. Note that he had also Klebsiella PNEUMONIA IN HIS URINE, AND BOTH OF THESE MICROORGANISMS SHOULD RESPOND TO LEVAQUIN. Meanwhile, the patient is receiving enteral feeding for nutritional support. IV Solu Medrol is been discontinued. We'll doing daily physical therapy and passive range of motion. He remains on IV heparin. He remains on IV insulin for blood sugar control. Morning blood gases showed a pH of 7.51 with a pCO2 of 26 and pO2 of 79. Weaning parameters are still poor as the patient has rapid shallow breathing index around 120 and the patient becomes tachypneic and the LOW tidal volumes. On 11/24/2016 the patient is being seen in follow-up. Earlier this morning the patient was still mechanical ventilator on a pressure control mode. Chest x- ray from earlier this morning showed no significant abnormalities. There was improvement in aeration in lung bases bilaterally especially on the left. NG tube was still in a good location below the diaphragm. Meanwhile affect abdominal film was done this morning and that showed a component of ileus. Note that overnight, the patient's tube feeds were discontinued knowing that he had 2 bouts of emesis. Nevertheless, despite ongoing gastrointestinal abnormalities, the patient is doing very well while being on mechanical ventilator and is awake and alert. We checked his weaning parameters this morning and the numbers looked very well. He was given a pressure support of 5 and PEEP of 5 and a breathing trial for a total of 30 minutes and following that we made a decision to extubate this patient. This was a difficult decision to make knowing that the patient had an underlying abdominal ileus and he is still having significant motor weakness in the upper and lower extremities. Nevertheless, I noted that his motor function is improved his cough improved and he had very decent weaning parameters. I suspected that this will be his last chance of being extubated and if not successful, he will need a PEG and trach with the next 24 hours. Based on this, I extubated this patient. He remains on IV heparin. He remains on IV insulin. He is also on Levaquin. He is afebrile. He is awake and following commands. Motor function is gradually improving. No other new complaints otherwise for now. Noted post extubation, the patient was placed on 5 L of oxygen nasal cannula with saturation of 94-95%He continued to bleed comfortably. He was placed in sitting up position in ICU. 11/25/2016, the patient is being seen in follow-up in the intensive care unit. The patient has been extubated and has been off the mechanical ventilator for the past 24 hours. He is breathing comfortably. No significant rest or distress. NG tube is in place. There is considerable amount of output from the NG tube still in the abdomen is distended although less compared to yesterday. He had colonic ileus and some dilatation of the small bowel. A rectal tube was inserted and abdomen was quite deflated. He is producing some loose liquidy bowel movements yesterday and small amounts. Rectal examination was done and the patient does not have any impacted stool. No abdominal pain. No fever. No chills. He is in sinus rhythm for the time being and stable hemodynamics. Is producing adequate amount of urine output. All of the surgical wound sites are clean and intact. Neurologically is awake. There has been obvious improvement in the motor function and the patient is talking and communicating at this point. He remains on IV heparin. He remains on IV insulin for blood sugar control. White cell count is at 15.1. Hemoglobin is stable at 8.7. On 11/26/2016, the patient is being seen in follow-up. The patient is awake. Following commands and communicating. As mentioned earlier, profoundly weak although that has been steady and slow improvement in his motor function. NG tube in place. Abdomen remains distended. Flexeril of the abdomen shows ileus both large and small bowel. No bowel functional mobility at all over the past 12 hours. The patient is on Reglan. From the pulmonary standpoint, he is calm and comfortable. No labored breathing. Actually taking well on 3 L of oxygen by nasal cannula. The chest exit from today shows stable at ectatic changes small effusion the lung bases bilaterally. NG tube in place. Output is minimal at this point. Abdomen is tender get is soft and nontender. Bowel sounds are very hypoactive. Repeat abdominal films was reviewed and there is concern of ongoing large and small bowel ileus. He is on IV heparin. Remains on IV insulin for blood sugar control. Remains nothing by mouth for the time being. No leukocytosis. Cardiac rhythm is sinus. On 11/27/2016 I'm seeing this patient in follow-up. He is awake. He is communicating. NG tube is in place. Total amount of output from the NG tube is around 250 mL over the past 24 hours. Abdomen remains distended and tympanic and bowel sounds are hypoactive. CAT scan of the abdomen that was done showed a large bowel ileus. The patient is on Reglan. The patient was started on TPN for nutritional support. The CAT scan of the chest also showed some early dehiscence in the lower surgical incision with some surrounding swelling/hematoma. There is small better pleural effusion and atelectasis in the left lung base. No fever. No chills. Still on insulin drip. Still on a heparin drip. Right upper extremity is swollen and Artline catheter needs to be removed. Objective - Vital Signs Vital signs: Vital Signs Temp 99.5 F 11/27/16 04:00 Pulse 63 11/27/16 10:00 Resp 24 11/27/16 10:00 BP 109/70 11/27/16 10:00 Pulse Ox 96 11/27/16 10:00 Intake & Output 11/26/16 11/27/16 11/27/16 18:59 06:59 18:59 Intake Total 2617.124 354.426 475.249 Output Total 700 975 680 Balance 1917.124 -620.574 -204.751 Weight 98.9 kg 98.8 kg 98.8 kg Intake: IV 36 186 302 0.9 for pressure bag 36 36 12 Mvi, Adult No.4 with Vit 150 90 K 10 ml Trace (Conc-1Ml/ Dose) 1 ml Sodium Acetate 30 meq Potassium Chloride 20 meq Calcium Gluconate 1,000 mg In Amino Acid 5%-D25w 1,000 ml @ 30 mls/hr IV .Q24H [facility] Rx#:[id number] Potassium Chloride 10 meq 200 In Water For Injection 1 100ml.bag @ 100 mls/hr IVPB Q1H [facility] Rx#: [id number] Intake, IV Titration 1381.124 108.426 173.249 Amount D5-0.45% NaCl with KCl 80 60 20Meq/l 1,000 ml @ 20 mls /hr IV .Q24H [facility] Rx#: [id number] D5-0.45% NaCl with KCl 720 20Meq/l 1,000 ml @ 80 mls /hr IV .[id number] [facility] Rx#: [id number] Heparin Sodium,Porcine/ 500 D5w Pmx 25,000 unit In Dextrose/Water 1 500ml. bag @ 10 UNITS/KG/HR 19. 98 mls/hr IV .Q24H [facility] Rx #:[id number] Insulin Regular 100 unit 11.124 28.426 13.249 In Sodium Chloride 0.9% 100 ml @ Per Protocol IV .Q0M [facility] Rx#:[id number] Levofloxacin 750Mg-D5w 150 Pmx 750 mg In Dextrose/ Water 1 150ml.bag @ 100 mls/hr IVPB Q24H [facility] Rx#: [id number] Potassium Chloride 10 meq 100 In Water For Injection 1 100ml.bag @ 100 mls/hr IVPB Q1H [facility] Rx#: [id number] Other 1200 60 Output: Gastric Drainage 250 Urine 700 975 430 Other: Voiding Method Indwelling Catheter Indwelling Catheter Indwelling Catheter # Bowel Movements 1 1 ABP, PAP, CO, CI - Last Documented Arterial Blood Pressure 172/58 Pulmonary Artery Pressure 46/23 Cardiac Output 6.8 Cardiac Index 3.3 - Exam Head exam was generally normal. There was no scleral icterus or corneal arcus. Mucous membranes were moist.Neck was supple and without jugular venous distension, thyromegaly, or carotid bruits. Carotids were easily palpable bilaterally. There was no adenopathy. The patient has an NG tube in place and the patient has no stridor. He has some degree of crowding of the posterior oropharynx. Mucosal membranes are dry. Lung sounds are diminished in lung bases bilaterally otherwise clear. Heart sounds are regular, positive S1-S2, no cervical murmurs appreciated and sternum stable clean and intact. Abdomen is distended. This positive tympany. Bowel sounds are hypoactive. There is no direct tenderness. No rebound tensile guarding.Examination of the extremities revealed swelling in the right upper extremity compared to the left. There is trace edema lower extremities bilaterally.. There was no cyanosis, clubbing or edema. Neurologically, the patient is awake and alert. He is, indicating. No focal neurological deficit. Motor function is weak although improved compared to yesterday. The patient is able to raise his arms and legs against gravity. There is no focal neurological deficit at this point. He has a decent cough. He is also communicating and verbal. - Labs CBC & Chem 7: 11/27/16 04:30 11/27/16 04:30 Labs: Abnormal Lab Results - Last 24 Hours (Table) 11/26/16 11/26/16 11/26/16 Range/Units 04:10 12:29 13:46 RBC (4.30-5.90) m/uL Hgb (13.0-17.5) gm/dL Hct (39.0-53.0) % APTT (22.0-30.0) sec Glucose (74-99) mg/dL POC Glucose (mg/dL) 123 H 125 H (75-99) mg/dL Calcium (8.4-10.2) mg/dL Phosphorus 2.3 L (2.5-4.5) mg/dL Magnesium 2.6 H (1.6-2.3) mg/dL 11/26/16 11/26/16 11/26/16 Range/Units 15:58 17:56 19:14 RBC (4.30-5.90) m/uL Hgb (13.0-17.5) gm/dL Hct (39.0-53.0) % APTT (22.0-30.0) sec Glucose (74-99) mg/dL POC Glucose (mg/dL) 123 H 130 H 127 H (75-99) mg/dL Calcium (8.4-10.2) mg/dL Phosphorus (2.5-4.5) mg/dL Magnesium (1.6-2.3) mg/dL 11/26/16 11/26/16 11/26/16 Range/Units 20:11 21:03 21:56 RBC (4.30-5.90) m/uL Hgb (13.0-17.5) gm/dL Hct (39.0-53.0) % APTT (22.0-30.0) sec Glucose (74-99) mg/dL POC Glucose (mg/dL) 129 H 135 H 121 H (75-99) mg/dL Calcium (8.4-10.2) mg/dL Phosphorus (2.5-4.5) mg/dL Magnesium (1.6-2.3) mg/dL 11/26/16 11/27/16 11/27/16 Range/Units 23:14 00:18 01:05 RBC (4.30-5.90) m/uL Hgb (13.0-17.5) gm/dL Hct (39.0-53.0) % APTT (22.0-30.0) sec Glucose (74-99) mg/dL POC Glucose (mg/dL) 109 H 128 H 133 H (75-99) mg/dL Calcium (8.4-10.2) mg/dL Phosphorus (2.5-4.5) mg/dL Magnesium (1.6-2.3) mg/dL 11/27/16 11/27/16 11/27/16 Range/Units 02:15 04:16 04:30 RBC (4.30-5.90) m/uL Hgb (13.0-17.5) gm/dL Hct (39.0-53.0) % APTT (22.0-30.0) sec Glucose 132 H (74-99) mg/dL POC Glucose (mg/dL) 132 H 155 H (75-99) mg/dL Calcium 8.1 L (8.4-10.2) mg/dL Phosphorus (2.5-4.5) mg/dL Magnesium (1.6-2.3) mg/dL 11/27/16 11/27/16 11/27/16 Range/Units 04:30 04:30 06:38 RBC 2.71 L (4.30-5.90) m/uL Hgb 8.6 L (13.0-17.5) gm/dL Hct 26.5 L (39.0-53.0) % APTT 53.0 H (22.0-30.0) sec Glucose (74-99) mg/dL POC Glucose (mg/dL) 137 H (75-99) mg/dL Calcium (8.4-10.2) mg/dL Phosphorus (2.5-4.5) mg/dL Magnesium (1.6-2.3) mg/dL 11/27/16 11/27/16 11/27/16 Range/Units 08:02 09:05 10:13 RBC (4.30-5.90) m/uL Hgb (13.0-17.5) gm/dL Hct (39.0-53.0) % APTT (22.0-30.0) sec Glucose (74-99) mg/dL POC Glucose (mg/dL) 131 H 144 H 130 H (75-99) mg/dL Calcium (8.4-10.2) mg/dL Phosphorus (2.5-4.5) mg/dL Magnesium (1.6-2.3) mg/dL Microbiology - Last 24 Hours (Table) 11/21/16 02:00 Blood Culture - Final Blood No Growth after 144 hours Assessment and Plan Plan: Assessment 1 Coronary artery disease status post carotid bypass surgery and the patient is postop day #17 2 prolonged postoperative ventilator-dependent history failure, multifactorial. Patient has extubated. Nevertheless, the active ongoing problems for now is his neuromuscular weakness and ongoing ileus. Patient has a combination of large bowel ileus as evident on the flat film the abdomen. NG tube still in place. 3 recurrent mucous plugs with excessive respiratory secretions requiring bronchoscopy and a peak airway suctioning and a bronchoscopy cultures came back negative for any microbial growth. The most recent sputum analysis showing Moraxella catarrhalis and the patient is currently on Levaquin. Chest x-ray from today is showing atelectatic changes in lung bases bilaterally. Nevertheless the patient is oxygenating well and there is no respiratory distress at this point. 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 Despite this, the patient is having a nontoxic abdomen. No abdominal tenderness. No leukocytosis. No fever. No acidosis. NG tube is in place and the patient is still nothing by mouth. 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 Doubt infection And We should be able to sit up this patient on a cardiac chair. Keep NG tube in place. Advance TPN. Insulin drip for blood sugar control. Remove the Artline from the right upper extremity. And IV heparin. Monitor the cardiac rhythm and the patient is still having paroxysmal atrial fibrillation. Consider another rectal tube insertion for deflation of his abdominal distention/ileus. CAT scan of the chest abdomen and pelvis was noted. The patient has essentially a large bowel ileus with atelectatic changes and small effusion the left lung base. These are essentially postsurgical changes in the chest. Continue aggressive physical therapy as the patient shows crit limits per neuropathy and myopathy which is slowly improving. Continue rest of the supportive care. The patient be kept in ICU. Gen. surgery, CT surgery, pulmonary and cardiology on the case.
[2016-11-27 10:53] LABS: Glucose,Whole Blood 122 mg/dL (75-99)
[2016-11-27 12:27] LABS: Glucose,Whole Blood 122 mg/dL (75-99)
[2016-11-27] MEDS ORDERED: MVI, ADULT NO.4 WITH VIT K 10 ML, TRACE (CONC-1ML/DOSE) 1 ML, SODIUM ACETATE 30 MEQ, PO... IV SCH ×6 (13:00)
--- NOTE | 2016-11-27 13:02 | P.PN ---
Subjective Principal diagnosis: Coronary artery disease, status post prior stenting to his right coronary artery. Preserved left ventricular function. Hyperlipidemia. Hypertension. ETOH abuse. POD #17 total arterial non-aortic patch off-pump double coronary artery bypass grafting using in situ skeletonized right internal mammary artery to the left anterior descending artery across the anterior midline in situ totally skeletonized left internal mammary artery to the first obtuse marginal artery. Intraoperative transesophageal echocardiogram and epi-aortic scanning. Intraoperative graft flow measurements using the [employer] system POD #17 flexible bronchoscopy with bronchial washings secondary to postoperative mucous plugging with increasing oxygen demand the night of surgery. Sputum culture grew out Moraxella, blood cultures are negative to date , urine culture grew Klebsiella. Patient placed on Levaquin per pulmonology. Pt developed postoperative alcohol withdrawal requiring increased sedation and prolonged mechanical ventilation. Patient currently sitting up in bed in no apparent distress. Currently extubated on 4 L nasal cannula with generalized weakness. Objective - Vital Signs Vital signs: Vital Signs Temp 99.5 F 11/27/16 04:00 Pulse 68 11/27/16 09:00 Resp 17 11/27/16 09:00 BP 119/75 11/27/16 09:00 Pulse Ox 94 L 11/27/16 09:00 Intake & Output 11/26/16 11/27/16 11/27/16 18:59 06:59 18:59 Intake Total 2617.124 354.426 417.649 Output Total 700 975 550 Balance 1917.124 -620.574 -132.351 Weight 98.9 kg 98.8 kg 98.8 kg Intake: IV 36 186 269 0.9 for pressure bag 36 36 9 Mvi, Adult No.4 with Vit 150 60 K 10 ml Trace (Conc-1Ml/ Dose) 1 ml Sodium Acetate 30 meq Potassium Chloride 20 meq Calcium Gluconate 1,000 mg In Amino Acid 5%-D25w 1,000 ml @ 30 mls/hr IV .Q24H [facility] Rx#:[id number] Potassium Chloride 10 meq 200 In Water For Injection 1 100ml.bag @ 100 mls/hr IVPB Q1H [facility] Rx#: [id number] Intake, IV Titration 1381.124 108.426 148.649 Amount D5-0.45% NaCl with KCl 80 40 20Meq/l 1,000 ml @ 20 mls /hr IV .Q24H [facility] Rx#: [id number] D5-0.45% NaCl with KCl 720 20Meq/l 1,000 ml @ 80 mls /hr IV .[id number] [facility] Rx#: [id number] Heparin Sodium,Porcine/ 500 D5w Pmx 25,000 unit In Dextrose/Water 1 500ml. bag @ 10 UNITS/KG/HR 19. 98 mls/hr IV .Q24H [facility] Rx #:[id number] Insulin Regular 100 unit 11.124 28.426 8.649 In Sodium Chloride 0.9% 100 ml @ Per Protocol IV .Q0M [facility] Rx#:[id number] Levofloxacin 750Mg-D5w 150 Pmx 750 mg In Dextrose/ Water 1 150ml.bag @ 100 mls/hr IVPB Q24H [facility] Rx#: [id number] Potassium Chloride 10 meq 100 In Water For Injection 1 100ml.bag @ 100 mls/hr IVPB Q1H [facility] Rx#: [id number] Other 1200 60 Output: Gastric Drainage 250 Urine 700 975 300 Other: Voiding Method Indwelling Catheter Indwelling Catheter Indwelling Catheter # Bowel Movements 1 1 ABP, PAP, CO, CI - Last Documented Arterial Blood Pressure 172/58 Pulmonary Artery Pressure 46/23 Cardiac Output 6.8 Cardiac Index 3.3 - Constitutional General appearance: Present: cooperative, no acute distress - Respiratory Details: Lungs sounds diminished bilaterally. Respirations even, nonlabored. Currently on 4 L nasal cannula. Able to achieve 750 mL on his incentive spirometry. Weak cough present. Chest x-ray reviewed. - Cardiovascular Details: S1, S2 present. Irregular, tachycardia rate and rhythm, uncontrolled A. fib on telemetry. Sternum stable. Heart hugger in place with patient unable to demonstrate appropriate use. No edema present. Teds/SCDs present. Left arm PICC line as well as right radial arterial line remain present. - Gastrointestinal Gastrointestinal Comment(s): Abdomen soft, nontender, slightly distended. Hypoactive bowel sounds present. NG tube present lower intermittent suction. Patient currently receiving enteral support via PICC line. - Genitourinary Genitourinary Comment(s): Tay present draining clear, yellow urine. Approximately 75 mL per hour. - Integumentary Integumentary Comment(s): Anterior chest incision covered dry intact dressing. - Musculoskeletal Musculoskeletal: Present: generalized weakness - Psychiatric Psychiatric: Present: A&O x's 3, appropriate affect, intact judgment & insight - Allied health notes Allied health notes reviewed: nursing - Labs CBC & Chem 7: 11/27/16 04:30 11/27/16 04:30 Labs: Abnormal Lab Results - Last 24 Hours (Table) 11/26/16 11/26/16 11/26/16 Range/Units 04:10 12:29 13:46 RBC (4.30-5.90) m/uL Hgb (13.0-17.5) gm/dL Hct (39.0-53.0) % APTT (22.0-30.0) sec Glucose (74-99) mg/dL POC Glucose (mg/dL) 123 H 125 H (75-99) mg/dL Calcium (8.4-10.2) mg/dL Phosphorus 2.3 L (2.5-4.5) mg/dL Magnesium 2.6 H (1.6-2.3) mg/dL 11/26/16 11/26/16 11/26/16 Range/Units 15:58 17:56 19:14 RBC (4.30-5.90) m/uL Hgb (13.0-17.5) gm/dL Hct (39.0-53.0) % APTT (22.0-30.0) sec Glucose (74-99) mg/dL POC Glucose (mg/dL) 123 H 130 H 127 H (75-99) mg/dL Calcium (8.4-10.2) mg/dL Phosphorus (2.5-4.5) mg/dL Magnesium (1.6-2.3) mg/dL 11/26/16 11/26/16 11/26/16 Range/Units 20:11 21:03 21:56 RBC (4.30-5.90) m/uL Hgb (13.0-17.5) gm/dL Hct (39.0-53.0) % APTT (22.0-30.0) sec Glucose (74-99) mg/dL POC Glucose (mg/dL) 129 H 135 H 121 H (75-99) mg/dL Calcium (8.4-10.2) mg/dL Phosphorus (2.5-4.5) mg/dL Magnesium (1.6-2.3) mg/dL 11/26/16 11/27/16 11/27/16 Range/Units 23:14 00:18 01:05 RBC (4.30-5.90) m/uL Hgb (13.0-17.5) gm/dL Hct (39.0-53.0) % APTT (22.0-30.0) sec Glucose (74-99) mg/dL POC Glucose (mg/dL) 109 H 128 H 133 H (75-99) mg/dL Calcium (8.4-10.2) mg/dL Phosphorus (2.5-4.5) mg/dL Magnesium (1.6-2.3) mg/dL 11/27/16 11/27/16 11/27/16 Range/Units 02:15 04:16 04:30 RBC (4.30-5.90) m/uL Hgb (13.0-17.5) gm/dL Hct (39.0-53.0) % APTT (22.0-30.0) sec Glucose 132 H (74-99) mg/dL POC Glucose (mg/dL) 132 H 155 H (75-99) mg/dL Calcium 8.1 L (8.4-10.2) mg/dL Phosphorus (2.5-4.5) mg/dL Magnesium (1.6-2.3) mg/dL 11/27/16 11/27/16 11/27/16 Range/Units 04:30 04:30 06:38 RBC 2.71 L (4.30-5.90) m/uL Hgb 8.6 L (13.0-17.5) gm/dL Hct 26.5 L (39.0-53.0) % APTT 53.0 H (22.0-30.0) sec Glucose (74-99) mg/dL POC Glucose (mg/dL) 137 H (75-99) mg/dL Calcium (8.4-10.2) mg/dL Phosphorus (2.5-4.5) mg/dL Magnesium (1.6-2.3) mg/dL 11/27/16 11/27/16 Range/Units 08:02 09:05 RBC (4.30-5.90) m/uL Hgb (13.0-17.5) gm/dL Hct (39.0-53.0) % APTT (22.0-30.0) sec Glucose (74-99) mg/dL POC Glucose (mg/dL) 131 H 144 H (75-99) mg/dL Calcium (8.4-10.2) mg/dL Phosphorus (2.5-4.5) mg/dL Magnesium (1.6-2.3) mg/dL Microbiology - Last 24 Hours (Table) 11/21/16 02:00 Blood Culture - Final Blood No Growth after 144 hours - Imaging and Cardiology Chest x-ray: report reviewed, image reviewed CT scan - abdomen: report reviewed, image reviewed Assessment and Plan (1) Status post coronary artery bypass graft Status: Acute (2) Coronary artery disease Status: Acute (3) Family history of heart disease Status: Acute (4) History of PTCA Status: Acute (5) Hyperlipidemia Status: Acute (6) Hypertension Status: Acute (7) Nicotine dependence, chewing tobacco, uncomplicated Status: Acute Plan: 1. Continue ASA, Lipitor, heparin, Lopressor, lisinopril, digoxin. 2. Continue amiodarone for atrial fibrillation. 3. Wean O2 as tolerated. 4. Continue TPN for now. 5. Insulin/diabetic management per primary care service. 6. Continue antibiotics per pulmonology. 7. Increase activity, out of bed to chair. Physical therapy following. 8. Daily labs, chest x-rays. 9. GI/DVT prophylaxis. 10. More recommendations as patient progresses.
[2016-11-27 13:07] LABS: Glucose,Whole Blood 129 mg/dL (75-99)
--- NOTE | 2016-11-27 13:33 | P.PN ---
Progress Note - Text The patient is sitting in his chair. He has no complaints of abdominal pain. He had a large bowel movement early this morning. On exam his vital signs are stable. His abdomen is soft. It is mildly distended. There is no significant tenderness. Improving colonic ileus. No surgical intervention is planned.
[2016-11-27 15:11] LABS: Glucose,Whole Blood 128 mg/dL (75-99)
[2016-11-27] MEDS ORDERED: FUROSEMIDE 10 MG/ML 4 ML VIAL ONE (15:19)
--- NOTE | 2016-11-27 16:16 | P.PN ---
Progress Note - Text This is a 61-year-old gentleman who is status post prior to coronary bypass surgery. Patient had a prolonged stay in ICU on mechanical ventilator support. He is also had some neuromuscular weakness. The patient was in and out atrial fibrillation with RVR. He is on metoprolol, amiodarone, and digoxin. The blood pressure has been stable. I am going to increase the dose of metoprolol 25 mg by mouth 3 times a day and follow-up with the patient.
[2016-11-27 16:55] LABS: Glucose,Whole Blood 170 mg/dL (75-99)
[2016-11-27] MEDS: LEVOFLOXACIN 750MG-D5W PMX 750 MG in DEXTROSE/WATER 1 150ML.BAG IVPB SCH (18:03)
[2016-11-27 18:29] LABS: Glucose,Whole Blood 116 mg/dL (75-99)
[2016-11-27 19:03] LABS: Glucose,Whole Blood 158 mg/dL (75-99)
[2016-11-27 20:23] LABS: Glucose,Whole Blood 147 mg/dL (75-99)
[2016-11-27] MEDS: SENNOSIDES-DOCUSATE SODIUM 1 EACH TAB PO SCH (21:15)
[2016-11-27] MEDS: FUROSEMIDE 10 MG/ML 2 ML VIAL IV SCH (21:20)
[2016-11-27 21:33] LABS: Glucose,Whole Blood 143 mg/dL (75-99)
[2016-11-27] MEDS: 1: MVI, ADULT NO.4 WITH VIT K 10 ML, TRACE (CONC-1ML/DOSE) 1 ML in AMINO ACID 5%-D25W+LY IV SCH ×3 (21:50)
[2016-11-27 23:09] LABS: Glucose,Whole Blood 152 mg/dL (75-99)
[2016-11-28 00:11] LABS: Glucose,Whole Blood 138 mg/dL (75-99)
[2016-11-28] MEDS ORDERED: Potassium Replacement Protocol 1 EACH MISC MISCELLANE PRN ×2 (00:47→05:27)
[2016-11-28] MEDS ORDERED: POTASSIUM CHLORIDE ORAL LIQUID 40 MEQ/30 ML CUP NG-TUBE SCH ×2 (01:00→06:00)
[2016-11-28] MEDS: METOCLOPRAMIDE 5 MG/ML 2 ML VIAL IVP SCH ×4 (01:18→17:31)
[2016-11-28 01:30] LABS: Glucose,Whole Blood 139 mg/dL (75-99)
[2016-11-28] MEDS: INSULIN REGULAR 100 UNIT in SODIUM CHLORIDE 0.9% 100 ML IV SCH (02:59)
[2016-11-28 03:01] LABS: Glucose,Whole Blood 146 mg/dL (75-99)
[2016-11-28 04:47] LABS: Glucose,Whole Blood 128 mg/dL (75-99)
[2016-11-28 05:03] LABS: Basophils % (A) 0 %; CH 32.5; CHCM 33.9; Eosinophils # (A) 0.3 k/uL (0-0.7); Eosinophils % (A) 3 %; HDW 3.07; HGB 8.8 gm/dL (13.0-17.5); Luc # (Auto) 0.31; Luc % (Auto) 3; Lymphocytes # (A) 1.8 k/uL (1.0-4.8); Lymphocytes % (A) 18 %; MCH 32.6 pg (25.0-35.0); MCHC 33.8 g/dL (31.0-37.0); MCV 96.3 fL (80.0-100.0); Mean Platelet Volume 7.4; Monocytes # (A) 0.7 k/uL (0-1.0); Monocytes % (A) 7 %; Neutrophils # (A) 6.9 k/uL (1.3-7.7); Neutrophils % (A) 68 %; RDW 14.6 % (11.5-15.5); WBC 10.1 k/uL (3.8-10.6); WBC (Perox) 10.46
[2016-11-28 05:25] LABS: Anion Gap 6 mmol/L; Blood Urea Nitrogen 12 mg/dL (9-20); Calcium 8.2 mg/dL (8.4-10.2); Carbon Dioxide 27 mmol/L (22-30); Chloride 104 mmol/L (98-107); Glucose 129 mg/dL (74-99); Magnesium 1.8 mg/dL (1.6-2.3); Non-African American GFR(MDRD) >60 (>60 ml/min/1.73 sqM); Phosphorous 4.1 mg/dL (2.5-4.5); Potassium 3.7 mmol/L (3.5-5.1); Sodium 137 mmol/L (137-145)
[2016-11-28 06:25] LABS: Glucose,Whole Blood 160 mg/dL (75-99)
--- NOTE | 2016-11-28 07:23 | XR ---
EXAMINATION TYPE: XR chest 1V portable DATE OF EXAM: 11/28/2016 6:42 AM HISTORY: Post Op CABG COMPARISON: 11/27/2016 TECHNIQUE: Single view of the chest is submitted. FINDINGS: Endotracheal, NG tube and left-sided PICC line are in place. Post operative changes of CABG. No sizeable pneumothorax. Stable left basilar opacity. The heart is enlarged. IMPRESSION: 1. Stable chest
[2016-11-28 08:06] LABS: Glucose,Whole Blood 182 mg/dL (75-99)
[2016-11-28] MEDS: BUDESONIDE 1 MG/2 ML NEBU INHALATION SCH ×2 (08:57→20:29)
[2016-11-28] MEDS: IPRATROPIUM-ALBUTEROL 3 ML NEB INHALATION SCH ×4 (08:57→20:29)
--- NOTE | 2016-11-28 09:35 | P.PN ---
Progress Note - Text This is a 61-year-old gentleman who is status post prior to coronary bypass surgery. Patient had a prolonged stay in ICU on mechanical ventilator support. He is also had some neuromuscular weakness. The patient was in and out atrial fibrillation with RVR. He is on metoprolol, amiodarone, and digoxin. The blood pressure has been stable. Yesterday I did increase the dose of metoprolol to 25 mg by mouth 3 times a day. This area morning the patient converted to normal sinus mechanism. He continues to be on Coumadin for anticoagulation.
[2016-11-28] MEDS: AMIODARONE 200 MG TAB PO SCH ×2 (09:41→20:01)
[2016-11-28] MEDS: ASPIRIN 325 MG TAB PO SCH (09:42)
[2016-11-28] MEDS: ATORVASTATIN 40 MG TAB PO SCH (09:42)
--- NOTE | 2016-11-28 09:42 | US ---
EXAMINATION TYPE: US venous doppler duplex UE RT DATE OF EXAM: 11/28/2016 9:32 AM COMPARISON: NONE CLINICAL HISTORY: swollen right arm. Right lower arm edema SIDE PERFORMED: right Right Arm: NO evidence of DVT as visualized. Limited evaluation of Cephalic vein IMPRESSION: No evidence for right upper extremity DVT.
[2016-11-28] MEDS: PANTOPRAZOLE 40 MG/10 ML VIAL IVP SCH (09:43)
[2016-11-28] MEDS: FUROSEMIDE 10 MG/ML 2 ML VIAL IV SCH ×2 (09:43→20:01)
[2016-11-28] MEDS: THIAMINE 100 MG TAB PO SCH ×2 (09:43→20:02)
[2016-11-28] MEDS: DIGOXIN 250 MCG TAB OG-TUBE SCH (09:43)
[2016-11-28] MEDS: HEPARIN SODIUM,PORCINE/D5W PMX 25,000 UNIT in DEXTROSE/WATER 1 500ML.BAG IV SCH (09:44)
[2016-11-28] MEDS: LISINOPRIL 10 MG TAB PO SCH ×2 (10:32→20:01)
[2016-11-28] MEDS: 1: MVI, ADULT NO.4 WITH VIT K 10 ML, TRACE (CONC-1ML/DOSE) 1 ML in AMINO ACID 5%-D25W+LY IV SCH ×6 (10:32→23:26)
[2016-11-28 10:37] LABS: Glucose,Whole Blood 180 mg/dL (75-99)
--- NOTE | 2016-11-28 12:19 | P.PN ---
Subjective Principal diagnosis: Coronary artery disease, status post prior stenting to his right coronary artery. Preserved left ventricular function. Hyperlipidemia. Hypertension. ETOH abuse. POD #18 total arterial non-aortic patch off-pump double coronary artery bypass grafting using in situ skeletonized right internal mammary artery to the left anterior descending artery across the anterior midline in situ totally skeletonized left internal mammary artery to the first obtuse marginal artery. Intraoperative transesophageal echocardiogram and epi-aortic scanning. Intraoperative graft flow measurements using the [employer] system POD #18 flexible bronchoscopy with bronchial washings secondary to postoperative mucous plugging with increasing oxygen demand the night of surgery. Sputum culture grew out Moraxella, blood cultures are negative to date , urine culture grew Klebsiella. Patient placed on Levaquin per pulmonology. Pt developed postoperative alcohol withdrawal requiring increased sedation and prolonged mechanical ventilation. Patient developed postoperative ileus. Currently receiving TPN for nutrition. General surgery and consult, no intervention at this time. Patient currently sitting up in chair in no apparent distress. Denies any new questions or concerns. States he is feeling better every day. Objective - Vital Signs Vital signs: Vital Signs Temp 98.6 F 11/28/16 04:00 Pulse 75 11/28/16 11:00 Resp 21 11/28/16 11:00 BP 140/70 11/28/16 11:00 Pulse Ox 96 11/28/16 11:00 Intake & Output 11/27/16 11/28/16 11/28/16 18:59 06:59 18:59 Intake Total 666.400 9390.340 460.452 Output Total 1855 2215 370 Balance -932.512 -563.660 90.452 Weight 98.8 kg 98.6 kg Intake: IV 566 1078 395 0.9 for pressure bag 36 3 Mvi, Adult No.4 with Vit 330 855 375 K 10 ml Trace (Conc-1Ml/ Dose) 1 ml Sodium Acetate 30 meq Potassium Chloride 20 meq Calcium Gluconate 1,000 mg In Amino Acid 5%-D25w 1,000 ml @ 30 mls/hr IV .Q24H [facility] Rx#:[id number] Potassium Chloride 10 meq 200 220 20 In Water For Injection 1 100ml.bag @ 100 mls/hr IVPB Q1H [facility] Rx#: [id number] Intake, IV Titration 356.488 573.340 65.452 Amount D5-0.45% NaCl with KCl 220 20 40 20Meq/l 1,000 ml @ 20 mls /hr IV .Q24H [facility] Rx#: [id number] Heparin Sodium,Porcine/ 500 D5w Pmx 25,000 unit In Dextrose/Water 1 500ml. bag @ 10 UNITS/KG/HR 19. 98 mls/hr IV .Q24H [facility] Rx #:[id number] Insulin Regular 100 unit 36.488 53.340 25.452 In Sodium Chloride 0.9% 100 ml @ Per Protocol IV .Q0M [facility] Rx#:[id number] Potassium Chloride 10 meq 100 In Water For Injection 1 100ml.bag @ 100 mls/hr IVPB Q1H [facility] Rx#: [id number] Output: Gastric Drainage 250 Urine 1605 2215 370 Other: Voiding Method Indwelling Catheter Indwelling Catheter # Bowel Movements 1 ABP, PAP, CO, CI - Last Documented Arterial Blood Pressure 172/58 Pulmonary Artery Pressure 46/23 Cardiac Output 6.8 Cardiac Index 3.3 - Constitutional General appearance: Present: cooperative, no acute distress - Respiratory Details: Lungs sounds diminished bilaterally with coarse breath sounds and expiratory wheeze. Respirations even, nonlabored. Currently on 2 L nasal cannula. Able to achieve 750 mL on his incentive's premature. Effective cough. - Cardiovascular Details: S1, S2 present. Regular rate and rhythm, normal sinus rhythm on telemetry. Superior sternal area remained stable, movement can be felt in the inferior border when patient coughs. Heart hugger in place with patient unable to demonstrate appropriate use. Teds/SCDs present. - Gastrointestinal Gastrointestinal Comment(s): Abdomen soft, nontender, slightly distended. Active bowel sounds present. Currently receiving TPN. NG tube to low intermittent suction with 250 mL output in 24 hours. - Genitourinary Genitourinary Comment(s): Tay present draining clear yellow urine. Approximately 120-225 L/h since being started on IV Lasix. - Musculoskeletal Musculoskeletal: Present: generalized weakness - Psychiatric Psychiatric: Present: A&O x's 3, appropriate affect, intact judgment & insight - Allied health notes Allied health notes reviewed: nursing - Labs CBC & Chem 7: 11/28/16 04:45 11/28/16 04:45 Labs: Abnormal Lab Results - Last 24 Hours (Table) 11/27/16 11/27/16 11/27/16 Range/Units 12:25 13:04 15:07 RBC (4.30-5.90) m/uL Hgb (13.0-17.5) gm/dL Hct (39.0-53.0) % APTT (22.0-30.0) sec Glucose (74-99) mg/dL POC Glucose (mg/dL) 122 H 129 H 128 H (75-99) mg/dL Calcium (8.4-10.2) mg/dL 11/27/16 11/27/16 11/27/16 Range/Units 16:48 18:10 18:59 RBC (4.30-5.90) m/uL Hgb (13.0-17.5) gm/dL Hct (39.0-53.0) % APTT (22.0-30.0) sec Glucose (74-99) mg/dL POC Glucose (mg/dL) 170 H 116 H 158 H (75-99) mg/dL Calcium (8.4-10.2) mg/dL 11/27/16 11/27/16 11/27/16 Range/Units 20:10 21:31 23:07 RBC (4.30-5.90) m/uL Hgb (13.0-17.5) gm/dL Hct (39.0-53.0) % APTT (22.0-30.0) sec Glucose (74-99) mg/dL POC Glucose (mg/dL) 147 H 143 H 152 H (75-99) mg/dL Calcium (8.4-10.2) mg/dL 11/28/16 11/28/16 11/28/16 Range/Units 00:10 01:17 02:59 RBC (4.30-5.90) m/uL Hgb (13.0-17.5) gm/dL Hct (39.0-53.0) % APTT (22.0-30.0) sec Glucose (74-99) mg/dL POC Glucose (mg/dL) 138 H 139 H 146 H (75-99) mg/dL Calcium (8.4-10.2) mg/dL 11/28/16 11/28/16 11/28/16 Range/Units 04:44 04:45 04:45 RBC 2.70 L (4.30-5.90) m/uL Hgb 8.8 L (13.0-17.5) gm/dL Hct 26.0 L (39.0-53.0) % APTT (22.0-30.0) sec Glucose 129 H (74-99) mg/dL POC Glucose (mg/dL) 128 H (75-99) mg/dL Calcium 8.2 L (8.4-10.2) mg/dL 11/28/16 11/28/16 11/28/16 Range/Units 04:45 06:23 08:05 RBC (4.30-5.90) m/uL Hgb (13.0-17.5) gm/dL Hct (39.0-53.0) % APTT 46.3 H (22.0-30.0) sec Glucose (74-99) mg/dL POC Glucose (mg/dL) 160 H 182 H (75-99) mg/dL Calcium (8.4-10.2) mg/dL 11/28/16 Range/Units 10:34 RBC (4.30-5.90) m/uL Hgb (13.0-17.5) gm/dL Hct (39.0-53.0) % APTT (22.0-30.0) sec Glucose (74-99) mg/dL POC Glucose (mg/dL) 180 H (75-99) mg/dL Calcium (8.4-10.2) mg/dL - Imaging and Cardiology Chest x-ray: report reviewed, image reviewed Assessment and Plan (1) Status post coronary artery bypass graft Status: Acute (2) Coronary artery disease Status: Acute (3) Family history of heart disease Status: Acute (4) History of PTCA Status: Acute (5) Hyperlipidemia Status: Acute (6) Hypertension Status: Acute (7) Nicotine dependence, chewing tobacco, uncomplicated Status: Acute Plan: 1. Continue ASA, Lipitor, heparin, Lopressor, lisinopril, digoxin. 2. Continue amiodarone for atrial fibrillation prophylaxis. 3. Wean O2 as tolerated. 4. Lasix 20 mg IV push every 12 hours started yesterday. 5. Continue TPN for until patient able to tolerate oral intake. 6. Insulin/diabetic management per primary care service. 7. Continue antibiotics per pulmonology. 8. Increase activity, out of bed to chair. Physical therapy following. 9. Daily labs, chest x-rays. 10. GI/DVT prophylaxis. Time with Patient: Greater than 30
[2016-11-28 12:21] LABS: Glucose,Whole Blood 133 mg/dL (75-99)
[2016-11-28] MEDS: METOPROLOL TARTRATE 50 MG TAB PO SCH ×2 (12:37→20:02)
[2016-11-28 14:07] LABS: Glucose,Whole Blood 139 mg/dL (75-99)
--- NOTE | 2016-11-28 15:25 | P.PN ---
Subjective Principal diagnosis: Status post CABG, postoperative day #18 61-year-old male patient with status post carotid bypass surgery and the patient is postop day #11. The patient has failed to wean off the mechanical ventilator. Immediately postop the patient had pulmonate complications including mucous plugs and atelectasis of the left lung. He required bronchoscopy and therapeutic airway suctioning and all of the respiratory cultures came back negative. This morning, the patient was on a volume cycled assist-control mode of ventilation at the rate of 20, tidal volume 450, FiO2 of 40% and a PEEP of 5. I reviewed the blood gases and I reviewed also the chest x -ray. I noted that the patient was unable to tolerate assist-control mode. Attempts to wean him off the sedation Emily as the patient was becoming restless and a successful the mechanical ventilator. Based on this, I switched this patient to a pressure support mode of ventilation and I was able to completely wean him off sedation. He was wide awake all he was hardly able to wiggle his toes or move his fingers and he was unable to raise his had or arms against gravity. He was having copious amount of rest or secretions and he was requiring frequent suctioning. At a later stage, switch this patient to a pressure control mode of ventilation with a PEEP of 7 and a pressure control of 20 and his FiO2 was At 60%. He remains hemodynamically stable. He is producing adequate amount of urine output. No pressors at this point. No fever. No chills. Chest tubes have been all removed. He is tolerating tube feeds. Atelectatic discussion with the cardiothoracic surgeon and will plan to proceed with a PEG and trach if the patient ultimately failed weaning. 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 On 11/22/2016 the patient remains intubated on a mechanical ventilator. I was able to the sedation completely on the patient. He is awake at this point and he had been awake throughout the night. He is following simple commands. Motor functions are nearly absent. The patient is extremely weak. He can wiggle his toes and occasionally bend his knees. Otherwise he cannot raise his arms and legs against gravity. He has a cough reflex. He can blink his eyes and raises eyebrows. Reflexes are significantly diminished in the upper and lower extremities bilaterally. Is on a pressure control mode of ventilation at the rate of 18, PC 18, PEEP of 7 and FiO2 of 50%. Still having significant respiratory secretions through the orotracheal tube. The chest x-ray from today shows moderate parenchymal opacity within the left lung base and the right lung base. There is some atelectatic changes in the lung bases more so on the left. The patient has also postop changes related to coronary artery bypass surgery. No fever. No chills. Hemodynamically stable. Producing adequate amount of urine output and the patient was diuresis with a combination of albumin and Lasix. He is on tube feeds. On 11/23/2016 the patient remains on a mechanical ventilator. Seems to be much more awake compared to yesterday. Motor functions remain weak over the patient is doing more activity and movement on today's evaluation. We were able to bring the patient is sitting up position for a total of 2 hours today. He tolerated well and following that he had a coughing spells and he had to be placed in bed. He remains in the same vent setting with a pressure control of 18, PEEP of 7, FiO2 of 50% and rate of 18. Chest x-ray shows adequate expansion of the left lung with a few being in good location. Sputum analysis showed Moraxella catarrhalis and the based on that the patient was started on Levaquin. Note that he had also Klebsiella PNEUMONIA IN HIS URINE, AND BOTH OF THESE MICROORGANISMS SHOULD RESPOND TO LEVAQUIN. Meanwhile, the patient is receiving enteral feeding for nutritional support. IV Solu Medrol is been discontinued. We'll doing daily physical therapy and passive range of motion. He remains on IV heparin. He remains on IV insulin for blood sugar control. Morning blood gases showed a pH of 7.51 with a pCO2 of 26 and pO2 of 79. Weaning parameters are still poor as the patient has rapid shallow breathing index around 120 and the patient becomes tachypneic and the LOW tidal volumes. On 11/24/2016 the patient is being seen in follow-up. Earlier this morning the patient was still mechanical ventilator on a pressure control mode. Chest x- ray from earlier this morning showed no significant abnormalities. There was improvement in aeration in lung bases bilaterally especially on the left. NG tube was still in a good location below the diaphragm. Meanwhile affect abdominal film was done this morning and that showed a component of ileus. Note that overnight, the patient's tube feeds were discontinued knowing that he had 2 bouts of emesis. Nevertheless, despite ongoing gastrointestinal abnormalities, the patient is doing very well while being on mechanical ventilator and is awake and alert. We checked his weaning parameters this morning and the numbers looked very well. He was given a pressure support of 5 and PEEP of 5 and a breathing trial for a total of 30 minutes and following that we made a decision to extubate this patient. This was a difficult decision to make knowing that the patient had an underlying abdominal ileus and he is still having significant motor weakness in the upper and lower extremities. Nevertheless, I noted that his motor function is improved his cough improved and he had very decent weaning parameters. I suspected that this will be his last chance of being extubated and if not successful, he will need a PEG and trach with the next 24 hours. Based on this, I extubated this patient. He remains on IV heparin. He remains on IV insulin. He is also on Levaquin. He is afebrile. He is awake and following commands. Motor function is gradually improving. No other new complaints otherwise for now. Noted post extubation, the patient was placed on 5 L of oxygen nasal cannula with saturation of 94-95%He continued to bleed comfortably. He was placed in sitting up position in ICU. 11/25/2016, the patient is being seen in follow-up in the intensive care unit. The patient has been extubated and has been off the mechanical ventilator for the past 24 hours. He is breathing comfortably. No significant rest or distress. NG tube is in place. There is considerable amount of output from the NG tube still in the abdomen is distended although less compared to yesterday. He had colonic ileus and some dilatation of the small bowel. A rectal tube was inserted and abdomen was quite deflated. He is producing some loose liquidy bowel movements yesterday and small amounts. Rectal examination was done and the patient does not have any impacted stool. No abdominal pain. No fever. No chills. He is in sinus rhythm for the time being and stable hemodynamics. Is producing adequate amount of urine output. All of the surgical wound sites are clean and intact. Neurologically is awake. There has been obvious improvement in the motor function and the patient is talking and communicating at this point. He remains on IV heparin. He remains on IV insulin for blood sugar control. White cell count is at 15.1. Hemoglobin is stable at 8.7. On 11/26/2016, the patient is being seen in follow-up. The patient is awake. Following commands and communicating. As mentioned earlier, profoundly weak although that has been steady and slow improvement in his motor function. NG tube in place. Abdomen remains distended. Flexeril of the abdomen shows ileus both large and small bowel. No bowel functional mobility at all over the past 12 hours. The patient is on Reglan. From the pulmonary standpoint, he is calm and comfortable. No labored breathing. Actually taking well on 3 L of oxygen by nasal cannula. The chest exit from today shows stable at ectatic changes small effusion the lung bases bilaterally. NG tube in place. Output is minimal at this point. Abdomen is tender get is soft and nontender. Bowel sounds are very hypoactive. Repeat abdominal films was reviewed and there is concern of ongoing large and small bowel ileus. He is on IV heparin. Remains on IV insulin for blood sugar control. Remains nothing by mouth for the time being. No leukocytosis. Cardiac rhythm is sinus. On 11/27/2016 I'm seeing this patient in follow-up. He is awake. He is communicating. NG tube is in place. Total amount of output from the NG tube is around 250 mL over the past 24 hours. Abdomen remains distended and tympanic and bowel sounds are hypoactive. CAT scan of the abdomen that was done showed a large bowel ileus. The patient is on Reglan. The patient was started on TPN for nutritional support. The CAT scan of the chest also showed some early dehiscence in the lower surgical incision with some surrounding swelling/hematoma. There is small better pleural effusion and atelectasis in the left lung base. No fever. No chills. Still on insulin drip. Still on a heparin drip. Right upper extremity is swollen and Artline catheter needs to be removed. On 11/28/2016, patient was seen on follow-up, continues to be about the same. Continues to have nasogastric tube in place, continues to have hypoactive bowel sounds and what seems to be an ileus. Patient remains on TPN for nutritional support, ultrasound of the right upper extremity showed no evidence of DVT. Chest x-ray showed cardiomegaly and small left pleural effusion. All labs were reviewed, PTT is therapeutic. Hemoglobin is 8.8 today. Basic metabolic profile is relatively normal. Objective - Vital Signs Vital signs: Vital Signs Temp 98.2 F 11/28/16 12:00 Pulse 75 11/28/16 13:00 Resp 15 11/28/16 13:00 BP 109/61 11/28/16 13:00 Pulse Ox 94 L 11/28/16 13:00 Intake & Output 11/27/16 11/28/16 11/28/16 18:59 06:59 18:59 Intake Total 441.780 0378.340 621.823 Output Total 1855 2215 1820 Balance -932.512 -563.660 -1198.177 Weight 98.8 kg 98.6 kg 98.6 kg Intake: IV 566 1078 470 0.9 for pressure bag 36 3 Mvi, Adult No.4 with Vit 330 855 450 K 10 ml Trace (Conc-1Ml/ Dose) 1 ml Sodium Acetate 30 meq Potassium Chloride 20 meq Calcium Gluconate 1,000 mg In Amino Acid 5%-D25w 1,000 ml @ 30 mls/hr IV .Q24H [facility] Rx#:[id number] Potassium Chloride 10 meq 200 220 20 In Water For Injection 1 100ml.bag @ 100 mls/hr IVPB Q1H [facility] Rx#: [id number] Intake, IV Titration 356.488 573.340 151.823 Amount Amino Acid 5%-D25w+Lytes* 75 E* 1,000 ml @ 75 mls/hr IV .BY DURATION [facility] Rx#: [id number] D5-0.45% NaCl with KCl 220 20 40 20Meq/l 1,000 ml @ 20 mls /hr IV .Q24H [facility] Rx#: [id number] Heparin Sodium,Porcine/ 500 D5w Pmx 25,000 unit In Dextrose/Water 1 500ml. bag @ 10 UNITS/KG/HR 19. 98 mls/hr IV .Q24H [facility] Rx #:[id number] Insulin Regular 100 unit 36.488 53.340 36.823 In Sodium Chloride 0.9% 100 ml @ Per Protocol IV .Q0M [facility] Rx#:[id number] Potassium Chloride 10 meq 100 In Water For Injection 1 100ml.bag @ 100 mls/hr IVPB Q1H [facility] Rx#: [id number] Output: Gastric Drainage 250 Urine 1605 2215 1820 Other: Voiding Method Indwelling Catheter Indwelling Catheter # Bowel Movements 1 2 ABP, PAP, CO, CI - Last Documented Arterial Blood Pressure 172/58 Pulmonary Artery Pressure 46/23 Cardiac Output 6.8 Cardiac Index 3.3 - Exam Head exam was generally normal. There was no scleral icterus or corneal arcus. Mucous membranes were moist.Neck was supple and without jugular venous distension, thyromegaly, or carotid bruits. Carotids were easily palpable bilaterally. There was no adenopathy. The patient has an NG tube in place and the patient has no stridor. He has some degree of crowding of the posterior oropharynx. Mucosal membranes are dry. Lung sounds are diminished in lung bases bilaterally otherwise clear. Heart sounds are regular, positive S1-S2, no cervical murmurs appreciated and sternum stable clean and intact. Abdomen is distended. This positive tympany. Bowel sounds are hypoactive. There is no direct tenderness. No rebound tensile guarding.Examination of the extremities revealed swelling in the right upper extremity compared to the left. There is trace edema lower extremities bilaterally.. There was no cyanosis, clubbing or edema. Neurologically, the patient is awake and alert. He is, indicating. No focal neurological deficit. Motor function is weak although improved compared to yesterday. The patient is able to raise his arms and legs against gravity. There is no focal neurological deficit at this point. He has a decent cough. He is also communicating and verbal. - Labs CBC & Chem 7: 11/28/16 04:45 11/28/16 04:45 Labs: Abnormal Lab Results - Last 24 Hours (Table) 11/27/16 11/27/16 11/27/16 Range/Units 16:48 18:10 18:59 RBC (4.30-5.90) m/uL Hgb (13.0-17.5) gm/dL Hct (39.0-53.0) % APTT (22.0-30.0) sec Glucose (74-99) mg/dL POC Glucose (mg/dL) 170 H 116 H 158 H (75-99) mg/dL Calcium (8.4-10.2) mg/dL 11/27/16 11/27/16 11/27/16 Range/Units 20:10 21:31 23:07 RBC (4.30-5.90) m/uL Hgb (13.0-17.5) gm/dL Hct (39.0-53.0) % APTT (22.0-30.0) sec Glucose (74-99) mg/dL POC Glucose (mg/dL) 147 H 143 H 152 H (75-99) mg/dL Calcium (8.4-10.2) mg/dL 11/28/16 11/28/16 11/28/16 Range/Units 00:10 01:17 02:59 RBC (4.30-5.90) m/uL Hgb (13.0-17.5) gm/dL Hct (39.0-53.0) % APTT (22.0-30.0) sec Glucose (74-99) mg/dL POC Glucose (mg/dL) 138 H 139 H 146 H (75-99) mg/dL Calcium (8.4-10.2) mg/dL 11/28/16 11/28/16 11/28/16 Range/Units 04:44 04:45 04:45 RBC 2.70 L (4.30-5.90) m/uL Hgb 8.8 L (13.0-17.5) gm/dL Hct 26.0 L (39.0-53.0) % APTT (22.0-30.0) sec Glucose 129 H (74-99) mg/dL POC Glucose (mg/dL) 128 H (75-99) mg/dL Calcium 8.2 L (8.4-10.2) mg/dL 11/28/16 11/28/16 11/28/16 Range/Units 04:45 06:23 08:05 RBC (4.30-5.90) m/uL Hgb (13.0-17.5) gm/dL Hct (39.0-53.0) % APTT 46.3 H (22.0-30.0) sec Glucose (74-99) mg/dL POC Glucose (mg/dL) 160 H 182 H (75-99) mg/dL Calcium (8.4-10.2) mg/dL 11/28/16 11/28/16 11/28/16 Range/Units 10:34 12:19 12:35 RBC (4.30-5.90) m/uL Hgb (13.0-17.5) gm/dL Hct (39.0-53.0) % APTT 55.9 H (22.0-30.0) sec Glucose (74-99) mg/dL POC Glucose (mg/dL) 180 H 133 H (75-99) mg/dL Calcium (8.4-10.2) mg/dL 11/28/16 Range/Units 14:04 RBC (4.30-5.90) m/uL Hgb (13.0-17.5) gm/dL Hct (39.0-53.0) % APTT (22.0-30.0) sec Glucose (74-99) mg/dL POC Glucose (mg/dL) 139 H (75-99) mg/dL Calcium (8.4-10.2) mg/dL Assessment and Plan Plan: 1 Coronary artery disease status post cardiac bypass surgery and the patient is postop day # 18 2 prolonged postoperative ventilator-dependent history failure, multifactorial. Patient has extubated. Nevertheless, the active ongoing problems for now is his neuromuscular weakness and ongoing ileus. Patient has a combination of large bowel ileus as evident on the flat film the abdomen. NG tube still in place. 3 recurrent mucous plugs with excessive respiratory secretions requiring bronchoscopy and a peak airway suctioning and a bronchoscopy cultures came back negative for any microbial growth. The most recent sputum analysis showing Moraxella catarrhalis and the patient is currently on Levaquin. Chest x-ray from today is showing atelectatic changes in lung bases bilaterally. Nevertheless the patient is oxygenating well and there is no respiratory distress at this point. 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 Despite this, the patient is having a nontoxic abdomen. No abdominal tenderness. No leukocytosis. No fever. No acidosis. NG tube is in place and the patient is still nothing by mouth. 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 Doubt infection Recommendation: Continue present supportive care measures, advanced TPN, continue incentive spirometry, continue nasogastric tube on suction, aggressive physical therapy, keep patient in the ICU, not quite ready for any discharge planning at this point. Prognosis remains guarded. And the patient remains relatively critically ill. Time with Patient: Less than 30
[2016-11-28 15:56] LABS: Glucose,Whole Blood 156 mg/dL (75-99)
--- NOTE | 2016-11-28 17:06 | P.PN ---
Progress Note - Text Patient is evaluated at bedside. Denies chills, nausea, vomiting, or abdominal pain. Patient denies flatus. Patient had 2 bowel movements today. On exam, vital signs stable, abdomen soft, nontender, hyperactive bowel sounds, distended. No peritoneal signs. Impression: Improving colonic ileus. Plan: Continue nasogastric tube. Keep patient nothing by mouth. Continue TPN. Continue Reglan. Increase activity. No surgical intervention at this time. The above impression and plan have been discussed and directed by Dr. Rosas. Vernell CRAFT acting as scribe for Dr. Rosas.
[2016-11-28] MEDS: LEVOFLOXACIN 750MG-D5W PMX 750 MG in DEXTROSE/WATER 1 150ML.BAG IVPB SCH (17:09)
[2016-11-28] MEDS: FAT EMULSION 20% 250 ML in EMPTY BAG 1 BAG IV SCH (17:09)
[2016-11-28] MEDS: D5-0.45% NACL WITH KCL 20MEQ/L 1,000 ML IV SCH (17:09)
[2016-11-28 18:02] LABS: Glucose,Whole Blood 176 mg/dL (75-99)
[2016-11-28 20:16] LABS: Glucose,Whole Blood 149 mg/dL (75-99)
[2016-11-28 22:11] LABS: Glucose,Whole Blood 167 mg/dL (75-99)
[2016-11-28] MEDS: SENNOSIDES-DOCUSATE SODIUM 1 EACH TAB PO SCH (22:32)
[2016-11-29] MEDS: METOCLOPRAMIDE 5 MG/ML 2 ML VIAL IVP SCH ×5 (01:11→23:15)
[2016-11-29 01:16] LABS: Glucose,Whole Blood 158 mg/dL (75-99)
[2016-11-29 03:13] LABS: Glucose,Whole Blood 169 mg/dL (75-99)
[2016-11-29 05:02] LABS: Glucose,Whole Blood 166 mg/dL (75-99)
[2016-11-29 05:23] LABS: Basophils # (A) 0.1 k/uL (0-0.2); Basophils % (A) 1 %; CH 32.2; CHCM 33.1; Eosinophils # (A) 0.5 k/uL (0-0.7); Eosinophils % (A) 5 %; HCT 26.2 % (39.0-53.0); HDW 2.95; HGB 8.6 gm/dL (13.0-17.5); Luc # (Auto) 0.34; Luc % (Auto) 3; Lymphocytes % (A) 19 %; MCH 32.1 pg (25.0-35.0); MCHC 32.9 g/dL (31.0-37.0); MCV 97.7 fL (80.0-100.0); Mean Platelet Volume 7.6; Monocytes # (A) 0.6 k/uL (0-1.0); Monocytes % (A) 6 %; Neutrophils % (A) 67 %; RBC 2.68 m/uL (4.30-5.90); RDW 14.9 % (11.5-15.5); WBC 10.5 k/uL (3.8-10.6); WBC (Perox) 10.21
[2016-11-29 05:29] LABS: Ionized Calcium 4.8 mg/dL (4.5-5.3)
[2016-11-29 05:32] LABS: Anion Gap 6 mmol/L; Blood Urea Nitrogen 13 mg/dL (9-20); Calcium 8.2 mg/dL (8.4-10.2); Carbon Dioxide 27 mmol/L (22-30); Chloride 101 mmol/L (98-107); Glucose 161 mg/dL (74-99); Magnesium 1.6 mg/dL (1.6-2.3); Non-African American GFR(MDRD) >60 (>60 ml/min/1.73 sqM); Phosphorous 3.7 mg/dL (2.5-4.5); Potassium 3.6 mmol/L (3.5-5.1); Sodium 134 mmol/L (137-145)
[2016-11-29] MEDS: INSULIN REGULAR 100 UNIT in SODIUM CHLORIDE 0.9% 100 ML IV SCH ×2 (06:20→22:08)
[2016-11-29 06:21] LABS: Glucose,Whole Blood 180 mg/dL (75-99)
[2016-11-29] MEDS ORDERED: Potassium Replacement Protocol 1 EACH MISC MISCELLANE PRN (06:23)
[2016-11-29] MEDS ORDERED: POTASSIUM CHLORIDE ORAL LIQUID 40 MEQ/30 ML CUP NG-TUBE SCH (07:30)
--- NOTE | 2016-11-29 07:43 | XR ---
EXAMINATION TYPE: XR chest 1V portable DATE OF EXAM: 11/29/2016 6:31 AM CLINICAL HISTORY: Difficulty breathing progress study. Post open cardiac surgery. TECHNIQUE: Single AP portable upright view of the chest is obtained. COMPARISON: Chest x-ray from one day earlier FINDINGS: A left-sided PICC line and orogastric tube are stable in appearance. Sternal wires and med iastinal clips from CABG procedure are redemonstrated. There is persistent cardiomegaly with small to moderate-sized left pleural effusion and associated le ft basilar atelectasis and/or infiltrate. Small right pleural effusion is suspected. Mild central vas cular congestion is seen. No sizable pneumothorax is evident bilaterally. Osseous structures are inta ct. IMPRESSION: Overall stable findings, cardiomegaly with mild central vascular congestion, small to m oderate-sized left greater than right pleural effusions and associated left basilar atelectasis and/o r infiltrate all redemonstrated without significant interval change.
[2016-11-29 08:02] LABS: Glucose,Whole Blood 177 mg/dL (75-99)
[2016-11-29] MEDS: FUROSEMIDE 10 MG/ML 2 ML VIAL IV SCH ×2 (08:28→20:03)
[2016-11-29] MEDS: AMIODARONE 200 MG TAB PO SCH ×2 (08:28→20:03)
[2016-11-29] MEDS: DIGOXIN 250 MCG TAB OG-TUBE SCH (08:28)
[2016-11-29] MEDS: ATORVASTATIN 40 MG TAB PO SCH (08:28)
[2016-11-29] MEDS: LISINOPRIL 10 MG TAB PO SCH ×2 (08:28→20:03)
[2016-11-29] MEDS: ASPIRIN 325 MG TAB PO SCH (08:28)
[2016-11-29] MEDS: THIAMINE 100 MG TAB PO SCH ×2 (08:29→20:04)
[2016-11-29] MEDS: PANTOPRAZOLE 40 MG/10 ML VIAL IVP SCH (08:29)
[2016-11-29] MEDS: METOPROLOL TARTRATE 50 MG TAB PO SCH ×2 (08:29→20:04)
--- NOTE | 2016-11-29 09:01 | P.PN ---
Subjective This is a 61-year-old gentleman who is status post prior to coronary bypass surgery. Patient had a prolonged stay in ICU on mechanical ventilator support. He is also had some neuromuscular weakness. The patient was in and out atrial fibrillation with RVR. But he was converted to normal sinus mechanism 2 days ago. He is on metoprolol, amiodarone, and digoxin. The blood pressure has been stable. He continues to be on Coumadin for anticoagulation. From the cardiovascular standpoint overview, we'll continue the current medical treatment. The patient is feeling at her slowly. Objective - Vital Signs Vital signs: Vital Signs Temp 99.1 F 11/29/16 08:00 Pulse 73 11/29/16 08:00 Resp 36 H 11/29/16 08:00 BP 146/64 11/29/16 08:00 Pulse Ox 96 11/29/16 08:00 Intake & Output 11/28/16 11/29/16 11/29/16 18:59 06:59 18:59 Intake Total 2241.999 249.747 131.968 Output Total 2740 2505 125 Balance -498.001 -2255.253 6.968 Weight 98.6 kg 99.4 kg Intake: IV 470 220 40 .9 NaCL 220 40 Mvi, Adult No.4 with Vit 450 K 10 ml Trace (Conc-1Ml/ Dose) 1 ml Sodium Acetate 30 meq Potassium Chloride 20 meq Calcium Gluconate 1,000 mg In Amino Acid 5%-D25w 1,000 ml @ 30 mls/hr IV .Q24H [facility] Rx#:[id number] Potassium Chloride 10 meq 20 In Water For Injection 1 100ml.bag @ 100 mls/hr IVPB Q1H [facility] Rx#: [id number] Intake, IV Titration 1771.999 29.747 91.968 Amount Amino Acid 5%-D25w+Lytes* 525 E* 1,000 ml @ 75 mls/hr IV .BY DURATION [facility] Rx#: [id number] D5-0.45% NaCl with KCl 40 20Meq/l 1,000 ml @ 20 mls /hr IV .Q24H [facility] Rx#: [id number] Fat Emulsion 20% 250 ml 42 In Empty Bag 1 bag @ 21 mls/hr IV MoWeFr [facility] Rx#: [id number] Insulin Regular 100 unit 53.999 29.747 16.968 In Sodium Chloride 0.9% 100 ml @ Per Protocol IV .Q0M [facility] Rx#:[id number] Levofloxacin 750Mg-D5w 100 Pmx 750 mg In Dextrose/ Water 1 150ml.bag @ 100 mls/hr IVPB Q24H [facility] Rx#: [id number] Mvi, Adult No.4 with Vit 1011 K 10 ml Trace (Conc-1Ml/ Dose) 1 ml In Amino Acid 5%-D25w+Lytes*E* 1,000 ml @ 75 mls/hr IV .BY DURATION [facility] Rx#: [id number] Mvi, Adult No.4 with Vit 75 K 10 ml Trace (Conc-1Ml/ Dose) 1 ml Sodium Acetate 30 meq Potassium Chloride 20 meq Calcium Gluconate 1,000 mg In Amino Acid 5%-D25w 1,000 ml @ 75 mls/hr IV . [id number] [facility] Rx#:[id number] Output: Urine 2740 2505 125 Other: Voiding Method Indwelling Catheter Indwelling Catheter # Bowel Movements 2 ABP, PAP, CO, CI - Last Documented Arterial Blood Pressure 172/58 Pulmonary Artery Pressure 46/23 Cardiac Output 6.8 Cardiac Index 3.3 - Constitutional General appearance: Present: no acute distress - Respiratory Respiratory: bilateral: diminished - Cardiovascular Rhythm: regular Heart sounds: normal: S1, S2 - Labs CBC & Chem 7: 11/29/16 04:50 11/29/16 04:50 Labs: Abnormal Lab Results - Last 24 Hours (Table) 11/28/16 11/28/16 11/28/16 Range/Units 10:34 12:19 12:35 RBC (4.30-5.90) m/uL Hgb (13.0-17.5) gm/dL Hct (39.0-53.0) % APTT 55.9 H (22.0-30.0) sec Sodium (137-145) mmol/L Glucose (74-99) mg/dL POC Glucose (mg/dL) 180 H 133 H (75-99) mg/dL Calcium (8.4-10.2) mg/dL 11/28/16 11/28/16 11/28/16 Range/Units 14:04 15:54 18:00 RBC (4.30-5.90) m/uL Hgb (13.0-17.5) gm/dL Hct (39.0-53.0) % APTT (22.0-30.0) sec Sodium (137-145) mmol/L Glucose (74-99) mg/dL POC Glucose (mg/dL) 139 H 156 H 176 H (75-99) mg/dL Calcium (8.4-10.2) mg/dL 11/28/16 11/28/16 11/29/16 Range/Units 20:13 22:08 01:15 RBC (4.30-5.90) m/uL Hgb (13.0-17.5) gm/dL Hct (39.0-53.0) % APTT (22.0-30.0) sec Sodium (137-145) mmol/L Glucose (74-99) mg/dL POC Glucose (mg/dL) 149 H 167 H 158 H (75-99) mg/dL Calcium (8.4-10.2) mg/dL 11/29/16 11/29/16 11/29/16 Range/Units 03:10 04:49 04:50 RBC (4.30-5.90) m/uL Hgb (13.0-17.5) gm/dL Hct (39.0-53.0) % APTT (22.0-30.0) sec Sodium 134 L (137-145) mmol/L Glucose 161 H (74-99) mg/dL POC Glucose (mg/dL) 169 H 166 H (75-99) mg/dL Calcium 8.2 L (8.4-10.2) mg/dL 11/29/16 11/29/16 11/29/16 Range/Units 04:50 04:50 06:20 RBC 2.68 L (4.30-5.90) m/uL Hgb 8.6 L (13.0-17.5) gm/dL Hct 26.2 L (39.0-53.0) % APTT 65.6 H (22.0-30.0) sec Sodium (137-145) mmol/L Glucose (74-99) mg/dL POC Glucose (mg/dL) 180 H (75-99) mg/dL Calcium (8.4-10.2) mg/dL 05/02/17 Range/Units 08:00 RBC (4.30-5.90) m/uL Hgb (13.0-17.5) gm/dL Hct (39.0-53.0) % APTT (22.0-30.0) sec Sodium (137-145) mmol/L Glucose (74-99) mg/dL POC Glucose (mg/dL) 177 H (75-99) mg/dL Calcium (8.4-10.2) mg/dL Assessment and Plan Plan: Assessment #1 status post CABG #2 acute respiratory failure which has resolved #3 paroxysmal atrial fibrillation #4 multiple comorbid conditions Plan #1 continue the current medical treatment #2 there is no reason for any further cardiac workup #3 we'll continue following up with the patient
[2016-11-29] MEDS: BUDESONIDE 1 MG/2 ML NEBU INHALATION SCH ×2 (09:08→20:12)
[2016-11-29] MEDS: IPRATROPIUM-ALBUTEROL 3 ML NEB INHALATION SCH ×4 (09:08→20:13)
[2016-11-29 10:05] LABS: Glucose,Whole Blood 176 mg/dL (75-99)
[2016-11-29] MEDS: HEPARIN SODIUM,PORCINE/D5W PMX 25,000 UNIT in DEXTROSE/WATER 1 500ML.BAG IV SCH (11:46)
--- NOTE | 2016-11-29 11:56 | CDI ---
In responding to this query, please exercise your independent professional judgment. The [facility] Coding Staff and Clinical Documentation Specialists appreciate your assistance in clarifying documentation, maintaining compliance with coding guidelines, accurately documenting patients condition and capturing severity of illness. The fact that a question is asked does not imply that any particular answer is desired or expected. Communication forms are a method of clarifying documentation and are not made part of the Legal Health Record. Thank you in advance for your clarification. Last Revision, May 2015 Harris Clemens [address] [place] [address] Documentation Clarification Form Date: 11/29/2016 11:31:00 AM From: Pau Hubbard RN, CCDS Admit Date: 11/10/2016 5:40:00 AM Patient Name: Emmanuel Gonzalez Visit Number: [id number] Dr. Ollie Ortega/Nasra Whaley CNP History/Risk Factors: CAD, HTN, PA, SOB, ETOH with delirium tremens this admission, prolonged post- operative mechanical ventilation this admission Clinical Indicators: 11/23 Pulmonary Progress Note: "Sputum analysis showed Moraxella catarrhalis and the based on that the patient was started on Levaquin. Note that he had also Klebsiella PNEUMONIA IN HIS URINE, AND BOTH OF THESE MICROORGANISMS SHOULD RESPOND TO LEVAQUIN." 11/27 Pulmonary Progress Note: "Immediately postop the patient had pulmonary complications including mucous plugs and atelectasis of the left lung." WBC: 11/20-15.5, 11/21- 16.5, 11/22-16, 11/23-12.6 Left shift: 13.1/14.4/11.8/10.8 11/21 CXR: Cardiomegaly with small bilateral pleural effusions redemonstrated, worsening diffuse left lung edema and/or infiltrates is noted. 11/21 Pulmonary Lung/Breathing assessment: "Lung sounds are diminished in lung bases especially in the left lung base." 11/21 Sputum CX: + Moraxella catarra 11/10 Fungal Cx: R lung + Rhiannon tropicalis 11/20 Urine Cx: + Klebsiella Pneumonia Treatment: Antibiotics: Levaquin 750 mg IVPB Q 24 hrs O2: mechanical vent IV Steroids: Solumedrol 40mg IVP Q 12 hrs Breathing TX: Pulmicort 1mg INH BID, Duoneb QID and Q 2 hrs PRN SOB In order to capture the severity of condition, please clarify if the condition signifies and you are treating for: Ventilator Associated Pneumonia (please identify causative organism if known) Aspiration Pneumonia, identify if: Due to solids or liquids Bacterial Pneumonia, specify causal organism (if known) Gram Negative Pneumonia Due to Strep Due to Staph Due to E. coli Other bacteria (specify) Viral Pneumonia, specify casual organism (if known) Unable to determine In order to accurately reflect this patients severity of illness, please clarify if the post-operative diagnosis is: An expected post-procedural or post-surgical condition Integral to the procedure Inherent to the procedure An unexpected post-procedural or post-surgical condition, related to the patients underlying medical comorbidities Other, please specify Unable to determine Link any associated conditions to the pneumonia: Influenza with secondary gram negative pneumonia Sepsis due to pneumonia Acute respiratory failure due to pneumonia Other, please specify Please document in your progress notes and discharge summary in order to capture severity of illness and risk of mortality. Include clinical findings that support your diagnosis. FYI: Press F11 to launch patient chart. Place X here if this finding has no clinical significance, is not applicable or if you are not able to provide any additional documentation. INDERD
[2016-11-29 11:57] LABS: Glucose,Whole Blood 141 mg/dL (75-99)
--- NOTE | 2016-11-29 12:00 | CDI ---
In responding to this query, please exercise your independent professional judgment. The [facility] Coding Staff and Clinical Documentation Specialists appreciate your assistance in clarifying documentation, maintaining compliance with coding guidelines, accurately documenting patients condition and capturing severity of illness. The fact that a question is asked does not imply that any particular answer is desired or expected. Communication forms are a method of clarifying documentation and are not made part of the Legal Health Record. Thank you in advance for your clarification. Last Revision, September 2015 Harris Clemens [address] [place] [address] Documentation Clarification Form 2nd Request Date: 11/18/2016 9:36:00 AM From: Pau Hubbard RN, CCDS Admit Date: 11/10/2016 5:40:00 AM Patient Name: Emmanuel Gonzalez Visit Number: [id number] Dr. Ollie Ortega/Nasra Whaley CNP Postoperative Respiratory failure is documented in the Pulmonary and Medical Progress Notes . Patients Admitting Diagnosis: CAD in for Elective CABG Post-Operative Diagnosis: 1. Coronary artery disease, status post prior stenting to his right coronary artery. 2. Preserved Left ventricular function. 3. Hyperlipidemia. 4. Hypertension. 5. ETOH abuse. Procedure performed: Total arterial non- aortic touch off-pump double coronary artery bypass grafting using in situ skeletonized right internal mammary artery to the left anterior descending artery across the anterior midline, in situ totally skeletonized left internal mammary artery to the first obtuse marginal artery. 2. Transesophageal echocardiogram and epiaortic scanning. 3. Intraoperative graft flow measurements using the medistim system. History/Risk Factors: ETOH, current smoker, possible COPD Clinical Indicators: 11/18 Pulmonary Progress Note: "Patient is at current P-op Day #8. Still requiring high concentrations of oxygen and high PEEP levels. Likely has developed acute lung injury/ARDS. The patient's vent settings with the assist control mode rate of 20 tidal volume 450 FiO2 80% PEEP of 13. Blood gases show a PaO2 of 92 a pCO2 of 38 patient some 0.46. In my opinion, all that's patient starts to show some significant improvement and, he likely end up with a tracheostomy and a feeding tube. His overall prognosis remains very poor as he is not really making much progress. Yesterday we did him down to 60% and 13 a PEEP and I thought that point I had broken shot and improved his respiratory status but today I see is back up to 80%. Again I think if he doesn't show much improvement over the weekend, I next week he'll be a candidate for tracheostomy and PEG tube placement. Postoperative respiratory failure." Treatment: (see above Pulmonary Progress note) Consults: Pulmonary, Cardiology Ventilation is maintained beyond 48hrs after surgery In order to accurately reflect this patients severity of illness, please clarify if the post-operative diagnosis is: An expected post-procedural or post-surgical condition Integral to the procedure Inherent to the procedure An unexpected post-procedural or post-surgical condition, related to the patients underlying medical comorbidities Other, please specify Unable to determine Please document in your progress notes and discharge summary in order to capture severity of illness and risk of mortality. Include clinical findings that support your diagnosis. FYI: Press F11 to launch patient chart Place X here if this finding has no clinical significance, is not applicable or if you are not able to provide any additional documentation. TAISHA
--- NOTE | 2016-11-29 12:13 | CDI ---
In responding to this query, please exercise your independent professional judgment. The [facility] Coding Staff and Clinical Documentation Specialists appreciate your assistance in clarifying documentation, maintaining compliance with coding guidelines, accurately documenting patients condition and capturing severity of illness. The fact that a question is asked does not imply that any particular answer is desired or expected. Communication forms are a method of clarifying documentation and are not made part of the Legal Health Record. Thank you in advance for your clarification. Last Revision, May 2015 Harris Clemens [address] [facility] [place] [address] Documentation Clarification Form Date: 11/29/2016 12:01:00 PM From: Pau Hubbard RN, CCDS Admit Date: 11/10/2016 5:40:00 AM Patient Name: Emmanuel Gonzalez Visit Number: [id number] Dr. Dewayne Bird History/Risk factors: The patient was admitted for elective CABG, Catheter inserted in OR. Clinical Indicators: 11/20 Escobar Cx ordered by Medical 11/23 Pulmonary Progress Note: "Sputum analysis showed Moraxella catarrhalis and the based on that the patient was started on Levaquin. Note that he had also Klebsiella PNEUMONIA IN HIS URINE, AND BOTH OF THESE MICROORGANISMS SHOULD RESPOND TO LEVAQUIN." 11/03 Urinalysis: clean, there is no repeat U/A on this admission 11/20 Urine culture: + Kleb. Pneumoniae Lab results: elevated WBC elevated Neutrophils Treatment: Levaquin 750mg IVPB Q 24 hrs IVF In your professional opinion, can you please clarify the etiology of the UTI, if known? UTI r/t Tay catheter UTI not related to catheter Other condition, please specify Unable to determine If an infective organism is present, please specify cause and effect relationship if applicable. Please document in your progress notes and discharge summary in order to capture severity of illness and risk of mortality. Include clinical findings that support your diagnosis. FYI: Press F11 to launch patient chart Place X here if this finding has no clinical significance, is not applicable or if you are not able to provide any additional documentation. TAISHA
[2016-11-29 12:14] LABS: Glucose,Whole Blood 143 mg/dL (75-99)
--- NOTE | 2016-11-29 12:26 | CDI ---
In responding to this query, please exercise your independent professional judgment. The [facility] Coding Staff and Clinical Documentation Specialists appreciate your assistance in clarifying documentation, maintaining compliance with coding guidelines, accurately documenting patients condition and capturing severity of illness. The fact that a question is asked does not imply that any particular answer is desired or expected. Communication forms are a method of clarifying documentation and are not made part of the Legal Health Record. Thank you in advance for your clarification. Last Revision, September 2015 Harris Clemens [address] [place] [address] Documentation Clarification Form Date: 11/29/2016 12:13:00 PM From: Pau Hubbard RN, CCDS Admit Date: 11/10/2016 5:40:00 AM Patient Name: Emmanuel Gonzalez Visit Number: [id number] Dr. Av Caruso/ Solange Beckman DNP CHF is documented as the reason for Picc Line insertion- "Needs long-term intravenous access for therapy, intubated, congestive heart failure." History/Risk Factors: ETOH, CAD, HTN, hyperlidemia, nicotine dependence Clinical Indicators: 11/03/16 BNP: 784 Echocardiogram Results: not done-11/03 Left ventriculogram- mild anteroapical hypokinesis with EF 45-50% 11/29 Chest X Ray: "Overall stable findings, cardiomegaly with mild central vascular congestion, small to moderate-sized left greater than right pleural effusions and associated left basilar atelectasis and/or infiltrate all redemonstrated without significant interval change." Treatment: Lasix 20mg IVP Q 12 hrs Consults: Cardiology, Pulmonology In your professional opinion, can you please clarify the acuity and type of CHF if known? Acute Chronic Acute on Chronic AND Systolic Diastolic Systolic and Diastolic Cor Pulmonale (Right Sided HF w/ Pulmonary HTN) Unable to determine Other, please specify If known, please specify if Heart Failure is due to: Hypertension Rheumatic Fever Please document in your progress notes and discharge summary in order to capture severity of illness and risk of mortality. Include clinical findings that support your diagnosis. FYI: Press F11 to launch patient chart. Place X here if this finding has no clinical significance, is not applicable or if you are not able to provide any additional documentation. MTDD
[2016-11-29] MEDS: 1: MVI, ADULT NO.4 WITH VIT K 10 ML, TRACE (CONC-1ML/DOSE) 1 ML in AMINO ACID 5%-D25W+LY IV SCH ×3 (13:42)
[2016-11-29] MEDS: MAGNESIUM SULFATE-D5W PMX 1 GM in DEXTROSE/WATER 1 100ML.BAG IVPB SCH ×2 (13:42→16:30)
--- NOTE | 2016-11-29 14:35 | P.PN ---
Progress Note - Text Patient is evaluated at bedside. Denies chills, nausea, vomiting, or abdominal pain. Patient had 2 bowel movements yesterday. Nasogastric output 250 mL the last 24 hours. On exam, vital signs stable, abdomen soft, nontender, active bowel sounds, distended. No peritoneal signs. Impression: Improving colonic ileus. Plan: Discontinue nasogastric tube. Start patient on a full liquid diet. Continue TPN. Continue Reglan. Increase activity. No surgical intervention at this time. The above impression and plan have been discussed and directed by Dr. Rosas. Vernell CRAFT acting as scribe for Dr. Rosas.
--- NOTE | 2016-11-29 16:13 | P.PN ---
Subjective Principal diagnosis: Coronary artery disease, status post prior stenting to his right coronary artery. Preserved left ventricular function. Hyperlipidemia. Hypertension. ETOH abuse. POD #19 total arterial non-aortic patch off-pump double coronary artery bypass grafting using in situ skeletonized right internal mammary artery to the left anterior descending artery across the anterior midline in situ totally skeletonized left internal mammary artery to the first obtuse marginal artery. Intraoperative transesophageal echocardiogram and epi-aortic scanning. Intraoperative graft flow measurements using the Medistim system POD #19 flexible bronchoscopy with bronchial washings secondary to postoperative mucous plugging with increasing oxygen demand the night of surgery. Pt had acute hypoxic post operative respiratory failure as an unexpected post-surgical condition, related to the patient's underlying medical comorbidities. Sputum culture grew out Moraxella, blood cultures are negative to date, urine culture grew Klebsiella. Patient placed on Levaquin per pulmonology. Pt developed postoperative alcohol withdrawal requiring increased sedation and prolonged mechanical ventilation. Patient developed postoperative ileus, an unexpected post-surgical condition, currently resolving. Currently receiving TPN for nutrition. General surgery and consult, no intervention at this time. Patient currently sitting up in bed in no apparent distress. Denies any new questions or concerns. States he is feeling better every day. Objective - Vital Signs Vital signs: Vital Signs Temp 98.8 F 05/ 12:00 Pulse 80 11/29/16 15:00 Resp 23 11/29/16 15:00 BP 113/61 11/29/16 15:00 Pulse Ox 93 L 11/29/16 15:00 Intake & Output 0511/29/16 11/29/16 18:59 06:59 18:59 Intake Total 2241.999 1749.747 524.945 Output Total 2740 2505 1575 Balance -498.001 -755.253 -1050.055 Weight 98.6 kg 99.4 kg 99.4 kg Intake: IV 470 220 180 .9 NaCL 220 180 Mvi, Adult No.4 with Vit 450 K 10 ml Trace (Conc-1Ml/ Dose) 1 ml Sodium Acetate 30 meq Potassium Chloride 20 meq Calcium Gluconate 1,000 mg In Amino Acid 5%-D25w 1,000 ml @ 30 mls/hr IV .Q24H [facility] Rx#:[id number] Potassium Chloride 10 meq 20 In Water For Injection 1 100ml.bag @ 100 mls/hr IVPB Q1H [facility] Rx#: [id number] Intake, IV Titration 7119.518 5510.747 344.945 Amount Amino Acid 5%-D25w+Lytes* 525 1000 E* 1,000 ml @ 75 mls/hr IV .BY DURATION [facility] Rx#: [id number] D5-0.45% NaCl with KCl 40 20Meq/l 1,000 ml @ 20 mls /hr IV .Q24H [facility] Rx#: [id number] Fat Emulsion 20% 250 ml 42 In Empty Bag 1 bag @ 21 mls/hr IV MoWeFr [facility] Rx#: [id number] Heparin Sodium,Porcine/ 500 D5w Pmx 25,000 unit In Dextrose/Water 1 500ml. bag @ 10 UNITS/KG/HR 19. 98 mls/hr IV .Q24H [facility] Rx #:[id number] Insulin Regular 100 unit 53.999 29.747 44.945 In Sodium Chloride 0.9% 100 ml @ Per Protocol IV .Q0M [facility] Rx#:[id number] Levofloxacin 750Mg-D5w 100 Pmx 750 mg In Dextrose/ Water 1 150ml.bag @ 100 mls/hr IVPB Q24H [facility] Rx#: [id number] Mvi, Adult No.4 with Vit 1011 K 10 ml Trace (Conc-1Ml/ Dose) 1 ml In Amino Acid 5%-D25w+Lytes*E* 1,000 ml @ 75 mls/hr IV .BY DURATION [facility] Rx#: [id number] Mvi, Adult No.4 with Vit 300 K 10 ml Trace (Conc-1Ml/ Dose) 1 ml Sodium Acetate 30 meq Potassium Chloride 20 meq Calcium Gluconate 1,000 mg In Amino Acid 5%-D25w 1,000 ml @ 75 mls/hr IV . [id number] [facility] Rx#:[id number] Output: Urine 2740 2505 1575 Other: Voiding Method Indwelling Catheter Indwelling Catheter Indwelling Catheter # Bowel Movements 2 ABP, PAP, CO, CI - Last Documented Arterial Blood Pressure 172/58 Pulmonary Artery Pressure 46/23 Cardiac Output 6.8 Cardiac Index 3.3 - Constitutional General appearance: Present: cooperative, no acute distress - Respiratory Details: Lungs sounds diminished bilaterally with expiratory wheezes present. Respirations even, nonlabored. Currently on 2 L nasal cannula. Able to achieve 500 mL on his incentive spirometry. - Cardiovascular Details: S1, S2 present. Regular rate and rhythm, normal sinus rhythm on telemetry. Sternum stable. Heart hugger in place with patient unable to use appropriately. Trace bilateral lower extremity edema present. - Gastrointestinal Gastrointestinal Comment(s): Abdomen soft, nontender, nondistended. Active bowel sounds 4 quadrants. Bowel movement 2 yesterday. - Genitourinary Genitourinary Comment(s): Tay present draining clear, yellow urine. Output 75-120 mL/h. - Integumentary Integumentary Comment(s): Anterior chest incision covered with dry intact dressing. - Musculoskeletal Musculoskeletal: Present: generalized weakness - Psychiatric Psychiatric: Present: A&O x's 3, appropriate affect, intact judgment & insight - Allied health notes Allied health notes reviewed: nursing - Labs CBC & Chem 7: 11/29/16 04:50 11/29/16 04:50 Labs: Abnormal Lab Results - Last 24 Hours (Table) 11/28/16 11/28/16 11/28/16 Range/Units 18:00 20:13 22:08 RBC (4.30-5.90) m/uL Hgb (13.0-17.5) gm/dL Hct (39.0-53.0) % APTT (22.0-30.0) sec Sodium (137-145) mmol/L Glucose (74-99) mg/dL POC Glucose (mg/dL) 176 H 149 H 167 H (75-99) mg/dL Calcium (8.4-10.2) mg/dL 11/29/16 11/29/16 11/29/16 Range/Units 01:15 03:10 04:49 RBC (4.30-5.90) m/uL Hgb (13.0-17.5) gm/dL Hct (39.0-53.0) % APTT (22.0-30.0) sec Sodium (137-145) mmol/L Glucose (74-99) mg/dL POC Glucose (mg/dL) 158 H 169 H 166 H (75-99) mg/dL Calcium (8.4-10.2) mg/dL 11/29/16 11/29/16 11/29/16 Range/Units 04:50 04:50 04:50 RBC 2.68 L (4.30-5.90) m/uL Hgb 8.6 L (13.0-17.5) gm/dL Hct 26.2 L (39.0-53.0) % APTT 65.6 H (22.0-30.0) sec Sodium 134 L (137-145) mmol/L Glucose 161 H (74-99) mg/dL POC Glucose (mg/dL) (75-99) mg/dL Calcium 8.2 L (8.4-10.2) mg/dL 11/29/16 11/29/16 11/29/16 Range/Units 06:20 08:00 10:03 RBC (4.30-5.90) m/uL Hgb (13.0-17.5) gm/dL Hct (39.0-53.0) % APTT (22.0-30.0) sec Sodium (137-145) mmol/L Glucose (74-99) mg/dL POC Glucose (mg/dL) 180 H 177 H 176 H (75-99) mg/dL Calcium (8.4-10.2) mg/dL 11/29/16 11/29/16 Range/Units 11:55 12:11 RBC (4.30-5.90) m/uL Hgb (13.0-17.5) gm/dL Hct (39.0-53.0) % APTT (22.0-30.0) sec Sodium (137-145) mmol/L Glucose (74-99) mg/dL POC Glucose (mg/dL) 141 H 143 H (75-99) mg/dL Calcium (8.4-10.2) mg/dL - Imaging and Cardiology Chest x-ray: report reviewed, image reviewed Assessment and Plan (1) Status post coronary artery bypass graft Status: Acute (2) Coronary artery disease Status: Acute (3) Family history of heart disease Status: Acute (4) History of PTCA Status: Acute (5) Hyperlipidemia Status: Acute (6) Hypertension Status: Acute (7) Nicotine dependence, chewing tobacco, uncomplicated Status: Acute Plan: 1. Continue ASA, Lipitor, heparin, Lopressor, lisinopril, digoxin, Lasix. 2. Continue amiodarone for atrial fibrillation prophylaxis. 3. Wean O2 as tolerated. 4. NG tube okay to be removed per Dr. Appiah once able to tolerate oral intake. Swallow eval ordered. 5. Continue TPN for until patient able to tolerate oral intake. 6. Insulin/diabetic management per primary care service. 7. Continue antibiotics per pulmonology. 8. Increase activity, out of bed to chair. Physical therapy following. 9. Daily labs, chest x-rays. 10. GI/DVT prophylaxis. 11. Potassium, magnesium replacement per protocol. Time with Patient: Greater than 30
--- NOTE | 2016-11-29 16:17 | P.PN ---
Subjective Principal diagnosis: Status post CABG, postoperative day # 19 61-year-old male patient with status post carotid bypass surgery and the patient is postop day #11. The patient has failed to wean off the mechanical ventilator. Immediately postop the patient had pulmonate complications including mucous plugs and atelectasis of the left lung. He required bronchoscopy and therapeutic airway suctioning and all of the respiratory cultures came back negative. This morning, the patient was on a volume cycled assist-control mode of ventilation at the rate of 20, tidal volume 450, FiO2 of 40% and a PEEP of 5. I reviewed the blood gases and I reviewed also the chest x -ray. I noted that the patient was unable to tolerate assist-control mode. Attempts to wean him off the sedation Emily as the patient was becoming restless and a successful the mechanical ventilator. Based on this, I switched this patient to a pressure support mode of ventilation and I was able to completely wean him off sedation. He was wide awake all he was hardly able to wiggle his toes or move his fingers and he was unable to raise his had or arms against gravity. He was having copious amount of rest or secretions and he was requiring frequent suctioning. At a later stage, switch this patient to a pressure control mode of ventilation with a PEEP of 7 and a pressure control of 20 and his FiO2 was At 60%. He remains hemodynamically stable. He is producing adequate amount of urine output. No pressors at this point. No fever. No chills. Chest tubes have been all removed. He is tolerating tube feeds. Atelectatic discussion with the cardiothoracic surgeon and will plan to proceed with a PEG and trach if the patient ultimately failed weaning. 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 On 11/22/2016 the patient remains intubated on a mechanical ventilator. I was able to the sedation completely on the patient. He is awake at this point and he had been awake throughout the night. He is following simple commands. Motor functions are nearly absent. The patient is extremely weak. He can wiggle his toes and occasionally bend his knees. Otherwise he cannot raise his arms and legs against gravity. He has a cough reflex. He can blink his eyes and raises eyebrows. Reflexes are significantly diminished in the upper and lower extremities bilaterally. Is on a pressure control mode of ventilation at the rate of 18, PC 18, PEEP of 7 and FiO2 of 50%. Still having significant respiratory secretions through the orotracheal tube. The chest x-ray from today shows moderate parenchymal opacity within the left lung base and the right lung base. There is some atelectatic changes in the lung bases more so on the left. The patient has also postop changes related to coronary artery bypass surgery. No fever. No chills. Hemodynamically stable. Producing adequate amount of urine output and the patient was diuresis with a combination of albumin and Lasix. He is on tube feeds. On 11/23/2016 the patient remains on a mechanical ventilator. Seems to be much more awake compared to yesterday. Motor functions remain weak over the patient is doing more activity and movement on today's evaluation. We were able to bring the patient is sitting up position for a total of 2 hours today. He tolerated well and following that he had a coughing spells and he had to be placed in bed. He remains in the same vent setting with a pressure control of 18, PEEP of 7, FiO2 of 50% and rate of 18. Chest x-ray shows adequate expansion of the left lung with a few being in good location. Sputum analysis showed Moraxella catarrhalis and the based on that the patient was started on Levaquin. Note that he had also Klebsiella PNEUMONIA IN HIS URINE, AND BOTH OF THESE MICROORGANISMS SHOULD RESPOND TO LEVAQUIN. Meanwhile, the patient is receiving enteral feeding for nutritional support. IV Solu Medrol is been discontinued. We'll doing daily physical therapy and passive range of motion. He remains on IV heparin. He remains on IV insulin for blood sugar control. Morning blood gases showed a pH of 7.51 with a pCO2 of 26 and pO2 of 79. Weaning parameters are still poor as the patient has rapid shallow breathing index around 120 and the patient becomes tachypneic and the LOW tidal volumes. On 11/24/2016 the patient is being seen in follow-up. Earlier this morning the patient was still mechanical ventilator on a pressure control mode. Chest x- ray from earlier this morning showed no significant abnormalities. There was improvement in aeration in lung bases bilaterally especially on the left. NG tube was still in a good location below the diaphragm. Meanwhile affect abdominal film was done this morning and that showed a component of ileus. Note that overnight, the patient's tube feeds were discontinued knowing that he had 2 bouts of emesis. Nevertheless, despite ongoing gastrointestinal abnormalities, the patient is doing very well while being on mechanical ventilator and is awake and alert. We checked his weaning parameters this morning and the numbers looked very well. He was given a pressure support of 5 and PEEP of 5 and a breathing trial for a total of 30 minutes and following that we made a decision to extubate this patient. This was a difficult decision to make knowing that the patient had an underlying abdominal ileus and he is still having significant motor weakness in the upper and lower extremities. Nevertheless, I noted that his motor function is improved his cough improved and he had very decent weaning parameters. I suspected that this will be his last chance of being extubated and if not successful, he will need a PEG and trach with the next 24 hours. Based on this, I extubated this patient. He remains on IV heparin. He remains on IV insulin. He is also on Levaquin. He is afebrile. He is awake and following commands. Motor function is gradually improving. No other new complaints otherwise for now. Noted post extubation, the patient was placed on 5 L of oxygen nasal cannula with saturation of 94-95%He continued to bleed comfortably. He was placed in sitting up position in ICU. 11/25/2016, the patient is being seen in follow-up in the intensive care unit. The patient has been extubated and has been off the mechanical ventilator for the past 24 hours. He is breathing comfortably. No significant rest or distress. NG tube is in place. There is considerable amount of output from the NG tube still in the abdomen is distended although less compared to yesterday. He had colonic ileus and some dilatation of the small bowel. A rectal tube was inserted and abdomen was quite deflated. He is producing some loose liquidy bowel movements yesterday and small amounts. Rectal examination was done and the patient does not have any impacted stool. No abdominal pain. No fever. No chills. He is in sinus rhythm for the time being and stable hemodynamics. Is producing adequate amount of urine output. All of the surgical wound sites are clean and intact. Neurologically is awake. There has been obvious improvement in the motor function and the patient is talking and communicating at this point. He remains on IV heparin. He remains on IV insulin for blood sugar control. White cell count is at 15.1. Hemoglobin is stable at 8.7. On 11/26/2016, the patient is being seen in follow-up. The patient is awake. Following commands and communicating. As mentioned earlier, profoundly weak although that has been steady and slow improvement in his motor function. NG tube in place. Abdomen remains distended. Flexeril of the abdomen shows ileus both large and small bowel. No bowel functional mobility at all over the past 12 hours. The patient is on Reglan. From the pulmonary standpoint, he is calm and comfortable. No labored breathing. Actually taking well on 3 L of oxygen by nasal cannula. The chest exit from today shows stable at ectatic changes small effusion the lung bases bilaterally. NG tube in place. Output is minimal at this point. Abdomen is tender get is soft and nontender. Bowel sounds are very hypoactive. Repeat abdominal films was reviewed and there is concern of ongoing large and small bowel ileus. He is on IV heparin. Remains on IV insulin for blood sugar control. Remains nothing by mouth for the time being. No leukocytosis. Cardiac rhythm is sinus. On 11/27/2016 I'm seeing this patient in follow-up. He is awake. He is communicating. NG tube is in place. Total amount of output from the NG tube is around 250 mL over the past 24 hours. Abdomen remains distended and tympanic and bowel sounds are hypoactive. CAT scan of the abdomen that was done showed a large bowel ileus. The patient is on Reglan. The patient was started on TPN for nutritional support. The CAT scan of the chest also showed some early dehiscence in the lower surgical incision with some surrounding swelling/hematoma. There is small better pleural effusion and atelectasis in the left lung base. No fever. No chills. Still on insulin drip. Still on a heparin drip. Right upper extremity is swollen and Artline catheter needs to be removed. On 11/28/2016, patient was seen on follow-up, continues to be about the same. Continues to have nasogastric tube in place, continues to have hypoactive bowel sounds and what seems to be an ileus. Patient remains on TPN for nutritional support, ultrasound of the right upper extremity showed no evidence of DVT. Chest x-ray showed cardiomegaly and small left pleural effusion. All labs were reviewed, PTT is therapeutic. Hemoglobin is 8.8 today. Basic metabolic profile is relatively normal. On 11/29/2016, patient seems to be a bit more active, and bit more verbal, and more responsive. Denies any shortness of breath, no cough no wheezing, no chest pain, no fever, no chills, no hemoptysis. Continues to have nasogastric tube in place, and his abdomen remains a bit distended. Remains on TPN, and I would like to have the swallow evaluation done by speech therapy hoping we could place the patient on oral diet. All his labs were reviewed. Electrolytes are normal PTT therapeutic CBC is normal hemoglobin is 8.6. Patient remains on physical therapy Objective - Vital Signs Vital signs: Vital Signs Temp 98.8 F 11/29/16 12:00 Pulse 72 11/29/16 16:13 Resp 23 11/29/16 15:00 BP 113/61 11/29/16 15:00 Pulse Ox 93 L 11/29/16 15:00 Intake & Output 11/28/16 11/29/16 11/29/16 18:59 06:59 18:59 Intake Total 2241.999 1749.747 524.945 Output Total 2740 2505 1575 Balance -498.001 -755.253 -1050.055 Weight 98.6 kg 99.4 kg 99.4 kg Intake: IV 470 220 180 .9 NaCL 220 180 Mvi, Adult No.4 with Vit 450 K 10 ml Trace (Conc-1Ml/ Dose) 1 ml Sodium Acetate 30 meq Potassium Chloride 20 meq Calcium Gluconate 1,000 mg In Amino Acid 5%-D25w 1,000 ml @ 30 mls/hr IV .Q24H [facility] Rx#:[id number] Potassium Chloride 10 meq 20 In Water For Injection 1 100ml.bag @ 100 mls/hr IVPB Q1H [facility] Rx#: [id number] Intake, IV Titration 7112.758 2446.747 344.945 Amount Amino Acid 5%-D25w+Lytes* 525 1000 E* 1,000 ml @ 75 mls/hr IV .BY DURATION [facility] Rx#: [id number] D5-0.45% NaCl with KCl 40 20Meq/l 1,000 ml @ 20 mls /hr IV .Q24H [facility] Rx#: [id number] Fat Emulsion 20% 250 ml 42 In Empty Bag 1 bag @ 21 mls/hr IV MoWeFr [facility] Rx#: [id number] Heparin Sodium,Porcine/ 500 D5w Pmx 25,000 unit In Dextrose/Water 1 500ml. bag @ 10 UNITS/KG/HR 19. 98 mls/hr IV .Q24H [facility] Rx #:[id number] Insulin Regular 100 unit 53.999 29.747 44.945 In Sodium Chloride 0.9% 100 ml @ Per Protocol IV .Q0M [facility] Rx#:[id number] Levofloxacin 750Mg-D5w 100 Pmx 750 mg In Dextrose/ Water 1 150ml.bag @ 100 mls/hr IVPB Q24H [facility] Rx#: [id number] Mvi, Adult No.4 with Vit 1011 K 10 ml Trace (Conc-1Ml/ Dose) 1 ml In Amino Acid 5%-D25w+Lytes*E* 1,000 ml @ 75 mls/hr IV .BY DURATION [facility] Rx#: [id number] Mvi, Adult No.4 with Vit 300 K 10 ml Trace (Conc-1Ml/ Dose) 1 ml Sodium Acetate 30 meq Potassium Chloride 20 meq Calcium Gluconate 1,000 mg In Amino Acid 5%-D25w 1,000 ml @ 75 mls/hr IV . [id number] [facility] Rx#:[id number] Output: Urine 2740 2505 1575 Other: Voiding Method Indwelling Catheter Indwelling Catheter Indwelling Catheter # Bowel Movements 2 ABP, PAP, CO, CI - Last Documented Arterial Blood Pressure 172/58 Pulmonary Artery Pressure 46/23 Cardiac Output 6.8 Cardiac Index 3.3 - Exam Head exam was generally normal. There was no scleral icterus or corneal arcus. Mucous membranes were moist.Neck was supple and without jugular venous distension, thyromegaly, or carotid bruits. Carotids were easily palpable bilaterally. There was no adenopathy. The patient has an NG tube in place and the patient has no stridor. He has some degree of crowding of the posterior oropharynx. Mucosal membranes are dry. Lung sounds are diminished in lung bases bilaterally otherwise clear. Heart sounds are regular, positive S1-S2, no cervical murmurs appreciated and sternum stable clean and intact. Abdomen is distended. This positive tympany. Bowel sounds are hypoactive. There is no direct tenderness. No rebound tensile guarding.Examination of the extremities revealed swelling in the right upper extremity compared to the left. There is trace edema lower extremities bilaterally.. There was no cyanosis, clubbing or edema. Neurologically, the patient is awake and alert. He is, indicating. No focal neurological deficit. Motor function is weak although improved compared to yesterday. The patient is able to raise his arms and legs against gravity. There is no focal neurological deficit at this point. He has a decent cough. He is also communicating and verbal. - Labs CBC & Chem 7: 11/29/16 04:50 11/29/16 04:50 Labs: Abnormal Lab Results - Last 24 Hours (Table) 11/28/16 11/28/16 11/28/16 Range/Units 18:00 20:13 22:08 RBC (4.30-5.90) m/uL Hgb (13.0-17.5) gm/dL Hct (39.0-53.0) % APTT (22.0-30.0) sec Sodium (137-145) mmol/L Glucose (74-99) mg/dL POC Glucose (mg/dL) 176 H 149 H 167 H (75-99) mg/dL Calcium (8.4-10.2) mg/dL 11/29/16 11/29/16 11/29/16 Range/Units 01:15 03:10 04:49 RBC (4.30-5.90) m/uL Hgb (13.0-17.5) gm/dL Hct (39.0-53.0) % APTT (22.0-30.0) sec Sodium (137-145) mmol/L Glucose (74-99) mg/dL POC Glucose (mg/dL) 158 H 169 H 166 H (75-99) mg/dL Calcium (8.4-10.2) mg/dL 11/29/16 11/29/16 11/29/16 Range/Units 04:50 04:50 04:50 RBC 2.68 L (4.30-5.90) m/uL Hgb 8.6 L (13.0-17.5) gm/dL Hct 26.2 L (39.0-53.0) % APTT 65.6 H (22.0-30.0) sec Sodium 134 L (137-145) mmol/L Glucose 161 H (74-99) mg/dL POC Glucose (mg/dL) (75-99) mg/dL Calcium 8.2 L (8.4-10.2) mg/dL 11/29/16 11/29/16 11/29/16 Range/Units 06:20 08:00 10:03 RBC (4.30-5.90) m/uL Hgb (13.0-17.5) gm/dL Hct (39.0-53.0) % APTT (22.0-30.0) sec Sodium (137-145) mmol/L Glucose (74-99) mg/dL POC Glucose (mg/dL) 180 H 177 H 176 H (75-99) mg/dL Calcium (8.4-10.2) mg/dL 11/29/16 11/29/16 Range/Units 11:55 12:11 RBC (4.30-5.90) m/uL Hgb (13.0-17.5) gm/dL Hct (39.0-53.0) % APTT (22.0-30.0) sec Sodium (137-145) mmol/L Glucose (74-99) mg/dL POC Glucose (mg/dL) 141 H 143 H (75-99) mg/dL Calcium (8.4-10.2) mg/dL Assessment and Plan Plan: 1 Coronary artery disease status post cardiac bypass surgery and the patient is postop day # 19 2 prolonged postoperative ventilator-dependent history failure, multifactorial. Patient has extubated. Nevertheless, the active ongoing problems for now is his neuromuscular weakness and ongoing ileus. Patient has a combination of large bowel ileus as evident on the flat film the abdomen. NG tube still in place. 3 recurrent mucous plugs with excessive respiratory secretions requiring bronchoscopy and a peak airway suctioning and a bronchoscopy cultures came back negative for any microbial growth. The most recent sputum analysis showing Moraxella catarrhalis and the patient is currently on Levaquin. Chest x-ray from today is showing atelectatic changes in lung bases bilaterally. Nevertheless the patient is oxygenating well and there is no respiratory distress at this point. 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 Despite this, the patient is having a nontoxic abdomen. No abdominal tenderness. No leukocytosis. No fever. No acidosis. NG tube is in place and the patient is still nothing by mouth. 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 Doubt infection Recommendation: Continue present supportive care measures, all evaluation to be done, continue physical therapy, consider discharge planning over the next one week. Possibly we could arrange for the patient to go to some sort of rehab facility eventually. Patient will definitely need long-term rehab. Time with Patient: Less than 30
[2016-11-29 16:29] LABS: Glucose,Whole Blood 137 mg/dL (75-99)
[2016-11-29] MEDS: LEVOFLOXACIN 750MG-D5W PMX 750 MG in DEXTROSE/WATER 1 150ML.BAG IVPB SCH (16:33)
[2016-11-29 18:16] LABS: Glucose,Whole Blood 164 mg/dL (75-99)
[2016-11-29 19:48] LABS: Glucose,Whole Blood 141 mg/dL (75-99)
[2016-11-29] MEDS: SENNOSIDES-DOCUSATE SODIUM 1 EACH TAB PO SCH (20:04)
[2016-11-29 22:04] LABS: Glucose,Whole Blood 126 mg/dL (75-99)
[2016-11-29] MEDS: POTASSIUM CHLORIDE ORAL LIQUID 40 MEQ/30 ML CUP NG-TUBE SCH (23:15)
[2016-11-30 00:03] LABS: Glucose,Whole Blood 127 mg/dL (75-99)
[2016-11-30] MEDS: HEPARIN SODIUM,PORCINE/D5W PMX 25,000 UNIT in DEXTROSE/WATER 1 500ML.BAG IV SCH ×2 (00:32→13:52)
[2016-11-30] MEDS: POTASSIUM CHLORIDE ORAL LIQUID 40 MEQ/30 ML CUP NG-TUBE SCH (00:36)
[2016-11-30 02:06] LABS: Glucose,Whole Blood 143 mg/dL (75-99)
[2016-11-30] MEDS: 1: MVI, ADULT NO.4 WITH VIT K 10 ML, TRACE (CONC-1ML/DOSE) 1 ML in AMINO ACID 5%-D25W+LY IV SCH ×6 (03:19→16:18)
[2016-11-30 04:27] LABS: Glucose,Whole Blood 142 mg/dL (75-99)
[2016-11-30 05:02] LABS: Basophils # (A) 0.1 k/uL (0-0.2); Basophils % (A) 0 %; CH 32.1; Eosinophils # (A) 0.5 k/uL (0-0.7); Eosinophils % (A) 4 %; HGB 8.7 gm/dL (13.0-17.5); Luc # (Auto) 0.39; Luc % (Auto) 3; Lymphocytes # (A) 2.3 k/uL (1.0-4.8); Lymphocytes % (A) 19 %; MCH 32.5 pg (25.0-35.0); MCHC 33.3 g/dL (31.0-37.0); MCV 97.8 fL (80.0-100.0); Mean Platelet Volume 7.3; Monocytes # (A) 0.7 k/uL (0-1.0); Monocytes % (A) 6 %; Neutrophils # (A) 8.4 k/uL (1.3-7.7); Neutrophils % (A) 68 %; RBC 2.66 m/uL (4.30-5.90); WBC 12.4 k/uL (3.8-10.6); WBC (Perox) 12.15
[2016-11-30] MEDS: METOCLOPRAMIDE 5 MG/ML 2 ML VIAL IVP SCH ×3 (05:13→18:14)
[2016-11-30 05:31] LABS: Ionized Calcium 4.9 mg/dL (4.5-5.3)
[2016-11-30 05:42] LABS: Anion Gap 6 mmol/L; Blood Urea Nitrogen 14 mg/dL (9-20); Carbon Dioxide 27 mmol/L (22-30); Chloride 102 mmol/L (98-107); Glucose 122 mg/dL (74-99); Magnesium 1.8 mg/dL (1.6-2.3); Non-African American GFR(MDRD) >60 (>60 ml/min/1.73 sqM); Phosphorous 3.2 mg/dL (2.5-4.5); Potassium 3.8 mmol/L (3.5-5.1); Sodium 135 mmol/L (137-145)
[2016-11-30 05:45] LABS: Glucose,Whole Blood 124 mg/dL (75-99)
[2016-11-30] MEDS: MAGNESIUM SULFATE-D5W PMX 1 GM in DEXTROSE/WATER 1 100ML.BAG IVPB SCH ×2 (06:36→07:51)
[2016-11-30] MEDS ORDERED: POTASSIUM CHLORIDE ORAL LIQUID 40 MEQ/30 ML CUP NG-TUBE SCH (07:00)
[2016-11-30] MEDS: BUDESONIDE 1 MG/2 ML NEBU INHALATION SCH ×2 (07:53→19:30)
[2016-11-30] MEDS: IPRATROPIUM-ALBUTEROL 3 ML NEB INHALATION SCH ×4 (07:55→19:30)
--- NOTE | 2016-11-30 08:02 | XR ---
EXAMINATION TYPE: XR chest 1V portable DATE OF EXAM: 11/30/2016 6:47 AM Comparison: 11/29/2016 Clinical History: 61-year-old male postop CABG. Findings: NG tube courses below the diaphragms. Multiple EKG lines are looped over the mid chest. An ET tube is not clearly seen. Left PICC tip at the uppermost right atrium. Moderate cardiomegaly persists. Diffu se interstitial prominence. Small left pleural effusion with retrocardiac atelectasis again noted. Mi ld diffuse interstitial prominence. Impression: 1. NG tube is present. ET tube not clearly seen but multiple EKG leads are looped over the mid chest. 2. Cardiomegaly and mild pulmonary vascular congestion. 3. Continued small left pleural effusion with retrocardiac atelectasis.
[2016-11-30 08:05] LABS: Glucose,Whole Blood 151 mg/dL (75-99)
[2016-11-30] MEDS: ASPIRIN 325 MG TAB PO SCH (08:29)
[2016-11-30] MEDS: FUROSEMIDE 10 MG/ML 2 ML VIAL IV SCH ×2 (08:30→21:03)
[2016-11-30] MEDS: METOPROLOL TARTRATE 50 MG TAB PO SCH ×2 (08:30→21:04)
[2016-11-30] MEDS: DIGOXIN 250 MCG TAB OG-TUBE SCH (08:30)
[2016-11-30] MEDS: ATORVASTATIN 40 MG TAB PO SCH (08:30)
[2016-11-30] MEDS: AMIODARONE 200 MG TAB PO SCH (08:30)
[2016-11-30] MEDS: LISINOPRIL 10 MG TAB PO SCH ×2 (08:31→21:04)
[2016-11-30] MEDS: PANTOPRAZOLE 40 MG/10 ML VIAL IVP SCH (08:31)
[2016-11-30] MEDS: THIAMINE 100 MG TAB PO SCH ×2 (08:31→21:04)
[2016-11-30 10:15] LABS: Glucose,Whole Blood 178 mg/dL (75-99)
[2016-11-30] MEDS: INSULIN REGULAR 100 UNIT in SODIUM CHLORIDE 0.9% 100 ML IV SCH ×2 (10:17→21:02)
[2016-11-30 11:50] LABS: Glucose,Whole Blood 142 mg/dL (75-99)
--- NOTE | 2016-11-30 12:09 | P.PN ---
<Madhu Brush L - Last Filed: 11/30/16 11:35> Progress Note - Text CV Surgery Nursing Principal diagnosis: Coronary artery disease, status post prior stenting to his right coronary artery. Preserved left ventricular function. Hyperlipidemia. Hypertension. ETOH abuse. POD #20 total arterial non-aortic patch off-pump double coronary artery bypass grafting using in situ skeletonized right internal mammary artery to the left anterior descending artery across the anterior midline in situ totally skeletonized left internal mammary artery to the first obtuse marginal artery. Intraoperative transesophageal echocardiogram and epi-aortic scanning. Intraoperative graft flow measurements using the [employer] system POD #20 flexible bronchoscopy with bronchial washings secondary to postoperative mucous plugging with increasing oxygen demand the night of surgery. Pt had acute hypoxic post operative respiratory failure as an unexpected post-surgical condition, related to the patient's underlying medical comorbidities. Sputum culture grew out Moraxella, blood cultures are negative to date, urine culture grew Klebsiella. Patient placed on Levaquin per pulmonology on 11/22/2016. Pt developed postoperative alcohol withdrawal requiring increased sedation and prolonged mechanical ventilation. Patient developed postoperative ileus, an unexpected post-surgical condition, currently resolving. Currently receiving TPN for nutrition. General surgery are on consult, no intervention at this time. Patient awake and alert, oriented [address] He was reoriented to time. No distress noted, no specific complaints. Vital Signs: Afebrile Vital Signs - 24 hr 11/29/16 11/29/16 11/29/16 12:00 12:47 13:00 Temperature 98.8 F Pulse Rate 69 68 72 Respiratory 16 16 Rate Blood Pressure 98/61 82/58 O2 Sat by Pulse 95 95 Oximetry 11/29/16 11/29/16 11/29/16 14:00 15:00 16:00 Temperature 98.9 F Pulse Rate 73 80 69 Respiratory 21 23 16 Rate Blood Pressure 94/62 113/61 109/62 O2 Sat by Pulse 94 L 93 L 92 L Oximetry 11/29/16 11/29/16 11/29/16 16:02 16:13 17:00 Temperature Pulse Rate 69 72 73 Respiratory 18 Rate Blood Pressure 86/57 O2 Sat by Pulse 94 L Oximetry 11/29/16 11/29/16 11/29/16 18:00 19:00 20:00 Temperature 99.4 F Pulse Rate 78 74 76 Respiratory 21 16 21 Rate Blood Pressure 117/59 114/66 112/61 O2 Sat by Pulse 86 L 96 93 L Oximetry 11/29/16 11/29/16 11/29/16 20:13 20:26 21:00 Temperature Pulse Rate 77 69 65 Respiratory 18 Rate Blood Pressure 117/63 O2 Sat by Pulse 96 Oximetry 11/29/16 11/29/16 11/30/16 22:00 23:00 00:00 Temperature 99.4 F Pulse Rate 66 67 65 Respiratory 19 20 14 Rate Blood Pressure 106/53 116/80 83/47 O2 Sat by Pulse 95 94 L 96 Oximetry 11/30/16 11/30/16 11/30/16 00:02 01:00 02:00 Temperature Pulse Rate 66 64 65 Respiratory 18 18 19 Rate Blood Pressure 83/47 99/47 116/64 O2 Sat by Pulse 97 97 95 Oximetry 11/30/16 11/30/16 11/30/16 03:00 04:00 05:00 Temperature 99.1 F Pulse Rate 64 66 66 Respiratory 18 19 16 Rate Blood Pressure 111/58 103/58 111/60 O2 Sat by Pulse 93 L 96 93 L Oximetry 11/30/16 11/30/16 11/30/16 06:00 07:00 07:55 Temperature Pulse Rate 64 66 67 Respiratory 14 16 16 Rate Blood Pressure 126/61 131/64 O2 Sat by Pulse 98 96 Oximetry 11/30/16 11/30/16 11/30/16 08:00 08:10 09:00 Temperature 98.6 F Pulse Rate 67 71 62 Respiratory 20 20 Rate Blood Pressure 121/65 135/67 O2 Sat by Pulse 97 98 Oximetry 11/30/16 11/30/16 10:00 11:00 Temperature Pulse Rate 58 L 60 Respiratory 15 18 Rate Blood Pressure 119/60 100/54 O2 Sat by Pulse 93 L 95 Oximetry Labs: Short CBC 11/30/16 Range/Units 04:55 WBC 12.4 H (3.8-10.6) k/uL Hgb 8.7 L (13.0-17.5) gm/dL Hct 26.0 L (39.0-53.0) % Plt Count 326 (150-450) k/uL Neutrophils # 8.4 H (1.3-7.7) k/uL BMP 05/02/17 05/03/17 21:15 04:55 Sodium 135 L Potassium 3.4 L 3.8 Chloride 102 Carbon Dioxide 27 BUN 14 Creatinine 0.70 Glucose 122 H Calcium 8.0 L Microbiology 11/10/16 16:40 Lung - Right Acid Fast Bacilli Smear - Final 11/10/16 16:40 Lung - Right Acid Fast Bacilli Culture - Preliminary 11/21/16 02:00 Blood Blood Culture - Final No Growth after 144 hours 11/21/16 04:40 Sputum Gram Stain - Final 11/21/16 04:40 Sputum Sputum Culture - Final Moraxella(branhamella) catarra 11/20/16 17:44 Urine,Catheterized Urine Culture - Final Klebsiella pneumoniae 11/10/16 16:40 Lung - Right Fungal Culture - Preliminary Rhiannon tropicalis 11/10/16 16:40 Lung Aspirate - Right Gram Stain - Final 11/10/16 16:40 Lung Aspirate - Right Bronchial Washings Culture - Final IV Fluids: 0.9% normal saline at 20 mL per hour TPN at 75 mL per hour Insulin drip at 7 units per hour Heparin drip at 18 units per kilogram per hour. Lungs: Coarse rhonchi throughout, diminished bilateral bases. Respirations are symmetrical and unlabored. O2 sat: 95% on 2 L nasal cannula. I/S: 250-500 mL, reviewed with the patient important of using his incentive spirometry every hour while awake. The patient did give a good return demonstration on his incentive spirometry but will need encouragement and coaching with the use. Heart: S1S2, regular rhythm and rate, negative for S3, gallop or murmur. Bedside telemetry showing normal sinus rhythm heart rate 67. Sternum stable, chest incision clean with dressing clean and dry. Heart hugger in place, the patient is unable to use his heart hugger appropriately due to generalized upper body weakness and will need assistance and teaching with the heart hugger. Knee-high CEZAR hose and sequential compression devices in place to bilateral lower extremities. Generalized +1 to +2 edema, +2 to +3 edema to his right hand and right arm. Right arm venous Doppler which was completed on 11/28/2016 demonstrated no evidence of deep vein thrombosis. Abdomen: Soft, slightly distended, positive bowel sounds present in all 4 quadrants. NG tube remains in place to low wall suction. 500 mL of output in the last 24 hours. CBGs: 85-163 mg/dL in the last 24 hours. U/O: Adequate, Tay catheter for accurate I&O. 1125 mL output in the last 8 hours. 24 hr Total: Intake & Output 11/28/16 11/29/16 11/30/16 12/01/16 06:59 06:59 06:59 06:59 Intake Total 2573.828 3991.746 4007.480 784.743 Output Total 4070 5245 4290 1325 Balance -1496.172 -1253.254 -282.520 -540.257 Weight 98.6 kg 99.4 kg 97 kg Active Medications Albuterol/Ipratropium (Duoneb 0.5 Mg-3 Mg/3 Ml Soln) 3 ml INHALATION RT-QID [facility] Last Admin: 11/30/16 07:55 Dose: 3 ml Albuterol/Ipratropium (Duoneb 0.5 Mg-3 Mg/3 Ml Soln) 3 ml INHALATION RT-QID PRN PRN Reason: Shortness Of Breath Or Wheezing Last Admin: 11/26/16 23:10 Dose: 3 ml Amiodarone HCl (Cordarone) 200 mg PO DAILY [facility] Aspirin (Aspirin) 325 mg PO DAILY [facility] Last Admin: 11/30/16 08:29 Dose: 325 mg Atorvastatin Calcium (Lipitor) 40 mg PO DAILY [facility] Last Admin: 11/30/16 08:30 Dose: 40 mg Benzocaine (Hurricaine [place]) 1 applic MUCOUS MEM QID PRN PRN Reason: Mouth Irritation Last Admin: 11/14/16 11:36 Dose: 1 applic Bisacodyl (Dulcolax) 10 mg RECTAL DAILY PRN PRN Reason: Constipation Last Admin: 11/16/16 17:18 Dose: 10 mg Budesonide (Pulmicort) 1 mg INHALATION RT-BID [facility] Last Admin: 11/30/16 07:53 Dose: 1 mg Digoxin (Lanoxin) 250 mcg OG-TUBE DAILY [facility] Last Admin: 11/30/16 08:30 Dose: 250 mcg Furosemide (Lasix) 20 mg IV Q12HR [facility] Last Admin: 11/30/16 08:30 Dose: 20 mg Haloperidol Lactate (Haldol) 2 mg IVP HS PRN PRN Reason: Agitation or Acute Psychosis Heparin Sodium (Porcine) (Heparin) 0 unit IV PER PROTOCOL PRN; Protocol PRN Reason: Low PTT Last Admin: 11/25/16 16:34 Dose: 2,440 unit Hydralazine HCl (Apresoline) 10 mg IVP Q4HR PRN PRN Reason: Blood Pressure - High Last Admin: 11/24/16 12:22 Dose: 10 mg Heparin Sodium/Dextrose 25,000 (unit/ IV Solution) 500 mls @ 19.98 mls/hr IV .Q24H [place]INA; 10 UNITS/KG/HR PRN Reason: Protocol Last Titration: 11/30/16 06:04 Dose: 18 units/kg/hr, 35.96 mls/hr Levofloxacin 750 mg/ IV (Solution) 150 mls @ 100 mls/hr IVPB Q24H [facility] Last Admin: 11/29/16 16:33 Dose: 100 mls/hr Insulin Human Regular 100 unit (/ Sodium Chloride) 101 mls @ 0 mls/hr IV .Q0M [facility]; Per Protocol PRN Reason: Protocol Last Titration: 11/30/16 11:50 Dose: 9 unit/hr, 9.09 mls/hr Fat Emulsion Intravenous 250 (ml/ IV Solution) 250 mls @ 21 mls/hr IV MoWeFr [facility] Last Admin: 11/28/16 17:09 Dose: 21 mls/hr Parenteral Vitamin Supplement 10 ml/ Chromium/Copper/Manganese/Seleni/Zn 1 ml/ Amino Ac/Electrol/Dextrose/Calcium 1,011 mls @ 75 mls/hr IV .BY DURATION [facility] Last Admin: 11/30/16 03:19 Dose: 75 mls/hr Amino Ac/Electrol/Dextrose/Calcium (Clinimix E 5%-D25% Solution) 1,000 mls @ 75 mls/hr IV .BY DURATION [facility] Last Admin: 11/29/16 13:42 Dose: 75 mls/hr Iron/Minerals/Multivitamins (Theragran Liquid) 15 ml PO DAILY@1200 [facility] Last Admin: 11/26/16 19:35 Dose: 15 ml Lisinopril (Zestril) 10 mg PO BID [facility] Last Admin: 11/30/16 08:31 Dose: 10 mg Magnesium Hydroxide (Milk Of Magnesia) 2,400 mg PO BID PRN PRN Reason: Constipation Metoclopramide HCl (Reglan) 10 mg IVP Q6HR [facility] Last Admin: 11/30/16 11:50 Dose: 10 mg Metoprolol Tartrate (Lopressor) 50 mg PO BID [facility] Last Admin: 11/30/16 08:30 Dose: 50 mg Miscellaneous Information (Magnesium Per Protocol) 1 each MISCELLANE DAILY PRN ; Protocol PRN Reason: Per Protocol Miscellaneous Information (Phosphorus Per Protocol) 1 each MISCELLANE DAILY PRN ; Protocol PRN Reason: Per Protocol Miscellaneous Information (Potassium Per Protocol) 1 each MISCELLANE DAILY PRN ; Protocol PRN Reason: Per Protocol Morphine Sulfate (Morphine Sulfate (Inj)) 2 mg IVP Q4H PRN PRN Reason: Severe Pain Ondansetron HCl (Zofran) 4 mg IVP Q6HR PRN PRN Reason: Nausea And Vomiting Pantoprazole Sodium (Protonix) 40 mg IVP DAILY [facility] Last Admin: 11/30/16 08:31 Dose: 40 mg Senna/Docusate Sodium (Senokot-S) 2 each PO HS [facility] Last Admin: 11/29/16 20:04 Dose: Not Given Sodium Chloride (Saline Flush) 10 ml IV BID [facility] Last Admin: 11/30/16 08:31 Dose: Not Given Sodium Chloride (Saline Flush) 20 ml IV Q4HR PRN PRN Reason: PICC Line Sodium Chloride (Saline Flush) 10 ml IV WEEKLY [facility] Last Admin: 11/24/16 08:46 Dose: Not Given Sodium Chloride (Saline Flush) 10 ml IV Q4HR PRN PRN Reason: PICC Line Thiamine HCl (Vitamin B-1) 100 mg PO BID [facility] Last Admin: 11/30/16 08:31 Dose: 100 mg Plan: 1. Continue ASA, Lipitor, heparin, Lopressor, lisinopril, digoxin, and Lasix. 2. Amiodarone will be decreased to 200 mg by mouth daily for atrial fibrillation prophylaxis. 3. Wean O2 as tolerated. Dr. Jung is following for pulmonary management. 4. NG tube will remain in place at this time as the patient is going to have a barium swallow in a.m. He had a successful swallow bedside study today, per the speech therapist. 5. Continue TPN for until patient able to tolerate oral intake. 6. Insulin/diabetic management per primary care service. 7. Continue Levaquin, managed per pulmonology. 8. Increase activity, out of bed to chair. Physical therapy following. 9. Daily labs, chest x-rays. 10. GI/DVT prophylaxis. 11. Magnesium replacement per protocol. 12. Further recommendations to follow as patient progresses. <Thaddeus Kessler - Last Filed: 11/30/16 16:39> Progress Note - Text The patient was seen and examined. I agree with the above assessment and plan. Neurologically he appears to be slightly more awake since my last examination. He is moving all extremities and answering questions. He still has a fair amount of secretions for which he needs continued pulmonary toilet. He did pass his swallow test and will be undergoing additional testing tomorrow. He will be started on clear liquids. Otherwise he is receiving TPN. He'll likely be transferred to [facility] soon.
--- NOTE | 2016-11-30 12:41 | P.PN ---
Progress Note - Text This is a 61-year-old gentleman who is status post prior to coronary bypass surgery. Patient had a prolonged stay in ICU on mechanical ventilator support. He is also had some neuromuscular weakness. The patient was in and out atrial fibrillation with RVR. But he was converted to normal sinus mechanism 3 days ago. He is on metoprolol, amiodarone, and digoxin. The blood pressure has been stable. He is on heparin for anticoagulation From the cardiovascular standpoint overview, we'll continue the current medical treatment. The patient is feeling at her slowly.
--- NOTE | 2016-11-30 14:02 | P.PN ---
Subjective Principal diagnosis: Status post CABG, postoperative day # 20 61-year-old male patient with status post carotid bypass surgery and the patient is postop day #11. The patient has failed to wean off the mechanical ventilator. Immediately postop the patient had pulmonate complications including mucous plugs and atelectasis of the left lung. He required bronchoscopy and therapeutic airway suctioning and all of the respiratory cultures came back negative. This morning, the patient was on a volume cycled assist-control mode of ventilation at the rate of 20, tidal volume 450, FiO2 of 40% and a PEEP of 5. I reviewed the blood gases and I reviewed also the chest x -ray. I noted that the patient was unable to tolerate assist-control mode. Attempts to wean him off the sedation Emily as the patient was becoming restless and a successful the mechanical ventilator. Based on this, I switched this patient to a pressure support mode of ventilation and I was able to completely wean him off sedation. He was wide awake all he was hardly able to wiggle his toes or move his fingers and he was unable to raise his had or arms against gravity. He was having copious amount of rest or secretions and he was requiring frequent suctioning. At a later stage, switch this patient to a pressure control mode of ventilation with a PEEP of 7 and a pressure control of 20 and his FiO2 was At 60%. He remains hemodynamically stable. He is producing adequate amount of urine output. No pressors at this point. No fever. No chills. Chest tubes have been all removed. He is tolerating tube feeds. Atelectatic discussion with the cardiothoracic surgeon and will plan to proceed with a PEG and trach if the patient ultimately failed weaning. 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 On 11/22/2016 the patient remains intubated on a mechanical ventilator. I was able to the sedation completely on the patient. He is awake at this point and he had been awake throughout the night. He is following simple commands. Motor functions are nearly absent. The patient is extremely weak. He can wiggle his toes and occasionally bend his knees. Otherwise he cannot raise his arms and legs against gravity. He has a cough reflex. He can blink his eyes and raises eyebrows. Reflexes are significantly diminished in the upper and lower extremities bilaterally. Is on a pressure control mode of ventilation at the rate of 18, PC 18, PEEP of 7 and FiO2 of 50%. Still having significant respiratory secretions through the orotracheal tube. The chest x-ray from today shows moderate parenchymal opacity within the left lung base and the right lung base. There is some atelectatic changes in the lung bases more so on the left. The patient has also postop changes related to coronary artery bypass surgery. No fever. No chills. Hemodynamically stable. Producing adequate amount of urine output and the patient was diuresis with a combination of albumin and Lasix. He is on tube feeds. On 11/23/2016 the patient remains on a mechanical ventilator. Seems to be much more awake compared to yesterday. Motor functions remain weak over the patient is doing more activity and movement on today's evaluation. We were able to bring the patient is sitting up position for a total of 2 hours today. He tolerated well and following that he had a coughing spells and he had to be placed in bed. He remains in the same vent setting with a pressure control of 18, PEEP of 7, FiO2 of 50% and rate of 18. Chest x-ray shows adequate expansion of the left lung with a few being in good location. Sputum analysis showed Moraxella catarrhalis and the based on that the patient was started on Levaquin. Note that he had also Klebsiella PNEUMONIA IN HIS URINE, AND BOTH OF THESE MICROORGANISMS SHOULD RESPOND TO LEVAQUIN. Meanwhile, the patient is receiving enteral feeding for nutritional support. IV Solu Medrol is been discontinued. We'll doing daily physical therapy and passive range of motion. He remains on IV heparin. He remains on IV insulin for blood sugar control. Morning blood gases showed a pH of 7.51 with a pCO2 of 26 and pO2 of 79. Weaning parameters are still poor as the patient has rapid shallow breathing index around 120 and the patient becomes tachypneic and the LOW tidal volumes. On 11/24/2016 the patient is being seen in follow-up. Earlier this morning the patient was still mechanical ventilator on a pressure control mode. Chest x- ray from earlier this morning showed no significant abnormalities. There was improvement in aeration in lung bases bilaterally especially on the left. NG tube was still in a good location below the diaphragm. Meanwhile affect abdominal film was done this morning and that showed a component of ileus. Note that overnight, the patient's tube feeds were discontinued knowing that he had 2 bouts of emesis. Nevertheless, despite ongoing gastrointestinal abnormalities, the patient is doing very well while being on mechanical ventilator and is awake and alert. We checked his weaning parameters this morning and the numbers looked very well. He was given a pressure support of 5 and PEEP of 5 and a breathing trial for a total of 30 minutes and following that we made a decision to extubate this patient. This was a difficult decision to make knowing that the patient had an underlying abdominal ileus and he is still having significant motor weakness in the upper and lower extremities. Nevertheless, I noted that his motor function is improved his cough improved and he had very decent weaning parameters. I suspected that this will be his last chance of being extubated and if not successful, he will need a PEG and trach with the next 24 hours. Based on this, I extubated this patient. He remains on IV heparin. He remains on IV insulin. He is also on Levaquin. He is afebrile. He is awake and following commands. Motor function is gradually improving. No other new complaints otherwise for now. Noted post extubation, the patient was placed on 5 L of oxygen nasal cannula with saturation of 94-95%He continued to bleed comfortably. He was placed in sitting up position in ICU. 11/25/2016, the patient is being seen in follow-up in the intensive care unit. The patient has been extubated and has been off the mechanical ventilator for the past 24 hours. He is breathing comfortably. No significant rest or distress. NG tube is in place. There is considerable amount of output from the NG tube still in the abdomen is distended although less compared to yesterday. He had colonic ileus and some dilatation of the small bowel. A rectal tube was inserted and abdomen was quite deflated. He is producing some loose liquidy bowel movements yesterday and small amounts. Rectal examination was done and the patient does not have any impacted stool. No abdominal pain. No fever. No chills. He is in sinus rhythm for the time being and stable hemodynamics. Is producing adequate amount of urine output. All of the surgical wound sites are clean and intact. Neurologically is awake. There has been obvious improvement in the motor function and the patient is talking and communicating at this point. He remains on IV heparin. He remains on IV insulin for blood sugar control. White cell count is at 15.1. Hemoglobin is stable at 8.7. On 11/26/2016, the patient is being seen in follow-up. The patient is awake. Following commands and communicating. As mentioned earlier, profoundly weak although that has been steady and slow improvement in his motor function. NG tube in place. Abdomen remains distended. Flexeril of the abdomen shows ileus both large and small bowel. No bowel functional mobility at all over the past 12 hours. The patient is on Reglan. From the pulmonary standpoint, he is calm and comfortable. No labored breathing. Actually taking well on 3 L of oxygen by nasal cannula. The chest exit from today shows stable at ectatic changes small effusion the lung bases bilaterally. NG tube in place. Output is minimal at this point. Abdomen is tender get is soft and nontender. Bowel sounds are very hypoactive. Repeat abdominal films was reviewed and there is concern of ongoing large and small bowel ileus. He is on IV heparin. Remains on IV insulin for blood sugar control. Remains nothing by mouth for the time being. No leukocytosis. Cardiac rhythm is sinus. On 11/27/2016 I'm seeing this patient in follow-up. He is awake. He is communicating. NG tube is in place. Total amount of output from the NG tube is around 250 mL over the past 24 hours. Abdomen remains distended and tympanic and bowel sounds are hypoactive. CAT scan of the abdomen that was done showed a large bowel ileus. The patient is on Reglan. The patient was started on TPN for nutritional support. The CAT scan of the chest also showed some early dehiscence in the lower surgical incision with some surrounding swelling/hematoma. There is small better pleural effusion and atelectasis in the left lung base. No fever. No chills. Still on insulin drip. Still on a heparin drip. Right upper extremity is swollen and Artline catheter needs to be removed. On 11/28/2016, patient was seen on follow-up, continues to be about the same. Continues to have nasogastric tube in place, continues to have hypoactive bowel sounds and what seems to be an ileus. Patient remains on TPN for nutritional support, ultrasound of the right upper extremity showed no evidence of DVT. Chest x-ray showed cardiomegaly and small left pleural effusion. All labs were reviewed, PTT is therapeutic. Hemoglobin is 8.8 today. Basic metabolic profile is relatively normal. On 11/29/2016, patient seems to be a bit more active, and bit more verbal, and more responsive. Denies any shortness of breath, no cough no wheezing, no chest pain, no fever, no chills, no hemoptysis. Continues to have nasogastric tube in place, and his abdomen remains a bit distended. Remains on TPN, and I would like to have the swallow evaluation done by speech therapy hoping we could place the patient on oral diet. All his labs were reviewed. Electrolytes are normal PTT therapeutic CBC is normal hemoglobin is 8.6. Patient remains on physical therapy On 12/27/2016, patient seems to be doing relatively well, about the same compared to yesterday. The main issue at this point seems to be issue of feeding, patient failed his swallow evaluation, and we would start feeding at least at a slow pace using his nasogastric tube, patient may eventually need a Dobbhoff or he may need a PEG tube placement. CBC was reviewed, hemoglobin is 8.7. Electrolytes and renal profile are normal. WBC count is 12.4. Chest x- ray showed small bilateral pleural effusions. Objective - Vital Signs Vital signs: Vital Signs Temp 98.3 F 11/30/16 12:00 Pulse 64 11/30/16 13:00 Resp 15 11/30/16 13:00 BP 119/64 11/30/16 13:00 Pulse Ox 95 11/30/16 13:00 Intake & Output 11/29/16 11/30/16 11/30/16 18:59 06:59 18:59 Intake Total 4017.188 7195.855 1262.431 Output Total 1735 2555 1600 Balance -22.375 -260.145 -337.569 Weight 99.4 kg 97 kg Intake: IV 240 420 140 .9 NaCL 240 420 140 Intake, IV Titration 0321.113 9942.855 1052.431 Amount Amino Acid 5%-D25w+Lytes* 75 600 E* 1,000 ml @ 75 mls/hr IV .BY DURATION [facility] Rx#: [id number] Heparin Sodium,Porcine/ 721.112 277.688 D5w Pmx 25,000 unit In Dextrose/Water 1 500ml. bag @ 10 UNITS/KG/HR 19. 98 mls/hr IV .Q24H [facility] Rx #:[id number] Insulin Regular 100 unit 86.625 73.743 49.743 In Sodium Chloride 0.9% 100 ml @ Per Protocol IV .Q0M [facility] Rx#:[id number] Magnesium Sulfate-D5w Pmx 300 75 1 gm In Dextrose/Water 1 100ml.bag @ 100 mls/hr IVPB Q1H [facility] Rx#: [id number] Magnesium Sulfate-D5w Pmx 200 1 gm In Dextrose/Water 1 100ml.bag @ 100 mls/hr IVPB Q1H [facility] Rx#: [id number] Mvi, Adult No.4 with Vit 1011 K 10 ml Trace (Conc-1Ml/ Dose) 1 ml In Amino Acid 5%-D25w+Lytes*E* 1,000 ml @ 75 mls/hr IV .BY DURATION [facility] Rx#: [id number] Mvi, Adult No.4 with Vit 300 450 K 10 ml Trace (Conc-1Ml/ Dose) 1 ml Sodium Acetate 30 meq Potassium Chloride 20 meq Calcium Gluconate 1,000 mg In Amino Acid 5%-D25w 1,000 ml @ 75 mls/hr IV . [id number] [facility] Rx#:[id number] Tube Feeding 10 Other 180 60 Output: Gastric Drainage 500 Urine 1735 2055 1600 Other: Voiding Method Indwelling Catheter Indwelling Catheter Indwelling Catheter ABP, PAP, CO, CI - Last Documented Arterial Blood Pressure 172/58 Pulmonary Artery Pressure 46/23 Cardiac Output 6.8 Cardiac Index 3.3 - Exam Head exam was generally normal. There was no scleral icterus or corneal arcus. Mucous membranes were moist.Neck was supple and without jugular venous distension, thyromegaly, or carotid bruits. Carotids were easily palpable bilaterally. There was no adenopathy. The patient has an NG tube in place and the patient has no stridor. He has some degree of crowding of the posterior oropharynx. Mucosal membranes are dry. Lung sounds are diminished in lung bases bilaterally otherwise clear. Heart sounds are regular, positive S1-S2, no cervical murmurs appreciated and sternum stable clean and intact. Abdomen is distended. This positive tympany. Bowel sounds are hypoactive. There is no direct tenderness. No rebound tensile guarding.Examination of the extremities revealed swelling in the right upper extremity compared to the left. There is trace edema lower extremities bilaterally.. There was no cyanosis, clubbing or edema. Neurologically, the patient is awake and alert. He is, indicating. No focal neurological deficit. Motor function is weak although improved compared to yesterday. The patient is able to raise his arms and legs against gravity. There is no focal neurological deficit at this point. He has a decent cough. He is also communicating and verbal. - Labs CBC & Chem 7: 11/30/16 04:55 11/30/16 12:02 Labs: Abnormal Lab Results - Last 24 Hours (Table) 11/29/16 11/29/16 11/29/16 Range/Units 16:26 18:13 19:45 WBC (3.8-10.6) k/uL RBC (4.30-5.90) m/uL Hgb (13.0-17.5) gm/dL Hct (39.0-53.0) % Neutrophils # (1.3-7.7) k/uL APTT (22.0-30.0) sec Sodium (137-145) mmol/L Potassium (3.5-5.1) mmol/L Glucose (74-99) mg/dL POC Glucose (mg/dL) 137 H 164 H 141 H (75-99) mg/dL Calcium (8.4-10.2) mg/dL 11/29/16 11/29/16 11/30/16 Range/Units 21:15 22:02 00:01 WBC (3.8-10.6) k/uL RBC (4.30-5.90) m/uL Hgb (13.0-17.5) gm/dL Hct (39.0-53.0) % Neutrophils # (1.3-7.7) k/uL APTT (22.0-30.0) sec Sodium (137-145) mmol/L Potassium 3.4 L (3.5-5.1) mmol/L Glucose (74-99) mg/dL POC Glucose (mg/dL) 126 H 127 H (75-99) mg/dL Calcium (8.4-10.2) mg/dL 11/30/16 11/30/16 11/30/16 Range/Units 02:04 04:25 04:55 WBC (3.8-10.6) k/uL RBC (4.30-5.90) m/uL Hgb (13.0-17.5) gm/dL Hct (39.0-53.0) % Neutrophils # (1.3-7.7) k/uL APTT (22.0-30.0) sec Sodium 135 L (137-145) mmol/L Potassium (3.5-5.1) mmol/L Glucose 122 H (74-99) mg/dL POC Glucose (mg/dL) 143 H 142 H (75-99) mg/dL Calcium 8.0 L (8.4-10.2) mg/dL 11/30/16 11/30/16 11/30/16 Range/Units 04:55 04:55 05:43 WBC 12.4 H (3.8-10.6) k/uL RBC 2.66 L (4.30-5.90) m/uL Hgb 8.7 L (13.0-17.5) gm/dL Hct 26.0 L (39.0-53.0) % Neutrophils # 8.4 H (1.3-7.7) k/uL APTT 81.0 H (22.0-30.0) sec Sodium (137-145) mmol/L Potassium (3.5-5.1) mmol/L Glucose (74-99) mg/dL POC Glucose (mg/dL) 124 H (75-99) mg/dL Calcium (8.4-10.2) mg/dL 11/30/16 11/30/16 11/30/16 Range/Units 08:02 10:13 11:48 WBC (3.8-10.6) k/uL RBC (4.30-5.90) m/uL Hgb (13.0-17.5) gm/dL Hct (39.0-53.0) % Neutrophils # (1.3-7.7) k/uL APTT (22.0-30.0) sec Sodium (137-145) mmol/L Potassium (3.5-5.1) mmol/L Glucose (74-99) mg/dL POC Glucose (mg/dL) 151 H 178 H 142 H (75-99) mg/dL Calcium (8.4-10.2) mg/dL 11/30/16 Range/Units 12:02 WBC (3.8-10.6) k/uL RBC (4.30-5.90) m/uL Hgb (13.0-17.5) gm/dL Hct (39.0-53.0) % Neutrophils # (1.3-7.7) k/uL APTT 78.3 H (22.0-30.0) sec Sodium (137-145) mmol/L Potassium (3.5-5.1) mmol/L Glucose (74-99) mg/dL POC Glucose (mg/dL) (75-99) mg/dL Calcium (8.4-10.2) mg/dL Microbiology - Last 24 Hours (Table) 11/10/16 16:40 Acid Fast Bacilli Smear - Final Lung - Right Acid Fast Bacilli Culture - Preliminary Assessment and Plan Plan: 1 Coronary artery disease status post cardiac bypass surgery and the patient is postop day # 20 2 prolonged postoperative ventilator-dependent history failure, multifactorial. Patient has extubated. Nevertheless, the active ongoing problems for now is his neuromuscular weakness and ongoing ileus. Patient has a combination of large bowel ileus as evident on the flat film the abdomen. NG tube still in place. 3 recurrent mucous plugs with excessive respiratory secretions requiring bronchoscopy and a peak airway suctioning and a bronchoscopy cultures came back negative for any microbial growth. The most recent sputum analysis showing Moraxella catarrhalis and the patient is currently on Levaquin. Chest x-ray from today is showing atelectatic changes in lung bases bilaterally. Nevertheless the patient is oxygenating well and there is no respiratory distress at this point. 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 Despite this, the patient is having a nontoxic abdomen. No abdominal tenderness. No leukocytosis. No fever. No acidosis. NG tube is in place and the patient is still nothing by mouth. 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 Doubt infection Recommendation: We'll initiate tube feeding via nasogastric tube slowly, patient apparently failed his swallow evaluation, may need eventually a Dobbhoff tube or a PEG tube placement. Continue to monitor in the ICU. Time with Patient: Less than 30
[2016-11-30 14:04] LABS: Glucose,Whole Blood 136 mg/dL (75-99)
[2016-11-30 16:15] LABS: Glucose,Whole Blood 130 mg/dL (75-99)
[2016-11-30] MEDS: FAT EMULSION 20% 250 ML in EMPTY BAG 1 BAG IV SCH (16:18)
[2016-11-30] MEDS: LEVOFLOXACIN 750MG-D5W PMX 750 MG in DEXTROSE/WATER 1 150ML.BAG IVPB SCH (16:18)
--- NOTE | 2016-11-30 16:34 | P.PN ---
Subjective Patient is evaluated at bedside. Yesterday, orders were placed to discontinue nasogastric tube but patient failed swallow eval and decision was made to keep him nothing by mouth. Today, patient has improved swallowing but speech therapist has recommended a modified barium swallow tomorrow with continued concern for aspiration. Patient denies nausea, vomiting, or abdominal pain. Patient had a small bowel movement today. Objective - Vital Signs Vital signs: Vital Signs Temp 99.3 F 11/30/16 16:00 Pulse 72 11/30/16 16:23 Resp 18 11/30/16 16:00 BP 168/83 11/30/16 16:00 Pulse Ox 97 11/30/16 16:00 Intake & Output 11/29/16 11/30/16 11/30/16 18:59 06:59 18:59 Intake Total 1882.270 7005.855 1618.035 Output Total 1735 2555 1850 Balance -22.375 739.855 -231.965 Weight 99.4 kg 97 kg Intake: IV 240 420 200 .9 NaCL 240 420 200 Intake, IV Titration 5351.819 7715.855 1298.035 Amount Amino Acid 5%-D25w+Lytes* 75 1600 E* 1,000 ml @ 75 mls/hr IV .BY DURATION [facility] Rx#: [id number] Heparin Sodium,Porcine/ 721.112 277.688 D5w Pmx 25,000 unit In Dextrose/Water 1 500ml. bag @ 10 UNITS/KG/HR 19. 98 mls/hr IV .Q24H [facility] Rx #:[id number] Insulin Regular 100 unit 86.625 73.743 70.347 In Sodium Chloride 0.9% 100 ml @ Per Protocol IV .Q0M [facility] Rx#:[id number] Magnesium Sulfate-D5w Pmx 300 75 1 gm In Dextrose/Water 1 100ml.bag @ 100 mls/hr IVPB Q1H [facility] Rx#: [id number] Magnesium Sulfate-D5w Pmx 200 1 gm In Dextrose/Water 1 100ml.bag @ 100 mls/hr IVPB Q1H [facility] Rx#: [id number] Mvi, Adult No.4 with Vit 1011 K 10 ml Trace (Conc-1Ml/ Dose) 1 ml In Amino Acid 5%-D25w+Lytes*E* 1,000 ml @ 75 mls/hr IV .BY DURATION [facility] Rx#: [id number] Mvi, Adult No.4 with Vit 300 675 K 10 ml Trace (Conc-1Ml/ Dose) 1 ml Sodium Acetate 30 meq Potassium Chloride 20 meq Calcium Gluconate 1,000 mg In Amino Acid 5%-D25w 1,000 ml @ 75 mls/hr IV . [id number] [facility] Rx#:[id number] Tube Feeding 30 Other 180 90 Output: Gastric Drainage 500 Urine 1735 2055 1850 Other: Voiding Method Indwelling Catheter Indwelling Catheter Indwelling Catheter # Bowel Movements 1 ABP, PAP, CO, CI - Last Documented Arterial Blood Pressure 172/58 Pulmonary Artery Pressure 46/23 Cardiac Output 6.8 Cardiac Index 3.3 - Exam GENERAL: Pt awake and alert, and in no acute distress. ENT: Nasogastric tube in place currently clamped. LUNGS: Breath sounds diminished to auscultation bilaterally. No wheezes, rales , or rhonchi. HEART: Heart S1, S2, no S3 or S4. Regular rate and rhythm. No murmurs, rubs or gallops. ABDOMEN: Soft, nontender, distended, hypoactive bowel sounds. No guarding, no rebound. - Labs CBC & Chem 7: 11/30/16 04:55 11/30/16 12:02 Labs: Abnormal Lab Results - Last 24 Hours (Table) 11/29/16 11/29/16 11/29/16 Range/Units 16:26 18:13 19:45 WBC (3.8-10.6) k/uL RBC (4.30-5.90) m/uL Hgb (13.0-17.5) gm/dL Hct (39.0-53.0) % Neutrophils # (1.3-7.7) k/uL APTT (22.0-30.0) sec Sodium (137-145) mmol/L Potassium (3.5-5.1) mmol/L Glucose (74-99) mg/dL POC Glucose (mg/dL) 137 H 164 H 141 H (75-99) mg/dL Calcium (8.4-10.2) mg/dL 11/29/16 11/29/16 11/30/16 Range/Units 21:15 22:02 00:01 WBC (3.8-10.6) k/uL RBC (4.30-5.90) m/uL Hgb (13.0-17.5) gm/dL Hct (39.0-53.0) % Neutrophils # (1.3-7.7) k/uL APTT (22.0-30.0) sec Sodium (137-145) mmol/L Potassium 3.4 L (3.5-5.1) mmol/L Glucose (74-99) mg/dL POC Glucose (mg/dL) 126 H 127 H (75-99) mg/dL Calcium (8.4-10.2) mg/dL 11/30/16 11/30/16 11/30/16 Range/Units 02:04 04:25 04:55 WBC (3.8-10.6) k/uL RBC (4.30-5.90) m/uL Hgb (13.0-17.5) gm/dL Hct (39.0-53.0) % Neutrophils # (1.3-7.7) k/uL APTT (22.0-30.0) sec Sodium 135 L (137-145) mmol/L Potassium (3.5-5.1) mmol/L Glucose 122 H (74-99) mg/dL POC Glucose (mg/dL) 143 H 142 H (75-99) mg/dL Calcium 8.0 L (8.4-10.2) mg/dL 11/30/16 11/30/16 11/30/16 Range/Units 04:55 04:55 05:43 WBC 12.4 H (3.8-10.6) k/uL RBC 2.66 L (4.30-5.90) m/uL Hgb 8.7 L (13.0-17.5) gm/dL Hct 26.0 L (39.0-53.0) % Neutrophils # 8.4 H (1.3-7.7) k/uL APTT 81.0 H (22.0-30.0) sec Sodium (137-145) mmol/L Potassium (3.5-5.1) mmol/L Glucose (74-99) mg/dL POC Glucose (mg/dL) 124 H (75-99) mg/dL Calcium (8.4-10.2) mg/dL 0511/30/16 11/30/16 Range/Units 08:02 10:13 11:48 WBC (3.8-10.6) k/uL RBC (4.30-5.90) m/uL Hgb (13.0-17.5) gm/dL Hct (39.0-53.0) % Neutrophils # (1.3-7.7) k/uL APTT (22.0-30.0) sec Sodium (137-145) mmol/L Potassium (3.5-5.1) mmol/L Glucose (74-99) mg/dL POC Glucose (mg/dL) 151 H 178 H 142 H (75-99) mg/dL Calcium (8.4-10.2) mg/dL 11/30/16 11/30/16 11/30/16 Range/Units 12:02 14:02 16:12 WBC (3.8-10.6) k/uL RBC (4.30-5.90) m/uL Hgb (13.0-17.5) gm/dL Hct (39.0-53.0) % Neutrophils # (1.3-7.7) k/uL APTT 78.3 H (22.0-30.0) sec Sodium (137-145) mmol/L Potassium (3.5-5.1) mmol/L Glucose (74-99) mg/dL POC Glucose (mg/dL) 136 H 130 H (75-99) mg/dL Calcium (8.4-10.2) mg/dL Microbiology - Last 24 Hours (Table) 11/10/16 16:40 Acid Fast Bacilli Smear - Final Lung - Right Acid Fast Bacilli Culture - Preliminary Assessment and Plan Plan: Impression: 1. Dysphagia. 2. Ileus, improving. Plan: Patient is scheduled for moderate barium swallow study tomorrow. From a surgical standpoint, patient may be fed through the NG tube. Continue to follow with primary and consultants. The above impression and plan have been discussed and directed by Dr. Rosas. Vernell CRAFT acting as scribe for Dr. Rosas.
[2016-11-30 18:04] LABS: Glucose,Whole Blood 165 mg/dL (75-99)
[2016-11-30 19:52] LABS: Glucose,Whole Blood 149 mg/dL (75-99)
[2016-11-30] MEDS: SENNOSIDES-DOCUSATE SODIUM 1 EACH TAB PO SCH (21:04)
[2016-11-30 21:52] LABS: Glucose,Whole Blood 141 mg/dL (75-99)
--- NOTE | 2016-11-30 23:00 | PN ---
HOSPITAL COURSE/SUBJECTIVE DATA: This is a 61-year-old gentleman who is postoperative day 20 from CABG. Patient had a prolonged course on the ventilator, was extubated on day 14. Patient thereafter was slightly improved; however, his course was complicated with abdominal distention secondary to an ileus. Today patient was seen at bedside. Continues to have NG tube. Appears to be having bowel movements. Patient apparently was started on ( ) tube feeding. Patient has been maintained on TPN at this time. Patient states he has a cough with sputum production. No other abnormalities were reported. PHYSICAL EXAM: VITALS: Temperature 98.3, heart rate 64, respiratory rate 15, blood pressure 119/64. Saturating 95% on supplemental oxygen. GENERAL APPEARANCE: Appears to be answering questions appropriately. LUNGS: Diminished breath sounds. Diffuse wheezing is appreciated. No rhonchi or crackles. ABDOMEN: Distended. Bowel sounds are hypoactive. No organomegaly appreciated. LOWER EXTREMITIES: Trace edema appreciated. NEUROLOGIC: No focal motor or sensory deficits noted. EXTREMITIES: There is 1+ edema in the upper extremities as well. LABORATORY DATA: Hemoglobin 8.7, hematocrit 26, white count 12.4, platelets 326. ASSESSMENT AND PLAN: 1. Coronary artery disease, status post coronary artery bypass graft, postoperative day 20. 2. Acute hypoxic respiratory failure with prolonged ventilator dependence thereafter. 3. Acute tracheobronchitis with Moraxella catarrhalis. 4. Critical care polyneuropathy. 5. Hypertension. 6. Paroxysmal atrial fibrillation. 7. Dyslipidemia. 8. Ileus, likely a complication of prolonged ICU support with sedation. 9. Postoperative anemia as expected. 10. Delirium, improved. 11. Gout. 12. Diabetes mellitus, currently on insulin drip. PLAN: Continue insulin drip at this time. Patient's diet has been titrated and tapered off from TPN to possibly oral to NG tube feeding. Patient is to have another swallow study. If patient fails it, potential for either a Dobhoff tube placement for long-term feeding or even a PEG is to be considered. Rest of the management per Cardiothoracic Surgery and ICU.
[2016-12-01 00:36] LABS: Glucose,Whole Blood 130 mg/dL (75-99)
[2016-12-01] MEDS: METOCLOPRAMIDE 5 MG/ML 2 ML VIAL IVP SCH ×4 (00:36→17:26)
[2016-12-01 02:21] LABS: Glucose,Whole Blood 130 mg/dL (75-99)
[2016-12-01 04:22] LABS: Glucose,Whole Blood 115 mg/dL (75-99)
[2016-12-01 05:42] LABS: Basophils % (A) 0 %; CH 32.3; CHCM 33.9; Eosinophils # (A) 0.5 k/uL (0-0.7); Eosinophils % (A) 4 %; HCT 27.9 % (39.0-53.0); HDW 3.18; HGB 9.5 gm/dL (13.0-17.5); Luc # (Auto) 0.36; Luc % (Auto) 3; Lymphocytes # (A) 2.3 k/uL (1.0-4.8); Lymphocytes % (A) 18 %; MCH 32.7 pg (25.0-35.0); MCHC 34.1 g/dL (31.0-37.0); MCV 95.9 fL (80.0-100.0); Mean Platelet Volume 7.1; Monocytes # (A) 0.6 k/uL (0-1.0); Monocytes % (A) 5 %; Neutrophils # (A) 8.8 k/uL (1.3-7.7); Neutrophils % (A) 70 %; RBC 2.91 m/uL (4.30-5.90); RDW 14.9 % (11.5-15.5); WBC 12.6 k/uL (3.8-10.6); WBC (Perox) 12.18
[2016-12-01 06:08] LABS: Glucose,Whole Blood 101 mg/dL (75-99)
[2016-12-01] MEDS: HEPARIN SODIUM,PORCINE/D5W PMX 25,000 UNIT in DEXTROSE/WATER 1 500ML.BAG IV SCH ×2 (06:46→22:58)
[2016-12-01] MEDS: 1: MVI, ADULT NO.4 WITH VIT K 10 ML, TRACE (CONC-1ML/DOSE) 1 ML in AMINO ACID 5%-D25W+LY IV SCH ×9 (06:49→15:23)
[2016-12-01 06:57] LABS: Ionized Calcium 4.9 mg/dL (4.5-5.3)
[2016-12-01 06:58] LABS: Glucose,Whole Blood 112 mg/dL (75-99)
[2016-12-01 07:12] LABS: Anion Gap 7 mmol/L; Blood Urea Nitrogen 14 mg/dL (9-20); Calcium 8.4 mg/dL (8.4-10.2); Carbon Dioxide 28 mmol/L (22-30); Chloride 99 mmol/L (98-107); Glucose 97 mg/dL (74-99); Magnesium 1.9 mg/dL (1.6-2.3); Non-African American GFR(MDRD) >60 (>60 ml/min/1.73 sqM); Phosphorous 3.9 mg/dL (2.5-4.5); Potassium 3.9 mmol/L (3.5-5.1); Sodium 134 mmol/L (137-145)
--- NOTE | 2016-12-01 07:21 | XR ---
EXAMINATION TYPE: XR chest 1V portable DATE OF EXAM: 12/01/2016 6:25 AM COMPARISON: 11/30/2016 HISTORY: SOB, Follow Up FINDINGS: Indwelling tubes and catheters are unchanged. No change in bibasilar opacities. Improved pulmonary venous congestion. Stable appearance of the cardio-mediastinal structures at this time. Pleural effusion unchanged. IMPRESSION: 1. Improved pulmonary venous congestion with persistent basilar atelectasis or infiltrates. Clinical correlation and follow up until resolution is recommended.
[2016-12-01] MEDS: IPRATROPIUM-ALBUTEROL 3 ML NEB INHALATION SCH ×4 (07:56→20:02)
[2016-12-01] MEDS: BUDESONIDE 1 MG/2 ML NEBU INHALATION SCH ×2 (07:56→20:02)
[2016-12-01 08:29] LABS: Glucose,Whole Blood 189 mg/dL (75-99)
[2016-12-01] MEDS: INSULIN REGULAR 100 UNIT in SODIUM CHLORIDE 0.9% 100 ML IV SCH ×2 (08:36→22:59)
[2016-12-01] MEDS: MAGNESIUM SULFATE-D5W PMX 1 GM in DEXTROSE/WATER 1 100ML.BAG IVPB SCH ×2 (08:36→09:59)
[2016-12-01] MEDS: ASPIRIN 325 MG TAB PO SCH (08:50)
[2016-12-01] MEDS: AMIODARONE 200 MG TAB PO SCH (08:50)
[2016-12-01] MEDS: ATORVASTATIN 40 MG TAB PO SCH (08:50)
[2016-12-01] MEDS: DIGOXIN 250 MCG TAB OG-TUBE SCH (08:50)
[2016-12-01] MEDS: PANTOPRAZOLE 40 MG/10 ML VIAL IVP SCH (08:51)
[2016-12-01] MEDS: METOPROLOL TARTRATE 50 MG TAB PO SCH ×2 (08:51→21:41)
[2016-12-01] MEDS: LISINOPRIL 10 MG TAB PO SCH ×2 (08:51→21:41)
[2016-12-01] MEDS: FUROSEMIDE 10 MG/ML 2 ML VIAL IV SCH ×2 (08:51→21:41)
[2016-12-01] MEDS: THIAMINE 100 MG TAB PO SCH ×2 (08:52→21:41)
--- NOTE | 2016-12-01 08:53 | P.PN ---
Subjective Principal diagnosis: Coronary artery disease, status post prior stenting to his right coronary artery. Preserved left ventricular function. Hyperlipidemia. Hypertension. ETOH abuse. POD #21 total arterial non-aortic patch off-pump double coronary artery bypass grafting using in situ skeletonized right internal mammary artery to the left anterior descending artery across the anterior midline in situ totally skeletonized left internal mammary artery to the first obtuse marginal artery. Intraoperative transesophageal echocardiogram and epi-aortic scanning. Intraoperative graft flow measurements using the [employer]ist[employer] system POD #21 flexible bronchoscopy with bronchial washings secondary to postoperative mucous plugging with increasing oxygen demand the night of surgery. Pt had acute hypoxic post operative respiratory failure as an unexpected post-surgical condition, related to the patient's underlying medical comorbidities. Sputum culture grew out Moraxella, blood cultures are negative to date, urine culture grew Klebsiella. Patient placed on Levaquin per pulmonology. Pt developed postoperative alcohol withdrawal requiring increased sedation and prolonged mechanical ventilation. Patient developed postoperative ileus, an unexpected post-surgical condition, currently resolving. Currently receiving TPN and tube feeding for nutrition. General surgery and consult, no intervention at this time. Will have modified barium swallow today, if he passes will start oral diet and discontinue TPN and tube feeding. Patient currently sitting up in bed in no apparent distress. No new questions or concerns Objective - Vital Signs Vital signs: Vital Signs Temp 99.6 F 12/01/16 04:00 Pulse 76 12/01/16 07:56 Resp 19 12/01/16 07:00 BP 101/63 12/01/16 07:00 Pulse Ox 95 12/01/16 07:56 Intake & Output 11/30/16 12/01/16 12/01/16 18:59 06:59 18:59 Intake Total 3069.365 2313.853 90 Output Total 1970 1875 90 Balance 1099.365 438.853 0 Weight 97.1 kg Intake: IV 240 240 20 .9 NaCL 240 240 20 Intake, IV Titration 2689.365 1593.853 40 Amount Fat Emulsion 20% 250 ml 42 189 In Empty Bag 1 bag @ 21 mls/hr IV MoWeFr [facility] Rx#: [id number] Heparin Sodium,Porcine/ 277.688 500 D5w Pmx 25,000 unit In Dextrose/Water 1 500ml. bag @ 10 UNITS/KG/HR 19. 98 mls/hr IV .Q24H [facility] Rx #:[id number] Insulin Regular 100 unit 108.677 109.853 In Sodium Chloride 0.9% 100 ml @ Per Protocol IV .Q0M [facility] Rx#:[id number] Levofloxacin 750Mg-D5w 150 Pmx 750 mg In Dextrose/ Water 1 150ml.bag @ 100 mls/hr IVPB Q24H [facility] Rx#: [id number] Magnesium Sulfate-D5w Pmx 75 1 gm In Dextrose/Water 1 100ml.bag @ 100 mls/hr IVPB Q1H [facility] Rx#: [id number] Magnesium Sulfate-D5w Pmx 200 1 gm In Dextrose/Water 1 100ml.bag @ 100 mls/hr IVPB Q1H [facility] Rx#: [id number] Mvi, Adult No.4 with Vit 1011 K 10 ml Trace (Conc-1Ml/ Dose) 1 ml In Amino Acid 5%-D25w+Lytes*E* 1,000 ml @ 75 mls/hr IV .BY DURATION [facility] Rx#: [id number] Mvi, Adult No.4 with Vit 825 795 40 K 10 ml Trace (Conc-1Ml/ Dose) 1 ml Sodium Acetate 30 meq Potassium Chloride 20 meq Calcium Gluconate 1,000 mg In Amino Acid 5%-D25w 1,000 ml @ 75 mls/hr IV . [id number] [facility] Rx#:[id number] Tube Feeding 50 330 30 Other 90 150 Output: Urine 1970 1875 90 Other: Voiding Method Indwelling Catheter Indwelling Catheter # Bowel Movements 1 ABP, PAP, CO, CI - Last Documented Arterial Blood Pressure 172/58 Pulmonary Artery Pressure 46/23 Cardiac Output 6.8 Cardiac Index 3.3 - Constitutional General appearance: Present: cooperative, no acute distress, obese - Respiratory Details: Lungs sounds diminished bilaterally with coarse breath sounds in the bases. Respirations even, nonlabored. Currently on 2 L nasal cannula with oxygen saturation 95%. Able to achieve 750 mL on his incentive spirometry. Effective cough - Cardiovascular Details: S1, S2 present. Regular rate and rhythm, normal sinus rhythm on telemetry. Superior sternum stable, inferior sternum movable. Heart hugger in place with patient unable to demonstrate appropriate use. Teds/STDs present. - Gastrointestinal Gastrointestinal Comment(s): Abdomen soft, nontender, slightly distended. Active bowel sounds 4 quadrants. Currently receiving tube feeding Glucerna at 30 mL/h via NG tube, TPN at 40 mL /h per dietitian recommendation. Patient had 2 bowel movements yesterday. - Genitourinary Genitourinary Comment(s): Tay present draining clear, yellow urine. Urine output 30-370 mL/h overnight. - Integumentary Integumentary Comment(s): Anterior chest incision covered with dry intact dressing. - Neurologic Neurologic Comment(s): Pupils equal, round, reactive to light and accommodation, 4 mm bilaterally. - Musculoskeletal Musculoskeletal: Present: generalized weakness - Psychiatric Psychiatric: Present: A&O x's 3, appropriate affect, intact judgment & insight - Allied health notes Allied health notes reviewed: nursing - Labs CBC & Chem 7: 12/01/16 04:59 12/01/16 04:59 Labs: Abnormal Lab Results - Last 24 Hours (Table) 11/30/16 11/30/16 11/30/16 Range/Units 10:13 11:48 12:02 WBC (3.8-10.6) k/uL RBC (4.30-5.90) m/uL Hgb (13.0-17.5) gm/dL Hct (39.0-53.0) % Neutrophils # (1.3-7.7) k/uL APTT 78.3 H (22.0-30.0) sec Sodium (137-145) mmol/L POC Glucose (mg/dL) 178 H 142 H (75-99) mg/dL 11/30/16 11/30/16 11/30/16 Range/Units 14:02 16:12 18:02 WBC (3.8-10.6) k/uL RBC (4.30-5.90) m/uL Hgb (13.0-17.5) gm/dL Hct (39.0-53.0) % Neutrophils # (1.3-7.7) k/uL APTT (22.0-30.0) sec Sodium (137-145) mmol/L POC Glucose (mg/dL) 136 H 130 H 165 H (75-99) mg/dL 11/30/16 11/30/16 11/30/16 Range/Units 19:01 19:50 21:50 WBC (3.8-10.6) k/uL RBC (4.30-5.90) m/uL Hgb (13.0-17.5) gm/dL Hct (39.0-53.0) % Neutrophils # (1.3-7.7) k/uL APTT 60.6 H (22.0-30.0) sec Sodium (137-145) mmol/L POC Glucose (mg/dL) 149 H 141 H (75-99) mg/dL 12/01/16 12/01/16 12/01/16 Range/Units 00:31 02:19 04:20 WBC (3.8-10.6) k/uL RBC (4.30-5.90) m/uL Hgb (13.0-17.5) gm/dL Hct (39.0-53.0) % Neutrophils # (1.3-7.7) k/uL APTT (22.0-30.0) sec Sodium (137-145) mmol/L POC Glucose (mg/dL) 130 H 130 H 115 H (75-99) mg/dL 12/01/16 12/01/16 12/01/16 Range/Units 04:59 04:59 04:59 WBC 12.6 H (3.8-10.6) k/uL RBC 2.91 L (4.30-5.90) m/uL Hgb 9.5 L (13.0-17.5) gm/dL Hct 27.9 L (39.0-53.0) % Neutrophils # 8.8 H (1.3-7.7) k/uL APTT 55.1 H (22.0-30.0) sec Sodium 134 L (137-145) mmol/L POC Glucose (mg/dL) (75-99) mg/dL 12/01/16 12/01/16 Range/Units 06:06 06:56 WBC (3.8-10.6) k/uL RBC (4.30-5.90) m/uL Hgb (13.0-17.5) gm/dL Hct (39.0-53.0) % Neutrophils # (1.3-7.7) k/uL APTT (22.0-30.0) sec Sodium (137-145) mmol/L POC Glucose (mg/dL) 101 H 112 H (75-99) mg/dL - Imaging and Cardiology Chest x-ray: report reviewed, image reviewed Assessment and Plan (1) Status post coronary artery bypass graft Status: Acute (2) Coronary artery disease Status: Acute (3) Family history of heart disease Status: Acute (4) History of PTCA Status: Acute (5) Hyperlipidemia Status: Acute (6) Hypertension Status: Acute (7) Nicotine dependence, chewing tobacco, uncomplicated Status: Acute Plan: 1. Continue ASA, Lipitor, heparin, Lopressor, lisinopril, digoxin, Lasix. 2. Continue amiodarone for atrial fibrillation prophylaxis, decreased to 200 mg daily yesterday. 3. Wean O2 as tolerated. 4. NG tube okay to be removed once able to tolerate oral intake. Modified barium swallow scheduled for this morning. 5. Continue TPN for until patient able to tolerate oral intake. 6. Insulin/diabetic management per primary care service. 7. Continue antibiotics per pulmonology. 8. Increase activity, out of bed to chair. Physical therapy following. 9. Daily labs, chest x-rays. 10. GI/DVT prophylaxis. 11. Potassium, magnesium replacement per protocol. 12. Will begin Zoloft 50 mg daily. 13. Transfer [facility] soon. 14. Discharge planning in process. Patient will need rehabilitation upon discharge. Time with Patient: Greater than 30
[2016-12-01] MEDS ORDERED: POTASSIUM CHLORIDE ORAL LIQUID 40 MEQ/30 ML CUP NG-TUBE SCH (09:00)
[2016-12-01 09:11] LABS: Glucose,Whole Blood 175 mg/dL (75-99)
[2016-12-01] MEDS: SERTRALINE 50 MG TAB PO SCH (09:59)
[2016-12-01 10:06] LABS: Glucose,Whole Blood 167 mg/dL (75-99)
[2016-12-01 11:07] LABS: Glucose,Whole Blood 150 mg/dL (75-99)
[2016-12-01 12:39] LABS: Glucose,Whole Blood 102 mg/dL (75-99)
--- NOTE | 2016-12-01 13:00 | FL ---
Modified barium swallow HISTORY: Extended mechanical ventilation Patient was given barium mixed with solids and liquids and evaluated in the lateral projection under real-time fluoroscopy. There is no evident aspiration or laryngeal penetration. Swallowing mechanism is normal. 2 minutes 1 second fluoroscopy time supplied IMPRESSION: See dictated report speech pathology
[2016-12-01 13:31] LABS: Glucose,Whole Blood 117 mg/dL (75-99)
--- NOTE | 2016-12-01 13:53 | P.PN ---
Subjective Principal diagnosis: Status post CABG, postoperative day # 21 61-year-old male patient with status post carotid bypass surgery and the patient is postop day #11. The patient has failed to wean off the mechanical ventilator. Immediately postop the patient had pulmonate complications including mucous plugs and atelectasis of the left lung. He required bronchoscopy and therapeutic airway suctioning and all of the respiratory cultures came back negative. This morning, the patient was on a volume cycled assist-control mode of ventilation at the rate of 20, tidal volume 450, FiO2 of 40% and a PEEP of 5. I reviewed the blood gases and I reviewed also the chest x -ray. I noted that the patient was unable to tolerate assist-control mode. Attempts to wean him off the sedation Emily as the patient was becoming restless and a successful the mechanical ventilator. Based on this, I switched this patient to a pressure support mode of ventilation and I was able to completely wean him off sedation. He was wide awake all he was hardly able to wiggle his toes or move his fingers and he was unable to raise his had or arms against gravity. He was having copious amount of rest or secretions and he was requiring frequent suctioning. At a later stage, switch this patient to a pressure control mode of ventilation with a PEEP of 7 and a pressure control of 20 and his FiO2 was At 60%. He remains hemodynamically stable. He is producing adequate amount of urine output. No pressors at this point. No fever. No chills. Chest tubes have been all removed. He is tolerating tube feeds. Atelectatic discussion with the cardiothoracic surgeon and will plan to proceed with a PEG and trach if the patient ultimately failed weaning. 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 On 11/22/2016 the patient remains intubated on a mechanical ventilator. I was able to the sedation completely on the patient. He is awake at this point and he had been awake throughout the night. He is following simple commands. Motor functions are nearly absent. The patient is extremely weak. He can wiggle his toes and occasionally bend his knees. Otherwise he cannot raise his arms and legs against gravity. He has a cough reflex. He can blink his eyes and raises eyebrows. Reflexes are significantly diminished in the upper and lower extremities bilaterally. Is on a pressure control mode of ventilation at the rate of 18, PC 18, PEEP of 7 and FiO2 of 50%. Still having significant respiratory secretions through the orotracheal tube. The chest x-ray from today shows moderate parenchymal opacity within the left lung base and the right lung base. There is some atelectatic changes in the lung bases more so on the left. The patient has also postop changes related to coronary artery bypass surgery. No fever. No chills. Hemodynamically stable. Producing adequate amount of urine output and the patient was diuresis with a combination of albumin and Lasix. He is on tube feeds. On 11/23/2016 the patient remains on a mechanical ventilator. Seems to be much more awake compared to yesterday. Motor functions remain weak over the patient is doing more activity and movement on today's evaluation. We were able to bring the patient is sitting up position for a total of 2 hours today. He tolerated well and following that he had a coughing spells and he had to be placed in bed. He remains in the same vent setting with a pressure control of 18, PEEP of 7, FiO2 of 50% and rate of 18. Chest x-ray shows adequate expansion of the left lung with a few being in good location. Sputum analysis showed Moraxella catarrhalis and the based on that the patient was started on Levaquin. Note that he had also Klebsiella PNEUMONIA IN HIS URINE, AND BOTH OF THESE MICROORGANISMS SHOULD RESPOND TO LEVAQUIN. Meanwhile, the patient is receiving enteral feeding for nutritional support. IV Solu Medrol is been discontinued. We'll doing daily physical therapy and passive range of motion. He remains on IV heparin. He remains on IV insulin for blood sugar control. Morning blood gases showed a pH of 7.51 with a pCO2 of 26 and pO2 of 79. Weaning parameters are still poor as the patient has rapid shallow breathing index around 120 and the patient becomes tachypneic and the LOW tidal volumes. On 11/24/2016 the patient is being seen in follow-up. Earlier this morning the patient was still mechanical ventilator on a pressure control mode. Chest x- ray from earlier this morning showed no significant abnormalities. There was improvement in aeration in lung bases bilaterally especially on the left. NG tube was still in a good location below the diaphragm. Meanwhile affect abdominal film was done this morning and that showed a component of ileus. Note that overnight, the patient's tube feeds were discontinued knowing that he had 2 bouts of emesis. Nevertheless, despite ongoing gastrointestinal abnormalities, the patient is doing very well while being on mechanical ventilator and is awake and alert. We checked his weaning parameters this morning and the numbers looked very well. He was given a pressure support of 5 and PEEP of 5 and a breathing trial for a total of 30 minutes and following that we made a decision to extubate this patient. This was a difficult decision to make knowing that the patient had an underlying abdominal ileus and he is still having significant motor weakness in the upper and lower extremities. Nevertheless, I noted that his motor function is improved his cough improved and he had very decent weaning parameters. I suspected that this will be his last chance of being extubated and if not successful, he will need a PEG and trach with the next 24 hours. Based on this, I extubated this patient. He remains on IV heparin. He remains on IV insulin. He is also on Levaquin. He is afebrile. He is awake and following commands. Motor function is gradually improving. No other new complaints otherwise for now. Noted post extubation, the patient was placed on 5 L of oxygen nasal cannula with saturation of 94-95%He continued to bleed comfortably. He was placed in sitting up position in ICU. 11/25/2016, the patient is being seen in follow-up in the intensive care unit. The patient has been extubated and has been off the mechanical ventilator for the past 24 hours. He is breathing comfortably. No significant rest or distress. NG tube is in place. There is considerable amount of output from the NG tube still in the abdomen is distended although less compared to yesterday. He had colonic ileus and some dilatation of the small bowel. A rectal tube was inserted and abdomen was quite deflated. He is producing some loose liquidy bowel movements yesterday and small amounts. Rectal examination was done and the patient does not have any impacted stool. No abdominal pain. No fever. No chills. He is in sinus rhythm for the time being and stable hemodynamics. Is producing adequate amount of urine output. All of the surgical wound sites are clean and intact. Neurologically is awake. There has been obvious improvement in the motor function and the patient is talking and communicating at this point. He remains on IV heparin. He remains on IV insulin for blood sugar control. White cell count is at 15.1. Hemoglobin is stable at 8.7. On 11/26/2016, the patient is being seen in follow-up. The patient is awake. Following commands and communicating. As mentioned earlier, profoundly weak although that has been steady and slow improvement in his motor function. NG tube in place. Abdomen remains distended. Flexeril of the abdomen shows ileus both large and small bowel. No bowel functional mobility at all over the past 12 hours. The patient is on Reglan. From the pulmonary standpoint, he is calm and comfortable. No labored breathing. Actually taking well on 3 L of oxygen by nasal cannula. The chest exit from today shows stable at ectatic changes small effusion the lung bases bilaterally. NG tube in place. Output is minimal at this point. Abdomen is tender get is soft and nontender. Bowel sounds are very hypoactive. Repeat abdominal films was reviewed and there is concern of ongoing large and small bowel ileus. He is on IV heparin. Remains on IV insulin for blood sugar control. Remains nothing by mouth for the time being. No leukocytosis. Cardiac rhythm is sinus. On 11/27/2016 I'm seeing this patient in follow-up. He is awake. He is communicating. NG tube is in place. Total amount of output from the NG tube is around 250 mL over the past 24 hours. Abdomen remains distended and tympanic and bowel sounds are hypoactive. CAT scan of the abdomen that was done showed a large bowel ileus. The patient is on Reglan. The patient was started on TPN for nutritional support. The CAT scan of the chest also showed some early dehiscence in the lower surgical incision with some surrounding swelling/hematoma. There is small better pleural effusion and atelectasis in the left lung base. No fever. No chills. Still on insulin drip. Still on a heparin drip. Right upper extremity is swollen and Artline catheter needs to be removed. On 11/28/2016, patient was seen on follow-up, continues to be about the same. Continues to have nasogastric tube in place, continues to have hypoactive bowel sounds and what seems to be an ileus. Patient remains on TPN for nutritional support, ultrasound of the right upper extremity showed no evidence of DVT. Chest x-ray showed cardiomegaly and small left pleural effusion. All labs were reviewed, PTT is therapeutic. Hemoglobin is 8.8 today. Basic metabolic profile is relatively normal. On 11/29/2016, patient seems to be a bit more active, and bit more verbal, and more responsive. Denies any shortness of breath, no cough no wheezing, no chest pain, no fever, no chills, no hemoptysis. Continues to have nasogastric tube in place, and his abdomen remains a bit distended. Remains on TPN, and I would like to have the swallow evaluation done by speech therapy hoping we could place the patient on oral diet. All his labs were reviewed. Electrolytes are normal PTT therapeutic CBC is normal hemoglobin is 8.6. Patient remains on physical therapy On 11/30/2016, patient seems to be doing relatively well, about the same compared to yesterday. The main issue at this point seems to be issue of feeding, patient failed his swallow evaluation, and we would start feeding at least at a slow pace using his nasogastric tube, patient may eventually need a Dobbhoff or he may need a PEG tube placement. CBC was reviewed, hemoglobin is 8.7. Electrolytes and renal profile are normal. WBC count is 12.4. Chest x-ray showed small bilateral pleural effusions. On 12/01/2016 patient continues to slowly and gradually improve, he seems to be tolerating tube feeding well, he may have a modified barium swallow today, and if he does well may even consider taking the nasogastric tube out, and start feeding the patient. In the meantime we have been able to cut down on his TPN, and 50% of his caloric requirement is given by enteral feeding, and 50% is by TPN at present. Again were hoping we could potentially remove the nasogastric tube today. In the meantime the patient has less abdominal discomfort, he had a few bowel movements, and his GI issues seems to be improving. Labs were reviewed he had a relatively normal CBC and relatively normal basic metabolic profile. Objective - Vital Signs Vital signs: Vital Signs Temp 98.1 F 12/01/16 08:00 Pulse 64 12/01/16 11:40 Resp 16 12/01/16 11:00 BP 105/58 12/01/16 11:00 Pulse Ox 96 12/01/16 11:00 Intake & Output 11/30/16 12/01/16 12/01/16 18:59 06:59 18:59 Intake Total 3069.365 2313.853 308.368 Output Total 1970 1875 880 Balance 1099.365 438.853 -571.632 Weight 97.1 kg Intake: IV 240 240 100 .9 NaCL 240 240 100 Intake, IV Titration 2689.365 1593.853 88.368 Amount Fat Emulsion 20% 250 ml 42 189 In Empty Bag 1 bag @ 21 mls/hr IV MoWeFr [facility] Rx#: [id number] Heparin Sodium,Porcine/ 277.688 500 D5w Pmx 25,000 unit In Dextrose/Water 1 500ml. bag @ 10 UNITS/KG/HR 19. 98 mls/hr IV .Q24H [facility] Rx #:[id number] Insulin Regular 100 unit 108.677 109.853 38.368 In Sodium Chloride 0.9% 100 ml @ Per Protocol IV .Q0M [facility] Rx#:[id number] Levofloxacin 750Mg-D5w 150 Pmx 750 mg In Dextrose/ Water 1 150ml.bag @ 100 mls/hr IVPB Q24H [facility] Rx#: [id number] Magnesium Sulfate-D5w Pmx 75 1 gm In Dextrose/Water 1 100ml.bag @ 100 mls/hr IVPB Q1H [facility] Rx#: [id number] Magnesium Sulfate-D5w Pmx 200 1 gm In Dextrose/Water 1 100ml.bag @ 100 mls/hr IVPB Q1H [facility] Rx#: [id number] Magnesium Sulfate-D5w Pmx 10 1 gm In Dextrose/Water 1 100ml.bag @ 100 mls/hr IVPB Q1H [facility] Rx#: [id number] Mvi, Adult No.4 with Vit 1011 K 10 ml Trace (Conc-1Ml/ Dose) 1 ml In Amino Acid 5%-D25w+Lytes*E* 1,000 ml @ 75 mls/hr IV .BY DURATION [facility] Rx#: [id number] Mvi, Adult No.4 with Vit 825 795 40 K 10 ml Trace (Conc-1Ml/ Dose) 1 ml Sodium Acetate 30 meq Potassium Chloride 20 meq Calcium Gluconate 1,000 mg In Amino Acid 5%-D25w 1,000 ml @ 75 mls/hr IV . [id number] [facility] Rx#:[id number] Tube Feeding 50 330 120 Other 90 150 Output: Urine 1969 Other: Voiding Method Indwelling Catheter Indwelling Catheter Indwelling Catheter # Bowel Movements 1 ABP, PAP, CO, CI - Last Documented Arterial Blood Pressure 172/58 Pulmonary Artery Pressure 46/23 Cardiac Output 6.8 Cardiac Index 3.3 - Exam Physical Exam: Revealed a 61-year-old white male, chronically ill, weak, but in no form of respiratory distress. HEENT:[Neck is supple.] [No neck masses.] [No thyromegaly.] [No JVD.] Nasogastric tube is noted to be in place. Chest: [Diminished breath sounds at the bases, no crackles, no rhonchi, no wheezes.] Cardiac Exam: [Normal S1 and S2, no S3 gallop, no murmur.] Abdomen: [Soft, nontender, no megaly, no rebound, no guarding, normal bowel sounds.] Extremities: [No clubbing, no edema, no cyanosis.] Neurological Exam: [No focal neurologic deficit.] However patient is noted to be generally weak. - Labs CBC & Chem 7: 12/01/16 04:59 12/01/16 04:59 Labs: Abnormal Lab Results - Last 24 Hours (Table) 11/30/16 11/30/16 11/30/16 Range/Units 14:02 16:12 18:02 WBC (3.8-10.6) k/uL RBC (4.30-5.90) m/uL Hgb (13.0-17.5) gm/dL Hct (39.0-53.0) % Neutrophils # (1.3-7.7) k/uL APTT (22.0-30.0) sec Sodium (137-145) mmol/L POC Glucose (mg/dL) 136 H 130 H 165 H (75-99) mg/dL 11/30/16 11/30/16 11/30/16 Range/Units 19:01 19:50 21:50 WBC (3.8-10.6) k/uL RBC (4.30-5.90) m/uL Hgb (13.0-17.5) gm/dL Hct (39.0-53.0) % Neutrophils # (1.3-7.7) k/uL APTT 60.6 H (22.0-30.0) sec Sodium (137-145) mmol/L POC Glucose (mg/dL) 149 H 141 H (75-99) mg/dL 12/01/16 12/01/16 12/01/16 Range/Units 00:31 02:19 04:20 WBC (3.8-10.6) k/uL RBC (4.30-5.90) m/uL Hgb (13.0-17.5) gm/dL Hct (39.0-53.0) % Neutrophils # (1.3-7.7) k/uL APTT (22.0-30.0) sec Sodium (137-145) mmol/L POC Glucose (mg/dL) 130 H 130 H 115 H (75-99) mg/dL 12/01/16 12/01/16 12/01/16 Range/Units 04:59 04:59 04:59 WBC 12.6 H (3.8-10.6) k/uL RBC 2.91 L (4.30-5.90) m/uL Hgb 9.5 L (13.0-17.5) gm/dL Hct 27.9 L (39.0-53.0) % Neutrophils # 8.8 H (1.3-7.7) k/uL APTT 55.1 H (22.0-30.0) sec Sodium 134 L (137-145) mmol/L POC Glucose (mg/dL) (75-99) mg/dL 12/01/16 12/01/16 12/01/16 Range/Units 06:06 06:56 08:16 WBC (3.8-10.6) k/uL RBC (4.30-5.90) m/uL Hgb (13.0-17.5) gm/dL Hct (39.0-53.0) % Neutrophils # (1.3-7.7) k/uL APTT (22.0-30.0) sec Sodium (137-145) mmol/L POC Glucose (mg/dL) 101 H 112 H 189 H (75-99) mg/dL 12/01/16 12/01/16 12/01/16 Range/Units 09:09 10:04 11:04 WBC (3.8-10.6) k/uL RBC (4.30-5.90) m/uL Hgb (13.0-17.5) gm/dL Hct (39.0-53.0) % Neutrophils # (1.3-7.7) k/uL APTT (22.0-30.0) sec Sodium (137-145) mmol/L POC Glucose (mg/dL) 175 H 167 H 150 H (75-99) mg/dL 12/01/16 12/01/16 Range/Units 12:35 13:29 WBC (3.8-10.6) k/uL RBC (4.30-5.90) m/uL Hgb (13.0-17.5) gm/dL Hct (39.0-53.0) % Neutrophils # (1.3-7.7) k/uL APTT (22.0-30.0) sec Sodium (137-145) mmol/L POC Glucose (mg/dL) 102 H 117 H (75-99) mg/dL Assessment and Plan Plan: 1 Coronary artery disease status post cardiac bypass surgery and the patient is postop day # 21 2 prolonged postoperative ventilator-dependent history failure, multifactorial. Patient has extubated. Nevertheless, the active ongoing problems for now is his neuromuscular weakness and ongoing ileus. Patient has a combination of large bowel ileus as evident on the flat film the abdomen. NG tube still in place. 3 recurrent mucous plugs with excessive respiratory secretions requiring bronchoscopy and a peak airway suctioning and a bronchoscopy cultures came back negative for any microbial growth. The most recent sputum analysis showing Moraxella catarrhalis and the patient is currently on Levaquin. Chest x-ray from today is showing atelectatic changes in lung bases bilaterally. Nevertheless the patient is oxygenating well and there is no respiratory distress at this point. 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 Despite this, the patient is having a nontoxic abdomen. No abdominal tenderness. No leukocytosis. No fever. No acidosis. NG tube is in place and the patient is still nothing by mouth. 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 Doubt infection Recommendation: Continue present supportive care measures, patient will have a modified barium swallow, and if tolerated may even consider taking the nasogastric tube out, feed the patient orally, and gradually discontinue TPN. In the meantime we will continue to work on possible transferring the patient to a rehab facility. Patient will likely require a long course of rehab considering his critical illness polyneuropathy and myopathy. Time with Patient: Less than 30
[2016-12-01 14:30] LABS: Glucose,Whole Blood 123 mg/dL (75-99)
[2016-12-01 15:10] LABS: Glucose,Whole Blood 121 mg/dL (75-99)
[2016-12-01 16:07] LABS: Glucose,Whole Blood 124 mg/dL (75-99)
[2016-12-01] MEDS: LEVOFLOXACIN 750MG-D5W PMX 750 MG in DEXTROSE/WATER 1 150ML.BAG IVPB SCH (17:27)
[2016-12-01 18:20] LABS: Glucose,Whole Blood 108 mg/dL (75-99)
[2016-12-01 19:07] LABS: Glucose,Whole Blood 122 mg/dL (75-99)
[2016-12-01 20:10] LABS: Glucose,Whole Blood 127 mg/dL (75-99)
[2016-12-01 21:27] LABS: Glucose,Whole Blood 115 mg/dL (75-99)
[2016-12-01] MEDS: SENNOSIDES-DOCUSATE SODIUM 1 EACH TAB PO SCH (21:42)
[2016-12-01 22:02] LABS: Glucose,Whole Blood 129 mg/dL (75-99)
--- NOTE | 2016-12-01 22:12 | PN ---
HOSPITAL COURSE/SUBJECTIVE DATA: This is a 61-year-old gentleman who underwent a CABG, postoperative day 21, had a complicated course, including a prolonged ventilator-dependent respiratory failure. Patient thereafter had an ileus. Over the course of the last 4 days, patient initially had an NG tube placed with decompression thereafter. Due to prolonged requirement for NG tube, the patient thereafter was started on TPN. Patient today underwent a swallow eval and was able to tolerate a modified diet without significant aspiration. Today patient is off oxygen, states to have a cough with minimal sputum production. Denies having any headaches, blurry vision, nausea, vomiting. Denies having any abdominal discomfort. The patient does state to have some pain in his left foot. No other abnormalities are reported by the nursing staff. PHYSICAL EXAM: VITALS: Temperature is 98.6, heart rate 65, respiratory rate 18, blood pressure 91/49. Saturating 92% on room air. GENERAL APPEARANCE: Alert, oriented x3. NECK: Supple. No JVD. LUNGS: Diminished breath sounds. Trace expiratory wheezing transmitted from the hypopharynx. HEART: Regular rate and rhythm. No murmurs appreciated. ABDOMEN: Distended. Tympanic to percussion. Bowel sounds are intact. LOWER EXTREMITIES: No significant edema appreciated. NEURO: Moves all 4 extremities. No focal motor or sensory deficits noted. Laboratory data, including the glucose levels, were reviewed. ASSESSMENT AND PLAN: 1. Coronary artery disease, status post coronary artery bypass graft postoperative day 21. 2. Acute hypoxic respiratory failure with a prolonged ventilator dependence due to the patient's comorbidities. 3. Acute tracheobronchitis with Moraxella catarrhalis. 4. Critical care polyneuropathy. 5. Hypertension. 6. Paroxysmal atrial fibrillation. 7. Dyslipidemia. 8. Ileus, which is improved. 9. Dysphagia, which is retested today and he is able to tolerate a diet. 10. Delirium, which is improved. 11. Gout with concern for an acute flare. 12. Diabetes mellitus. Continues to be on an insulin drip. PLAN: Continue insulin drip. Once TPN is completely tapered off, will start the patient on basal dose of insulin with pre-meal NovoLog. At this time, TPN has been slowly tapered off according to Cardiothoracic Surgery. Will start the patient on colchicine 0.6 mg q.8h. b.i.d. p.r.n. for gout pain. The patient should be monitored for any signs of bleeding with anti-inflammatory. If patient has not improved, will discontinue the medication tomorrow and likely given a burst of steroids, which do help gouty flares. Will follow.
[2016-12-02 01:07] LABS: Glucose,Whole Blood 110 mg/dL (75-99)
[2016-12-02] MEDS: METOCLOPRAMIDE 5 MG/ML 2 ML VIAL IVP SCH ×4 (01:41→16:14)
[2016-12-02] MEDS: COLCHICINE 0.6 MG TAB PO PRN (01:42)
[2016-12-02 04:35] LABS: Glucose,Whole Blood 73 mg/dL (75-99)
[2016-12-02 06:00] LABS: Anion Gap 8 mmol/L; Blood Urea Nitrogen 13 mg/dL (9-20); Carbon Dioxide 27 mmol/L (22-30); Chloride 99 mmol/L (98-107); Glucose 85 mg/dL (74-99); Non-African American GFR(MDRD) >60 (>60 ml/min/1.73 sqM); Potassium 3.8 mmol/L (3.5-5.1); Sodium 134 mmol/L (137-145)
[2016-12-02 06:28] LABS: Glucose,Whole Blood 107 mg/dL (75-99)
[2016-12-02 06:48] LABS: INR 1.2 (<1.1); Prothrombin Time 12.1 sec (9.0-12.0)
[2016-12-02 06:58] LABS: Basophils % (A) 0 %; CH 32.1; CHCM 33.8; Eosinophils # (A) 0.3 k/uL (0-0.7); Eosinophils % (A) 3 %; HCT 26.2 % (39.0-53.0); HDW 3.28; Luc # (Auto) 0.38; Luc % (Auto) 4; Lymphocytes # (A) 2.3 k/uL (1.0-4.8); Lymphocytes % (A) 21 %; MCH 32.8 pg (25.0-35.0); MCHC 34.4 g/dL (31.0-37.0); MCV 95.4 fL (80.0-100.0); Mean Platelet Volume 8.3; Monocytes # (A) 0.7 k/uL (0-1.0); Monocytes % (A) 7 %; Neutrophils # (A) 7.1 k/uL (1.3-7.7); Neutrophils % (A) 66 %; RBC 2.74 m/uL (4.30-5.90); RDW 14.8 % (11.5-15.5); WBC 10.8 k/uL (3.8-10.6); WBC (Perox) 10.78
[2016-12-02] MEDS ORDERED: POTASSIUM CHLORIDE ER 20 MEQ TAB.ER PO SCH (07:00)
[2016-12-02] MEDS: IPRATROPIUM-ALBUTEROL 3 ML NEB INHALATION SCH ×4 (07:44→19:09)
[2016-12-02] MEDS: BUDESONIDE 1 MG/2 ML NEBU INHALATION SCH ×2 (07:44→19:09)
--- NOTE | 2016-12-02 08:02 | XR ---
EXAMINATION TYPE: XR chest 1V portable DATE OF EXAM: 12/02/2016 6:44 AM HISTORY: post op cabg. REFERENCE: Previous study dated 12/01/2016. FINDINGS: There has been a midline sternotomy. The heart is enlarged. There is left basilar airspace disease. There is a small left effusion. The ri ght lung is clear. IMPRESSION: NO SIGNIFICANT INTERVAL CHANGE IN APPEARANCE OF THE CHEST.
[2016-12-02 08:04] LABS: Ionized Calcium 4.7 mg/dL (4.5-5.3)
[2016-12-02 08:15] LABS: Phosphorous 4.5 mg/dL (2.5-4.5)
[2016-12-02] MEDS: PANTOPRAZOLE 40 MG TABLET PO SCH (08:41)
[2016-12-02] MEDS: FUROSEMIDE 10 MG/ML 2 ML VIAL IV SCH ×2 (08:41→21:11)
[2016-12-02] MEDS: METOPROLOL TARTRATE 50 MG TAB PO SCH ×2 (08:41→22:06)
[2016-12-02] MEDS: DIGOXIN 250 MCG TAB OG-TUBE SCH (08:41)
[2016-12-02] MEDS: ASPIRIN 325 MG TAB PO SCH (08:41)
[2016-12-02] MEDS: ATORVASTATIN 40 MG TAB PO SCH (08:41)
[2016-12-02] MEDS: SERTRALINE 50 MG TAB PO SCH (08:42)
[2016-12-02] MEDS: AMIODARONE 200 MG TAB PO SCH (08:42)
[2016-12-02] MEDS: LISINOPRIL 10 MG TAB PO SCH ×2 (08:42→22:06)
[2016-12-02] MEDS: THIAMINE 100 MG TAB PO SCH ×2 (08:44→21:12)
[2016-12-02] MEDS ORDERED: POTASSIUM CHLORIDE ORAL LIQUID 40 MEQ/30 ML CUP NG-TUBE SCH (09:00)
--- NOTE | 2016-12-02 10:45 | P.PN ---
Subjective Principal diagnosis: Coronary artery disease, status post prior stenting to his right coronary artery. Preserved left ventricular function. Hyperlipidemia. Hypertension. ETOH abuse. POD #22 total arterial non-aortic patch off-pump double coronary artery bypass grafting using in situ skeletonized right internal mammary artery to the left anterior descending artery across the anterior midline in situ totally skeletonized left internal mammary artery to the first obtuse marginal artery. Intraoperative transesophageal echocardiogram and epi-aortic scanning. Intraoperative graft flow measurements using the [employer] system POD #22 flexible bronchoscopy with bronchial washings secondary to postoperative mucous plugging with increasing oxygen demand the night of surgery. Pt had acute hypoxic post operative respiratory failure as an unexpected post-surgical condition, related to the patient's underlying medical comorbidities. Unable to determine if ventilator associated pneumonia vs. trachobronchitis, an unexpected post-surgical condition. Sputum culture grew out Moraxella, blood cultures are negative to date, urine culture grew Klebsiella. Patient placed on Levaquin per pulmonology. Pt developed postoperative alcohol withdrawal requiring increased sedation and prolonged mechanical ventilation. Patient developed postoperative ileus, an unexpected post-surgical condition, currently resolving. Currently receiving TPN. General surgery and consult, no intervention at this time. Passed modified barium swallow yesterday. NGT removed. Placed on diet. TPN continues and calorie count in place until determination that patient is meeting caloric needs. Patient currently sitting up in cardiac chair in no apparent distress. No concerns/complaints. at bedside. Encouraged to increase arm/leg activity while sitting in chair. Objective - Vital Signs Vital signs: Vital Signs Temp 98.9 F 12/02/16 04:00 Pulse 69 12/02/16 08:02 Resp 14 12/02/16 04:00 BP 105/54 12/02/16 04:00 Pulse Ox 94 L 12/02/16 04:00 Intake & Output 12/01/16 12/02/16 12/02/16 18:59 06:59 18:59 Intake Total 198.787 3533.971 80 Output Total 1310 1140 210 Balance -340.487 -28.029 -130 Weight 95.8 kg 95.8 kg Intake: IV 240 240 80 .9 NaCL 240 240 80 Intake, IV Titration 609.513 571.971 Amount Heparin Sodium,Porcine/ 500 D5w Pmx 25,000 unit In Dextrose/Water 1 500ml. bag @ 10 UNITS/KG/HR 19. 98 mls/hr IV .Q24H [facility] Rx #:[id number] Insulin Regular 100 unit 67.513 71.971 In Sodium Chloride 0.9% 100 ml @ Per Protocol IV .Q0M [facility] Rx#:[id number] Levofloxacin 750Mg-D5w 150 Pmx 750 mg In Dextrose/ Water 1 150ml.bag @ 100 mls/hr IVPB Q24H [facility] Rx#: [id number] Magnesium Sulfate-D5w Pmx 10 1 gm In Dextrose/Water 1 100ml.bag @ 100 mls/hr IVPB Q1H [facility] Rx#: [id number] Mvi, Adult No.4 with Vit 342 K 10 ml Trace (Conc-1Ml/ Dose) 1 ml In Amino Acid 5%-D25w+Lytes*E* 1,000 ml @ 75 mls/hr IV .BY DURATION [facility] Rx#: [id number] Mvi, Adult No.4 with Vit 40 K 10 ml Trace (Conc-1Ml/ Dose) 1 ml Sodium Acetate 30 meq Potassium Chloride 20 meq Calcium Gluconate 1,000 mg In Amino Acid 5%-D25w 1,000 ml @ 75 mls/hr IV . [id number] [facility] Rx#:[id number] Oral 300 Tube Feeding 120 Output: Urine 1310 1140 210 Other: Voiding Method Indwelling Catheter Indwelling Catheter # Bowel Movements 1 ABP, PAP, CO, CI - Last Documented Arterial Blood Pressure 172/58 Pulmonary Artery Pressure 46/23 Cardiac Output 6.8 Cardiac Index 3.3 - Constitutional General appearance: Present: cooperative, no acute distress, obese - Respiratory Details: Lung sounds diminished leonard. Resp even/non-labored. Currently on room air with O2 sats 95%. Able to achieve 750 ml on incentive spirometry. Effective cough. - Cardiovascular Details: S1/S2 present. Reg rate/rhythm, NSR on telemetry. Sternum stable superiorly, movable inferiorly. Heart hugger in place with pt starting to demonstrate appropriate use. Trace leonard lower extremity edema present.Teds/SCDs present. - Gastrointestinal Gastrointestinal Comment(s): Abd soft/NT/slightly distended. Hyperactive BS. TPN infusing, pt tolerating diet. BM yesterday. - Genitourinary Genitourinary Comment(s): Tay present draining clear yellow urine. Output 45-100 ml/hr. - Musculoskeletal Musculoskeletal: Present: generalized weakness - Psychiatric Psychiatric: Present: A&O x's 3, appropriate affect, intact judgment & insight - Allied health notes Allied health notes reviewed: nursing - Labs CBC & Chem 7: 12/02/16 05:20 12/02/16 05:20 Labs: Abnormal Lab Results - Last 24 Hours (Table) 12/01/16 12/01/16 12/01/16 Range/Units 11:04 12:35 13:29 WBC (3.8-10.6) k/uL RBC (4.30-5.90) m/uL Hgb (13.0-17.5) gm/dL Hct (39.0-53.0) % PT (9.0-12.0) sec APTT (22.0-30.0) sec Sodium (137-145) mmol/L POC Glucose (mg/dL) 150 H 102 H 117 H (75-99) mg/dL Calcium (8.4-10.2) mg/dL 12/01/16 12/01/16 12/01/16 Range/Units 14:27 15:08 16:03 WBC (3.8-10.6) k/uL RBC (4.30-5.90) m/uL Hgb (13.0-17.5) gm/dL Hct (39.0-53.0) % PT (9.0-12.0) sec APTT (22.0-30.0) sec Sodium (137-145) mmol/L POC Glucose (mg/dL) 123 H 121 H 124 H (75-99) mg/dL Calcium (8.4-10.2) mg/dL 12/01/16 12/01/16 12/01/16 Range/Units 18:18 19:04 20:02 WBC (3.8-10.6) k/uL RBC (4.30-5.90) m/uL Hgb (13.0-17.5) gm/dL Hct (39.0-53.0) % PT (9.0-12.0) sec APTT (22.0-30.0) sec Sodium (137-145) mmol/L POC Glucose (mg/dL) 108 H 122 H 127 H (75-99) mg/dL Calcium (8.4-10.2) mg/dL 12/01/16 12/01/16 12/02/16 Range/Units 21:24 22:00 01:04 WBC (3.8-10.6) k/uL RBC (4.30-5.90) m/uL Hgb (13.0-17.5) gm/dL Hct (39.0-53.0) % PT (9.0-12.0) sec APTT (22.0-30.0) sec Sodium (137-145) mmol/L POC Glucose (mg/dL) 115 H 129 H 110 H (75-99) mg/dL Calcium (8.4-10.2) mg/dL 12/02/16 12/02/16 12/02/16 Range/Units 04:32 05:20 05:20 WBC 10.8 H (3.8-10.6) k/uL RBC 2.74 L (4.30-5.90) m/uL Hgb 9.0 L (13.0-17.5) gm/dL Hct 26.2 L (39.0-53.0) % PT (9.0-12.0) sec APTT 54.1 H (22.0-30.0) sec Sodium (137-145) mmol/L POC Glucose (mg/dL) 73 L (75-99) mg/dL Calcium (8.4-10.2) mg/dL 12/02/16 12/02/16 12/02/16 Range/Units 05:20 05:20 06:15 WBC (3.8-10.6) k/uL RBC (4.30-5.90) m/uL Hgb (13.0-17.5) gm/dL Hct (39.0-53.0) % PT 12.1 H (9.0-12.0) sec APTT (22.0-30.0) sec Sodium 134 L (137-145) mmol/L POC Glucose (mg/dL) 107 H (75-99) mg/dL Calcium 8.0 L (8.4-10.2) mg/dL - Imaging and Cardiology Chest x-ray: report reviewed, image reviewed Assessment and Plan (1) Status post coronary artery bypass graft Status: Acute (2) Coronary artery disease Status: Acute (3) Family history of heart disease Status: Acute (4) History of PTCA Status: Acute (5) Hyperlipidemia Status: Acute (6) Hypertension Status: Acute (7) Nicotine dependence, chewing tobacco, uncomplicated Status: Acute Plan: 1. Continue ASA, Lipitor, heparin, Lopressor, lisinopril, digoxin, Lasix. Start Coumadin today. 2. Continue amiodarone for atrial fibrillation prophylaxis. 3. Wean O2 as tolerated. 4. Dulcolax suppository today. 5. Continue TPN for until patient able to take in enough calories. Calorie count in place. 6. Insulin/diabetic management per primary care service. 7. Continue antibiotics per pulmonology. 8. Increase activity, out of bed to chair. Physical therapy following. 9. Daily labs, chest x-rays. 10. GI/DVT prophylaxis. 11. Potassium replacement per protocol. 12. Zoloft 50 mg daily started yesterday. 13. Transfer [facility] soon. 14. Discharge planning in process. Patient will need rehabilitation upon discharge. Time with Patient: Greater than 30
--- NOTE | 2016-12-02 10:48 | P.PN ---
Progress Note - Text This is a 61-year-old gentleman who is status post prior to coronary bypass surgery. Patient had a prolonged stay in ICU on mechanical ventilator support. He is also had some neuromuscular weakness. The patient was in and out atrial fibrillation with RVR. But he was converted to normal sinus mechanism 3 days ago. He is on metoprolol, amiodarone, and digoxin. The blood pressure has been stable. The heparin is going to be stopped and the patient will be started on Coumadin. From the cardiovascular standpoint overview, we'll continue the current medical treatment. The patient is feeling at her slowly.
[2016-12-02] MEDS ORDERED: INSULIN LISPRO (humaLOG) 300 UNIT/3 ML VIAL SQ SCH ×2 (13:23→17:30)
[2016-12-02 13:24] LABS: Glucose,Whole Blood 162 mg/dL (75-99)
--- NOTE | 2016-12-02 13:32 | P.PN ---
Subjective Principal diagnosis: Status post CABG, postoperative day # 22 61-year-old male patient with status post carotid bypass surgery and the patient is postop day #11. The patient has failed to wean off the mechanical ventilator. Immediately postop the patient had pulmonate complications including mucous plugs and atelectasis of the left lung. He required bronchoscopy and therapeutic airway suctioning and all of the respiratory cultures came back negative. This morning, the patient was on a volume cycled assist-control mode of ventilation at the rate of 20, tidal volume 450, FiO2 of 40% and a PEEP of 5. I reviewed the blood gases and I reviewed also the chest x -ray. I noted that the patient was unable to tolerate assist-control mode. Attempts to wean him off the sedation Emily as the patient was becoming restless and a successful the mechanical ventilator. Based on this, I switched this patient to a pressure support mode of ventilation and I was able to completely wean him off sedation. He was wide awake all he was hardly able to wiggle his toes or move his fingers and he was unable to raise his had or arms against gravity. He was having copious amount of rest or secretions and he was requiring frequent suctioning. At a later stage, switch this patient to a pressure control mode of ventilation with a PEEP of 7 and a pressure control of 20 and his FiO2 was At 60%. He remains hemodynamically stable. He is producing adequate amount of urine output. No pressors at this point. No fever. No chills. Chest tubes have been all removed. He is tolerating tube feeds. Atelectatic discussion with the cardiothoracic surgeon and will plan to proceed with a PEG and trach if the patient ultimately failed weaning. 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 On 11/22/2016 the patient remains intubated on a mechanical ventilator. I was able to the sedation completely on the patient. He is awake at this point and he had been awake throughout the night. He is following simple commands. Motor functions are nearly absent. The patient is extremely weak. He can wiggle his toes and occasionally bend his knees. Otherwise he cannot raise his arms and legs against gravity. He has a cough reflex. He can blink his eyes and raises eyebrows. Reflexes are significantly diminished in the upper and lower extremities bilaterally. Is on a pressure control mode of ventilation at the rate of 18, PC 18, PEEP of 7 and FiO2 of 50%. Still having significant respiratory secretions through the orotracheal tube. The chest x-ray from today shows moderate parenchymal opacity within the left lung base and the right lung base. There is some atelectatic changes in the lung bases more so on the left. The patient has also postop changes related to coronary artery bypass surgery. No fever. No chills. Hemodynamically stable. Producing adequate amount of urine output and the patient was diuresis with a combination of albumin and Lasix. He is on tube feeds. On 11/23/2016 the patient remains on a mechanical ventilator. Seems to be much more awake compared to yesterday. Motor functions remain weak over the patient is doing more activity and movement on today's evaluation. We were able to bring the patient is sitting up position for a total of 2 hours today. He tolerated well and following that he had a coughing spells and he had to be placed in bed. He remains in the same vent setting with a pressure control of 18, PEEP of 7, FiO2 of 50% and rate of 18. Chest x-ray shows adequate expansion of the left lung with a few being in good location. Sputum analysis showed Moraxella catarrhalis and the based on that the patient was started on Levaquin. Note that he had also Klebsiella PNEUMONIA IN HIS URINE, AND BOTH OF THESE MICROORGANISMS SHOULD RESPOND TO LEVAQUIN. Meanwhile, the patient is receiving enteral feeding for nutritional support. IV Solu Medrol is been discontinued. We'll doing daily physical therapy and passive range of motion. He remains on IV heparin. He remains on IV insulin for blood sugar control. Morning blood gases showed a pH of 7.51 with a pCO2 of 26 and pO2 of 79. Weaning parameters are still poor as the patient has rapid shallow breathing index around 120 and the patient becomes tachypneic and the LOW tidal volumes. On 11/24/2016 the patient is being seen in follow-up. Earlier this morning the patient was still mechanical ventilator on a pressure control mode. Chest x- ray from earlier this morning showed no significant abnormalities. There was improvement in aeration in lung bases bilaterally especially on the left. NG tube was still in a good location below the diaphragm. Meanwhile affect abdominal film was done this morning and that showed a component of ileus. Note that overnight, the patient's tube feeds were discontinued knowing that he had 2 bouts of emesis. Nevertheless, despite ongoing gastrointestinal abnormalities, the patient is doing very well while being on mechanical ventilator and is awake and alert. We checked his weaning parameters this morning and the numbers looked very well. He was given a pressure support of 5 and PEEP of 5 and a breathing trial for a total of 30 minutes and following that we made a decision to extubate this patient. This was a difficult decision to make knowing that the patient had an underlying abdominal ileus and he is still having significant motor weakness in the upper and lower extremities. Nevertheless, I noted that his motor function is improved his cough improved and he had very decent weaning parameters. I suspected that this will be his last chance of being extubated and if not successful, he will need a PEG and trach with the next 24 hours. Based on this, I extubated this patient. He remains on IV heparin. He remains on IV insulin. He is also on Levaquin. He is afebrile. He is awake and following commands. Motor function is gradually improving. No other new complaints otherwise for now. Noted post extubation, the patient was placed on 5 L of oxygen nasal cannula with saturation of 94-95%He continued to bleed comfortably. He was placed in sitting up position in ICU. 11/25/2016, the patient is being seen in follow-up in the intensive care unit. The patient has been extubated and has been off the mechanical ventilator for the past 24 hours. He is breathing comfortably. No significant rest or distress. NG tube is in place. There is considerable amount of output from the NG tube still in the abdomen is distended although less compared to yesterday. He had colonic ileus and some dilatation of the small bowel. A rectal tube was inserted and abdomen was quite deflated. He is producing some loose liquidy bowel movements yesterday and small amounts. Rectal examination was done and the patient does not have any impacted stool. No abdominal pain. No fever. No chills. He is in sinus rhythm for the time being and stable hemodynamics. Is producing adequate amount of urine output. All of the surgical wound sites are clean and intact. Neurologically is awake. There has been obvious improvement in the motor function and the patient is talking and communicating at this point. He remains on IV heparin. He remains on IV insulin for blood sugar control. White cell count is at 15.1. Hemoglobin is stable at 8.7. On 11/26/2016, the patient is being seen in follow-up. The patient is awake. Following commands and communicating. As mentioned earlier, profoundly weak although that has been steady and slow improvement in his motor function. NG tube in place. Abdomen remains distended. Flexeril of the abdomen shows ileus both large and small bowel. No bowel functional mobility at all over the past 12 hours. The patient is on Reglan. From the pulmonary standpoint, he is calm and comfortable. No labored breathing. Actually taking well on 3 L of oxygen by nasal cannula. The chest exit from today shows stable at ectatic changes small effusion the lung bases bilaterally. NG tube in place. Output is minimal at this point. Abdomen is tender get is soft and nontender. Bowel sounds are very hypoactive. Repeat abdominal films was reviewed and there is concern of ongoing large and small bowel ileus. He is on IV heparin. Remains on IV insulin for blood sugar control. Remains nothing by mouth for the time being. No leukocytosis. Cardiac rhythm is sinus. On 11/27/2016 I'm seeing this patient in follow-up. He is awake. He is communicating. NG tube is in place. Total amount of output from the NG tube is around 250 mL over the past 24 hours. Abdomen remains distended and tympanic and bowel sounds are hypoactive. CAT scan of the abdomen that was done showed a large bowel ileus. The patient is on Reglan. The patient was started on TPN for nutritional support. The CAT scan of the chest also showed some early dehiscence in the lower surgical incision with some surrounding swelling/hematoma. There is small better pleural effusion and atelectasis in the left lung base. No fever. No chills. Still on insulin drip. Still on a heparin drip. Right upper extremity is swollen and Artline catheter needs to be removed. On 11/28/2016, patient was seen on follow-up, continues to be about the same. Continues to have nasogastric tube in place, continues to have hypoactive bowel sounds and what seems to be an ileus. Patient remains on TPN for nutritional support, ultrasound of the right upper extremity showed no evidence of DVT. Chest x-ray showed cardiomegaly and small left pleural effusion. All labs were reviewed, PTT is therapeutic. Hemoglobin is 8.8 today. Basic metabolic profile is relatively normal. On 11/29/2016, patient seems to be a bit more active, and bit more verbal, and more responsive. Denies any shortness of breath, no cough no wheezing, no chest pain, no fever, no chills, no hemoptysis. Continues to have nasogastric tube in place, and his abdomen remains a bit distended. Remains on TPN, and I would like to have the swallow evaluation done by speech therapy hoping we could place the patient on oral diet. All his labs were reviewed. Electrolytes are normal PTT therapeutic CBC is normal hemoglobin is 8.6. Patient remains on physical therapy On 11/30/2016, patient seems to be doing relatively well, about the same compared to yesterday. The main issue at this point seems to be issue of feeding, patient failed his swallow evaluation, and we would start feeding at least at a slow pace using his nasogastric tube, patient may eventually need a Dobbhoff or he may need a PEG tube placement. CBC was reviewed, hemoglobin is 8.7. Electrolytes and renal profile are normal. WBC count is 12.4. Chest x-ray showed small bilateral pleural effusions. On 12/01/2016 patient continues to slowly and gradually improve, he seems to be tolerating tube feeding well, he may have a modified barium swallow today, and if he does well may even consider taking the nasogastric tube out, and start feeding the patient. In the meantime we have been able to cut down on his TPN, and 50% of his caloric requirement is given by enteral feeding, and 50% is by TPN at present. Again were hoping we could potentially remove the nasogastric tube today. In the meantime the patient has less abdominal discomfort, he had a few bowel movements, and his GI issues seems to be improving. Labs were reviewed he had a relatively normal CBC and relatively normal basic metabolic profile. On 12/02/2016, patient is doing relatively well, improving but very slowly, remains generally weak, and he is not eating much to be able to discontinue his TPN at this point. Hence we felt it would be best to keep TPN at the high dose to meet his caloric requirements, since his oral intake is not much. His nasogastric tube was removed. Patient continues to have physical therapy at bedside. Labs today were reviewed normal CBC noted normal basic metabolic profile noted PTT is therapeutic at 54.1. Coumadin has not been restarted yet. Objective - Vital Signs Vital signs: Vital Signs Temp 98.9 F 12/02/16 04:00 Pulse 62 12/02/16 11:03 Resp 14 12/02/16 08:00 BP 105/54 12/02/16 04:00 Pulse Ox 94 L 12/02/16 04:00 Intake & Output 12/01/16 12/02/16 12/02/16 18:59 06:59 18:59 Intake Total 289.771 2446.971 80 Output Total 1310 1140 210 Balance -340.487 -28.029 -130 Weight 95.8 kg 95.8 kg Intake: IV 240 240 80 .9 NaCL 240 240 80 Intake, IV Titration 609.513 571.971 Amount Heparin Sodium,Porcine/ 500 D5w Pmx 25,000 unit In Dextrose/Water 1 500ml. bag @ 10 UNITS/KG/HR 19. 98 mls/hr IV .Q24H [facility] Rx #:[id number] Insulin Regular 100 unit 67.513 71.971 In Sodium Chloride 0.9% 100 ml @ Per Protocol IV .Q0M [facility] Rx#:[id number] Levofloxacin 750Mg-D5w 150 Pmx 750 mg In Dextrose/ Water 1 150ml.bag @ 100 mls/hr IVPB Q24H [facility] Rx#: [id number] Magnesium Sulfate-D5w Pmx 10 1 gm In Dextrose/Water 1 100ml.bag @ 100 mls/hr IVPB Q1H [facility] Rx#: [id number] Mvi, Adult No.4 with Vit 342 K 10 ml Trace (Conc-1Ml/ Dose) 1 ml In Amino Acid 5%-D25w+Lytes*E* 1,000 ml @ 75 mls/hr IV .BY DURATION [facility] Rx#: [id number] Mvi, Adult No.4 with Vit 40 K 10 ml Trace (Conc-1Ml/ Dose) 1 ml Sodium Acetate 30 meq Potassium Chloride 20 meq Calcium Gluconate 1,000 mg In Amino Acid 5%-D25w 1,000 ml @ 75 mls/hr IV . [id number] [facility] Rx#:[id number] Oral 300 Tube Feeding 120 Output: Urine 1310 1140 210 Other: Voiding Method Indwelling Catheter Indwelling Catheter Indwelling Catheter # Bowel Movements 1 ABP, PAP, CO, CI - Last Documented Arterial Blood Pressure 172/58 Pulmonary Artery Pressure 46/23 Cardiac Output 6.8 Cardiac Index 3.3 - Exam Physical Exam: Revealed a 61-year-old white male, chronically ill, weak, but in no form of respiratory distress. HEENT:[Neck is supple.] [No neck masses.] [No thyromegaly.] [No JVD.] Nasogastric tube is noted to be in place. Chest: [Diminished breath sounds at the bases, no crackles, no rhonchi, no wheezes.] Cardiac Exam: [Normal S1 and S2, no S3 gallop, no murmur.] Abdomen: [Soft, nontender, no megaly, no rebound, no guarding, normal bowel sounds.] Extremities: [No clubbing, no edema, no cyanosis.] Neurological Exam: [No focal neurologic deficit.] However patient is noted to be generally weak. - Labs CBC & Chem 7: 12/02/16 05:20 12/02/16 05:20 Labs: Abnormal Lab Results - Last 24 Hours (Table) 12/01/16 12/01/16 12/01/16 Range/Units 13:29 14:27 15:08 WBC (3.8-10.6) k/uL RBC (4.30-5.90) m/uL Hgb (13.0-17.5) gm/dL Hct (39.0-53.0) % PT (9.0-12.0) sec APTT (22.0-30.0) sec Sodium (137-145) mmol/L POC Glucose (mg/dL) 117 H 123 H 121 H (75-99) mg/dL Calcium (8.4-10.2) mg/dL 12/01/16 12/01/16 12/01/16 Range/Units 16:03 18:18 19:04 WBC (3.8-10.6) k/uL RBC (4.30-5.90) m/uL Hgb (13.0-17.5) gm/dL Hct (39.0-53.0) % PT (9.0-12.0) sec APTT (22.0-30.0) sec Sodium (137-145) mmol/L POC Glucose (mg/dL) 124 H 108 H 122 H (75-99) mg/dL Calcium (8.4-10.2) mg/dL 12/01/16 12/01/16 12/01/16 Range/Units 20:02 21:24 22:00 WBC (3.8-10.6) k/uL RBC (4.30-5.90) m/uL Hgb (13.0-17.5) gm/dL Hct (39.0-53.0) % PT (9.0-12.0) sec APTT (22.0-30.0) sec Sodium (137-145) mmol/L POC Glucose (mg/dL) 127 H 115 H 129 H (75-99) mg/dL Calcium (8.4-10.2) mg/dL 12/02/16 12/02/16 12/02/16 Range/Units 01:04 04:32 05:20 WBC 10.8 H (3.8-10.6) k/uL RBC 2.74 L (4.30-5.90) m/uL Hgb 9.0 L (13.0-17.5) gm/dL Hct 26.2 L (39.0-53.0) % PT (9.0-12.0) sec APTT (22.0-30.0) sec Sodium (137-145) mmol/L POC Glucose (mg/dL) 110 H 73 L (75-99) mg/dL Calcium (8.4-10.2) mg/dL 12/02/16 12/02/16 12/02/16 Range/Units 05:20 05:20 05:20 WBC (3.8-10.6) k/uL RBC (4.30-5.90) m/uL Hgb (13.0-17.5) gm/dL Hct (39.0-53.0) % PT 12.1 H (9.0-12.0) sec APTT 54.1 H (22.0-30.0) sec Sodium 134 L (137-145) mmol/L POC Glucose (mg/dL) (75-99) mg/dL Calcium 8.0 L (8.4-10.2) mg/dL 12/02/16 12/02/16 Range/Units 06:15 13:20 WBC (3.8-10.6) k/uL RBC (4.30-5.90) m/uL Hgb (13.0-17.5) gm/dL Hct (39.0-53.0) % PT (9.0-12.0) sec APTT (22.0-30.0) sec Sodium (137-145) mmol/L POC Glucose (mg/dL) 107 H 162 H (75-99) mg/dL Calcium (8.4-10.2) mg/dL Assessment and Plan Plan: 1 Coronary artery disease status post cardiac bypass surgery and the patient is postop day # 22 2 prolonged postoperative ventilator-dependent history failure, multifactorial. Patient has extubated. Nevertheless, the active ongoing problems for now is his neuromuscular weakness and ongoing ileus. Patient has a combination of large bowel ileus as evident on the flat film the abdomen. NG tube still in place. 3 recurrent mucous plugs with excessive respiratory secretions requiring bronchoscopy and a peak airway suctioning and a bronchoscopy cultures came back negative for any microbial growth. The most recent sputum analysis showing Moraxella catarrhalis and the patient is currently on Levaquin. Chest x-ray from today is showing atelectatic changes in lung bases bilaterally. Nevertheless the patient is oxygenating well and there is no respiratory distress at this point. 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 Despite this, the patient is having a nontoxic abdomen. No abdominal tenderness. No leukocytosis. No fever. No acidosis. NG tube is in place and the patient is still nothing by mouth. 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 Doubt infection Recommendation: Continue present supportive care measures, continue TPN, continue physical therapy and occupational therapy patient obviously has a long way to go, and eventually we should consider referral to ECF. Hopefully this will happen next week. Time with Patient: Less than 30
[2016-12-02 16:09] LABS: Glucose,Whole Blood 221 mg/dL (75-99)
[2016-12-02] MEDS: INSULIN REGULAR 100 UNIT in SODIUM CHLORIDE 0.9% 100 ML IV SCH ×2 (16:11→22:08)
[2016-12-02] MEDS: FAT EMULSION 20% 250 ML in EMPTY BAG 1 BAG IV SCH (16:11)
--- NOTE | 2016-12-02 16:55 | P.PN ---
Subjective Patient is evaluated at bedside sitting up in a chair. Patient is status post modified barium swallow x-ray with no evidence of leak or aspiration. Patient has been started on a mechanical diet. Tolerating well. Patient denies nausea, vomiting, or abdominal pain. Patient passing flatus with bowel movement. Objective - Vital Signs Vital signs: Vital Signs Temp 98.0 F 12/02/16 16:00 Pulse 68 12/02/16 16:04 Resp 21 12/02/16 16:00 BP 112/63 12/02/16 16:00 Pulse Ox 93 L 12/02/16 16:00 Intake & Output 12/01/16 12/02/16 12/02/16 18:59 06:59 18:59 Intake Total 546.888 5624.971 290 Output Total 1310 1140 530 Balance -340.487 -28.029 -240 Weight 95.8 kg 95.8 kg Intake: IV 240 240 200 .9 NaCL 240 240 200 Intake, IV Titration 609.513 571.971 Amount Heparin Sodium,Porcine/ 500 D5w Pmx 25,000 unit In Dextrose/Water 1 500ml. bag @ 10 UNITS/KG/HR 19. 98 mls/hr IV .Q24H [facility] Rx #:[id number] Insulin Regular 100 unit 67.513 71.971 In Sodium Chloride 0.9% 100 ml @ Per Protocol IV .Q0M [facility] Rx#:[id number] Levofloxacin 750Mg-D5w 150 Pmx 750 mg In Dextrose/ Water 1 150ml.bag @ 100 mls/hr IVPB Q24H [facility] Rx#: [id number] Magnesium Sulfate-D5w Pmx 10 1 gm In Dextrose/Water 1 100ml.bag @ 100 mls/hr IVPB Q1H [facility] Rx#: [id number] Mvi, Adult No.4 with Vit 342 K 10 ml Trace (Conc-1Ml/ Dose) 1 ml In Amino Acid 5%-D25w+Lytes*E* 1,000 ml @ 75 mls/hr IV .BY DURATION [facility] Rx#: [id number] Mvi, Adult No.4 with Vit 40 K 10 ml Trace (Conc-1Ml/ Dose) 1 ml Sodium Acetate 30 meq Potassium Chloride 20 meq Calcium Gluconate 1,000 mg In Amino Acid 5%-D25w 1,000 ml @ 75 mls/hr IV . [id number] [facility] Rx#:[id number] Oral 300 60 Tube Feeding 120 30 Output: Urine 1310 1140 530 Other: Voiding Method Indwelling Catheter Indwelling Catheter Indwelling Catheter # Bowel Movements 1 1 ABP, PAP, CO, CI - Last Documented Arterial Blood Pressure 172/58 Pulmonary Artery Pressure 46/23 Cardiac Output 6.8 Cardiac Index 3.3 - Exam GENERAL: Pt awake and alert, and in no acute distress. LUNGS: Breath sounds diminished to auscultation bilaterally. No wheezes, rales , or rhonchi. HEART: Heart S1, S2, no S3 or S4. Regular rate and rhythm. No murmurs, rubs or gallops. ABDOMEN: Soft, nontender, distended, hyperactive bowel sounds. No guarding, no rebound. - Labs CBC & Chem 7: 12/02/16 05:20 12/02/16 05:20 Labs: Abnormal Lab Results - Last 24 Hours (Table) 12/01/16 12/01/16 12/01/16 Range/Units 18:18 19:04 20:02 WBC (3.8-10.6) k/uL RBC (4.30-5.90) m/uL Hgb (13.0-17.5) gm/dL Hct (39.0-53.0) % PT (9.0-12.0) sec APTT (22.0-30.0) sec Sodium (137-145) mmol/L POC Glucose (mg/dL) 108 H 122 H 127 H (75-99) mg/dL Calcium (8.4-10.2) mg/dL 12/01/16 12/01/16 12/02/16 Range/Units 21:24 22:00 01:04 WBC (3.8-10.6) k/uL RBC (4.30-5.90) m/uL Hgb (13.0-17.5) gm/dL Hct (39.0-53.0) % PT (9.0-12.0) sec APTT (22.0-30.0) sec Sodium (137-145) mmol/L POC Glucose (mg/dL) 115 H 129 H 110 H (75-99) mg/dL Calcium (8.4-10.2) mg/dL 12/02/16 12/02/1612/02/17 Range/Units 04:32 05:20 05:20 WBC 10.8 H (3.8-10.6) k/uL RBC 2.74 L (4.30-5.90) m/uL Hgb 9.0 L (13.0-17.5) gm/dL Hct 26.2 L (39.0-53.0) % PT (9.0-12.0) sec APTT 54.1 H (22.0-30.0) sec Sodium (137-145) mmol/L POC Glucose (mg/dL) 73 L (75-99) mg/dL Calcium (8.4-10.2) mg/dL 12/02/16 12/02/16 12/02/16 Range/Units 05:20 05:20 06:15 WBC (3.8-10.6) k/uL RBC (4.30-5.90) m/uL Hgb (13.0-17.5) gm/dL Hct (39.0-53.0) % PT 12.1 H (9.0-12.0) sec APTT (22.0-30.0) sec Sodium 134 L (137-145) mmol/L POC Glucose (mg/dL) 107 H (75-99) mg/dL Calcium 8.0 L (8.4-10.2) mg/dL 12/02/16 12/02/16 Range/Units 13:20 15:59 WBC (3.8-10.6) k/uL RBC (4.30-5.90) m/uL Hgb (13.0-17.5) gm/dL Hct (39.0-53.0) % PT (9.0-12.0) sec APTT (22.0-30.0) sec Sodium (137-145) mmol/L POC Glucose (mg/dL) 162 H 221 H (75-99) mg/dL Calcium (8.4-10.2) mg/dL Assessment and Plan Plan: Impression: 1. Dysphagia, resolved. 2. Ileus, improving. Plan: Continue diet per speech therapist. Continue medical treatment. Continue to observe. The above impression and plan have been discussed and directed by Dr. Rosas. Birgitte EMERGENCY TECHNICIAN-C acting as scribe for Dr. Rosas.
[2016-12-02 17:07] LABS: Glucose,Whole Blood 136 mg/dL (75-99)
[2016-12-02] MEDS: 1: MVI, ADULT NO.4 WITH VIT K 10 ML, TRACE (CONC-1ML/DOSE) 1 ML in AMINO ACID 5%-D25W+LY IV SCH ×3 (17:08)
[2016-12-02] MEDS ORDERED: WARFARIN 5 MG TAB PO ONE (18:00)
[2016-12-02 18:15] LABS: Glucose,Whole Blood 128 mg/dL (75-99)
[2016-12-02 20:23] LABS: Glucose,Whole Blood 148 mg/dL (75-99)
[2016-12-02] MEDS ORDERED: INSULIN NPH 300 UNIT/3 ML VIAL SQ SCH (21:00)
[2016-12-02 22:10] LABS: Glucose,Whole Blood 129 mg/dL (75-99)
[2016-12-02] MEDS: SENNOSIDES-DOCUSATE SODIUM 1 EACH TAB PO SCH (23:57)
[2016-12-02 23:58] LABS: Glucose,Whole Blood 109 mg/dL (75-99)
[2016-12-03 01:10] LABS: Glucose,Whole Blood 134 mg/dL (75-99)
[2016-12-03 02:22] LABS: Glucose,Whole Blood 130 mg/dL (75-99)
[2016-12-03] MEDS: METOCLOPRAMIDE 5 MG/ML 2 ML VIAL IVP SCH ×5 (02:34→23:47)
[2016-12-03 04:11] LABS: Glucose,Whole Blood 119 mg/dL (75-99)
[2016-12-03 04:38] LABS: CH 31.9; CHCM 33.4; HCT 26.6 % (39.0-53.0); HDW 3.18; HGB 8.9 gm/dL (13.0-17.5); MCH 32.1 pg (25.0-35.0); MCHC 33.5 g/dL (31.0-37.0); MCV 95.8 fL (80.0-100.0); Mean Platelet Volume 7.5; RBC 2.78 m/uL (4.30-5.90); RDW 14.8 % (11.5-15.5); WBC 10.5 k/uL (3.8-10.6)
[2016-12-03 04:49] LABS: INR 1.3 (<1.1); Partial Thromboplastin Time 49.6 sec (22.0-30.0); Prothrombin Time 12.6 sec (9.0-12.0)
[2016-12-03 04:54] LABS: Ionized Calcium 4.7 mg/dL (4.5-5.3)
[2016-12-03 05:08] LABS: Anion Gap 8 mmol/L; Blood Urea Nitrogen 14 mg/dL (9-20); Calcium 8.1 mg/dL (8.4-10.2); Carbon Dioxide 27 mmol/L (22-30); Chloride 98 mmol/L (98-107); Glucose 118 mg/dL (74-99); Non-African American GFR(MDRD) >60 (>60 ml/min/1.73 sqM); Phosphorous 3.9 mg/dL (2.5-4.5); Potassium 3.7 mmol/L (3.5-5.1); Sodium 133 mmol/L (137-145)
[2016-12-03] MEDS: HEPARIN SODIUM,PORCINE/D5W PMX 25,000 UNIT in DEXTROSE/WATER 1 500ML.BAG IV SCH ×2 (05:55→20:22)
[2016-12-03 06:06] LABS: Glucose,Whole Blood 128 mg/dL (75-99)
[2016-12-03] MEDS ORDERED: INSULN ASP PRT/INSULIN ASPART 100 UNIT/ML 10 ML VIAL SQ SCH (07:30)
--- NOTE | 2016-12-03 08:00 | XR ---
EXAMINATION TYPE: XR chest 1V portable DATE OF EXAM: 12/03/2016 6:37 AM COMPARISON: Prior chest x-ray 02 Dec 2016 HISTORY: Status post coronary artery bypass graft TECHNIQUE: Single frontal view of the chest is obtained. FINDINGS: The patient is post median sternotomy and the heart is enlarged. There may be some improve d aeration at the left lung base. Left-sided PICC line remains in place, distal tip overlies the lynn on of the right atrium. No pneumothorax or sizable pleural effusion. IMPRESSION: There may be left lower lobe atelectasis and small effusion. Cardiomegaly. There may be some improvement in aeration.
[2016-12-03 08:35] LABS: Glucose,Whole Blood 104 mg/dL (75-99)
[2016-12-03] MEDS: IPRATROPIUM-ALBUTEROL 3 ML NEB INHALATION SCH ×4 (08:44→19:35)
[2016-12-03] MEDS: BUDESONIDE 1 MG/2 ML NEBU INHALATION SCH ×2 (08:44→19:35)
[2016-12-03] MEDS ORDERED: POTASSIUM CHLORIDE ER 20 MEQ TAB.ER PO ONE (09:00)
[2016-12-03] MEDS: AMIODARONE 200 MG TAB PO SCH (09:02)
[2016-12-03] MEDS: ATORVASTATIN 40 MG TAB PO SCH (09:03)
[2016-12-03] MEDS: FUROSEMIDE 10 MG/ML 2 ML VIAL IV SCH ×2 (09:03→20:22)
[2016-12-03] MEDS: DIGOXIN 250 MCG TAB OG-TUBE SCH (09:03)
[2016-12-03] MEDS: ASPIRIN 325 MG TAB PO SCH (09:03)
[2016-12-03] MEDS: SERTRALINE 50 MG TAB PO SCH (09:04)
[2016-12-03] MEDS: PANTOPRAZOLE 40 MG TABLET PO SCH (09:04)
[2016-12-03] MEDS: THIAMINE 100 MG TAB PO SCH ×2 (09:05→20:22)
[2016-12-03] MEDS: MVI, ADULT NO.4 WITH VIT K 10 ML, TRACE (CONC-1ML/DOSE) 1 ML, POTASSIUM CHLORIDE 20 MEQ... IV SCH ×4 (09:54)
[2016-12-03 10:16] LABS: Glucose,Whole Blood 187 mg/dL (75-99)
--- NOTE | 2016-12-03 10:21 | P.PN ---
Progress Note - Text This is a 61-year-old gentleman who is status post prior to coronary bypass surgery. Patient had a prolonged stay in ICU on mechanical ventilator support. He is also had some neuromuscular weakness. The patient was in and out atrial fibrillation with RVR. But he was converted to normal sinus mechanism 3 days ago. He is on metoprolol, amiodarone, and digoxin. The blood pressure has been stable. He continues to be on heparin IV and he was started on Coumadin. From the cardiovascular standpoint overview, we'll continue the current medical treatment. The patient is feeling at her slowly.
[2016-12-03] MEDS ORDERED: BISACODYL 10 MG SUPP RECTAL STA (10:31)
[2016-12-03] MEDS: LISINOPRIL 10 MG TAB PO SCH ×2 (10:51→20:22)
--- NOTE | 2016-12-03 11:02 | P.PN ---
<Madhu Brush - Last Filed: 12/03/16 11:01> Progress Note - Text CV Surgery Nursing Principal diagnosis: Coronary artery disease, status post prior stenting to his right coronary artery. Preserved left ventricular function. Hyperlipidemia. Hypertension. ETOH abuse. POD #23 total arterial non-aortic patch off-pump double coronary artery bypass grafting using in situ skeletonized right internal mammary artery to the left anterior descending artery across the anterior midline in situ totally skeletonized left internal mammary artery to the first obtuse marginal artery. Intraoperative transesophageal echocardiogram and epi-aortic scanning. Intraoperative graft flow measurements using the [employer] system POD #23 flexible bronchoscopy with bronchial washings secondary to postoperative mucous plugging with increasing oxygen demand the night of surgery. Pt had acute hypoxic post operative respiratory failure as an unexpected post-surgical condition, related to the patient's underlying medical comorbidities. Unable to determine if ventilator associated pneumonia vs. trachobronchitis, an unexpected post-surgical condition. Sputum culture grew out Moraxella, blood cultures are negative to date, urine culture grew Klebsiella. Patient placed on Levaquin per pulmonology. Pt developed postoperative alcohol withdrawal requiring increased sedation and prolonged mechanical ventilation. Patient developed postoperative ileus, an unexpected post-surgical condition, currently resolving. Currently receiving TPN. General surgery on consult, no intervention at this time. Passed modified barium swallow NGT has been removed. He is tolerating his diet. TPN continues and calorie count in place until determination that patient is meeting caloric needs. Patient awake and alert, no distress noted, no specific complaints. Oriented 3. He is sitting up to the bedside chair. Physical therapy is otherwise bedside at the moment working with patient. Vital Signs: Afebrile Vital Signs - 24 hr 12/02/16 12/02/16 12/02/16 09:00 10:00 10:53 Temperature Pulse Rate 83 64 71 Pulse Rate [ Bilateral Radial] Respiratory 19 16 Rate Blood Pressure 119/64 99/63 O2 Sat by Pulse 95 Oximetry 12/02/16 12/02/16 12/02/16 11:00 11:03 12:00 Temperature 98.2 F Pulse Rate 69 62 67 Pulse Rate [ 65 Bilateral Radial] Respiratory 19 18 Rate Blood Pressure 117/62 100/57 O2 Sat by Pulse 94 L Oximetry 12/02/16 12/02/16 12/02/16 13:00 14:00 15:00 Temperature Pulse Rate 67 69 68 Pulse Rate [ Bilateral Radial] Respiratory 20 18 18 Rate Blood Pressure 116/64 100/59 124/78 O2 Sat by Pulse 95 Oximetry 12/02/16 12/02/16 12/02/16 15:48 16:00 16:04 Temperature 98.0 F Pulse Rate 68 72 68 Pulse Rate [ 65 Bilateral Radial] Respiratory 21 Rate Blood Pressure 112/63 O2 Sat by Pulse 93 L Oximetry 12/02/16 12/02/16 12/02/16 17:00 18:00 19:00 Temperature Pulse Rate 70 70 77 Pulse Rate [ Bilateral Radial] Respiratory 16 17 26 H Rate Blood Pressure 136/67 122/63 106/61 O2 Sat by Pulse 95 95 94 L Oximetry 12/02/16 12/02/16 12/02/16 19:09 19:31 20:00 Temperature 97.3 F L Pulse Rate 74 78 90 Pulse Rate [ Bilateral Radial] Respiratory 25 H Rate Blood Pressure 95/58 O2 Sat by Pulse 93 L Oximetry 12/02/16 12/02/16 12/02/16 21:00 22:00 23:00 Temperature Pulse Rate 74 69 66 Pulse Rate [ Bilateral Radial] Respiratory 18 14 20 Rate Blood Pressure 99/58 120/62 109/60 O2 Sat by Pulse 94 L 94 L 95 Oximetry 12/03/16 12/03/16 12/03/16 00:00 01:00 02:00 Temperature 99.1 F Pulse Rate 62 63 62 Pulse Rate [ Bilateral Radial] Respiratory 18 19 15 Rate Blood Pressure 99/57 105/64 102/61 O2 Sat by Pulse 94 L 92 L 96 Oximetry 12/03/16 12/03/16 12/03/16 03:00 04:00 05:00 This morning Temperature 98.8 F Pulse Rate 63 62 60 Pulse Rate [ Bilateral Radial] Respiratory 21 20 17 Rate Blood Pressure 98/61 172/86 104/61 O2 Sat by Pulse 96 95 94 L Oximetry 12/03/16 12/03/16 12/03/16 06:00 07:00 08:00 Temperature 98.0 F Pulse Rate 61 61 131 H Pulse Rate [ Bilateral Radial] Respiratory 15 15 20 Rate Blood Pressure 144/71 125/65 109/68 O2 Sat by Pulse 94 L 96 96 Oximetry 12/03/16 08:46 Temperature Pulse Rate 65 Pulse Rate [ Bilateral Radial] Respiratory Rate Blood Pressure O2 Sat by Pulse Oximetry Labs: Short CBC 12/03/16 Range/Units 04:00 WBC 10.5 (3.8-10.6) k/uL Hgb 8.9 L (13.0-17.5) gm/dL Hct 26.6 L (39.0-53.0) % Plt Count 365 (150-450) k/uL BMP 12/03/16 04:00 Sodium 133 L Potassium 3.7 Chloride 98 Carbon Dioxide 27 BUN 14 Creatinine 0.70 Glucose 118 H Calcium 8.1 L ABG ABG pH 7.46 (7.35-7.45) H 11/24/16 05:19 ABG pCO2 30 mmHg (35-45) L 11/24/16 05:19 ABG pO2 108 mmHg (83-108) 11/24/16 05:19 ABG O2 Saturation 99.0 % (94-97) H 11/24/16 05:19 PT/INR, D-dimer PT 12.6 sec (9.0-12.0) H 12/03/16 04:00 INR 1.3 (<1.1) 12/03/16 04:00 Microbiology 11/10/16 16:40 Lung - Right Acid Fast Bacilli Smear - Final 11/10/16 16:40 Lung - Right Acid Fast Bacilli Culture - Preliminary 11/21/16 02:00 Blood Blood Culture - Final No Growth after 144 hours 11/21/16 04:40 Sputum Gram Stain - Final 11/21/16 04:40 Sputum Sputum Culture - Final Moraxella(branhamella) catarra 11/20/16 17:44 Urine,Catheterized Urine Culture - Final Klebsiella pneumoniae 11/10/16 16:40 Lung - Right Fungal Culture - Preliminary Rhiannon tropicalis 11/10/16 16:40 Lung Aspirate - Right Gram Stain - Final 11/10/16 16:40 Lung Aspirate - Right Bronchial Washings Culture - Final IV Fluids: TPN at 40 mL per hour Heparin drip at 16 units per kilogram per hour 0.9% normal saline at 10 mL per hour Insulin drip at 6 units per hour. Lungs: Expiratory wheezes throughout, diminished bilateral bases right greater than left. Respirations are symmetrical and unlabored. O2 sat: 96% on room air. I/S: 750 mL, reviewed with the patient important of using his incentive spirometry every hour while awake. The patient did give good return demonstration on his incentive spirometry but will need a lot of assistance and coaching with it due to his generalized weakness. Heart: S1S2, regular rhythm and rate, negative for S3, gallop or murmur. Bedside telemetry showing normal sinus rhythm heart rate 65. Sternum stable to his proximal sternum, occasional clicking felt to his distal sternum near his xiphoid. Chest incision clean with dressing clean and dry. No drainage noted. His heart hugger remains in place but will need encouragement with use due to his generalized weakness. Abdomen: Soft, Positive bowel sounds present in all 4 quadrants. His last bowel movement was 12/02/2016. He denies any nausea. He is tolerating oral intake. CBGs: 109-134 mg/dL in the last 24 hours. U/O: Adequate, Tay catheter for accurate I&O. 475 mL output in the last 8 hours. 24 hr Total: Intake & Output 12/01/16 12/02/16 12/03/16 12/04/16 06:59 06:59 06:59 06:59 Intake Total 6383.218 2081.484 1749.384 117.117 Output Total 3845 2450 1925 90 Balance 2538.218 -368.516 -175.616 27.117 Weight 97.1 kg 95.8 kg 94.8 kg Active Medications Albuterol/Ipratropium (Duoneb 0.5 Mg-3 Mg/3 Ml Soln) 3 ml INHALATION RT-QID [facility] Last Admin: 12/03/16 08:44 Dose: 3 ml Albuterol/Ipratropium (Duoneb 0.5 Mg-3 Mg/3 Ml Soln) 3 ml INHALATION RT-QID PRN PRN Reason: Shortness Of Breath Or Wheezing Last Admin: 11/26/16 23:10 Dose: 3 ml Amiodarone HCl (Cordarone) 200 mg PO DAILY [facility] Last Admin: 12/02/16 08:42 Dose: 200 mg Aspirin (Aspirin) 325 mg PO DAILY [facility] Last Admin: 12/02/16 08:41 Dose: 325 mg Atorvastatin Calcium (Lipitor) 40 mg PO DAILY [facility] Last Admin: 12/02/16 08:41 Dose: 40 mg Benzocaine (Hurricaine Jud) 1 applic MUCOUS MEM QID PRN PRN Reason: Mouth Irritation Last Admin: 11/14/16 11:36 Dose: 1 applic Bisacodyl (Dulcolax) 10 mg RECTAL DAILY PRN PRN Reason: Constipation Last Admin: 11/16/16 17:18 Dose: 10 mg Budesonide (Pulmicort) 1 mg INHALATION RT-BID [facility] Last Admin: 12/03/16 08:44 Dose: 1 mg Colchicine (Colcrys) 0.6 mg PO BID PRN PRN Reason: Gout pain Last Admin: 12/02/16 01:42 Dose: 0.6 mg Digoxin (Lanoxin) 250 mcg OG-TUBE DAILY [facility] Last Admin: 12/02/16 08:41 Dose: 250 mcg Furosemide (Lasix) 20 mg IV Q12HR [facility] Last Admin: 12/02/16 21:11 Dose: 20 mg Haloperidol Lactate (Haldol) 2 mg IVP HS PRN PRN Reason: Agitation or Acute Psychosis Heparin Sodium (Porcine) (Heparin) 0 unit IV PER PROTOCOL PRN; Protocol PRN Reason: Low PTT Last Admin: 11/25/16 16:34 Dose: 2,440 unit Hydralazine HCl (Apresoline) 10 mg IVP Q4HR PRN PRN Reason: Blood Pressure - High Last Admin: 11/24/16 12:22 Dose: 10 mg Heparin Sodium/Dextrose 25,000 (unit/ IV Solution) 500 mls @ 19.98 mls/hr IV .Q24H [facility]; 10 UNITS/KG/HR PRN Reason: Protocol Last Admin: 12/03/16 05:55 Dose: 16 units/kg/hr, 31.96 mls/hr Fat Emulsion Intravenous 250 (ml/ IV Solution) 250 mls @ 21 mls/hr IV MoWeFr [facility] Last Admin: 12/02/16 16:11 Dose: 21 mls/hr Parenteral Vitamin Supplement 10 ml/ Chromium/Copper/Manganese/Seleni/Zn 1 ml/ Potassium Chloride 20 meq/Amino Ac/Electrol/Dextrose/Calcium 1,021 mls @ 40 mls /hr IV .Q24H [facility] Insulin Human Regular 100 unit (/ Sodium Chloride) 101 mls @ 0 mls/hr IV .Q0M GALINA; Per Protocol PRN Reason: Protocol Last Titration: 12/03/16 08:34 Dose: 0 ml/hr, 0 mls/hr Iron/Minerals/Multivitamins (Theragran Liquid) 15 ml PO DAILY@1200 [facility] Last Admin: 11/26/16 19:35 Dose: 15 ml Levofloxacin (Levaquin) 750 mg PO DAILY@1700 [facility] Lisinopril (Zestril) 10 mg PO BID [facility] Last Admin: 12/02/16 22:06 Dose: 10 mg Magnesium Hydroxide (Milk Of Magnesia) 2,400 mg PO BID PRN PRN Reason: Constipation Metoclopramide HCl (Reglan) 10 mg IVP Q6HR [facility] Last Admin: 12/03/16 07:06 Dose: Not Given Metoprolol Tartrate (Lopressor) 50 mg PO BID [facility] Last Admin: 12/02/16 22:06 Dose: 50 mg Miscellaneous Information (Magnesium Per Protocol) 1 each MISCELLANE DAILY PRN ; Protocol PRN Reason: Per Protocol Miscellaneous Information (Phosphorus Per Protocol) 1 each MISCELLANE DAILY PRN ; Protocol PRN Reason: Per Protocol Miscellaneous Information (Potassium Per Protocol) 1 each MISCELLANE DAILY PRN ; Protocol PRN Reason: Per Protocol Morphine Sulfate (Morphine Sulfate (Inj)) 2 mg IVP Q4H PRN PRN Reason: Severe Pain Ondansetron HCl (Zofran) 4 mg IVP Q6HR PRN PRN Reason: Nausea And Vomiting Pantoprazole Sodium (Protonix) 40 mg PO DAILY [facility] Last Admin: 12/02/16 08:41 Dose: 40 mg Potassium Chloride (K-Dur 20) 20 meq PO ONCE ONE Stop: 12/03/16 09:01 Senna/Docusate Sodium (Senokot-S) 2 each PO HS [facility] Last Admin: 12/02/16 23:57 Dose: Not Given Sertraline HCl (Zoloft) 50 mg PO DAILY [facility] Last Admin: 12/02/16 08:42 Dose: 50 mg Sodium Chloride (Saline Flush) 10 ml IV BID [facility] Last Admin: 12/02/16 21:12 Dose: 10 ml Sodium Chloride (Saline Flush) 20 ml IV Q4HR PRN PRN Reason: PICC Line Sodium Chloride (Saline Flush) 10 ml IV WEEKLY [facility] Last Admin: 12/01/16 08:52 Dose: Not Given Sodium Chloride (Saline Flush) 10 ml IV Q4HR PRN PRN Reason: PICC Line Thiamine HCl (Vitamin B-1) 100 mg PO BID [facility] Last Admin: 12/02/16 21:12 Dose: 100 mg Plan: 1. Continue ASA, Lipitor, heparin, Lopressor, lisinopril, digoxin, Lasix. 2. Continue amiodarone for atrial fibrillation prophylaxis. 3. Wean O2 as tolerated. 4. Coumadin INR today is 1.3. He received Coumadin 5 mg by mouth 1 yesterday. 5. Continue TPN for until patient able to take in enough calories. Calorie count in place. 6. Insulin/diabetic management per primary care service. 7. Continue antibiotics per pulmonology management. Positive sputum culture on 11/21/2016 for Moraxella. 8. Increase activity, out of bed to chair. Physical therapy following. 9. Daily labs, chest x-rays. Digoxin level in the a.m. 10. GI/DVT prophylaxis. 11. Potassium replacement per protocol. His potassium today was 3.7. 12. Transfer [facility]. 13. Discharge planning in process. Patient will need rehabilitation upon discharge. <Thaddeus Kessler - Last Filed: 12/03/16 14:35> Progress Note - Text The patient was seen and examined. I agree with the above assessment and plan. Mr. Gonzalez appears more alert today. He is moving all extremities and answering questions appropriately. He is currently tolerating a diet and we are keeping calorie counts. He remains on TPN which has been reduced. His INR is 1.3. He will receive 5 mg of Coumadin tonight. He remains on intravenous heparin. He is currently on antibiotics as directed by infectious disease secondary to Moraxella from his sputum. His abdomen is still slightly distended. He remains debilitated but is receiving physical therapy.
--- NOTE | 2016-12-03 11:08 | P.PN ---
Subjective Principal diagnosis: Status post CABG, postoperative day # 23 61-year-old male patient with status post carotid bypass surgery and the patient is postop day #11. The patient has failed to wean off the mechanical ventilator. Immediately postop the patient had pulmonate complications including mucous plugs and atelectasis of the left lung. He required bronchoscopy and therapeutic airway suctioning and all of the respiratory cultures came back negative. This morning, the patient was on a volume cycled assist-control mode of ventilation at the rate of 20, tidal volume 450, FiO2 of 40% and a PEEP of 5. I reviewed the blood gases and I reviewed also the chest x -ray. I noted that the patient was unable to tolerate assist-control mode. Attempts to wean him off the sedation Emily as the patient was becoming restless and a successful the mechanical ventilator. Based on this, I switched this patient to a pressure support mode of ventilation and I was able to completely wean him off sedation. He was wide awake all he was hardly able to wiggle his toes or move his fingers and he was unable to raise his had or arms against gravity. He was having copious amount of rest or secretions and he was requiring frequent suctioning. At a later stage, switch this patient to a pressure control mode of ventilation with a PEEP of 7 and a pressure control of 20 and his FiO2 was At 60%. He remains hemodynamically stable. He is producing adequate amount of urine output. No pressors at this point. No fever. No chills. Chest tubes have been all removed. He is tolerating tube feeds. Atelectatic discussion with the cardiothoracic surgeon and will plan to proceed with a PEG and trach if the patient ultimately failed weaning. 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 On 11/22/2016 the patient remains intubated on a mechanical ventilator. I was able to the sedation completely on the patient. He is awake at this point and he had been awake throughout the night. He is following simple commands. Motor functions are nearly absent. The patient is extremely weak. He can wiggle his toes and occasionally bend his knees. Otherwise he cannot raise his arms and legs against gravity. He has a cough reflex. He can blink his eyes and raises eyebrows. Reflexes are significantly diminished in the upper and lower extremities bilaterally. Is on a pressure control mode of ventilation at the rate of 18, PC 18, PEEP of 7 and FiO2 of 50%. Still having significant respiratory secretions through the orotracheal tube. The chest x-ray from today shows moderate parenchymal opacity within the left lung base and the right lung base. There is some atelectatic changes in the lung bases more so on the left. The patient has also postop changes related to coronary artery bypass surgery. No fever. No chills. Hemodynamically stable. Producing adequate amount of urine output and the patient was diuresis with a combination of albumin and Lasix. He is on tube feeds. On 11/23/2016 the patient remains on a mechanical ventilator. Seems to be much more awake compared to yesterday. Motor functions remain weak over the patient is doing more activity and movement on today's evaluation. We were able to bring the patient is sitting up position for a total of 2 hours today. He tolerated well and following that he had a coughing spells and he had to be placed in bed. He remains in the same vent setting with a pressure control of 18, PEEP of 7, FiO2 of 50% and rate of 18. Chest x-ray shows adequate expansion of the left lung with a few being in good location. Sputum analysis showed Moraxella catarrhalis and the based on that the patient was started on Levaquin. Note that he had also Klebsiella PNEUMONIA IN HIS URINE, AND BOTH OF THESE MICROORGANISMS SHOULD RESPOND TO LEVAQUIN. Meanwhile, the patient is receiving enteral feeding for nutritional support. IV Solu Medrol is been discontinued. We'll doing daily physical therapy and passive range of motion. He remains on IV heparin. He remains on IV insulin for blood sugar control. Morning blood gases showed a pH of 7.51 with a pCO2 of 26 and pO2 of 79. Weaning parameters are still poor as the patient has rapid shallow breathing index around 120 and the patient becomes tachypneic and the LOW tidal volumes. On 11/24/2016 the patient is being seen in follow-up. Earlier this morning the patient was still mechanical ventilator on a pressure control mode. Chest x- ray from earlier this morning showed no significant abnormalities. There was improvement in aeration in lung bases bilaterally especially on the left. NG tube was still in a good location below the diaphragm. Meanwhile affect abdominal film was done this morning and that showed a component of ileus. Note that overnight, the patient's tube feeds were discontinued knowing that he had 2 bouts of emesis. Nevertheless, despite ongoing gastrointestinal abnormalities, the patient is doing very well while being on mechanical ventilator and is awake and alert. We checked his weaning parameters this morning and the numbers looked very well. He was given a pressure support of 5 and PEEP of 5 and a breathing trial for a total of 30 minutes and following that we made a decision to extubate this patient. This was a difficult decision to make knowing that the patient had an underlying abdominal ileus and he is still having significant motor weakness in the upper and lower extremities. Nevertheless, I noted that his motor function is improved his cough improved and he had very decent weaning parameters. I suspected that this will be his last chance of being extubated and if not successful, he will need a PEG and trach with the next 24 hours. Based on this, I extubated this patient. He remains on IV heparin. He remains on IV insulin. He is also on Levaquin. He is afebrile. He is awake and following commands. Motor function is gradually improving. No other new complaints otherwise for now. Noted post extubation, the patient was placed on 5 L of oxygen nasal cannula with saturation of 94-95%He continued to bleed comfortably. He was placed in sitting up position in ICU. 11/25/2016, the patient is being seen in follow-up in the intensive care unit. The patient has been extubated and has been off the mechanical ventilator for the past 24 hours. He is breathing comfortably. No significant rest or distress. NG tube is in place. There is considerable amount of output from the NG tube still in the abdomen is distended although less compared to yesterday. He had colonic ileus and some dilatation of the small bowel. A rectal tube was inserted and abdomen was quite deflated. He is producing some loose liquidy bowel movements yesterday and small amounts. Rectal examination was done and the patient does not have any impacted stool. No abdominal pain. No fever. No chills. He is in sinus rhythm for the time being and stable hemodynamics. Is producing adequate amount of urine output. All of the surgical wound sites are clean and intact. Neurologically is awake. There has been obvious improvement in the motor function and the patient is talking and communicating at this point. He remains on IV heparin. He remains on IV insulin for blood sugar control. White cell count is at 15.1. Hemoglobin is stable at 8.7. On 11/26/2016, the patient is being seen in follow-up. The patient is awake. Following commands and communicating. As mentioned earlier, profoundly weak although that has been steady and slow improvement in his motor function. NG tube in place. Abdomen remains distended. Flexeril of the abdomen shows ileus both large and small bowel. No bowel functional mobility at all over the past 12 hours. The patient is on Reglan. From the pulmonary standpoint, he is calm and comfortable. No labored breathing. Actually taking well on 3 L of oxygen by nasal cannula. The chest exit from today shows stable at ectatic changes small effusion the lung bases bilaterally. NG tube in place. Output is minimal at this point. Abdomen is tender get is soft and nontender. Bowel sounds are very hypoactive. Repeat abdominal films was reviewed and there is concern of ongoing large and small bowel ileus. He is on IV heparin. Remains on IV insulin for blood sugar control. Remains nothing by mouth for the time being. No leukocytosis. Cardiac rhythm is sinus. On 11/27/2016 I'm seeing this patient in follow-up. He is awake. He is communicating. NG tube is in place. Total amount of output from the NG tube is around 250 mL over the past 24 hours. Abdomen remains distended and tympanic and bowel sounds are hypoactive. CAT scan of the abdomen that was done showed a large bowel ileus. The patient is on Reglan. The patient was started on TPN for nutritional support. The CAT scan of the chest also showed some early dehiscence in the lower surgical incision with some surrounding swelling/hematoma. There is small better pleural effusion and atelectasis in the left lung base. No fever. No chills. Still on insulin drip. Still on a heparin drip. Right upper extremity is swollen and Artline catheter needs to be removed. On 11/28/2016, patient was seen on follow-up, continues to be about the same. Continues to have nasogastric tube in place, continues to have hypoactive bowel sounds and what seems to be an ileus. Patient remains on TPN for nutritional support, ultrasound of the right upper extremity showed no evidence of DVT. Chest x-ray showed cardiomegaly and small left pleural effusion. All labs were reviewed, PTT is therapeutic. Hemoglobin is 8.8 today. Basic metabolic profile is relatively normal. On 11/29/2016, patient seems to be a bit more active, and bit more verbal, and more responsive. Denies any shortness of breath, no cough no wheezing, no chest pain, no fever, no chills, no hemoptysis. Continues to have nasogastric tube in place, and his abdomen remains a bit distended. Remains on TPN, and I would like to have the swallow evaluation done by speech therapy hoping we could place the patient on oral diet. All his labs were reviewed. Electrolytes are normal PTT therapeutic CBC is normal hemoglobin is 8.6. Patient remains on physical therapy On 11/30/2016, patient seems to be doing relatively well, about the same compared to yesterday. The main issue at this point seems to be issue of feeding, patient failed his swallow evaluation, and we would start feeding at least at a slow pace using his nasogastric tube, patient may eventually need a Dobbhoff or he may need a PEG tube placement. CBC was reviewed, hemoglobin is 8.7. Electrolytes and renal profile are normal. WBC count is 12.4. Chest x-ray showed small bilateral pleural effusions. On 12/01/2016 patient continues to slowly and gradually improve, he seems to be tolerating tube feeding well, he may have a modified barium swallow today, and if he does well may even consider taking the nasogastric tube out, and start feeding the patient. In the meantime we have been able to cut down on his TPN, and 50% of his caloric requirement is given by enteral feeding, and 50% is by TPN at present. Again were hoping we could potentially remove the nasogastric tube today. In the meantime the patient has less abdominal discomfort, he had a few bowel movements, and his GI issues seems to be improving. Labs were reviewed he had a relatively normal CBC and relatively normal basic metabolic profile. On 12/02/2016, patient is doing relatively well, improving but very slowly, remains generally weak, and he is not eating much to be able to discontinue his TPN at this point. Hence we felt it would be best to keep TPN at the high dose to meet his caloric requirements, since his oral intake is not much. His nasogastric tube was removed. Patient continues to have physical therapy at bedside. Labs today were reviewed normal CBC noted normal basic metabolic profile noted PTT is therapeutic at 54.1. Coumadin has not been restarted yet. 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 Remains on TPN, oral intake is minimal. But he is able to swallow fine. Abdomen is less distended, hence Coumadin was started today, and presently remains on heparin. Hemoglobin is 8.9 today. Basic metabolic profile is normal. WBC count is 10.5. Objective - Vital Signs Vital signs: Vital Signs Temp 98.0 F 12/03/16 08:00 Pulse 72 12/03/16 10:00 Resp 22 12/03/16 10:00 BP 101/58 12/03/16 10:00 Pulse Ox 91 L 12/03/16 10:00 Intake & Output 12/02/16 12/03/16 12/03/16 18:59 06:59 18:59 Intake Total 839.167 910.217 217.117 Output Total 630 1295 180 Balance 209.167 -384.783 37.117 Weight 95.8 kg 94.8 kg 94.8 kg Intake: IV 240 120 40 .9 NaCL 240 120 40 Intake, IV Titration 509.167 790.217 177.117 Amount Fat Emulsion 20% 250 ml 231 In Empty Bag 1 bag @ 21 mls/hr IV MoWeFr [facility] Rx#: [id number] Heparin Sodium,Porcine/ 500 D5w Pmx 25,000 unit In Dextrose/Water 1 500ml. bag @ 10 UNITS/KG/HR 19. 98 mls/hr IV .Q24H [facility] Rx #:[id number] Insulin Regular 100 unit 9.167 79.217 17.117 In Sodium Chloride 0.9% 100 ml @ Per Protocol IV .Q0M [facility] Rx#:[id number] Mvi, Adult No.4 with Vit 480 120 K 10 ml Trace (Conc-1Ml/ Dose) 1 ml Potassium Chloride 20 meq In Amino Acid 5%-D25w+Lytes*E* 1, 000 ml @ 40 mls/hr IV . Q24H [facility] Rx#:[id number] Mvi, Adult No.4 with Vit 40 K 10 ml Trace (Conc-1Ml/ Dose) 1 ml Sodium Acetate 30 meq Potassium Chloride 20 meq Calcium Gluconate 1,000 mg In Amino Acid 5%-D25w 1,000 ml @ 75 mls/hr IV . [id number] [facility] Rx#:[id number] Oral 60 Tube Feeding 30 Output: Urine 630 1295 180 Other: Voiding Method Indwelling Catheter Indwelling Catheter Indwelling Catheter # Bowel Movements 1 ABP, PAP, CO, CI - Last Documented Arterial Blood Pressure 172/58 Pulmonary Artery Pressure 46/23 Cardiac Output 6.8 Cardiac Index 3.3 - Exam Physical Exam: Revealed a 61-year-old white male, chronically ill, weak, but in no form of respiratory distress. HEENT:[Neck is supple.] [No neck masses.] [No thyromegaly.] [No JVD.] Nasogastric tube is noted to be in place. Chest: [Diminished breath sounds at the bases, no crackles, no rhonchi, no wheezes.] Cardiac Exam: [Normal S1 and S2, no S3 gallop, no murmur.] Abdomen: [Soft, nontender, no megaly, no rebound, no guarding, normal bowel sounds.] Extremities: [No clubbing, no edema, no cyanosis.] Neurological Exam: [No focal neurologic deficit.] However patient is noted to be generally weak. - Labs CBC & Chem 7: 12/03/16 04:00 12/03/16 04:00 Labs: Abnormal Lab Results - Last 24 Hours (Table) 12/02/16 12/02/16 12/02/16 Range/Units 13:20 15:59 17:05 RBC (4.30-5.90) m/uL Hgb (13.0-17.5) gm/dL Hct (39.0-53.0) % PT (9.0-12.0) sec APTT (22.0-30.0) sec Sodium (137-145) mmol/L Glucose (74-99) mg/dL POC Glucose (mg/dL) 162 H 221 H 136 H (75-99) mg/dL Calcium (8.4-10.2) mg/dL 12/02/16 12/02/16 12/02/16 Range/Units 18:13 20:10 22:08 RBC (4.30-5.90) m/uL Hgb (13.0-17.5) gm/dL Hct (39.0-53.0) % PT (9.0-12.0) sec APTT (22.0-30.0) sec Sodium (137-145) mmol/L Glucose (74-99) mg/dL POC Glucose (mg/dL) 128 H 148 H 129 H (75-99) mg/dL Calcium (8.4-10.2) mg/dL 12/02/16 12/03/16 12/03/16 Range/Units 23:55 01:07 02:08 RBC (4.30-5.90) m/uL Hgb (13.0-17.5) gm/dL Hct (39.0-53.0) % PT (9.0-12.0) sec APTT (22.0-30.0) sec Sodium (137-145) mmol/L Glucose (74-99) mg/dL POC Glucose (mg/dL) 109 H 134 H 130 H (75-99) mg/dL Calcium (8.4-10.2) mg/dL 12/03/16 12/03/16 12/03/16 Range/Units 04:00 04:00 04:00 RBC 2.78 L (4.30-5.90) m/uL Hgb 8.9 L (13.0-17.5) gm/dL Hct 26.6 L (39.0-53.0) % PT 12.6 H (9.0-12.0) sec APTT 49.6 H (22.0-30.0) sec Sodium 133 L (137-145) mmol/L Glucose 118 H (74-99) mg/dL POC Glucose (mg/dL) (75-99) mg/dL Calcium 8.1 L (8.4-10.2) mg/dL 12/03/16 12/03/16 12/03/16 Range/Units 04:09 05:53 08:33 RBC (4.30-5.90) m/uL Hgb (13.0-17.5) gm/dL Hct (39.0-53.0) % PT (9.0-12.0) sec APTT (22.0-30.0) sec Sodium (137-145) mmol/L Glucose (74-99) mg/dL POC Glucose (mg/dL) 119 H 128 H 104 H (75-99) mg/dL Calcium (8.4-10.2) mg/dL 12/03/16 Range/Units 10:12 RBC (4.30-5.90) m/uL Hgb (13.0-17.5) gm/dL Hct (39.0-53.0) % PT (9.0-12.0) sec APTT (22.0-30.0) sec Sodium (137-145) mmol/L Glucose (74-99) mg/dL POC Glucose (mg/dL) 187 H (75-99) mg/dL Calcium (8.4-10.2) mg/dL Assessment and Plan Plan: 1 Coronary artery disease status post cardiac bypass surgery and the patient is postop day # 23 2 prolonged postoperative ventilator-dependent history failure, multifactorial. Patient has extubated. Nevertheless, the active ongoing problems for now is his neuromuscular weakness and ongoing ileus. Patient has a combination of large bowel ileus as evident on the flat film the abdomen. NG tube still in place. 3 recurrent mucous plugs with excessive respiratory secretions requiring bronchoscopy and a peak airway suctioning and a bronchoscopy cultures came back negative for any microbial growth. The most recent sputum analysis showing Moraxella catarrhalis and the patient is currently on Levaquin. Chest x-ray from today is showing atelectatic changes in lung bases bilaterally. Nevertheless the patient is oxygenating well and there is no respiratory distress at this point. 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 Despite this, the patient is having a nontoxic abdomen. No abdominal tenderness. No leukocytosis. No fever. No acidosis. NG tube is in place and the patient is still nothing by mouth. 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 Doubt infection Recommendation: Continue present supportive care measures, continue TPN, continue physical therapy and occupational therapy patient obviously has a long way to go, and eventually we should consider referral to ECF. Hopefully this will happen next week. Time with Patient: Less than 30
[2016-12-03 12:43] LABS: Glucose,Whole Blood 141 mg/dL (75-99)
[2016-12-03] MEDS: METOPROLOL TARTRATE 50 MG TAB PO SCH ×2 (13:25→20:23)
[2016-12-03 16:56] LABS: Glucose,Whole Blood 148 mg/dL (75-99)
[2016-12-03] MEDS ORDERED: WARFARIN 5 MG TAB PO ONE (18:00)
[2016-12-03 18:43] LABS: Glucose,Whole Blood 157 mg/dL (75-99)
[2016-12-03] MEDS: LEVOFLOXACIN 750 MG TAB PO SCH (18:45)
[2016-12-03] MEDS: INSULIN REGULAR 100 UNIT in SODIUM CHLORIDE 0.9% 100 ML IV SCH (19:08)
[2016-12-03] MEDS: SENNOSIDES-DOCUSATE SODIUM 1 EACH TAB PO SCH (20:27)
[2016-12-03 20:30] LABS: Glucose,Whole Blood 154 mg/dL (75-99)
[2016-12-03 22:07] LABS: Glucose,Whole Blood 134 mg/dL (75-99)
[2016-12-03 23:54] LABS: Glucose,Whole Blood 116 mg/dL (75-99)
[2016-12-04 02:42] LABS: Glucose,Whole Blood 89 mg/dL (75-99)
[2016-12-04 03:54] LABS: Glucose,Whole Blood 126 mg/dL (75-99)
[2016-12-04 05:54] LABS: CH 31.9; CHCM 32.4; HCT 25.3 % (39.0-53.0); HDW 3.15; HGB 8.1 gm/dL (13.0-17.5); Hypochromasia Slight; MCH 31.9 pg (25.0-35.0); MCHC 32.1 g/dL (31.0-37.0); MCV 99.1 fL (80.0-100.0); Macrocytosis Slight; Mean Platelet Volume 7.1; RBC 2.55 m/uL (4.30-5.90)
[2016-12-04 06:05] LABS: INR 1.8 (<1.1); Partial Thromboplastin Time 63.2 sec (22.0-30.0); Prothrombin Time 17.4 sec (9.0-12.0)
[2016-12-04 06:09] LABS: Glucose,Whole Blood 126 mg/dL (75-99)
[2016-12-04 06:23] LABS: Anion Gap 7 mmol/L; Blood Urea Nitrogen 15 mg/dL (9-20); Calcium 7.9 mg/dL (8.4-10.2); Carbon Dioxide 26 mmol/L (22-30); Chloride 100 mmol/L (98-107); Digoxin 1.1 ng/mL; Glucose 125 mg/dL (74-99); Ionized Calcium 4.7 mg/dL (4.5-5.3); Magnesium 1.9 mg/dL (1.6-2.3); Non-African American GFR(MDRD) >60 (>60 ml/min/1.73 sqM); Phosphorous 3.8 mg/dL (2.5-4.5); Potassium 3.5 mmol/L (3.5-5.1); Sodium 133 mmol/L (137-145)
[2016-12-04] MEDS: METOCLOPRAMIDE 5 MG/ML 2 ML VIAL IVP SCH ×3 (07:06→16:48)
[2016-12-04] MEDS: POTASSIUM CHLORIDE ORAL LIQUID 40 MEQ/30 ML CUP NG-TUBE SCH ×2 (08:44→12:59)
[2016-12-04] MEDS: MAGNESIUM SULFATE-D5W PMX 1 GM in DEXTROSE/WATER 1 100ML.BAG IVPB SCH ×2 (08:44→12:59)
[2016-12-04] MEDS: ATORVASTATIN 40 MG TAB PO SCH (08:45)
[2016-12-04] MEDS: AMIODARONE 200 MG TAB PO SCH (08:45)
[2016-12-04] MEDS: ASPIRIN 325 MG TAB PO SCH (08:45)
[2016-12-04] MEDS: THIAMINE 100 MG TAB PO SCH ×2 (08:46→20:28)
[2016-12-04] MEDS: DIGOXIN 250 MCG TAB OG-TUBE SCH (08:46)
[2016-12-04] MEDS: METOPROLOL TARTRATE 50 MG TAB PO SCH ×2 (08:46→20:28)
[2016-12-04] MEDS: PANTOPRAZOLE 40 MG TABLET PO SCH (08:46)
[2016-12-04] MEDS: SERTRALINE 50 MG TAB PO SCH (08:46)
[2016-12-04] MEDS: FUROSEMIDE 10 MG/ML 2 ML VIAL IV SCH (08:46)
[2016-12-04 09:08] LABS: Glucose,Whole Blood 171 mg/dL (75-99)
--- NOTE | 2016-12-04 09:13 | P.PN ---
Progress Note - Text This is a 61-year-old gentleman who is status post prior to coronary bypass surgery. The patient had a prolonged stay in ICU on mechanical ventilator support. The patient was in and out atrial fibrillation with RVR. But he was converted to normal sinus mechanism 5 days ago. He is on metoprolol, amiodarone, and digoxin. He was started on Coumadin and was still given him heparin until the INR is therapeutic. From the cardiovascular standpoint overview, we'll continue the current medical treatment. The patient is feeling better slowly.
[2016-12-04] MEDS: BUDESONIDE 1 MG/2 ML NEBU INHALATION SCH ×2 (09:21→19:23)
[2016-12-04] MEDS: IPRATROPIUM-ALBUTEROL 3 ML NEB INHALATION SCH ×4 (09:21→19:23)
[2016-12-04 10:05] LABS: Glucose,Whole Blood 170 mg/dL (75-99)
--- NOTE | 2016-12-04 11:33 | P.PN ---
Subjective Principal diagnosis: Status post CABG, postoperative day # 24 61-year-old male patient with status post carotid bypass surgery and the patient is postop day #11. The patient has failed to wean off the mechanical ventilator. Immediately postop the patient had pulmonate complications including mucous plugs and atelectasis of the left lung. He required bronchoscopy and therapeutic airway suctioning and all of the respiratory cultures came back negative. This morning, the patient was on a volume cycled assist-control mode of ventilation at the rate of 20, tidal volume 450, FiO2 of 40% and a PEEP of 5. I reviewed the blood gases and I reviewed also the chest x -ray. I noted that the patient was unable to tolerate assist-control mode. Attempts to wean him off the sedation Emily as the patient was becoming restless and a successful the mechanical ventilator. Based on this, I switched this patient to a pressure support mode of ventilation and I was able to completely wean him off sedation. He was wide awake all he was hardly able to wiggle his toes or move his fingers and he was unable to raise his had or arms against gravity. He was having copious amount of rest or secretions and he was requiring frequent suctioning. At a later stage, switch this patient to a pressure control mode of ventilation with a PEEP of 7 and a pressure control of 20 and his FiO2 was At 60%. He remains hemodynamically stable. He is producing adequate amount of urine output. No pressors at this point. No fever. No chills. Chest tubes have been all removed. He is tolerating tube feeds. Atelectatic discussion with the cardiothoracic surgeon and will plan to proceed with a PEG and trach if the patient ultimately failed weaning. 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 On 11/22/2016 the patient remains intubated on a mechanical ventilator. I was able to the sedation completely on the patient. He is awake at this point and he had been awake throughout the night. He is following simple commands. Motor functions are nearly absent. The patient is extremely weak. He can wiggle his toes and occasionally bend his knees. Otherwise he cannot raise his arms and legs against gravity. He has a cough reflex. He can blink his eyes and raises eyebrows. Reflexes are significantly diminished in the upper and lower extremities bilaterally. Is on a pressure control mode of ventilation at the rate of 18, PC 18, PEEP of 7 and FiO2 of 50%. Still having significant respiratory secretions through the orotracheal tube. The chest x-ray from today shows moderate parenchymal opacity within the left lung base and the right lung base. There is some atelectatic changes in the lung bases more so on the left. The patient has also postop changes related to coronary artery bypass surgery. No fever. No chills. Hemodynamically stable. Producing adequate amount of urine output and the patient was diuresis with a combination of albumin and Lasix. He is on tube feeds. On 11/23/2016 the patient remains on a mechanical ventilator. Seems to be much more awake compared to yesterday. Motor functions remain weak over the patient is doing more activity and movement on today's evaluation. We were able to bring the patient is sitting up position for a total of 2 hours today. He tolerated well and following that he had a coughing spells and he had to be placed in bed. He remains in the same vent setting with a pressure control of 18, PEEP of 7, FiO2 of 50% and rate of 18. Chest x-ray shows adequate expansion of the left lung with a few being in good location. Sputum analysis showed Moraxella catarrhalis and the based on that the patient was started on Levaquin. Note that he had also Klebsiella PNEUMONIA IN HIS URINE, AND BOTH OF THESE MICROORGANISMS SHOULD RESPOND TO LEVAQUIN. Meanwhile, the patient is receiving enteral feeding for nutritional support. IV Solu Medrol is been discontinued. We'll doing daily physical therapy and passive range of motion. He remains on IV heparin. He remains on IV insulin for blood sugar control. Morning blood gases showed a pH of 7.51 with a pCO2 of 26 and pO2 of 79. Weaning parameters are still poor as the patient has rapid shallow breathing index around 120 and the patient becomes tachypneic and the LOW tidal volumes. On 11/24/2016 the patient is being seen in follow-up. Earlier this morning the patient was still mechanical ventilator on a pressure control mode. Chest x- ray from earlier this morning showed no significant abnormalities. There was improvement in aeration in lung bases bilaterally especially on the left. NG tube was still in a good location below the diaphragm. Meanwhile affect abdominal film was done this morning and that showed a component of ileus. Note that overnight, the patient's tube feeds were discontinued knowing that he had 2 bouts of emesis. Nevertheless, despite ongoing gastrointestinal abnormalities, the patient is doing very well while being on mechanical ventilator and is awake and alert. We checked his weaning parameters this morning and the numbers looked very well. He was given a pressure support of 5 and PEEP of 5 and a breathing trial for a total of 30 minutes and following that we made a decision to extubate this patient. This was a difficult decision to make knowing that the patient had an underlying abdominal ileus and he is still having significant motor weakness in the upper and lower extremities. Nevertheless, I noted that his motor function is improved his cough improved and he had very decent weaning parameters. I suspected that this will be his last chance of being extubated and if not successful, he will need a PEG and trach with the next 24 hours. Based on this, I extubated this patient. He remains on IV heparin. He remains on IV insulin. He is also on Levaquin. He is afebrile. He is awake and following commands. Motor function is gradually improving. No other new complaints otherwise for now. Noted post extubation, the patient was placed on 5 L of oxygen nasal cannula with saturation of 94-95%He continued to bleed comfortably. He was placed in sitting up position in ICU. 11/25/2016, the patient is being seen in follow-up in the intensive care unit. The patient has been extubated and has been off the mechanical ventilator for the past 24 hours. He is breathing comfortably. No significant rest or distress. NG tube is in place. There is considerable amount of output from the NG tube still in the abdomen is distended although less compared to yesterday. He had colonic ileus and some dilatation of the small bowel. A rectal tube was inserted and abdomen was quite deflated. He is producing some loose liquidy bowel movements yesterday and small amounts. Rectal examination was done and the patient does not have any impacted stool. No abdominal pain. No fever. No chills. He is in sinus rhythm for the time being and stable hemodynamics. Is producing adequate amount of urine output. All of the surgical wound sites are clean and intact. Neurologically is awake. There has been obvious improvement in the motor function and the patient is talking and communicating at this point. He remains on IV heparin. He remains on IV insulin for blood sugar control. White cell count is at 15.1. Hemoglobin is stable at 8.7. On 11/26/2016, the patient is being seen in follow-up. The patient is awake. Following commands and communicating. As mentioned earlier, profoundly weak although that has been steady and slow improvement in his motor function. NG tube in place. Abdomen remains distended. Flexeril of the abdomen shows ileus both large and small bowel. No bowel functional mobility at all over the past 12 hours. The patient is on Reglan. From the pulmonary standpoint, he is calm and comfortable. No labored breathing. Actually taking well on 3 L of oxygen by nasal cannula. The chest exit from today shows stable at ectatic changes small effusion the lung bases bilaterally. NG tube in place. Output is minimal at this point. Abdomen is tender get is soft and nontender. Bowel sounds are very hypoactive. Repeat abdominal films was reviewed and there is concern of ongoing large and small bowel ileus. He is on IV heparin. Remains on IV insulin for blood sugar control. Remains nothing by mouth for the time being. No leukocytosis. Cardiac rhythm is sinus. On 11/27/2016 I'm seeing this patient in follow-up. He is awake. He is communicating. NG tube is in place. Total amount of output from the NG tube is around 250 mL over the past 24 hours. Abdomen remains distended and tympanic and bowel sounds are hypoactive. CAT scan of the abdomen that was done showed a large bowel ileus. The patient is on Reglan. The patient was started on TPN for nutritional support. The CAT scan of the chest also showed some early dehiscence in the lower surgical incision with some surrounding swelling/hematoma. There is small better pleural effusion and atelectasis in the left lung base. No fever. No chills. Still on insulin drip. Still on a heparin drip. Right upper extremity is swollen and Artline catheter needs to be removed. On 11/28/2016, patient was seen on follow-up, continues to be about the same. Continues to have nasogastric tube in place, continues to have hypoactive bowel sounds and what seems to be an ileus. Patient remains on TPN for nutritional support, ultrasound of the right upper extremity showed no evidence of DVT. Chest x-ray showed cardiomegaly and small left pleural effusion. All labs were reviewed, PTT is therapeutic. Hemoglobin is 8.8 today. Basic metabolic profile is relatively normal. On 11/29/2016, patient seems to be a bit more active, and bit more verbal, and more responsive. Denies any shortness of breath, no cough no wheezing, no chest pain, no fever, no chills, no hemoptysis. Continues to have nasogastric tube in place, and his abdomen remains a bit distended. Remains on TPN, and I would like to have the swallow evaluation done by speech therapy hoping we could place the patient on oral diet. All his labs were reviewed. Electrolytes are normal PTT therapeutic CBC is normal hemoglobin is 8.6. Patient remains on physical therapy On 11/30/2016, patient seems to be doing relatively well, about the same compared to yesterday. The main issue at this point seems to be issue of feeding, patient failed his swallow evaluation, and we would start feeding at least at a slow pace using his nasogastric tube, patient may eventually need a Dobbhoff or he may need a PEG tube placement. CBC was reviewed, hemoglobin is 8.7. Electrolytes and renal profile are normal. WBC count is 12.4. Chest x-ray showed small bilateral pleural effusions. On 12/01/2016 patient continues to slowly and gradually improve, he seems to be tolerating tube feeding well, he may have a modified barium swallow today, and if he does well may even consider taking the nasogastric tube out, and start feeding the patient. In the meantime we have been able to cut down on his TPN, and 50% of his caloric requirement is given by enteral feeding, and 50% is by TPN at present. Again were hoping we could potentially remove the nasogastric tube today. In the meantime the patient has less abdominal discomfort, he had a few bowel movements, and his GI issues seems to be improving. Labs were reviewed he had a relatively normal CBC and relatively normal basic metabolic profile. On 12/02/2016, patient is doing relatively well, improving but very slowly, remains generally weak, and he is not eating much to be able to discontinue his TPN at this point. Hence we felt it would be best to keep TPN at the high dose to meet his caloric requirements, since his oral intake is not much. His nasogastric tube was removed. Patient continues to have physical therapy at bedside. Labs today were reviewed normal CBC noted normal basic metabolic profile noted PTT is therapeutic at 54.1. Coumadin has not been restarted yet. On 12/03/2016, no major casino change attendant the last 24 hours, patient seems to be more and more awake, however he remained generally weak. Remains on TPN, oral intake is minimal. But he is able to swallow fine. Abdomen is less distended, hence Coumadin was started today, and presently remains on heparin. Hemoglobin is 8.9 today. Basic metabolic profile is normal. WBC count is 10.5. On 12/04/2016, patient is basically about the same, his oral intake seems to be a bit better and picking up a bit more. But still not enough to discontinue TPN at this point yet. Patient is almost therapeutic on Coumadin, but not quite yet. No abdominal pain, no shortness of breath, no cough, no wheezing. Patient remains generally weak. Labs were reviewed hemoglobin is 8.1 INR is 1.8 basic metabolic profile is relatively normal except for slightly low potassium of 3.5. Objective - Vital Signs Vital signs: Vital Signs Temp 98.1 F 12/04/16 08:00 Pulse 69 12/04/16 10:00 Resp 18 12/04/16 10:00 BP 102/61 12/04/16 10:00 Pulse Ox 98 12/04/16 10:00 Intake & Output 12/03/16 12/04/16 12/04/16 18:59 06:59 18:59 Intake Total 468.762 4122.664 280 Output Total 805 723 555 Balance -107.034 383.664 -275 Weight 94.8 kg 94.2 kg 94.2 kg Intake: IV 120 120 40 .9 NaCL 120 120 40 Intake, IV Titration 577.966 986.664 240 Amount Fat Emulsion 20% 250 ml 80 In Empty Bag 1 bag @ 21 mls/hr IV MoWeFr [facility] Rx#: [id number] Heparin Sodium,Porcine/ 461.822 D5w Pmx 25,000 unit In Dextrose/Water 1 500ml. bag @ 10 UNITS/KG/HR 19. 98 mls/hr IV .Q24H [facility] Rx #:[id number] Insulin Regular 100 unit 57.966 44.842 In Sodium Chloride 0.9% 100 ml @ Per Protocol IV .Q0M [facility] Rx#:[id number] Magnesium Sulfate-D5w Pmx 200 1 gm In Dextrose/Water 1 100ml.bag @ 100 mls/hr IVPB Q1H [facility] Rx#: [id number] Mvi, Adult No.4 with Vit 400 480 40 K 10 ml Trace (Conc-1Ml/ Dose) 1 ml Potassium Chloride 20 meq In Amino Acid 5%-D25w+Lytes*E* 1, 000 ml @ 40 mls/hr IV . Q24H [facility] Rx#:[id number] Mvi, Adult No.4 with Vit 40 K 10 ml Trace (Conc-1Ml/ Dose) 1 ml Sodium Acetate 30 meq Potassium Chloride 20 meq Calcium Gluconate 1,000 mg In Amino Acid 5%-D25w 1,000 ml @ 75 mls/hr IV . [id number] [facility] Rx#:[id number] Output: Urine 805 723 555 Other: Voiding Method Indwelling Catheter Indwelling Catheter Indwelling Catheter # Bowel Movements 2 ABP, PAP, CO, CI - Last Documented Arterial Blood Pressure 172/58 Pulmonary Artery Pressure 46/23 Cardiac Output 6.8 Cardiac Index 3.3 - Exam Physical Exam: Revealed a 61-year-old white male, chronically ill, weak, but in no form of respiratory distress. HEENT:[Neck is supple.] [No neck masses.] [No thyromegaly.] [No JVD.] Nasogastric tube is noted to be in place. Chest: [Diminished breath sounds at the bases, no crackles, no rhonchi, no wheezes.] Cardiac Exam: [Normal S1 and S2, no S3 gallop, no murmur.] Abdomen: [Soft, nontender, no megaly, no rebound, no guarding, normal bowel sounds.] Extremities: [No clubbing, no edema, no cyanosis.] Neurological Exam: [No focal neurologic deficit.] However patient is noted to be generally weak. - Labs CBC & Chem 7: 12/04/16 05:40 12/04/16 05:10 Labs: Abnormal Lab Results - Last 24 Hours (Table) 12/03/16 12/03/16 12/03/16 Range/Units 12:42 16:54 18:41 RBC (4.30-5.90) m/uL Hgb (13.0-17.5) gm/dL Hct (39.0-53.0) % PT (9.0-12.0) sec APTT (22.0-30.0) sec Sodium (137-145) mmol/L Glucose (74-99) mg/dL POC Glucose (mg/dL) 141 H 148 H 157 H (75-99) mg/dL Calcium (8.4-10.2) mg/dL 12/03/16 12/03/16 12/03/16 Range/Units 20:12 22:04 23:49 RBC (4.30-5.90) m/uL Hgb (13.0-17.5) gm/dL Hct (39.0-53.0) % PT (9.0-12.0) sec APTT (22.0-30.0) sec Sodium (137-145) mmol/L Glucose (74-99) mg/dL POC Glucose (mg/dL) 154 H 134 H 116 H (75-99) mg/dL Calcium (8.4-10.2) mg/dL 12/04/16 12/04/16 12/04/16 Range/Units 03:51 05:10 05:40 RBC (4.30-5.90) m/uL Hgb (13.0-17.5) gm/dL Hct (39.0-53.0) % PT 17.4 H (9.0-12.0) sec APTT 63.2 H (22.0-30.0) sec Sodium 133 L (137-145) mmol/L Glucose 125 H (74-99) mg/dL POC Glucose (mg/dL) 126 H (75-99) mg/dL Calcium 7.9 L (8.4-10.2) mg/dL 12/04/16 12/04/16 12/04/16 Range/Units 05:40 05:57 09:05 RBC 2.55 L (4.30-5.90) m/uL Hgb 8.1 L (13.0-17.5) gm/dL Hct 25.3 L (39.0-53.0) % PT (9.0-12.0) sec APTT (22.0-30.0) sec Sodium (137-145) mmol/L Glucose (74-99) mg/dL POC Glucose (mg/dL) 126 H 171 H (75-99) mg/dL Calcium (8.4-10.2) mg/dL 12/04/16 Range/Units 10:02 RBC (4.30-5.90) m/uL Hgb (13.0-17.5) gm/dL Hct (39.0-53.0) % PT (9.0-12.0) sec APTT (22.0-30.0) sec Sodium (137-145) mmol/L Glucose (74-99) mg/dL POC Glucose (mg/dL) 170 H (75-99) mg/dL Calcium (8.4-10.2) mg/dL Assessment and Plan Plan: 1 Coronary artery disease status post cardiac bypass surgery and the patient is postop day # 24 2 prolonged postoperative ventilator-dependent history failure, multifactorial. Patient has extubated. Nevertheless, the active ongoing problems for now is his neuromuscular weakness and ongoing ileus. Patient has a combination of large bowel ileus as evident on the flat film the abdomen. NG tube still in place. 3 recurrent mucous plugs with excessive respiratory secretions requiring bronchoscopy and a peak airway suctioning and a bronchoscopy cultures came back negative for any microbial growth. The most recent sputum analysis showing Moraxella catarrhalis and the patient is currently on Levaquin. Chest x-ray from today is showing atelectatic changes in lung bases bilaterally. Nevertheless the patient is oxygenating well and there is no respiratory distress at this point. 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 Despite this, the patient is having a nontoxic abdomen. No abdominal tenderness. No leukocytosis. No fever. No acidosis. NG tube is in place and the patient is still nothing by mouth. 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 Doubt infection Recommendation: Continue present supportive care measures, continue TPN, continue physical therapy and occupational therapy patient obviously has a long way to go, and eventually we should consider referral to [facility]CF. Hopefully this will happen next week. Time with Patient: Less than 30
--- NOTE | 2016-12-04 11:56 | P.PN ---
<Madhu Brush - Last Filed: 12/04/16 11:41> Progress Note - Text CV Surgery Nursing Principal diagnosis: Coronary artery disease, status post prior stenting to his right coronary artery. Preserved left ventricular function. Hyperlipidemia. Hypertension. ETOH abuse. POD #23 total arterial non-aortic patch off-pump double coronary artery bypass grafting using in situ skeletonized right internal mammary artery to the left anterior descending artery across the anterior midline in situ totally skeletonized left internal mammary artery to the first obtuse marginal artery. Intraoperative transesophageal echocardiogram and epi-aortic scanning. Intraoperative graft flow measurements using the Medist[employer] system POD #23 flexible bronchoscopy with bronchial washings secondary to postoperative mucous plugging with increasing oxygen demand the night of surgery. Pt had acute hypoxic post operative respiratory failure as an unexpected post-surgical condition, related to the patient's underlying medical comorbidities. Unable to determine if ventilator associated pneumonia vs. trachobronchitis, an unexpected post-surgical condition. Sputum culture grew out Moraxella, blood cultures are negative to date, urine culture grew Klebsiella. Patient placed on Levaquin per pulmonology. Pt developed postoperative alcohol withdrawal requiring increased sedation and prolonged mechanical ventilation. Patient developed postoperative ileus, an unexpected post-surgical condition, currently resolving. Currently receiving TPN. General surgery on consult, no intervention at this time. Passed modified barium swallow NGT has been removed. He is tolerating his diet. TPN continues and calorie count in place until determination that patient is meeting caloric needs. Patient awake and alert, no distress noted, no specific complaints. He is sitting up to bedside chair. Physical therapy worked with the patient this a.m. and the patient was able to stand at his bedside. Vital Signs: Afebrile Vital Signs - 24 hr 12/03/16 12/03/16 12/03/16 12:00 13:00 14:00 Temperature 98.1 F Pulse Rate 67 75 73 Pulse Rate [ 65 Bilateral Radial] Respiratory 16 19 17 Rate Blood Pressure 82/49 149/68 124/68 O2 Sat by Pulse 97 93 L 95 Oximetry 12/03/16 12/03/16 12/03/16 15:00 15:28 15:37 Temperature Pulse Rate 81 73 71 Pulse Rate [ Bilateral Radial] Respiratory 22 Rate Blood Pressure 111/56 O2 Sat by Pulse 95 Oximetry 12/03/16 12/03/16 12/03/16 16:00 17:00 18:00 Temperature Pulse Rate 71 75 71 Pulse Rate [ 65 Bilateral Radial] Respiratory 16 16 18 Rate Blood Pressure 105/57 125/55 143/69 O2 Sat by Pulse 96 94 L 95 Oximetry 12/03/16 12/03/16 12/03/16 19:00 19:37 19:51 Temperature Pulse Rate 63 60 61 Pulse Rate [ Bilateral Radial] Respiratory 16 Rate Blood Pressure 109/59 O2 Sat by Pulse 98 Oximetry 12/03/16 12/03/16 12/03/16 20:00 21:00 22:00 Temperature 99.5 F Pulse Rate 62 61 57 L Pulse Rate [ Bilateral Radial] Respiratory 15 14 15 Rate Blood Pressure 102/59 98/56 86/48 O2 Sat by Pulse 96 98 97 Oximetry 12/03/16 12/04/16 12/04/16 23:00 00:00 01:00 Temperature 99.5 F Pulse Rate 55 L 55 L 56 L Pulse Rate [ Bilateral Radial] Respiratory 18 14 15 Rate Blood Pressure 82/50 85/50 99/62 O2 Sat by Pulse 96 96 96 Oximetry 12/04/16 12/04/16 12/04/16 02:00 03:00 04:00 Temperature 99.5 F Pulse Rate 56 L 61 58 L Pulse Rate [ Bilateral Radial] Respiratory 13 21 13 Rate Blood Pressure 96/55 120/68 99/48 O2 Sat by Pulse 95 94 L 92 L Oximetry 12/04/16 12/04/16 12/04/16 05:00 06:00 07:00 Temperature Pulse Rate 58 L 57 L 58 L Pulse Rate [ Bilateral Radial] Respiratory 13 14 13 Rate Blood Pressure 87/42 87/48 111/52 O2 Sat by Pulse 96 95 95 Oximetry 12/04/16 12/04/16 12/04/16 08:00 09:00 09:22 Temperature 98.1 F Pulse Rate 67 69 79 Pulse Rate [ Bilateral Radial] Respiratory 19 18 Rate Blood Pressure 111/52 114/66 O2 Sat by Pulse 97 98 Oximetry 12/04/16 12/04/16 09:30 10:00 Temperature Pulse Rate 70 69 Pulse Rate [ Bilateral Radial] Respiratory 18 Rate Blood Pressure 102/61 O2 Sat by Pulse 98 Oximetry Labs: Short CBC 12/04/16 Range/Units 05:40 WBC 8.0 (3.8-10.6) k/uL Hgb 8.1 L (13.0-17.5) gm/dL Hct 25.3 L (39.0-53.0) % Plt Count 308 (150-450) k/uL BMP 12/04/16 05:10 Sodium 133 L Potassium 3.5 Chloride 100 Carbon Dioxide 26 BUN 15 Creatinine 0.80 Glucose 125 H Calcium 7.9 L ABG ABG pH 7.46 (7.35-7.45) H 11/24/16 05:19 ABG pCO2 30 mmHg (35-45) L 11/24/16 05:19 ABG pO2 108 mmHg (83-108) 11/24/16 05:19 ABG O2 Saturation 99.0 % (94-97) H 11/24/16 05:19 PT/INR, D-dimer PT 17.4 sec (9.0-12.0) H 12/04/16 05:40 INR 1.8 (<1.1) 12/04/16 05:40 Microbiology 11/10/16 16:40 Lung - Right Acid Fast Bacilli Smear - Final 11/10/16 16:40 Lung - Right Acid Fast Bacilli Culture - Preliminary 11/21/16 02:00 Blood Blood Culture - Final No Growth after 144 hours 11/21/16 04:40 Sputum Gram Stain - Final 11/21/16 04:40 Sputum Sputum Culture - Final Moraxella(branhamella) catarra 11/20/16 17:44 Urine,Catheterized Urine Culture - Final Klebsiella pneumoniae 11/10/16 16:40 Lung - Right Fungal Culture - Preliminary Rhiannon tropicalis 11/10/16 16:40 Lung Aspirate - Right Gram Stain - Final 11/10/16 16:40 Lung Aspirate - Right Bronchial Washings Culture - Final IV Fluids: 0.9% normal saline at 10 mL per hour TPN at 40 mL per hour Heparin drip at 16 units per kilogram per hour Insulin drip at 7.5 units per hour. Lungs: Essentially clear throughout, diminished bilateral bases. Respirations are symmetrical and unlabored. O2 sat: 98% on room air. I/S: 600 mL, reviewed with the patient important of using his incentive spirometry every hour while awake. The patient did give a good return demonstration on his incentive spirometry but will need lots of encouragement and assistance in using it due to his generalized weakness. Heart: S1S2, regular rhythm and rate, negative for S3, gallop or murmur. Bedside telemetry showing sinus bradycardia heart rate 59. Sternum stable to his proximal sternum, occasional clicking felt to his distal sternum near his xiphoid. Chest incision clean with dressing clean and dry. No drainage noted. His heart hugger remains in place but will need encouragement with use due to his generalized weakness. Knee-high CZEAR hose and sequential compression devices in place to bilateral lower extremities. Abdomen: Soft and distended. Positive tympanic bowel sounds present in all 4 quadrants. Positive bowel movement 3 yesterday 12/03/2016. Patient tolerating oral intake without difficulty. Denies any complaints of nausea or vomiting. CBGs: 116-170 mg/dL in the last 24 hours. U/O: Adequate, Tay catheter for accurate I&O. 24 hr Total: Intake & Output 12/02/16 12/03/16 12/04/16 12/05/16 06:59 06:59 06:59 06:59 Intake Total 2081.484 9150.932 4621.630 280 Output Total 2450 1925 1528 555 Balance -368.516 -175.616 276.630 -275 Weight 95.8 kg 94.8 kg 94.2 kg 94.2 kg Active Medications Albuterol/Ipratropium (Duoneb 0.5 Mg-3 Mg/3 Ml Soln) 3 ml INHALATION RT-QID [facility] Last Admin: 12/04/16 11:38 Dose: Not Given Albuterol/Ipratropium (Duoneb 0.5 Mg-3 Mg/3 Ml Soln) 3 ml INHALATION RT-QID PRN PRN Reason: Shortness Of Breath Or Wheezing Last Admin: 11/26/16 23:10 Dose: 3 ml Amiodarone HCl (Cordarone) 200 mg PO DAILY [facility] Last Admin: 12/04/16 08:45 Dose: 200 mg Aspirin (Aspirin) 325 mg PO DAILY [facility] Last Admin: 12/04/16 08:45 Dose: 325 mg Atorvastatin Calcium (Lipitor) 40 mg PO DAILY [facility] Last Admin: 12/04/16 08:45 Dose: 40 mg Benzocaine (Hurricaine [place]) 1 applic MUCOUS MEM QID PRN PRN Reason: Mouth Irritation Last Admin: 11/14/16 11:36 Dose: 1 applic Bisacodyl (Dulcolax) 10 mg RECTAL DAILY PRN PRN Reason: Constipation Last Admin: 11/16/16 17:18 Dose: 10 mg Budesonide (Pulmicort) 1 mg INHALATION RT-BID [facility] Last Admin: 12/04/16 09:21 Dose: 1 mg Colchicine (Colcrys) 0.6 mg PO BID PRN PRN Reason: Gout pain Last Admin: 12/02/16 01:42 Dose: 0.6 mg Digoxin (Lanoxin) 250 mcg OG-TUBE DAILY [facility] Last Admin: 12/04/16 08:46 Dose: 250 mcg Furosemide (Lasix) 20 mg IV Q12HR [facility] Last Admin: 12/04/16 08:46 Dose: 20 mg Haloperidol Lactate (Haldol) 2 mg IVP HS PRN PRN Reason: Agitation or Acute Psychosis Heparin Sodium (Porcine) (Heparin) 0 unit IV PER PROTOCOL PRN; Protocol PRN Reason: Low PTT Last Admin: 11/25/16 16:34 Dose: 2,440 unit Hydralazine HCl (Apresoline) 10 mg IVP Q4HR PRN PRN Reason: Blood Pressure - High Last Admin: 11/24/16 12:22 Dose: 10 mg Heparin Sodium/Dextrose 25,000 (unit/ IV Solution) 500 mls @ 19.98 mls/hr IV .Q24H [facility]; 10 UNITS/KG/HR PRN Reason: Protocol Last Admin: 12/03/16 20:22 Dose: 16 units/kg/hr, 31.96 mls/hr Fat Emulsion Intravenous 250 (ml/ IV Solution) 250 mls @ 21 mls/hr IV MoWeFr [facility] Last Admin: 12/02/16 16:11 Dose: 21 mls/hr Insulin Human Regular 100 unit (/ Sodium Chloride) 101 mls @ 0 mls/hr IV .Q0M [facility]; Per Protocol PRN Reason: Protocol Last Titration: 12/04/16 03:53 Dose: 5.5 ml/hr, 5.5 mls/hr Parenteral Vitamin Supplement 10 ml/ Chromium/Copper/Manganese/Seleni/Zn 1 ml/ Potassium Chloride 40 meq/Sodium Chloride 20 meq/ Amino Ac/Electrol/Dextrose/ Calcium 1,036 mls @ 40 mls/hr IV .Q24H [facility] Iron/Minerals/Multivitamins (Theragran Liquid) 15 ml PO DAILY@1200 [facility] Last Admin: 11/26/16 19:35 Dose: 15 ml Levofloxacin (Levaquin) 750 mg PO DAILY@1700 [facility] Last Admin: 12/03/16 18:45 Dose: 750 mg Lisinopril (Zestril) 10 mg PO BID [facility] Last Admin: 12/03/16 20:22 Dose: 10 mg Magnesium Hydroxide (Milk Of Magnesia) 2,400 mg PO BID PRN PRN Reason: Constipation Metoclopramide HCl (Reglan) 10 mg IVP Q6HR [facility] Last Admin: 12/04/16 07:06 Dose: 10 mg Metoprolol Tartrate (Lopressor) 50 mg PO BID [facility] Last Admin: 12/04/16 08:46 Dose: 50 mg Miscellaneous Information (Magnesium Per Protocol) 1 each MISCELLANE DAILY PRN ; Protocol PRN Reason: Per Protocol Miscellaneous Information (Phosphorus Per Protocol) 1 each MISCELLANE DAILY PRN ; Protocol PRN Reason: Per Protocol Miscellaneous Information (Potassium Per Protocol) 1 each MISCELLANE DAILY PRN ; Protocol PRN Reason: Per Protocol Morphine Sulfate (Morphine Sulfate (Inj)) 2 mg IVP Q4H PRN PRN Reason: Severe Pain Ondansetron HCl (Zofran) 4 mg IVP Q6HR PRN PRN Reason: Nausea And Vomiting Pantoprazole Sodium (Protonix) 40 mg PO DAILY [facility] Last Admin: 12/04/16 08:46 Dose: 40 mg Senna/Docusate Sodium (Senokot-S) 2 each PO HS [facility] Last Admin: 12/03/16 20:27 Dose: 2 each Sertraline HCl (Zoloft) 50 mg PO DAILY [facility] Last Admin: 12/04/16 08:46 Dose: 50 mg Sodium Chloride (Saline Flush) 10 ml IV BID [facility] Last Admin: 12/04/16 08:46 Dose: Not Given Sodium Chloride (Saline Flush) 20 ml IV Q4HR PRN PRN Reason: PICC Line Sodium Chloride (Saline Flush) 10 ml IV WEEKLY [facility] Last Admin: 12/01/16 08:52 Dose: Not Given Sodium Chloride (Saline Flush) 10 ml IV Q4HR PRN PRN Reason: PICC Line Thiamine HCl (Vitamin B-1) 100 mg PO BID [facility] Last Admin: 12/04/16 08:46 Dose: 100 mg Plan: 1. Continue ASA, Lipitor, heparin, Lopressor, lisinopril, digoxin (digoxin level was 1.1), Lasix. 2. Continue amiodarone for atrial fibrillation prophylaxis. 3. Wean O2 as tolerated. 4. Coumadin 5 mg by mouth today for INR today is 1.8. He received Coumadin 5 mg by mouth 1 yesterday. 5. Continue TPN for until patient able to take in enough calories. Calorie count in place. 6. Insulin/diabetic management per primary care service. 7. Continue antibiotics per pulmonology management. Positive sputum culture on 11/21/2016 for Moraxella. 8. Increase activity, out of bed to chair. Physical therapy following. 9. Daily labs, chest x-rays. 10. GI/DVT prophylaxis. 11. Potassium replacement per protocol. His potassium today was 3.5. 12. Tay catheter will be removed in the a.m., may place a condom catheter if needed. 13. Transfer to [facility] soon. 14. Discharge planning in process. Patient will need rehabilitation upon discharge. <Thaddeus Kessler - Last Filed: 12/04/16 15:54> Progress Note - Text The patient was seen and examined.I agree with the above assessment and plan. Overall he appears more alert. He continues to increase his oral intake and is still inadequate. Her remains on TPN for supplementation. INR today is 1.8. 5 mg of Coumadin will be given tonight. His intravenous heparin was discontinued. He remains on antibiotics as directed by infectious disease. Tay catheter will be removed and transitioned to a condom catheter. We'll decrease his Lasix. He is still debilitated and is receiving physical therapy. Evaluation for inpatient rehab has been ordered.
[2016-12-04] MEDS: LISINOPRIL 10 MG TAB PO SCH ×2 (13:00→22:03)
[2016-12-04] MEDS: MVI, ADULT NO.4 WITH VIT K 10 ML, TRACE (CONC-1ML/DOSE) 1 ML, POTASSIUM CHLORIDE 20 MEQ... IV SCH ×4 (13:00)
[2016-12-04 13:05] LABS: Glucose,Whole Blood 104 mg/dL (75-99)
[2016-12-04] MEDS: MVI, ADULT NO.4 WITH VIT K 10 ML, TRACE (CONC-1ML/DOSE) 1 ML, POTASSIUM CHLORIDE 40 MEQ... IV SCH ×5 (13:43)
[2016-12-04 14:22] LABS: Glucose,Whole Blood 134 mg/dL (75-99)
[2016-12-04] MEDS: INSULIN REGULAR 100 UNIT in SODIUM CHLORIDE 0.9% 100 ML IV SCH (15:30)
[2016-12-04 16:06] LABS: Glucose,Whole Blood 144 mg/dL (75-99)
[2016-12-04] MEDS: LEVOFLOXACIN 750 MG TAB PO SCH (16:47)
[2016-12-04] MEDS ORDERED: WARFARIN 5 MG TAB PO ONE (18:00)
[2016-12-04 18:22] LABS: Glucose,Whole Blood 114 mg/dL (75-99)
[2016-12-04 20:04] LABS: Glucose,Whole Blood 146 mg/dL (75-99)
[2016-12-04] MEDS: SENNOSIDES-DOCUSATE SODIUM 1 EACH TAB PO SCH (20:28)
[2016-12-04 22:11] LABS: Glucose,Whole Blood 151 mg/dL (75-99)
[2016-12-05 00:13] LABS: Glucose,Whole Blood 128 mg/dL (75-99)
[2016-12-05] MEDS: METOCLOPRAMIDE 5 MG/ML 2 ML VIAL IVP SCH ×4 (00:21→17:07)
[2016-12-05 02:10] LABS: Glucose,Whole Blood 118 mg/dL (75-99)
[2016-12-05 03:07] LABS: Glucose,Whole Blood 104 mg/dL (75-99)
[2016-12-05 04:04] LABS: Glucose,Whole Blood 101 mg/dL (75-99)
[2016-12-05 04:50] LABS: CH 31.7; CHCM 32.7; HCT 25.7 % (39.0-53.0); HDW 3.14; HGB 8.3 gm/dL (13.0-17.5); Hypochromasia Slight; MCH 31.5 pg (25.0-35.0); MCHC 32.3 g/dL (31.0-37.0); MCV 97.5 fL (80.0-100.0); RBC 2.63 m/uL (4.30-5.90); RDW 14.9 % (11.5-15.5)
[2016-12-05 05:10] LABS: Anion Gap 4 mmol/L; Blood Urea Nitrogen 16 mg/dL (9-20); Calcium 8.1 mg/dL (8.4-10.2); Carbon Dioxide 27 mmol/L (22-30); Chloride 103 mmol/L (98-107); Glucose 86 mg/dL (74-99); Magnesium 2.1 mg/dL (1.6-2.3); Non-African American GFR(MDRD) >60 (>60 ml/min/1.73 sqM); Phosphorous 3.2 mg/dL (2.5-4.5); Potassium 4.5 mmol/L (3.5-5.1); Sodium 134 mmol/L (137-145)
[2016-12-05 06:01] LABS: Glucose,Whole Blood 117 mg/dL (75-99)
[2016-12-05 07:12] LABS: INR 2.7 (<1.1); Prothrombin Time 26.1 sec (9.0-12.0)
[2016-12-05] MEDS ORDERED: HYDROcodone/APAP 5-325MG 1 EACH TAB PO PRN ×2 (07:50)
[2016-12-05 08:00] LABS: Glucose,Whole Blood 117 mg/dL (75-99)
[2016-12-05] MEDS: METOPROLOL TARTRATE 50 MG TAB PO SCH ×2 (08:23→20:24)
[2016-12-05] MEDS: ASPIRIN 325 MG TAB PO SCH (08:23)
[2016-12-05] MEDS: LISINOPRIL 10 MG TAB PO SCH ×2 (08:23→20:24)
[2016-12-05] MEDS: DIGOXIN 250 MCG TAB OG-TUBE SCH (08:24)
[2016-12-05] MEDS: ATORVASTATIN 40 MG TAB PO SCH (08:24)
[2016-12-05] MEDS: PANTOPRAZOLE 40 MG TABLET PO SCH (08:24)
[2016-12-05] MEDS: AMIODARONE 200 MG TAB PO SCH (08:24)
[2016-12-05] MEDS: THIAMINE 100 MG TAB PO SCH ×2 (08:24→20:24)
[2016-12-05] MEDS: SERTRALINE 50 MG TAB PO SCH (08:24)
[2016-12-05] MEDS: FUROSEMIDE 10 MG/ML 2 ML VIAL IV SCH (08:24)
[2016-12-05] MEDS: BUDESONIDE 1 MG/2 ML NEBU INHALATION SCH (08:41)
[2016-12-05] MEDS: IPRATROPIUM-ALBUTEROL 3 ML NEB INHALATION SCH ×4 (08:42→21:50)
--- NOTE | 2016-12-05 09:05 | P.PN ---
Subjective Principal diagnosis: Coronary artery disease, status post prior stenting to his right coronary artery. Preserved left ventricular function. Hyperlipidemia. Hypertension. ETOH abuse. POD #26 total arterial non-aortic patch off-pump double coronary artery bypass grafting using in situ skeletonized right internal mammary artery to the left anterior descending artery across the anterior midline in situ totally skeletonized left internal mammary artery to the first obtuse marginal artery. Intraoperative transesophageal echocardiogram and epi-aortic scanning. Intraoperative graft flow measurements using the [employer]im system POD #26 flexible bronchoscopy with bronchial washings secondary to postoperative mucous plugging with increasing oxygen demand the night of surgery. Pt had acute hypoxic post operative respiratory failure as an unexpected post-surgical condition, related to the patient's underlying medical comorbidities. Unable to determine if ventilator associated pneumonia vs. trachobronchitis, an unexpected post-surgical condition. Sputum culture grew out Moraxella, blood cultures are negative to date, urine culture grew Klebsiella. Patient placed on Levaquin per pulmonology. Pt developed postoperative alcohol withdrawal requiring increased sedation and prolonged mechanical ventilation. Patient developed postoperative ileus, an unexpected post-surgical condition, currently resolving. Currently receiving TPN. General surgery and consult, no intervention at this time. Passed modified barium swallow yesterday. NGT removed. Placed on diet. TPN continues and calorie count in place until determination that patient is meeting caloric needs. Patient currently sitting up in cardiac chair in no apparent distress. States feeling better everyday. Just had Tay catheter removed, due to void. Objective - Vital Signs Vital signs: Vital Signs Temp 97.7 F 12/04/16 20:00 Pulse 57 L 12/05/16 04:00 Resp 15 12/05/16 04:00 BP 108/57 12/05/16 04:00 Pulse Ox 96 12/05/16 04:00 Intake & Output 12/04/16 12/05/16 12/05/16 18:59 06:59 18:59 Intake Total 412.108 210.175 Output Total 845 985 Balance -432.892 -774.825 Weight 94.2 kg 95.8 kg Intake: IV 100 170 .9 NaCL 100 170 Intake, IV Titration 312.108 40.175 Amount Insulin Regular 100 unit 72.108 40.175 In Sodium Chloride 0.9% 100 ml @ Per Protocol IV .Q0M [facility] Rx#:[id number] Magnesium Sulfate-D5w Pmx 200 1 gm In Dextrose/Water 1 100ml.bag @ 100 mls/hr IVPB Q1H [facility] Rx#: [id number] Mvi, Adult No.4 with Vit 40 K 10 ml Trace (Conc-1Ml/ Dose) 1 ml Potassium Chloride 20 meq In Amino Acid 5%-D25w+Lytes*E* 1, 000 ml @ 40 mls/hr IV . Q24H [facility] Rx#:[id number] Output: Urine 845 985 Other: Voiding Method Indwelling Catheter Indwelling Catheter # Bowel Movements 1 ABP, PAP, CO, CI - Last Documented Arterial Blood Pressure 172/58 Pulmonary Artery Pressure 46/23 Cardiac Output 6.8 Cardiac Index 3.3 - Constitutional General appearance: Present: cooperative, no acute distress - Respiratory Details: Lungs sounds diminished bilaterally. Respirations even, nonlabored. Currently on room air with oxygen saturation 96%. Effective cough. - Cardiovascular Details: S1, S2 present. Regular rate and rhythm, normal sinus rhythm on telemetry. Trace bilateral lower extremity edema still present. Sternum stable superiorly , movable inferiorly. Heart hugger in place with patient beginning to demonstrate appropriate use. Teds/SCDs present. - Gastrointestinal Gastrointestinal Comment(s): Abdomen soft, nontender, slightly distended. Active bowel sounds 4 quadrants. Stooling daily. Tolerating diet. - Genitourinary Genitourinary Comment(s): Tay DC'd at 5 AM. Due to void. Urinal at bedside. - Integumentary Integumentary Comment(s): Anterior chest incision well approximated with dry intact dressing present. - Musculoskeletal Musculoskeletal: Present: generalized weakness, strength equal bilaterally - Psychiatric Psychiatric: Present: A&O x's 3, appropriate affect, intact judgment & insight - Allied health notes Allied health notes reviewed: nursing - Labs CBC & Chem 7: 12/05/16 04:35 12/05/16 04:35 Labs: Abnormal Lab Results - Last 24 Hours (Table) 12/04/16 12/04/16 12/04/16 Range/Units 09:05 10:02 13:03 RBC (4.30-5.90) m/uL Hgb (13.0-17.5) gm/dL Hct (39.0-53.0) % PT (9.0-12.0) sec Sodium (137-145) mmol/L POC Glucose (mg/dL) 171 H 170 H 104 H (75-99) mg/dL Calcium (8.4-10.2) mg/dL 12/04/16 12/04/16 12/04/16 Range/Units 14:19 16:05 18:19 RBC (4.30-5.90) m/uL Hgb (13.0-17.5) gm/dL Hct (39.0-53.0) % PT (9.0-12.0) sec Sodium (137-145) mmol/L POC Glucose (mg/dL) 134 H 144 H 114 H (75-99) mg/dL Calcium (8.4-10.2) mg/dL 12/04/16 12/04/16 12/05/16 Range/Units 20:01 22:09 00:10 RBC (4.30-5.90) m/uL Hgb (13.0-17.5) gm/dL Hct (39.0-53.0) % PT (9.0-12.0) sec Sodium (137-145) mmol/L POC Glucose (mg/dL) 146 H 151 H 128 H (75-99) mg/dL Calcium (8.4-10.2) mg/dL 12/05/16 12/05/16 12/05/16 Range/Units 02:08 03:05 04:01 RBC (4.30-5.90) m/uL Hgb (13.0-17.5) gm/dL Hct (39.0-53.0) % PT (9.0-12.0) sec Sodium (137-145) mmol/L POC Glucose (mg/dL) 118 H 104 H 101 H (75-99) mg/dL Calcium (8.4-10.2) mg/dL 12/05/16 12/05/16 12/05/16 Range/Units 04:35 04:35 04:35 RBC 2.63 L (4.30-5.90) m/uL Hgb 8.3 L (13.0-17.5) gm/dL Hct 25.7 L (39.0-53.0) % PT 26.1 H (9.0-12.0) sec Sodium 134 L (137-145) mmol/L POC Glucose (mg/dL) (75-99) mg/dL Calcium 8.1 L (8.4-10.2) mg/dL 12/05/16 Range/Units 05:59 RBC (4.30-5.90) m/uL Hgb (13.0-17.5) gm/dL Hct (39.0-53.0) % PT (9.0-12.0) sec Sodium (137-145) mmol/L POC Glucose (mg/dL) 117 H (75-99) mg/dL Calcium (8.4-10.2) mg/dL Assessment and Plan (1) Status post coronary artery bypass graft Status: Acute (2) Coronary artery disease Status: Acute (3) Family history of heart disease Status: Acute (4) History of PTCA Status: Acute (5) Hyperlipidemia Status: Acute (6) Hypertension Status: Acute (7) Nicotine dependence, chewing tobacco, uncomplicated Status: Acute Plan: 1. Continue ASA, Lipitor, Lopressor, lisinopril, digoxin, Lasix, Coumadin. 2. Continue amiodarone for atrial fibrillation prophylaxis. 3. Wean O2 as tolerated. 4. Monitor for urinary retention. 5. Continue TPN for until patient able to take in enough calories. Calorie count in place. 6. Insulin/diabetic management per primary care service. Would recommend discontinuing insulin drip, transition to subcu insulin. 7. Continue antibiotics per pulmonology. 8. Increase activity, out of bed to chair. Physical therapy following. 9. Daily labs, chest x-rays. 10. GI/DVT prophylaxis. 11. Transfer to [facility] soon. 12. Discharge planning in process. Patient will need rehabilitation upon discharge. Time with Patient: Greater than 30
[2016-12-05 10:07] LABS: Glucose,Whole Blood 156 mg/dL (75-99)
--- NOTE | 2016-12-05 10:08 | P.CONS ---
History of Present Illness - Chief Complaint Cardiac debility - History of Present Illness I had the opportunity to see patient for inpatient rehab consultation with regard to cardiac debility. He was admitted to [facility] November 14 and underwent coronary bypassing. Seen by pulmonary for ventilatory and ICU assistance. Seen by Dr. Dr. Rosas who notes dysphagia and ileus, improving. PT reports 2 person maximal assistance for functional mobility. Chest x-rays followed for left lower lobe infiltrate and effusion. Previous functional history, as elicited from and patient: 61-year-old right-handed white male who is lives and one for home with . Retired. During driving and they share the cooking. Patient chews tobacco and perhaps 8-15 beers a day. Otherwise independent with dressing, standing shower and gait without device. Regular doctors Dr. Townsend. Family history of father with heart attack. Review of Systems Review of systems: ENT: Denies sneezes or discharge. Eyes: Denies discharge or photophobia. Cardiac: Some chest or sternal discomfort. Wearing harness. Pulmonary: Least mild shortness of breath. Gastrointestinal: Denies nausea, emesis, constipation, diarrhea. Genitourinary: Denies discharge or frequency. Musculoskeletal: Denies muscle or bone aches. Neurologic: Generalized weakness. Endocrine: Denies shakes or sweats. Oncology: Denies cancers. Dermatologic: Denies rash, itching, pruritus. ALLERGY/immunology: Denies sneezes, rashes. Past Medical History Past Medical History: Coronary Artery Disease (CAD), Hypertension, Myocardial Infarction (CT) Additional Past Medical History / Comment(s): gout Last Myocardial Infarction Date:: 1999 History of Any Multi-Drug Resistant Organisms: None Reported Past Surgical History: Heart Catheterization With Stent Additional Past Surgical History / Comment(s): stent x1 Past Anesthesia/Blood Transfusion Reactions: No Reported Reaction Date of Last Stent Placement:: 1999 Past Psychological History: No Psychological Hx Reported Smoking Status: Current every day smoker Past Alcohol Use History: Heavy Additional Past Alcohol Use History / Comment(s): chews tobacco, one tin last 3- 4 days, drinks 6-8 beers a day Past Drug Use History: None Reported - Past Family History Sister(s) Family Medical History: Cancer Additional Family Medical History / Comment(s): thyroid Medications and Allergies Home Medications Medication Instructions Recorded Confirmed Type Aspirin EC [Ecotrin] 325 mg PO DAILY 11/01/15 11/10/16 History Metoprolol Tartrate [Lopressor] 25 mg PO BID 11/01/15 11/10/16 History Atorvastatin [Lipitor] 40 mg PO HS 11/03/16 11/10/16 History Enalapril/Hydrochlorothiazide 1 tab PO DAILY 11/03/16 11/10/16 History [Vaseretic 10-25 mg] Thiamine [Vitamin B-1] 100 mg PO DAILY 11/07/16 11/10/16 History Allergies Allergy/AdvReac Type Severity Reaction Status Date / Time Penicillins Allergy Rash/Hives Verified 11/07/16 14:29 Physical Exam Vitals: Vital Signs Temp Pulse Resp BP Pulse Ox 12/05/16 09:00 73 22 152/82 95 12/05/16 08:00 98.2 F 74 12 94 L 12/05/16 07:00 65 18 93 L 12/05/16 06:00 61 17 117/69 94 L 12/05/16 05:00 61 19 117/69 94 L 12/05/16 04:00 57 L 15 108/57 96 12/05/16 03:17 15 12/05/16 03:00 58 L 10 L 106/60 95 12/05/16 02:00 59 L 14 103/62 95 12/05/16 01:00 58 L 15 120/61 95 12/05/16 00:00 61 19 122/61 97 12/04/16 23:00 63 19 125/69 96 12/04/16 22:00 65 20 137/64 96 12/04/16 21:00 69 20 121/59 94 L 12/04/16 20:45 69 18 128/61 95 12/04/16 20:00 97.7 F 71 25 H 128/61 12/04/16 19:23 68 12/04/16 19:00 66 17 112/61 12/04/16 18:00 68 22 159/71 12/04/16 17:00 62 17 105/63 12/04/16 16:00 59 L 15 115/58 98 12/04/16 15:00 59 L 14 108/56 98 12/04/16 14:48 61 12/04/16 14:00 62 23 117/63 100 12/04/16 13:00 65 20 105/65 12/04/16 12:00 98.2 F 60 15 111/60 100 12/04/16 11:00 87 20 105/54 100 Intake and Output 12/04/16 12/05/16 12/05/16 22:59 06:59 14:59 Intake Total 135.55 110.575 40 Output Total 540 535 250 Balance -404.45 -424.425 -210 Intake: IV 110 80 40 .9 NaCL 110 80 40 Intake, IV Titration 25.55 30.575 Amount Insulin Regular 100 unit 25.55 30.575 In Sodium Chloride 0.9% 100 ml @ Per Protocol IV .Q0M [facility] Rx#:[id number] Output: Urine 540 535 250 Other: Voiding Method Indwelling Catheter Indwelling Catheter # Bowel Movements 1 Weight 95.8 kg Skin: Good color, texture, turgor. General: Obese and comfortable appearance and fatigued affect. Head: Normocephalic, atraumatic. Eyes: Symmetric. Pupils equal round. Ears: Symmetric. Hearing within normal limits. Mouth: Clear. Neck: Supple. Carotid without bruit. Cardiac: Regular rate and rhythm. Wearing harness. Sternotomy scar clean and dressed. Lungs: Clear anteriorly and posteriorly. Abdomen: Soft active nontender. Extremities: Normal tone. 2+ edema forelegs and feet. At least moderate arthritic changes shoulders and knees. Neurological: Mental status: Alert, cooperative, pleasant. Cranial nerves: Symmetric facial tone and trapezius. Motor: Active movement but all limbs but has difficulty elevating legs more so than arms off of lazy boy chair.. Sensation: Intact throughout. DTRs: Symmetric and equal throughout. Mobility: Did not attempt to stand on my own is at least a two-person assistance and a large individual. Results CBC & Chem 7: 12/05/16 04:35 12/05/16 04:35 Labs: Abnormal Lab Results - Last 24 Hours (Table) 12/04/16 12/04/16 12/04/16 Range/Units 10:02 13:03 14:19 RBC (4.30-5.90) m/uL Hgb (13.0-17.5) gm/dL Hct (39.0-53.0) % PT (9.0-12.0) sec Sodium (137-145) mmol/L POC Glucose (mg/dL) 170 H 104 H 134 H (75-99) mg/dL Calcium (8.4-10.2) mg/dL 12/04/16 12/04/16 12/04/16 Range/Units 16:05 18:19 20:01 RBC (4.30-5.90) m/uL Hgb (13.0-17.5) gm/dL Hct (39.0-53.0) % PT (9.0-12.0) sec Sodium (137-145) mmol/L POC Glucose (mg/dL) 144 H 114 H 146 H (75-99) mg/dL Calcium (8.4-10.2) mg/dL 12/04/16 12/05/16 12/05/16 Range/Units 22:09 00:10 02:08 RBC (4.30-5.90) m/uL Hgb (13.0-17.5) gm/dL Hct (39.0-53.0) % PT (9.0-12.0) sec Sodium (137-145) mmol/L POC Glucose (mg/dL) 151 H 128 H 118 H (75-99) mg/dL Calcium (8.4-10.2) mg/dL 12/05/16 12/05/16 12/05/16 Range/Units 03:05 04:01 04:35 RBC (4.30-5.90) m/uL Hgb (13.0-17.5) gm/dL Hct (39.0-53.0) % PT (9.0-12.0) sec Sodium 134 L (137-145) mmol/L POC Glucose (mg/dL) 104 H 101 H (75-99) mg/dL Calcium 8.1 L (8.4-10.2) mg/dL 12/05/16 12/05/16 12/05/16 Range/Units 04:35 04:35 05:59 RBC 2.63 L (4.30-5.90) m/uL Hgb 8.3 L (13.0-17.5) gm/dL Hct 25.7 L (39.0-53.0) % PT 26.1 H (9.0-12.0) sec Sodium (137-145) mmol/L POC Glucose (mg/dL) 117 H (75-99) mg/dL Calcium (8.4-10.2) mg/dL 12/05/16 Range/Units 07:58 RBC (4.30-5.90) m/uL Hgb (13.0-17.5) gm/dL Hct (39.0-53.0) % PT (9.0-12.0) sec Sodium (137-145) mmol/L POC Glucose (mg/dL) 117 H (75-99) mg/dL Calcium (8.4-10.2) mg/dL Chest x-ray: report reviewed (Serial chest x-rays followed for left infiltrate and) Assessment and Plan (1) Status post coronary artery bypass graft Status: Acute Plan: Harjit: 1. Cardiac debility. 2. Status post coronary bypassing. 3. Obese. 4. Coronary disease with history of CT. 5. Hypertension. Comments and plan: At this time PT is already undergoing and OT and speech prescribed. Safety concerns obvious. We'll follow for the ability to tolerate and benefit from therapies out of bed.
--- NOTE | 2016-12-05 10:47 | PN ---
A 61-year-old gentleman who I saw many days back. 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 He is postop day #25. He is status post a coronary bypass grafting. The patient has had numerous complications since he has been here. Anyway, he finally has been extubated and doing reasonably well. The patient is a selective overflow. He is postop day #25 status post bypass grafting. He has a history of hypoxemic respiratory failure with ventilator dependence. He probably developed some postoperative acute respiratory distress syndrome, although the etiology of that it is not clear. 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 In addition, he has a history of recurrent mucous plugging with numerous respiratory secretions requiring airway suctioning via bronchoscopy. He did grew out some Moraxella catarrhalis. In addition, he has a history of hypertension, hyperlipidemia, atrial fibrillation and ileus. The patient's doing much better today. Feeling much better. Eating more. Seen by my partner yesterday Dr. Jung. Hopefully we can get him off of the TPN. Current vital signs include a temperature of 98.2, heart rate 73, respiratory rate is about 16, blood pressure 152/82, mean 105, room-air saturation 95%. He is doing relatively well. HEENT examination is grossly unremarkable. Mucous membranes are moist. Neck is supple. Full range of motion. Cardiovascular examination reveals regular rhythm and rate. Heart sounds are distant. Lungs are clear, breath sounds equal. ABDOMEN: Obese. Bowel sounds are heard. Extremities are intact. No cyanosis, clubbing, or edema. He was admitted back on the with his bypass grafting on the . He is currently receiving no supplemental oxygen. His IV is 0.9 at 10 mL an hour. He has got an insulin drip running at 3.5 units an hour and TPN at 40 mL an hour. Lab data is reviewed. White count 8, hemoglobin 8.3, hematocrit 25.7, platelet count 360,000. PT, INR is 26.1 and 2.7. Sodium 134, potassium, chloride and CO2 all normal. BUN and creatinine were normal. His calcium 8.1. Phosphorus 3.2. Magnesium 2.1. Medications are reviewed. His most recent chest x-ray was a couple days ago on the , which showed basically postop changes. There is some minimal left lower lobe atelectasis. Medications will be reviewed. ASSESSMENT: 1. Postoperative day #25, status post bypass grafting. 2. John postoperative course complicated by number of things including infection, ileus and acute respiratory distress syndrome, all resolved. 3. History of ileus. 4. History of significant airway secretions requiring multiple bronchoscopies. 5. Critical illness polyneuropathy. 6. Hypertension. 7. Hyperlipidemia. 8. History of atrial fibrillation. 9. Postoperative anemia likely related to a combination of excessive blood draws, phlebotomy, etc. as well as bone marrow dysfunction from the critical illness. PLAN: The patient is doing well. Medications are reviewed. Unnecessary medications will be discontinued. As soon as the patient is able to adequately take in adequate calories, will DC the TPN, even if he is taking less than expected calories orally, the TPN is likely pro-inflammatory and is not recommended. Anyway, I will continue to follow. No additional recommendations are made. Medications are reviewed. Prognosis is still guarded but overall he is showing significant improvement.
--- NOTE | 2016-12-05 11:44 | P.PN ---
Progress Note - Text This is a 61-year-old gentleman who is status post prior to coronary bypass surgery. The patient had a prolonged stay in ICU on mechanical ventilator support. The patient was in and out atrial fibrillation with RVR. But he was converted to normal sinus mechanism 5 days ago. He is on metoprolol, amiodarone, and digoxin. He was started on Coumadin and the INR today is therapeutic. From the cardiovascular standpoint overview, we'll continue the current medical treatment. The patient is feeling better slowly.
[2016-12-05 12:04] LABS: Glucose,Whole Blood 130 mg/dL (75-99)
[2016-12-05] MEDS: MULTIVITAMINS, THERA LIQUID 237 ML BOTTLE PO SCH (12:44)
--- NOTE | 2016-12-05 12:51 | P.PN ---
Subjective This is a 60-year-old gentleman that is status post CABG postop day 11. Failure to wean from mechanical ventilator. Patient is seen in consultation for medical management. Patient is currently on pressure control ventilation with PTCA of 18 cm water Depo 7 FiO2 50% and respiratory rate of 18. Patient is awake however not responsive appropriately. Is moving his all 4 extremities to command This a.m. patient apparently was having episodes of hypotension as patient was going into atrial fibrillation. Weaning trials were attempted this a.m. with a pressure support of 7 according to verbal report patient apparently had tachypnea within 5 minutes hence was restarted on full pressure-controlled ventilation. 11/24/16 No new overnight events Pt was extubated doing well appears to be confused Concern for abdominal distention 2 episodes of emesis No fevers, chills. NG in place 11/25/16 On 7 lo2 has a cough, with thick sputum, however pt is unable to produce it due to a weak cough Is more appropriate today No significant abdominal tenderness reported. Interval course Patient has had some dysphagia. Was started on TPN. Is currently restarted on oral diet after a swallow eval Currently calorie count and progress currently off oxygen Patient was also noted to have abdominal distention there was concern for ileus which is resolved Patient is currently seen in selective floor or graft denies having any additional complaints today No fevers chills nausea vomiting or diarrhea reported Objective - Vital Signs Vital signs: Vital Signs Temp 97.0 F L 12/05/16 11:30 Pulse 68 12/05/16 11:53 Resp 22 12/05/16 09:00 BP 103/57 12/05/16 11:30 Pulse Ox 95 12/05/16 11:41 Intake & Output 12/04/16 12/05/16 12/05/16 18:59 06:59 18:59 Intake Total 412.108 210.175 84.875 Output Total 845 985 600 Balance -432.892 -774.825 -515.125 Weight 94.2 kg 95.8 kg Intake: IV 100 170 40 .9 NaCL 100 170 40 Intake, IV Titration 312.108 40.175 44.875 Amount Insulin Regular 100 unit 72.108 40.175 44.875 In Sodium Chloride 0.9% 100 ml @ Per Protocol IV .Q0M [facility] Rx#:[id number] Magnesium Sulfate-D5w Pmx 200 1 gm In Dextrose/Water 1 100ml.bag @ 100 mls/hr IVPB Q1H [facility] Rx#: [id number] Mvi, Adult No.4 with Vit 40 K 10 ml Trace (Conc-1Ml/ Dose) 1 ml Potassium Chloride 20 meq In Amino Acid 5%-D25w+Lytes*E* 1, 000 ml @ 40 mls/hr IV . Q24H [facility] Rx#:[id number] Output: Urine 845 985 600 Other: Voiding Method Indwelling Catheter Indwelling Catheter # Bowel Movements 1 ABP, PAP, CO, CI - Last Documented Arterial Blood Pressure 172/58 Pulmonary Artery Pressure 46/23 Cardiac Output 6.8 Cardiac Index 3.3 - Exam Gen. appearance awake answers some questions appropriately Lungs diminished breath sounds wheezing appreciated Heart S1-S2 heard no significant murmurs appreciated Abdomen is soft nontender no organomegaly, some distention. Lower extremities no significant edema Neuro failure nurse to till 12 grossly intact no focal motor or sensory deficits noted - Labs CBC & Chem 7: 12/05/16 04:35 12/05/16 04:35 Labs: Abnormal Lab Results - Last 24 Hours (Table) 12/04/16 12/04/16 12/04/16 Range/Units 13:03 14:19 16:05 RBC (4.30-5.90) m/uL Hgb (13.0-17.5) gm/dL Hct (39.0-53.0) % PT (9.0-12.0) sec Sodium (137-145) mmol/L POC Glucose (mg/dL) 104 H 134 H 144 H (75-99) mg/dL Calcium (8.4-10.2) mg/dL 12/04/16 12/04/16 12/04/16 Range/Units 18:19 20:01 22:09 RBC (4.30-5.90) m/uL Hgb (13.0-17.5) gm/dL Hct (39.0-53.0) % PT (9.0-12.0) sec Sodium (137-145) mmol/L POC Glucose (mg/dL) 114 H 146 H 151 H (75-99) mg/dL Calcium (8.4-10.2) mg/dL 12/05/16 12/05/16 12/05/16 Range/Units 00:10 02:08 03:05 RBC (4.30-5.90) m/uL Hgb (13.0-17.5) gm/dL Hct (39.0-53.0) % PT (9.0-12.0) sec Sodium (137-145) mmol/L POC Glucose (mg/dL) 128 H 118 H 104 H (75-99) mg/dL Calcium (8.4-10.2) mg/dL 12/05/16 12/05/16 12/05/16 Range/Units 04:01 04:35 04:35 RBC 2.63 L (4.30-5.90) m/uL Hgb 8.3 L (13.0-17.5) gm/dL Hct 25.7 L (39.0-53.0) % PT (9.0-12.0) sec Sodium 134 L (137-145) mmol/L POC Glucose (mg/dL) 101 H (75-99) mg/dL Calcium 8.1 L (8.4-10.2) mg/dL 12/05/16 12/05/16 12/05/16 Range/Units 04:35 05:59 07:58 RBC (4.30-5.90) m/uL Hgb (13.0-17.5) gm/dL Hct (39.0-53.0) % PT 26.1 H (9.0-12.0) sec Sodium (137-145) mmol/L POC Glucose (mg/dL) 117 H 117 H (75-99) mg/dL Calcium (8.4-10.2) mg/dL 12/05/16 12/05/16 Range/Units 10:04 11:57 RBC (4.30-5.90) m/uL Hgb (13.0-17.5) gm/dL Hct (39.0-53.0) % PT (9.0-12.0) sec Sodium (137-145) mmol/L POC Glucose (mg/dL) 156 H 130 H (75-99) mg/dL Calcium (8.4-10.2) mg/dL Assessment and Plan Plan: #1 acute hypoxic respiratory failure as expected however prolonged due to other comorbidities. #2 CAD status post CABG postop day 25 #3 critical care polyneuropathy which is improved #4 history of hypertension #5 dyslipidemia #6 proximal atrial fibrillation recurrent episodes of A. fib with RVR. However rate controlled anticoagulation to be decided by cardiothoracic surgery #7 history of significant alcohol use status post a prolonged episode of delirium tremens #8 gout #9 diabetes mellitus currently on insulin drip. #10 dysphagia , resolved currently tolerating oral intake #11 M .catarrhalis tracheo bronchitis, Health care acquired tracheobronchitis. 12. ileus. Resolved Plan Continue with insulin drip for the next 24 hours once patient's TPN is titrated off will assess the insulin requirement with oral intake thereafter start the patient on a basal dose tomorrow in the a.m. Prognosis guarded Disposition usp versus inpatient rehab
[2016-12-05] MEDS: MVI, ADULT NO.4 WITH VIT K 10 ML, TRACE (CONC-1ML/DOSE) 1 ML, POTASSIUM CHLORIDE 40 MEQ... IV SCH ×5 (14:43)
[2016-12-05 15:13] LABS: Glucose,Whole Blood 127 mg/dL (75-99)
[2016-12-05] MEDS: INSULIN REGULAR 100 UNIT in SODIUM CHLORIDE 0.9% 100 ML IV SCH (15:21)
[2016-12-05 16:00] LABS: Glucose,Whole Blood 117 mg/dL (75-99)
[2016-12-05] MEDS: LEVOFLOXACIN 750 MG TAB PO SCH (17:51)
[2016-12-05 18:01] LABS: Glucose,Whole Blood 126 mg/dL (75-99)
[2016-12-05 20:15] LABS: Glucose,Whole Blood 156 mg/dL (75-99)
[2016-12-05] MEDS: SENNOSIDES-DOCUSATE SODIUM 1 EACH TAB PO SCH (20:24)
[2016-12-05 22:16] LABS: Glucose,Whole Blood 91 mg/dL (75-99)
[2016-12-05 23:32] LABS: Glucose,Whole Blood 98 mg/dL (75-99)
[2016-12-06] MEDS: METOCLOPRAMIDE 5 MG/ML 2 ML VIAL IVP SCH ×4 (00:13→17:06)
[2016-12-06 00:16] LABS: Glucose,Whole Blood 92 mg/dL (75-99)
[2016-12-06 01:30] LABS: Glucose,Whole Blood 109 mg/dL (75-99)
[2016-12-06 02:15] LABS: Glucose,Whole Blood 108 mg/dL (75-99)
[2016-12-06 03:23] LABS: Glucose,Whole Blood 104 mg/dL (75-99)
[2016-12-06 04:23] LABS: Glucose,Whole Blood 107 mg/dL (75-99)
[2016-12-06 05:17] LABS: Glucose,Whole Blood 110 mg/dL (75-99)
[2016-12-06 06:24] LABS: Glucose,Whole Blood 109 mg/dL (75-99)
[2016-12-06 07:04] LABS: CH 31.6; CHCM 32.8; HCT 25.5 % (39.0-53.0); HGB 8.2 gm/dL (13.0-17.5); Hypochromasia Slight; MCH 31.2 pg (25.0-35.0); MCHC 32.3 g/dL (31.0-37.0); MCV 96.8 fL (80.0-100.0); Mean Platelet Volume 7.1; RBC 2.63 m/uL (4.30-5.90); RDW 15.3 % (11.5-15.5)
[2016-12-06 07:20] LABS: Anion Gap 7 mmol/L; Blood Urea Nitrogen 14 mg/dL (9-20); Calcium 8.3 mg/dL (8.4-10.2); Carbon Dioxide 24 mmol/L (22-30); Chloride 104 mmol/L (98-107); Glucose 105 mg/dL (74-99); Non-African American GFR(MDRD) >60 (>60 ml/min/1.73 sqM); Potassium 4.2 mmol/L (3.5-5.1); Sodium 135 mmol/L (137-145)
[2016-12-06 07:33] LABS: INR 3.2 (<1.1); Prothrombin Time 31.2 sec (9.0-12.0)
[2016-12-06 07:41] LABS: Glucose,Whole Blood 109 mg/dL (75-99)
[2016-12-06] MEDS: METOPROLOL TARTRATE 50 MG TAB PO SCH ×2 (07:48→21:26)
[2016-12-06] MEDS: ASPIRIN 325 MG TAB PO SCH (07:48)
[2016-12-06] MEDS: AMIODARONE 200 MG TAB PO SCH (07:48)
[2016-12-06] MEDS: SERTRALINE 50 MG TAB PO SCH (07:48)
[2016-12-06] MEDS: ATORVASTATIN 40 MG TAB PO SCH (07:48)
[2016-12-06] MEDS: PANTOPRAZOLE 40 MG TABLET PO SCH (07:49)
[2016-12-06] MEDS: FUROSEMIDE 10 MG/ML 2 ML VIAL IV SCH (07:49)
[2016-12-06] MEDS: THIAMINE 100 MG TAB PO SCH ×2 (07:49→21:27)
[2016-12-06] MEDS: DIGOXIN 250 MCG TAB OG-TUBE SCH (07:49)
[2016-12-06] MEDS: MULTIVITAMINS, THERA LIQUID 237 ML BOTTLE PO SCH (07:50)
[2016-12-06 08:15] LABS: Glucose,Whole Blood 108 mg/dL (75-99)
[2016-12-06] MEDS: IPRATROPIUM-ALBUTEROL 3 ML NEB INHALATION SCH ×4 (08:23→20:46)
[2016-12-06] MEDS: LISINOPRIL 10 MG TAB PO SCH ×2 (08:32→21:26)
[2016-12-06 09:07] LABS: Glucose,Whole Blood 129 mg/dL (75-99)
--- NOTE | 2016-12-06 09:13 | P.PN ---
Subjective Principal diagnosis: Coronary artery disease, status post prior stenting to his right coronary artery. Preserved left ventricular function. Hyperlipidemia. Hypertension. ETOH abuse. POD #27 total arterial non-aortic patch off-pump double coronary artery bypass grafting using in situ skeletonized right internal mammary artery to the left anterior descending artery across the anterior midline in situ totally skeletonized left internal mammary artery to the first obtuse marginal artery. Intraoperative transesophageal echocardiogram and epi-aortic scanning. Intraoperative graft flow measurements using the Vedicisstim system POD #27 flexible bronchoscopy with bronchial washings secondary to postoperative mucous plugging with increasing oxygen demand the night of surgery. Pt had acute hypoxic post operative respiratory failure as an unexpected post-surgical condition, related to the patient's underlying medical comorbidities. Unable to determine if ventilator associated pneumonia vs. trachobronchitis, an unexpected post-surgical condition. Sputum culture grew out Moraxella, blood cultures are negative to date, urine culture grew Klebsiella. Patient placed on Levaquin per pulmonology. Pt developed postoperative alcohol withdrawal requiring increased sedation and prolonged mechanical ventilation. Patient developed postoperative ileus, an unexpected post-surgical condition, currently resolved. General surgery consulted, no intervention at this time. Passed modified barium swallow. NGT removed. Placed on diet. TPN discontinued yesterday secondary to patient meeting caloric needs. Patient transferred to [facility] yesterday. Currently sitting up in bed in no apparent distress. Pain controlled. Tay DC'd yesterday, patient continues to void. Tolerating diet. Objective - Vital Signs Vital signs: Vital Signs Temp 98.8 F 12/06/16 04:00 Pulse 64 12/06/16 04:00 Resp 18 12/06/16 04:00 BP 102/54 12/06/16 04:00 Pulse Ox 94 L 12/06/16 04:00 Intake & Output 12/05/16 12/06/16 12/06/16 18:59 06:59 18:59 Intake Total 265.558 135.417 Output Total 600 200 Balance -334.442 -64.583 Weight 95.8 kg 93.5 kg Intake: IV 40 130 .9 NaCL 40 130 Intake, IV Titration 45.558 5.417 Amount Insulin Regular 100 unit 45.558 5.417 In Sodium Chloride 0.9% 100 ml @ Per Protocol IV .Q0M [facility] Rx#:[id number] Oral 180 Output: Urine 600 Stool 200 Other: Voiding Method Indwelling Catheter ABP, PAP, CO, CI - Last Documented Arterial Blood Pressure 172/58 Pulmonary Artery Pressure 46/23 Cardiac Output 6.8 Cardiac Index 3.3 - Constitutional General appearance: Present: cooperative, no acute distress, obese - Respiratory Details: Lungs sounds diminished bilaterally. Respirations even, nonlabored. Remains on room air. Oxygen saturation 94%. Able to achieve 1000 mL on incentive spirometry. Effective cough. - Cardiovascular Details: S1, S2 present. Regular rate and rhythm, normal sinus rhythm on telemetry. Sternum stable superiorly, movable inferiorly. Heart hugger in place with patient demonstrating appropriate use. Trace bilateral lower extremity edema still present. - Gastrointestinal Gastrointestinal Comment(s): Abdomen soft, nontender, slightly distended. Active bowel sounds 4 quadrants. Tolerating diet. Bowel movement yesterday 3 - Genitourinary Genitourinary Comment(s): Voiding per urinal. - Integumentary Integumentary Comment(s): Anterior chest incision well approximated with dry intact sternal dressing. - Musculoskeletal Musculoskeletal: Present: generalized weakness, strength equal bilaterally - Psychiatric Psychiatric: Present: A&O x's 3, appropriate affect, intact judgment & insight - Allied health notes Allied health notes reviewed: nursing - Labs CBC & Chem 7: 12/06/16 06:32 12/06/16 06:32 Labs: Abnormal Lab Results - Last 24 Hours (Table) 12/05/16 12/05/16 12/05/16 Range/Units 07:58 10:04 11:57 RBC (4.30-5.90) m/uL Hgb (13.0-17.5) gm/dL Hct (39.0-53.0) % PT (9.0-12.0) sec Sodium (137-145) mmol/L Glucose (74-99) mg/dL POC Glucose (mg/dL) 117 H 156 H 130 H (75-99) mg/dL Calcium (8.4-10.2) mg/dL 12/05/16 12/05/16 12/05/16 Range/Units 14:53 15:58 17:59 RBC (4.30-5.90) m/uL Hgb (13.0-17.5) gm/dL Hct (39.0-53.0) % PT (9.0-12.0) sec Sodium (137-145) mmol/L Glucose (74-99) mg/dL POC Glucose (mg/dL) 127 H 117 H 126 H (75-99) mg/dL Calcium (8.4-10.2) mg/dL 12/05/16 12/06/16 12/06/16 Range/Units 20:03 01:29 02:14 RBC (4.30-5.90) m/uL Hgb (13.0-17.5) gm/dL Hct (39.0-53.0) % PT (9.0-12.0) sec Sodium (137-145) mmol/L Glucose (74-99) mg/dL POC Glucose (mg/dL) 156 H 109 H 108 H (75-99) mg/dL Calcium (8.4-10.2) mg/dL 12/06/16 12/06/16 12/06/16 Range/Units 03:09 04:11 05:06 RBC (4.30-5.90) m/uL Hgb (13.0-17.5) gm/dL Hct (39.0-53.0) % PT (9.0-12.0) sec Sodium (137-145) mmol/L Glucose (74-99) mg/dL POC Glucose (mg/dL) 104 H 107 H 110 H (75-99) mg/dL Calcium (8.4-10.2) mg/dL 12/06/16 12/06/16 12/06/16 Range/Units 06:19 06:32 06:32 RBC (4.30-5.90) m/uL Hgb (13.0-17.5) gm/dL Hct (39.0-53.0) % PT 31.2 H (9.0-12.0) sec Sodium 135 L (137-145) mmol/L Glucose 105 H (74-99) mg/dL POC Glucose (mg/dL) 109 H (75-99) mg/dL Calcium 8.3 L (8.4-10.2) mg/dL 12/06/16 12/06/16 Range/Units 06:32 07:25 RBC 2.63 L (4.30-5.90) m/uL Hgb 8.2 L (13.0-17.5) gm/dL Hct 25.5 L (39.0-53.0) % PT (9.0-12.0) sec Sodium (137-145) mmol/L Glucose (74-99) mg/dL POC Glucose (mg/dL) 109 H (75-99) mg/dL Calcium (8.4-10.2) mg/dL Assessment and Plan (1) Status post coronary artery bypass graft Status: Acute (2) Coronary artery disease Status: Acute (3) Family history of heart disease Status: Acute (4) History of PTCA Status: Acute (5) Hyperlipidemia Status: Acute (6) Hypertension Status: Acute (7) Nicotine dependence, chewing tobacco, uncomplicated Status: Acute Plan: 1. Continue ASA, Lipitor, Lopressor, lisinopril, digoxin, Lasix, Coumadin. 2. Continue amiodarone for atrial fibrillation prophylaxis. 3. INR 3.2 today, no Coumadin. 4. Encourage incentive spirometry use. 5. Continue antibiotics per pulmonology. 6. Insulin/diabetic management per primary care service. 7. Increase activity, ambulate in hallway. Physical therapy following. 8. Daily labs 9. GI/DVT prophylaxis. 10. Discharge planning in process. Patient will need rehabilitation upon discharge. Dr. Campos following patient Time with Patient: Greater than 30
[2016-12-06 10:02] LABS: Glucose,Whole Blood 134 mg/dL (75-99)
[2016-12-06] MEDS: INSULIN DETEMIR 100 UNIT/ML 10 ML VIAL SQ SCH (10:29)
[2016-12-06 11:39] LABS: Glucose,Whole Blood 126 mg/dL (75-99)
[2016-12-06] MEDS: INSULIN LISPRO (humaLOG) 300 UNIT/3 ML VIAL SQ SCH ×3 (11:59→21:25)
--- NOTE | 2016-12-06 12:43 | P.PN ---
Subjective Principal diagnosis: Status post coronary artery bypass grafting, postoperative day #4. This is a 61-year-old white male status post CABG, total arterial non-aortic patch off pump double coronary artery bypass grafting using in situ skeletonized right internal mammary artery to the left anterior descending across the anterior midline in situ totally skeletonized left internal mammary artery to the first obtuse marginal artery. His postoperative day #27. The patient is seen in follow-up on the selective care unit. He is much more awake and alert. He is able to stand at the bedside with assistance. Is any shortness breath, cough or congestion. He is maintaining good O2 saturations in the upper 90s on room air. Afebrile. Objective - Vital Signs Vital signs: Vital Signs Temp 97.3 F L 12/06/16 11:10 Pulse 65 12/06/16 11:51 Resp 18 12/06/16 11:10 BP 129/71 12/06/16 11:10 Pulse Ox 97 12/06/16 11:10 Intake & Output 12/05/16 12/06/16 12/06/16 18:59 06:59 18:59 Intake Total 265.558 135.417 100 Output Total 283 849 8659 Balance -334.442 -64.583 -1450 Weight 95.8 kg 93.5 kg Intake: IV 40 130 .9 NaCL 40 130 Intake, IV Titration 45.558 5.417 0 Amount Insulin Regular 100 unit 45.558 5.417 0 In Sodium Chloride 0.9% 100 ml @ Per Protocol IV .Q0M [facility] Rx#:[id number] Oral 180 100 Output: Urine 600 1550 Stool 200 Other: Voiding Method Indwelling Catheter # Bowel Movements 2 ABP, PAP, CO, CI - Last Documented Arterial Blood Pressure 172/58 Pulmonary Artery Pressure 46/23 Cardiac Output 6.8 Cardiac Index 3.3 - Exam GENERAL EXAM: Awake, alert. No acute distress. HEAD: Normocephalic. EYES: Sluggish reaction of pupils, equal size. NOSE: Clear with pink turbinates. THROAT: No erythema or exudates. NECK: No masses, no JVD. CHEST: No chest wall deformity. LUNGS: Equal air entry with faint crackles in the bilateral posterior bases, more so on the left. CVS: S1 and S2 normal with no audible murmurs, regular rhythm. ABDOMEN: No hepatosplenomegaly, normal bowel sounds, no guarding or rigidity. Extremities: There is trace peripheral edema. No clubbing, no cyanosis. Peripheral pulses are intact. - Labs CBC & Chem 7: 12/06/16 06:32 12/06/16 06:32 Labs: Abnormal Lab Results - Last 24 Hours (Table) 12/05/16 12/05/16 12/05/16 Range/Units 14:53 15:58 17:59 RBC (4.30-5.90) m/uL Hgb (13.0-17.5) gm/dL Hct (39.0-53.0) % PT (9.0-12.0) sec Sodium (137-145) mmol/L Glucose (74-99) mg/dL POC Glucose (mg/dL) 127 H 117 H 126 H (75-99) mg/dL Calcium (8.4-10.2) mg/dL 12/05/16 12/06/16 12/06/16 Range/Units 20:03 01:29 02:14 RBC (4.30-5.90) m/uL Hgb (13.0-17.5) gm/dL Hct (39.0-53.0) % PT (9.0-12.0) sec Sodium (137-145) mmol/L Glucose (74-99) mg/dL POC Glucose (mg/dL) 156 H 109 H 108 H (75-99) mg/dL Calcium (8.4-10.2) mg/dL 12/06/16 12/06/16 12/06/16 Range/Units 03:09 04:11 05:06 RBC (4.30-5.90) m/uL Hgb (13.0-17.5) gm/dL Hct (39.0-53.0) % PT (9.0-12.0) sec Sodium (137-145) mmol/L Glucose (74-99) mg/dL POC Glucose (mg/dL) 104 H 107 H 110 H (75-99) mg/dL Calcium (8.4-10.2) mg/dL 12/06/16 12/06/16 12/06/16 Range/Units 06:19 06:32 06:32 RBC (4.30-5.90) m/uL Hgb (13.0-17.5) gm/dL Hct (39.0-53.0) % PT 31.2 H (9.0-12.0) sec Sodium 135 L (137-145) mmol/L Glucose 105 H (74-99) mg/dL POC Glucose (mg/dL) 109 H (75-99) mg/dL Calcium 8.3 L (8.4-10.2) mg/dL 12/06/16 12/06/16 12/06/16 Range/Units 06:32 07:25 08:11 RBC 2.63 L (4.30-5.90) m/uL Hgb 8.2 L (13.0-17.5) gm/dL Hct 25.5 L (39.0-53.0) % PT (9.0-12.0) sec Sodium (137-145) mmol/L Glucose (74-99) mg/dL POC Glucose (mg/dL) 109 H 108 H (75-99) mg/dL Calcium (8.4-10.2) mg/dL 12/06/16 12/06/16 12/06/16 Range/Units 09:03 09:59 11:36 RBC (4.30-5.90) m/uL Hgb (13.0-17.5) gm/dL Hct (39.0-53.0) % PT (9.0-12.0) sec Sodium (137-145) mmol/L Glucose (74-99) mg/dL POC Glucose (mg/dL) 129 H 134 H 126 H (75-99) mg/dL Calcium (8.4-10.2) mg/dL Assessment and Plan Plan: Impression: 1 status post CABG, postoperative day #27 2 history of nicotine dependence and suspect some component of COPD 3 history of documented coronary artery disease based on a recent cardiac catheterization 4 history of percutaneous revascularization of the proximal right coronary artery in 2000 5 history of hypertension 6 history of myocardial infarction 7 status post bronchoscopy and bronchoalveolar lavage of the right upper lobe read lobe and right lower lobe upon arrival to the ICU. 8 failure to wean mostly secondary to relative hypoxemia, O2 saturation is very marginal, and it is in the 70s at 50%. And because of the mental status and suspected alcohol withdrawal is another major factor that delaying the weaning process. Proved, maintaining good O2 saturations on room air. 9 suspect acute alcohol withdrawal considering the patient is a heavy drinker Plan: The patient was seen and evaluated by Dr. Toro. Doing well from the pulmonary and critical care standpoint. Continue with his bronchodilators. Continue diuretics. Continue the increased use of the incentive spirometer and cough and deep breathing exercises. We'll increase his activity as tolerated. Continue to follow and make further recommendations based on his clinical status. Discharge planning is in place.
--- NOTE | 2016-12-06 15:18 | P.PN ---
Subjective Principal diagnosis: CABG This a 61-year-old gentleman who is status post coronary bypass grafting surgery. He had a prolonged stay in the intensive care unit on mechanical ventilator support. He has been in and out of atrial fibrillation but remains in normal sinus rhythm. He is currently being followed today on the telemetry unit. Overall doing well. He is currently on metoprolol tartrate , amiodarone, and Lanoxin. He is on Coumadin for anticoagulation, INR is 3.2 today. Hemoglobin 8.2, potassium 4.2, BUN 14, creatinine 0.7. Objective - Vital Signs Vital signs: Vital Signs Temp 97.3 F L 12/06/16 11:10 Pulse 65 12/06/16 11:51 Resp 18 12/06/16 11:10 BP 129/71 12/06/16 11:10 Pulse Ox 97 12/06/16 11:10 Intake & Output 12/05/16 12/06/16 12/06/16 18:59 06:59 18:59 Intake Total 265.558 135.417 337 Output Total 272 616 0786 Balance -334.442 -64.583 -1213 Weight 95.8 kg 93.5 kg Intake: IV 40 130 .9 NaCL 40 130 Intake, IV Titration 45.558 5.417 0 Amount Insulin Regular 100 unit 45.558 5.417 0 In Sodium Chloride 0.9% 100 ml @ Per Protocol IV .Q0M [facility] Rx#:[id number] Oral 180 337 Output: Urine 600 1550 Stool 200 Other: Voiding Method Indwelling Catheter # Bowel Movements 2 ABP, PAP, CO, CI - Last Documented Arterial Blood Pressure 172/58 Pulmonary Artery Pressure 46/23 Cardiac Output 6.8 Cardiac Index 3.3 - Exam PHYSICAL EXAMINATION: HEENT: Head is atraumatic, normocephalic. Pupils equal, round. Neck is supple. There is no elevated jugular venous pressure. HEART EXAMINATION: Heart S1, S2 normal. No murmur or gallop heard. CHEST EXAMINATION: lungs reveal fine crackles to bilateral bases. ABDOMEN: Soft, nontender. Bowel sounds are heard. No organomegaly noted. EXTREMITIES: 2+ peripheral pulses with no evidence of peripheral edema and no calf tenderness noted. NEUROLOGIC patient is awake, alert and oriented -3. . - Labs CBC & Chem 7: 12/06/16 06:32 12/06/16 06:32 Labs: Abnormal Lab Results - Last 24 Hours (Table) 12/05/16 12/05/16 12/05/16 Range/Units 14:53 15:58 17:59 RBC (4.30-5.90) m/uL Hgb (13.0-17.5) gm/dL Hct (39.0-53.0) % PT (9.0-12.0) sec Sodium (137-145) mmol/L Glucose (74-99) mg/dL POC Glucose (mg/dL) 127 H 117 H 126 H (75-99) mg/dL Calcium (8.4-10.2) mg/dL 12/05/16 12/06/16 12/06/16 Range/Units 20:03 01:29 02:14 RBC (4.30-5.90) m/uL Hgb (13.0-17.5) gm/dL Hct (39.0-53.0) % PT (9.0-12.0) sec Sodium (137-145) mmol/L Glucose (74-99) mg/dL POC Glucose (mg/dL) 156 H 109 H 108 H (75-99) mg/dL Calcium (8.4-10.2) mg/dL 12/06/16 12/06/16 12/06/16 Range/Units 03:09 04:11 05:06 RBC (4.30-5.90) m/uL Hgb (13.0-17.5) gm/dL Hct (39.0-53.0) % PT (9.0-12.0) sec Sodium (137-145) mmol/L Glucose (74-99) mg/dL POC Glucose (mg/dL) 104 H 107 H 110 H (75-99) mg/dL Calcium (8.4-10.2) mg/dL 12/06/16 12/06/16 12/06/16 Range/Units 06:19 06:32 06:32 RBC (4.30-5.90) m/uL Hgb (13.0-17.5) gm/dL Hct (39.0-53.0) % PT 31.2 H (9.0-12.0) sec Sodium 135 L (137-145) mmol/L Glucose 105 H (74-99) mg/dL POC Glucose (mg/dL) 109 H (75-99) mg/dL Calcium 8.3 L (8.4-10.2) mg/dL 12/06/16 12/06/16 12/06/16 Range/Units 06:32 07:25 08:11 RBC 2.63 L (4.30-5.90) m/uL Hgb 8.2 L (13.0-17.5) gm/dL Hct 25.5 L (39.0-53.0) % PT (9.0-12.0) sec Sodium (137-145) mmol/L Glucose (74-99) mg/dL POC Glucose (mg/dL) 109 H 108 H (75-99) mg/dL Calcium (8.4-10.2) mg/dL 12/06/16 12/06/16 12/06/16 Range/Units 09:03 09:59 11:36 RBC (4.30-5.90) m/uL Hgb (13.0-17.5) gm/dL Hct (39.0-53.0) % PT (9.0-12.0) sec Sodium (137-145) mmol/L Glucose (74-99) mg/dL POC Glucose (mg/dL) 129 H 134 H 126 H (75-99) mg/dL Calcium (8.4-10.2) mg/dL Assessment and Plan (1) S/P CABG (coronary artery bypass graft) Status: Acute (2) Nicotine dependence Status: Acute (3) CAD (coronary artery disease) Status: Acute (4) Failure to wean Status: Acute (5) Family history of heart disease Status: Acute (6) History of PTCA Status: Acute (7) Hyperlipidemia Status: Acute (8) Hypertension Status: Acute (9) Paroxysmal a-fib Status: Acute Plan: Cardiology's perspective, patient has been encouraged in the use of his incentive spirometry. His current medications have been reviewed we will continue with those. DNP note has been reviewed, I agree with a documented findings and plan of care. Patient was seen and examined.
[2016-12-06 16:37] LABS: Glucose,Whole Blood 156 mg/dL (75-99)
--- NOTE | 2016-12-06 16:50 | P.PN ---
Subjective This is a 60-year-old gentleman that is status post CABG postop day 11. Failure to wean from mechanical ventilator. Patient is seen in consultation for medical management. Patient is currently on pressure control ventilation with PTCA of 18 cm water Depo 7 FiO2 50% and respiratory rate of 18. Patient is awake however not responsive appropriately. Is moving his all 4 extremities to command This a.m. patient apparently was having episodes of hypotension as patient was going into atrial fibrillation. Weaning trials were attempted this a.m. with a pressure support of 7 according to verbal report patient apparently had tachypnea within 5 minutes hence was restarted on full pressure-controlled ventilation. 11/24/16 No new overnight events Pt was extubated doing well appears to be confused Concern for abdominal distention 2 episodes of emesis No fevers, chills. NG in place 11/25/16 On 7 lo2 has a cough, with thick sputum, however pt is unable to produce it due to a weak cough Is more appropriate today No significant abdominal tenderness reported. Interval course Patient has had some dysphagia. Was started on TPN. Is currently restarted on oral diet after a swallow eval Currently calorie count and progress currently off oxygen Patient was also noted to have abdominal distention there was concern for ileus which is resolved Patient is currently seen in selective floor or graft denies having any additional complaints today No fevers chills nausea vomiting or diarrhea reported 12/06/16 doing well no new overnight events Objective - Vital Signs Vital signs: Vital Signs Temp 97.7 F 12/06/16 15:13 Pulse 80 12/06/16 16:44 Resp 18 12/06/16 15:13 BP 124/68 12/06/16 15:13 Pulse Ox 96 12/06/16 15:13 Intake & Output 12/05/16 12/06/16 12/06/16 18:59 06:59 18:59 Intake Total 265.558 135.417 337 Output Total 147 962 6161 Balance -334.442 -64.583 -1213 Weight 95.8 kg 93.5 kg Intake: IV 40 130 .9 NaCL 40 130 Intake, IV Titration 45.558 5.417 0 Amount Insulin Regular 100 unit 45.558 5.417 0 In Sodium Chloride 0.9% 100 ml @ Per Protocol IV .Q0M [facility] Rx#:[id number] Oral 180 337 Output: Urine 600 1550 Stool 200 Other: Voiding Method Indwelling Catheter # Bowel Movements 2 ABP, PAP, CO, CI - Last Documented Arterial Blood Pressure 172/58 Pulmonary Artery Pressure 46/23 Cardiac Output 6.8 Cardiac Index 3.3 - Exam Gen. appearance awake alert oriented times 3 Lungs diminished breath sounds at bases No wheezing appreciated Heart S1-S2 heard no significant murmurs appreciated Abdomen is soft nontender no organomegaly, some distention. Lower extremities no significant edema Neuro 2 till 12 grossly intact no focal motor or sensory deficits noted - Labs CBC & Chem 7: 12/06/16 06:32 12/06/16 06:32 Labs: Abnormal Lab Results - Last 24 Hours (Table) 12/05/16 12/05/16 12/06/16 Range/Units 17:59 20:03 01:29 RBC (4.30-5.90) m/uL Hgb (13.0-17.5) gm/dL Hct (39.0-53.0) % PT (9.0-12.0) sec Sodium (137-145) mmol/L Glucose (74-99) mg/dL POC Glucose (mg/dL) 126 H 156 H 109 H (75-99) mg/dL Calcium (8.4-10.2) mg/dL 12/06/16 12/06/16 12/06/16 Range/Units 02:14 03:09 04:11 RBC (4.30-5.90) m/uL Hgb (13.0-17.5) gm/dL Hct (39.0-53.0) % PT (9.0-12.0) sec Sodium (137-145) mmol/L Glucose (74-99) mg/dL POC Glucose (mg/dL) 108 H 104 H 107 H (75-99) mg/dL Calcium (8.4-10.2) mg/dL 12/06/16 12/06/16 12/06/16 Range/Units 05:06 06:19 06:32 RBC (4.30-5.90) m/uL Hgb (13.0-17.5) gm/dL Hct (39.0-53.0) % PT 31.2 H (9.0-12.0) sec Sodium (137-145) mmol/L Glucose (74-99) mg/dL POC Glucose (mg/dL) 110 H 109 H (75-99) mg/dL Calcium (8.4-10.2) mg/dL 12/06/16 12/06/16 12/06/16 Range/Units 06:32 06:32 07:25 RBC 2.63 L (4.30-5.90) m/uL Hgb 8.2 L (13.0-17.5) gm/dL Hct 25.5 L (39.0-53.0) % PT (9.0-12.0) sec Sodium 135 L (137-145) mmol/L Glucose 105 H (74-99) mg/dL POC Glucose (mg/dL) 109 H (75-99) mg/dL Calcium 8.3 L (8.4-10.2) mg/dL 12/06/16 12/06/16 12/06/16 Range/Units 08:11 09:03 09:59 RBC (4.30-5.90) m/uL Hgb (13.0-17.5) gm/dL Hct (39.0-53.0) % PT (9.0-12.0) sec Sodium (137-145) mmol/L Glucose (74-99) mg/dL POC Glucose (mg/dL) 108 H 129 H 134 H (75-99) mg/dL Calcium (8.4-10.2) mg/dL 12/06/16 12/06/16 Range/Units 11:36 16:31 RBC (4.30-5.90) m/uL Hgb (13.0-17.5) gm/dL Hct (39.0-53.0) % PT (9.0-12.0) sec Sodium (137-145) mmol/L Glucose (74-99) mg/dL POC Glucose (mg/dL) 126 H 156 H (75-99) mg/dL Calcium (8.4-10.2) mg/dL Assessment and Plan Plan: #1 acute hypoxic respiratory failure as expected however prolonged due to other comorbidities. 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 fib with RVR. However rate controlled anticoagulation to be decided by cardiothoracic surgery #7 history of significant alcohol use status post a prolonged episode of delirium tremens #8 gout #9 diabetes mellitus currently on insulin drip. #10 dysphagia , resolved currently tolerating oral intake #11 M .catarrhalis tracheo bronchitis, Health care acquired tracheobronchitis. 12. ileus. Resolved Plan start levemir 10units novolog sliding scale Disposition halfway versus inpatient rehab
[2016-12-06] MEDS: LEVOFLOXACIN 750 MG TAB PO SCH (17:05)
[2016-12-06 21:06] LABS: Glucose,Whole Blood 151 mg/dL (75-99)
[2016-12-06] MEDS: SENNOSIDES-DOCUSATE SODIUM 1 EACH TAB PO SCH (21:26)
[2016-12-07] MEDS: METOCLOPRAMIDE 5 MG/ML 2 ML VIAL IVP SCH ×5 (00:14→23:08)
[2016-12-07 01:52] LABS: Glucose,Whole Blood 95 mg/dL (75-99)
[2016-12-07 06:25] LABS: Glucose,Whole Blood 102 mg/dL (75-99)
[2016-12-07] MEDS: INSULIN LISPRO (humaLOG) 300 UNIT/3 ML VIAL SQ SCH ×4 (06:30→21:21)
[2016-12-07] MEDS: COLCHICINE 0.6 MG TAB PO PRN (06:34)
[2016-12-07 06:43] LABS: CH 32.4; CHCM 33.6; HCT 26.1 % (39.0-53.0); HDW 3.33; HGB 8.7 gm/dL (13.0-17.5); MCH 32.4 pg (25.0-35.0); MCHC 33.5 g/dL (31.0-37.0); MCV 96.7 fL (80.0-100.0); Mean Platelet Volume 7.1; RDW 15.1 % (11.5-15.5); WBC 7.2 k/uL (3.8-10.6)
[2016-12-07 06:45] LABS: INR 2.7 (<1.1); Prothrombin Time 25.8 sec (9.0-12.0)
[2016-12-07 06:56] LABS: Anion Gap 8 mmol/L; Blood Urea Nitrogen 15 mg/dL (9-20); Calcium 8.3 mg/dL (8.4-10.2); Carbon Dioxide 26 mmol/L (22-30); Chloride 103 mmol/L (98-107); Glucose 98 mg/dL (74-99); Non-African American GFR(MDRD) >60 (>60 ml/min/1.73 sqM); Potassium 4.2 mmol/L (3.5-5.1); Sodium 137 mmol/L (137-145)
--- NOTE | 2016-12-07 08:35 | P.PN ---
<Nasra Whaley - Last Filed: 12/07/16 08:30> Subjective Principal diagnosis: Coronary artery disease, status post prior stenting to his right coronary artery. Preserved left ventricular function. Hyperlipidemia. Hypertension. ETOH abuse. POD #28 total arterial non-aortic patch off-pump double coronary artery bypass grafting using in situ skeletonized right internal mammary artery to the left anterior descending artery across the anterior midline in situ totally skeletonized left internal mammary artery to the first obtuse marginal artery. Intraoperative transesophageal echocardiogram and epi-aortic scanning. Intraoperative graft flow measurements using the Unfoldstim system POD #28 flexible bronchoscopy with bronchial washings secondary to postoperative mucous plugging with increasing oxygen demand the night of surgery. Pt had acute hypoxic post operative respiratory failure as an unexpected post-surgical condition, related to the patient's underlying medical comorbidities. Unable to determine if ventilator associated pneumonia vs. trachobronchitis, an unexpected post-surgical condition. Sputum culture grew out Moraxella, blood cultures are negative to date, urine culture grew Klebsiella. Patient placed on Levaquin per pulmonology. Pt developed postoperative alcohol withdrawal requiring increased sedation and prolonged mechanical ventilation. Patient developed postoperative ileus, an unexpected post-surgical condition, currently resolved. General surgery consulted, no intervention at this time. Passed modified barium swallow. NGT removed. Placed on diet. TPN discontinued secondary to patient meeting caloric needs. Patient currently sitting up in bed in no apparent distress. Denies chest pain/ shortness of breath. States pain is controlled. Continues to tolerate his diet. Objective - Vital Signs Vital signs: Vital Signs Temp 97.0 F L 12/06/16 20:00 Pulse 63 12/07/16 04:00 Resp 18 12/07/16 04:00 BP 122/58 12/07/16 04:00 Pulse Ox 96 12/07/16 04:00 Intake & Output 12/06/16 12/07/16 12/07/16 18:59 06:59 18:59 Intake Total 574 20 Output Total 1550 Balance -976 20 Weight 95 kg Intake: IV 20 .9 NaCL 20 Intake, IV Titration 0 Amount Insulin Regular 100 unit 0 In Sodium Chloride 0.9% 100 ml @ Per Protocol IV .Q0M [facility] Rx#:[id number] Oral 574 Output: Urine 1550 Other: # Bowel Movements 2 ABP, PAP, CO, CI - Last Documented Arterial Blood Pressure 172/58 Pulmonary Artery Pressure 46/23 Cardiac Output 6.8 Cardiac Index 3.3 - Constitutional General appearance: Present: cooperative, no acute distress, obese - Respiratory Details: Lungs sounds diminished bilaterally. Respirations even, nonlabored. Currently on room air with oxygen saturation 96%. Able to achieve 1000 mL on his incentive's premature. Effective cough. - Cardiovascular Details: S1, S2 present. Regular rate and rhythm, normal sinus rhythm on telemetry. Sternum stable superiorly, movable inferiorly. Heart hugger in place with patient attempting to demonstrate appropriate use. No lower extremity edema present. Teds/SCDs present. - Gastrointestinal Gastrointestinal Comment(s): Abdomen soft, nontender, nondistended. Active bowel sounds 4 quadrants. Bowel movement 2 yesterday. Tolerating diet. - Genitourinary Genitourinary Comment(s): Continues to void clear, yellow urine. - Musculoskeletal Musculoskeletal: Present: generalized weakness, strength equal bilaterally - Psychiatric Psychiatric: Present: A&O x's 3, appropriate affect, intact judgment & insight - Allied health notes Allied health notes reviewed: nursing - Labs CBC & Chem 7: 12/07/16 05:37 12/07/16 05:37 Labs: Abnormal Lab Results - Last 24 Hours (Table) 12/06/16 12/06/16 12/06/16 Range/Units 09:03 09:59 11:36 RBC (4.30-5.90) m/uL Hgb (13.0-17.5) gm/dL Hct (39.0-53.0) % PT (9.0-12.0) sec POC Glucose (mg/dL) 129 H 134 H 126 H (75-99) mg/dL Calcium (8.4-10.2) mg/dL 12/06/16 12/06/16 12/07/16 Range/Units 16:31 21:05 05:37 RBC (4.30-5.90) m/uL Hgb (13.0-17.5) gm/dL Hct (39.0-53.0) % PT 25.8 H (9.0-12.0) sec POC Glucose (mg/dL) 156 H 151 H (75-99) mg/dL Calcium (8.4-10.2) mg/dL 12/07/16 12/07/16 12/07/16 Range/Units 05:37 05:37 06:23 RBC 2.70 L (4.30-5.90) m/uL Hgb 8.7 L (13.0-17.5) gm/dL Hct 26.1 L (39.0-53.0) % PT (9.0-12.0) sec POC Glucose (mg/dL) 102 H (75-99) mg/dL Calcium 8.3 L (8.4-10.2) mg/dL Assessment and Plan (1) Status post coronary artery bypass graft Status: Acute (2) Coronary artery disease Status: Acute (3) Family history of heart disease Status: Acute (4) History of PTCA Status: Acute (5) Hyperlipidemia Status: Acute (6) Hypertension Status: Acute (7) Nicotine dependence, chewing tobacco, uncomplicated Status: Acute Plan: 1. Continue ASA, Lipitor, Lopressor, lisinopril, Coumadin. Lasix changed to 40 mg by mouth daily. Digoxin DC'd. 2. Continue amiodarone for atrial fibrillation prophylaxis. 3. INR 2.7 today, will give Coumadin 1 mg today. 4. Encourage incentive spirometry use. 5. Continue antibiotics per pulmonology. 6. Insulin/diabetic management per primary care service. 7. Increase activity, ambulate in hallway. Physical therapy following. 8. Labs every 3 days 9. GI/DVT prophylaxis. 10. Discharge planning in process. Patient will need rehabilitation upon discharge. Dr. Campos following patient Time with Patient: Greater than 30 <Thaddeus Kessler - Last Filed: 12/08/16 18:53> Objective - Vital Signs Vital signs: Vital Signs Temp 98.0 F 12/08/16 16:00 Pulse 68 12/08/16 16:28 Resp 16 12/08/16 16:00 BP 113/59 12/08/16 16:00 Pulse Ox 97 12/08/16 16:00 Intake & Output 12/07/16 12/08/16 12/08/16 18:59 06:59 18:59 Intake Total 355 10 660 Output Total 600 Balance -245 10 660 Weight 95 kg 94.5 kg 94.5 kg Intake: IV 10 .9 NaCL 10 Oral 355 660 Output: Urine 600 Other: Voiding Method Indwelling Catheter Indwelling Catheter ABP, PAP, CO, CI - Last Documented Arterial Blood Pressure 172/58 Pulmonary Artery Pressure 46/23 Cardiac Output 6.8 Cardiac Index 3.3 - Labs CBC & Chem 7: 12/07/16 05:37 12/07/16 05:37 Labs: Abnormal Lab Results - Last 24 Hours (Table) 12/07/16 12/08/16 12/08/16 Range/Units 20:46 05:53 06:17 PT 23.7 H (9.0-12.0) sec POC Glucose (mg/dL) 215 H 104 H (75-99) mg/dL 12/08/16 12/08/16 Range/Units 11:40 16:53 PT (9.0-12.0) sec POC Glucose (mg/dL) 136 H 103 H (75-99) mg/dL Assessment and Plan Plan: The patient was seen and examined. I agree with the above assessment and plan. We will continue with physical therapy. He is currently being evaluated for inpatient rehab.
[2016-12-07] MEDS: IPRATROPIUM-ALBUTEROL 3 ML NEB INHALATION SCH ×4 (08:54→20:03)
[2016-12-07] MEDS: ASPIRIN 325 MG TAB PO SCH (10:27)
[2016-12-07] MEDS: ATORVASTATIN 40 MG TAB PO SCH (10:27)
[2016-12-07] MEDS: AMIODARONE 200 MG TAB PO SCH (10:27)
[2016-12-07] MEDS: PANTOPRAZOLE 40 MG TABLET PO SCH (10:27)
[2016-12-07] MEDS: FUROSEMIDE 40 MG TAB PO SCH (10:28)
[2016-12-07] MEDS: LISINOPRIL 10 MG TAB PO SCH ×2 (10:28→21:20)
[2016-12-07] MEDS: METOPROLOL TARTRATE 50 MG TAB PO SCH ×2 (10:28→21:20)
[2016-12-07] MEDS: THIAMINE 100 MG TAB PO SCH ×2 (10:28→21:20)
[2016-12-07] MEDS: SERTRALINE 50 MG TAB PO SCH (10:28)
[2016-12-07 11:44] LABS: Glucose,Whole Blood 175 mg/dL (75-99)
[2016-12-07] MEDS: MULTIVITAMINS, THERA LIQUID 237 ML BOTTLE PO SCH (13:20)
--- NOTE | 2016-12-07 14:24 | P.PN ---
Subjective Principal diagnosis: Status post coronary artery bypass grafting, postoperative day #28 This is a 61-year-old white male status post CABG, total arterial non-aortic patch off pump double coronary artery bypass grafting using in situ skeletonized right internal mammary artery to the left anterior descending across the anterior midline in situ totally skeletonized left internal mammary artery to the first obtuse marginal artery. His postoperative day #28. The patient is seen again today 12/07/2016 in follow-up on the selective care unit. He is much more awake and alert. He is able to stand at the bedside with assistance. He is currently sitting up at the bedside. He is tolerating his lunch well. He denies any shortness breath, cough or congestion. He is maintaining good O2 saturations in the upper 90s on room air. Afebrile. Gold and stable at 8.7. INR 2.7. Objective - Vital Signs Vital signs: Vital Signs Temp 97.2 F L 12/07/16 08:00 Pulse 68 12/07/16 13:18 Resp 14 12/07/16 12:00 BP 101/55 12/07/16 12:00 Pulse Ox 95 12/07/16 12:00 Intake & Output 12/06/16 12/07/16 12/07/16 18:59 06:59 18:59 Intake Total 574 20 355 Output Total 1550 600 Balance -976 20 -245 Weight 95 kg 95 kg Intake: IV 20 .9 NaCL 20 Intake, IV Titration 0 Amount Insulin Regular 100 unit 0 In Sodium Chloride 0.9% 100 ml @ Per Protocol IV .Q0M [facility] Rx#:[id number] Oral 574 355 Output: Urine 1550 600 Other: Voiding Method Indwelling Catheter # Bowel Movements 2 ABP, PAP, CO, CI - Last Documented Arterial Blood Pressure 172/58 Pulmonary Artery Pressure 46/23 Cardiac Output 6.8 Cardiac Index 3.3 - Exam GENERAL EXAM: Awake, alert. No acute distress. HEAD: Normocephalic. EYES: Sluggish reaction of pupils, equal size. NOSE: Clear with pink turbinates. THROAT: No erythema or exudates. NECK: No masses, no JVD. CHEST: No chest wall deformity. LUNGS: Equal air entry with faint crackles in the bilateral posterior bases, more so on the left. CVS: S1 and S2 normal with no audible murmurs, regular rhythm. ABDOMEN: No hepatosplenomegaly, normal bowel sounds, no guarding or rigidity. Extremities: There is trace peripheral edema. No clubbing, no cyanosis. Peripheral pulses are intact. - Labs CBC & Chem 7: 12/07/16 05:37 12/07/16 05:37 Labs: Abnormal Lab Results - Last 24 Hours (Table) 12/06/16 12/06/16 12/07/16 Range/Units 16:31 21:05 05:37 RBC (4.30-5.90) m/uL Hgb (13.0-17.5) gm/dL Hct (39.0-53.0) % PT 25.8 H (9.0-12.0) sec POC Glucose (mg/dL) 156 H 151 H (75-99) mg/dL Calcium (8.4-10.2) mg/dL 12/07/16 12/07/16 12/07/16 Range/Units 05:37 05:37 06:23 RBC 2.70 L (4.30-5.90) m/uL Hgb 8.7 L (13.0-17.5) gm/dL Hct 26.1 L (39.0-53.0) % PT (9.0-12.0) sec POC Glucose (mg/dL) 102 H (75-99) mg/dL Calcium 8.3 L (8.4-10.2) mg/dL 12/07/16 Range/Units 11:40 RBC (4.30-5.90) m/uL Hgb (13.0-17.5) gm/dL Hct (39.0-53.0) % PT (9.0-12.0) sec POC Glucose (mg/dL) 175 H (75-99) mg/dL Calcium (8.4-10.2) mg/dL Assessment and Plan Plan: Impression: 1 status post CABG, postoperative day #28 2 history of nicotine dependence and suspect some component of COPD 3 history of documented coronary artery disease based on a recent cardiac catheterization 4 history of percutaneous revascularization of the proximal right coronary artery in 2000 5 history of hypertension 6 history of myocardial infarction 7 status post bronchoscopy and bronchoalveolar lavage of the right upper lobe read lobe and right lower lobe upon arrival to the ICU. 8 failure to wean mostly secondary to relative hypoxemia, O2 saturation is very marginal, and it is in the 70s at 50%. And because of the mental status and suspected alcohol withdrawal is another major factor that delaying the weaning process. Proved, maintaining good O2 saturations on room air. 9 suspect acute alcohol withdrawal considering the patient is a heavy drinker Plan: The patient was seen and evaluated by Dr. Toro. He is stable from the pulmonary standpoint. Continue with his bronchodilators. Continue diuretics. Continue the increased use of the incentive spirometer and cough and deep breathing exercises. We'll increase his activity as tolerated. Continue to follow and make further recommendations based on his clinical status. Discharge planning is in place.
--- NOTE | 2016-12-07 15:01 | P.PN ---
Subjective Principal diagnosis: CABG This a 61-year-old gentleman who is status post coronary bypass grafting surgery. He had a prolonged stay in the intensive care unit on mechanical ventilator support. He has been in and out of atrial fibrillation but remains in normal sinus rhythm. He is currently being followed today on the telemetry unit. Overall doing well. He is currently on metoprolol tartrate , amiodarone, and Lanoxin. He is on Coumadin for anticoagulation, INR is 2.7 today. Hemoglobin 8.7, potassium 4.2, BUN 14, creatinine 0.7. Doing very well overall. Objective - Vital Signs Vital signs: Vital Signs Temp 97.2 F L 12/07/16 08:00 Pulse 68 12/07/16 13:18 Resp 14 12/07/16 12:00 BP 101/55 12/07/16 12:00 Pulse Ox 95 12/07/16 12:00 Intake & Output 12/06/16 12/07/16 12/07/16 18:59 06:59 18:59 Intake Total 574 20 355 Output Total 1550 600 Balance -976 20 -245 Weight 95 kg 95 kg Intake: IV 20 .9 NaCL 20 Intake, IV Titration 0 Amount Insulin Regular 100 unit 0 In Sodium Chloride 0.9% 100 ml @ Per Protocol IV .Q0M [facility] Rx#:[id number] Oral 574 355 Output: Urine 1550 600 Other: Voiding Method Indwelling Catheter # Bowel Movements 2 ABP, PAP, CO, CI - Last Documented Arterial Blood Pressure 172/58 Pulmonary Artery Pressure 46/23 Cardiac Output 6.8 Cardiac Index 3.3 - Exam PHYSICAL EXAMINATION: HEENT: Head is atraumatic, normocephalic. Pupils equal, round. Neck is supple. There is no elevated jugular venous pressure. HEART EXAMINATION: Heart S1, S2 normal. No murmur or gallop heard. CHEST EXAMINATION: lungs reveal fine crackles to bilateral bases. ABDOMEN: Soft, nontender. Bowel sounds are heard. No organomegaly noted. EXTREMITIES: 2+ peripheral pulses with no evidence of peripheral edema and no calf tenderness noted. NEUROLOGIC patient is awake, alert and oriented -3. . - Labs CBC & Chem 7: 12/07/16 05:37 12/07/16 05:37 Labs: Abnormal Lab Results - Last 24 Hours (Table) 12/06/16 12/06/16 12/07/16 Range/Units 16:31 21:05 05:37 RBC (4.30-5.90) m/uL Hgb (13.0-17.5) gm/dL Hct (39.0-53.0) % PT 25.8 H (9.0-12.0) sec POC Glucose (mg/dL) 156 H 151 H (75-99) mg/dL Calcium (8.4-10.2) mg/dL 12/07/16 12/07/16 12/07/16 Range/Units 05:37 05:37 06:23 RBC 2.70 L (4.30-5.90) m/uL Hgb 8.7 L (13.0-17.5) gm/dL Hct 26.1 L (39.0-53.0) % PT (9.0-12.0) sec POC Glucose (mg/dL) 102 H (75-99) mg/dL Calcium 8.3 L (8.4-10.2) mg/dL 12/07/16 Range/Units 11:40 RBC (4.30-5.90) m/uL Hgb (13.0-17.5) gm/dL Hct (39.0-53.0) % PT (9.0-12.0) sec POC Glucose (mg/dL) 175 H (75-99) mg/dL Calcium (8.4-10.2) mg/dL Assessment and Plan (1) S/P CABG (coronary artery bypass graft) Status: Acute (2) Nicotine dependence Status: Acute (3) CAD (coronary artery disease) Status: Acute (4) Failure to wean Status: Acute (5) Family history of heart disease Status: Acute (6) History of PTCA Status: Acute (7) Hyperlipidemia Status: Acute (8) Hypertension Status: Acute (9) Paroxysmal a-fib Status: Acute Plan: Cardiology's perspective, patient has been encouraged in the use of his incentive spirometry. His current medications have been reviewed we will continue with those. DNP note has been reviewed, I agree with a documented findings and plan of care. Patient was seen and examined.
[2016-12-07 16:37] LABS: Glucose,Whole Blood 150 mg/dL (75-99)
[2016-12-07] MEDS: LEVOFLOXACIN 750 MG TAB PO SCH (17:30)
[2016-12-07] MEDS ORDERED: WARFARIN 1 MG TAB PO ONE (18:00)
[2016-12-07 20:48] LABS: Glucose,Whole Blood 215 mg/dL (75-99)
[2016-12-07] MEDS: SENNOSIDES-DOCUSATE SODIUM 1 EACH TAB PO SCH (21:20)
[2016-12-07] MEDS: INSULIN DETEMIR 100 UNIT/ML 10 ML VIAL SQ SCH (21:21)
[2016-12-08 06:17] LABS: Glucose,Whole Blood 104 mg/dL (75-99)
[2016-12-08] MEDS: INSULIN LISPRO (humaLOG) 300 UNIT/3 ML VIAL SQ SCH ×4 (06:21→21:46)
[2016-12-08] MEDS: METOCLOPRAMIDE 5 MG/ML 2 ML VIAL IVP SCH ×4 (06:22→23:16)
[2016-12-08 06:38] LABS: INR 2.5 (<1.1); Prothrombin Time 23.7 sec (9.0-12.0)
[2016-12-08] MEDS: IPRATROPIUM-ALBUTEROL 3 ML NEB INHALATION SCH ×4 (08:40→20:30)
--- NOTE | 2016-12-08 08:50 | PN ---
Mr. Gonzalez is a 61-year-old male who underwent coronary artery bypass graft and had prolonged stay in the intensive care unit with ( ) ventilator support, currently extubated. The patient otherwise denied any complaint of chest pain or shortness of breath today. The patient is on and off for atrial fibrillation and cardiology and pulmonary are following this patient. Patient also does complain of left great toe pain. Today, no fever. No chills. Patient is on oral diet after swallow evaluation. Abdominal ileus has been resolved now. Patient is currently in the selective care unit. Denied any complaints of nausea or vomiting. No fever. No chills. No acute overnight issues. Complete review of systems negative except as above. Current medications include: 1. [place] 5/325. 2. DuoNeb. 3. Amiodarone. 4. Aspirin. 5. Lidocaine. 6. Hurricaine spray. 7. Dulcolax. 8. Colchicine. 9. Lasix. 10. Levemir. 11. Humalog. 12. Theragran. 13. Levofloxacin. 14. Zestril. 15. Milk of magnesia p.r.n. 16. Metoclopramide. 17. Metoprolol. 18. Protonix. 19. Zofran. 20. Senokot. 21. Zoloft. 22. Thiamine. PHYSICAL EXAMINATION: A 61-year-old female sitting in a chair comfortably. Awake, alert, oriented, x3, appears to be in no apparent distress. VITALS: Blood pressure is 92/55. Pulse 65. Respiratory rate 16, temperature afebrile. Pulse ox 96% on room air. HEENT: Atraumatic, normocephalic. Neck is supple. No JVD. CVS S1, S2 heard. No murmurs, no gallop. LUNGS: Bilateral air entry is present, crackles at the bases, nonlabored breathing. ABDOMEN: Soft, obese. Bowel sounds are present. No palpable organomegaly. 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 No ( ). EXTREMITIES: Bilateral trace edema. Pulses palpable bilaterally. No clubbing or cyanosis. PSYCHIATRIC: Cooperative. Left great toe slight warmth noted. Minimal redness as well. Tender to palpation. LABORATORY DATA: WBC 7.2, hemoglobin 8.7, platelets are 386, INR 2.7. Sodium 137, potassium 4.2, chloride 103, bicarb is 26. BUN 15, creatinine 0.7, blood sugar is 98, calcium 8.3. IMPRESSION: 1. Coronary artery disease, status post coronary artery bypass graft, postop day 27. 2. Acute hypoxic respiratory failure post surgery. Currently saturating on room air. 3. History of hypertension. Currently hypotensive. 4. Hyperlipidemia. 5. Paroxysmal atrial fibrillation, currently rate controlled on anticoagulation on Coumadin, therapeutic INR level. 6. History of significant alcohol use, status post prolonged episode of delirium tremens. 7. Diabetes mellitus with uncontrolled blood sugars. 8. Dysphagia is resolved. Currently tolerating oral intake. 9. Catarrhalis tracheobronchitis. 10. Ileus resolved. DISCUSSION AND PLAN: The patient will continue with insulin dosing and Coumadin dosing. Continue to monitor CBC. Continue the colchicine at this time p.r.n. for gouty arthritis and encourage incentive spirometry and encourage ambulation and follow closely. Further recommendations based on clinical course. MTDD
--- NOTE | 2016-12-08 08:53 | P.PN ---
<Nasra Whaley - Last Filed: 12/08/16 08:53> Subjective Principal diagnosis: Coronary artery disease, status post prior stenting to his right coronary artery. Preserved left ventricular function. Hyperlipidemia. Hypertension. ETOH abuse. POD #29 total arterial non-aortic patch off-pump double coronary artery bypass grafting using in situ skeletonized right internal mammary artery to the left anterior descending artery across the anterior midline in situ totally skeletonized left internal mammary artery to the first obtuse marginal artery. Intraoperative transesophageal echocardiogram and epi-aortic scanning. Intraoperative graft flow measurements using the [employer] system POD #29 flexible bronchoscopy with bronchial washings secondary to postoperative mucous plugging with increasing oxygen demand the night of surgery. Pt had acute hypoxic post operative respiratory failure as an unexpected post-surgical condition, related to the patient's underlying medical comorbidities. Unable to determine if ventilator associated pneumonia vs. trachobronchitis, an unexpected post-surgical condition. Sputum culture grew out Moraxella, blood cultures are negative to date, urine culture grew Klebsiella. Patient placed on Levaquin per pulmonology. Pt developed postoperative alcohol withdrawal requiring increased sedation and prolonged mechanical ventilation. Patient developed postoperative ileus, an unexpected post-surgical condition, currently resolved. General surgery consulted, no intervention at this time. Passed modified barium swallow. NGT removed. Placed on diet. TPN discontinued secondary to patient meeting caloric needs. Patient currently sitting up in bed in no apparent distress. Denies chest pain/ shortness of breath. States pain is controlled. Continues to tolerate his diet. Awaiting rehab placement. at bedside this morning, updated on progress. Objective - Vital Signs Vital signs: Vital Signs Temp 98.6 F 12/07/16 20:00 Pulse 60 12/08/16 04:00 Resp 16 12/08/16 04:00 BP 103/58 12/08/16 04:00 Pulse Ox 96 12/08/16 04:00 Intake & Output 12/07/16 12/08/16 12/08/16 18:59 06:59 18:59 Intake Total 355 10 Output Total 600 Balance -245 10 Weight 95 kg 94.5 kg Intake: IV 10 .9 NaCL 10 Oral 355 Output: Urine 600 Other: Voiding Method Indwelling Catheter ABP, PAP, CO, CI - Last Documented Arterial Blood Pressure 172/58 Pulmonary Artery Pressure 46/23 Cardiac Output 6.8 Cardiac Index 3.3 - Constitutional General appearance: Present: cooperative, no acute distress, obese - Respiratory Details: Lungs sounds diminished bilaterally. Respirations even, nonlabored. Currently on room air with oxygen saturation 96%. Able to achieve 1000 mL on his incentive spirometry. Effective cough. - Cardiovascular Details: S1, S2 present. Regular rate and rhythm, normal sinus rhythm on telemetry. Chest sternum stable superiorly, movable inferiorly. Heart hugger in place with patient demonstrating appropriate use. No peripheral edema present. - Gastrointestinal Gastrointestinal Comment(s): Abdomen soft, nontender, nondistended. Active bowel sounds 4 quadrants. Tolerating diet. Bowel movement 2 yesterday per patient. - Genitourinary Genitourinary Comment(s): Continues to void clear, yellow urine. - Integumentary Integumentary Comment(s): Anterior chest incision well approximated. - Musculoskeletal Musculoskeletal: Present: generalized weakness, strength equal bilaterally - Psychiatric Psychiatric: Present: A&O x's 3, appropriate affect, intact judgment & insight - Allied health notes Allied health notes reviewed: nursing - Labs CBC & Chem 7: 12/07/16 05:37 12/07/16 05:37 Labs: Abnormal Lab Results - Last 24 Hours (Table) 12/07/16 12/07/16 12/07/16 Range/Units 11:40 16:35 20:46 PT (9.0-12.0) sec POC Glucose (mg/dL) 175 H 150 H 215 H (75-99) mg/dL 12/08/16 12/08/16 Range/Units 05:53 06:17 PT 23.7 H (9.0-12.0) sec POC Glucose (mg/dL) 104 H (75-99) mg/dL Assessment and Plan (1) Status post coronary artery bypass graft Status: Acute (2) Coronary artery disease Status: Acute (3) Family history of heart disease Status: Acute (4) History of PTCA Status: Acute (5) Hyperlipidemia Status: Acute (6) Hypertension Status: Acute (7) Nicotine dependence, chewing tobacco, uncomplicated Status: Acute Plan: 1. Continue ASA, Lipitor, Lopressor, lisinopril, Coumadin, lasix.. 2. Continue amiodarone for atrial fibrillation prophylaxis. 3. INR 2.5 today, will give Coumadin 1 mg today. 4. Encourage incentive spirometry use. 5. Continue antibiotics per pulmonology. 6. Insulin/diabetic management per primary care service. 7. Increase activity, ambulate in hallway. Physical therapy following. 8. Labs every 3 days 9. GI/DVT prophylaxis. 10. Discharge planning in process. Patient will need rehabilitation upon discharge. Dr. Campos following patient Time with Patient: Greater than 30 <[email or web address] - Last Filed: 12/08/16 18:52> Objective - Vital Signs Vital signs: Vital Signs Temp 98.0 F 12/08/16 16:00 Pulse 68 12/08/16 16:28 Resp 16 12/08/16 16:00 BP 113/59 12/08/16 16:00 Pulse Ox 97 12/08/16 16:00 Intake & Output 12/07/16 12/08/16 12/08/16 18:59 06:59 18:59 Intake Total 355 10 660 Output Total 600 Balance -245 10 660 Weight 95 kg 94.5 kg 94.5 kg Intake: IV 10 .9 NaCL 10 Oral 355 660 Output: Urine 600 Other: Voiding Method Indwelling Catheter Indwelling Catheter ABP, PAP, CO, CI - Last Documented Arterial Blood Pressure 172/58 Pulmonary Artery Pressure 46/23 Cardiac Output 6.8 Cardiac Index 3.3 - Labs CBC & Chem 7: 12/07/16 05:37 12/07/16 05:37 Labs: Abnormal Lab Results - Last 24 Hours (Table) 12/07/16 12/08/16 12/08/16 Range/Units 20:46 05:53 06:17 PT 23.7 H (9.0-12.0) sec POC Glucose (mg/dL) 215 H 104 H (75-99) mg/dL 12/08/16 12/08/16 Range/Units 11:40 16:53 PT (9.0-12.0) sec POC Glucose (mg/dL) 136 H 103 H (75-99) mg/dL Assessment and Plan Plan: The patient was seen and examined. I agree with the above assessment and plan. There is no significant change in his care today. We will give him 1 mg of Coumadin for an INR of 2.5. We are awaiting inpatient rehab placement. He may be discharged once he is accepted. Otherwise we will continue with physical therapy.
[2016-12-08] MEDS: ASPIRIN 325 MG TAB PO SCH (09:15)
[2016-12-08] MEDS: FUROSEMIDE 40 MG TAB PO SCH (09:15)
[2016-12-08] MEDS: ATORVASTATIN 40 MG TAB PO SCH (09:15)
[2016-12-08] MEDS: METOPROLOL TARTRATE 50 MG TAB PO SCH ×2 (09:15→21:46)
[2016-12-08] MEDS: THIAMINE 100 MG TAB PO SCH ×2 (09:15→21:46)
[2016-12-08] MEDS: PANTOPRAZOLE 40 MG TABLET PO SCH (09:16)
[2016-12-08] MEDS: LISINOPRIL 10 MG TAB PO SCH ×2 (09:16→21:46)
[2016-12-08] MEDS: SERTRALINE 50 MG TAB PO SCH (09:16)
[2016-12-08] MEDS: AMIODARONE 200 MG TAB PO SCH (09:16)
[2016-12-08 09:18] VITALS: BMI 30.7
[2016-12-08 11:45] LABS: Glucose,Whole Blood 136 mg/dL (75-99)
[2016-12-08] MEDS: MULTIVITAMINS, THERA LIQUID 237 ML BOTTLE PO SCH (12:28)
--- NOTE | 2016-12-08 13:55 | P.PN ---
Subjective Principal diagnosis: Status post coronary artery bypass grafting, postoperative day #29 This is a 61-year-old white male status post CABG, total arterial non-aortic patch off pump double coronary artery bypass grafting using in situ skeletonized right internal mammary artery to the left anterior descending across the anterior midline in situ totally skeletonized left internal mammary artery to the first obtuse marginal artery. His postoperative day #28. The patient is seen again today 12/07/2016 in follow-up on the selective care unit. He is much more awake and alert. He is able to stand at the bedside with assistance. He is currently sitting up at the bedside. He is tolerating his lunch well. He denies any shortness breath, cough or congestion. He is maintaining good O2 saturations in the upper 90s on room air. Afebrile. Gold and stable at 8.7. INR 2.7. The patient is seen again today 12/08/2016 in follow-up on the selective care unit. This is postoperative day #29. He is more awake and alert. He is currently sitting up in the chair at the bedside. Eyes any worsening shortness of breath, cough or congestion. Maintaining O2 saturations in the low 90s on room air. He has been afebrile. He has been working well with physical therapy. Objective - Vital Signs Vital signs: Vital Signs Temp 98.2 F 12/08/16 11:26 Pulse 68 12/08/16 13:13 Resp 16 12/08/16 12:00 BP 120/58 12/08/16 11:26 Pulse Ox 94 L 12/08/16 11:26 Intake & Output 12/07/16 12/08/16 12/08/16 18:59 06:59 18:59 Intake Total 355 10 660 Output Total 600 Balance -245 10 660 Weight 95 kg 94.5 kg 94.5 kg Intake: IV 10 .9 NaCL 10 Oral 355 660 Output: Urine 600 Other: Voiding Method Indwelling Catheter Indwelling Catheter ABP, PAP, CO, CI - Last Documented Arterial Blood Pressure 172/58 Pulmonary Artery Pressure 46/23 Cardiac Output 6.8 Cardiac Index 3.3 - Exam GENERAL EXAM: Awake, alert. No acute distress. HEAD: Normocephalic. EYES: Sluggish reaction of pupils, equal size. NOSE: Clear with pink turbinates. THROAT: No erythema or exudates. NECK: No masses, no JVD. CHEST: No chest wall deformity. LUNGS: Equal air entry with faint crackles in the bilateral posterior bases, more so on the left. CVS: S1 and S2 normal with no audible murmurs, regular rhythm. ABDOMEN: No hepatosplenomegaly, normal bowel sounds, no guarding or rigidity. Extremities: There is trace peripheral edema. No clubbing, no cyanosis. Peripheral pulses are intact. - Labs CBC & Chem 7: 12/07/16 05:37 12/07/16 05:37 Labs: Abnormal Lab Results - Last 24 Hours (Table) 12/07/16 12/07/16 12/08/16 Range/Units 16:35 20:46 05:53 PT 23.7 H (9.0-12.0) sec POC Glucose (mg/dL) 150 H 215 H (75-99) mg/dL 12/08/16 12/08/16 Range/Units 06:17 11:40 PT (9.0-12.0) sec POC Glucose (mg/dL) 104 H 136 H (75-99) mg/dL Assessment and Plan Plan: Impression: 1 status post CABG, postoperative day #29 2 history of nicotine dependence and suspect some component of COPD 3 history of documented coronary artery disease based on a recent cardiac catheterization 4 history of percutaneous revascularization of the proximal right coronary artery in 2000 5 history of hypertension 6 history of myocardial infarction 7 status post bronchoscopy and bronchoalveolar lavage of the right upper lobe read lobe and right lower lobe upon arrival to the ICU. 8 failure to wean mostly secondary to relative hypoxemia, O2 saturation is very marginal, and it is in the 70s at 50%. And because of the mental status and suspected alcohol withdrawal is another major factor that delaying the weaning process. Proved, maintaining good O2 saturations on room air. 9 suspect acute alcohol withdrawal considering the patient is a heavy drinker Plan: The patient was seen and evaluated by Dr. Toro. Continue with his bronchodilators. Continue diuretics. Continue the increased use of the incentive spirometer and cough and deep breathing exercises. We'll increase his activity as tolerated. Continue to follow and make further recommendations based on his clinical status. He is awaiting placement for inpatient rehabilitation.
--- NOTE | 2016-12-08 15:14 | P.PN ---
Subjective Principal diagnosis: CABG This a 61-year-old gentleman who is status post coronary bypass grafting surgery. He had a prolonged stay in the intensive care unit on mechanical ventilator support. He has been in and out of atrial fibrillation but remains in normal sinus rhythm. He is currently being followed today on the telemetry unit. Overall doing well. He is currently on metoprolol tartrate , amiodarone, and Lanoxin. He is on Coumadin for anticoagulation, INR is 2.5 today. Doing very well overall. Up with physical therapy today. Objective - Vital Signs Vital signs: Vital Signs Temp 98.2 F 12/08/16 11:26 Pulse 68 12/08/16 13:13 Resp 16 12/08/16 12:00 BP 120/58 12/08/16 11:26 Pulse Ox 94 L 12/08/16 11:26 Intake & Output 12/07/16 12/08/16 12/08/16 18:59 06:59 18:59 Intake Total 355 10 660 Output Total 600 Balance -245 10 660 Weight 95 kg 94.5 kg 94.5 kg Intake: IV 10 .9 NaCL 10 Oral 355 660 Output: Urine 600 Other: Voiding Method Indwelling Catheter Indwelling Catheter ABP, PAP, CO, CI - Last Documented Arterial Blood Pressure 172/58 Pulmonary Artery Pressure 46/23 Cardiac Output 6.8 Cardiac Index 3.3 - Exam PHYSICAL EXAMINATION: HEENT: Head is atraumatic, normocephalic. Pupils equal, round. Neck is supple. There is no elevated jugular venous pressure. HEART EXAMINATION: Heart S1, S2 normal. No murmur or gallop heard. CHEST EXAMINATION: lungs reveal fine crackles to bilateral bases. ABDOMEN: Soft, nontender. Bowel sounds are heard. No organomegaly noted. EXTREMITIES: 2+ peripheral pulses with no evidence of peripheral edema and no calf tenderness noted. NEUROLOGIC patient is awake, alert and oriented -3. . - Labs CBC & Chem 7: 12/07/16 05:37 12/07/16 05:37 Labs: Abnormal Lab Results - Last 24 Hours (Table) 12/07/16 12/07/16 12/08/16 Range/Units 16:35 20:46 05:53 PT 23.7 H (9.0-12.0) sec POC Glucose (mg/dL) 150 H 215 H (75-99) mg/dL 12/08/16 12/08/16 Range/Units 06:17 11:40 PT (9.0-12.0) sec POC Glucose (mg/dL) 104 H 136 H (75-99) mg/dL Assessment and Plan (1) S/P CABG (coronary artery bypass graft) Status: Acute (2) Nicotine dependence Status: Acute (3) CAD (coronary artery disease) Status: Acute (4) Failure to wean Status: Acute (5) Family history of heart disease Status: Acute (6) History of PTCA Status: Acute (7) Hyperlipidemia Status: Acute (8) Hypertension Status: Acute (9) Paroxysmal a-fib Status: Acute Plan: Cardiology's perspective, patient has been encouraged in the use of his incentive spirometry. His current medications have been reviewed we will continue with those. DNP note has been reviewed, I agree with a documented findings and plan of care. Patient was seen and examined.
[2016-12-08 17:17] LABS: Glucose,Whole Blood 103 mg/dL (75-99)
[2016-12-08] MEDS: LEVOFLOXACIN 750 MG TAB PO SCH (17:30)
[2016-12-08] MEDS ORDERED: WARFARIN 1 MG TAB PO ONE (18:00)
[2016-12-08 21:36] LABS: Glucose,Whole Blood 142 mg/dL (75-99)
[2016-12-08] MEDS: INSULIN DETEMIR 100 UNIT/ML 10 ML VIAL SQ SCH (21:45)
[2016-12-08] MEDS: SENNOSIDES-DOCUSATE SODIUM 1 EACH TAB PO SCH (21:46)
[2016-12-09 01:59] LABS: Glucose,Whole Blood 89 mg/dL (75-99)
[2016-12-09] MEDS: METOCLOPRAMIDE 5 MG/ML 2 ML VIAL IVP SCH ×2 (05:11→12:16)
[2016-12-09 05:57] LABS: Glucose,Whole Blood 105 mg/dL (75-99)
[2016-12-09 06:22] LABS: INR 2.1 (<1.1); Prothrombin Time 20.5 sec (9.0-12.0)
[2016-12-09] MEDS: INSULIN LISPRO (humaLOG) 300 UNIT/3 ML VIAL SQ SCH ×2 (06:34→12:17)
--- NOTE | 2016-12-09 09:02 | PN ---
DATE OF SERVICE: 12/08/2016 INTERVAL HISTORY: Mr. Gonzalez is a 61-year-old male who underwent coronary artery bypass graft. He had a prolonged stay in the intensive care unit due to hypoxemia and unable to wean. The patient underwent ( ) in the ER. Currently the patient is extubated and transferred to selective care unit. Patient's respiratory status has been stable at this time. The patient is also atrial fibrillation, currently maintained in sinus rhythm. Patient also had ileus, which has been resolved as well. Currently, patient is complaining of left great toe pain, for which the patient is being treated for gouty arthritis. Otherwise, no fever. No chills. No acute overnight issues. Patient will most likely be discharged to cardiac rehabilitation. REVIEW OF SYSTEM: CONSTITUTIONAL: No fevers, chills, weakness. RESPIRATORY: No cough or sputum production. CARDIOVASCULAR: No chest pain. No shortness of breath. Patient does have leg swelling. ABDOMEN: No nausea, vomiting, abdominal pain. GENITOURINARY: Negative. ENDOCRINE: Negative. PSYCHIATRY: Negative. All other 14-point review of systems is negative except as above. Current medications are reviewed. PHYSICAL EXAMINATION: A 61-year-old male, sitting in a chair comfortably. Awake, alert, oriented x3. He appears to be in no apparent distress. VITALS: Blood pressure is 113/59, pulse is 58, respirations 16, temperature afebrile, pulse ox 97% on room air. HEENT: Atraumatic, normocephalic. NECK: Supple. No JVD. CVS: S1, S2 heard. No murmurs, no gallops. LUNGS: Bilateral air entry is present. No wheezing. No crackles. Nonlabored breathing. ABDOMEN: Soft, nontender. Bowel sounds heard. SAIL CUTTER: Awake, alert, oriented x3. EXTREMITIES: Bilateral lower extremity 2+ edema. Pulses palpable bilaterally. No clubbing or cyanosis. PSYCHIATRY: Cooperative. LABORATORY DATA: Reviewed. IMPRESSION: 1. Coronary artery disease, status post coronary artery bypass, postop day 29. 2. Acute hypoxic respiratory failure post surgery, currently on room air, extubated. 3. Hypertension. 4. Hyperlipidemia. 5. Atrial fibrillation, on anticoagulation with Coumadin. 6. History of severe alcohol abuse. Prolonged episode of delirium tremens in the ICU. 7. Diabetes mellitus with uncontrolled blood sugars. 8. Dysphagia, resolved. 9. Moraxella catarrhalis tracheobronchitis, improved now. 10. Ileus, resolved. DISCUSSION AND PLAN: The patient will be continued on current management including ( ) dosing and Coumadin dosing. Increase ambulation. Continue with the incentive spirometry. Possible transfer to cardiac rehabilitation. Continue current management.
[2016-12-09] MEDS: FUROSEMIDE 40 MG TAB PO SCH (09:12)
[2016-12-09] MEDS: ASPIRIN 325 MG TAB PO SCH (09:12)
[2016-12-09] MEDS: LISINOPRIL 10 MG TAB PO SCH (09:12)
[2016-12-09] MEDS: ATORVASTATIN 40 MG TAB PO SCH (09:12)
[2016-12-09] MEDS: AMIODARONE 200 MG TAB PO SCH (09:12)
[2016-12-09] MEDS: PANTOPRAZOLE 40 MG TABLET PO SCH (09:13)
[2016-12-09] MEDS: METOPROLOL TARTRATE 50 MG TAB PO SCH (09:13)
[2016-12-09] MEDS: SERTRALINE 50 MG TAB PO SCH (09:13)
[2016-12-09] MEDS: MULTIVITAMINS, THERA LIQUID 237 ML BOTTLE PO SCH (09:14)
[2016-12-09] MEDS: THIAMINE 100 MG TAB PO SCH (09:14)
[2016-12-09] MEDS: IPRATROPIUM-ALBUTEROL 3 ML NEB INHALATION SCH ×2 (09:20→14:14)
[2016-12-09 11:35] LABS: Glucose,Whole Blood 139 mg/dL (75-99)
--- NOTE | 2016-12-09 11:52 | P.PN ---
<Madhu Brush - Last Filed: 12/09/16 11:30> Progress Note - Text CV Surgery Nursing Principal diagnosis: Coronary artery disease, status post prior stenting to his right coronary artery. Preserved left ventricular function. Hyperlipidemia. Hypertension. ETOH abuse. POD #30 total arterial non-aortic patch off-pump double coronary artery bypass grafting using in situ skeletonized right internal mammary artery to the left anterior descending artery across the anterior midline in situ totally skeletonized left internal mammary artery to the first obtuse marginal artery. Intraoperative transesophageal echocardiogram and epi-aortic scanning. Intraoperative graft flow measurements using the [employer] system POD #30 flexible bronchoscopy with bronchial washings secondary to postoperative mucous plugging with increasing oxygen demand the night of surgery. Pt had acute hypoxic post operative respiratory failure as an unexpected post-surgical condition, related to the patient's underlying medical comorbidities. Unable to determine if ventilator associated pneumonia vs. trachobronchitis, an unexpected post-surgical condition. Sputum culture grew out Moraxella, blood cultures are negative to date, urine culture grew Klebsiella. Patient placed on Levaquin per pulmonology. Patientt developed postoperative alcohol withdrawal requiring increased sedation and prolonged mechanical ventilation. Patient developed postoperative ileus, an unexpected post-surgical condition, currently resolved. General surgery consulted, no intervention at this time. Passed modified barium swallow. NGT removed. Placed on diet. TPN discontinued secondary to patient meeting caloric needs. He is tolerating an oral diet at this time. Patient awake and alert, no distress noted, no specific complaints. He is sitting up to the bedside chair. The patient's is at his bedside. Vital Signs: Afebrile Vital Signs - 24 hr 12/08/16 12/08/16 12/08/16 12:00 13:02 13:13 Temperature Pulse Rate 68 68 Pulse Rate [ 67 Sock Ironer ] Respiratory 16 Rate Blood Pressure [Right Arm Sitting] O2 Sat by Pulse Oximetry 12/08/16 12/08/16 12/08/16 16:00 16:16 16:28 Temperature 98.0 F Pulse Rate 67 68 Pulse Rate [ 58 L Sock Ironer ] Respiratory 16 Rate Blood Pressure 113/59 [Right Arm Sitting] O2 Sat by Pulse 97 Oximetry 12/08/16 12/09/16 12/09/16 20:00 00:00 04:00 Temperature 98.0 F Pulse Rate Pulse Rate [ 66 65 64 Sock Ironer ] Respiratory 18 18 16 Rate Blood Pressure 106/59 107/58 111/59 [Right Arm Sitting] O2 Sat by Pulse 98 96 94 L Oximetry Labs: ABG ABG pH 7.46 (7.35-7.45) H 11/24/16 05:19 ABG pCO2 30 mmHg (35-45) L 11/24/16 05:19 ABG pO2 108 mmHg (83-108) 11/24/16 05:19 ABG O2 Saturation 99.0 % (94-97) H 11/24/16 05:19 PT/INR, D-dimer PT 20.5 sec (9.0-12.0) H 12/09/16 05:37 INR 2.1 (<1.1) 12/09/16 05:37 Lungs: Essentially clear throughout, with few scattered expiratory wheezes and diminished to his bilateral bases. Respirations are symmetrical and unlabored. O2 sat: 94% on room air. I/S: 1000 mL, reviewed with the patient important of using his incentive spirometry every hour while awake. The patient did demonstrate proper use of his incentive spirometry but will need further coaching and encouragement to use his incentive spirometry. Heart: S1S2, regular rhythm and rate, negative for S3, gallop or murmur. Remote telemetry showing normal sinus rhythm heart rate 65. Sternum stable, chest incision clean with dressing clean and dry. His incision is well approximated. Heart hugger in place. The patient is demonstrating proper use of his heart hugger but he will need further coaching and encouragement on the use of his heart hugger. Abdomen: Soft, Positive bowel sounds present in all 4 quadrants. Last bowel movement 12/06/2016. CBGs: 89-142 mg/dL in the last 24 hours. U/O: Adequate, 24 hr Total: Intake & Output 12/07/16 12/08/16 12/09/16 12/10/16 06:59 06:59 06:59 06:59 Intake Total 594 365 680 Output Total 1550 600 400 Balance -956 -235 280 Weight 95 kg 94.5 kg 95 kg Active Medications Hydrocodone Bitart/Acetaminophen ([place] 5-325) 1 each PO Q4HR PRN PRN Reason: Pain Last Admin: 12/07/16 21:25 Dose: 1 each Hydrocodone Bitart/Acetaminophen ([place] 5-325) 2 each PO Q4HR PRN PRN Reason: MODERATE TO SEVERE PAIN Albuterol/Ipratropium (Duoneb 0.5 Mg-3 Mg/3 Ml Soln) 3 ml INHALATION RT-QID [facility] Last Admin: 12/09/16 09:20 Dose: Not Given Albuterol/Ipratropium (Duoneb 0.5 Mg-3 Mg/3 Ml Soln) 3 ml INHALATION RT-QID PRN PRN Reason: Shortness Of Breath Or Wheezing Last Admin: 11/26/16 23:10 Dose: 3 ml Amiodarone HCl (Cordarone) 200 mg PO DAILY [facility] Last Admin: 12/09/16 09:12 Dose: 200 mg Aspirin (Aspirin) 325 mg PO DAILY [facility] Last Admin: 12/09/16 09:12 Dose: 325 mg Atorvastatin Calcium (Lipitor) 40 mg PO DAILY [facility] Last Admin: 12/09/16 09:12 Dose: 40 mg Benzocaine (Hurricaine [place]) 1 applic MUCOUS MEM QID PRN PRN Reason: Mouth Irritation Last Admin: 11/14/16 11:36 Dose: 1 applic Bisacodyl (Dulcolax) 10 mg RECTAL DAILY PRN PRN Reason: Constipation Last Admin: 11/16/16 17:18 Dose: 10 mg Colchicine (Colcrys) 0.6 mg PO BID PRN PRN Reason: Gout pain Last Admin: 12/07/16 06:34 Dose: 0.6 mg Furosemide (Lasix) 40 mg PO DAILY [facility] Last Admin: 12/09/16 09:12 Dose: 40 mg Insulin Detemir (Levemir) 10 unit SQ HS [facility] Last Admin: 12/08/16 21:45 Dose: 10 unit Insulin Human Lispro (Humalog) 0 unit SQ ACHS [facility] PRN Reason: Protocol Last Admin: 12/09/16 06:34 Dose: Not Given Iron/Minerals/Multivitamins (Theragran Liquid) 15 ml PO DAILY@1200 [facility] Last Admin: 12/09/16 09:14 Dose: 15 ml Lisinopril (Zestril) 10 mg PO BID [facility] Last Admin: 12/09/16 09:12 Dose: 10 mg Magnesium Hydroxide (Milk Of Magnesia) 2,400 mg PO BID PRN PRN Reason: Constipation Metoclopramide HCl (Reglan) 10 mg IVP Q6HR [facility] Last Admin: 12/09/16 05:11 Dose: 10 mg Metoprolol Tartrate (Lopressor) 50 mg PO BID [facility] Last Admin: 12/09/16 09:13 Dose: 50 mg Miscellaneous Information (Magnesium Per Protocol) 1 each MISCELLANE DAILY PRN ; Protocol PRN Reason: Per Protocol Miscellaneous Information (Phosphorus Per Protocol) 1 each MISCELLANE DAILY PRN ; Protocol PRN Reason: Per Protocol Miscellaneous Information (Potassium Per Protocol) 1 each MISCELLANE DAILY PRN ; Protocol PRN Reason: Per Protocol Ondansetron HCl (Zofran) 4 mg IVP Q6HR PRN PRN Reason: Nausea And Vomiting Pantoprazole Sodium (Protonix) 40 mg PO DAILY [facility] Last Admin: 12/09/16 09:13 Dose: 40 mg Senna/Docusate Sodium (Senokot-S) 2 each PO HS [facility] Last Admin: 12/08/16 21:46 Dose: 2 each Sertraline HCl (Zoloft) 50 mg PO DAILY [facility] Last Admin: 12/09/16 09:13 Dose: 50 mg Sodium Chloride (Saline Flush) 10 ml IV BID [facility] Last Admin: 12/09/16 09:13 Dose: 10 ml Sodium Chloride (Saline Flush) 10 ml IV WEEKLY [facility] Last Admin: 12/08/16 09:17 Dose: Not Given Sodium Chloride (Saline Flush) 10 ml IV Q4HR PRN PRN Reason: PICC Line Thiamine HCl (Vitamin B-1) 100 mg PO BID [facility] Last Admin: 12/09/16 09:14 Dose: 100 mg Warfarin Sodium (Coumadin) 3 mg PO ONCE@1800 ONE Stop: 12/09/16 18:01 Plan: 1. Continue ASA, Lipitor, Lopressor, lisinopril, lasix. 2. Continue amiodarone for atrial fibrillation prophylaxis. 3. INR 2.1 today, will give Coumadin 3 mg today. 4. Encourage incentive spirometry use every hour while awake. 5. We will discontinue the Levaquin today per Dr. Toro from pulmonary medicine. 6. Insulin/diabetic management per primary care service. 7. Increase activity, ambulate in hallway. Physical therapy following. 8. Labs every 3 days, daily PT and INR. 9. GI/DVT prophylaxis. 10. Two-view chest x-ray in a.m. 11. Discharge planning in process. Patient will need rehabilitation upon discharge. [facility] certified rehabilitation counselor in assessing the patient this morning. <Thaddeus Kessler - Last Filed: 12/09/16 15:15> Progress Note - Text The patient was seen and examined. I agree with the above assessment and plan. We will give him 3 mg of Coumadin for an INR of 2.1. Antibiotics will be discontinued per pulmonary. He will be discharged to rehab today.
--- NOTE | 2016-12-09 11:56 | P.PN ---
Subjective Principal diagnosis: Status post coronary artery bypass grafting, postoperative day #30 This is a 61-year-old white male status post CABG, total arterial non-aortic patch off pump double coronary artery bypass grafting using in situ skeletonized right internal mammary artery to the left anterior descending across the anterior midline in situ totally skeletonized left internal mammary artery to the first obtuse marginal artery. His postoperative day #28. The patient is seen again today 12/07/2016 in follow-up on the selective care unit. He is much more awake and alert. He is able to stand at the bedside with assistance. He is currently sitting up at the bedside. He is tolerating his lunch well. He denies any shortness breath, cough or congestion. He is maintaining good O2 saturations in the upper 90s on room air. Afebrile. Gold and stable at 8.7. INR 2.7. The patient is seen again today 12/08/2016 in follow-up on the selective care unit. This is postoperative day #29. He is more awake and alert. He is currently sitting up in the chair at the bedside. Denies any worsening shortness of breath, cough or congestion. Maintaining O2 saturations in the low 90s on room air. He has been afebrile. He has been working well with physical therapy. He is seen again today 12/09/2016 in follow-up. He is currently sitting up in the chair at the bedside. He is awake and alert in no acute distress. Working well with physical therapy. He spent maintaining good O2 saturations in the 90s on room air. He's been afebrile. INR 2.1. Objective - Vital Signs Vital signs: Vital Signs Temp 98.0 F 12/08/16 20:00 Pulse 64 12/09/16 04:00 Resp 16 12/09/16 04:00 BP 111/59 12/09/16 04:00 Pulse Ox 94 L 12/09/16 04:00 Intake & Output 12/08/16 12/09/16 12/09/16 18:59 06:59 18:59 Intake Total 660 20 Output Total 400 Balance 660 -380 Weight 94.5 kg 95 kg Intake: IV 20 .9 NaCL 20 Oral 660 Output: Urine 400 Other: Voiding Method Indwelling Catheter # Voids 1 ABP, PAP, CO, CI - Last Documented Arterial Blood Pressure 172/58 Pulmonary Artery Pressure 46/23 Cardiac Output 6.8 Cardiac Index 3.3 - Exam GENERAL EXAM: Awake, alert. No acute distress. HEAD: Normocephalic. EYES: Sluggish reaction of pupils, equal size. NOSE: Clear with pink turbinates. THROAT: No erythema or exudates. NECK: No masses, no JVD. CHEST: No chest wall deformity. LUNGS: Equal air entry with faint crackles in the bilateral posterior bases, more so on the left. CVS: S1 and S2 normal with no audible murmurs, regular rhythm. ABDOMEN: No hepatosplenomegaly, normal bowel sounds, no guarding or rigidity. Extremities: There is trace peripheral edema. No clubbing, no cyanosis. Peripheral pulses are intact. - Labs CBC & Chem 7: 12/07/16 05:37 12/07/16 05:37 Labs: Abnormal Lab Results - Last 24 Hours (Table) 12/08/16 12/08/16 12/09/16 Range/Units 16:53 21:35 05:37 PT 20.5 H (9.0-12.0) sec POC Glucose (mg/dL) 103 H 142 H (75-99) mg/dL 12/09/16 12/09/16 Range/Units 05:55 11:34 PT (9.0-12.0) sec POC Glucose (mg/dL) 105 H 139 H (75-99) mg/dL Assessment and Plan Plan: Impression: 1 status post CABG, postoperative day #30 2 history of nicotine dependence and suspect some component of COPD 3 history of documented coronary artery disease based on a recent cardiac catheterization 4 history of percutaneous revascularization of the proximal right coronary artery in 2000 5 history of hypertension 6 history of myocardial infarction 7 status post bronchoscopy and bronchoalveolar lavage of the right upper lobe read lobe and right lower lobe upon arrival to the ICU. 8 failure to wean mostly secondary to relative hypoxemia, Improved, maintaining good O2 saturations on room air. 9 suspect acute alcohol withdrawal considering the patient is a heavy drinker Plan: The patient was seen and evaluated by Dr. Toro. Continue with his bronchodilators. Continue the increased use of the incentive spirometer and cough and deep breathing exercises. We'll increase his activity as tolerated. Continue to follow and make further recommendations based on his clinical status. He is awaiting placement for inpatient rehabilitation.
--- NOTE | 2016-12-09 13:40 | P.PN ---
Subjective Principal diagnosis: CABG This a 61-year-old gentleman who is status post coronary bypass grafting surgery. He had a prolonged stay in the intensive care unit on mechanical ventilator support. He has been in and out of atrial fibrillation but remains in normal sinus rhythm. He is currently being followed today on the telemetry unit. Overall doing well. He is currently on metoprolol tartrate , amiodarone, and Lanoxin. He is on Coumadin for anticoagulation, INR is 2.1 today. Doing very well overall. Possible transferred to [facility] rehab today. Objective - Vital Signs Vital signs: Vital Signs Temp 98.0 F 12/08/16 20:00 Pulse 64 12/09/16 04:00 Resp 16 12/09/16 04:00 BP 111/59 12/09/16 04:00 Pulse Ox 94 L 12/09/16 04:00 Intake & Output 12/08/16 12/09/16 12/09/16 18:59 06:59 18:59 Intake Total 660 20 960 Output Total 400 850 Balance 660 -380 110 Weight 94.5 kg 95 kg Intake: IV 20 .9 NaCL 20 Oral 660 960 Output: Urine 400 850 Other: Voiding Method Indwelling Catheter # Voids 1 2 # Bowel Movements 1 ABP, PAP, CO, CI - Last Documented Arterial Blood Pressure 172/58 Pulmonary Artery Pressure 46/23 Cardiac Output 6.8 Cardiac Index 3.3 - Exam PHYSICAL EXAMINATION: HEENT: Head is atraumatic, normocephalic. Pupils equal, round. Neck is supple. There is no elevated jugular venous pressure. HEART EXAMINATION: Heart S1, S2 normal. No murmur or gallop heard. CHEST EXAMINATION: lungs reveal fine crackles to bilateral bases. ABDOMEN: Soft, nontender. Bowel sounds are heard. No organomegaly noted. EXTREMITIES: 2+ peripheral pulses with no evidence of peripheral edema and no calf tenderness noted. NEUROLOGIC patient is awake, alert and oriented -3. . - Labs CBC & Chem 7: 12/07/16 05:37 12/07/16 05:37 Labs: Abnormal Lab Results - Last 24 Hours (Table) 12/08/16 12/08/16 12/09/16 Range/Units 16:53 21:35 05:37 PT 20.5 H (9.0-12.0) sec POC Glucose (mg/dL) 103 H 142 H (75-99) mg/dL 12/09/16 12/09/16 Range/Units 05:55 11:34 PT (9.0-12.0) sec POC Glucose (mg/dL) 105 H 139 H (75-99) mg/dL Assessment and Plan (1) S/P CABG (coronary artery bypass graft) Status: Acute (2) Nicotine dependence Status: Acute (3) CAD (coronary artery disease) Status: Acute (4) Failure to wean Status: Acute (5) Family history of heart disease Status: Acute (6) History of PTCA Status: Acute (7) Hyperlipidemia Status: Acute (8) Hypertension Status: Acute (9) Paroxysmal a-fib Status: Acute Plan: Cardiology's perspective, patient has been encouraged in the use of his incentive spirometry. His current medications have been reviewed we will continue with those. DNP note has been reviewed, I agree with a documented findings and plan of care. Patient was seen and examined.
[2016-12-09 16:16] VITALS: PULSE 57
[2016-12-09 16:17] VITALS: BP 102/55; RESP 18; TEMP 98.8
--- NOTE | 2016-12-09 16:19 | P.DS ---
Providers Date of admission: 11/10/16 05:40 Attending physician: Ollie Ortega Consults: 11/10/16 13:56 Consult Physician Routine Consulting Provider: Amira Jung Consult Reason/Comments: Night Clerk Auditor Consult: post cardiac surgery Do you want consulting provider notified?: Yes Consult Physician Routine Consulting Provider: Ashley Jordan Consult Reason/Comments: medical management Do you want consulting provider notified?: Yes Consult Physician Routine Consulting Provider: Mable Gilman Consult Reason/Comments: Foam Charger Consult: post cardiac surgery Do you want consulting provider notified?: Yes 12/05/16 08:21 Consult Physician Routine Consulting Provider: Lonny Campos Consult Reason/Comments: rehab placement Do you want consulting provider notified?: Yes Primary care physician: Juancarlos Townsend [facility] Course: FINAL DIAGNOSIS: 1.[Symptomatic multivessel coronary artery disease, status post prior stenting to his right coronary artery in 2000.] 2.[Preserved left ventricular function] 3.[Hypertension ] 4.[Hyperlipidemia] 5.[EtOH abuse] 6.[History of nicotine dependence] 7.[Postoperative ileus, resolved] 8.[Postoperative paroxysmal atrial fibrillation] 9.[Postoperative acute tracheobronchitis with positive culture for Moraxella Catarra] 10.[Postoperative acute right lung collapse secondary to mucous plugging involving mostly the right upper lobe and right middle lobe] 11.[Postoperative acute hypoxic respiratory failure with prolonged mechanical ventilator dependence.] PRINCIPAL PROCEDURE: 1.[Elective total arterial non-aortic touch off-pump double coronary artery bypass grafting using the in situ skeletonized right internal mammary artery to the left anterior descending coronary artery across the anterior midline, in situ totally skeletonized left internal mammary artery to the first obtuse marginal coronary artery.] 2.[Intraoperative transesophageal echocardiogram and epi-aortic scanning] 3.[Intraoperative graft flow measurement using the medistim system] 4.[Bronchoscopy and bronchial Alveolar lavage of the right upper lobe, right middle lobe and right lower lobe] 5.[Insertion of peripherally inserted central catheter] HISTORY OF PRESENT ILLNESS: [This is a 61-year-old gentleman who is followed by Dr. Juancarlos Townsend on an outpatient basis. The patient has a history of coronary artery disease with previous stenting to his right coronary artery in 2000. He has been followed closely on an outpatient basis by Dr. Gilman from [facility]. Recently, he has had complaints of progressive chest pain and dyspnea particularly with exertion. Subsequently the patient underwent a stress test on 10/17/2016 which showed him to have a fixed anteroapical defect. Due to the patient's above-mentioned symptoms and history of coronary artery disease the patient underwent a 2-D echocardiogram on 2016 which showed trace tricuspid regurgitation, borderline concentric left ventricular hypertrophy, and an overall left ventricular systolic function to be normal with an ejection fraction of 50-55%. Also on 11/03/2016 the patient underwent elective heart catheterization which demonstrated a 50-60% stenosis to his left main coronary artery, a 99% stenosis to the takeoff of his left anterior descending coronary artery and a 60-70% proximal left anterior descending coronary artery stenosis, his first obtuse marginal coronary artery showed a 95% stenosis in his right coronary artery demonstrated a 40% stenosis. Also during the heart catheterization a left ventriculogram was repleted which demonstrated mild anterior apical hypokinesis with an estimated ejection fraction of 45-50%. The above-mentioned studies were reviewed with the patient by Dr. Gilman and by Dr. Ortega an elective coronary artery bypass grafting surgery was recommended.] HOSPITAL COURSE:[ The patient was admitted to the hospital and after obtaining consent he was taken to the operating room by Dr. Ollie Ortega with the patient underwent an elective total arterial non-aortic touch off-pump double coronary artery bypass grafting using the in situ skeletonized right internal mammary artery to the left anterior descending coronary artery across the anterior midline, in situ totally skeletonized left internal mammary artery to the first obtuse marginal coronary artery. Patient also underwent an intraoperative transesophageal echocardiogram and epi-aortic scanning, and graft flow measurement using the [employer] Software[employer] system. Postoperatively the patient was transferred to the cardiovascular intensive care unit where he had somewhat of a stormy recovery. Upon his arrival to the cardiovascular intensive care unit he developed a mucous plug involving the right upper lobe and right middle lobe requiring a bronchoscopy with bronchial alveolar lavage of the right upper lobe , right middle lobe and right lower lobe. The patient also developed a postoperative acute hypoxic respiratory failure and issues are due to his DTs , requiring prolonged mechanical ventilation. The patient was subsequently extubated on 11/24/2016 at 10:15 AM. He did develop a postoperative acute tracheobronchitis with a positive culture for Moraxella Catarra which was treated accordingly. After the patient was extubated T developed some abdominal distention accompanied by some abdominal pain and was subsequently diagnosed with a colonic ileus which was treated accordingly. The patient eventually passed his swallow study and progressed with an oral diet which he tolerated well as his ileus had resolved. The patient was subsequently transferred to [address] [place] [address] where he progressed working with physical therapy.] COMPLICATIONS: [His postoperative period was complicated by a right middle lobe and right lower lobe mucous plug requiring postoperative bronchoscopy and bronchial alveolar lavage. An acute tracheobronchitis with positive culture for Moraxella Catarra which was treated with Levaquin. Postoperative prolonged mechanical ventilator dependence due to acute hypoxic respiratory failure and on withdrawal DTs, which was treated accordingly. Postoperative paroxysmal atrial fibrillation which was treated accordingly. ] CONSULTATIONS: 1.[ Dr. Gilman for cardiology management] 2.[Dr. Jung for pulmonary and ventilator management ] 3.[Dr. Yoder for medical management] 4.[Dr. Rosas for general surgical management] DISCHARGE INSTRUCTIONS: 1. Daily PT and INRs with results called to Dr. Gilman's office at [phone] for Coumadin dosing. 2. The patient should sleep in their own bed, no medical bed needed upon discharge home . 3. Stairs are not an issue. If the bedroom is upstairs, it is advised that the patient go up at night and down in the morning for the first week. Go slowly, using handrail and take 1 step at a time. 4. CEZAR hose are to be worn for 30 days or until physician discontinues. 5. Heart hugger is to be worn 100% of the time until physician discontinues.( excepet when showering) 6. No lifting, pushing, or pulling more than 10 pounds for 12 weeks. The physician will advise of any restriction changes. 7. The patient is expected to continue the prescribed walking program. 8. Continue pain control per as needed orders. 9. Continue with incentive spirometry and splinting/heart hugger until otherwise directed by the physician. 10. Must shower daily using liquid antibacterial soap and a separate white washcloth for each individual incision. 11. Please remove sternal chest dressing daily with routine sternal incision care thereafter. 12. Physical therapy and occupational therapy to evaluate and treat. 13. Respiratory therapy to evaluate and treat NURSING SERVICES TO PROVIDE: RN SKILLED HOME CARE SERVICES FOR POST-OP SURGICAL PATIENTS WITH THE FOLLOWING: Coronary Artery Bypass Surgery (CABG), Mitral Valve Replacement/ Repair ( MVR), Aortic Valve Replacement/Repair (AVR) RN TO CONTINUE EDUCATION FROM ``ROAD TO A HEALTH HEART PATIENT EDUCATION MANUAL (GIVEN TO PATIENT IN THE HOSPITAL) MEDICATION RECONCILIATION WITH EDUCATION NEEDED ON FIRST HOME VISIT EMPHASIZE IMPORTANCE OF WEARING BREAST SUPPORT/HEART HUGGER ENCOURAGE USE OF INCENTIVE SPIROMETER 10 X EVERY HOUR WHILE AWAKE ENCOURAGE UTILIZATION OF LOWER EXTREMITY COMPRESSION STOCKINGS/CEZAR HOSE and ELEVATE LEGS ABOVE LEVEL OF HEART WHILE AT REST. ENCOURAGE AMBULATION 3-5x/day INCREASING TOLERATES, WHILE AVOID EXTREMES IN TEMPERATURE LABORATORY: CBC, CMP TO BE DRAWN EVERY 3 DAYS, WITH DAILY PT AND INRS. FAX RESULTS TO [phone]. Please call PT and INRs results to Dr. Gilman's office as indicated for Coumadin dosing HEALTH PARAMETERS: WEIGHT: NOTIFY MD OF WEIGHT GAIN OF 2 LBS IN 24 HOURS OR 5 LBS IN ONE WEEK HR: NOTIFY MD OF HR <55 BPM OR HR>100 BPM BP: NOTIFY MD IF BP <90/55 OR BP>140/100 O2 SAT: NOTIFY MD IF PO2<93% ON ROOM AIR Plan - Discharge Summary Discharge Medication List Amiodarone [Cordarone] 200 mg PO DAILY tab 12/09/16 [Rx] Aspirin 325 mg PO DAILY tab 12/09/16 [Rx] Atorvastatin [Lipitor] 40 mg PO DAILY tab 12/09/16 [Rx] Bisacodyl [Dulcolax] 10 mg RECTAL DAILY PRN #0 supp 12/09/16 [Rx] Colchicine [Colcrys] 0.6 mg PO BID PRN #0 tab 12/09/16 [Rx] Furosemide [Lasix] 40 mg PO DAILY tab 12/09/16 [Rx] INSULIN LISPRO (humaLOG) [humaLOG (formulary)] 0 unit SQ ACHS vial 12/09/16 [Rx ] Insulin Detemir [Levemir] 10 unit SQ HS vial 12/09/16 [Rx] Ipratropium-Albuterol Nebulize [Duoneb 0.5 mg-3 mg/3 ml Soln] 3 ml INHALATION RT -QID ampul.neb 12/09/16 [Rx] Ipratropium-Albuterol Nebulize [Duoneb 0.5 mg-3 mg/3 ml Soln] 3 ml INHALATION RT -QID PRN #0 ampul.neb 12/09/16 [Rx] Lisinopril [Zestril] 10 mg PO BID tab 12/09/16 [Rx] Magnesium Hydroxide [Milk of Magnesia Concentrate] 2,400 mg PO BID PRN #0 ml 07/16 [Rx] Metoprolol Tartrate [Lopressor] 50 mg PO BID tab 12/09/16 [Rx] Multivitamins, Thera Liquid [Theragran Liquid (formulary)] 15 ml PO DAILY@1200 ml 12/09/16 [Rx] Pantoprazole [Protonix] 40 mg PO DAILY tablet. 12/09/16 [Rx] Sennosides-Docusate Sodium [Senokot-S] 2 each PO HS tab 12/09/16 [Rx] Sertraline [Zoloft] 50 mg PO DAILY tab 12/09/16 [Rx] Thiamine [Vitamin B-1] 100 mg PO BID tab 12/09/16 [Rx] Warfarin Sodium [Coumadin] 2 mg PO DIRECTED #30 tablet 12/09/16 [Rx] Follow up Appointment(s)/Referral(s): Amira Jung MD [STAFF PHYSICIAN] - 01/02/17 1:45 pm Nasra Whaley NPC [Nurse Practitioner] - 12/16/16 11:45 am (Follow-up in the office at [address] [place] [address], [address], [facility], [address]. Office number is a [phone]) Mable Gilman MD [STAFF PHYSICIAN] - 2 Weeks (Dr. Gilman's office will call with a follow-up appointment.) Ollie Ortega MD [STAFF PHYSICIAN] - 12/30/16 11:45 am Juancarlos Townsend DO [Primary Care Provider] - 12/19/16 2:40 pm Discharge Disposition: TRANSFER TO SNF/ECF
[2016-12-09 16:34] LABS: Glucose,Whole Blood 112 mg/dL (75-99)
[2016-12-09] MEDS ORDERED: WARFARIN 3 MG TAB PO ONE (18:00)
--- NOTE | 2016-12-10 13:53 | PN ---
DATE OF SERVICE: 12/09/2016 INTERVAL HISTORY: Mr. Gonzalez is a 61-year-old male who underwent coronary artery bypass graft and had a prolonged hospital stay in the intensive care unit due to hypovolemia and unable to wean. Patient also had prolonged DT's as well due to history of alcohol abuse. Subsequently patient was transferred to the selective care unit and patient's respiratory status is much improved now. Patient also developed atrial fibrillation and was started on anticoagulation. Patient was also having ileus which is resolved as well. Currently, patient hemodynamically stable and denied any chest pain or short of breath and leg swelling and pain is much improved now. The patient is being transferred to rehab for cardiac rehab. Patient is being transferred to a facility today. Complete review of systems negative except as above. Current medications are reviewed. PHYSICAL EXAMINATION: A 61-year-old male lying in bed comfortably, awake, alert, oriented x3, appears to be in no apparent distress. VITALS: Blood pressure is 102/55, pulse is 57, respirations 18, temperature afebrile, pulse ox 97% on room air. HEENT: Atraumatic, normocephalic. Neck is supple. No JVD. CVS EXAM: S1, S2 heard. No murmurs, no gallop. LUNGS: Bilateral air entry is present. No wheezing, no crackles. Abdomen is soft, nontender. Bowel sounds are heard. TRAPPER ANIMAL: Awake, alert and oriented x3. No focal deficits. EXTREMITIES: 2+ edema. Pulses palpable bilaterally. Stockings in place. PSYCHIATRIC: Cooperative. LABORATORY DATA: Reviewed. IMPRESSION: 1. Coronary artery disease status post coronary artery bypass graft, postoperative day 30. 2. Acute hypoxic respiratory failure post surgery with prolonged respiratory failure, extubated, weaned successfully. 3. Hypertension. 4. Hyperlipidemia. 5. Atrial fibrillation, anticoagulated with Coumadin. 6. History of severe alcohol abuse, prolonged episodes of delirium tremens in the ICU. 7. Ileus, resolved. 8. Dysphagia, resolved. 9. Diabetes mellitus, uncontrolled, with elevated blood sugar s. 10. Catarrhalis tracheobronchitis, improved now. 11. Deep venous thrombosis prophylaxis currently on Coumadin. DISCUSSION AND PLAN: Patient will be continued on the current management. Patient has been transferred to rehab today. Continue with the incentive spirometry and encourage ambulation and follow. Otherwise, patient is being transferred to rehab today.
--- NOTE | 2017-01-05 18:03 | CDI ---
In responding to this query, please exercise your independent professional judgment. The [facility] Coding Staff and Clinical Documentation Specialists appreciate your assistance in clarifying documentation, maintaining compliance with coding guidelines, accurately documenting patients condition and capturing severity of illness. The fact that a question is asked does not imply that any particular answer is desired or expected. Communication forms are a method of clarifying documentation and are not made part of the Legal Health Record. Thank you in advance for your clarification. Last Revision, May 2015 Clinical Validation Date: 01/05/2017 5:48:00 PM From: Allison Patel, Desktop Publishing Associate Admit Date: 11/10/2016 5:40:00 AM Patient Name: Emmanuel Gonzalez Visit Number: [id number] Discharge Date: Dr. Amira Jung Patient presented for CABG. His postoperative course was complicated and there is documentation that needs clarification. Possible early dehiscense is documented in several progress notes starting from 11/27 to 12/04. Quality reviewed the chart and noted documentation that wound was clean and dry. In your professional opinion, can you please clarify ____? Wound dehiscence ruled in Wound dehiscence ruled out Other Unable to determine Please document as an addendum to the discharge summary FYI: Press F11 to launch patient chart. Place X here if this finding has no clinical significance, is not applicable or if you are not able to provide any additional documentation. INDERD
--- NOTE | 2017-01-06 15:26 | CDI ---
Date: 01/05/2017 5:48:00 PM From: Mami Nassar Phone: Admit Date: 11/10/2016 5:40:00 AM Patient Name: Emmanuel Gonzalez Visit Number: [id number] Discharge Date: Dr. Ollie Ortega Patient presented for CABG. His postoperative course was complicated and there is documentation that needs clarification. Possible early dehiscense is documented in several progress notes starting from 11/27 to 12/04. Quality reviewed the chart and noted documentation that wound was clean and dry. In your professional opinion, can you please clarify ____? Wound dehiscence ruled in Wound dehiscence ruled out Other Unable to determine Please document as an addendum to the discharge summary. FYI: Press F11 to launch patient chart. __X___ Place X here if this finding has no clinical significance, is not applicable or if you are not able to provide any additional documentation. TAISHA
== END 2016-12-09 17:21 | DRG 235 ==
LOC: 2ORMAIN 05:40 → 6ICU 13:55 → 6SEL 12-05 11:10
PROVIDERS: ADMIT Surgery; ATTEND Surgery
PROC: B246ZZ4 Ultrasonography of Right and Left Heart, Transesophageal (ICD-10-PCS; 2016-11-10)
PROC: 5A1955Z Respiratory Ventilation, Greater than 96 Consecutive Hours (ICD-10-PCS; 2016-11-10)
PROC: 4A033BC Measurement of Arterial Pressure, Coronary, Percutaneous Approach (ICD-10-PCS; 2016-11-10)
PROC: 02100Z8 Bypass Coronary Artery, One Artery from Right Internal Mammary, Open Approach (ICD-10-PCS; 2016-11-10)
PROC: 02100Z9 Bypass Coronary Artery, One Artery from Left Internal Mammary, Open Approach (ICD-10-PCS; 2016-11-10)
PROC: 0BCC8ZZ Extirpation of Matter from Right Upper Lung Lobe, Via Natural or Artificial Opening Endoscopic (ICD-10-PCS; 2016-11-10 09:45)
PROC: 0B9C8ZX Drainage of Right Upper Lung Lobe, Via Natural or Artificial Opening Endoscopic, Diagnostic (ICD-10-PCS; 2016-11-10 09:45)
PROC: 0B958ZX Drainage of Right Middle Lobe Bronchus, Via Natural or Artificial Opening Endoscopic, Diagnostic (ICD-10-PCS; 2016-11-10 09:45)
PROC: 03HY32Z Insertion of Monitoring Device into Upper Artery, Percutaneous Approach (ICD-10-PCS; 2016-11-16)
PROC: 4A133B1 Monitoring of Arterial Pressure, Peripheral, Percutaneous Approach (ICD-10-PCS; 2016-11-16)
PROC: 4A133J1 Monitoring of Arterial Pulse, Peripheral, Percutaneous Approach (ICD-10-PCS; 2016-11-16)
PROC: B548ZZA Ultrasonography of Superior Vena Cava, Guidance (ICD-10-PCS; principal; 2016-11-17 10:25)
PROC: 02HV33Z Insertion of Infusion Device into Superior Vena Cava, Percutaneous Approach (ICD-10-PCS; principal; 2016-11-17 10:25)
DX: T82.855A Stenosis of coronary artery stent, initial encounter (principal); J95.821 Acute postprocedural respiratory failure; G62.81 Critical illness polyneuropathy; G72.81 Critical illness myopathy; Z99.11 Dependence on respirator [ventilator] status; J80 Acute respiratory distress syndrome; I50.9 Heart failure, unspecified; I48.92 Unspecified atrial flutter; E11.65 Type 2 diabetes mellitus with hyperglycemia; I11.0 Hypertensive heart disease with heart failure; J44.0 Chronic obstructive pulmonary disease with (acute) lower respiratory infection; K56.7 Ileus, unspecified; E87.4 Mixed disorder of acid-base balance; F10.231 Alcohol dependence with withdrawal delirium; J44.1 Chronic obstructive pulmonary disease with (acute) exacerbation; J95.89 Other postprocedural complications and disorders of respiratory system, not elsewhere classified; K91.89 Other postprocedural complications and disorders of digestive system; T17.890A Other foreign object in other parts of respiratory tract causing asphyxiation, initial encounter; J98.11 Atelectasis; I25.10 Atherosclerotic heart disease of native coronary artery without angina pectoris; E86.1 Hypovolemia; I48.0 Paroxysmal atrial fibrillation; B96.1 Klebsiella pneumoniae [K. pneumoniae] as the cause of diseases classified elsewhere; F17.220 Nicotine dependence, chewing tobacco, uncomplicated; D64.9 Anemia, unspecified; E78.5 Hyperlipidemia, unspecified; F17.210 Nicotine dependence, cigarettes, uncomplicated; I25.2 Old myocardial infarction; J20.9 Acute bronchitis, unspecified; M10.00 Idiopathic gout, unspecified site; R13.10 Dysphagia, unspecified; Y83.1 Surgical operation with implant of artificial internal device as the cause of abnormal reaction of the patient, or of later complication, without mention of misadventure at the time of the procedure; Z79.01 Long term (current) use of anticoagulants; Z79.82 Long term (current) use of aspirin; Z79.899 Other long term (current) drug therapy; Z82.49 Family history of ischemic heart disease and other diseases of the circulatory system
CPT/HCPCS: 31624; 31645; 36569; 36600; 36620; 70450; 71010; 71260; 74000; 74020; 74177; 74230; 76604; 76937; 80048; 80053; 80162; 82272; 82330; 82805; 83036; 83735; 83880; 84100; 84132; 84439; 84443; 84478; 85025; 85027; 85520; 85610; 85730; 86850; 86891; 86900; 86901; 86920; 87040; 87070; 87077; 87086; 87102; 87116; 87186; 87205; 87206; 87252; 87324; 87496; 87498; 87502; 87529; 87798; 94002; 94003; 94150; 94640; 94760

== ENCOUNTER → 2017-05-04 | Day surgery (SDC) | payer OTHER ==
[2017-05-03 09:52] VITALS: BMI 28.0
[~2017-05-04] MED LIST changes: -ALBUMIN HUMAN 25% 50 ML IV ONE; -ALBUMIN HUMAN 5% 500 ML IVPB ONE; +AMIODARONE 200 MG TAB PO SCH; -ASPIRIN 325 MG TAB PO ONE; +ASPIRIN 81 MG PO SCH; -ATORVASTATIN 10 MG TAB PO ONE; +ATORVASTATIN 40 MG TAB PO SCH; +BENZOCAINE SPRAY 1 SPRAY CAN MUCOUS MEM ONE; -CALCIUM CHLORIDE 100 MG/ML 10 ML SYRINGE IV ONE; -CHLORHEXIDINE GLUCONATE 15 ML CUP MUCOUS MEM ONE; -CLEVIDIPINE BUTYRATE 25 MG in EMPTY BAG 1 BAG IV ONE; +COLCHICINE 0.6 MG TAB PO PRN; -DEXTROSE 5% IN WATER 1,000 ML with POTASSIUM CHLORIDE 110 MEQ, MAGNESIUM SULFATE 16 MEQ... IV ONE; -DEXTROSE 5% IN WATER 1,000 ML with POTASSIUM CHLORIDE 25 MEQ, SODIUM CHLORIDE 4MEQ/ML V... IV ONE; +FUROSEMIDE 40 MG TAB PO SCH; -HEPARIN SODIUM 1,000 UNIT/ML VIAL IV ONE; -HEPARIN SODIUM,PORCINE 5,000 UNIT in SODIUM CHLORIDE 0.9% 500 ML IV ONE; -INSULIN REGULAR 100 UNIT in SODIUM CHLORIDE 0.9% 100 ML IV ONE; -LACTATED RINGERS 1,000 ML IV ONE; -LACTATED RINGERS 1,000 ML IV SCH; +LIDOCAINE 1% INJ 10MG/ML (20 ML MDV) ONE; +LISINOPRIL 10 MG TAB PO SCH; -MAGNESIUM SULFATE MG 500 MG/ML VIAL IV ONE; -METOPROLOL TARTRATE 12.5 MG TAB PO ONE; +METOPROLOL TARTRATE 50 MG TAB PO SCH; +MIDAZOLAM 2 MG/2 ML VIAL ONE; -NITROGLYCERIN-D5W PMX 25 MG/250 ML BTL IV ONE; -NITROGLYCERIN-D5W PMX 50 MG in DEXTROSE/WATER 1 250ML.BAG IV ONE; -NOREPINEPHRIN 4 MG-0.9% NS PMX 4 MG/250 ML ML IV ONE; +PANTOPRAZOLE 40 MG TABLET PO SCH; -PAPAVERINE 360 MG in SODIUM CHLORIDE 0.9% 90 ML IV ONE; -PHENYLEPHRINE 40 MG in SODIUM CHLORIDE 0.9% 250 ML IV ONE; -PHENYLEPHRINE-0.9% NACL SYG 1 MG/10 ML SYRINGE IV ONE; +PHENYLEPHRINE-0.9% NACL SYG 1 MG/10 ML SYRINGE ONE; +PROPOFOL 10 MG/ML 20 ML VIAL IV ONE; -PROPOFOL 50 ML IV ONE; -PROTAMINE SULFATE 10 MG/ML 25 ML VIAL IV ONE; -PROTAMINE SULFATE 250 MG in EMPTY BAG 1 BAG IV ONE; +SERTRALINE 50 MG TAB PO SCH; -SODIUM BICARB 8.4% 50 ML SYR (1 MEQ/ML) IV ONE; -SODIUM CHLORIDE 0.9% 1,000 ML IV ONE; +SODIUM CHLORIDE 0.9% 1,000 ML IV SCH; +SODIUM CHLORIDE 0.9% 500 ML IV ONE; -ceFAZolin 1,000 MG in SODIUM CHLORIDE 0.9% IRRIGATIO 1,000 ML IRRIGATION ONE; -ceFAZolin 2,000 MG in SODIUM CHLORIDE 0.9% 30 ML IVPB ONE; +ePHEDrine SULFATE/0.9% NACL/PF 50 MG/5 ML SYRINGE IV ONE
[2017-05-04 07:54] VITALS: TEMP 98.9
[2017-05-04 08:52] LABS: Prothrombin Time 61.8 sec (9.0-12.0)
[2017-05-04 08:59] LABS: Anion Gap 11 mmol/L; Blood Urea Nitrogen 19 mg/dL (9-20); Calcium 9.5 mg/dL (8.4-10.2); Carbon Dioxide 23 mmol/L (22-30); Chloride 105 mmol/L (98-107); Glucose 108 mg/dL (74-99); Non-African American GFR(MDRD) >60 (>60 ml/min/1.73 sqM); Potassium 4.6 mmol/L (3.5-5.1); Sodium 139 mmol/L (137-145)
[2017-05-04 09:03] LABS: INR 6.1 (<1.2)
--- NOTE | 2017-05-04 10:02 | ECHOT ---
TRANSESOPHAGEAL ECHOCARDIOGRAM INDICATION: Evaluation of left atrial appendage. PROCEDURE: After explaining the procedure to the patient, it's risks and complications, his blood pressure, heart rate, O2 saturation was monitored. The throat was sprayed with Cetacaine. He received sedation per Anesthesia Department. The probe was introduced into the esophagus without difficulty. Images were obtained. Following that, the probe was removed. FINDINGS: Left atrial size is dilated, left atrial appendage is normal, left ventricular size is normal. There is evidence of global hypokinesis with estimated ejection fraction of 40%. The aortic valve with mild fibrocalcific change attendant the aortic cusp. The mitral valve appears to be normal. Tricuspid valve is normal. Descending thoracic aorta appears to be normal. Contrast bubble study revealed no shunting across the interatrial septum. No pericardial effusion was noted. Doppler pulse workup obtained revealed mild to moderate mitral with mild tricuspid regurgitation. There was no shunting by color Doppler study. CONCLUSION: 1. The left atrium was normal with normal appearing left atrial appendage. 2. Normal left ventricular size with moderate global hypokinesis. 3. Aortic sclerosis with known stenosis. 4. Mild to moderate mitral regurgitation with mild tricuspid regurgitation. 5. No shunting across the interatrial septum. 6. No pericardial effusion. MMODL / IJN: [id number] /
--- NOTE | 2017-05-04 10:05 | CE ---
CARDIAC ELECTROPHYSIOLOGY REPORT INDICATION: Atrial flutter. PROCEDURE: After explaining the procedure to the patient, it's risks and complication and after obtaining sedation per Anesthesia Department and performing transesophageal echocardiogram, a synchronized biphasic cardioversion using 200 joules was performed with rastafari of normal sinus rhythm. There was no immediate complication. MARY BETH / ARIANA: [id number] /
[2017-05-04 10:18] VITALS: RESP 16
[2017-05-04 11:12] VITALS: BP 100/58; PULSE 52
== END | disposition home or self-care (01) ==
LOC: CATHCVL 07:26
PROVIDERS: ATTEND Internal Medicine Interventional Cardiology
DX: I08.3 Combined rheumatic disorders of mitral, aortic and tricuspid valves (principal); I48.3 Typical atrial flutter; Z79.01 Long term (current) use of anticoagulants; I10 Essential (primary) hypertension; E78.2 Mixed hyperlipidemia; F17.221 Nicotine dependence, chewing tobacco, in remission; Z95.1 Presence of aortocoronary bypass graft; Z82.49 Family history of ischemic heart disease and other diseases of the circulatory system; Z95.5 Presence of coronary angioplasty implant and graft; Z79.82 Long term (current) use of aspirin; Z79.899 Other long term (current) drug therapy; Z88.0 Allergy status to penicillin
CPT/HCPCS: 93312; 93320; 93005; 93325; 92960; 80048; 85610; J2250; J2001; J2370; J2704

== ENCOUNTER 2017-10-28 00:24 | Emergency (ER) | payer OTHER ==
[2017-10-28 00:37] VITALS: RESP 18
--- NOTE | 2017-10-28 00:41 | ED ---
Fall HPI - General Chief Complaint: Fall Stated Complaint: Fall/ETOH Time Seen by Provider: 10/28/17 00:27 Source: patient, EMS, RN notes reviewed Mode of arrival: EMS - History of Present Illness Initial Comments: This is a 62-year-old male who presents to the emergency department via EMS with chief complaint of fall injury. Patient states that this evening he had multiple alcoholic beverages. He states that he fell in his bathroom at home and struck his forehead on what he believes to be the shower. His son-in-law helped him walk back to bed and patient refused to go to the hospital. Son-in- law then noticed a goose egg on patient's left side of his forehead and contacted EMS. Patient denies any other injury or trauma. Denies neck or back pain. He does admit to some forehead pain. Patient is currently on warfarin after undergoing bypass surgery. Denies fever, chills, chest pain, shortness of breath, abdominal pain, nausea or vomiting, constipation or diarrhea, dysuria or hematuria, numbness or tingling, or vision changes. - Related Data Home Medications Medication Instructions Recorded Confirmed Warfarin [Coumadin] 1.25 mg PO [id number] 05/03/17 07/02/17 Aspirin 81 mg PO DAILY 05/04/17 07/02/17 Lisinopril [Zestril] 10 mg PO DAILY 07/02/17 07/02/17 Multivitamins, Thera [Multivitamin 1 tab PO DAILY 07/02/17 07/02/17 (formulary)] Potassium Chloride [Klor-Con 10] 20 meq PO BID 07/02/17 07/02/17 Previous Rx's Medication Instructions Recorded Amiodarone [Cordarone] 200 mg PO DAILY tab 12/09/16 Atorvastatin [Lipitor] 40 mg PO DAILY tab 12/09/16 Colchicine [Colcrys] 0.6 mg PO BID PRN #0 tab 12/09/16 Furosemide [Lasix] 40 mg PO DAILY tab 12/09/16 Metoprolol Tartrate [Lopressor] 50 mg PO BID tab 12/09/16 Pantoprazole [Protonix] 40 mg PO DAILY tablet. 12/09/16 Sertraline [Zoloft] 50 mg PO DAILY tab 12/09/16 Allergies Allergy/AdvReac Type Severity Reaction Status Date / Time Penicillins Allergy Rash/Hives Verified 10/28/17 00:37 Review of Systems ROS Statement: Those systems with pertinent positive or pertinent negative responses have been documented in the HPI. ROS Other: All systems not noted in ROS Statement are negative. Past Medical History Past Medical History: Atrial Fibrillation, Hyperlipidemia, Hypertension, Myocardial Infarction (DC) Additional Past Medical History / Comment(s): gout, "borderline diabetic"-diet control Last Myocardial Infarction Date:: 1999 History of Any Multi-Drug Resistant Organisms: None Reported Past Surgical History: Coronary Bypass/CABG, Heart Catheterization With Stent Additional Past Surgical History / Comment(s): stent x1 Past Anesthesia/Blood Transfusion Reactions: No Reported Reaction Date of Last Stent Placement:: 1999 Past Psychological History: No Psychological Hx Reported Smoking Status: Former smoker Past Alcohol Use History: Abuse, Daily Past Drug Use History: None Reported - Past Family History Sister(s) Family Medical History: Cancer Additional Family Medical History / Comment(s): THYROID General Exam - General Exam Comments Initial Comments: General: Awake and alert, well-developed; in no apparent distress. HEENT: Approximately 4" x 2.5" hematoma left forehead. Pupils are equal, round and reactive to light. Extraocular movements intact. Oropharynx moist without erythema or exudate. Neck: Supple. Normal ROM. No tenderness. Cardiovascular: Regular rate and rhythm. No murmurs, rubs or gallops. Chest symmetrical. Respiratory: Lungs clear to auscultation bilaterally. No wheezes, rales or rhonchi. Normal respiratory effort with no use of accessory muscles. Musculoskeletal: Normal ROM, no tenderness bilateral upper and lower extremities. Skin: [place], warm and dry without rashes or lesions. Neurological: Alert and oriented x3. CN II-XII grossly intact. Speech is fluent and answers are appropriate. No focal neuro deficits. Psychiatric: Normal mood and affect. No overt signs of depression or anxiety noted. Limitations: no limitations Course Vital Signs 10/28/17 00:32 Temperature 97.3 F L Pulse Rate 53 L Respiratory 18 Rate Blood Pressure 154/73 O2 Sat by Pulse 98 Oximetry Medical Decision Making - Medical Decision Making This is a 62-year-old male who presented to the emergency department for evaluation of fall injury. Patient is currently on warfarin. He fell while in the bathroom this evening after having multiple alcoholic beverages and hit his forehead. He sustained a large left frontal scalp hematoma. Computed tomography scan of the brain was obtained and revealed no evidence for skull fractures or intracranial hemorrhages. Patient's family members were contacted and he does have a ride home. Gait is steady. Vital signs are stable and patient is in no acute distress. He will be discharged home with a safe ride in place. Recommended follow-up with primary care provider. He is to apply ice to the scalp multiple times daily. Patient is in agreement with plan and voices understanding. All questions were answered. - Radiology Data Radiology results: report reviewed CT brain without contrast findings: There is mild cerebral cortical atrophy. There is no mass effect or midline shift. There is no sign of intracranial hemorrhage. There is a large left frontal scalp hematoma. I see no skull fracture. Impression: Cerebral atrophy. No acute intracranial abnormality. Left frontal scalp hematoma. Brain is stable compared to old exam. Disposition Clinical Impression: Scalp hematoma Disposition: HOME SELF-CARE Condition: Good Instructions: Hematoma (ED), Head Injury (ED) Additional Instructions: Please apply ice multiple times daily to the scalp hematoma. Please return to the emergency department if you develop severe headache, episodes of vomiting or any other concerning symptoms. Please follow up with primary care provider within 1-2 days. Return to emergency department if symptoms should worsen or any concerns arise. Referrals: Juancarlos Townsend DO [Primary Care Provider] - 1-2 days Time of Disposition: 01:48
--- NOTE | 2017-10-28 01:29 | CT ---
EXAMINATION TYPE: CT brain wo con DATE OF EXAM: 10/28/2017 COMPARISON: 07/02/2017 HISTORY: Prior on synapse, ETOH, fall CT DLP: 1029.90 mGycm Automated exposure control for dose reduction was used. FINDINGS: There is mild cerebral cortical atrophy. There is no mass effect nor midline shift. There is no sign of intracranial hemorrhage. There is large left frontal scalp hematoma. I see no skull fracture. IMPRESSION: CEREBRAL ATROPHY. NO ACUTE INTRACRANIAL ABNORMALITY. LEFT FRONTAL SCALP HEMATOMA. BRAIN IS STABLE COM PARED TO OLD EXAM.
[2017-10-28 02:00] VITALS: BP 141/69; PULSE 52; TEMP 97.2
== END 2017-10-28 01:58 | disposition home or self-care (01) ==
LOC: EC 00:24
DX: S00.03XA Contusion of scalp, initial encounter (principal); I48.91 Unspecified atrial fibrillation; I25.2 Old myocardial infarction; I10 Essential (primary) hypertension; M10.9 Gout, unspecified; Z87.891 Personal history of nicotine dependence; Z88.0 Allergy status to penicillin; Z79.01 Long term (current) use of anticoagulants; Z79.82 Long term (current) use of aspirin; Z79.899 Other long term (current) drug therapy; Z95.1 Presence of aortocoronary bypass graft; W18.30XA Fall on same level, unspecified, initial encounter; Y92.002 Bathroom of unspecified non-institutional (private) residence as the place of occurrence of the external cause
CPT/HCPCS: 70450; 82075; 99284

== ENCOUNTER → 2017-11-01 | Outpatient (CLI) | payer OTHER ==
--- NOTE | 2017-11-01 14:42 | XR ---
EXAMINATION TYPE: XR hand complete LT DATE OF EXAM: 11/01/2017 COMPARISON: NONE HISTORY: Left hand pain, injury fall TECHNIQUE: Three-view left hand FINDINGS: No acute fractures are evident. Old fracture of the proximal fifth metacarpal is not exclud ed. Joint spaces are preserved. Some mild soft tissue swelling is over the dorsum of the hand. IMPRESSION: 1. No acute osseous abnormality.
== END | disposition home or self-care (01) ==
LOC: RADXRYALE 14:27
PROVIDERS: ATTEND Physician Assistant Medical
DX: M79.642 Pain in left hand (principal)

== ENCOUNTER → 2018-04-19 | Outpatient (CLI) | payer OTHER ==
--- NOTE | 2018-04-19 10:44 | US ---
EXAMINATION TYPE: US abdomen limited DATE OF EXAM: 04/19/2018 COMPARISON: CT 11/26/2016 CLINICAL HISTORY: [id number] ABN LIVER RESULTS,[id number] ALCOHOL DEPENDANT. EXAM MEASUREMENTS: Liver Length: 15.3 cm Gallbladder Wall: 0.4 cm CBD: 0.6 cm Right Kidney: 9.3 x 5.3 x 6.0 cm Pancreas: Obscured by bowel gas Liver: Diffusely heterogeneous echotexture. Gallbladder: Wall is minimally thickened. No stones visualized Evidence for sonographic Wood's sign: No CBD: wnl for age, distal portion is obscured by bowel gas Right Kidney: Hypoechoic area visualized upper pole measuring 1.4 x 1.5 x 1.6, cyst vs other Visualized pancreas heterogeneous, portions are obscured by overlying bowel gas on images saved. Subo ptimal study due to patient's large body habitus and overlying bowel gas. Visualized liver is heterog eneously hyperechoic likely reflecting diffuse fatty infiltration. No intrahepatic ductal dilatation is seen. Evaluation for focal masses is suboptimal due to the heterogeneity. The common bile duct jeremy sures upper limits of normal. Gallbladder is seen without shadowing mobile gallstones. Gallbladder wa ll is thickened. No surrounding fluid is present. IMPRESSION: Suboptimal study, diffuse fatty infiltration of liver is felt present.
== END | disposition home or self-care (01) ==
LOC: RADUSWWP 10:11
PROVIDERS: ATTEND Family Medicine
DX: K76.0 Fatty (change of) liver, not elsewhere classified (principal); F10.20 Alcohol dependence, uncomplicated
CPT/HCPCS: 76705

== ENCOUNTER → 2019-10-02 | Outpatient (CLI) | payer OTHER ==
[2019-10-02 16:45] LABS: African American GFR (CKD) >90 (>60 ml/min/1.73 sqM); Blood Urea Nitrogen 9 mg/dL (9-20); Non-African American GFR(CKD) >90 (>60 ml/min/1.73 sqM)
--- NOTE | 2019-10-03 08:17 | CT ---
EXAMINATION TYPE: CT angio chest DATE OF EXAM: 10/02/2019 COMPARISON: 11/26/2016 HISTORY: 64-year-old male follow-up for thoracic aortic aneurysm. TECHNIQUE: Contiguous axial scanning of the chest performed without and with IV Contrast, patient inj ected with 100ml mL of Isovue 370. Coronal/sagittal reconstructions performed. 3-D reconstructions ge nerated on a dedicated independent workstation. CT DLP: 1208.3 mGycm Automated exposure control for dose reduction was used. FINDINGS: Heart is borderline enlarged without pericardial effusion. Prominent epicardial fat pad. Median osorio otomy wires are present. Unchanged chronic diastases along the inferior half of the sternum. Aortic root is ectatic at 3.9 cm. Ascending aorta ectatic at 3.8 cm. Descending thoracic aorta normal caliber. No thoracic lymphadenopathy by CT size criteria. Evaluation of the lung shows mild bronchial wall thickening. Tiny calcified granuloma along the right middle lobe. No consolidation or pleural effusion. Small hiatal hernia and tiny anterior splenule within the upper abdomen. Bones: Old healed right-sided lateral rib fractures. Moderate anterior endplate spondylosis lower tho racic spine. IMPRESSION: 1. POST-CABG CHANGES. CHRONIC DIASTASES ALONG THE INFERIOR HALF OF THE STERNUM. 2. STABLE ECTASIA OF THE AORTIC ROOT AND ASCENDING THORACIC AORTA MEASURING UP TO 3.9 CM. 3. MILD BRONCHIAL WALL THICKENING CAN BE SEEN WITH BRONCHITIS OR ASTHMA. 4. SMALL HIATAL HERNIA.
== END | disposition home or self-care (01) ==
LOC: RADCTMAIN 15:56
PROVIDERS: ATTEND Internal Medicine Interventional Cardiology
DX: I71.2 Thoracic aortic aneurysm, without rupture (principal); K44.9 Diaphragmatic hernia without obstruction or gangrene; Z95.1 Presence of aortocoronary bypass graft; S22.23XK Sternal manubrial dissociation, subsequent encounter for fracture with nonunion; Z88.0 Allergy status to penicillin
CPT/HCPCS: 82565; 84520; 71275; 36415; Q9967

== ENCOUNTER 2019-12-27 17:11 | Observation (INO) | payer OTHER ==
[2019-12-27 18:05] LABS: Basophils % (A) 1 %; Eosinophils # (A) 0.1 k/uL (0-0.7); Eosinophils % (A) 1 %; HCT 40.2 % (39.0-53.0); Lymphocytes # (A) 1.8 k/uL (1.0-4.8); Lymphocytes % (A) 26 %; MCH 32.9 pg (25.0-35.0); MCHC 32.4 g/dL (31.0-37.0); MCV 101.5 fL (80.0-100.0); Macrocytosis Slight; Monocytes # (A) 0.6 k/uL (0-1.0); Monocytes % (A) 8 %; Neutrophils # (A) 4.2 k/uL (1.3-7.7); Neutrophils % (A) 61 %; Platelet Count 245 k/uL (150-450); RBC 3.96 m/uL (4.30-5.90); RDW 13.4 % (11.5-15.5); WBC 6.9 k/uL (3.8-10.6)
[2019-12-27 18:14] LABS: INR 2.5 (<1.2); Partial Thromboplastin Time 31.4 sec (22.0-30.0); Prothrombin Time 24.2 sec (9.0-12.0)
[2019-12-27 18:15] LABS: ALT 40 U/L (4-49); AST 65 U/L (17-59); African American GFR (CKD) >90 (>60 ml/min/1.73 sqM); Albumin 4.2 g/dL (3.5-5.0); Alkaline Phosphatase 103 U/L (38-126); Anion Gap 8 mmol/L; Blood Urea Nitrogen 9 mg/dL (9-20); Calcium 9.6 mg/dL (8.4-10.2); Carbon Dioxide 27 mmol/L (22-30); Chloride 99 mmol/L (98-107); Glucose 141 mg/dL (74-99); Magnesium 1.9 mg/dL (1.6-2.3); Non-African American GFR(CKD) >90 (>60 ml/min/1.73 sqM); Potassium 4.6 mmol/L (3.5-5.1); Sodium 134 mmol/L (137-145); Total Bilirubin 0.9 mg/dL (0.2-1.3); Total Protein 7.5 g/dL (6.3-8.2)
--- NOTE | 2019-12-27 18:22 | XR ---
EXAMINATION TYPE: XR chest 2V DATE OF EXAM: 12/27/2019 COMPARISON: 10/28/2018 HISTORY: Chest pain TECHNIQUE: Frontal and lateral views of the chest are obtained. FINDINGS: Cardiomediastinal silhouette is enlarged with post CABG change. No focal consolidation, pl eural effusion or pneumothorax. Mild degenerative change of the spine. IMPRESSION: Persistently enlarged cardiomediastinal silhouette with post CABG change. No acute pulmo nary process.
--- NOTE | 2019-12-27 18:31 | ED ---
General Adult HPI - General Chief complaint: Chest Pain Stated complaint: Chest Pain Time Seen by Provider: 12/27/19 17:29 Source: patient Mode of arrival: ambulatory Limitations: no limitations - History of Present Illness Initial comments: Dictation was produced using [employer] dictation software. please excuse any grammatical, word or spelling errors. This patient was cared for during a federal and state declared state of emergency secondary to Covid 19 Chief Complaint: 64-year-old male past medical history of coronary artery disea se presents with chest pain. History of Present Illness: Patient 64-year-old male is told by his primary care physician to come to the emergency department for evaluation of chest pain. Last night patient had episode of chest pain that was associated with numbness down the right upper extremity. Patient has history of coronary artery disease and bypass. Patient currently takes Coumadin. States that his pain lasted for about 5 minutes and then resolved on its own. Patient denies any complaints at this time. States he does feel generally weak. No nausea or vomiting. No associated diaphoresis. The ROS documented in this emergency department record has been reviewed and confirmed by me. Those systems with pertinent positive or negative responses have been documented in the HPI. All other systems are other negative and/or noncontributory. PHYSICAL EXAM: General Impression: Alert and oriented x3, not in acute distress HEENT: Normocephalic atraumatic, extra-ocular movements intact, pupils equal and reactive to light bilaterally, mucous membranes moist. Cardiovascular: Heart regular rate and rhythm Chest: Able to complete full sentences, no retractions, no tachypnea Abdomen: abdomen soft, non-tender, non-distended, no organomegaly Musculoskeletal: Pulses present and equal in all extremities, no peripheral edema Motor: no focal deficits noted Neurological: CN II-XII grossly intact, no focal motor or sensory deficits noted Skin: Intact with no visualized rashes Psych: Normal affect and mood ED course: 64-year-old male presents with atypical chest pain, with typical fe atures. Vital Signs upon arrival are within acceptable limits. Laboratory evaluation obtained. CBC, coag panel, metabolic panel is within acceptable limits. Cardiac enzyme negative. Chest x-ray is nonacute. Results were discussed with patient. It's my recommendation for patient be admitted to observation overnight for serial troponins and cardiology consultation. Patient is agreeable. Patient given an aspirin. Patient be admitted to [place] hospitalist group. EKG interpretation: Ventricular rate 50, sinus bradycardia,. Interval to 18, QRS 90, QTc 448. No MS prolongation, no QTC prolongation, no ST or T-wave changes noted. EKG compared to 10/28/2018 showing no changes. Overall, this EKG is unremarkable - Related Data Home Medications Medication Instructions Recorded Confirmed Warfarin [Coumadin] 1.25 mg PO SUTUWETHFRSA 05/03/17 07/02/17 Aspirin 81 mg PO DAILY 05/04/17 07/02/17 Lisinopril [Zestril] 10 mg PO DAILY 07/02/17 07/02/17 Multivitamins, Thera [Multivitamin 1 tab PO DAILY 07/02/17 07/02/17 (formulary)] Potassium Chloride [Klor-Con 10] 20 meq PO BID 07/02/17 07/02/17 Previous Rx's Medication Instructions Recorded Amiodarone [Cordarone] 200 mg PO DAILY tab 12/09/16 Atorvastatin [Lipitor] 40 mg PO DAILY tab 12/09/16 Colchicine [Colcrys] 0.6 mg PO BID PRN #0 tab 12/09/16 Furosemide [Lasix] 40 mg PO DAILY tab 12/09/16 Metoprolol Tartrate [Lopressor] 50 mg PO BID tab 12/09/16 Pantoprazole [Protonix] 40 mg PO DAILY tablet. 12/09/16 Sertraline [Zoloft] 50 mg PO DAILY tab 12/09/16 Allergies Allergy/AdvReac Type Severity Reaction Status Date / Time Penicillins Allergy Rash/Hives Verified 12/27/19 17:18 Review of Systems ROS Statement: Those systems with pertinent positive or pertinent negative responses have been documented in the HPI. ROS Other: All systems not noted in ROS Statement are negative. Past Medical History Past Medical History: Atrial Fibrillation, Hyperlipidemia, Hypertension, Myocardial Infarction ([place]) Additional Past Medical History / Comment(s): gout, "borderline diabetic"-diet control Last Myocardial Infarction Date:: 1999 History of Any Multi-Drug Resistant Organisms: None Reported Past Surgical History: Coronary Bypass/CABG, Heart Catheterization With Stent Additional Past Surgical History / Comment(s): stent x1 Past Anesthesia/Blood Transfusion Reactions: No Reported Reaction Date of Last Stent Placement:: 1999 Past Psychological History: No Psychological Hx Reported Smoking Status: Former smoker Past Alcohol Use History: Abuse, Daily Past Drug Use History: None Reported - Past Family History Sister(s) Family Medical History: Cancer Additional Family Medical History / Comment(s): THYROID General Exam Limitations: no limitations Course Vital Signs 12/27/19 12/27/19 17:15 18:32 Temperature 98.3 F Pulse Rate 53 L 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 ] Respiratory 18 Rate Blood Pressure 196/85 O2 Sat by Pulse 98 Oximetry Medical Decision Making - Lab Data Result diagrams: 12/27/19 17:45 12/27/19 17:45 Lab Results 12/27/19 12/27/19 12/27/19 Range/Units 17:45 17:45 17:45 WBC 6.9 (3.8-10.6) k/uL RBC 3.96 L (4.30-5.90) m/uL Hgb 13.0 (13.0-17.5) gm/dL Hct 40.2 (39.0-53.0) % MCV 101.5 H (80.0-100.0) fL MCH 32.9 (25.0-35.0) pg MCHC 32.4 (31.0-37.0) g/dL RDW 13.4 (11.5-15.5) % Plt Count 245 (150-450) k/uL Neutrophils % 61 % Lymphocytes % 26 % Monocytes % 8 % Eosinophils % 1 % Basophils % 1 % Neutrophils # 4.2 (1.3-7.7) k/uL Lymphocytes # 1.8 (1.0-4.8) k/uL Monocytes # 0.6 (0-1.0) k/uL Eosinophils # 0.1 (0-0.7) k/uL Basophils # 0.0 (0-0.2) k/uL Macrocytosis Slight PT 24.2 H (9.0-12.0) sec INR 2.5 H (<1.2) APTT 31.4 H (22.0-30.0) sec Sodium 134 L (137-145) mmol/L Potassium 4.6 (3.5-5.1) mmol/L Chloride 99 (98-107) mmol/L Carbon Dioxide 27 (22-30) mmol/L Anion Gap 8 mmol/L BUN 9 (9-20) mg/dL Creatinine 0.79 (0.66-1.25) mg/dL Est GFR (CKD-EPI)AfAm >90 (>60 ml/min/1.73 sqM) Est GFR (CKD-EPI)NonAf >90 (>60 ml/min/1.73 sqM) Glucose 141 H (74-99) mg/dL Calcium 9.6 (8.4-10.2) mg/dL Magnesium 1.9 (1.6-2.3) mg/dL Total Bilirubin 0.9 (0.2-1.3) mg/dL AST 65 H (17-59) U/L ALT 40 (4-49) U/L Alkaline Phosphatase 103 (38-126) U/L Troponin I (0.000-0.034) ng/mL Total Protein 7.5 (6.3-8.2) g/dL Albumin 4.2 (3.5-5.0) g/dL 12/27/19 Range/Units 17:45 WBC (3.8-10.6) k/uL RBC (4.30-5.90) m/uL Hgb (13.0-17.5) gm/dL Hct (39.0-53.0) % MCV (80.0-100.0) fL MCH (25.0-35.0) pg MCHC (31.0-37.0) g/dL RDW (11.5-15.5) % Plt Count (150-450) k/uL Neutrophils % % Lymphocytes % % Monocytes % % Eosinophils % % Basophils % % Neutrophils # (1.3-7.7) k/uL Lymphocytes # (1.0-4.8) k/uL Monocytes # (0-1.0) k/uL Eosinophils # (0-0.7) k/uL Basophils # (0-0.2) k/uL Macrocytosis PT (9.0-12.0) sec INR (<1.2) APTT (22.0-30.0) sec Sodium (137-145) mmol/L Potassium (3.5-5.1) mmol/L Chloride (98-107) mmol/L Carbon Dioxide (22-30) mmol/L Anion Gap mmol/L BUN (9-20) mg/dL Creatinine (0.66-1.25) mg/dL Est GFR (CKD-EPI)AfAm (>60 ml/min/1.73 sqM) Est GFR (CKD-EPI)NonAf (>60 ml/min/1.73 sqM) Glucose (74-99) mg/dL Calcium (8.4-10.2) mg/dL Magnesium (1.6-2.3) mg/dL Total Bilirubin (0.2-1.3) mg/dL AST (17-59) U/L ALT (4-49) U/L Alkaline Phosphatase (38-126) U/L Troponin I <0.012 (0.000-0.034) ng/mL Total Protein (6.3-8.2) g/dL Albumin (3.5-5.0) g/dL Disposition Clinical Impression: Chest pain Disposition: ADMITTED IP TO THIS HOSP Condition: Fair Referrals: Juancarlos Townsend DO [Primary Care Provider] - 1-2 days Decision Time: 18:42
[2019-12-27] MEDS ORDERED: ASPIRIN 81 MG PO STA (18:41)
[2019-12-27] MEDS ORDERED: NITROGLYCERIN SL TABS 0.4 MG TAB SUBLINGUAL PRN (18:42)
[2019-12-28 07:26] LABS: Cholesterol 135 mg/dL (<200); HDL Cholesterol 71 mg/dL (40-60); LDL Cholesterol,Calculated 51 mg/dL (0-99); Triglycerides 66 mg/dL (<150)
[2019-12-28 07:54] VITALS: PULSE 54; RESP 16
--- NOTE | 2019-12-28 08:00 | P.CRDCN ---
History of Present Illness Consult date: 12/28/19 Chief complaint: Chest discomfort History of present illness: This is a very pleasant 64-year-old gentleman with coronary artery disease and prior coronary artery stenting as well as coronary artery that is grafting where in 2017 the patient underwent CABG 2 with KISHORE to LAD and ROPER to OM. He is known to have stenting in the RCA in the past. Beside that he does have hypertension, dyslipidemia, and paroxysmal atrial fibrillation on oral a nticoagulation was Coumadin. He was in his usual state of health until yesterday when he was camping when he started experiencing discomfort in the chest. He described the discomfort as sharp, in the mid of the chest, without any radiation, without any associated symptoms with the discomfort lasted for about an hour and it was resolved and the patient continues to be chest pain- free after that and during his hospital stay. Currently is chest pain-free. He stated that the chest discomfort this time is totally different from what he experienced in the past before he is stent and open heart. No assisted symptoms of shortness of breath, sweating, dizziness, or syncope. He underwent a workup including chest x-ray showed chronic finding. The EKG showed sinus rhythm was sinus bradycardia. No significant ST or T-wave abnormalities. The cardiac enzymes were checked and came in to be unremarkable. The patient blood pressure this morning is elevated but he was not giving his blood pressure medications since he was admitted to the hospital. I am going to restart him on his medications. We'll get the patient up and around and if he is asymptomatic, he possibly can be discharged home and follow-up with Dr. Gilman his science manager. As a matter fact patient would like to go home. Past Medical History Past Medical History: Atrial Fibrillation, Hyperlipidemia, Hypertension, Myocardial Infarction ([place]) Additional Past Medical History / Comment(s): gout, "borderline diabetic"-diet control Last Myocardial Infarction Date:: 1999 History of Any Multi-Drug Resistant Organisms: None Reported Past Surgical History: Coronary Bypass/CABG, Heart Catheterization With Stent Additional Past Surgical History / Comment(s): stent x1 Past Anesthesia/Blood Transfusion Reactions: No Reported Reaction Date of Last Stent Placement:: 1999 Past Psychological History: No Psychological Hx Reported Smoking Status: Never smoker Past Alcohol Use History: Abuse, Daily Past Drug Use History: None Reported - Past Family History Sister(s) Family Medical History: Cancer Additional Family Medical History / Comment(s): THYROID Medications and Allergies Home Medications Medication Instructions Recorded Confirmed Type Amiodarone [Cordarone] 200 mg PO DAILY tab 12/09/16 12/27/19 Rx Atorvastatin [Lipitor] 40 mg PO DAILY tab 12/09/16 12/27/19 Rx Colchicine [Colcrys] 0.6 mg PO BID PRN #0 tab 12/09/16 12/27/19 Rx Furosemide [Lasix] 40 mg PO DAILY tab 12/09/16 12/27/19 Rx Metoprolol Tartrate [Lopressor] 50 mg PO BID tab 12/09/16 12/27/19 Rx Sertraline [Zoloft] 50 mg PO DAILY tab 12/09/16 12/27/19 Rx Warfarin [Coumadin] 1.25 mg PO SUTUWETHFRSA 05/03/17 12/27/19 History Aspirin 81 mg PO DAILY 05/04/17 12/27/19 History Lisinopril [Zestril] 10 mg PO DAILY 07/02/17 12/27/19 History Multivitamins, Thera [Multivitamin 1 tab PO DAILY 07/02/17 12/27/19 History (formulary)] Potassium Chloride [Klor-Con 10] 20 meq PO BID 07/02/17 12/27/19 History Allergies Allergy/AdvReac Type Severity Reaction Status Date / Time Penicillins Allergy Rash/Hives Verified 12/27/19 17:18 Physical Exam Vitals: Vital Signs Temp Pulse Pulse Resp BP BP BP 12/28/19 07:51 98.2 F 54 L 16 173/76 12/28/19 04:00 96.7 F L 48 L 18 170/78 12/28/19 00:00 96.7 F L 51 L 18 165/74 12/27/19 20:00 98.7 F 49 L 18 184/84 12/27/19 19:00 48 L 10 L 126/70 12/27/19 18:57 51 L 18 126/70 12/27/19 18:32 55 L 12/27/19 17:15 98.3 F 53 L 18 196/85 Pulse Ox 12/28/19 07:51 97 12/28/19 04:00 98 12/28/19 00:00 98 12/27/19 20:00 98 12/27/19 19:00 98 12/27/19 18:57 97 12/27/19 18:32 12/27/19 17:15 98 Intake and Output 12/27/19 12/28/19 12/28/19 22:59 06:59 14:59 Other: # Voids 1 Weight 92.986 kg - Constitutional General appearance: no acute distress - Respiratory Respiratory: bilateral: CTA - Cardiovascular Rhythm: regular Heart sounds: normal: S1, S2 Abnormal Heart Sounds: systolic murmur Results 12/27/19 17:45 12/27/19 17:45 Cardiac Enzymes 12/27/19 12/27/19 12/27/19 Range/Units 17:45 17:45 23:41 AST 65 H (17-59) U/L Troponin I <0.012 <0.012 (0.000-0.034) ng/mL 12/28/19 Range/Units 06:30 AST (17-59) U/L Troponin I <0.012 (0.000-0.034) ng/mL Coagulation 12/27/19 Range/Units 17:45 PT 24.2 H (9.0-12.0) sec APTT 31.4 H (22.0-30.0) sec Lipids 12/28/19 Range/Units 06:30 Triglycerides 66 (<150) mg/dL Cholesterol 135 (<200) mg/dL HDL Cholesterol 71 H (40-60) mg/dL CBC 12/27/19 Range/Units 17:45 WBC 6.9 (3.8-10.6) k/uL RBC 3.96 L (4.30-5.90) m/uL Hgb 13.0 (13.0-17.5) gm/dL Hct 40.2 (39.0-53.0) % Plt Count 245 (150-450) k/uL Comprehensive Metabolic Panel 12/27/19 Range/Units 17:45 Sodium 134 L (137-145) mmol/L Potassium 4.6 (3.5-5.1) mmol/L Chloride 99 (98-107) mmol/L Carbon Dioxide 27 (22-30) mmol/L BUN 9 (9-20) mg/dL Creatinine 0.79 (0.66-1.25) mg/dL Glucose 141 H (74-99) mg/dL Calcium 9.6 (8.4-10.2) mg/dL AST 65 H (17-59) U/L ALT 40 (4-49) U/L Alkaline Phosphatase 103 (38-126) U/L Total Protein 7.5 (6.3-8.2) g/dL Albumin 4.2 (3.5-5.0) g/dL Current Medications Generic Name Dose Route Start Last Admin Trade Name Freq PRN Reason Stop Dose Admin Aspirin 325 mg 12/28/19 09:00 Aspirin PO DAILY GALINA Nitroglycerin 0.4 mg 12/27/19 18:42 Nitrostat SUBLINGUAL Q5M PRN Chest Pain Intake and Output 12/27/19 12/28/19 12/28/19 22:59 06:59 14:59 Other: # Voids 1 Weight 92.986 kg 12/27/19 17:45 12/27/19 17:45 Assessment and Plan Assessment: Assessment #1 chest discomfort seems to be atypical for angina #2 coronary artery disease and preoperative vascularization #3 paroxysmal atrial fibrillation #4 hypertension #5 dyslipidemia Plan #1 acute coronary event was ruled out #2 would get the patient up and around and if he is asymptomatic he possibly can be discharged home Thank you for allowing us participate in his care
[2019-12-28] MEDS ORDERED: ASPIRIN 325 MG TAB PO SCH (09:00)
[2019-12-28] MEDS ORDERED: AMIODARONE 200 MG TAB PO SCH (09:30)
[2019-12-28] MEDS ORDERED: COLCHICINE 0.6 MG EACH PO PRN (09:30)
[2019-12-28] MEDS ORDERED: FUROSEMIDE 40 MG TAB PO SCH (09:45)
[2019-12-28] MEDS ORDERED: MULTIVITAMINS, THERA 1 EACH TAB PO SCH (09:45)
[2019-12-28] MEDS ORDERED: POTASSIUM CHLORIDE ER 10 MEQ TAB.ER.PRT PO SCH (09:45)
[2019-12-28] MEDS ORDERED: METOPROLOL TARTRATE 50 MG TAB PO SCH (09:45)
[2019-12-28] MEDS ORDERED: ATORVASTATIN 40 MG TAB PO SCH (09:45)
[2019-12-28] MEDS ORDERED: LISINOPRIL 10 MG TAB PO SCH (09:45)
[2019-12-28] MEDS ORDERED: SERTRALINE 50 MG TAB PO SCH (09:45)
[2019-12-28] MEDS ORDERED: WARFARIN 1.25 MG TAB PO SCH ×2 (09:57→18:00)
[2019-12-28 11:48] VITALS: BP 129/75; TEMP 98
--- NOTE | 2019-12-28 14:27 | P.HPIM ---
History of Present Illness 64-year-old male with known history of coronary artery disease and stenting CABG atrial fibrillation on anticoagulation came in with complaints of mild chest pain on the side of the chest noncardiac resolved within a few seconds denied any shortness of breath excessive dizziness, short diaphoresis associated with that. Chest x-ray did not show any significant abnormality patient the denied any fever chills cough. Patient was evaluated by cardiology rule out acute coronary syndromes no significant ST-T wave changes troponins are negative patient is cleared for discharge from cardiology perspective patient blood pressure is bit elevated because of which lisinopril was added by cardiology patient will be discharged on lisinopril Review of Systems REVIEW OF SYSTEMS: CONSTITUTIONAL: No fever, no malaise, no fatigue. HEENT: No recent visual problems or hearing problems. Denied any sore throat. CARDIOVASCULAR: No, orthopnea, PND, no palpitations, no syncope. PULMONARY: No shortness of breath, no cough, no hemoptysis. GASTROINTESTINAL: No diarrhea, no nausea, no vomiting, no abdominal pain. NEUROLOGICAL: No headaches, no weakness, no numbness. HEMATOLOGICAL: Denies any bleeding or petechiae. GENITOURINARY: Denies any burning micturition, frequency, or urgency. MUSCULOSKELETAL/RHEUMATOLOGICAL: Denies any joint pain, swelling, or any muscle pain. ENDOCRINE: Denies any polyuria or polydipsia. The rest of the 14-point review of systems is negative. Past Medical History Past Medical History: Atrial Fibrillation, Hyperlipidemia, Hypertension, Myocardial Infarction ([place]) Additional Past Medical History / Comment(s): gout, "borderline diabetic"-diet control Last Myocardial Infarction Date:: 1999 History of Any Multi-Drug Resistant Organisms: None Reported Past Surgical History: Coronary Bypass/CABG, Heart Catheterization With Stent Additional Past Surgical History / Comment(s): stent x1 Past Anesthesia/Blood Transfusion Reactions: No Reported Reaction Date of Last Stent Placement:: 1999 Past Psychological History: No Psychological Hx Reported Smoking Status: Never smoker Past Alcohol Use History: Abuse, Daily Past Drug Use History: None Reported - Past Family History Sister(s) Family Medical History: Cancer Additional Family Medical History / Comment(s): THYROID Medications and Allergies Home Medications Medication Instructions Recorded Confirmed Type Metoprolol Tartrate [Lopressor] 50 mg PO BID tab 12/09/16 12/27/19 Rx Warfarin [Coumadin] 1.25 mg PO SUTUWETHFRSA 05/03/17 12/27/19 History Aspirin 81 mg PO DAILY 05/04/17 12/27/19 History Multivitamins, Thera [Multivitamin 1 tab PO DAILY 07/02/17 12/27/19 History (formulary)] Amiodarone [Cordarone] 100 mg PO DAILY 12/28/19 12/28/19 History Atorvastatin [Lipitor] 40 mg PO HS 12/28/19 12/28/19 History Lisinopril [Zestril] 10 mg PO DAILY #30 tab 12/28/19 Rx Allergies Allergy/AdvReac Type Severity Reaction Status Date / Time Penicillins Allergy Rash/Hives Verified 12/28/19 10:56 Physical Exam Vitals: Vital Signs Temp Pulse Pulse Resp BP BP BP 12/28/19 11:45 98 F 54 L 16 129/75 12/28/19 07:51 98.2 F 54 L 16 173/76 12/28/19 04:00 96.7 F L 48 L 18 170/78 12/28/19 00:00 96.7 F L 51 L 18 165/74 12/27/19 20:00 98.7 F 49 L 18 184/84 12/27/19 19:00 48 L 10 L 126/70 12/27/19 18:57 51 L 18 126/70 12/27/19 18:32 55 L 12/27/19 17:15 98.3 F 53 L 18 196/85 Pulse Ox 12/28/19 11:45 99 12/28/19 07:51 97 12/28/19 04:00 98 12/28/19 00:00 98 12/27/19 20:00 98 12/27/19 19:00 98 12/27/19 18:57 97 12/27/19 18:32 12/27/19 17:15 98 Intake and Output 12/27/19 12/28/19 12/28/19 22:59 06:59 14:59 Intake Total 1919 Balance 1919 Intake: Oral 1919 Other: Voiding Method Toilet # Voids 1 1 Weight 92.986 kg PHYSICAL EXAMINATION: GENERAL: The patient is alert and oriented x3, not in any acute distress. Well developed, well nourished. HEENT: Pupils are round and equally reacting to light. EOMI. No scleral icterus. No conjunctival pallor. Normocephalic, atraumatic. No pharyngeal erythema. No thyromegaly. CARDIOVASCULAR: S1 and S2 present. No murmurs, rubs, or gallops. PULMONARY: Chest is clear to auscultation, no wheezing or crackles. ABDOMEN: Soft, nontender, nondistended, normoactive bowel sounds. No palpable organomegaly. MUSCULOSKELETAL: No joint swelling or deformity. EXTREMITIES: No cyanosis, clubbing, or pedal edema. NEUROLOGICAL: Gross neurological examination did not reveal any focal deficits. SKIN: No rashes. Results CBC & Chem 7: 12/27/19 17:45 12/27/19 17:45 Labs: Abnormal Lab Results - Last 24 Hours (Table) 12/27/19 12/27/19 12/27/19 Range/Units 17:45 17:45 17:45 RBC 3.96 L (4.30-5.90) m/uL MCV 101.5 H (80.0-100.0) fL PT 24.2 H (9.0-12.0) sec INR 2.5 H (<1.2) APTT 31.4 H (22.0-30.0) sec Sodium 134 L (137-145) mmol/L Glucose 141 H (74-99) mg/dL AST 65 H (17-59) U/L HDL Cholesterol (40-60) mg/dL 12/28/19 Range/Units 06:30 RBC (4.30-5.90) m/uL MCV (80.0-100.0) fL PT (9.0-12.0) sec INR (<1.2) APTT (22.0-30.0) sec Sodium (137-145) mmol/L Glucose (74-99) mg/dL AST (17-59) U/L HDL Cholesterol 71 H (40-60) mg/dL Thrombosis Risk Factor Assmnt - Choose All That Apply Any of the Below Risk Factors Present?: Yes Each Factor Represents 1 point: Acute [place], Obesity (BMI >25) Other Risk Factors: Yes Each Risk Factor Represents 2 Points: Age 61-74 years Other congenital or acquired thrombophilia - If yes, enter type in comment: No Thrombosis Risk Factor Assessment Total Risk Factor Score: 4 Thrombosis Risk Factor Assessment Level: Moderate Risk Assessment and Plan Plan: -Chest pain atypical probably musculoskeletal rule out acute coronary syndromes patient is cleared for discharge patient will be discharged today. -Hypertension patient will be started on lisinopril -Mild hyponatremia probably hypovolemic hyponatremia patient doesn't appear to be in heart failure exacerbation -chronic A. fib presently rate controlled and patient is on anticoagulationand m edications are being made patient's smile bradycardia patient on amiodarone and metoprolol which can be continued. Patient is therapeutic on Coumadin -Hyperlipidemia -Coronary artery disease with previous stents
--- NOTE | 2019-12-28 14:27 | P.DS ---
Providers Date of admission: 12/27/19 18:42 Attending physician: Ashley Jordan Consults: 12/27/19 18:42 Consult Physician Urgent Consulting Provider: Av Caruso Consult Reason/Comments: chest pain Do you want consulting provider notified?: Yes Primary care physician: Juancarlos Townsend [facility] Course: As mentioned in HPI Patient Condition at Discharge: Fair Plan - Discharge Summary Discharge Rx Participant: No New Discharge Prescriptions: New Lisinopril [Zestril] 10 mg PO DAILY #30 tab Continue Metoprolol Tartrate [Lopressor] 50 mg PO BID tab Warfarin [Coumadin] 1.25 mg PO SUTUWETHFRSA Aspirin 81 mg PO DAILY Multivitamins, Thera [Multivitamin (formulary)] 1 tab PO DAILY Atorvastatin [Lipitor] 40 mg PO HS Amiodarone [Cordarone] 100 mg PO DAILY Discontinued Potassium Chloride [Klor-Con 10] 20 meq PO BID Discharge Medication List Metoprolol Tartrate [Lopressor] 50 mg PO BID tab 12/09/16 [Rx] Warfarin [Coumadin] 1.25 mg PO SUTUWETHFRSA 05/03/17 [History] Aspirin 81 mg PO DAILY 05/04/17 [History] Multivitamins, Thera [Multivitamin (formulary)] 1 tab PO DAILY 07/02/17 [History] Amiodarone [Cordarone] 100 mg PO DAILY 12/28/19 [History] Atorvastatin [Lipitor] 40 mg PO HS 12/28/19 [History] Lisinopril [Zestril] 10 mg PO DAILY #30 tab 12/28/19 [Rx] Follow up Appointment(s)/Referral(s): Juancarlos Townsend DO [Primary Care Provider] - 3 Days Patient Instructions/Handouts: Chest Pain (DC) Discharge Disposition: HOME SELF-CARE
[2019-12-28] MEDS ORDERED: WARFARIN 2.5 MG TAB PO SCH (18:00)
== END 2019-12-28 15:35 | disposition home or self-care (01) ==
LOC: EC 17:11 → 1SOBS 18:42
PROVIDERS: ADMIT Hospitalist; ATTEND Hospitalist
DX: R07.89 Other chest pain (principal); I10 Essential (primary) hypertension; E87.1 Hypo-osmolality and hyponatremia; I48.0 Paroxysmal atrial fibrillation; E78.5 Hyperlipidemia, unspecified; I25.10 Atherosclerotic heart disease of native coronary artery without angina pectoris; R20.0 Anesthesia of skin; R00.1 Bradycardia, unspecified; I25.2 Old myocardial infarction; M10.9 Gout, unspecified; R73.03 Prediabetes; E66.9 Obesity, unspecified; Z68.30 Body mass index [BMI] 30.0-30.9, adult; Z95.1 Presence of aortocoronary bypass graft; Z79.01 Long term (current) use of anticoagulants; Z79.82 Long term (current) use of aspirin; Z79.899 Other long term (current) drug therapy; Z88.0 Allergy status to penicillin; Z95.5 Presence of coronary angioplasty implant and graft; Z87.891 Personal history of nicotine dependence; Z80.8 Family history of malignant neoplasm of other organs or systems
CPT/HCPCS: 93005 ×2; 99285; 36415; 80061; 80053; 83735; 84484 ×2; 85025; 85610; 85730; 71046; G0378 ×2

== ENCOUNTER → 2020-11-30 | Outpatient (CLI) | payer BC ==
--- NOTE | 2020-12-01 08:57 | XR ---
EXAMINATION TYPE: XR abdomen 2V DATE OF EXAM: 11/30/2020 COMPARISON: 11/26/2016 INDICATION: Constipation TECHNIQUE: Single view abdomen supine and upright views. FINDINGS: Nonspecific bowel gas pattern. Air is within small bowel loops as well as the colon. No mass effect i s evident. No free air is evident. No suspicious differential air-fluid levels are present. Psoas margins are normal. No organomegaly is present. IMPRESSION: 1. Nonspecific abdomen.
== END | disposition home or self-care (01) ==
LOC: RADXRYALE 16:14
PROVIDERS: ATTEND Physician Assistant Medical
DX: K59.00 Constipation, unspecified (principal)
CPT/HCPCS: 74019

== ENCOUNTER 2021-07-16 12:09 | Emergency (ER) | payer BC ==
[2021-07-16 12:17] VITALS: TEMP 97.7
[2021-07-16] MEDS ORDERED: SODIUM CHLORIDE 0.9% 1,000 ML IV STA (12:25)
[2021-07-16] MEDS ORDERED: ONDANSETRON 4 MG/2 ML VIAL IVP STA (12:25)
--- NOTE | 2021-07-16 12:28 | ED ---
General Adult HPI - General Chief complaint: Dizziness Stated complaint: Fall, Weakness Time Seen by Provider: 07/16/21 12:15 Source: patient, EMS Mode of arrival: EMS Limitations: no limitations - History of Present Illness Initial comments: 66-year-old male past medical history of coronary artery disease with bypass, A. fib on Coumadin and daily alcohol abuse presents to the emergency Department with reported weakness. States that he drank heavily yesterday. Drank 10 beers which is atypical for him. Normally drinks 3-4 times per week, 5 beers at a time. His morning he woke up and was nauseated. Went outside himself. Came back inside and attempted to use restroom. He was unable to get up off the toilet and his had a system to the bed. He ended up sustaining a fall and fell onto his back. Denies hitting his head or losing consciousness. States his been unable to eat, drink or take his medications today. His called EMS. Upon arrival patient seems asymptomatic at this time - Related Data Home Medications Medication Instructions Recorded Confirmed Multivitamins, Thera [Multivitamin 1 tab PO DAILY 07/02/17 07/16/21 (formulary)] Amiodarone [Cordarone] 100 mg PO DAILY 12/28/19 07/16/21 Atorvastatin [Lipitor] 40 mg PO DAILY 12/28/19 07/16/21 Aspirin EC [Ecotrin Low Dose] 81 mg PO DAILY 07/16/21 07/16/21 Warfarin [Coumadin] 1 mg PO HS 07/16/21 07/16/21 lisinopriL [Zestril] 10 mg PO BID 07/16/21 07/16/21 Previous Rx's Medication Instructions Recorded Metoprolol Tartrate [Lopressor] 50 mg PO BID tab 12/09/16 Allergies Allergy/AdvReac Type Severity Reaction Status Date / Time Penicillins Allergy Unknown Verified 07/16/21 13:12 Childhood Review of Systems ROS Statement: Those systems with pertinent positive or pertinent negative responses have been documented in the HPI. ROS Other: All systems not noted in ROS Statement are negative. Past Medical History Past Medical History: Atrial Fibrillation, Hyperlipidemia, Hypertension, Myocardial Infarction ([place]) Additional Past Medical History / Comment(s): gout, "borderline diabetic"-diet control Last Myocardial Infarction Date:: 1999 History of Any Multi-Drug Resistant Organisms: None Reported Past Surgical History: Coronary Bypass/CABG, Heart Catheterization With Stent Additional Past Surgical History / Comment(s): stent x1 Past Anesthesia/Blood Transfusion Reactions: No Reported Reaction Date of Last Stent Placement:: 1999 Past Psychological History: No Psychological Hx Reported Smoking Status: Never smoker Past Alcohol Use History: Abuse, Daily Past Drug Use History: None Reported - Past Family History Sister(s) Family Medical History: Cancer Additional Family Medical History / Comment(s): THYROID General Exam Limitations: no limitations Course Vital Signs 07/16/21 07/16/21 07/16/21 12:12 13:37 15:57 Temperature 97.7 F Pulse Rate 53 L 51 L 50 L Respiratory 18 16 18 Rate Blood Pressure 115/72 110/61 116/81 O2 Sat by Pulse 98 100 97 Oximetry EKG Findings - EKG Comments: EKG Findings:: EKG demonstrated a sinus bradycardia with a ventricular rate of 49. IA interval 246. QRS 98. QTC of 464. No acute ST segment elevations or depressions. High degree block Medical Decision Making - Medical Decision Making Upon arrival the patient is placed into room 3. A thorough history and physical exam was performed. IV is established and laboratory studies are conducted. Lactic acid 2.4. AST and ALT mildly elevated. Alcohol 230. INR 1.9. Patient is given a liter bolus of normal saline and 4 mg of Zofran. Chest x-ray p erformed. Mild cardiomegaly and chronic parenchymal changes. Patient is able to get up and ambulate on his own. His is at bedside. I did discuss the laboratory studies. Patient's will be discharged home in the care of his . feels comfortable taking his home. Instructed that he should stop drinking. Follow-up with his primary care doctor 2-4 days. Return for any new worsening symptoms. Patient agreed to this was completely asymptomatic and states that he was eager to go home. Patient discharged in stable condition - Lab Data Result diagrams: 07/16/21 13:02 07/16/21 13:02 Lab Results 07/16/21 07/16/21 07/16/21 Range/Units 12:50 13:00 13:02 WBC 3.9 (3.8-10.6) k/uL RBC 3.62 L (4.30-5.90) m/uL Hgb 13.1 (13.0-17.5) gm/dL Hct 38.5 L (39.0-53.0) % MCV 106.2 H (80.0-100.0) fL MCH 36.1 H (25.0-35.0) pg MCHC 34.0 (31.0-37.0) g/dL RDW 15.1 (11.5-15.5) % Plt Count 165 (150-450) k/uL MPV 8.5 Neutrophils % 60 % Lymphocytes % 31 % Monocytes % 6 % Eosinophils % 1 % Basophils % 1 % Neutrophils # 2.3 (1.3-7.7) k/uL Lymphocytes # 1.2 (1.0-4.8) k/uL Monocytes # 0.2 (0-1.0) k/uL Eosinophils # 0.0 (0-0.7) k/uL Basophils # 0.0 (0-0.2) k/uL Macrocytosis Moderate PT (9.0-12.0) sec INR (<1.2) APTT (22.0-30.0) sec Sodium (137-145) mmol/L Potassium (3.5-5.1) mmol/L Chloride (98-107) mmol/L Carbon Dioxide (22-30) mmol/L Anion Gap mmol/L BUN (9-20) mg/dL Creatinine (0.66-1.25) mg/dL Est GFR (CKD-EPI)AfAm (>60 ml/min/1.73 sqM) Est GFR (CKD-EPI)NonAf (>60 ml/min/1.73 sqM) Glucose (74-99) mg/dL Lactic Ac Sepsis Rflx Plasma Lactic Acid Jeromy 2.4 H* (0.7-2.0) mmol/L Calcium (8.4-10.2) mg/dL Magnesium (1.6-2.3) mg/dL Total Bilirubin (0.2-1.3) mg/dL AST (17-59) U/L ALT (4-49) U/L Alkaline Phosphatase (38-126) U/L Troponin I (0.000-0.034) ng/mL Total Protein (6.3-8.2) g/dL Albumin (3.5-5.0) g/dL Serum Alcohol mg/dL Coronavirus (PCR) Not Detected (Not Detectd) 07/16/21 07/16/21 07/16/21 Range/Units 13:02 13:02 13:21 WBC (3.8-10.6) k/uL RBC (4.30-5.90) m/uL Hgb (13.0-17.5) gm/dL Hct (39.0-53.0) % MCV (80.0-100.0) fL MCH (25.0-35.0) pg MCHC (31.0-37.0) g/dL RDW (11.5-15.5) % Plt Count (150-450) k/uL MPV Neutrophils % % Lymphocytes % % Monocytes % % Eosinophils % % Basophils % % Neutrophils # (1.3-7.7) k/uL Lymphocytes # (1.0-4.8) k/uL Monocytes # (0-1.0) k/uL Eosinophils # (0-0.7) k/uL Basophils # (0-0.2) k/uL Macrocytosis PT 18.6 H (9.0-12.0) sec INR 1.9 H (<1.2) APTT 29.4 (22.0-30.0) sec Sodium 131 L (137-145) mmol/L Potassium 4.8 (3.5-5.1) mmol/L Chloride 101 (98-107) mmol/L Carbon Dioxide 18 L (22-30) mmol/L Anion Gap 12 mmol/L BUN 23 H (9-20) mg/dL Creatinine 1.30 H (0.66-1.25) mg/dL Est GFR (CKD-EPI)AfAm 65 (>60 ml/min/1.73 sqM) Est GFR (CKD-EPI)NonAf 56 (>60 ml/min/1.73 sqM) Glucose 125 H (74-99) mg/dL Lactic Ac Sepsis Rflx Plasma Lactic Acid Jeromy (0.7-2.0) mmol/L Calcium 8.5 (8.4-10.2) mg/dL Magnesium 1.7 (1.6-2.3) mg/dL Total Bilirubin 1.0 (0.2-1.3) mg/dL AST 203 H (17-59) U/L ALT 108 H (4-49) U/L Alkaline Phosphatase 143 H (38-126) U/L Troponin I <0.012 (0.000-0.034) ng/mL Total Protein 6.7 (6.3-8.2) g/dL Albumin 3.2 L (3.5-5.0) g/dL Serum Alcohol 230 H* mg/dL Coronavirus (PCR) (Not Detectd) 07/16/21 Range/Units 13:59 WBC (3.8-10.6) k/uL RBC (4.30-5.90) m/uL Hgb (13.0-17.5) gm/dL Hct (39.0-53.0) % MCV (80.0-100.0) fL MCH (25.0-35.0) pg MCHC (31.0-37.0) g/dL RDW (11.5-15.5) % Plt Count (150-450) k/uL MPV Neutrophils % % Lymphocytes % % Monocytes % % Eosinophils % % Basophils % % Neutrophils # (1.3-7.7) k/uL Lymphocytes # (1.0-4.8) k/uL Monocytes # (0-1.0) k/uL Eosinophils # (0-0.7) k/uL Basophils # (0-0.2) k/uL Macrocytosis PT (9.0-12.0) sec INR (<1.2) APTT (22.0-30.0) sec Sodium (137-145) mmol/L Potassium (3.5-5.1) mmol/L Chloride (98-107) mmol/L Carbon Dioxide (22-30) mmol/L Anion Gap mmol/L BUN (9-20) mg/dL Creatinine (0.66-1.25) mg/dL Est GFR (CKD-EPI)AfAm (>60 ml/min/1.73 sqM) Est GFR (CKD-EPI)NonAf (>60 ml/min/1.73 sqM) Glucose (74-99) mg/dL Lactic Ac Sepsis Rflx Y Plasma Lactic Acid Jeromy (0.7-2.0) mmol/L Calcium (8.4-10.2) mg/dL Magnesium (1.6-2.3) mg/dL Total Bilirubin (0.2-1.3) mg/dL AST (17-59) U/L ALT (4-49) U/L Alkaline Phosphatase (38-126) U/L Troponin I (0.000-0.034) ng/mL Total Protein (6.3-8.2) g/dL Albumin (3.5-5.0) g/dL Serum Alcohol mg/dL Coronavirus (PCR) (Not Detectd) Disposition Clinical Impression: Alcohol intoxication Disposition: HOME SELF-CARE Condition: Stable Instructions (If sedation given, give patient instructions): Alcohol Intoxication (ED) Additional Instructions: I recommend that you stop drinking. Please follow-up to primary care doctor in 2-4 days. Return to the emergency room for any new or worsening symptoms Is patient prescribed a controlled substance at d/c from ED?: No Referrals: Juancarlos Townsend DO [Primary Care Provider] - 1-2 days Time of Disposition: 15:54
[2021-07-16 13:40] LABS: Albumin 3.2 g/dL (3.5-5.0); Calcium 8.5 mg/dL (8.4-10.2); Magnesium 1.7 mg/dL (1.6-2.3); Potassium 4.8 mmol/L (3.5-5.1); Total Protein 6.7 g/dL (6.3-8.2)
[2021-07-16 13:53] LABS: INR 1.9 (<1.2); Partial Thromboplastin Time 29.4 sec (22.0-30.0); Prothrombin Time 18.6 sec (9.0-12.0)
--- NOTE | 2021-07-16 13:54 | XR ---
EXAMINATION TYPE: XR chest 2V DATE OF EXAM: 07/16/2021 COMPARISON: Chest x-ray December 27, 2019. CTA chest October 02, 2019 HISTORY: Weakness. TECHNIQUE: Frontal and lateral views of the chest are obtained. FINDINGS: Overlying sternal wires and mediastinal clips are redemonstrated. There is mild chronic par enchymal changes without suspicious new focal air space opacity, pleural effusion, or pneumothorax se en. Mild cardiomegaly redemonstrated. The osseous structures are intact. IMPRESSION: Mild cardiomegaly and chronic parenchymal changes without new acute pulmonary process.
[2021-07-16 14:28] LABS: Basophils % (A) 1 %; Eosinophils % (A) 1 %; HCT 38.5 % (39.0-53.0); HGB 13.1 gm/dL (13.0-17.5); Lymphocytes # (A) 1.2 k/uL (1.0-4.8); Lymphocytes % (A) 31 %; MCH 36.1 pg (25.0-35.0); MCV 106.2 fL (80.0-100.0); Macrocytosis Moderate; Mean Platelet Volume 8.5; Monocytes # (A) 0.2 k/uL (0-1.0); Monocytes % (A) 6 %; Neutrophils # (A) 2.3 k/uL (1.3-7.7); Neutrophils % (A) 60 %; Platelet Count 165 k/uL (150-450); RBC 3.62 m/uL (4.30-5.90); RDW 15.1 % (11.5-15.5); WBC 3.9 k/uL (3.8-10.6)
[2021-07-16 15:58] VITALS: BP 116/81; PULSE 50; RESP 18
== END 2021-07-16 16:06 | disposition home or self-care (01) ==
LOC: EC 12:09
DX: F10.129 Alcohol abuse with intoxication, unspecified (principal); I48.91 Unspecified atrial fibrillation; E78.5 Hyperlipidemia, unspecified; I10 Essential (primary) hypertension; I25.2 Old myocardial infarction; Z20.822 Contact with and (suspected) exposure to COVID-19; Z79.82 Long term (current) use of aspirin; Z79.01 Long term (current) use of anticoagulants; Z88.0 Allergy status to penicillin; Z95.1 Presence of aortocoronary bypass graft; Y90.7 Blood alcohol level of 200-239 mg/100 ml
CPT/HCPCS: 99285; 96374; 96361; 36415; 93005; 80053; 83605; 83735; 84484; 85025; 85610; 85730; 80320; 87635; 71046; J2405